=== PATIENT | female | born 1950 | race Caucasian/White ===

== ENCOUNTER 2019-08-30 16:37 | Emergency (ER) | payer BC, MEDICARE ==
[~2019-08-30] VITALS: Ht 160 cm; Wt 123.6 kg
[~2019-08-30 16:37] MED LIST: ALPR.25T PO; HYDR1TAB85 PO; INSU1CAR SQ; VNL75CCR PO; ZLP5T PO
--- NOTE | 2019-08-30 17:31 | Diagnostic Imaging Report ---
EXAMINATION: Left ankle 3 views. HISTORY: Fall. FINDINGS: No comparison available. The ankle mortise is intact. Talar dome is normal. No fracture is seen. There is moderate medial malleolar ankle swelling. Extensive vascular calcifications are seen in the leg. There is mild mid foot osteoarthritis. IMPRESSION: 1. Moderate medial malleolar soft tissue swelling without acute fracture seen. Dictated by: Dictated on workstation # [id number]
--- NOTE | 2019-08-30 17:32 | Diagnostic Imaging Report ---
EXAMINATION: Left tibia and fibula 2 views HISTORY: Fall. FINDINGS: No comparison available. Severe knee osteoarthritis. Study evaluated on the dedicated knee imaging. No fracture is seen in the tibia or fibula. Vascular calcifications are noted. IMPRESSION: 1. No fracture in the left tibia or fibula. Dictated by: Dictated on workstation # [id number]
--- NOTE | 2019-08-30 17:33 | Diagnostic Imaging Report ---
EXAMINATION: Left knee 3 views. HISTORY: Fall. FINDINGS: No comparison available. There is severe medial compartment predominant tricompartmental osteoarthritis. Small knee joint effusion is seen. Large osteophytes or loose bodies are seen in the popliteal fossa. No fracture is seen. IMPRESSION: 1. Severe medial compartment predominant tricompartmental osteoarthritis with a small knee joint effusion. 2. No fracture. Dictated by: Dictated on workstation # [id number]
--- NOTE | 2019-08-30 18:13 | ED Lower Extremity ---
General Chief Complaint: Lower Extremity Stated Complaint: LT LEG/KNEE INJ Nursing Triage Note: Patient presents to the ED with c/o left knee, rodriguez, and ankle. States she fell getting into the car yesterday. Her left leg remained in the car and bent backward causing the heel of her foot to touch her bottom. She states that she doesn't bend that way anymore. She report limited ability to bear weight last night and feel as though it is worse today. She went to [facility] walk-in clinic and was sent to the ED for further evaluation. Nursing Sepsis Screen: No Definite Risk Source: patient Exam Limitations: no limitations Allergies and Home Medications Allergies Coded Allergies: Codeine (Verified Allergy, 11/23/11) adhesive tape (Unverified Allergy, 12/16/11) morphine (Verified Allergy, 11/23/11) penicillin G (Verified Allergy, 11/23/11) Home Medications Alprazolam 0.25 Mg Tablet, 1 TAB PO PRN, (Reported) Hydrocodone Bit/Acetaminophen 1 Each Tablet, 1 EACH PO PRN, (Reported) Venlafaxine Hcl 75 Mg Cap, 75 MG PO TID, (Reported) Zolpidem Tartrate 5 Mg Tablet, 1 EACH PO HS, (Reported) Past Hmazbta-Jgeboo-Iwqhuo Hx Patient Social History Alcohol Use: Denies Use Recreational Drug Use: No Smoking Status: Never a Smoker 2nd Hand Smoke Exposure: No Recent Foreign Travel: No Contact w/Someone Who Travel: No Recent Infectious Disease Expo: No Recent Hopitalizations: No Physical Abuse: No Sexual Abuse: No Mistreated: No Fear: No Seasonal Allergies Seasonal Allergies: No Past Medical History Surgeries: Yes (R Masectomy, R Augmentation, ) Gallbladder, Hysterectomy, Orthopedic, Thyroidectomy Respiratory: No Cardiac: No (Lymphedema) Neurological: No 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 Disorders: No [employer]ER History: Hysterectomy Genitourinary: No Gastrointestinal: No Musculoskeletal: Yes (ARTHRITIS) Endocrine: Yes Diabetes, Insulin dep HEENT: No Cancer: Yes Breast Did You Recieve Any Treatments: Yes What Type of Treatment Did You: Surgical Intervention Psychosocial: No Integumentary: No Blood Disorders: No Physical Exam Vital Signs Vital Signs - First Documented 08/30/19 16:45 Temp 36.3 Pulse 104 Resp 18 B/P (MAP) 147/80 (102) Pulse Ox 98 O2 Delivery Room Air Capillary Refill : Less Than 3 Seconds Height, Weight, BMI Height: '" Weight: lbs. oz. kg; 48.00 BMI Method: Progress/Results/Core Measures Results/Orders My Orders Orders - CARLOS LARA MD Ankle 3 View Left (08/30/19 17:00) Knee 3 View Left (08/30/19 17:00) Tibia Fibula 2 View Left (08/30/19 17:01) Vital Signs/I&O 08/30/19 16:45 Temp 36.3 Pulse 104 Resp 18 B/P (MAP) 147/80 (102) Pulse Ox 98 O2 Delivery Room Air Blood Pressure Mean: 102 POS Departure Impression Primary Impression: Left knee injury Qualified Codes: S89.92XA - Unspecified injury of left lower leg, initial encounter Additional Impression: Left ankle injury Qualified Codes: S99.912A - Unspecified injury of left ankle, initial encounter Disposition: HOME, SELF-CARE Condition: Stable Departure-Patient Inst. Decision time for Depature: 18:11 Referrals: SELFBERNADINE MD (PCP/Family) Primary Care Physician Patient Instructions: Knee Sprain (DC) Add. Discharge Instructions: You may continue using naproxen 500 mg twice daily. You may add Tylenol (acetaminophen) up to 1000 mg every 6 hours as needed for additional pain relief. Icing in 20 minute intervals may be helpful in reducing pain and swelling for the first 48 hours. If not improving as expected over the next several days, please contact your doctor next week or return to the emergency room. Return to the emergency room if you have worsening symptoms. Gradually increase level of activity as pain allows. All discharge instructions reviewed with patient and/or family. Voiced un derstanding. CARLOS LARA MD Aug 30, 2019 18:13 POS
[2019-08-30 18:20] VITALS: BP 134/94
== END 2019-08-30 18:20 | disposition home or self-care (01) ==
LOC: EDUNIT# 16:37 → ER FS 16:38
DX: S89.92XA Unspecified injury of left lower leg, initial encounter (principal); S99.912A Unspecified injury of left ankle, initial encounter; E11.9 Type 2 diabetes mellitus without complications; Z85.3 Personal history of malignant neoplasm of breast; Z88.5 Allergy status to narcotic agent; Z88.0 Allergy status to penicillin; Z88.8 Allergy status to other drugs, medicaments and biological substances; Z88.6 Allergy status to analgesic agent; Z90.710 Acquired absence of both cervix and uterus; V48.4XXA Person boarding or alighting a car injured in noncollision transport accident, initial encounter
CPT/HCPCS: 73562; 73590; 73610

== ENCOUNTER → 2019-09-17 | Outpatient (CLI) | payer BC, MEDICARE ==
--- NOTE | 2019-09-17 09:54 | Diagnostic Imaging Report ---
MRI LT LOWER EXT JOINT W/O TECHNIQUE: Multiplanar, multisequence MR imaging of the left knee was performed without contrast. COMPARISON: Left knee radiographs from 08/30/2019 INDICATION: Left knee pain. FINDINGS: Medial compartment: Diffuse full-thickness articular cartilage loss throughout the medial compartment. There is associated underlying subchondral bone marrow edema on both sides of the joint. Degenerative macerated tearing is present throughout the entire medial meniscus with no residual normal meniscus seen in the posterior horn or body. Lateral compartment: Diffuse chondral thinning/where throughout the lateral compartment. Degenerative free edge tear in the body and posterior horn is present. Patellofemoral compartment: Multifocal partial thickness chondral loss throughout the patellofemoral compartment. Focal full-thickness chondral fissuring in the patellar apex. Tendons and ligaments: ACL and PCL appear to remain intact allowing for motion artifact. Medial and lateral collateral ligamentous complexes are also intact. Extensor mechanism is normal. Soft tissues: No knee joint effusion. No Hanna's cyst. Bones: No fracture or marrow replacing process. IMPRESSION: 1. Severe tricompartmental osteoarthritis is most advanced in the medial compartment. 2. There is associated degenerative macerated tearing of the entire medial meniscus. Dictated by: Dictated on workstation # [id number]
--- NOTE | 2019-09-17 09:59 | Diagnostic Imaging Report ---
PROCEDURE: MRI lumbar spine. TECHNIQUE: Multiplanar, multisequence MRI of the lumbar spine was performed without contrast. INDICATION: Recent fall. Now with left knee and lower back pain. COMPARISON: None. FINDINGS: For the purposes of this exam, last well-formed disc space is denoted the L5-S1 level. Static alignment of the lumbar spine is preserved. There is no significant pippa or retrolisthesis. There is no evidence of jumped facets. Vertebral body heights are maintained. There is no evidence of acute fracture. Evaluation of the marrow signal demonstrates mild Modic type I change involving the adjacent endplates at the L3-L4 level on the left. Multiple benign-appearing hemangiomas are also noted. Otherwise, marrow signal is unremarkable. There is multilevel intervertebral disc height loss with anterior and posterior disc bulges. Visualized portions of the distal cord are unremarkable. Conus terminates at approximately the L1 level. No abnormal intrathecal filling defects are seen. Pre and paravertebral soft tissue structures are unremarkable. Axial images demonstrate the following: T12-L1: There is no large disc bulge or focal protrusion. There is no significant spinal canal or neuroforaminal stenosis. L1-L2: There is mild broad-based posterior disc bulge. This results in minimal narrowing of the spinal canal. Neuroforamen are unremarkable. L2-L3: There is broad-based posterior disc bulge and bilateral ligamentum flavum laxity and facet arthropathy. As a result, there is mild narrowing of the spinal canal and bilateral neuroforamen. L3-L4: There is mild broad-based posterior disc bulge and bilateral ligamentum flavum laxity and facet arthropathy. As a result, there is mild narrowing of the spinal canal and bilateral neuroforamen. L4-L5: There is broad-based posterior disc bulge and prominent bilateral ligamentum flavum laxity and facet arthropathy. As a result, there is moderate stenosis of the spinal canal and bilateral neuroforamen. L5-S1: There is no large disc bulge or focal protrusion. There is prominent bilateral facet arthropathy, but no significant spinal canal or neuroforaminal stenosis. IMPRESSION: 1. Multilevel degenerative changes in the lumbar spine, greatest at the L4-L5 level as described above. 2. No acute fracture or dislocation. Dictated by: Dictated on workstation # [id number]
== END ==
LOC: RAD 07:44
PROVIDERS: ATTEND Family Medicine
DX: M17.12 Unilateral primary osteoarthritis, left knee (principal); S83.242A Other tear of medial meniscus, current injury, left knee, initial encounter; M47.816 Spondylosis without myelopathy or radiculopathy, lumbar region; M51.26 Other intervertebral disc displacement, lumbar region; M48.061 Spinal stenosis, lumbar region without neurogenic claudication
CPT/HCPCS: 72148; 73721

== ENCOUNTER 2019-12-24 14:26 | Observation (INO) | payer BC, MEDICARE ==
[~2019-12-24] VITALS: Ht 160 cm; Wt 114.5 kg
--- NOTE | 2019-12-24 14:34 | NUR ---
Pt's family stated she has been out of insulin for insulin pump and asked if we were going to check sugar. I asked the doctor and she stated we can do a finger stick. Tech was delegated to do finger stick.
--- NOTE | 2019-12-24 14:56 | ED Upper Extremity ---
General Chief Complaint: Trauma-Non Activation Stated Complaint: FALL; HEAD INJ Source: patient Exam Limitations: no limitations History of Present Illness Date Seen by Provider: Dec 24, 2019 Time Seen by Provider: 14:48 Initial Comments Patient presents with complaint of neck pain and left shoulder pain. Injury occurring 3 days ago when she got out of bed, slipped on her carpet and fell forward hitting the left side of her head on a nightstand. Did not recall losing consciousness, but her significant other said he found her laying on the floor, awake couple hours after the fall. She denies headache, confusion or dizziness. Does have pain, left forehead in the area that she hit the nightstand and was bruised. Denies radiation of pain from her neck, however is having trouble moving her left arm secondary to pain. Also, requests check of her BP b/c she states she ran out of her insulin today......Accu-check > 600. Allergies and Home Medications Allergies Coded Allergies: adhesive tape (Unverified Allergy, Unknown, 12/24/19) codeine (Verified Allergy, Unknown, 12/24/19) morphine (Verified Allergy, Unknown, 12/24/19) penicillin G (Verified Allergy, Unknown, 12/24/19) Home Medications Atorvastatin Calcium 20 Mg Tablet, 20 MG PO DAILY, (Reported) PT TAKING 20MG AND 40MG Atorvastatin Calcium 40 Mg Tablet, 40 MG PO DAILY, (Reported) TAKING 40MG AND 20 MG Gabapentin 300 Mg Capsule, 300 MG PO BID, (Reported) Gabapentin 300 Mg Capsule, 600 MG PO 1300, (Reported) Levothyroxine Sodium 112 Mcg Tablet, 112 MCG PO DAILY, (Reported) Naproxen 500 Mg Tablet, 500 MG PO BID PRN for PAIN-MILD (1-4), (Reported) Olanzapine 5 Mg Tablet, 5 MG PO HS, (Reported) Venlafaxine HCl 75 Mg Tab, 75 MG PO TID, (Reported) Patient Home Medication List Home Medication List Reviewed: Yes Review of Systems Constitutional: see HPI, malaise, weakness EENTM: No ear pain, No hoarseness, No mouth pain, No nose congestion, No nose pain Respiratory: cough; No short of breath Cardiovascular: No chest pain, No palpitations, No syncope Gastrointestinal: No abdominal pain, No loss of appetite, No nausea, No vomiting Genitourinary: decreased output; No dysuria, No frequency, No hematuria, No hesitancy Musculoskeletal: back pain (upper), joint pain (left shoulder), neck pain Skin: No change in color, No rash Past Mliokgx-Itrjwu-Ybsddx Hx Past Med/Social Hx: Reviewed Nursing Past Med/Soc Hx Patient Social History 2nd Hand Smoke Exposure: No Recent Foreign Travel: No Contact w/Someone Who Travel: No Recent Hopitalizations: No Seasonal Allergies Seasonal Allergies: No Past Medical History Surgeries: Yes (R Masectomy, R Augmentation, ) Gallbladder, Hysterectomy, Orthopedic, Thyroidectomy Respiratory: No Cardiac: No (Lymphedema) Neurological: No 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 oz. kg; 48.00 BMI Method: General Appearance: WD/WN, no apparent distress, obese HEENT: PERRL/EOMI, TMs normal, other (abrasion and ecchymosis left forehead and supraorbital ridge. Very Dry oral mucosa) Neck: supple, limited range of motion, tender lateral, tender midline (lower cervical spine) Cardiovascular: regular rate, rhythm, no edema, no JVD Respiratory: chest non-tender, lungs clear, normal breath sounds Gastrointestinal: non tender, soft Back: normal inspection, no CVA tenderness, vertebral tenderness (upper thoracic- generalized) Shoulder: normal inspection, no evidence of injury; No asymmetry; bone tenderne ss (shoulder); No deformity, No ecchymosis; limited ROM, pain, soft tissue tenderness Elbow/Forearm: normal inspection, non-tender, no evidence of injury, normal ROM Wrist: Yes normal inspection, Yes non-tender, Yes no evidence of injury, Yes normal ROM Hand: normal inspection, non-tender, no evidence of injury, normal ROM Neurologic/Tendon: normal sensation Neurologic/Psychiatric: no motor/sensory deficits, alert, normal mood/affect, oriented x 3 Skin: normal color, warm/dry Progress/Results/Core Measures Results/Orders Lab Results Laboratory Tests Test 12/26/19 11:20 Range/Units Glucometer 260 H 70-110 MG/DL My Orders Medications Given in ED Vital Signs/I&O Progress Progress Note : Progress Note Labs reveal a glucose of 800. Asked if she checks her sugars and she says, "yes, 3 times a day". When did you last check and what was it? On Tuesday and it was 350. Asked when she last had insulin, admits ran out Tuesday. Denies Hx renal problem. Family seems very upset that she is not caring for herself appropriately. Agreed to admission. Explained her Rad studies were without acute findings, but she should follow-up with her PCP regarding her shoulder pain as she could have a RC injury. She expressed understanding. Departure Communication (Admissions) Time/Spoke to Admitting Phy: 17:[address] Meghan Vargas, who accepts for admission. Will continue hydration and transfer to [facility]. Pt given 10u Reg Insulin SC Impression Primary Impression: Hyperglycemia Additional Impressions: Significant closed head trauma within past 3 months Cervical myofascial strain Qualified Codes: S16.1XXA - Strain of muscle, fascia and tendon at neck level, initial encounter Injury of shoulder, left Qualified Codes: S49.92XA - Unspecified injury of left shoulder and upper arm, initial encounter Acute renal failure (ARF) Qualified Codes: N17.9 - Acute kidney failure, unspecified Dehydration Disposition: 01 HOME, SELF-CARE Condition: Improved Admissions Decision to Admit Reason: Admit from ER (General) Decision to Admit/Date: Dec 24, 2019 Time/Decision to Admit Time: 16:30 Departure-Patient Inst. Referrals: SELFBERNADINE MD (PCP/Family) Primary Care Physician ROSITA RUIZ DO Dec 24, 2019 14:56
[2019-12-24] MEDS ORDERED: NS IV 1000 ML 1,000 ML IV STA (15:03)
--- NOTE | 2019-12-24 15:29 | Diagnostic Imaging Report ---
HISTORY: Fall on Tuesday. Back pain TECHNIQUE: 3 views of the thoracic spine. COMPARISON: None. FINDINGS: There are moderate degenerative changes in the thoracic spine at multiple levels with disc height loss and endplate osteophytes. Vertebral body heights are preserved. No acute fracture is seen. Alignment appears normal with no spondylolisthesis seen. IMPRESSION: 1. Moderate degenerative changes in the thoracic spine with no acute fracture identified. Dictated by: Dictated on workstation # [id number]
--- NOTE | 2019-12-24 15:30 | Diagnostic Imaging Report ---
INDICATION: Left shoulder injury from a fall. FINDINGS: Three views of the left shoulder show no fracture or dislocation. There is some narrowing of the acromiohumeral space suggesting chronic rotator cuff pathology. IMPRESSION: Suspected rotator cuff pathology. Shoulder is otherwise unremarkable. Dictated by: Dictated on workstation # [id number]
--- NOTE | 2019-12-24 15:36 | Diagnostic Imaging Report ---
EXAMINATION: CT head and CT cervical spine without contrast. TECHNIQUE: Multiple contiguous axial images were obtained through the brain and cervical spine without the use of intravenous contrast. Sagittal and coronal reformations through the cervical spine were then performed. All CT scans use one or more of the following dose optimizing techniques: automated exposure control, MA and/or KvP adjustment based on a patient size and exam type, or iterative reconstruction. HISTORY: Fall. COMPARISON: None available. FINDINGS: The haywood-white matter differentiation is normal. No mass effect or midline shift. The ventricles are normal in size and configuration. Basilar cisterns are patent. There are no intra- or extra-axial fluid collections. There is no intracranial hemorrhage. The orbits are normal. Paranasal sinuses are normal. Mastoid air cells are clear. No soft tissue abnormality is seen. No osseous lesions or fractures are seen. There is reversal of normal cervical lordosis. There is mild anterolisthesis of C3 on C4. There is mild degenerative disc disease throughout the cervical spine with uncovertebral disease most pronounced at C4-C6. No fracture is seen. Vertebral body heights are normal. The craniocervical junction is normal. No soft tissue abnormality is seen in the neck. Limited views of the superior thorax are normal. There are bilateral carotid bifurcation calcifications. IMPRESSION: 1. No acute intracranial abnormality. 2. No cervical spine fracture. Dictated by: Dictated on workstation # [id number]
[2019-12-24 15:51] LABS: HEMATOCRIT 43 % (35-52); HEMOGLOBIN 14.1 G/DL (11.5-16.0); MEAN CORPUSCULAR HEMOGLOBIN 29 PG (25-34); MEAN CORPUSCULAR HGB CONC 33 G/DL (32-36); MEAN CORPUSCULAR VOLUME 88 FL (80-99); RED CELL DISTRIBUTION WIDTH 13.8 % (10.0-14.5); WHITE BLOOD COUNT 8.1 10^3/uL (4.3-11.0)
[2019-12-24 15:52] LABS: BASOPHILS % (AUTO) 1 % (0-10); EOSINOPHILS # (AUTO) 0.1 10^3/uL (0.0-0.3); EOSINOPHILS % (AUTO) 1 % (0-10); LYMPHOCYTES # (AUTO) 0.8 X 10^3 (1.0-4.0); LYMPHOCYTES % (AUTO) 10 % (12-44); MEAN PLATELET VOLUME 11.3 FL (7.4-10.4); MONOCYTES # (AUTO) 0.5 X 10^3 (0.0-1.0); MONOCYTES % (AUTO) 6 % (0-12); NEUTROPHILS # (AUTO) 6.7 X 10^3 (1.8-7.8); NEUTROPHILS % (AUTO) 82 % (42-75); PLATELET COUNT 344 10^3/uL (130-400)
[2019-12-24 16:08] LABS: POTASSIUM 4.9 MMOL/L (3.6-5.0)
[2019-12-24 16:09] LABS: CREATININE SERUM 2.24 MG/DL (0.60-1.30)
[2019-12-24 16:10] LABS: ALBUMIN 3.7 GM/DL (3.2-4.5); BILIRUBIN,TOTAL 0.6 MG/DL (0.1-1.0); CALCIUM 9.3 MG/DL (8.5-10.1); TOTAL PROTEIN 6.9 GM/DL (6.4-8.2)
[2019-12-24] MEDS ORDERED: inSUlin (REGULAR) HUMAN 1 UNIT/0.01 ML (CHARGE PER UNIT) SC ONE (16:15)
[2019-12-24 16:35] LABS: BILIRUBIN,URINE NEGATIVE (NEGATIVE); CLARITY,URINE CLEAR; COLOR,URINE PALE YELLOW; GLUCOSE, URINE (UA) 3+ (NEGATIVE); KETONES,URINE TRACE (NEGATIVE); LEUKOCYTE ESTERASE ,URINE TRACE (NEGATIVE); NITRITE,URINE NEGATIVE (NEGATIVE); PH,URINE 5.5 (5-9); PROTEIN,URINE NEGATIVE (NEGATIVE)
[2019-12-24 16:36] LABS: BACTERIA,URINE TRACE /HPF; SQUAMOUS EPITHELIAL CELL,UR 0-2 /HPF
--- NOTE | 2019-12-24 17:03 | NUR ---
Daughter wanted to talk to staff without her mother hearinng. Daughter is worried about her mother getting put in a senior care and she is only 69 years old. Daughter thinks she needs a psych consult, because she is not eating or drinking anything, and is not taking her meds. She stated her is very upset with her and her brother will be too. Son of patient walked in at this time and stated patient is addicted to pain medications as well. Son stated, "Her butt will hurt, so she pops a few pills."
--- NOTE | 2019-12-24 17:05 | NUR ---
This RN informed physician about the daughters concerns. Will relay to [place] staff when patient is admitted.
--- NOTE | 2019-12-24 17:08 | NUR ---
Called house sup for Med Surg bed. Horacio will get bed assignment and put it on the tracker.
[2019-12-24] MEDS ORDERED: NS IV 1000 ML 1,000 ML ONE (18:01)
--- NOTE | 2019-12-24 18:09 | NUR ---
REPORT RECEIVED FROM ED
--- NOTE | 2019-12-24 18:14 | NUR ---
Per Dr. Up he wants a second liter running, so this RN put order in. He wants it wide open.
[2019-12-24] MEDS ORDERED: NS IV 1000 ML 1,000 ML IV ONE (18:15)
--- NOTE | 2019-12-24 18:15 | NUR ---
Report was given to RHIANNA ChisholmP with [facility] at this time. 2nd bag of fluid sent with EMS per physician's order. Care was transferred at this time.
--- NOTE | 2019-12-24 19:00 | NUR ---
RO TOLENTINO admitted to room 417-1, with an admitting diagnosis of Hyperglycemia; Acute Renal Failure; Dehydration on 12/24/19 from [place] ED via EMS, accompanied by EMS.RO TOLENTINO introduced to surroundings, call light, bed controls, phone, TV, temperature control, lights, meal times, smoking policy, visitor policy, side rail policy, bathrooms and showers. Patient Rights given to patient in the handbook. RO TOLENTINO verbalizes understanding that [facility] is not responsible for the loss or damage to any personal effects or valuables that are kept in the patients posession during their hospitalization.
[2019-12-24 19:08] VITALS: BP 153/66
[2019-12-24 19:14] VITALS: BP 153/66
[2019-12-24] MEDS ORDERED: inSUlin ASPART (NovoLOG) 1 UNIT/0.01 ML (CHARGE PER UNIT) SC SCH (20:30)
[2019-12-24] MEDS: inSUlin (REGULAR) HUMAN 1 UNIT/0.01 ML (CHARGE PER UNIT) SC NR ×3 (20:46→23:33)
[2019-12-24 20:53] LABS: ABG BASE EXCESS -3.1 MMOL/L (-2.5-2.5); ABG OXYGEN SATURATION 96 % (94-100); ABG PCO2 35 MMHG (35-45); ABG PO2 80 MMHG (79-93); ABG TCO2 22.3 MMOL/L (21.0-31.0); ALLENS TEST YES-POS; INSPIRED O2 ROOM AIR; PATIENT TEMP 36.3; VENTILATOR NO
[2019-12-24] MEDS: NS IV 1000 ML 1,000 ML IV SCH ×2 (21:06→21:10)
[2019-12-24] MEDS ORDERED: ENOXAPARIN 40 MG/0.4 ML (LOVENOX) SYR SC SCH (23:45)
[2019-12-24] MEDS ORDERED: ENOXAPARIN 40 MG/0.4 ML (LOVENOX) SYR ONE (23:49)
[2019-12-25] VITALS (7 sets, daily range): BP systolic 125–162; BP diastolic 57–77
[2019-12-25 00:38] LABS: CALCIUM 8.5 MG/DL (8.5-10.1); CREATININE SERUM 1.76 MG/DL (0.60-1.30); POTASSIUM 3.5 MMOL/L (3.6-5.0)
[2019-12-25] MEDS ORDERED: POTASSIUM CL 10MEQ/50ML IVPB 200 ML IV ONE (00:59)
[2019-12-25] MEDS ORDERED: POTASSIUM CL 10MEQ/50ML IVPB 50 ML IV ONE (01:00)
[2019-12-25] MEDS: inSUlin (REGULAR) HUMAN 1 UNIT/0.01 ML (CHARGE PER UNIT) SC NR (01:10)
[2019-12-25] MEDS: NS IV 1000 ML 1,000 ML IV SCH ×3 (03:55→12:42)
[2019-12-25 06:40] LABS: ALBUMIN 3.1 GM/DL (3.2-4.5); BILIRUBIN,TOTAL 0.5 MG/DL (0.1-1.0); CALCIUM 8.3 MG/DL (8.5-10.1); CREATININE SERUM 1.45 MG/DL (0.60-1.30); POTASSIUM 3.6 MMOL/L (3.6-5.0); TOTAL PROTEIN 5.4 GM/DL (6.4-8.2)
--- NOTE | 2019-12-25 07:00 | NUR ---
1900 - Pt just arrived on floor and this RN just got report from AM Nurse. Pt blood sugar was high per report. Bridge orders from ER stated "Sliding Scale per protocol." Notified PCT to get glucose level before calling Dr. Vargas. PCT unable to get glucose, glucometer unable to read, reading is too high. Notified laboratory so they can get the glucose level. 1999 - Lab called to report critical level, glucose is 732. Notified Dr. Vargas. She wanted to move patient to ICU for drip but there are no ICU beds available. Received orders for 10 units of Humulin R and to check glucose every hour and to call her. 2145 - Glucose level = 539. Dr. Vargas ordered 5 units of Humulin R. 2315 - Glucose level = 524. Dr. Vargas ordered 5 units of Humulin R. 0015 - Glucose level per lab is 474. Potassium = 3.5. 0040 - Glucose level = 408. Notified Dr. Vargas. Received orders for 3 units of Humulin R and 40Meq potassium IV. 0220 - Glucose level = 324. Notified Dr. Vargas, received orders to hold insulin 0345 - Glucose level = 267. Notified Dr. Vargas, received orders to hold insulin and decrease NS IV from 250cc/hr to 150cc/hr. Receive orders to call her glucose is higher than 300 or lower than 100; continue hourly glucose check; and to start Novolog SS "B". 0520 - Glucose level = 266. Hold per order 0620 - Glucose level = 263. Notified Dr. Vargas and received orders to follow sliding scale (pt will received 8 units of Novolog) and to add one time 15 units of Levemir. Followed orders
[2019-12-25] MEDS: inSUlin ASPART (NovoLOG) 1 UNIT/0.01 ML (CHARGE PER UNIT) SC SCH ×4 (07:19→20:51)
[2019-12-25] MEDS ORDERED: KCL 20 MEQ TAB (K-DUR) PO NR (08:15)
[2019-12-25] MEDS ORDERED: CATHETER FLUSH 10 ML SYR IV PRN (08:30)
[2019-12-25] MEDS ORDERED: VNL75T PO (09:14)
[2019-12-25] MEDS ORDERED: OLAN5TAB25 PO (09:14)
[2019-12-25] MEDS ORDERED: GABA-488 PO ×2 (09:14→09:22)
[2019-12-25] MEDS ORDERED: NAPR-915 PO (09:14)
[2019-12-25] MEDS ORDERED: ZOLP10TA PO (09:14)
[2019-12-25] MEDS ORDERED: LEVO112T55 PO (09:14)
[2019-12-25] MEDS ORDERED: KCL 10 MEQ TAB (MICRO K) PO NR (09:15)
[2019-12-25] MEDS ORDERED: INSU100V16 SC (09:36)
--- NOTE | 2019-12-25 09:37 | NUR ---
SPOKE WITH THE PT (SHE HAD A MED LIST), WENT THRU THE EXT MEDS HISTORY AND SPOKE WITH [facility] AND [facility] IN [place] TO COMPLETE THE MED REC. THE LIST THE PATIENT HAD WAS A PRINT OUT FROM [facility] IN [place] DATED FEBRUARY 2019- HOWEVER THIS MED LIST IS NOT CURRENT/UP TO DATE. THERE ARE SEVERAL MEDS ON THE LIST THE PT SAYS SHE NO LONGER TAKES AND SEVERAL THAT HER PHARMACIES HAVE NO RECORD OF. THE FOLLOWING ARE FILL DATES NOT ON THE EXT MED HISTORY: 10-10-2019 LOSARTAN /HCTZ 100/12.5 #90/90DS 12-24-2019 NOVOLOG VIALS #3/UNKNOWN USES WITH PUMP THE FOLLOWING MEDS LISTED ON HER MEDICATION SHEET BUT HAVE NOT BEEN FILLED SO I DID NOT INCLUDE THEM: XANAX 0.25MG OMEPRAZOLE 40MG LASIX 20MG ZYRTEC 10MG ASPIRIN 81MG Addendum: 12/25/19 at 1012 by BASHIR SALEH [facility] PT HAS BEEN PICKING UP ATORVASTATIN 20MG AND 40MG AT THE SAME TIME EACH MONTH FOR THE LAST SEVERAL MONTHS. WHEN I CALLED [facility] TO FIND OUT HOW/WHAT SHE SHOULD BE TAKING THEY ONLY HAVE 20 MG LISTED. I THEN SPOKE WITH THE PT AGAIN AND SHE IS UNSURE OF WHAT SHE IS TAKING VS WHAT IS A DUPLICATE THERAPY. SHE SAYS SHE MUST BE TAKING BOTH STRENGTHS AT THIS POINT. I LET HER KNOW ABOUT THIS POSSIBLE DISCREPANCY AND SHE UNDERSTOOD THEN WHEN SHE IS DISCHARGED SHE MAY NEED TO SPEAK WITH THE PHARMACY ABOUT CANCELING ONE OF THEM
[2019-12-25] MEDS: ENOXAPARIN 40 MG/0.4 ML (LOVENOX) SYR SC SCH ×2 (09:45→20:51)
[2019-12-25] MEDS ORDERED: ATOR20TA66 PO (09:54)
[2019-12-25] MEDS ORDERED: ATOR40TA70 PO (10:08)
--- NOTE | 2019-12-25 10:20 | History & Physical ---
HPI History of Present Illness: 69 yo female fell on Tuesday night when she got up during the night to go to the bathroom, she hit her head on the nightstand and did not know if she lost consciousness, but also ended up laying on the floor for some unknown time, she was shaky and had urinary incontinence. Her found her and her blood sugar was 500s which she states is higher than they have ever been. She ran out of insulin for her pump on Tuesday and reports that finances were the issue with it. She notes that she has not had a history of falls prior to this, but did fall a week ago when she was trying to hurry to the bathroom. She denies chest pain related to the falls. She did have some dizziness with the most recent f all. She denied other falls when I interviewed her, but reported to medical student a fall 6 weeks ago out of the car that resulted in a left medial meniscus tear and she has been using walker since then. She came to the ER yesterday because she was having pain in her shoulder and neck. Her imaging was relatively unremarkable, no acute fractures, but she was found to have blood sug ar in the 800s. She notes that her blood sugar usually runs in 200-300. Today she feels depressed and doesn't want to be here, wants to cry. Source: patient Date seen by provider: Dec 25, 2019 Time Seen by Provider: 09:45 Attending Physician Nubia Vargas MD PCP Self,Patricio CAMPOS Consult Date of Admission Dec 24, 2019 at 17:54 Home Medications Home Medications Reviewed patient Home Medication Reconciliation performed by pharmacy medication reconciliations ground control approach technician and/or nursing. Patients Allergies have been reviewed. Allergies Coded Allergies: adhesive tape (Unverified Allergy, Unknown, 12/24/19) codeine (Verified Allergy, Unknown, 12/24/19) morphine (Verified Allergy, Unknown, 12/24/19) penicillin G (Verified Allergy, Unknown, 12/24/19) KZT-Hqzdsd-Wahwmb Hx Patient Social History Alcohol Use: Denies Use Recreational Drug Use: No Smoking Status: Never a Smoker 2nd Hand Smoke Exposure: No Recent Foreign Travel: No Contact w/other who traveled: No Recent Hopitalizations: No Recent Infectious Disease Expo: No Immunizations Up To Date Date of Influenza Vaccine: Sep 28, 2019 Past Medical History PMHx: Left breast cancer treated with chemo in the Diabetes HTN HLD SurgHx: Left breast removal/reconstruction Right breast reduction Cholecystectomy Family Medical History Significant Family History: Cancer Review of Systems ([facility]) Constitutional: No fever EENTM: No nose congestion, No throat pain Respiratory: No cough, No short of breath Cardiovascular: No chest pain Gastrointestinal: No constipation, No diarrhea, No nausea, No vomiting Genitourinary: No dysuria Musculoskeletal: joint pain Skin: No rash Psychiatric/Neurological: Depressed Reviewed Test Results Reviewed Test Results Lab Laboratory Tests Test 12/24/19 14:52 12/24/19 15:35 12/24/19 16:25 12/24/19 16:33 Range/Units Glucometer > 600 *H > 600 *H 70-110 MG/DL White Blood Count 8.1 4.3-11.0 10^3/uL Red Blood Count 4.90 4.35-5.85 10^6/uL Hemoglobin 14.1 11.5-16.0 G/DL Hematocrit 43 35-52 % Mean Corpuscular Volume 88 80-99 FL Mean Corpuscular Hemoglobin 29 25-34 PG Mean Corpuscular Hemoglobin Concent 33 32-36 G/DL Red Cell Distribution Width 13.8 10.0-14.5 % Platelet Count 344 130-400 10^3/uL Mean Platelet Volume 11.3 H 7.4-10.4 FL Neutrophils (%) (Auto) 82 H 42-75 % Lymphocytes (%) (Auto) 10 L 12-44 % Monocytes (%) (Auto) 6 0-12 % Eosinophils (%) (Auto) 1 0-10 % Basophils (%) (Auto) 1 0-10 % Neutrophils # (Auto) 6.7 1.8-7.8 X 10^3 Lymphocytes # (Auto) 0.8 L 1.0-4.0 X 10^3 Monocytes # (Auto) 0.5 0.0-1.0 X 10^3 Eosinophils # (Auto) 0.1 0.0-0.3 10^3/uL Basophils # (Auto) 0.0 0.0-0.1 10^3/uL Sodium Level 129 L 135-145 MMOL/L Potassium Level 4.9 3.6-5.0 MMOL/L Chloride Level 88 L 98-107 MMOL/L Carbon Dioxide Level 20 L 21-32 MMOL/L Anion Gap 21 H 5-14 MMOL/L Blood Urea Nitrogen 51 H 7-18 MG/DL Creatinine 2.24 H 0.60-1.30 MG/DL Estimat Glomerular Filtration Rate 22 BUN/Creatinine Ratio 23 Glucose Level 822 *H 70-105 MG/DL Calcium Level 9.3 8.5-10.1 MG/DL Corrected Calcium 9.5 8.5-10.1 MG/DL Total Bilirubin 0.6 0.1-1.0 MG/DL Aspartate Amino Transf (AST/SGOT) 17 5-34 U/L Alanine Aminotransferase (ALT/SGPT) 15 0-55 U/L Alkaline Phosphatase 128 40-136 U/L Total Protein 6.9 6.4-8.2 GM/DL Albumin 3.7 3.2-4.5 GM/DL Beta-Hydroxybutyrate (Chem panel) 2.81 H 0.00-0.27 MMOL/L Urine Color PALE YELLOW Urine Clarity CLEAR Urine pH 5.5 5-9 Urine Specific [place] 1.010 L 1.016-1.022 Urine Protein NEGATIVE NEGATIVE Urine Glucose (UA) 3+ H NEGATIVE Urine Ketones TRACE H NEGATIVE Urine Nitrite NEGATIVE NEGATIVE Urine Bilirubin NEGATIVE NEGATIVE Urine Urobilinogen 0.2 < = 1.0 MG/DL Urine Leukocyte Esterase TRACE H NEGATIVE Urine RBC (Auto) TRACE H NEGATIVE Urine RBC 2-5 H /HPF Urine WBC 2-5 /HPF Urine Squamous Epithelial Cells 0-2 /HPF Urine Crystals NONE /LPF Urine Bacteria TRACE /HPF Urine Casts NONE /LPF Urine Mucus NONE /LPF Urine Culture Indicated NO Test 12/24/19 19:19 12/24/19 20:00 12/24/19 20:45 12/24/19 21:47 Range/Units Glucometer > 600 *H 539 *H 70-110 MG/DL Glucose Level 732 *H 70-105 MG/DL Blood Gas Puncture Site RT RADIAL Blood Gas Patient Temperature 36.3 Arterial Blood pH 7.40 7.37-7.43 Arterial Blood Partial Pressure CO2 35 35-45 MMHG Arterial Blood Partial Pressure O2 80 79-93 MMHG Arterial Blood HCO3 21 L 23-27 MMOL/L Arterial Blood Total CO2 22.3 21.0-31.0 MMOL/L Arterial Blood Oxygen Saturation 96 94-100 % Arterial Blood Base Excess -3.1 L -2.5-2.5 MMOL/L Martin Test YES-POS Blood Gas Ventilator Setting NO Blood Gas Inspired Oxygen ROOM AIR Test 12/24/19 23:19 12/25/19 00:10 12/25/19 00:44 12/25/19 02:21 Range/Units Glucometer 524 *H 408 *H 324 H 70-110 MG/DL Sodium Level 135 135-145 MMOL/L Potassium Level 3.5 L 3.6-5.0 MMOL/L Chloride Level 103 98-107 MMOL/L Carbon Dioxide Level 20 L 21-32 MMOL/L Anion Gap 12 5-14 MMOL/L Blood Urea Nitrogen 41 H 7-18 MG/DL Creatinine 1.76 H 0.60-1.30 MG/DL Estimat Glomerular Filtration Rate 29 BUN/Creatinine Ratio 23 Glucose Level 474 *H 70-105 MG/DL Calcium Level 8.5 8.5-10.1 MG/DL Test 12/25/19 03:46 12/25/19 05:24 12/25/19 06:00 12/25/19 06:21 Range/Units Glucometer 267 H 266 H 263 H 70-110 MG/DL Sodium Level 137 135-145 MMOL/L Potassium Level 3.6 3.6-5.0 MMOL/L Chloride Level 106 98-107 MMOL/L Carbon Dioxide Level 19 L 21-32 MMOL/L Anion Gap 12 5-14 MMOL/L Blood Urea Nitrogen 37 H 7-18 MG/DL Creatinine 1.45 H 0.60-1.30 MG/DL Estimat Glomerular Filtration Rate 36 BUN/Creatinine Ratio 26 Glucose Level 302 H 70-105 MG/DL Calcium Level 8.3 L 8.5-10.1 MG/DL Corrected Calcium 9.0 8.5-10.1 MG/DL Total Bilirubin 0.5 0.1-1.0 MG/DL Aspartate Amino Transf (AST/SGOT) 17 5-34 U/L Alanine Aminotransferase (ALT/SGPT) 16 0-55 U/L Alkaline Phosphatase 96 40-136 U/L Total Protein 5.4 L 6.4-8.2 GM/DL Albumin 3.1 L 3.2-4.5 GM/DL Radiology Thoracic spine xray 12/23: IMPRESSION: 1. Moderate degenerative changes in the thoracic spine with no acute fracture identified. Shoulder xray 12/23: IMPRESSION: Suspected rotator cuff pathology. Shoulder is otherwise unremarkable. Head and neck CT 12/23 : IMPRESSION: 1. No acute intracranial abnormality. 2. No cervical spine fracture. Physical Exam-([facility]) Physical Exam Vital Signs VS - Last 72 Hours, by Label 12/24/19 12/24/19 12/24/19 12/24/19 14:30 17:48 19:08 19:14 Temp 35.8 36.2 36.5 36.5 Pulse 93 92 80 80 Resp 18 18 20 20 B/P (MAP) 130/47 (74) 183/67 153/66 153/66 (95) Pulse Ox 97 95 97 97 O2 Delivery Room Air Room Air Room Air Room Air 12/24/19 12/25/19 12/25/19 12/25/19 19:20 00:00 04:00 08:00 Temp 36.6 36.9 36.0 Pulse 73 70 74 Resp 16 18 18 B/P (MAP) 125/71 (89) 142/74 (96) 126/60 (82) Pulse Ox 96 97 96 O2 Delivery Room Air Room Air Room Air Room Air Capillary Refill : Less Than 3 Seconds General Appearance: no apparent distress HEENT: PERRL/EOMI Respiratory: lungs clear, normal breath sounds Cardiovascular: regular rate, rhythm, no edema, no murmur Gastrointestinal: normal bowel sounds, non tender, soft Extremities: no pedal edema Neurologic/Psychiatric: alert, abnormal financial services officer II-XII (decreased hearing bilatera lly, otherwise intact), motor weakness (bilateral hip flexion 4/5), other (oriented to self and date, but not year) Skin: ecchymosis (left eye/face) Assessment/Plan Assessment/Plan Admission Status: Observation (1) Diabetes mellitus Assessment & Plan: Does not know home insulin rate for her pump. Received 33 units of regular insulin IV overnight to get glucose down to 200s. Start levemir 15 units and sliding scale with meals to determine baseline need. No acidosis on ABG. Qualifiers: (2) Hypertension Status: Chronic Qualifiers: Qualified Codes: I10 - Essential (primary) hypertension (3) Hyperlipidemia Status: Chronic Assessment & Plan: Resume home atorvastatin (4) Hypothyroidism Status: Chronic Assessment & Plan: Resume levothyroxine, check TSH (5) Frequent falls Status: Acute Assessment & Plan: Hold Ambien, work with PT (6) Head injury Status: Acute Assessment & Plan: CT head okay on 3/ Qualifiers: Qualified Codes: S09.90XA - Unspecified injury of head, initial encounter (7) Shoulder injury Status: Acute Assessment & Plan: Xray without fracture, but suspect rotator cuff pathology, will need further work-up outpatient. PT. Qualifiers: Qualified Codes: S49.92XA - Unspecified injury of left shoulder and upper arm, initial encounter (8) Acute renal insufficiency Status: Acute Assessment & Plan: Due to hypovolemia related to hyperglycemia. Unclear baseline, improving with insulin and IVF. (9) DVT prophylaxis Status: Acute Assessment & Plan: Enoxaparin Clinical Quality Measures DVT/VTE Risk/Contraindication: Risk Factor Score Per Nursin RFS Level Per Nursing on Admit: 4+=Very High NUBIA VARGAS MD Dec 25, 2019 10:20
[2019-12-25] MEDS ORDERED: NAPROXEN 250 MG (NAPROSYN) TABLET PO PRN (10:30)
[2019-12-25] MEDS: VENlafaxine 75 MG (EFFEXOR) TAB PO SCH ×2 (11:13→20:50)
[2019-12-25] MEDS: GABAPENTIN 600 MG (NEURONTIN) TAB PO SCH (11:51)
--- NOTE | 2019-12-25 14:47 | Physical Therapy Evaluation ---
PT Evaluation-General Medical Diagnosis Admission Date Dec 24, 2019 at 17:54 Medical Diagnosis: Fall, head injury Onset Date: Dec 24, 2019 Therapy Diagnosis Therapy Diagnosis: Debility Precautions Precautions/Isolations: Standard Precautions, Pressure Ulcer Weight Bear Status Right Lower Extremity: Right Weight Bearing/Tolerated Left Lower Extremity: Left Weight Bearing/Tolerated Referral Physician: Sam Reason for Referral: Evaluation/Treatment Medical History Pertinent Medical History: Arthritis, DM, HTN Additional Medical History Breast cancer Current History Patient presented to ER following a fall with neck pain and left shoulder pain. This fall was 3 days prior to presenting to ER when patient fell after getting out of bed and hit her head on bedside table. Social History Home: Single Level Current Living Status: Spouse Entry Into Home: Level Entry Prior Prior Level of Function SCALE: Activities may be completed with or without assistive devices. 5-Jfscngviif-ykpfdsl completes the activity by him/herself with no assistance from a helper. 5-Set-up or Clean-up Assistance-helper sets up or cleans up; patient completes activity. [place] assists only prior to or following the activity. 4-Supervision or Touching Assistance-helper provides verbal cues and/or touching/steadying and/or contact guard assistance as patient completes activity. Assistance may be provided throughout the activity or intermittently. 3-Partial/Moderate Assistance-helper does LESS THAN HALF the effort. [place] lifts, holds or supports trunk or limbs, but provides less than half the effort. 2-Substantial/Maximal Assistance-helper does MORE THAN HALF the effort. [place] lifts or holds trunk or limbs and provides more than half the effort. 0-Hytmnuzlz-kcjxnu does ALL the effort. Patient does none of the effort to complete the activity. Or, the assistance of 2 or more helpers is required for the patient to complete the activity. If activity was not attempted, code reason: 7-Patient Refused. 9-Not Applicable-not attempted and the patient did not perform the activity before the current illness, exacerbation or injury. 10-Not Attempted due to Environmental Limitations-(lack of equipment, weather restraints, etc.). 88-Not Attempted due to Medical Conditions or Safety Concerns. Bed Mobility: 3 Transfers (B,C,W/C): 6 Gait: 6 Indoor Mobility (Ambulation): Independent Prior Devices Use: Walker PT Evaluation-Current Subjective Patient agreeable to therapy at this time. Objective Patient Orientation: Person, Place, Time ROM/Strength ROM Lower Extremities WNL BLE Strength Lower Extremities 4 / 5 gross BLE Integumentary/Posture Integumentary See nursing notes. Neuromuscular (Tone, Coordination, Reflexes) grossly intact. Sensory Vision: Functional Hearing: Functional Sensation Right Lower Extremit: Intact Sensation Left Lower Extremity: Intact Transfers Roll Left to Right (QC): 3 Sit to Lying (QC): 3 Lying to Sitting/Side of Bed(Q: 3 Sit to Stand (QC): 4 Gait Does the Patient Walk?: Yes Mode of Locomotion: Walk Anticipated Mode of Locomotion: Walk Walk 10 feet (QC): 4 Walk 50 ft with 2 Turns(QC): 4 Distance: 100' Gait Assistive Device: FWW Comments/Gait Description CGA for safety. Patient walks with wide KIP. Wheelchair Training Does the Pt Use a Wheelchair?: No Balance Sitting Static: Good Sitting Dynamic: Good Standing Static: Fair Standing Dynamic: Fair Assessment/Needs Patient is fairly steady during ambulation but states she is fearful of falling. Patient needs help with her getting her legs in and out of bed. Rehab Potential: Fair PT Fdc Goals Fdc Goals PT Set Up And Lay Out Inspector Goals Time Frame: Jan 01, 2020 Roll Left & Right (QC): 3 Sit to Lying (QC): 3 Lying-Sitting on Side/Bed(QC): 3 Sit to Stand (QC): 6 Chair/Mue-zb-Ukupx Xfer(QC): 6 Does the Patient Walk: Yes Walk 10 feet (QC): 6 Walk 50ft with 2 Turns (QC): 6 PT Plan Problem List Problem List: Activity Tolerance, Functional Strength, Safety, Balance, Gait, Transfer, Bed Mobility, ROM Treatment/Plan Treatment Plan: Continue Plan of Care Treatment Plan: Bed Mobility, Education, Functional Activity Tasha, Functional Strength, Gait, Safety, Therapeutic Exercise, Transfers Treatment Duration: Jan 01, 2020 Frequency: 5 times per week Estimated Hrs Per Day: .25 hour per day Safety Risks/Education Patient Education: Gait Training, Transfer Techniques Teaching Recipient: Patient Teaching Methods: Demonstration, Discussion Response to Teaching: Reinforcement Needed Discharge Recommendations Therapy Discharge Recommendati: Home & Family Time/GCodes Time In: 1343 Time Out: 1354 Total Billed Treatment Time: 11 Total Billed Treatment 1 visit EVL 11 SAVANA GIVENS PT Dec 25, 2019 14:47
[2019-12-25] MEDS ORDERED: inSUlin ASPART (NovoLOG) 1 UNIT/0.01 ML (CHARGE PER UNIT) SC SCH (16:00)
[2019-12-25] MEDS ORDERED: inSUlin ASPART (NovoLOG) 1 UNIT/0.01 ML (CHARGE PER UNIT) SC NR (17:00)
[2019-12-25] MEDS: GABAPENTIN 300 MG (NEURONTIN) CAP PO SCH (20:50)
[2019-12-25] MEDS ORDERED: OLANZapine 5 MG (ZyPREXA) TAB PO SCH (21:00)
[2019-12-25] MEDS ORDERED: inSUlin (REGULAR) HUMAN 1 UNIT/0.01 ML (CHARGE PER UNIT) IV ONE (22:30)
--- NOTE | 2019-12-25 22:32 | NUR ---
DR FIELDS CALLED TO KNOW ABOUT PT BLOOD SUGAR. BLOOD SUGAR 420. DR FIELDS NOTIFIED. NEW ORDERS TO GIVE 10 UNITS OF REGULAR INSULIN IV, TO RECHECK BLOOD SUGAR IN 4 HRS AND CALL HER BACK IF BLOOD SUGAR IS >300
[2019-12-26] MEDS: NS IV 1000 ML 1,000 ML IV SCH ×3 (00:03→11:40)
[2019-12-26 03:40] VITALS: BP 145/61
[2019-12-26 04:57] LABS: HEMOGLOBIN 11.3 G/DL (11.5-16.0); MEAN PLATELET VOLUME 10.8 FL (7.4-10.4); RED CELL DISTRIBUTION WIDTH 14.1 % (10.0-14.5); WHITE BLOOD COUNT 6.4 10^3/uL (4.3-11.0)
[2019-12-26 05:20] LABS: CALCIUM 8.1 MG/DL (8.5-10.1); CREATININE SERUM 1.08 MG/DL (0.60-1.30); POTASSIUM 3.7 MMOL/L (3.6-5.0)
[2019-12-26] MEDS ORDERED: LEVOTHYROXINE 112 MCG (LEVOTHROID) TAB PO SCH (06:30)
[2019-12-26] MEDS: inSUlin ASPART (NovoLOG) 1 UNIT/0.01 ML (CHARGE PER UNIT) SC SCH ×4 (06:46→11:40)
[2019-12-26 08:00] VITALS: BP 168/70
--- NOTE | 2019-12-26 08:06 | Progress Note ---
IONA GODFREY MED STUDENT 12/26/19 0806: Subjective Subjective/Events-last exam Mrs. Lopez feels like she is doing better today. She was able to get some sleep overnight, and she just feels better in general. Her only complaint this morning was that her chronic pain in her feet is present; it had improved with gabapentin yesterday. When asked, she did say that she still has some L shoulder pain and difficulty moving that arm, but she feels like it is improving. Her s light headache from yesterday is gone, and she feels like her vision is clearer this morning than it had been over the weekend. Review of Systems General: Fatigue ("I just keep falling asleep") HEENT: No Head Aches; Visual Changes (Improvement of her blurry vision) Pulmonary: No Cough, No Pleuritic Chest Pain Cardiovascular: No: Chest Pain, Palpitations Gastrointestinal: No: Nausea, Vomiting, Diarrhea Genitourinary: No Dysuria Musculoskeletal: arm pain, foot pain Neurological: No: Change in speech Objective Exam Last Set of Vital Signs Vital Signs Date Time Temp Pulse Resp B/P (MAP) Pulse Ox O2 Delivery O2 Flow Rate FiO2 12/26/19 03:40 36.3 78 18 145/61 (89) 93 Room Air Capillary Refill : Less Than 3 Seconds I&O Intake and Output 12/26/19 00:00 Intake Total 4100 ml Output Total 600 ml Balance 3500 ml Intake Oral 2050 ml IV Total 2050 ml Output Urine Total 600 ml # Voids 7 # Bowel Movements 2 General: Alert, Cooperative, No Acute Distress HEENT: Other (Bruising and scab present above L eye) Lungs: Clear to Auscultation Heart: Regular Rate Abdomen: Normal Bowel Sounds, Soft, No Tenderness Extremities: No Edema Neuro: Normal Speech Psych/Mental Status: Mood NL Results/Procedures Lab Laboratory Tests 12/25/19 11:23: Glucometer 390H 12/25/19 15:35: Glucometer 412*H 12/25/19 19:57: Glucometer 456*H 12/25/19 22:06: Glucometer 420*H 12/26/19 02:56: Glucometer 188H 12/26/19 04:43: White Blood Count 6.4, Red Blood Count 3.97L, Hemoglobin 11.3L, Hematocrit 35, Mean Corpuscular Volume 87, Mean Corpuscular Hemoglobin 28, Mean Corpuscular Hemoglobin Concent 33, Red Cell Distribution Width 14.1, Platelet Count 291, Mean Platelet Volume 10.8H, Sodium Level 140, Potassium Level 3.7, Chloride Level 110H, Carbon Dioxide Level 23, Anion Gap 7, Blood Urea Nitrogen 27H, Creatinine 1.08, Estimat Glomerular Filtration Rate 51, BUN/Creatinine Ratio 25, Glucose Level 201H, Calcium Level 8.1L 12/26/19 05:22: Glucometer 216H Radiology Thoracic spine xray 12/23: IMPRESSION: 1. Moderate degenerative changes in the thoracic spine with no acute fracture identified. Shoulder xray 12/23: IMPRESSION: Suspected rotator cuff pathology. Shoulder is otherwise unremarkable. Head and neck CT 12/23 : IMPRESSION: 1. No acute intracranial abnormality. 2. No cervical spine fracture. Assessment/Plan Assessment/Plan Admission Dx #Hyperglycemia #Diabetes Mellitus - Blood sugar ranging 188-216 overnight - Will calculate amount on insulin used over 24h period to use as starting point for amount of insulin to start on discharge - Arranged for follow up appointment with Dr. Barnard on 12/26; made contact with diabetes educator to see pt - Checked to see that pt had picked up insulin/has insulin available upon discharge; was picked up 12/23 #Renal insufficiency - BUN improved today, 27 from 37 yesterday - Anticipate continued improvement with glycemic control and PO intake #Hx of Falls - Recommend continuing PT to improve strength and increase comfort with walker - Recommend discontinuing Ambien with history of falls #Shoulder Pain - Pt reports improvement today - Can follow up on outpatient basis if desired #Chronic Foot Pain - Continue NURSING EDUCATOR gabapentin #HTN #HLD - Continue NURSING EDUCATOR meds #Hypothyroidism - Continue NURSING EDUCATOR med (1) Diabetes mellitus Status: Chronic Assessment & Plan: Does not know home insulin rate for her pump. Received 33 units of regular insulin IV overnight to get glucose down to 200s. Start levemir 15 units and sliding scale with meals to determine baseline need. No acidosis on ABG. Qualifiers: (2) Hypertension Status: Chronic Qualifiers: Qualified Codes: I10 - Essential (primary) hypertension (3) Hyperlipidemia Status: Chronic Assessment & Plan: Resume home atorvastatin (4) Hypothyroidism Status: Chronic Assessment & Plan: Resume levothyroxine, check TSH (5) Frequent falls Status: Acute Assessment & Plan: Hold Ambien, work with PT (6) Head injury Status: Acute Assessment & Plan: CT head okay on 12/23 Qualifiers: Qualified Codes: S09.90XA - Unspecified injury of head, initial encounter (7) Shoulder injury Status: Acute Assessment & Plan: Xray without fracture, but suspect rotator cuff pathology, will need further work-up outpatient. PT. Qualifiers: Qualified Codes: S49.92XA - Unspecified injury of left shoulder and upper arm, initial encounter (8) Acute renal insufficiency Status: Acute Assessment & Plan: Due to hypovolemia related to hyperglycemia. Unclear baseline, improving with insulin and IVF. (9) DVT prophylaxis Status: Acute Assessment & Plan: Enoxaparin Clinical Quality Measures DVT/VTE Risk/Contraindication: Risk Factor Score Per Nursin RFS Level Per Nursing on Admit: 4+=Very High NUBIA FIELDS MD 12/26/19 2629: Supervisory-Addendum Brief Verification & Attestation Participated in pt care: history, MDM, physical Personally performed: exam, history, MDM Care discussed with: Medical Student Procedures: n/a See d/c summary for my documentation. IONA GODFREY MED STUDENT Dec 26, 2019 08:06 NUBIA FIELDS MD Dec 26, 2019 14:59
[2019-12-26] MEDS: ENOXAPARIN 40 MG/0.4 ML (LOVENOX) SYR SC SCH (08:44)
[2019-12-26] MEDS: GABAPENTIN 300 MG (NEURONTIN) CAP PO SCH (08:45)
[2019-12-26] MEDS: VENlafaxine 75 MG (EFFEXOR) TAB PO SCH ×2 (08:45→11:39)
--- NOTE | 2019-12-26 09:23 | Physical Therapy Daily Note ---
PT Daily Note-Current Subjective Patient in bed agreeable to therapy at this time. Patient states no pain at this time. Pain Numeric Pain Scale: 0-No Pain Appearance Patient in bed with call light and bedside table within reach. Mental Status Patient Orientation: Person, Place, Time, Situation Attachments: IV Transfers SCALE: Activities may be completed with or without assistive devices. 5-Eubckqgngy-pfxibzi completes the activity by him/herself with no assistance from a helper. 5-Set-up or Clean-up Assistance-helper sets up or cleans up; patient completes activity. [place] assists only prior to or following the activity. 4-Supervision or Touching Assistance-helper provides verbal cues and/or touching/steadying and/or contact guard assistance as patient completes activity. Assistance may be provided throughout the activity or intermittently. 3-Partial/Moderate Assistance-helper does LESS THAN HALF the effort. [place] lifts, holds or supports trunk or limbs, but provides less than half the effort. 2-Substantial/Maximal Assistance-helper does MORE THAN HALF the effort. [place] lifts or holds trunk or limbs and provides more than half the effort. 8-Tbkuaxspx-ztjcic does ALL the effort. Patient does none of the effort to complete the activity. Or, the assistance of 2 or more helpers is required for the patient to complete the activity. If activity was not attempted, code reason: 7-Patient Refused. 9-Not Applicable-not attempted and the patient did not perform the activity before the current illness, exacerbation or injury. 10-Not Attempted due to Environmental Limitations-(lack of equipment, weather restraints, etc.). 88-Not Attempted due to Medical Conditions or Safety Concerns. Roll Left & Right (QC): 6 Sit to Lying (QC): 3 Lying to Sitting/Side of Bed(Q: 3 Sit to Stand (QC): 3 Weight Bearing Right Lower Extremity: Right Weight Bearing/Tolerated Left Lower Extremity: Left Weight Bearing/Tolerated Gait Training Does the Patient Walk?: Yes Distance: 100' Walk 10 feet (QC): 4 Walk 50 ft with 2 Turns(QC): 4 Gait Assistive Device: FWW CGA for safety. Patient walks with wide base of support. Wheelchair Training Does the Pt Use a Wheelchair?: No Treatments Ambulation, transfers, bed mobility. Assessment Current Status: Fair Progress Patient needs assist with moving her legs to get into and out of bed. Patient is steady during ambulation, walking at a decreased speed with a wide KIP. Patient fatigues quickly. PT Usp Goals Senior Editor Goals PT Usp Goals Time Frame: Jan 01, 2020 Roll Left & Right (QC): 3 Sit to Lying (QC): 3 Lying-Sitting on Side/Bed(QC): 3 Sit to Stand (QC): 6 Chair/Dgq-ai-Tphyh Xfer(QC): 6 Does the Patient Walk: Yes Walk 10 feet (QC): 6 Walk 50ft with 2 Turns (QC): 6 PT Plan Problem List Problem List: Activity Tolerance, Functional Strength, Safety, Balance, Gait, Transfer, Bed Mobility, ROM Treatment/Plan Treatment Plan: Continue Plan of Care Treatment Plan: Bed Mobility, Education, Functional Activity Tasha, Functional Strength, Gait, Safety, Therapeutic Exercise, Transfers Treatment Duration: Jan 01, 2020 Frequency: 5 times per week Estimated Hrs Per Day: .25 hour per day Safety Risks/Education Patient Education: Gait Training, Transfer Techniques Teaching Recipient: Patient Teaching Methods: Demonstration, Discussion Response to Teaching: Reinforcement Needed Time/GCodes Time In: 905 Time Out: 920 Total Billed Treatment Time: 15 Total Billed Treatment 1 visit GT 15 RUBIN BARNETT CPTA Dec 26, 2019 09:23
--- NOTE | 2019-12-26 11:03 | Discharge Summary ---
Discharge Summary Hospital Course Problems/Diagnosis: (1) Diabetes mellitus Status: Chronic Assessment & Plan: Does not know home insulin rate for her pump. Received 33 units of regular insulin IV overnight to get glucose down to 200s. Start levemir 15 units and sliding scale with meals to determine baseline need. No acidosis on ABG. 12/25 required high doses of insulin throughout stay to get blood sugar down to 200s, she confirmed she had the insulin for her pump and would resume on d/c and has follow up tomorrow morning for pump and with primary. Qualifiers: (2) Hypertension Status: Chronic Qualifiers: Qualified Codes: I10 - Essential (primary) hypertension (3) Hyperlipidemia Status: Chronic Assessment & Plan: Resume home atorvastatin (4) Hypothyroidism Status: Chronic Assessment & Plan: Resume levothyroxine, TSH okay. (5) Frequent falls Status: Acute Assessment & Plan: Hang Mehta, worked with PT (6) Head injury Status: Acute Assessment & Plan: CT head okay on 12/23 Qualifiers: Qualified Codes: S09.90XA - Unspecified injury of head, initial encounter (7) Shoulder injury Status: Acute Assessment & Plan: Xray without fracture, but suspect rotator cuff pathology, will need further work-up outpatient. PT. Qualifiers: Qualified Codes: S49.92XA - Unspecified injury of left shoulder and upper arm, initial encounter (8) Acute renal insufficiency Status: Acute Assessment & Plan: Due to hypovolemia related to hyperglycemia. Unclear baseline, improving with insulin and IVF, creatinine in normal range at d/c. Hospital Course Date of Admission: Dec 24, 2019 at 17:54 Admission Diagnosis : Family Physician/Provider: Patricio Barnard MD Date of Discharge: 12/26/19 Discharge Diagnosis: See problem list Hospital Course: See problem list Labs and Pending Lab Test: Laboratory Tests 12/25/19 11:23: Glucometer 390H 12/25/19 15:35: Glucometer 412*H 12/25/19 19:57: Glucometer 456*H 12/25/19 22:06: Glucometer 420*H 12/26/19 02:56: Glucometer 188H 12/26/19 04:43: White Blood Count 6.4, Red Blood Count 3.97L, Hemoglobin 11.3L, Hematocrit 35, Mean Corpuscular Volume 87, Mean Corpuscular Hemoglobin 28, Mean Corpuscular Hemoglobin Concent 33, Red Cell Distribution Width 14.1, Platelet Count 291, Mean Platelet Volume 10.8H, Sodium Level 140, Potassium Level 3.7, Chloride Level 110H, Carbon Dioxide Level 23, Anion Gap 7, Blood Urea Nitrogen 27H, Creatinine 1.08, Estimat Glomerular Filtration Rate 51, BUN/Creatinine Ratio 25, Glucose Level 201H, Calcium Level 8.1L 12/26/19 05:22: Glucometer 216H Home Meds Active Reported Atorvastatin Calcium 40 Mg Tablet 40 Mg PO DAILY TAKING 40MG AND 20 MG Atorvastatin Calcium 20 Mg Tablet 20 Mg PO DAILY PT TAKING 20MG AND 40MG Novolog (Insulin Aspart) 100 Unit/1 Ml Susp Unit SC USES WITH INSULIN PUMP Gabapentin 300 Mg Capsule 600 Mg PO 1300 Levothyroxine Sodium 112 Mcg Tablet 112 Mcg PO DAILY Venlafaxine HCl 75 Mg Tab 75 Mg PO TID Olanzapine 5 Mg Tablet 5 Mg PO HS Gabapentin 300 Mg Capsule 300 Mg PO BID Naproxen 500 Mg Tablet 500 Mg PO BID PRN Ambien (Zolpidem Tartrate) 10 Mg Tablet 10 Mg PO HS PRN Assessment/Pt DC Instructions Follow up with Manjula Cox at 8:30 on 12/[address] Barnard on at 9:30 on 12/26. Discharge Diet: ADA Diet Activity as Tolerated: Yes Orders-Post D/C & Referrals Pneu Vac Indicated: Yes Discharge Physical Examination Allergies: Coded Allergies: adhesive tape (Unverified Allergy, Unknown, 12/24/19) codeine (Verified Allergy, Unknown, 12/24/19) morphine (Verified Allergy, Unknown, 12/24/19) penicillin G (Verified Allergy, Unknown, 12/24/19) General Appearance: No Apparent Distress HEENT: Other (ecchymosis to left face) Respiratory: Lungs Clear, Normal Breath Sounds Cardiovascular: Regular Rate, Rhythm, Systolic Murmur Skin: Normal Color, Warm/Dry Neurologic/Psychiatric: Alert, Normal Mood/Affect Copy Copies To 1: PATRICIO BARNARD MD Clinical Quality Measures DVT/VTE Risk/Contraindication: Risk Factor Score Per Nursin RFS Level Per Nursing on Admit: 4+=Very High NUBIA FIELDS MD Dec 26, 2019 11:03
[2019-12-26] MEDS: GABAPENTIN 600 MG (NEURONTIN) TAB PO SCH (11:39)
[2019-12-26 14:45] VITALS: BP 168/70
--- NOTE | 2019-12-26 14:45 | NUR ---
discharge instructions given, verbalized understanding of follow up appointment and instructed to start insulin pump when she gets home as instructed by Dr Vargas. IV removed, site without redness or swelling
--- OUTSIDE RECORDS SUMMARY | 2019-12-29 12:22 | XMS REPORT ---
Author Author Dannielle LUNDBERG [facility] Address [address] [place] [address] Care Team Providers Care Security Tester Name Role Phone JOAQUIN LUNDBERGWELL Unavailable PROBLEMS Type Condition ICD9-CM Code TEU65-KU Code Onset Dates Condition S tatus SNOMED Code Problem Primary osteoarthritis of left knee M17.12 18 J 2014 Active 887597919 Problem Esophageal reflux K21.9 Active 24 2802865 Problem Microalbuminuria R80.9 11 Dec, 2015 Active 336469025 Problem Depressive disorder, not elsewhere classified F32. 9 Active 89727488 Problem Morbid obesity with BMI of 50.0-59.9, adult E66 .01 Apr, Active 713283520 Problem Multinodular thyroid E04.2 14 Apr, 2016 Active 52000381 Problem Anxiety F41.9 14 Nov, 2014 Active 6122458 2 Problem Elevated pulse rate R00.0 Active 6634569 Problem Thyrotoxicosis, unspecified without thyrotoxic crisis or storm E05.90 Active 37972612 Problem Essential (primary) hypertension I10 Active 14344503 Problem Type 1 diabetes mellitus with ketoacidosis without coma E10.10 Active 642812284 Problem Malignant neoplasm of breast (female), unspecified site C50.919 Active 756512234 Problem Gastroparesis K31.84 Active 272367 006 Problem Chronic right hip pain M25.551 Jul, Acti ve 577067848 Problem Vitamin D deficiency, unspecified E55.9 Active 41540812 Problem Type 1 diabetes mellitus with ketoacidosis and without com a E10.10 Active 314597847 Problem Insulin long-term use Z79.4 Active 048432873 Problem Stage 3 chronic kidney disease N18.3 Active 712799379 ALLERGIES No Information ENCOUNTERS Encounter Location Date Diagnosis [address] [place] [address] Nov, [facility] [address] [id number] [place] [address] Nov, [facility] [address] [id number] [place] [address] Oct, [address] [place] [address] Oct, [facility] [address] [place] [address] Oct, [address] [place] [address] Oct, [facility] [id number] [place] [address] Sep, [facility] [address] [id number] [place] [address] Sep, [facility] [address] [place] [address] Sep, [address] [place] [address] Sep, Acute bilateral low back yisel n without sciatica M54.5 [facility] [address] [place] [address] Aug, [facility] [address] [place] [address] Aug, Radicular leg pain M54.10 an d Acute pain of left knee M25.562 [facility] [address] [id number] [place] [address] Aug, [address] [place] [address] Aug, [address] [place] [address] Aug, Essential (primary) hyperten elisha I10 ; Fall, initial encounter W19.XXXA ; Radicular leg pain M54.10 ; Acute bilateral low back pain without sciatica M54.5 ; Acute pain of left knee M25.562 ; Anemia, unspecified type D64.9 ; Anxiety F41.9 ; Type 1 diabetes mellitus with ketoacidosis without coma E10.10 ; Gastroparesis K31.84 and Stage 3 chronic kidney disease N18.3 [facility] [address] [id number] [place] [address] 08 Aug, 2019 [facility] [address] [place] [address] Aug, [facility] [address] [place] [address] Aug, [facility] [address] [facility] [address] [address] [address] [place] [address] Aug, [facility] [address] [place] [address] Aug, [facility] [address] [place] [address] Aug, [facility] [address] [place] [address] Aug, [facility] [id number] [place] [address] Aug, [facility] [id number] [place] [address] Jul, [facility] [address] [address] Jul, [address] [place] [address] Jul, [facility] [address] [address] Jul, [address] [place] [address] Jul, Essential (primary) hyperten elisha I10 ; Stage 3 chronic kidney disease N18.3 and Achilles tendinitis of left lower extremity M76.[id number] [id number] [place] [address] Jul, [facility] [address] [place] [address] Jul, Left ankle pain M25.572 [facility] [address] [id number] [place] [address] Jul, [facility] [address] [place] [address] Jun, [facility] [address] [place] [address] Jun, [facility] [id number] [place] [address] Jun, [facility] [address] [place] [address] Jun, [facility] [address] [id number] [place] [address] Jun, [facility] [address] [place] [address] Jun, [facility] [address] [id number] [place] [address] Jun, [facility] [address] [place] [address] May, Type 1 diabetes mellitus wit h ketoacidosis without coma E10.10 ; Anxiety F41.9 ; Morbid obesity E66.01 and Screening mammogram, encounter for Z12.31 [facility] [address] [place] [address] May, Type 1 diabetes mellitus wit h ketoacidosis without coma E10.10 [facility] [address] [id number] [place] [address] May, [facility] [address] [place] [address] May, [facility] [address] [id number] [place] [address] May, [facility] [address] [id number] [place] [address] Apr, [facility] [address] [place] [address] Apr, Insulin long-term use Z79.4 [facility] [id number] [place] [address] Apr, [facility] [id number] [place] [address] Apr, [facility] [address] [place] [address] Apr, Type 1 diabetes mellitus wit h ketoacidosis and without coma E10.10 [facility] [id number] [place] [address] Apr, [facility] [id number] [place] [address] Apr, [facility] [address] [place] [address] Apr, [facility] [address] [id number] [place] [address] Apr, Type 1 diabetes mellitus with ketoacidos is without coma E10.10 [facility] [address] [place] [address] Apr, [facility] [address] [place] [address] Apr, Type 1 diabetes mellitus wit h ketoacidosis and without coma E10.10 [facility] [id number] [place] [address] Apr, [facility] [id number] [place] [address] Apr, [facility] [address] [place] [address] Mar, [facility] [address] [id number] [place] [address] Mar, [facility] [address] [place] [address] Mar, [facility] [address] [place] [address] February, [facility] [address] [place] [address] February, [facility] [address] [place] [address] February, [facility] [id number] [place] [address] [id number] [place] [address] February, Type 2 diabetes mellitus without complic ations E11.9 [facility] [address] [facility] [id number] [place] [address] February, Type 1 diabetes mellitus with ketoacidos is without coma E10.10 [facility] [address] [place] [address] February, Type 2 diabetes mellitus wit hout complications E11.9 [facility] [address] [place] [address] February, Morbid obesity E66.01 ; Micr oalbuminuria R80.9 ; alf current use of insulin Z79.4 and Type 1 diabetes mellitus with ketoacidosis without coma E10.10 [facility] [address] [place] [address] February, Type 1 diabetes mellitus wit h ketoacidosis without coma E10.10 [facility] [address] [place] [address] February, Type 1 diabetes mellitus wit h ketoacidosis without coma E10.10 and Morbid obesity E66.01 [facility] [address] [place] [address] February, [facility] [address] [place] [address] February, [facility] [place] [address] [place] [address] February, Thyrotoxicosis, unspecified without thyrotoxic crisis or storm E05.90 ; Vitamin D deficiency, unspecified E55.9 ; Essential (primary) hypertension I10 and Type 1 diabetes mellitus with ketoacidosis without coma E10.10 [facility] [address] [place] [address] Jan, Thyrotoxicosis, unspecified without thyrotoxic crisis or storm E05.90 ; Vitamin D deficiency, unspecified E55.9 ; Essential (primary) hypertension I10 and Type 1 diabetes mellitus with ketoacidosis without coma E10.10 [facility] [address] [place] [address] Jan, [facility] [address] [place] [address] Dec, [facility] [address] [place] [address] Dec, [facility] [address] [place] [address] Dec, [facility] [address] [place] [address] Dec, [facility] [address] [place] [address] Dec, [facility] [address] [place] [address] Dec, [facility] [address] [place] [address] Nov, [facility] [address] [id number] [place] [address] Sep, [facility] [address] [id number] [place] [address] Sep, [facility] [address] [id number] [place] [address] Sep, [facility] [address] [facility] [id number] [place] [address] Nov, [facility] [address] [facility] [id number] [place] [address] Aug, IMMUNIZATIONS No Known Immunizations SOCIAL HISTORY Never Assessed REASON FOR VISIT med refill PLAN OF CARE VITAL SIGNS MEDICATIONS Medication Instructions Dosage Frequency Start Date End Date Duration S tatus NovoLog 100 UNIT/ML Subcutaneous after meals as directed Dec, 30 days Active RESULTS No Results PROCEDURES No Known procedures INSTRUCTIONS MEDICATIONS ADMINISTERED No Known Medications MEDICAL (GENERAL) HISTORY Type Description Date Medical History Hypokalemia Medical History Anxiety Medical History Depressive disorder, not elsewhere class ified Medical History Morbid obesity with BMI of 50.0-59.9, ad ult Medical History Esophageal reflux Medical History Hyperthyroidism Medical History Elevated pulse rate Medical History Microalbuminuria Medical History Primary osteoarthritis of left knee Medical History Malignant neoplasm of breast (female), u nspecified site Medical History Chronic right hip pain Medical History Multinodular thyroid Medical History Vitamin D deficiency, unspecified Medical History Thyrotoxicosis, unspecified without thyr otoxic crisis or storm Medical History Type 1 diabetes mellitus with ketoacidos is and without coma Surgical History breast biopsy Surgical History breast reconstruction Surgical History thyroidectomy, complete Surgical History cholecystectomy Surgical History partial hysterectomy Surgical History ankle surgery, fx, right Hospitalization History surgeries
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
--- OUTSIDE RECORDS SUMMARY | 2019-12-29 12:22 | XMS REPORT ---
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 [facility] (28399) Urea nitrogen 16 mg/dL (N) 7 - 20 mg/dL [facility] [Mass/Vol] [facility] (04003) Urea 16 mg/mg (N) 6 - 22 mg/mg [facility] nitrogen/Creatin [facility] [Mass ratio] [facility] (67758) WBC (Bld) 7.2 10*3/uL (N) 3.5 - 10.5 [facility] [#/Vol] 10*3/uL [facility] (86758) Vital Signs The data below is from unstructured sources Vital Reading Result Col lection Date/Time Interventions No Information Plan of Treatment Normalized Care Care Detail Care Activity Date Care Provider F acility Activity Patient Education Knee Sprain (DC) no information D-ÉG Thermoset [id number] [place] [address] [facility] ([id number]) [facility] BERNADINE SELF [phone] [facility] procedure MAIN [facility] (60118) Patient referral no information no information D-ÉG Thermoset [phone] [place] [address] [facility] (70335) Goals Patient Goal Desired Goal no information no information Social History Normalized Code Original Code Date Value Tobacco smoking status Tobacco smoking status no information Never smoked tobacco NHIS NHIS (finding) no information no information 08-30-2019 Denies Use no information no information 08-30-2019 No no information no information 08-30-2019 Never a Smoker Sex Assigned At Sex Assigned At no information F emale Functional Status The data below is from unstructured sourcesNo Functional Status information available Mental Status The data below is from unstructured sourcesNo Mental Status Information Available Encounters Encounter Normalized Encounter Encounter Diagnosis Care Provi samaria Organization Date Type 09-05-[facility] (primary) BERNADINE SELF (no [facility] hypertension phone) (no phone) 08-03-2019 [facility] Essential (primary) BERNADINE SELF (no [facility] hypertension phone) (no phone) 07-24-2019 [facility] Pain in left ankle and NANCY YON (no [facility] joints of left foot phone) (no phone) 07-17-2019 [facility] no information SEDRICK GAN ( no phone) [facility] (no phone) [facility] SED[facility]ICK GAN ( no phone) [facility]) 06-28-2019 [facility] no information SEDRICK GAN ( no phone) [facility]no phone) 06-20-2019 [facility] Type 1 diabetes BERNADINE SELF (no [facility] mellitus with phone) (no phone) ketoacidosis without coma 05-07-2019 [facility] Type 1 diabetes SEDRICK GAN (no phone) [facility] mellitus with (no phone) ketoacidosis without coma 02-23-2019 [facility] Type 1 diabetes BERNADINE SELF ([facility] mellitus with phone) (no phone) ketoacidosis without coma 10-02-2018 [facility] no information Doctor Migrati on (no [facility] phone) (no phone) 12-10-2017 [facility] no information Doctor Migrati on (no [facility] phone) (no phone) 09-17-2015 [facility] no information Doctor Migrati on (no [facility] phone) (no phone) 06-15-2019 Consultation for Type 1 diabetes BERNADINE SELF (no [facility] laboratory medicine mellitus with phone) (no phone) ketoacidosis without coma 03-05-2019 Consultation for Type 2 diabetes LOUIE LOVEBURN (n o [facility] laboratory medicine mellitus without phone) (no phon e) complications 02-21-2019 Consultation for Thyrotoxicosis, BERNADINE SELF ([facility] laboratory medicine unspecified without phone) (no p melissa) thyrotoxic crisis or storm 08-30-2019 Emergency department no information (no phone) [facility] - patient visit Hospital (no phone) 08-30-2019 08-30-2019 Emergency department no information no name (no michele ne) no organization name - patient visit (no phone) 08-30-2019 11-26-2019 Patient encounter no information SEDRICK GAN (no ph one) [facility] procedure (no phone) 09-17-2019 Patient encounter no information no name (no phone) no organization name procedure (no phone) 09-05-2019 Patient encounter no information no name (no phone) no organization name procedure (no phone) 08-30-2019 Patient encounter no information no name (no phone) no organization name procedure (no phone) 08-03-2019 Patient encounter no information no name (no phone) no organization name procedure (no phone) 06-20-2019 Patient encounter no information no name (no phone) no organization name procedure (no phone) 06-15-2019 Patient encounter no information no name (no phone) no organization name procedure (no phone) 06-15-2019 Patient encounter no information no name (no phone) no organization name procedure (no phone) 05-17-2019 Patient encounter no information no name (no phone) no organization name procedure (no phone) 05-17-2019 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) LOUIE SPICER RN (no [facility] procedure use of insulin phone) (no phone) 05-16-2019 Patient encounter Type 1 diabetes SEDRICK ELVIA (no p melissa) [facility] procedure mellitus with (no phone) ketoacidosis without coma 03-05-2019 Patient encounter no information no name (no phone) no organization name procedure (no phone) 02-28-2019 Patient encounter no information no name (no phone) no organization name procedure (no phone) 02-28-2019 Patient encounter Morbid (severe) LOUIE RANDOLPH ( no [facility] procedure obesity due to excess phone) (no phon e) calories 02-23-2019 Patient encounter no information no name (no phone) no organization name procedure (no phone) 02-21-2019 Patient encounter no information no name (no phone) no organization name procedure (no phone) 08-07-2014 Patient encounter no information no name (no phone) no organization name procedure (no phone) 01-08-2008 Patient encounter no information no name (no phone) no organization name procedure (no phone) 11-19-2019 Telephone encounter no information BERNADINE SELF (no [facility] phone) (no phone) 11-12-2019 Telephone encounter no information LOUIE RANDOLPH (no [facility] phone) (no phone) 11-05-2019 Telephone encounter no information BERNADINE SELF (no [facility] - phone) (no phone) 11-05-2019 - 11-05-2019 10-22-2019 Telephone encounter no information BERNADINE SELF (no [facility] phone) (no phone) 10-02-2019 Telephone encounter no information BERNADINE SELF (no [facility] phone) (no phone) 10-01-2019 Telephone encounter no information NANCY MARVIN ( no [facility] phone) (no phone) 09-24-2019 Telephone encounter Low back pain BERNADINE SELF (no [facility] phone) (no phone) 09-18-2019 Telephone encounter Radiculopathy, site BERNADINE ALLEN F (no [facility] - unspecified phone) (no phone) 09-18-2019 - 09-18-2019 09-12-2019 Telephone encounter no information BERNADINE SELF (no [facility] phone) (no phone) 09-10-2019 Telephone encounter no information BERNADINE SELF (no [facility] phone) (no phone) 08-31-2019 Telephone encounter no information BERNADINE SELF (no [facility] phone) (no phone) 08-30-2019 Telephone encounter no information BERNADINE SELF (no [facility] phone) (no phone) 08-29-2019 Telephone encounter no information LOUIE RANDOLPH (no [facility] phone) (no phone) 08-28-2019 Telephone encounter no information BERNADINE SELF (no [facility] phone) IN CARE (no phone) 08-27-2019 Telephone encounter no information BERNADINE SELF (no [facility] - phone) (no phone) 08-27-2019 - 08-27-2019 08-22-2019 Telephone encounter no information BERNADINE SELF (no [facility] phone) (no phone) 08-13-2019 Telephone encounter no information BERNADINE SELF (no [facility] phone) (no phone) 08-07-2019 Telephone encounter no information BERNADINE SELF (no [facility] phone) (no phone) 08-06-2019 Telephone encounter no information BERNADINE SELF (no [facility] phone) (no phone) 07-30-2019 Telephone encounter no information BERNADINE SELF (no [facility] phone) (no phone) 07-24-2019 Telephone encounter no information LOUIE AGUSTÍN (no [facility] phone) (no phone) 07-11-2019 Telephone encounter no information LOUIE AGUSTÍN (no [facility] phone) (no phone) 07-05-2019 Telephone encounter no information BERNADINE SELF (no [facility] phone) (no phone) 07-03-2019 Telephone encounter no information BERNADINE SELF (no [facility] phone) (no phone) 06-26-2019 Telephone encounter no information BERNADINE SELF (no [facility] phone) (no phone) 06-14-2019 Telephone encounter no information BERNADINE SELF (no [facility] phone) (no phone) 06-05-2019 Telephone encounter no information BERNADINE SELF (no [facility] phone) (no phone) 05-29-2019 Telephone encounter no information BERNADINE SELF (no [facility] phone) (no phone) 05-22-2019 Telephone encounter no information LOUIE AGUSTÍN (no [facility] phone) (no phone) 05-17-2019 Telephone encounter no information LOUIE AGUSTÍN (no [facility] phone) (no phone) 05-16-2019 Telephone encounter no information BERNADINE SELF (no [facility] phone) (no phone) 05-10-2019 Telephone encounter no information LOUIE AGUSTÍN (no [facility] phone) (no phone) 05-09-2019 Telephone encounter no information BERNADINE SELF (no [facility] phone) (no phone) 05-07-2019 Telephone encounter Type 1 diabetes BERNADINE SELF (n o [facility] - mellitus with phone) (no phone) 05-07-2019 ketoacidosis without - coma 05-07-2019 05-03-2019 Telephone encounter no information BERNADINE SELF (no [facility] phone) (no phone) 05-02-2019 Telephone encounter no information LOUIE AGUSTÍN (no [facility] (no phone) phone) 04-11-2019 Telephone encounter no information LOUIE AGUSTÍN (no [facility] phone) (no phone) 04-10-2019 Telephone encounter no information LUOIE AGUSTÍN (no [facility] (no phone) phone) 04-05-2019 Telephone encounter no information BERNADINE SELF (no [facility] phone) (no phone) 03-21-2019 Telephone encounter no information BERNADINE SELF (no [facility] phone) (no phone) 03-20-2019 Telephone encounter no information LOUIE RANDOLPH (no [facility] phone) (no phone) 03-05-2019 Telephone encounter Type 2 diabetes BERNADINE SELF (n o [facility] - mellitus without phone) LOUIE AGUSTÍN (no p melissa) 03-05-2019 complications (no phone) - 03-05-2019 02-23-2019 Telephone encounter Type 1 diabetes BERNADINE SELF (n o [facility] mellitus with phone) (no phone) ketoacidosis without coma 02-22-2019 Telephone encounter no information BERNADINE SELF (no [facility] - phone) (no phone) 02-22-2019 - 02-22-2019 02-19-2019 Telephone encounter Thyrotoxicosis, BERNADINE SELF (n o [facility] unspecified without phone) (no phone) thyrotoxic crisis or storm 01-23-2019 Telephone encounter no information BERNADINE SELF (no [facility] phone) (no phone) 01-18-2019 Telephone encounter no information BERNADINE SELF (no [facility] phone) (no phone) 01-10-2019 Telephone encounter no information BERNADINE SELF (no [facility] phone) (no phone) 01-02-2019 Telephone encounter no information BERNADINE SELF (no [facility] phone) (no phone) 01-01-2019 Telephone encounter no information BERNADINE SELF (no [facility] phone) (no phone) 12-25-2018 Telephone encounter no information BERNADINE SELF (no [facility] - phone) (no phone) 12-25-2018 - 12-25-2018 12-13-2018 Telephone encounter no information BERNADINE SELF (no [facility] phone) (no phone) 10-22-2018 Telephone encounter no information Doctor Migration (no [facility] phone) (no phone) 10-21-2018 Telephone encounter no information Doctor Migration (no [facility] phone) (no phone) Medical Equipment The data below is from unstructured sourcesNo Medical Equipment Information available Payers Normalized Payer Value [employer] no information ([id number]) Medicare no information ([id number]) Evaluation note Note Type Note Facility Evaluation No Assessments Information Available A scension note [facility] ([id number]) History general Narrative - Reported Note Type Note Facility History general Narrative - Reported Type Medical Hypokalemia History Medical Anxiety History Medical Depressive disorder, not el sewhere classified History Medical Morbid obesity with BMI of 50.0-59.9, adult History Medical Esophageal reflux History Medical Hyperthyroidism History Medical Elevated pulse rate History Medical Microalbuminuria History Medical Primary osteoarthritis of l eft knee History Medical Malignant neoplasm of breas t (female), unspecified site History Medical Chronic right hip pain History Medical Multinodular thyroid History Medical Vitamin D deficiency, unspe cified History Medical Thyrotoxicosis, unspecified without thyrotoxic crisis or storm History Medical Type 1 diabetes mellitus wi th ketoacidosis and without coma History Surgical breast biopsy History Surgical breast reconstruction History Surgical thyroidectomy, complete History Surgical cholecystectomy History Surgical partial hysterectomy History Surgical ankle surgery, fx, right History Hospitaliz surgeries ation History [facility] ([id number]) Advance Directives Advance Directive Response Recorded Date/Time Advance Directives No No [email or web address] 4:45pm Health Care Power of Assistant Baseball Coach No August 30, 2019 4:45pm Organ Donor No August 30, 2019 4:45pm Resuscitation Status Full Code August 30, 2019 4:45pm Chief Complaint and Reason for Visit Chief Complaint Lower Extremity Reason for Visit [id number] Additional Source Comments This clinical document has been generated using [employer] software that has been certified by the Office of the National Coordinator for Health Information Technology (ONC 15.99.04.3023.Diam.31.00.0.254108) and the National Committee for [employer] (NCQA, as an eMeasure certified technology). FOR RECORDS PERTAINING TO PATIENTS WHO ARE OR HAVE BEEN ENROLLED IN A CHEMICAL D EPENDENCY/SUBSTANCE ABUSE PROGRAM, SOME INFORMATION MAY BE OMITTED. This clinica l summary was aggregated from multiple sources. Caution should be exercised in using it in the provision of clinical care. This summary normalizes information from multiple sources, and as a consequence, information in this document may ma terially change the coding, format and clinical context of patient data. In lorraine tion, data may be omitted in some cases. CLINICAL DECISIONS SHOULD BE BASED ON T HE PRIMARY CLINICAL RECORDS. [employer] provides no warranty or guara ntee of the accuracy or completeness of information in this document.The followi ng information is based on time limited clinical information UNRECOGNIZED CONTENT PROVIDED BELOW FOR UNRECOGNIZED SECTION REASON FOR VISIT med refill
== END 2019-12-26 14:45 | disposition home or self-care (01) ==
LOC: EDUNIT# 14:26 → ER FS 14:27 → 4TH 17:54
PROVIDERS: ADMIT Family Medicine; ATTEND Family Medicine
DX: E11.65 Type 2 diabetes mellitus with hyperglycemia (principal); M54.2 Cervicalgia; M19.90 Unspecified osteoarthritis, unspecified site; N17.9 Acute kidney failure, unspecified; S16.1XXA Strain of muscle, fascia and tendon at neck level, initial encounter; S09.90XA Unspecified injury of head, initial encounter; S49.92XA Unspecified injury of left shoulder and upper arm, initial encounter; E86.0 Dehydration; E78.5 Hyperlipidemia, unspecified; R29.6 Repeated falls; Z88.5 Allergy status to narcotic agent; Z88.2 Allergy status to sulfonamides; Z91.048 Other nonmedicinal substance allergy status; Z79.899 Other long term (current) drug therapy
CPT/HCPCS: 36415; 36600; 70450; 72070; 72125; 73030; 80048; 80053; 81000; 82010; 82805; 82947; 82962; 84443; 85025; 85027; G0378

== ENCOUNTER → 2020-01-04 | Outpatient (CLI) | payer BC, MEDICARE ==
[~2020-01-04] MED LIST changes: +ATOR20TA66 PO; +ATOR40TA70 PO; +GABA-488 PO; +INSU100V16 SC; +LEVO112T55 PO; +NAPR-915 PO; +OLAN5TAB25 PO; +VNL75T PO; +ZOLP10TA PO
--- NOTE | 2020-01-04 13:25 | Diagnostic Imaging Report ---
EXAMINATION: Magnetic resonance imaging of the left shoulder without contrast. DATE: January 04, 2020. COMPARISON: Left shoulder radiographs December 24, 2019. HISTORY: 69-year-old female, fall. Left shoulder pain. TECHNIQUE: Magnetic Resonance Imaging sequences were performed of the shoulder without contrast. FINDINGS: ROTATOR CUFF, LIGAMENTS, TENDONS, AND MUSCLES: There are full thickness, full width tears of the supraspinatus and infraspinatus tendons with tendon retraction near the level of the glenoid. The subscapularis and teres minor tendons are intact. There is diffuse moderate fatty atrophy of the rotator cuff musculature. There is low-level edema in the supraspinatus and infraspinatus muscles. There is mild generalized fatty muscle atrophy as well. LONG HEAD OF BICEPS: The biceps labral attachment and long head of the biceps tendon are intact. The long head of the biceps tendon is normally positioned within the bicipital groove. GLENOHUMERAL JOINT: The humeral head is superiorly subluxed and nearly directly abuts the undersurface of the acromion. The humeral head is mildly posteriorly subluxed. The labrum is grossly intact. There is no identified paralabral cyst. The articular cartilage is grossly intact. There is a small glenohumeral joint effusion. ACROMIOCLAVICULAR JOINT: The acromioclavicular joint is normally aligned. The coracoclavicular and coracoacromial ligaments are intact. There are no degenerative changes of the acromioclavicular joint. BONE: There is no os acromiale. There is no acute fracture, bone contusion, or evidence of osteonecrosis. BURSAE AND SOFT TISSUES: There is fluid in the subacromial/subdeltoid bursa, consistent with the full-thickness rotator cuff tendon tears, bursitis, and/or recent injection. IMPRESSION: 1. Full thickness, full width tears of the supraspinatus and infraspinatus tendons with tendon retraction near the level of the glenoid. Moderate generalized fatty atrophy of the rotator cuff musculature. Low level edema in the supraspinatus and infraspinatus muscles may reflect low-grade muscle strains or early denervation related signal changes. 2. Intact acromioclavicular joint. 3. Humeral head is superiorly subluxed. No discretely identified labral tear or cartilage defect. Small glenohumeral joint effusion. 4. No acute fracture, bone contusion, or evidence of osteonecrosis. 5. Fluid in the subacromial/subdeltoid bursa, consistent with the full-thickness rotator cuff tendon tears, bursitis, and/or recent injection. Dictated by: Dictated on workstation # [id number]
== END ==
LOC: RAD 12:03
PROVIDERS: ATTEND Family Medicine
DX: S46.012A Strain of muscle(s) and tendon(s) of the rotator cuff of left shoulder, initial encounter (principal); S43.002A Unspecified subluxation of left shoulder joint, initial encounter; W19.XXXA Unspecified fall, initial encounter
CPT/HCPCS: 73221

== ENCOUNTER 2020-06-19 05:31 | Outpatient (CLI) | payer MEDICARE, OTHER ==
[~2020-06-19] VITALS: Ht 160 cm; Wt 118.2 kg
[2020-06-19] MEDS ORDERED: GABA300C PO ×2 (10:13)
[2020-06-19] MEDS ORDERED: LOSA1TAB26 PO (10:14)
[2020-06-19] MEDS ORDERED: DULA1.5P2 SQ (10:14)
== END 2020-06-19 10:18 | disposition home or self-care (01) ==
LOC: PREOP 05:31
PROVIDERS: ATTEND Specialist
DX: Z01.818 Encounter for other preprocedural examination (principal)

== ENCOUNTER 2020-06-20 08:34 | Day surgery (SDC) | payer MEDICARE, OTHER ==
[~2020-06-20] VITALS: Ht 160 cm; Wt 118.6 kg
[~2020-06-20 08:34] MED LIST changes: +DULA1.5P2 SQ; +GABA300C PO; +LOSA1TAB26 PO
[2020-06-20] MEDS ORDERED: POVIDONE (BETADINE) OPHTH SOLN 5% 30 ML OP ONE (08:45)
[2020-06-20] MEDS ORDERED: MOXIFLOXACIN OPHTH SOLN 5 MG/ML 0.3 ML SYRINGE OP ONE (08:45)
[2020-06-20] MEDS ORDERED: LIDOCAINE PF 1% 2 ML VIAL IR PRN (08:45)
[2020-06-20] MEDS ORDERED: TIMOLOL MALEATE 0.5% 5 ML (TIMOPTIC) BTL OU PRN (08:45)
[2020-06-20 08:55] VITALS: BP 138/65
[2020-06-20] MEDS ORDERED: inSUlin (REGULAR) HUMAN 1 UNIT/0.01 ML (CHARGE PER UNIT) IV ONE (09:30)
[2020-06-20] MEDS: TETRACAINE 0.5% OPHTH SOLN 4 ML BTL (SINGLE DOSE ONLY) OU PRN ×4 (09:48→10:06)
[2020-06-20 09:55] VITALS: BP 138/65
[2020-06-20] MEDS: PHENYLEPHRINE 10% OPHTH (NEO-SYN) 5 ML BTL OU SCH ×3 (09:56→10:06)
[2020-06-20] MEDS: CYCLOPENTOLATE 1% (CYCLOGYL) 2 ML DROPS OP SCH ×3 (09:56→10:06)
[2020-06-20] MEDS ORDERED: acetaZOLAMIDE ER 500 MG CAP (DIAMOX SEQUELS) PO ONE (10:00)
--- NOTE | 2020-06-20 10:15 | Ophthalmologist Pre-Op Note ---
Pre-Operative Progress Note H&P Reviewed The H&P was reviewed, patient examined and no changes noted. Date H&P Reviewed: Jun 20, 2020 Time H&P Reviewed: 10:15 Pre-Op Dx Cataract, Right Eye JACLYN SAMUEL MD Jun 20, 2020 10:15
[2020-06-20] MEDS ORDERED: MIDAZOLAM 2 MG/2 ML (VERSED) VIAL ONE (10:17)
--- NOTE | 2020-06-20 10:41 | Ophthalmology Operative Report ---
Cataract removal/placement IOL PREOPERATIVE DIAGNOSIS: Cataract Right Eye POSTOPERATIVE DIAGNOSIS: Cataract Right Eye PROCEDURE: Cataract removal and placement of posterior chamber implant, right eye SURGEON: Howie Samuel ANESTHESIA: Topical with sedation COMPLICATIONS: None ESTIMATED BLOOD LOSS: Minimal DESCRIPTION OF PROCEDURE: After proper informed consent was obtained, the patient, a 69 female, was taken to the Operating Room and the right eye was anesthetized with tetracaine. The right eye was then prepped and draped in the usual manner. A wire lid speculum was placed. A paracentesis was made at the left hand position. Preservative free lidocaine was injected into the anterior chamber followed by viscoelastic. A clear corneal incision was made in the temporal position. A capsulorrhexis was preformed and the central nuclear and cortical material were removed. The posterior capsule was polished and Jonathan 21.5 AU00T0 IOL was placed into the capsular bag. The residual viscoelastic was aspirated and balanced saline solution was injected into the anterior chamber. Moxifloxacin was injected into the anterior chamber. The wound was checked and found to be water tight. The patient tolerated the procedure well without complications. HOWIE SAMUEL MD Jun 20, 2020 10:41
[2020-06-20 10:56] VITALS: BP 160/81
--- NOTE | 2020-06-20 14:28 | Anesthesia-General Post-Op ---
MAC Patient Condition Mental Status/LOC: Same as Preop Cardiovascular: Satisfactory Nausea/Vomiting: Absent Respiratory: Satisfactory Pain: Controlled Complications: Absent Post Op Complications Complications None Follow Up Care/Instructions Patient Instructions None needed. Anesthesiology Discharge Order Discharge Order Patient was seen this morning after the procedure and she was doing well, no complaints, stable vital signs, no apparent adverse anesthesia problems. MERLYN MACDONALD DO Jun 20, 2020 14:27
== END 2020-06-20 10:56 | disposition home or self-care (01) ==
LOC: SDC 08:34
PROVIDERS: ATTEND Specialist
DX: H25.11 Age-related nuclear cataract, right eye (principal); E11.36 Type 2 diabetes mellitus with diabetic cataract; M19.90 Unspecified osteoarthritis, unspecified site; M06.9 Rheumatoid arthritis, unspecified; Z79.899 Other long term (current) drug therapy; Z91.048 Other nonmedicinal substance allergy status; Z88.0 Allergy status to penicillin; Z88.5 Allergy status to narcotic agent; Z85.3 Personal history of malignant neoplasm of breast; Z80.3 Family history of malignant neoplasm of breast
CPT/HCPCS: 66984; 82962; V2632

== ENCOUNTER 2020-06-25 05:32 | Outpatient (CLI) | payer MEDICARE, OTHER | END 2020-06-25 13:25 | LOC: PREOP 05:32 | PROVIDERS: ATTEND Specialist | DX: Z01.818 Encounter for other preprocedural examination (principal) ==

== ENCOUNTER 2020-06-27 10:45 | Day surgery (SDC) | payer MEDICARE, OTHER ==
[~2020-06-27] VITALS: Ht 152.4 cm; Wt 118.0 kg
[2020-06-27 10:45] VITALS: BP 140/89
[2020-06-27] MEDS ORDERED: POVIDONE (BETADINE) OPHTH SOLN 5% 30 ML OP ONE (11:00)
[2020-06-27] MEDS ORDERED: LIDOCAINE PF 1% 2 ML VIAL IR PRN (11:00)
[2020-06-27] MEDS ORDERED: TIMOLOL MALEATE 0.5% 5 ML (TIMOPTIC) BTL OU PRN (11:00)
[2020-06-27] MEDS ORDERED: MOXIFLOXACIN OPHTH SOLN 5 MG/ML 0.3 ML SYRINGE OP ONE (11:00)
[2020-06-27] MEDS: TETRACAINE 0.5% OPHTH SOLN 4 ML BTL (SINGLE DOSE ONLY) OU PRN ×4 (11:03→11:35)
[2020-06-27] MEDS: PHENYLEPHRINE 10% OPHTH (NEO-SYN) 5 ML BTL OU SCH ×3 (11:18→11:35)
[2020-06-27] MEDS: CYCLOPENTOLATE 1% (CYCLOGYL) 2 ML DROPS OP SCH ×3 (11:18→11:35)
--- NOTE | 2020-06-27 11:50 | Ophthalmologist Pre-Op Note ---
Pre-Operative Progress Note H&P Reviewed The H&P was reviewed, patient examined and no changes noted. Date H&P Reviewed: Jun 27, 2020 Time H&P Reviewed: 11:49 Pre-Op Dx Cataract, Left Eye JACLYN SAMUEL MD Jun 27, 2020 11:50
[2020-06-27] MEDS ORDERED: acetaZOLAMIDE ER 500 MG CAP (DIAMOX SEQUELS) PO ONE (12:00)
[2020-06-27] MEDS ORDERED: MIDAZOLAM 2 MG/2 ML (VERSED) VIAL ONE (12:10)
--- NOTE | 2020-06-27 12:15 | Ophthalmology Operative Report ---
Cataract removal/placement IOL PREOPERATIVE DIAGNOSIS: Cataract Left Eye POSTOPERATIVE DIAGNOSIS: Cataract Left Eye PROCEDURE: Cataract removal and placement of posterior chamber implant, left eye SURGEON: Howie Samuel ANESTHESIA: Topical with sedation COMPLICATIONS: None ESTIMATED BLOOD LOSS: Minimal DESCRIPTION OF PROCEDURE: After proper informed consent was obtained, the patient, a 69 female, was taken to the Operating Room and the left eye was anesthetized with tetracaine. The left eye was then prepped and draped in the usual manner. A wire lid speculum was placed. A paracentesis was made at the left hand position. Preservative free lidocaine was injected into the anterior chamber followed by viscoelastic. A clear corneal incision was made in the temporal position. A capsulorrhexis was preformed and the central nuclear and cortical material were removed. The posterior capsule was polished and an Jonathan 21.0 AU00T0 was placed into the capsular bag. The residual viscoelastic was aspirated and balanced saline solution was injected into the anterior chamber. Moxifloxacin was injected into the anterior chamber. The wound was checked and found to be water tight. The patient tolerated the procedure well without complications. HOWIE SAMUEL MD Jun 27, 2020 12:15
[2020-06-27 12:35] VITALS: BP 178/98
--- NOTE | 2020-06-27 13:36 | Anesthesia-General Post-Op ---
MAC Patient Condition Mental Status/LOC: Same as Preop Cardiovascular: Satisfactory Nausea/Vomiting: Absent Respiratory: Satisfactory Pain: Controlled Complications: Absent Post Op Complications Complications None Follow Up Care/Instructions Patient Instructions None needed. Anesthesiology Discharge Order Discharge Order Patient is doing well, no complaints, stable vital signs, no apparent adverse anesthesia problems. No complications reported per nursing. GEORGINA DAVIDSON CRNA Jun 27, 2020 13:36
== END 2020-06-27 12:35 | disposition home or self-care (01) ==
LOC: SDC 10:45
PROVIDERS: ATTEND Specialist
DX: E11.36 Type 2 diabetes mellitus with diabetic cataract (principal); H25.12 Age-related nuclear cataract, left eye; E78.5 Hyperlipidemia, unspecified; M06.9 Rheumatoid arthritis, unspecified; K21.9 Gastro-esophageal reflux disease without esophagitis; E66.01 Morbid (severe) obesity due to excess calories; Z79.84 Long term (current) use of oral hypoglycemic drugs; Z79.899 Other long term (current) drug therapy; Z79.890 Hormone replacement therapy; Z88.0 Allergy status to penicillin; Z88.5 Allergy status to narcotic agent; Z91.048 Other nonmedicinal substance allergy status; Z68.43 Body mass index [BMI] 50.0-59.9, adult; Z85.3 Personal history of malignant neoplasm of breast
CPT/HCPCS: 66984; 82962; V2632

== ENCOUNTER → 2021-04-01 | Outpatient (CLI) | payer MEDICARE ==
--- NOTE | 2021-04-01 11:27 | Diagnostic Imaging Report ---
EXAMINATION: AP and lateral chest at 10:38 a.m. INDICATION: Shortness of breath. The heart is enlarged and both the heart and the central pulmonary vascularity do seem more prominent than on the thoracic spine exam of 12/24/2019. This appearance suggests that there is an element of mild pulmonary congestion present. The lateral view also shows that there is a small amount of fluid in each lung base posteriorly. There is no consolidated pneumonia identified. The mediastinum is not widened. The osseous structures are intact. Surgical clips are again seen overlying the left axilla. IMPRESSION: There is cardiomegaly and mild pulmonary congestion and small bilateral pleural effusions. A follow-up exam should be considered for further evaluation. Dictated by: Dictated on workstation # [id number]
== END ==
LOC: RAD FS 10:14
PROVIDERS: ATTEND Family Medicine
DX: I51.7 Cardiomegaly (principal); J90 Pleural effusion, not elsewhere classified
CPT/HCPCS: 71046

== ENCOUNTER → 2021-04-15 | Outpatient (CLI) | payer MEDICARE | PROVIDERS: ATTEND Family Medicine | DX: I08.3 Combined rheumatic disorders of mitral, aortic and tricuspid valves (principal); I50.9 Heart failure, unspecified; E53.8 Deficiency of other specified B group vitamins | CPT/HCPCS: 93306 ==

== ENCOUNTER 2021-05-28 14:03 | Outpatient (RCR) | payer MEDICARE ==
[~2021-05-28 14:03] MED LIST changes: -OLAN5TAB25 PO; +OLN5T PO
== END 2021-07-21 | disposition home or self-care (01) ==
PROVIDERS: ATTEND Family Medicine
DX: I89.0 Lymphedema, not elsewhere classified (principal); E11.9 Type 2 diabetes mellitus without complications; R01.1 Cardiac murmur, unspecified; R32 Unspecified urinary incontinence

== ENCOUNTER 2021-09-14 10:44 | Inpatient (IN) | payer MEDICARE ==
[~2021-09-14] VITALS: Ht 160 cm; Wt 116.6 kg
[2021-09-14] MEDS ORDERED: hydrALAZINE (APESOLINE) 20 MG/ML VIAL IV STA (11:58)
[2021-09-14] MEDS ORDERED: ACETAMINOPHEN 325 MG TABLET PO ONE (12:00)
[2021-09-14] MEDS ORDERED: ONDANSETRON 4 MG/2 ML (SDV) Z0FRAN IV ONE (12:00)
[2021-09-14] MEDS ORDERED: NS IV 1000 ML 1,000 ML IV SCH (12:00)
--- NOTE | 2021-09-14 12:00 | ED General ---
General Chief Complaint: COVID19 Suspect/Confirmed Stated Complaint: COUGH; SOB Source of Information: Patient History of Present Illness Date Seen by Provider: Sep 14, 2021 Time Seen by Provider: 11:31 Initial Comments 70 yo female presenting with complaints of cough, shortness of breath, n/v/d since last night. Subjective fever and chills. She was having pain in her upper back with coughing this morning. She was feeling generalized weakness. She has not taken any of her diabetes medicines or blood pressure medicines this morning. She had family bring her to the emergency department since she was not feeling well. She has no abdominal pain and denies any pain with urination. She denies any ill contacts. Timing/Duration: 12 Hours Severity: Moderate Associated Systoms: No Chest Pain; Cough; No Diaphoresis; Fever/Chills (subjective); No Headaches, No Loss of Appetite; Malaise, Nausea/Vomiting; No Rash, No Seizure; Shortness of Air; No Syncope; Weakness Allergies and Home Medications Allergies Coded Allergies: adhesive tape (Unverified Allergy, Unknown, 12/24/19) codeine (Verified Allergy, Unknown, 12/24/19) morphine (Verified Allergy, Unknown, 12/24/19) penicillin G (Verified Allergy, Unknown, 12/24/19) Patient Home Medication List Home Medication List Reviewed: Yes Atorvastatin Calcium (Atorvastatin Calcium) 40 Mg Tablet, 40 MG PO DAILY, (Reported) Entered as Reported by: BASHIR SALEH on 12/25/19 1008 Dulaglutide (Trulicity) 1.5 Mg/0.5 Ml Pen.injctr, 1.5 MG SQ DAILY, (Reported) Entered as Reported by: MARELY BROWN on 06/19/20 1014 Gabapentin (Neurontin) 300 Mg Capsule, 300 MG PO BID, (Reported) Entered as Reported by: MARELY BROWN on 06/19/20 1013 Gabapentin (Neurontin) 300 Mg Capsule, 600 MG PO DAILY@1300, (Reported) Entered as Reported by: MARELY BROWN on 06/19/20 1013 Insulin Aspart (Novolog) 100 Unit/1 Ml Susp, 27 UNITS SC TIDAC, (Reported) Entered as Reported by: BASHIR SALEH on 12/25/19 0936 Levothyroxine Sodium (Levothyroxine Sodium) 112 Mcg Tablet, 112 MCG PO DAILY, (Reported) Entered as Reported by: BASHIR SALEH on 12/25/19913 Losartan/Hydrochlorothiazide (Losartan-Hctz 100-12.5 mg Tab) 1 Each Tablet, 1 EACH PO DAILY, (Reported) Entered as Reported by: MARELY BROWN on 06/19/20 1014 Naproxen (Naproxen) 500 Mg Tablet, 500 MG PO BID PRN for PAIN-MILD (1-4), (Reported) Entered as Reported by: BASHIR SALEH on 12/25/19913 Olanzapine (Olanzapine) 5 Mg Tablet, 5 MG PO HS, (Reported) Entered as Reported by: BASHIR SALEH on 12/25/19913 Venlafaxine HCl (Venlafaxine HCl) 75 Mg Tab, 75 MG PO TIDWM, (Reported) Entered as Reported by: BASHIR SALEH on 12/25/19913 Review of Systems Review of Systems Constitutional: chills, fever (subjective) EENTM: no symptoms reported Respiratory: cough, short of breath; No stridor, No wheezing Cardiovascular: No chest pain; edema (chronic); No syncope Gastrointestinal: No abdominal pain; diarrhea (last night and this morning), nausea, vomiting (one episode last night) Genitourinary: decreased output; No dysuria Musculoskeletal: back pain (upper back pain with cough) Skin: No change in color Psychiatric/Neurological: Anxiety, Weakness (general) Past Jbvdtcj-Kxktgi-Giujhz Hx Patient Social History Tobacco Use?: No Seasonal Allergies Seasonal Allergies: No Past Medical History Surgeries: Yes (R Masectomy, R Augmentation, ) Gallbladder, Hysterectomy, Orthopedic, Thyroidectomy Respiratory: No Cardiac: No (Lymphedema) Neurological: No 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 oz. kg; 44.10 BMI Method: General Appearance: Mild Distress, Obese HEENT: No Moist Mucous Membranes (slightly dry mucous membranes), No Photophobia Neck: Full Range of Motion, Normal Inspection, Non Tender, Supple Respiratory: Chest Non Tender, No Respiratory Distress, Accessory Muscle Use, Decreased Breath Sounds Cardiovascular: Normal Peripheral Pulses, Tachycardia Gastrointestinal: Normal Bowel Sounds, No Pulsatile Mass, Non Tender, Soft Rectal: Deferred Extremity: Normal Capillary Refill, Non Tender, No Calf Tenderness, Pedal Edema (chronic 1+ non pitting edema) Neurologic/Psychiatric: Alert, Oriented x3, pharmacy operations manager II-XII Norm as Tested Skin: Normal Color, Warm/Dry Focused Exam Sepsis Stage: Sepsis Possible Source: Pulmonary Lactate Level 09/14/21 11:52: Lactic Acid Level 3.30*H 09/14/21 13:51: Lactic Acid Level 1.93 Time of Focused Exam: 13:20 Respiratory: Chest Non Tender, Lungs Clear, No Accessory Muscle Use, No Respiratory Distress, Decreased Breath Sounds Cardiovascular: Regular Rate, Rhythm, Normal Peripheral Pulses Capillary Refill: Less Than 3 Seconds Peripheral Pulses: 2+ Radial Pulses (R), 2+ Radial Pulses (L) Skin: normal color, warm/dry Lactic Acid Level Laboratory Tests Test 09/14/21 11:52 09/14/21 13:51 Lactic Acid Level 3.30 MMOL/L (0.50-2.00) *H 1.93 MMOL/L (0.50-2.00) Within 3hrs of presentation: Admin fluids, Admin ABX, Blood cultures prior to ABX's, Focus exam, Lactate level Progress/Results/Core Measures Suspected Sepsis SIRS Temperature: Pulse: Respiratory Rate: Laboratory Tests 09/14/21 11:52: White Blood Count 6.8 Blood Pressure / Mean: 09/14/21 11:52: Lactic Acid Level 3.30*H 09/14/21 13:51: Lactic Acid Level 1.93 Laboratory Tests 09/14/21 11:52: Creatinine 1.49H, INR Comment 1.0, Platelet Count 295, Total Bilirubin 0.5 Results/Orders Lab Results Laboratory Tests Test 09/14/21 11:38 09/14/21 11:44 09/14/21 11:52 09/14/21 13:51 Range/Units Urine Color YELLOW Urine Clarity CLEAR Urine pH 5.5 5-9 Urine Specific [place] 1.025 H 1.016-1.022 Urine Protein 2+ H NEGATIVE Urine Glucose (UA) 3+ H NEGATIVE Urine Ketones TRACE H NEGATIVE Urine Nitrite NEGATIVE NEGATIVE Urine Bilirubin 1+ H NEGATIVE Urine Urobilinogen 0.2 < = 1.0 MG/DL Urine Leukocyte Esterase NEGATIVE NEGATIVE Urine RBC (Auto) 2+ H NEGATIVE Urine RBC 10-25 H /HPF Urine WBC 0-2 /HPF Urine Squamous Epithelial Cells 10-25 H /HPF Urine Crystals PRESENT H /LPF Urine Amorphous Sediment FEW MEI URATES H /LPF Urine Bacteria FEW H /HPF Urine Casts PRESENT /LPF Urine Hyaline Casts 10-25 H /LPF Urine Coarse Granular Casts 10-25 H /LPF Urine Mucus SMALL H /LPF Urine Culture Indicated NO Influenza Type A Antigen NEGATIVE NEGATIVE Influenza Type B Antigen NEGATIVE NEGATIVE SARS-CoV-2 RNA (RT-PCR) Not Detected Not Detecte White Blood Count 6.8 4.3-11.0 10^3/uL Red Blood Count 4.56 3.80-5.11 10^6/uL Hemoglobin 13.6 11.5-16.0 g/dL Hematocrit 42 35-52 % Mean Corpuscular Volume 93 80-99 fL Mean Corpuscular Hemoglobin 30 25-34 pg Mean Corpuscular Hemoglobin Concent 32 32-36 g/dL Red Cell Distribution Width 13.5 10.0-14.5 % Platelet Count 295 130-400 10^3/uL Mean Platelet Volume 10.9 9.0-12.2 fL Neutrophils (%) (Auto) 82 H 42-75 % Lymphocytes (%) (Auto) 7 L 12-44 % Monocytes (%) (Auto) 9 0-12 % Eosinophils (%) (Auto) 1 0-10 % Basophils (%) (Auto) 1 0-10 % Neutrophils # (Auto) 5.6 1.8-7.8 X 10^3 Lymphocytes # (Auto) 0.5 L 1.0-4.0 X 10^3 Monocytes # (Auto) 0.6 0.0-1.0 X 10^3 Eosinophils # (Auto) 0.1 0.0-0.3 10^3/uL Basophils # (Auto) 0.1 0.0-0.1 10^3/uL Neutrophils % (Manual) 78 % Lymphocytes % (Manual) 5 % Monocytes % (Manual) 7 % Eosinophils % (Manual) 0 % Basophils % (Manual) 1 % Band Neutrophils 8 % Atypical Lymphocytes 1 % Platelet Estimate NORMAL Blood Morphology Comment NORMAL Prothrombin Time 13.2 12.2-14.7 SEC INR Comment 1.0 0.8-1.4 Activated Partial Thromboplast Time 25 24-35 SEC Sodium Level 134 L 135-145 MMOL/L Potassium Level 4.6 3.6-5.0 MMOL/L Chloride Level 92 L 98-107 MMOL/L Carbon Dioxide Level 24 21-32 MMOL/L Anion Gap 18 H 5-14 MMOL/L Blood Urea Nitrogen 28 H 7-18 MG/DL Creatinine 1.49 H 0.60-1.30 MG/DL Estimat Glomerular Filtration Rate 35 BUN/Creatinine Ratio 19 Glucose Level 569 *H 70-105 MG/DL Lactic Acid Level 3.30 *H 1.93 0.50-2.00 MMOL/L Calcium Level 9.4 8.5-10.1 MG/DL Corrected Calcium 9.8 8.5-10.1 MG/DL Magnesium Level 1.8 1.6-2.4 MG/DL Total Bilirubin 0.5 0.1-1.0 MG/DL Aspartate Amino Transf (AST/SGOT) 21 5-34 U/L Alanine Aminotransferase (ALT/SGPT) 14 0-55 U/L Alkaline Phosphatase 161 H 40-136 U/L Troponin I < 0.30 <0.30 NG/ML C-Reactive Protein 13.31 H <0.50 MG/DL Total Protein 7.0 6.4-8.2 GM/DL Albumin 3.5 3.2-4.5 GM/DL Test 09/14/21 14:00 Range/Units Blood Gas Puncture Site RT RADIAL Blood Gas Patient Temperature 37.1 Arterial Blood pH 7.40 7.37-7.43 Arterial Blood Partial Pressure CO2 44 35-45 MMHG Arterial Blood Partial Pressure O2 57 L 79-93 MMHG Arterial Blood HCO3 27 23-27 MMOL/L Arterial Blood Total CO2 28.7 21.0-31.0 MMOL/L Arterial Blood Oxygen Saturation 89 L 94-100 % Arterial Blood Base Excess 2.1 -2.5-2.5 MMOL/L Martin Test YES-POS Blood Gas Ventilator Setting NO Blood Gas Inspired Oxygen ROOM AIR My Orders Orders - ENYART,SILVIA E MD Monitor-Rhythm Ecg Trace Only (09/14/21 11:55) Ed Iv/Invasive Line Start (09/14/21 11:55) Cbc With Automated Diff (09/14/21 11:55) Comprehensive Metabolic Panel (09/14/21 11:55) Crp Fs (09/14/21 11:55) Troponin I Fs (09/14/21 11:55) Protime With Inr (09/14/21 11:55) Partial Thromboplastin Time (09/14/21 11:55) Ekg Tracing (09/14/21 11:55) Ns Iv 1000 Ml (Sodium Chloride 0.9%) (09/14/21 12:00) Acetaminophen Tablet/Caplet (Tylenol T (09/14/21 12:00) Ondansetron Injection (Zofran Injectio (09/14/21 12:00) Blood Culture (09/14/21 11:55) Magnesium (09/14/21 11:55) Ua Culture If Indicated (09/14/21 11:55) Chest 1 View Ap/Pa Only (09/14/21 11:55) Lactic Acid Analyzer (09/14/21 11:55) Covid 19 Inhouse Test (09/14/21 11:55) Influenza A & B Antigens (09/14/21 11:55) Hydralazine Injection (Apresoline Inject (09/14/21 11:58) Manual Differential (09/14/21 11:52) O2 (09/14/21 12:48) Ns Iv 1000 Ml (Sodium Chloride 0.9%) (09/14/21 12:48) Levofloxacin 750 Mg/150 Ml Iv (Levaquin (09/14/21 12:48) Sputum Culture (09/14/21 12:48) Insulin (Regular) Human (Novolin R (Per (09/14/21 13:52) Arterial Blood Gas (09/14/21 14:51) Medications Given in ED Current Medications Medications Dose Ordered Sig/Francy Route Start Time Stop Time Status Last Admin Dose Admin Acetaminophen 650 mg ONCE ONCE PO 09/14/21 12:00 09/14/21 12:01 DC 09/14/21 12:12 650 MG Ondansetron HCl 4 mg ONCE ONCE IV 09/14/21 12:00 09/14/21 12:01 DC 09/14/21 12:13 4 MG Vital Signs/I&O 09/14/21 09/14/21 11:20 11:20 Temp 37.5 Pulse 104 Resp 17 B/P (MAP) 164/76 (105) O2 Delivery Room Air Room Air Capillary Refill : Progress Note #1: Progress Note Obtain labs as well as chest x-ray, blood cultures, lactic acid, urine, electro cardiogram. Influenza and Covid swabs obtained as well since patient has a PUI since she is having cough, shortness of breath and subjective fever and chills. Differential diagnosis includes pneumonia, Covid, gastroenteritis, urinary tract infection, sepsis Progress Note #2: Progress Note Labs show CBC does not show any acute significant abnormality. Her lactic acid is elevated 3.3 and her glucose is 563. Her BUN and creatinine are both elevated to go along with dehydration. She has elevated CRP to go along with infection and dehydration. Her chest x-ray shows infiltrates in the left lung. Her oxygen saturations are in the mid 90% range. Her blood pressure and heart rate are doing well. We will continue with IV fluids to help treat for the elevated lactic acid and add on Levaquin for treating the pneumonia since she has a penicillin allergy. We will check with the [facility] provider, Dr. Vargas, about admission with her signs of sepsis, pneumonia, dehydration, hyperglycemia with diabetes, PUI for covid. Progress Note #3: Time: 13:45 Progress Note Discussed with Dr. Vargas for the [facility] service and she accepted the patient for admission. She did request an ABG to evaluate her oxygenation and acid-base level. Anticipate giving insulin boluses. We will give a insulin bolus here. Covid results still pending at this time. Influenza swab was negative. Dr. Vargas will begin pended orders for the admission Progress Note #4: Time: 15:24 Progress Note Lactic acid came down to 1.93 with fluids and treatment. Covid result came back as not detected. ECG Initial ECG Impression Date: Sep 14, 2021 Initial ECG Impression Time: 11:26 Initial ECG Rate: 94 Initial ECG Rhythm: Normal Sinus Initial ECG Comparisson: Unchanged Comment Normal sinus rhythm with a heart rate of 94 bpm. OK interval [address] elevation. QT interval 377 ms with a QTc interval 472 ms. The tracing appears similar to prior ones in the system. Diagnostic Imaging Diagonstic Imaging: Xray Plain Films/CT/US/NM/MRI: chest Comments NAME: RO [facility]ENTINO [facility] REC#: [id number] PT STATUS: REG ER : 1950 PHYSICIAN: SILVIA KOEHLER MD ADMIT DATE: 09/14/21/ER FS Draft Date of Exam:09/14/21 CHEST 1 VIEW AP/PA ONLY INDICATION: short of breath, cough, fever COMPARISON: 04/01/2021 FINDINGS: Single frontal view of the chest demonstrates normal heart size and pulmonary vascularity. Evaluation of lung cardona demonstrate subtle patchy airspace opacities in the left mid and lower lung field. There is no large effusion or pneumothorax on either side. Osseous structures show no gross acute abnormalities. IMPRESSION:. Patchy airspace opacities within the left mid and lower lung field concerning for infiltrate. Followup is advised. Dictated on workstation # [id number] Dict: 09/14/21 1234 Trans: 09/14/21 1236 CV [id number] Interpreted by: PADMINI MORALEZ MD Electronically signed by: Reviewed: Reviewed by Me Departure Communication (Admissions) Time/Spoke to Admitting Phy: 13:[address] Vargas about admission to the [facility] service for patient of Dr. Lundberg. We will continue with Covid precautions until results are back. Continue to treat for pneumonia and hyperglycemia and sepsis. Impression Primary Impression: Pneumonia involving left lung Qualified Codes: J18.9 - Pneumonia, unspecified organism Additional Impressions: Sepsis Qualified Codes: A41.9 - Sepsis, unspecified organism Nausea vomiting and diarrhea Person under investigation for COVID-19 Dehydration Diabetes mellitus with hyperglycemia, with long-term current use of insulin Qualified Codes: E13.65 - Other specified diabetes mellitus with hyperglycemia; Z79.4 - correction (current) use of insulin Disposition: 30 STILL A PATIENT Condition: Stable Admissions Decision to Admit Reason: Admit from ER (General) Decision to Admit/Date: Sep 14, 2021 Time/Decision to Admit Time: 13:45 Departure-Patient Inst. Referrals: BERNADINE LUNDBERG MD (PCP/Family) Primary Care Physician SILVIA KOEHLER MD Sep 14, 2021 12:00
[2021-09-14 12:08] LABS: CLARITY,URINE CLEAR; COLOR,URINE YELLOW; GLUCOSE, URINE (UA) 3+ (NEGATIVE); KETONES,URINE TRACE (NEGATIVE); LEUKOCYTE ESTERASE ,URINE NEGATIVE (NEGATIVE); NITRITE,URINE NEGATIVE (NEGATIVE); PH,URINE 5.5 (5-9); PROTEIN,URINE 2+ (NEGATIVE)
[2021-09-14 12:32] LABS: PROTHROMBIN TIME PATIENT 13.2 SEC (12.2-14.7)
--- NOTE | 2021-09-14 12:36 | Diagnostic Imaging Report ---
INDICATION: short of breath, cough, fever COMPARISON: 04/01/2021 FINDINGS: Single frontal view of the chest demonstrates normal heart size and pulmonary vascularity. Evaluation of lung cardona demonstrate subtle patchy airspace opacities in the left mid and lower lung field. There is no large effusion or pneumothorax on either side. Osseous structures show no gross acute abnormalities. IMPRESSION:. Patchy airspace opacities within the left mid and lower lung field concerning for infiltrate. Followup is advised. Dictated by: Dictated on workstation # [id number]
[2021-09-14 12:42] LABS: BACTERIA,URINE FEW /HPF; BILIRUBIN,URINE 1+ (NEGATIVE); WBC,URINE 0-2 /HPF
[2021-09-14 12:43] LABS: AMORPHOUS SEDIMENT,UR FEW AMOR URATES /LPF
[2021-09-14 12:45] LABS: HEMATOCRIT 42 % (35-52); HEMOGLOBIN 13.6 g/dL (11.5-16.0); MEAN CORPUSCULAR HEMOGLOBIN 30 pg (25-34); MEAN CORPUSCULAR HGB CONC 32 g/dL (32-36); MEAN CORPUSCULAR VOLUME 93 fL (80-99); MEAN PLATELET VOLUME 10.9 fL (9.0-12.2); PLATELET COUNT 295 10^3/uL (130-400); WHITE BLOOD COUNT 6.8 10^3/uL (4.3-11.0)
[2021-09-14 12:46] LABS: BASOPHILS # (AUTO) 0.1 10^3/uL (0.0-0.1); BASOPHILS % (AUTO) 1 % (0-10); EOSINOPHILS # (AUTO) 0.1 10^3/uL (0.0-0.3); EOSINOPHILS % (AUTO) 1 % (0-10); LYMPHOCYTES # (AUTO) 0.5 X 10^3 (1.0-4.0); LYMPHOCYTES % (AUTO) 7 % (12-44); MONOCYTES # (AUTO) 0.6 X 10^3 (0.0-1.0); MONOCYTES % (AUTO) 9 % (0-12); NEUTROPHILS # (AUTO) 5.6 X 10^3 (1.8-7.8); NEUTROPHILS % (AUTO) 82 % (42-75)
[2021-09-14 12:47] LABS: BILIRUBIN,TOTAL 0.5 MG/DL (0.1-1.0); BUN/CREATININE RATIO 19; CALCIUM 9.4 MG/DL (8.5-10.1); CARBON DIOXIDE 24 MMOL/L (21-32); CHLORIDE 92 MMOL/L (98-107); CREATININE SERUM 1.49 MG/DL (0.60-1.30); GFR ESTIMATED 35; POTASSIUM 4.6 MMOL/L (3.6-5.0); SODIUM 134 MMOL/L (135-145)
[2021-09-14 12:48] LABS: ALANINE AMINOTRANSFERASE 14 U/L (0-55); ALBUMIN 3.5 GM/DL (3.2-4.5); ALKALINE PHOSPHATASE 161 U/L (40-136)
[2021-09-14] MEDS ORDERED: NS IV 1000 ML 1,000 ML IV STA (12:48)
[2021-09-14 12:49] LABS: GLUCOSE 569 MG/DL (70-105)
[2021-09-14 13:31] LABS: ATYPICAL LYMPHOCYTES 1 %; BAND NEUTROPHILS 8 %; BASOPHILS % (MANUAL) 1 %; EOSINOPHILS % (MANUAL) 0 %; LYMPHOCYTES % (MANUAL) 5 %; MONOCYTES % (MANUAL) 7 %; NEUTROPHILS % (MANUAL) 78 %
[2021-09-14 13:32] LABS: PLATELET ESTIMATE NORMAL; RBC MORPH NORMAL
[2021-09-14] MEDS ORDERED: inSUlin (REGULAR) HUMAN 1 UNIT/0.01 ML (CHARGE PER UNIT) SC STA (13:52)
[2021-09-14 15:00] LABS: ABG PCO2 44 MMHG (35-45); ABG PO2 57 MMHG (79-93)
[2021-09-14 15:01] LABS: ABG BASE EXCESS 2.1 MMOL/L (-2.5-2.5); ABG OXYGEN SATURATION 89 % (94-100); ABG TCO2 28.7 MMOL/L (21.0-31.0); ALLENS TEST YES-POS; INSPIRED O2 ROOM AIR; PATIENT TEMP 37.1; VENTILATOR NO
[2021-09-14] MEDS ORDERED: AZITHROMYCIN INJECTION 500 MG in NS (IVPB) 250 ML IV SCH (16:30)
[2021-09-14] MEDS ORDERED: FLU QUAD HIGH DOSE 240 MCG/0.7 ML 2021-22 (FLUZONE) IM ONE (16:45)
[2021-09-14 16:51] VITALS: BP 171/73
[2021-09-14] MEDS: cefTRIAXone 1 GM PRE-MIX 50 ML IV SCH (16:58)
[2021-09-14] MEDS ORDERED: D5 LR IV SOLUTION 1,000 ML IV SCH (17:00)
--- NOTE | 2021-09-14 17:28 | History & Physical ---
NIRMALA RODRIGUEZ MD 09/14/21 1728: HPI History of Present Illness: 70 year old female with history of of breast cancer s/p mastectomy, HLD, HTN, DM, hypothyroidism presenting for shortness of breath. Patient reports that yesterday, she developed shortness of breath, dry cough, wheezing. She had associated nausea, one episode of NBNB vomiting, one episode of diarrhea, and poor PO intake. She has had subjective fever and chills. No known sick contacts. She ultimately went to the ED for her dyspnea and was found to be tachycardic with labs showing Cr 1.49, lactate 3.3, CRP 13.3. CXR showed LLL pneumonia. She was transferred to [facility] for admission. Pertinent recent medical history includes echo with EF 50-55%, G1DD in 04/13. Patient denies history of tobacco, alcohol or recreational drug use. She uses a walker and lives at home with her . Source: patient Exam Limitations: no limitations Date seen by provider: Sep 14, 2021 Time Seen by Provider: 16:22 Attending Physician Nubia Fields MD PCP Self,Patricio CAMPOS Consult Date of Admission Sep 14, 2021 at 16:10 Home Medications Home Medications Reviewed patient Home Medication Reconciliation performed by pharmacy medication reconciliations customer data technician and/or nursing. Patients Allergies have been reviewed. Allergies Coded Allergies: adhesive tape (Unverified Allergy, Unknown, 12/24/19) codeine (Verified Allergy, Unknown, 12/24/19) morphine (Verified Allergy, Unknown, 12/24/19) penicillin G (Verified Allergy, Unknown, 12/24/19) [id number]-[id number]-[id number] Hx Patient Social History Marrital Status: Smoking Status: Never a Smoker 2nd Hand Smoke Exposure: No Recent Hopitalizations: No Alcohol Use?: No Have you traveled recently?: No Immunizations Up To Date Date of Influenza Vaccine: Sep 28, 2019 Past Medical History PMHx: Left breast cancer treated with chemo in the Diabetes HTN HLD SurgHx: Left breast removal/reconstruction Right breast reduction Cholecystectomy Family Medical History Significant Family History: Cancer Review of Systems ([facility]) Constitutional: chills EENTM: No ear pain, No nose congestion Respiratory: cough, dyspnea on exertion, short of breath Cardiovascular: No chest pain, No edema, No palpitations Gastrointestinal: nausea, vomiting Genitourinary: no symptoms reported Musculoskeletal: no symptoms reported Skin: no symptoms reported Psychiatric/Neurological: No Symptoms Reported Reviewed Test Results Reviewed Test Results Lab CBC: WBC 6.8 with 8% bands BMP: BUN 28 and Cr 1.49 Lact: 3.3 > 1.9 Covid negative CXR: L lung base consolidation Physical Exam-([facility]) Physical Exam Vital Signs VS - Last 72 Hours, by Label 09/14/21 09/14/21 09/14/21 09/14/21 11:20 11:20 15:18 16:51 Temp 37.5 36.8 Pulse 104 96 93 Resp 17 17 18 B/P (MAP) 164/76 (105) 146/60 171/73 (105) Pulse Ox 95 92 O2 Delivery Room Air Room Air Room Air Room Air Capillary Refill : Less Than 3 Seconds General Appearance: WD/WN, no apparent distress Eyes: Bilateral Eye Normal Inspection HEENT: PERRL/EOMI Neck: non-tender, supple Respiratory: crackles (L lung base), wheezing (Soft diffuse inspiratory and expiratory wheezing) Cardiovascular: normal peripheral pulses, regular rate, rhythm, no edema, other (3/6 NEFTALI present) Gastrointestinal: normal bowel sounds, non tender, soft Extremities: normal range of motion, non-tender, no pedal edema Neurologic/Psychiatric: alert, oriented x 3 Skin: normal color, warm/dry Assessment/Plan Assessment/Plan Admission Dx Community Acquired Pneumonia Admission Status: Observation Reason for Inpatient Admission: Community Acquired Pneumonia (1) Pneumonia involving left lung Status: Acute Assessment & Plan: One day of cough, shortness of breath found to have left lung base infiltrated and oxygen requirement here when ambulating, dropping to 85% on RA. Will treat for CAP. -Oxygen to maintain saturations 90% -Check sputum, blood culture -Rocephin, azithromycin with EOT 09/18 -PRN albuterol Qualifiers: Qualified Codes: J18.9 - Pneumonia, unspecified organism (2) Lactic acidosis Status: Resolved Assessment & Plan: Initially lactate 3.3, normalized with fluids and back ~3 on recheck. 2/2 dehydration, pneumonia. -Continue fluids at 100 mL/hr overnight with recheck of lactate in AM (3) Hyperglycemia due to diabetes mellitus Assessment & Plan: History of T2DM with regimen of trulicity 1.5 mg daily and aspart 27 U TID with meals, but no long acting insulin. -Start levemir 10U QHS -Aspart 10U TID with meals -Sliding scale 3 -Diabetic diet (4) SHEREE (acute kidney injury) Status: Chronic Assessment & Plan: One day of N/V/D and poor PO intake, tachyycardic with dry MM on exam consistent with dehydration and prerenal SHEREE. S/p 1 L fluids in ER. -Continue 100 mL/hr overnight -Hold losartan-HCTZ (5) Dehydration Status: Resolved Assessment & Plan: One day of N/V/D with poor PO, s/p 1 L. -Continue 100 mL/hr overnight (6) Hypertension Status: Chronic Assessment & Plan: Holding home antihypertensives given SHEREE. (7) Hypothyroidism Status: Chronic Assessment & Plan: Continue synthroid. (8) Hyperlipidemia Status: Chronic Assessment & Plan: Continue atorvastatin. NUBIA FIELDS MD 09/15/21 1532: Home Medications Allergies Coded Allergies: adhesive tape (Unverified Allergy, Unknown, 12/24/19) codeine (Verified Allergy, Unknown, 12/24/19) morphine (Verified Allergy, Unknown, 12/24/19) penicillin G (Verified Allergy, Unknown, 12/24/19) Supervisory-Addendum Brief Supervisory Addendum Pt seen by me today 09/15 am, oversaw PGY3 Scot Rodriguez MD, and agree with documentation and assessment and plan. NIRMALA RODRIGUEZ MD Sep 14, 2021 17:28 NUBIA FIELDS MD Sep 15, 2021 15:32
[2021-09-14] MEDS ORDERED: LACTATED RINGERS 1,000 ML IV ONE (17:37)
[2021-09-14] MEDS: LACTATED RINGERS 1,000 ML IV SCH (17:42)
[2021-09-14] MEDS ORDERED: ONDANSETRON 4 MG/2 ML (SDV) Z0FRAN IVP PRN (17:45)
[2021-09-14] MEDS ORDERED: cloNIDine 0.1 MG (CATAPRES) TAB PO PRN (17:45)
[2021-09-14] MEDS: inSUlin ASPART (NovoLOG) 1 UNIT/0.01 ML (CHARGE PER UNIT) SC SCH ×2 (17:47→22:16)
[2021-09-14] MEDS: LORazepam 0.5 MG (ATIVAN) TABLET PO PRN ×2 (18:26→22:11)
[2021-09-14 20:18] VITALS: BP 174/84
[2021-09-14] MEDS: GABAPENTIN 300 MG (NEURONTIN) CAP PO SCH (22:12)
[2021-09-14 23:50] VITALS: BP_SYST 153; BP_SYST 174; BP_DIAS 84; BP_DIAS 86
[2021-09-15 04:35] VITALS: BP 169/90
[2021-09-15] MEDS: LACTATED RINGERS 1,000 ML IV SCH (06:07)
[2021-09-15] MEDS: inSUlin ASPART (NovoLOG) 1 UNIT/0.01 ML (CHARGE PER UNIT) SC SCH ×7 (06:08→21:07)
[2021-09-15] MEDS: RT-ALBUTEROL SULF 2.5 MG/3 ML PRE-MIX VIAL INH PRN ×2 (06:12→20:51)
[2021-09-15] MEDS: VENlafaxine XR 75 MG (EFFEXOR XR) CAP PO SCH (06:30)
[2021-09-15] MEDS: LEVOTHYROXINE 112 MCG (LEVOTHROID) TAB PO SCH (06:30)
[2021-09-15 07:56] LABS: BASOPHILS # (AUTO) 0.1 10^3/uL (0.0-0.1); BASOPHILS % (AUTO) 1 % (0-10); EOSINOPHILS # (AUTO) 0.1 10^3/uL (0.0-0.3); EOSINOPHILS % (AUTO) 2 % (0-10); HEMATOCRIT 36 % (35-52); HEMOGLOBIN 11.2 g/dL (11.5-16.0); LYMPHOCYTES # (AUTO) 0.9 10^3/uL (1.0-4.0); LYMPHOCYTES % (AUTO) 15 % (12-44); MEAN CORPUSCULAR HEMOGLOBIN 30 pg (25-34); MEAN CORPUSCULAR HGB CONC 31 g/dL (32-36); MEAN CORPUSCULAR VOLUME 96 fL (80-99); MEAN PLATELET VOLUME 10.4 fL (9.0-12.2); MONOCYTES # (AUTO) 0.7 10^3/uL (0.0-1.0); MONOCYTES % (AUTO) 12 % (0-12); NEUTROPHILS # (AUTO) 4.6 10^3/uL (1.8-7.8); NEUTROPHILS % (AUTO) 71 % (42-75); PLATELET COUNT 252 10^3/uL (130-400); WHITE BLOOD COUNT 6.4 10^3/uL (4.3-11.0)
[2021-09-15 08:00] VITALS: BP 154/83
[2021-09-15 08:35] LABS: ALBUMIN 2.9 GM/DL (3.2-4.5); BILIRUBIN,TOTAL 0.4 MG/DL (0.1-1.0); CALCIUM 8.4 MG/DL (8.5-10.1); CREATININE SERUM 1.46 MG/DL (0.60-1.30); POTASSIUM 4.1 MMOL/L (3.6-5.0); TOTAL PROTEIN 5.5 GM/DL (6.4-8.2)
[2021-09-15] MEDS ORDERED: amLODIPine 5 MG (NORVASC) TAB PO SCH (09:00)
[2021-09-15] MEDS: GABAPENTIN 300 MG (NEURONTIN) CAP PO SCH ×2 (09:15→20:51)
[2021-09-15] MEDS ORDERED: RT-ALBUINH IH (10:43)
[2021-09-15 12:00] VITALS: BP 133/74
--- NOTE | 2021-09-15 14:58 | Progress Note ---
Subjective Subjective/Events-last exam Patient reports that breathing treatment and IS seemed to help dyspnea overnight and she feels better this AM. She remains on 2 L NC. She denies chest pain, abdominal pain, or any further vomiting or diarrhea. Focused Exam Lactate Level 09/15/21 00:13: Lactic Acid Level 2.92*H 09/15/21 02:40: Lactic Acid Level 2.80*H 09/15/21 07:45: Lactic Acid Level 0.89 Time of Focused Exam: 13:20 Objective Exam Last Set of Vital Signs Vital Signs Date Time Temp Pulse Resp B/P (MAP) Pulse Ox O2 Delivery O2 Flow Rate FiO2 09/15/21 09:00 96 Nasal Cannula 2.00 09/15/21 08:00 38.1 92 20 154/83 (106) Capillary Refill : Less Than 3 Seconds I&O Intake and Output 09/14/21 23:59 Intake Total 1100 ml Balance 1100 ml Intake Oral 100 ml IV Total 1000 ml # Voids 2 Daily Weight Change No General: Alert, Oriented X3, Cooperative HEENT: Atraumatic Neck: Supple, No JVD Lungs: Other (Crackles at left base) Heart: Regular Rate, Normal S1, Normal S2, Other (3/6 NEFTALI present) Abdomen: Soft, No Tenderness Extremities: No Clubbing Skin: No Rashes Results/Procedures Lab Laboratory Tests 09/14/21 17:10: Glucometer 434*H 09/14/21 17:11: Lactic Acid Level 3.44*H 09/14/21 20:50: Glucometer 270H 09/14/21 22:10: Lactic Acid Level 2.66*H 09/15/21 00:13: Lactic Acid Level 2.92*H 09/15/21 01:30: Glucometer 151H 09/15/21 02:40: Lactic Acid Level 2.80*H 09/15/21 05:58: Glucometer 161H 09/15/21 07:45: White Blood Count 6.4, Red Blood Count 3.73L, Hemoglobin 11.2L, Hematocrit 36, Mean Corpuscular Volume 96, Mean Corpuscular Hemoglobin 30, Mean Corpuscular Hemoglobin Concent 31L, Red Cell Distribution Width 13.4, Platelet Count 252, Mean Platelet Volume 10.4, Immature Granulocyte % (Auto) 0, Neutrophils (%) (Auto) 71, Lymphocytes (%) (Auto) 15, Monocytes (%) (Auto) 12, Eosinophils (%) (Auto) 2, Basophils (%) (Auto) 1, Neutrophils # (Auto) 4.6, Lymphocytes # (Auto) 0.9L, Monocytes # (Auto) 0.7, Eosinophils # (Auto) 0.1, Basophils # (Auto) 0.1, Immature Granulocyte # (Auto) 0.0, Sodium Level 137, Potassium Level 4.1, Chloride Level 101, Carbon Dioxide Level 21, Anion Gap 15H, Blood Urea Nitrogen 26H, Creatinine 1.46H, Estimat Glomerular Filtration Rate 36, BUN/Creatinine Ratio 18, Glucose Level 234H, Lactic Acid Level 0.89, Calcium Level 8.4L, Corrected Calcium 9.3, Total Bilirubin 0.4, Aspartate Amino Transf (AST/SGOT) 16, Alanine Aminotransferase (ALT/SGPT) 11, Alkaline Phosphatase 100, Total Pr otein 5.5L, Albumin 2.9L, Procalcitonin 0.23H 09/15/21 12:22: Glucometer 247H Assessment/Plan Assessment/Plan Admission Dx CAP Admission Status: Inpatient Order (span 2 midnights) Reason for Inpatient Admission: CAP (1) Pneumonia involving left lung Status: Acute Assessment & Plan: One day of cough, shortness of breath found to have left lung base infiltrated and oxygen requirement here when ambulating, dropping to 85% on RA. Improving symptoms but persistent O2 requirement today. -Wean oxygen as tolerated -Follow cultures -Rocephin, azithromycin with EOT 09/18 -PRN albuterol Qualifiers: Qualified Codes: J18.9 - Pneumonia, unspecified organism (2) Hyperglycemia due to diabetes mellitus Assessment & Plan: History of T2DM with regimen of trulicity 1.5 mg daily and aspart 27 U TID with meals, but no long acting insulin. Glucose elevated this AM, will increase regimen. -Increase levemir from 10U to 14U QHS (ideally would increase this and decrease meal-time requirement to balance regimen) -Increase aspart from 10 U to 14U TID with meals -Sliding scale 3 -Diabetic diet (3) SHEREE (acute kidney injury) Status: Chronic Assessment & Plan: One day of N/V/D and poor PO intake, tachyycardic with dry MM on exam consistent with dehydration and prerenal SHEREE. S/p 1 L fluids in ER and additional 1 L here with persistently elevated Cr. Outpatient labs reviewed and appears to be a chronic component. -Resume losartan at discharge (4) Hypertension Status: Chronic Assessment & Plan: Holding home losartan-HCTZ given SHEREE. -Amlodipine 5 mg daily added (5) Lactic acidosis Status: Resolved Assessment & Plan: Initially lactate 3.3, normalized with fluids. (6) Dehydration Status: Resolved Assessment & Plan: One day of N/V/D with poor PO, s/p 2 L fluid and improving PO intake. (7) Hypothyroidism Status: Chronic Assessment & Plan: Continue synthroid. (8) Hyperlipidemia Status: Chronic Assessment & Plan: Continue atorvastatin. NIRMALA GUTIERREZ MD Sep 15, 2021 14:58
[2021-09-15 16:00] VITALS: BP 171/95
[2021-09-15] MEDS ORDERED: AZITHROMYCIN 250 MG TAB (ZITHROMAX) PO SCH (17:00)
[2021-09-15] MEDS: cefTRIAXone 1 GM PRE-MIX 50 ML IV SCH (17:08)
[2021-09-15 20:00] VITALS: BP 193/103
[2021-09-15] MEDS: LORazepam 0.5 MG (ATIVAN) TABLET PO PRN (20:50)
[2021-09-15 23:42] VITALS: BP 153/78
[2021-09-16 03:46] VITALS: BP 143/80
[2021-09-16] MEDS: LEVOTHYROXINE 112 MCG (LEVOTHROID) TAB PO SCH (06:41)
[2021-09-16] MEDS: VENlafaxine XR 75 MG (EFFEXOR XR) CAP PO SCH (06:41)
[2021-09-16] MEDS: inSUlin ASPART (NovoLOG) 1 UNIT/0.01 ML (CHARGE PER UNIT) SC SCH ×5 (06:42→14:03)
[2021-09-16 07:01] LABS: BASOPHILS % (AUTO) 0 % (0-10); EOSINOPHILS # (AUTO) 0.1 10^3/uL (0.0-0.3); EOSINOPHILS % (AUTO) 1 % (0-10); HEMATOCRIT 34 % (35-52); HEMOGLOBIN 10.7 g/dL (11.5-16.0); LYMPHOCYTES # (AUTO) 1.1 10^3/uL (1.0-4.0); LYMPHOCYTES % (AUTO) 15 % (12-44); MEAN CORPUSCULAR HEMOGLOBIN 30 pg (25-34); MEAN CORPUSCULAR HGB CONC 31 g/dL (32-36); MEAN CORPUSCULAR VOLUME 95 fL (80-99); MEAN PLATELET VOLUME 10.6 fL (9.0-12.2); MONOCYTES # (AUTO) 0.7 10^3/uL (0.0-1.0); MONOCYTES % (AUTO) 9 % (0-12); NEUTROPHILS # (AUTO) 5.4 10^3/uL (1.8-7.8); NEUTROPHILS % (AUTO) 74 % (42-75); PLATELET COUNT 246 10^3/uL (130-400); WHITE BLOOD COUNT 7.3 10^3/uL (4.3-11.0)
[2021-09-16 07:11] LABS: POTASSIUM 4.4 MMOL/L (3.6-5.0)
[2021-09-16 07:12] LABS: CALCIUM 8.4 MG/DL (8.5-10.1)
[2021-09-16 07:13] LABS: TOTAL PROTEIN 5.6 GM/DL (6.4-8.2)
[2021-09-16 07:15] LABS: BILIRUBIN,TOTAL 0.4 MG/DL (0.1-1.0)
[2021-09-16 07:16] LABS: CREATININE SERUM 1.69 MG/DL (0.60-1.30)
[2021-09-16 07:22] VITALS: BP 160/79
[2021-09-16] MEDS ORDERED: LACTATED RINGERS 1,000 ML IV SCH (08:45)
[2021-09-16] MEDS ORDERED: LOSARTAN 25 MG (COZAAR) TAB PO SCH (09:00)
[2021-09-16] MEDS ORDERED: amLODIPine 5 MG (NORVASC) TAB PO SCH (09:00)
[2021-09-16] MEDS: GABAPENTIN 300 MG (NEURONTIN) CAP PO SCH (09:42)
[2021-09-16 11:26] VITALS: BP 167/91
[2021-09-16] MEDS ORDERED: AMLO-250 PO (12:04)
[2021-09-16] MEDS ORDERED: INSU100V5 SQ (12:04)
[2021-09-16] MEDS ORDERED: ATOR40TA PO (12:04)
[2021-09-16] MEDS ORDERED: INSU100V16 SC (12:04)
[2021-09-16] MEDS ORDERED: CEFD300C3 PO (12:04)
--- NOTE | 2021-09-16 12:05 | Discharge Summary ---
Discharge [facility] Discharge Medications New, Converted or Re-Newed RX: Transmitted to Pharmacy New Medications: Cefdinir (Cefdinir) 300 Mg Capsule 300 MG PO BID for 5 Days, #10 CAP 0 Refills Amlodipine Besylate (Amlodipine Besylate) 5 Mg Tablet 10 MG PO DAILY, #30 TAB 0 Refills Atorvastatin Calcium (Lipitor) 40 Mg Tablet 40 MG PO HS, #30 TAB 0 Refills Insulin Determir (Levemir) 1,000 Units/10 Ml Soln 20 UNIT SQ HS, #1 EA 0 Refills Changed Medications: Insulin Aspart (Novolog) 100 Unit/1 Ml Susp 14 UNITS SC TIDAC, #1 EACH 0 Refills (Changed from: 50 UNITS; Refills: ) Continued Medications: Albuterol Sulfate (Proair Hfa) 1 Puff Puff 2 PUFF IH Q4H PRN for SHORTNESS OF BREATH, EA Gabapentin (Neurontin) 300 Mg Capsule 300 MG PO TID, CAP Levothyroxine Sodium (Levothyroxine Sodium) 112 Mcg Tablet 112 MCG PO DAILY Venlafaxine HCl (Venlafaxine HCl) 75 Mg Tab 75 MG PO TIDWM, TAB Discontinued Medications: Naproxen (Naproxen) 500 Mg Tablet 500 MG PO BID PRN for PAIN-MILD (1-4) Patient Instructions Goal/Follow Up Appt: Follow up with primary physician within a week of discharge. Activity & Diet Discharge Diet: ADA Diet Activity as Tolerated: Yes NUBIA FIELDS MD Sep 16, 2021 12:05
--- NOTE | 2021-09-16 15:20 | Discharge Summary ---
NIRMALA GUTIERREZ MD 09/16/21 1514: Discharge Summary Hospital Course Problems/Diagnosis: (1) Pneumonia involving left lung Status: Acute Assessment & Plan: Admitted 09/14 after one day of cough, shortness of breath found to have elevated procalcitonin, left lung base infiltrate and oxygen requirement, consistent with CAP. She was treated with rocephin and azithromycin while admitted with PRN albuterol and had symptom improvement. Oxygen requirement improved, but she required 1 L oxygen at rest and 3 L with exertion at time of discharge. She was given 5 additional days of cefdinir at [place] for treatment of CAP to follow up with PCP. Qualifiers: Qualified Codes: J18.9 - Pneumonia, unspecified organism (2) Hyperglycemia due to diabetes mellitus Assessment & Plan: History of T2DM with unclear home regimen, though seemingly it was solely high doses of mealtime insuline (50U TID with meals?). While admitted, she was placed on basal bolus regimen of levemir 20 U nightly and 14 units TID with meals and suspect that she will need addition of oral agents and/or uptitration of insulin in the outpatient setting. (3) SHEREE (acute kidney injury) Status: Chronic Assessment & Plan: One day of N/V/D and poor PO intake, tachyycardic with dry MM on exam with elevated creatinine, thought to be SHEREE initially. On review of prior labs, it appears that patient has had rising creatinine recently concerning for CKD and Cr of 1.4 - 1.7 may be new baseline. (4) Hypertension Status: Chronic Assessment & Plan: Unclear if patient was on home regimen, as losartan-HCTZ was ordered, but she was not taking this. Managed with amlodipine 10 mg daily while inpatient, continued at discharge to follow up with PCP. (5) Lactic acidosis Status: Resolved Resolution Date/Time: 09/15/21 @ 14:56 Assessment & Plan: Initially lactate 3.3, normalized with fluids. (6) Dehydration Status: Resolved Resolution Date/Time: 09/15/21 @ 15:01 Assessment & Plan: One day of N/V/D with poor PO, s/p 2.5 L fluid resuscitation while admitted, tolerating PO intake at time of discharge. (7) Hypothyroidism Status: Chronic Assessment & Plan: Continue synthroid. (8) Hyperlipidemia Status: Chronic Assessment & Plan: Continue atorvastatin. Hospital Course Date of Admission: Sep 14, 2021 at 16:10 Admission Diagnosis : Family Physician/Provider: Patricio Barnard MD Date of Discharge: 09/16/21 Discharge Diagnosis: Community Acquired Pneumonia Hospital Course: See problem list Labs and Pending Lab Test: Laboratory Tests 09/15/21 16:54: Glucometer 256H 09/15/21 20:14: Glucometer 183H 09/16/21 05:07: Glucometer 197H 09/16/21 06:34: White Blood Count 7.3, Red Blood Count 3.60L, Hemoglobin 10.7L, Hematocrit 34L, Mean Corpuscular Volume 95, Mean Corpuscular Hemoglobin 30, Mean Corpuscular Hemoglobin Concent 31L, Red Cell Distribution Width 13.5, Platelet Count 246, Mean Platelet Volume 10.6, Immature Granulocyte % (Auto) 0, Neutrophils (%) (Auto) 74, Lymphocytes (%) (Auto) 15, Monocytes (%) (Auto) 9, Eosinophils (%) (Auto) 1, Basophils (%) (Auto) 0, Neutrophils # (Auto) 5.4, Lymphocytes # (Auto) 1.1, Monocytes # (Auto) 0.7, Eosinophils # (Auto) 0.1, Basophils # (Auto) 0.0, Immature Granulocyte # (Auto) 0.0, Sodium Level 136, Potassium Level 4.4, Chloride Level 100, Carbon Dioxide Level 26, Anion Gap 10, Blood Urea Nitrogen 28H, Creatinine 1.69H, Estimat Glomerular Filtration Rate 30, BUN/Creatinine Ratio 17, Glucose Level 248H, Calcium Level 8.4L, Corrected Calcium 9.2, Total Bilirubin 0.4, Aspartate Amino Transf (AST/SGOT) 18, Alanine Aminotransferase (ALT/SGPT) 8, Alkaline Phosphatase 119, Total Protein 5.6L, Albumin 3.0L 09/16/21 10:24: Glucometer 154H Microbiology 09/14/21 Blood Culture - Preliminary, Resulted No growth Home Meds Active Cefdinir 300 Mg Capsule 300 Mg PO BID 5 Days Levemir (Insulin Determir) 1,000 Units/10 Ml Soln 20 Unit SQ HS Amlodipine Besylate 5 Mg Tablet 10 Mg PO DAILY Lipitor (Atorvastatin Calcium) 40 Mg Tablet 40 Mg PO HS Novolog (Insulin Aspart) 100 Unit/1 Ml Susp 14 Units SC TIDAC Reported Proair Hfa (Albuterol Sulfate) 1 Puff Puff 2 Puff IH Q4H PRN Neurontin (Gabapentin) 300 Mg Capsule 300 Mg PO TID Levothyroxine Sodium 112 Mcg Tablet 112 Mcg PO DAILY Venlafaxine HCl 75 Mg Tab 75 Mg PO TIDWM Assessment/Pt DC Instructions Patient to follow up with PCP within 2 weeks for management of chronic medical conditions. Discharge Diet: ADA Diet Activity as Tolerated: Yes Discharge Physical Examination Allergies: Coded Allergies: adhesive tape (Unverified Allergy, Unknown, 12/24/19) codeine (Verified Allergy, Unknown, 12/24/19) morphine (Verified Allergy, Unknown, 12/24/19) penicillin G (Verified Allergy, Unknown, 12/24/19) General Appearance: No Apparent Distress, WD/WN Respiratory: No Accessory Muscle Use, No Respiratory Distress, Crackles (Left lung base) Cardiovascular: Regular Rate, Rhythm, No Edema, No Murmur Gastrointestinal: Normal Bowel Sounds, Non Tender, Soft Skin: Normal Color, Warm/Dry Neurologic/Psychiatric: Alert, Oriented x3 NUBIA FIELDS MD 09/16/211918: Discharge Summary Discharge Physical Examination Allergies: Coded Allergies: adhesive tape (Unverified Allergy, Unknown, 12/24/19) codeine (Verified Allergy, Unknown, 12/24/19) morphine (Verified Allergy, Unknown, 12/24/19) penicillin G (Verified Allergy, Unknown, 12/24/19) Supervisory-Addendum Brief Supervisory Addendum I personally have seen and evaluated the patient and performed my own physical exam. I agree with assessment and plan as documented by PGY3 Scot Gutierrez MD. Instructed patient would recommend repeating labs next week to follow renal function and consider further chronic kidney disease work up as indicated with her primary physician. NIRMALA GUTIERREZ MD Sep 16, 2021 15:14 NUBIA FIELDS MD Sep 16, 2021 19:19
--- NOTE | 2021-09-16 17:22 | Physician Query Clarification ---
Physician Query-General Query to Physician: The medical record reflects the following clinical scenario: The patient, in the setting of History/Risk factors, Pneumonia, DM Clinical Findings Admission VS/LABS: HR 104, RR 17, BP 164/76, SpO2 97% sat on room air T 37.5, WBC 6.8, Glucose 569, Lactic Acid 3.3, then 1.93, then 3.44, BC X 2 no growth Treatment ER: Normal saline 2 L, levofloxacin IV, insulin, Added Ceftriaxone and 1L D5 LR, and 2L LR, Question: Do you agree with the impression of Sepsis, present on admission per Dr. Anna Anglin? 1. Yes; will document Sepsis present on admission in the Progress Notes/Discharge Summary 2. No; will continue current documentation in the Progress Notes/Discharge Summary 3. Other; will document explanation of clinical findings 4. Clinically undetermined; no explanation for clinical findings Please clarify and document your clinical opinion in the Progress Notes and Discharge Summary including the definitive and/or presumptive diagnosis, (suspected or probable), related to the above clinical findings. Please include clinical findings supporting your diagnosis. In responding to this query, please exercise your independent professional judgment. The purpose of this communication is to more accurately reflect the complexity of your patients condition. The fact that a question is asked does not imply that any particular answer is desired or expected. Please remember a lack of response to the above will prompt a phone page by CDI/coding staff Thank you for timely response to this clarification. Salud Gan MSN, RN Clinical Elevator Service Mechanic [phone] [email or web address] PHYSICIAN RESPONSE: Based on the clinical findings in the record, please respond to the query above on this document as an addendum. Physician Response: Physician Response 1 If you have questions please contact: Oil Painter: Ext: Thank you for your time and cooperation. Clinical Elevator Service Mechanic/Oil Painter This is a permanent part of the medical record SALUD GAN Sep 16, 2021 17:22 NUBIA FIELDS MD Sep 16, 2021 19:25
== END 2021-09-16 15:20 | disposition home or self-care (01) | DRG 871 ==
LOC: EDUNIT# 10:44 → ER FS 10:46 → 4TH 16:10
PROVIDERS: ADMIT Family Medicine; ATTEND Family Medicine
DX: A41.9 Sepsis, unspecified organism (principal); J18.9 Pneumonia, unspecified organism; E87.2 Acidosis; N17.9 Acute kidney failure, unspecified; M19.90 Unspecified osteoarthritis, unspecified site; E86.0 Dehydration; Z20.822 Contact with and (suspected) exposure to COVID-19; E11.65 Type 2 diabetes mellitus with hyperglycemia; E78.5 Hyperlipidemia, unspecified; I10 Essential (primary) hypertension; E03.9 Hypothyroidism, unspecified; Z79.4 Long term (current) use of insulin; Z79.890 Hormone replacement therapy; Z85.3 Personal history of malignant neoplasm of breast; Z88.0 Allergy status to penicillin; Z88.5 Allergy status to narcotic agent; Z92.21 Personal history of antineoplastic chemotherapy; Z90.12 Acquired absence of left breast and nipple
CPT/HCPCS: 36415; 71045; 80053; 81000; 82805; 82947; 83036; 83605; 83735; 84145; 84484; 85007; 85025; 85027; 85610; 85730; 86141; 87040; 87636; 87804; 93005; 93041; 94640; 94664; 94760; 94761; 96361; 96372; 96374; 96375

== ENCOUNTER → 2021-09-25 | Outpatient (CLI) | payer MEDICARE ==
[~2021-09-25] MED LIST changes: +AMLO-250 PO; +ATOR40TA PO; +CEFD300C3 PO; +INSU100V5 SQ; +RT-ALBUINH IH
--- NOTE | 2021-09-25 13:06 | Diagnostic Imaging Report ---
Indication: Pneumonia. TIME OF EXAM: 11:59 AM Correlation is made with prior chest from 04/01/2021. The heart is enlarged. There is infiltrate in the left lung base obscuring the left hemidiaphragm. Right lung is clear. There appears to be some trace left pleural fluid. No pneumothorax is seen. IMPRESSION: Cardiomegaly with left basilar infiltrate and trace left pleural effusion. Dictated by: Dictated on workstation # [id number]
== END ==
LOC: RAD FS 11:48
PROVIDERS: ATTEND Family Medicine
DX: I51.7 Cardiomegaly (principal); J90 Pleural effusion, not elsewhere classified; J18.9 Pneumonia, unspecified organism
CPT/HCPCS: 71046

== ENCOUNTER → 2021-09-30 | Outpatient (CLI) | payer MEDICARE ==
--- NOTE | 2021-09-30 11:57 | Diagnostic Imaging Report ---
INDICATION: Pneumonia, followup. TIME OF EXAM: 11:42 AM Correlation is made with prior chest from 09/25/2021. The heart is enlarged but stable. There continues to be infiltrate in the left base and screening left hemidiaphragm. Central vascularity remains prominent. Right lung is fairly clear. There is a small amount of pleural fluid on the left. There is no pneumothorax. Multiple surgical clips left axilla are noted. IMPRESSION: Continued left basilar infiltrate and small left effusion, similar to examination 5 days earlier. Dictated by: Dictated on workstation # [id number]
== END ==
LOC: RAD FS 11:32
PROVIDERS: ATTEND Family Medicine
DX: J18.9 Pneumonia, unspecified organism (principal)
CPT/HCPCS: 71046

== ENCOUNTER → 2021-10-08 | Outpatient (CLI) | payer MEDICARE ==
--- NOTE | 2021-10-08 15:43 | Diagnostic Imaging Report ---
INDICATION: Followup pneumonia. TIME OF EXAM: 3:18 PM Correlation is made with prior chest from 09/30/2021. Heart is enlarged but stable. There has been some improvement in the infiltrate in the left lung base. There may be some mild infiltrate remaining. Right lung is clear. No significant effusion or pneumothorax is seen. There appear to be clips in the left axilla. IMPRESSION: Partial clearing of left basilar pneumonia when compared to examination from 09/30/2021. Dictated by: Dictated on workstation # [id number]
== END ==
LOC: RAD FS 14:56
PROVIDERS: ATTEND Family Medicine
DX: J18.9 Pneumonia, unspecified organism (principal)
CPT/HCPCS: 71046

== ENCOUNTER 2021-12-03 01:09 | Emergency (ER) | payer MEDICARE ==
[2021-12-03 01:18] VITALS: BP 138/71
[2021-12-03] MEDS ORDERED: DEXTROSE 50% 50 ML (IMS) SYR IV STA (01:24)
[2021-12-03] MEDS ORDERED: DEXTROSE 50% 50 ML (IMS) SYR ONE (01:24)
--- NOTE | 2021-12-03 01:37 | ED General ---
General Stated Complaint: UNRESPONSIVE Source of Information: EMS, Family, Old Records History of Present Illness Date Seen by Provider: Dec 03, 2021 Time Seen by Provider: 01:09 Initial Comments 71-year-old female presenting by EMS with complaints of altered mental status and low blood sugar. Family reported to EMS that she does not eat lunch however solid food she usually just drinks juices. She continues to get her regular doses of insulin because her sugars have been in the 300s. She has had several episodes of low blood sugar this week. Tonight she was having a low blood sugar and was not responding normally for family. EMS tried to give her glucagon and tried IV attempts but were not accessible. Her sugar did come up to 65 and she was little more alert so they gave some oral glucose gel. However since she was not fully alert they did not give her a full tube of the gel. She continued to be confused and was not following commands. Her glucose on arrival to the ED was 104. Associated Systoms: No Chest Pain, No Cough, No Diaphoresis, No Fever/Chills, No Headaches, No Loss of Appetite, No Malaise, No Nausea/Vomiting, No Seizure Allergies and Home Medications Allergies Coded Allergies: adhesive tape (Unverified Allergy, Unknown, 12/24/19) codeine (Verified Allergy, Unknown, 12/24/19) morphine (Verified Allergy, Unknown, 12/24/19) penicillin G (Verified Allergy, Unknown, 12/24/19) Patient Home Medication List Home Medication List Reviewed: Yes Albuterol Sulfate (Proair Hfa) 1 Puff Puff, 2 PUFF IH Q4H PRN for SHORTNESS OF BREATH, (Reported) Entered as Reported by: BASHIR SALEH on 09/15/21 1043 Amlodipine Besylate (Amlodipine Besylate) 5 Mg Tablet, 10 MG PO DAILY Prescribed by: NUBIA FEILDS on 09/16/21 1204 Atorvastatin Calcium (Lipitor) 40 Mg Tablet, 40 MG PO HS Prescribed by: NUBIA FIELDS on 09/16/21 1204 Cefdinir (Cefdinir) 300 Mg Capsule, 300 MG PO BID Prescribed by: NUBIA FIELDS on 09/16/21 1204 Gabapentin (Neurontin) 300 Mg Capsule, 300 MG PO TID, (Reported) Entered as Reported by: MARELY BROWN on 06/19/20 1013 Insulin Aspart (Novolog) 100 Unit/1 Ml Susp, 14 UNITS SC TIDAC Prescribed by: NUBIA FIELDS on 09/16/21 1204 Insulin Determir (Levemir) 1,000 Units/10 Ml Soln, 20 UNIT SQ HS Prescribed by: NUBIA FIELDS on 09/16/21 1204 Levothyroxine Sodium (Levothyroxine Sodium) 112 Mcg Tablet, 112 MCG PO DAILY, (Reported) Entered as Reported by: BASHIR SALHE on 12/25/19 09 Venlafaxine HCl (Venlafaxine HCl) 75 Mg Tab, 75 MG PO TIDWM, (Reported) Entered as Reported by: BASHIR SALEH on 12/25/19913 Review of Systems Review of Systems Constitutional: no symptoms reported unable to obtain ROS due to patient's clinical condition Past Dqenhlh-Nsfygm-Ezmdhk Hx Immunizations Up To Date First/Initial COVID19 Vaccinat: 06/2021 Second COVID19 Vaccination Alok: 06/2021 Third COVID19 Vaccination Date: 06/2021 Seasonal Allergies Seasonal Allergies: No Past Medical History Surgeries: Yes (R Masectomy, R Augmentation, ) Gallbladder, Hysterectomy, Orthopedic, Thyroidectomy Respiratory: No Cardiac: No (Lymphedema) Neurological: No 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 Disorders: No [employer] History: Hysterectomy Genitourinary: No Gastrointestinal: No Musculoskeletal: Yes (ARTHRITIS) Arthritis Endocrine: Yes Diabetes, Insulin dep HEENT: No Cancer: Yes Breast Did You Recieve Any Treatments: Yes What Type of Treatment Did You: Surgical Intervention Psychosocial: No Integumentary: No Blood Disorders: No Family Medical History Cancer Physical Exam Vital Signs Vital Signs - First Documented 12/03/21 01:18 Temp 36.2 Pulse 78 Resp 18 B/P (MAP) 138/71 (93) Pulse Ox 96 O2 Delivery Room Air Capillary Refill : Height, Weight, BMI Height: '" Weight: lbs. oz. kg; 45.54 BMI Method: General Appearance: Anxious, Chronically ill, Moderate Distress, Obese, Other (patient moaning and crying out repeatedly and not following commands or answering questions) HEENT: PERRL/EOMI, Moist Mucous Membranes Neck: Full Range of Motion, Supple Respiratory: Chest Non Tender, Decreased Breath Sounds, Rhonci; No Stridor Cardiovascular: Regular Rate, Rhythm, Normal Peripheral Pulses Gastrointestinal: Normal Bowel Sounds, No Pulsatile Mass, Non Tender, Soft Rectal: Deferred Extremity: Normal Capillary Refill, Normal Inspection, No Pedal Edema Neurologic/Psychiatric: Alert; No Oriented x3 (not answering questions or following commands) Skin: Warm/Dry, Pallor Progress/Results/Core Measures Suspected Sepsis SIRS Temperature: Pulse: Respiratory Rate: Laboratory Tests 12/03/21 01:24: White Blood Count 6.8 Blood Pressure / Mean: Laboratory Tests 12/03/21 01:24: Creatinine 1.39H, INR Comment 1.0, Platelet Count 329, Total Bilirubin 0.5 Results/Orders Lab Results Laboratory Tests Test 12/03/21 01:24 12/03/21 01:36 12/03/21 01:52 12/03/21 01:53 Range/Units White Blood Count 6.8 4.3-11.0 10^3/uL Red Blood Count 4.18 3.80-5.11 10^6/uL Hemoglobin 11.8 11.5-16.0 g/dL Hematocrit 38 35-52 % Mean Corpuscular Volume 91 80-99 fL Mean Corpuscular Hemoglobin 28 25-34 pg Mean Corpuscular Hemoglobin Concent 31 L 32-36 g/dL Red Cell Distribution Width 14.1 10.0-14.5 % Platelet Count 329 130-400 10^3/uL Mean Platelet Volume 9.4 9.0-12.2 fL Immature Granulocyte % (Auto) 0 % Neutrophils (%) (Auto) 77 H 42-75 % Lymphocytes (%) (Auto) 16 12-44 % Monocytes (%) (Auto) 5 0-12 % Eosinophils (%) (Auto) 1 0-10 % Basophils (%) (Auto) 1 0-10 % Neutrophils # (Auto) 5.2 1.8-7.8 10^3/uL Lymphocytes # (Auto) 1.1 1.0-4.0 10^3/uL Monocytes # (Auto) 0.4 0.0-1.0 10^3/uL Eosinophils # (Auto) 0.1 0.0-0.3 10^3/uL Basophils # (Auto) 0.0 0.0-0.1 10^3/uL Immature Granulocyte # (Auto) 0.0 0.0-0.1 10^3/uL Prothrombin Time 13.6 12.2-14.7 SEC INR Comment 1.0 0.8-1.4 Activated Partial Thromboplast Time 30 24-35 SEC Sodium Level 142 135-145 MMOL/L Potassium Level 3.9 3.6-5.0 MMOL/L Chloride Level 101 98-107 MMOL/L Carbon Dioxide Level 30 21-32 MMOL/L Anion Gap 11 5-14 MMOL/L Blood Urea Nitrogen 24 H 7-18 MG/DL Creatinine 1.39 H 0.60-1.30 MG/DL Estimat Glomerular Filtration Rate 41 BUN/Creatinine Ratio 17 Glucose Level 116 H 70-105 MG/DL Glucometer 104 133 H 132 H 70-110 MG/DL Calcium Level 8.9 8.5-10.1 MG/DL Corrected Calcium 9.4 8.5-10.1 MG/DL Total Bilirubin 0.5 0.1-1.0 MG/DL Aspartate Amino Transf (AST/SGOT) 31 5-34 U/L Alanine Aminotransferase (ALT/SGPT) 18 0-55 U/L Alkaline Phosphatase 230 H 40-136 U/L Troponin I < 0.30 <0.30 NG/ML C-Reactive Protein 3.61 H <0.50 MG/DL Pro-B-Type Natriuretic Peptide 6066.0 H <75.0 PG/ML Total Protein 7.0 6.4-8.2 GM/DL Albumin 3.4 3.2-4.5 GM/DL Urine Color YELLOW Urine Clarity CLOUDY Urine pH 6.0 5-9 Urine Specific [place] >=1.030 1.016-1.022 Urine Protein 3+ H NEGATIVE Urine Glucose (UA) NEGATIVE NEGATIVE Urine Ketones NEGATIVE NEGATIVE Urine Nitrite NEGATIVE NEGATIVE Urine Bilirubin NEGATIVE NEGATIVE Urine Urobilinogen 1.0 < = 1.0 MG/DL Urine Leukocyte Esterase NEGATIVE NEGATIVE Urine RBC (Auto) 2+ H NEGATIVE Urine RBC 2-5 H /HPF Urine WBC 0-2 /HPF Urine Squamous Epithelial Cells NONE /HPF Urine Crystals NONE /LPF Urine Bacteria TRACE /HPF Urine Casts PRESENT /LPF Urine Hyaline Casts 10-25 H /LPF Urine Mucus SMALL H /LPF Urine Culture Indicated NO Test 12/03/21 02:51 12/03/21 03:33 12/03/21 04:15 Range/Units Glucometer 120 H 120 H 139 H 70-110 MG/DL My Orders Orders - SILVIA KOEHLER MD Monitor-Rhythm Ecg Trace Only (12/03/21:) Ed Iv/Invasive Line Start (12/03/21) Cbc With Automated Diff (12/03/21) Comprehensive Metabolic Panel (12/03/21) Crp Fs (12/03/21:) Troponin I Fs (12/03/21) Protime With Inr (12/03/21) Partial Thromboplastin Time (12/03/21) Ekg Tracing (12/03/21) Ua Culture If Indicated (12/03/21) Perry Cath (12/03/21) Ct Head Wo (12/03/21) D50w (Emergency) Syringe (Dextrose 50% 5 (12/03/21:24) Chest 1 View Ap/Pa Only (12/03/21:28) Probnp Fs (12/03/21) Medications Given in ED Current Medications Medications Dose Ordered Sig/Francy Route Start Time Stop Time Status Last Admin Dose Admin Dextrose 50 ml STK-MED ONCE .ROUTE 12/03/21:24 12/03/21:27 DC 12/03/21:25 50 ML Vital Signs/I&O 12/03/21 01:18 Temp 36.2 Pulse 78 Resp 18 B/P (MAP) 138/71 (93) Pulse Ox 96 O2 Delivery Room Air Capillary Refill : Progress Note #1: Progress Note check labs and ECG with cardiac enzymes. With her low glucose will give an amp of D50 and see if that helps her mental status. check her urine with perry catheter and with her altered mental status will also check CT scan of her head to see if she has acute findings to account for her altered mental status. Progress Note #2: Progress Note Initial glucose was 104. Her labs appeared stable without acute significant abnormality. Her chest x-ray showed chronic findings but no acute infiltrate. She seemed stable with her glucose as it wa no dropping. CT scan came back as no acute process. Patient became more alert and interactive as she was going to CT scan. She had glucose 1 20-1 30 range. She remained in that range during the rest of her stay. She was able to take a little bit by mouth to try and help keep her sugar up. Her family stated she had a similar episode the week prior except that time it had dropped down to around 8 or 9 for her sugar. Then her glucose had responded to shot from the paramedics and she was able to avoid having to come to the emergency department. Today the glucagon shot did not work as well and she ended up needing to come to be seen. Discussed with patient and family that she would need to try and decrease her insulin and for starters going down by 5 units of her insulin dose until she checks with the regular doctor that manages her diabetes and they may make other adjustments.. Diagnostic Imaging Diagonstic Imaging: Xray Plain Films/CT/US/NM/MRI: chest Comments [facility], [place] NAME: RO [facility]OLENTINO [facility] REC#: [id number] PT STATUS: REG ER : 1950 PHYSICIAN: SILVIA KOEHLER MD ADMIT DATE: 12/03/21/ER FS Signed Date of Exam:12/03/21 CHEST 1 VIEW AP/PA ONLY Indication: Hyperglycemia, altered mental status Portable chest 2:15 AM There is cardiomegaly with pulmonary vascular congestion and interstitial edema. There are no effusions. IMPRESSION: Congestive heart failure Dictated by: Dictated on workstation # [id number] Dict: 12/03/21528 Trans: 12/03/21528 TCB [id number] Interpreted by: SARAH ISLAS MD Electronically signed by: SARAH ISLAS MD 12/03/21528 Reviewed: Reviewed by Me Diagonstic Imaging: CT Plain Films/CT/US/NM/MRI: head Comments [facility] [place], [place] NAME: RO TOLENTINO [facility] REC#: [id number] PT STATUS: REG ER : 1950 PHYSICIAN: SILVIA KOEHLER MD ADMIT DATE: 12/03/21/ER FS Signed Date of Exam:12/03/21 CT HEAD WO PROCEDURE: CT head without contrast. TECHNIQUE: Multiple contiguous axial images were obtained through the brain without the use of intravenous contrast. Auto Exposure Controls were utilized during the CT exam to meet ALARA standards for radiation dose reduction. INDICATION: Altered mental status The ventricles are normal in size, shape and position. There are no masses or hemorrhages. There are no extra-axial fluid collections. IMPRESSION: Negative CT head I agree with preliminary interpretation. Dictated by: Dictated on workstation # [id number] Dict: 12/03/21524 Trans: 12/03/21525 TCB [id number] Interpreted by: SARAH ISLAS MD Electronically signed by: SARAH ISLAS MD 12/03/21525 Departure Impression Primary Impression: Hypoglycemia due to type 1 diabetes mellitus Additional Impression: Altered mental status Qualified Codes: R40.1 - Stupor Disposition: 01 HOME, SELF-CARE Condition: Stable Departure-Patient Inst. Decision time for Depature: 04:29 Referrals: BERNADINE BARNARD MD (PCP/Family) Primary Care Physician Patient Instructions: Low Blood Sugar, Adult ED, Diabetes in Older Adults Add. Discharge Instructions: You should check with the clinic about decreasing your insulin doses since you have been having sugars dropping too low for you. In the meantime, it would be best to decrease each of your doses by 5 units until you can have more specific direction from Dr. Barnard and your primary providers about your Diabetes. SILVIA KOEHLER MD Dec 03, 2021 01:37
[2021-12-03 01:45] LABS: BASOPHILS % (AUTO) 1 % (0-10); EOSINOPHILS # (AUTO) 0.1 10^3/uL (0.0-0.3); EOSINOPHILS % (AUTO) 1 % (0-10); HEMATOCRIT 38 % (35-52); HEMOGLOBIN 11.8 g/dL (11.5-16.0); LYMPHOCYTES # (AUTO) 1.1 10^3/uL (1.0-4.0); LYMPHOCYTES % (AUTO) 16 % (12-44); MEAN CORPUSCULAR HEMOGLOBIN 28 pg (25-34); MEAN CORPUSCULAR HGB CONC 31 g/dL (32-36); MEAN CORPUSCULAR VOLUME 91 fL (80-99); MEAN PLATELET VOLUME 9.4 fL (9.0-12.2); MONOCYTES # (AUTO) 0.4 10^3/uL (0.0-1.0); MONOCYTES % (AUTO) 5 % (0-12); NEUTROPHILS # (AUTO) 5.2 10^3/uL (1.8-7.8); NEUTROPHILS % (AUTO) 77 % (42-75); PLATELET COUNT 329 10^3/uL (130-400); WHITE BLOOD COUNT 6.8 10^3/uL (4.3-11.0)
[2021-12-03 01:55] LABS: BILIRUBIN,URINE NEGATIVE (NEGATIVE); CLARITY,URINE CLOUDY; COLOR,URINE YELLOW; GLUCOSE, URINE (UA) NEGATIVE (NEGATIVE); KETONES,URINE NEGATIVE (NEGATIVE); LEUKOCYTE ESTERASE ,URINE NEGATIVE (NEGATIVE); NITRITE,URINE NEGATIVE (NEGATIVE); PROTEIN,URINE 3+ (NEGATIVE)
[2021-12-03 01:56] LABS: PROTHROMBIN TIME PATIENT 13.6 SEC (12.2-14.7)
[2021-12-03 02:02] LABS: BACTERIA,URINE TRACE /HPF; WBC,URINE 0-2 /HPF
[2021-12-03] MEDS ORDERED: D5W 1000 ML IV SOLUTION 1,000 ML IV STA (02:26)
[2021-12-03 02:29] LABS: SODIUM 142 MMOL/L (135-145)
[2021-12-03 02:30] LABS: ALANINE AMINOTRANSFERASE 18 U/L (0-55); ALBUMIN 3.4 GM/DL (3.2-4.5); ALKALINE PHOSPHATASE 230 U/L (40-136); BILIRUBIN,TOTAL 0.5 MG/DL (0.1-1.0); BUN/CREATININE RATIO 17; CALCIUM 8.9 MG/DL (8.5-10.1); CARBON DIOXIDE 30 MMOL/L (21-32); CHLORIDE 101 MMOL/L (98-107); CREATININE SERUM 1.39 MG/DL (0.60-1.30); GFR ESTIMATED 41; GLUCOSE 116 MG/DL (70-105); POTASSIUM 3.9 MMOL/L (3.6-5.0)
--- NOTE | 2021-12-03 05:27 | Diagnostic Imaging Report ---
PROCEDURE: CT head without contrast. TECHNIQUE: Multiple contiguous axial images were obtained through the brain without the use of intravenous contrast. Auto Exposure Controls were utilized during the CT exam to meet ALARA standards for radiation dose reduction. INDICATION: Altered mental status The ventricles are normal in size, shape and position. There are no masses or hemorrhages. There are no extra-axial fluid collections. IMPRESSION: Negative CT head I agree with preliminary interpretation. Dictated by: Dictated on workstation # [id number]
--- NOTE | 2021-12-03 05:31 | Diagnostic Imaging Report ---
Indication: Hyperglycemia, altered mental status Portable chest 2:15 AM There is cardiomegaly with pulmonary vascular congestion and interstitial edema. There are no effusions. IMPRESSION: Congestive heart failure Dictated by: Dictated on workstation # [id number]
[2021-12-04] MEDS ORDERED: CEPH500T PO (20:33)
== END 2021-12-03 06:00 | disposition home or self-care (01) ==
LOC: EDUNIT# 01:09 → ER FS 01:12
DX: E10.641 Type 1 diabetes mellitus with hypoglycemia with coma (principal); E89.0 Postprocedural hypothyroidism; E66.9 Obesity, unspecified; Z79.890 Hormone replacement therapy; Z79.899 Other long term (current) drug therapy
CPT/HCPCS: 36415; 51702; 70450; 71045; 80053; 81000; 82947; 83880; 84484; 85025; 85610; 85730; 86141; 93041

== ENCOUNTER 2021-12-04 18:30 | Emergency (ER) | payer MEDICARE, MEDICAID ==
[~2021-12-04] VITALS: Ht 160 cm; Wt 91.0 kg
--- NOTE | 2021-12-04 18:33 | ED General ---
General Stated Complaint: AMS History of Present Illness Date Seen by Provider: Dec 04, 2021 Time Seen by Provider: 18:33 Initial Comments 71-year-old female sent out because she "does not feel good" patient reports that she has not felt good for couple months. Patient was seen on 12/04/2021 due to hypoglycemia and concern for altered mental status. Patient today her symptoms are very vague. She reports that she has little bit of stomach discomfort has been there for a while. She denies any nausea, vomiting, fever, chills. Allergies and Home Medications Allergies Coded Allergies: adhesive tape (Unverified Allergy, Unknown, 12/24/19) codeine (Verified Allergy, Unknown, 12/24/19) morphine (Verified Allergy, Unknown, 12/24/19) penicillin G (Verified Allergy, Unknown, 12/24/19) Patient Home Medication List Home Medication List Reviewed: Yes Albuterol Sulfate (Proair Hfa) 1 Puff Puff, 2 PUFF IH Q4H PRN for SHORTNESS OF BREATH, (Reported) Entered as Reported by: BASHIR SALEH on 09/15/21 1043 Amlodipine Besylate (Amlodipine Besylate) 5 Mg Tablet, 10 MG PO DAILY Prescribed by: NUBIA FIELDS on 09/16/21 1204 Atorvastatin Calcium (Lipitor) 40 Mg Tablet, 40 MG PO HS Prescribed by: NUBIA FIELDS on 09/16/21 1204 Cefdinir (Cefdinir) 300 Mg Capsule, 300 MG PO BID Prescribed by: NUBIA FIELDS on 09/16/21 1204 Gabapentin (Neurontin) 300 Mg Capsule, 300 MG PO TID, (Reported) Entered as Reported by: MARELY BROWN on 06/19/20 1013 Insulin Aspart (Novolog) 100 Unit/1 Ml Susp, 14 UNITS SC TIDAC Prescribed by: NUBIA FIELDS on 09/16/21 1204 Insulin Determir (Levemir) 1,000 Units/10 Ml Soln, 20 UNIT SQ HS Prescribed by: NUBIA FIELDS on 09/16/21 1204 Levothyroxine Sodium (Levothyroxine Sodium) 112 Mcg Tablet, 112 MCG PO DAILY, (Reported) Entered as Reported by: BASHIR SALEH on 12/25/19 0914 Venlafaxine HCl (Venlafaxine HCl) 75 Mg Tab, 75 MG PO TIDWM, (Reported) Entered as Reported by: BASHIR SALEH on 12/25/19 0914 Review of Systems Review of Systems Constitutional: see HPI; No chills, No fever; malaise EENTM: no symptoms reported Respiratory: no symptoms reported Cardiovascular: no symptoms reported Gastrointestinal: abdominal pain; No nausea, No vomiting Genitourinary: no symptoms reported Musculoskeletal: no symptoms reported Skin: no symptoms reported Psychiatric/Neurological: No Symptoms Reported Hematologic/Lymphatic: See HPI, Other (Lymphedema, left arm from prior breast surgery) Past Rbyhfbf-Kwvdpe-Azouqh Hx Immunizations Up To Date First/Initial COVID19 Vaccinat: 06/2021 Second COVID19 Vaccination Alok: 06/2021 Third COVID19 Vaccination Date: 06/2021 Seasonal Allergies Seasonal Allergies: No Past Medical History Surgeries: Yes (R Masectomy, R Augmentation, ) Gallbladder, Hysterectomy, Orthopedic, Thyroidectomy Respiratory: No Cardiac: No (Lymphedema) Neurological: No 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 oz. kg; 45.54 BMI Method: General Appearance: No Apparent Distress, WD/WN, Chronically ill Neck: Normal Inspection, Non Tender Respiratory: Lungs Clear, Normal Breath Sounds Cardiovascular: Regular Rate, Rhythm Gastrointestinal: Soft; No Distended; Tenderness (Mild tenderness diffuse, nonspecific) Extremity: Normal Capillary Refill, Other (Chronic lymphedema left arm) Neurologic/Psychiatric: Alert, Oriented x3, Normal Mood/Affect Skin: Normal Color Progress/Results/Core Measures Suspected Sepsis SIRS Temperature: Pulse: Respiratory Rate: Laboratory Tests 12/04/21 19:00: White Blood Count 8.9 Blood Pressure / Mean: Laboratory Tests 12/04/21 19:00: Creatinine 1.52H, Platelet Count 297, Total Bilirubin 0.6 Results/Orders Lab Results Laboratory Tests Test 12/04/21 19:00 12/04/21 19:22 Range/Units White Blood Count 8.9 4.3-11.0 10^3/uL Red Blood Count 3.83 3.80-5.11 10^6/uL Hemoglobin 10.7 L 11.5-16.0 g/dL Hematocrit 34 L 35-52 % Mean Corpuscular Volume 89 80-99 fL Mean Corpuscular Hemoglobin 28 25-34 pg Mean Corpuscular Hemoglobin Concent 31 L 32-36 g/dL Red Cell Distribution Width 14.2 10.0-14.5 % Platelet Count 297 130-400 10^3/uL Mean Platelet Volume 9.4 9.0-12.2 fL Immature Granulocyte % (Auto) 0 % Neutrophils (%) (Auto) 71 42-75 % Lymphocytes (%) (Auto) 19 12-44 % Monocytes (%) (Auto) 7 0-12 % Eosinophils (%) (Auto) 3 0-10 % Basophils (%) (Auto) 1 0-10 % Neutrophils # (Auto) 6.3 1.8-7.8 X 10^3 Lymphocytes # (Auto) 1.7 1.0-4.0 X 10^3 Monocytes # (Auto) 0.6 0.0-1.0 X 10^3 Eosinophils # (Auto) 0.3 0.0-0.3 10^3/uL Basophils # (Auto) 0.1 0.0-0.1 10^3/uL Immature Granulocyte # (Auto) 0.0 0.0-0.1 10^3/uL Sodium Level 138 135-145 MMOL/L Potassium Level 4.0 3.6-5.0 MMOL/L Chloride Level 98 98-107 MMOL/L Carbon Dioxide Level 29 21-32 MMOL/L Anion Gap 11 5-14 MMOL/L Blood Urea Nitrogen 22 H 7-18 MG/DL Creatinine 1.52 H 0.60-1.30 MG/DL Estimat Glomerular Filtration Rate 37 BUN/Creatinine Ratio 14 Glucose Level 202 H 70-105 MG/DL Calcium Level 8.6 8.5-10.1 MG/DL Corrected Calcium 9.2 8.5-10.1 MG/DL Magnesium Level 2.0 1.6-2.4 MG/DL Total Bilirubin 0.6 0.1-1.0 MG/DL Aspartate Amino Transf (AST/SGOT) 29 5-34 U/L Alanine Aminotransferase (ALT/SGPT) 22 0-55 U/L Alkaline Phosphatase 248 H 40-136 U/L Troponin I < 0.30 <0.30 NG/ML C-Reactive Protein 2.69 H <0.50 MG/DL Total Protein 6.6 6.4-8.2 GM/DL Albumin 3.2 3.2-4.5 GM/DL Lipase 11 8-78 U/L Serum Alcohol < 10 <10 MG/DL Urine Color YELLOW Urine Clarity CLEAR Urine pH 6.0 5-9 Urine Specific [place] 1.025 H 1.016-1.022 Urine Protein 3+ H NEGATIVE Urine Glucose (UA) TRACE H NEGATIVE Urine Ketones NEGATIVE NEGATIVE Urine Nitrite NEGATIVE NEGATIVE Urine Bilirubin NEGATIVE NEGATIVE Urine Urobilinogen 0.2 < = 1.0 MG/DL Urine Leukocyte Esterase NEGATIVE NEGATIVE Urine RBC (Auto) 2+ H NEGATIVE Urine RBC 10-25 H /HPF Urine WBC NONE /HPF Urine Squamous Epithelial Cells 0-2 /HPF Urine Crystals NONE /LPF Urine Bacteria NEGATIVE /HPF Urine Casts PRESENT /LPF Urine Hyaline Casts 0-2 H /LPF Urine Granular Casts 0-2 H /LPF Urine Mucus LARGE H /LPF Urine Culture Indicated NO My Orders Orders - FAUST,SAE L DO Alcohol (12/04/21 18:33) Cbc With Automated Diff (12/04/21 18:33) Comprehensive Metabolic Panel (12/04/21 18:33) Lipase (12/04/21 18:33) Magnesium (12/04/21 18:33) Ua Culture If Indicated (12/04/21 18:33) Crp Fs (12/04/21 18:33) Troponin I Fs (12/04/21 18:33) Accucheck Stat ONCE (12/04/21 18:35) Ceftriaxone 1 Gram Iv (12/04/21 20:28) Vital Signs/I&O 12/04/21 18:30 Temp 35.7 Pulse 82 Resp 16 B/P (MAP) Pulse Ox 97 O2 Delivery Room Air Capillary Refill : Progress Note : Progress Note Patient's family arrived and reports concerns about some very minimal erythema of her right arm. They report that this is how she has had cellulitis in the past has started. I will give her a dose of Rocephin and started on Keflex. Patient family is very adamant that they cannot take care of her at home because she is too much for them. However this is not new has been going on for a week to at least a couple weeks if not longer. Discussed with them that I do not have any reason to admit her to the hospital at this time. Patient answers most questions appropriately with no concerns for any acute mental status changes. I also discussed with him that placement on a Tuesday night is almost impossible that they will need to follow-up with her primary care provider. They report that they have not been able to reach them in the last week. We did call both [facility] and [facility] facility. Both of them report due to staffing shortage there is no way that they can accept patient tonight or through the weekend. I discussed this with family that we did call and visit with both of them. They can reach out to both of them on Tuesday morning to review her information for possible admission next week to rehab/custodial facility. Patient's labs are consistent with her baseline labs. Patient's mentation is appropriate for home with no need for an acute hospitalization. Departure Impression Primary Impression: Cellulitis of left upper arm Additional Impression: Complaint of debility and malaise Disposition: 01 HOME, SELF-CARE Condition: Stable Departure-Patient Inst. Referrals: SELFBERNADINE MD (PCP/Family) Primary Care Physician Patient Instructions: Cellulitis (Skin Infection), Adult ED, Fatigue (DC) Add. Discharge Instructions: Please call primary care provider on Tuesday to discuss rehab facilities or long- term care facility You may call [facility] and [facility] for further discussion with them for possible admission Scripts Cephalexin (Cephalexin) 500 Mg Tablet 500 MG PO QID, #20 TAB 0 Refills Prov: SAE FAUST DO 12/04/21 SAE FAUST DO Dec 04, 2021 18:33
[2021-12-04 19:03] LABS: BASOPHILS # (AUTO) 0.1 10^3/uL (0.0-0.1); BASOPHILS % (AUTO) 1 % (0-10); EOSINOPHILS # (AUTO) 0.3 10^3/uL (0.0-0.3); EOSINOPHILS % (AUTO) 3 % (0-10); HEMATOCRIT 34 % (35-52); HEMOGLOBIN 10.7 g/dL (11.5-16.0); LYMPHOCYTES # (AUTO) 1.7 X 10^3 (1.0-4.0); LYMPHOCYTES % (AUTO) 19 % (12-44); MEAN CORPUSCULAR HEMOGLOBIN 28 pg (25-34); MEAN CORPUSCULAR HGB CONC 31 g/dL (32-36); MEAN CORPUSCULAR VOLUME 89 fL (80-99); MEAN PLATELET VOLUME 9.4 fL (9.0-12.2); MONOCYTES # (AUTO) 0.6 X 10^3 (0.0-1.0); MONOCYTES % (AUTO) 7 % (0-12); NEUTROPHILS # (AUTO) 6.3 X 10^3 (1.8-7.8); NEUTROPHILS % (AUTO) 71 % (42-75); PLATELET COUNT 297 10^3/uL (130-400); WHITE BLOOD COUNT 8.9 10^3/uL (4.3-11.0)
[2021-12-04 19:18] LABS: ALANINE AMINOTRANSFERASE 22 U/L (0-55); ALKALINE PHOSPHATASE 248 U/L (40-136); BILIRUBIN,TOTAL 0.6 MG/DL (0.1-1.0); BUN/CREATININE RATIO 14; CALCIUM 8.6 MG/DL (8.5-10.1); CARBON DIOXIDE 29 MMOL/L (21-32); CHLORIDE 98 MMOL/L (98-107); CREATININE SERUM 1.52 MG/DL (0.60-1.30); GFR ESTIMATED 37; GLUCOSE 202 MG/DL (70-105); SODIUM 138 MMOL/L (135-145); TOTAL PROTEIN 6.6 GM/DL (6.4-8.2)
[2021-12-04 19:19] LABS: ALBUMIN 3.2 GM/DL (3.2-4.5); LIPASE 11 U/L (8-78)
[2021-12-04 19:33] LABS: BACTERIA,URINE NEGATIVE /HPF; BILIRUBIN,URINE NEGATIVE (NEGATIVE); CLARITY,URINE CLEAR; COLOR,URINE YELLOW; GLUCOSE, URINE (UA) TRACE (NEGATIVE); GRANULAR CASTS,URINE 0-2 /LPF; HYALINE CASTS, URINE 0-2 /LPF; KETONES,URINE NEGATIVE (NEGATIVE); LEUKOCYTE ESTERASE ,URINE NEGATIVE (NEGATIVE); NITRITE,URINE NEGATIVE (NEGATIVE); PROTEIN,URINE 3+ (NEGATIVE); SQUAMOUS EPITHELIAL CELL,UR 0-2 /HPF
[2021-12-04] MEDS ORDERED: cefTRIAXone 1 GM PRE-MIX 50 ML IV STA (20:28)
[2021-12-04] MEDS ORDERED: CEPH500T PO (20:33)
[2021-12-04 20:59] VITALS: BP 142/86
== END 2021-12-04 20:59 | disposition home or self-care (01) ==
LOC: EDUNIT# 18:30 → ER FS 18:31
DX: L03.114 Cellulitis of left upper limb (principal); R53.81 Other malaise; E11.9 Type 2 diabetes mellitus without complications; Z79.4 Long term (current) use of insulin; Z88.0 Allergy status to penicillin
CPT/HCPCS: 36415; 51701; 80053; 81000; 83690; 83735; 84484; 85025; 86141; 99284; G0480; 80320

== ENCOUNTER 2022-01-15 02:03 | Emergency (ER) | payer MEDICARE, MEDICAID ==
[~2022-01-15] VITALS: Ht 160 cm; Wt 100.6 kg
[~2022-01-15 02:03] MED LIST changes: +CEPH500T PO
[2022-01-15 02:40] LABS: BASOPHILS % (AUTO) 1 % (0-10); EOSINOPHILS # (AUTO) 0.1 10^3/uL (0.0-0.3); EOSINOPHILS % (AUTO) 1 % (0-10); HEMATOCRIT 37 % (35-52); HEMOGLOBIN 11.3 g/dL (11.5-16.0); LYMPHOCYTES # (AUTO) 0.8 10^3/uL (1.0-4.0); LYMPHOCYTES % (AUTO) 11 % (12-44); MEAN CORPUSCULAR HEMOGLOBIN 27 pg (25-34); MEAN CORPUSCULAR HGB CONC 31 g/dL (32-36); MEAN CORPUSCULAR VOLUME 87 fL (80-99); MEAN PLATELET VOLUME 9.9 fL (9.0-12.2); MONOCYTES # (AUTO) 0.4 10^3/uL (0.0-1.0); MONOCYTES % (AUTO) 5 % (0-12); NEUTROPHILS # (AUTO) 6.4 10^3/uL (1.8-7.8); NEUTROPHILS % (AUTO) 82 % (42-75); PLATELET COUNT 319 10^3/uL (130-400); WHITE BLOOD COUNT 7.8 10^3/uL (4.3-11.0)
[2022-01-15] MEDS ORDERED: DEXTROSE 50% 50 ML (IMS) SYR ONE (02:42)
--- NOTE | 2022-01-15 02:42 | ED General ---
General Stated Complaint: HYPOGLYCEMIA Source of Information: Patient, EMS Exam Limitations: No Limitations History of Present Illness Date Seen by Provider: Jan 15, 2022 Time Seen by Provider: 02:08 Initial Comments 71-year-old female with past medical history of insulin dependent diabetes and chronic respiratory failure on 4L O2 coming in via EMS from home due to hypoglycemia and altered mental status. She has had numerous low blood sugars over the past month and a half. EMS last went to her house last week. Typically they are able to get her blood sugar elevated, she becomes back to normal, and they are able to leave. This time her blood sugar was 16 similar to last week. She continued to be confused after they gave her an amp of D50 with it raising to around 120. She got 20 units of long-acting insulin last night and 14 units of short acting with her meal reportedly. She says she did eat dinner, but did not eat lunch. She denies any chest pain, shortness of breath, abdominal pain, nausea, vomiting, diarrhea, fever, chills, weakness this focal, numbness, dysuria, diarrhea, headache, vision changes, or any other concerns. Allergies and Home Medications Allergies Coded Allergies: adhesive tape (Unverified Allergy, Unknown, 12/24/19) codeine (Verified Allergy, Unknown, 12/24/19) morphine (Verified Allergy, Unknown, 12/24/19) penicillin G (Verified Allergy, Unknown, 12/24/19) Patient Home Medication List Home Medication List Reviewed: Yes Albuterol Sulfate (Proair Hfa) 1 Puff Puff, 2 PUFF IH Q4H PRN for SHORTNESS OF BREATH, (Reported) Entered as Reported by: BASHIR SALEH on 09/15/21 1043 Amlodipine Besylate (Amlodipine Besylate) 5 Mg Tablet, 10 MG PO DAILY Prescribed by: NUBIA FIELDS on 09/16/21 1204 Atorvastatin Calcium (Lipitor) 40 Mg Tablet, 40 MG PO HS Prescribed by: NUBIA FIELDS on 09/16/21 1204 Cefdinir (Cefdinir) 300 Mg Capsule, 300 MG PO BID Prescribed by: NUBIA FIELDS on 09/16/21 1204 Cefdinir (Cefdinir) 300 Mg Capsule, 300 MG PO BID Prescribed by: ISABELLE SIGALA on 01/15/22 0333 Cephalexin (Cephalexin) 500 Mg Tablet, 500 MG PO QID Prescribed by: SAE FAUST on 12/04/212032 Gabapentin (Neurontin) 300 Mg Capsule, 300 MG PO TID, (Reported) Entered as Reported by: MARELY BROWN on 06/19/20 101 Insulin Aspart (Novolog) 100 Unit/1 Ml Susp, 14 UNITS SC TIDAC Prescribed by: NUBIA FIELDS on 09/16/21 120 Insulin Determir (Levemir) 1,000 Units/10 Ml Soln, 20 UNIT SQ HS Prescribed by: NUBIA FIELDS on 09/16/21 1204 Levothyroxine Sodium (Levothyroxine Sodium) 112 Mcg Tablet, 112 MCG PO DAILY, (Reported) Entered as Reported by: BASHIR SALEH on 12/25/19913 Venlafaxine HCl (Venlafaxine HCl) 75 Mg Tab, 75 MG PO TIDWM, (Reported) Entered as Reported by: BASHIR SALEH on 12/25/19913 Review of Systems Review of Systems Constitutional: No chills, No fever EENTM: No blurred vision Respiratory: No cough Cardiovascular: No chest pain Gastrointestinal: No abdominal pain Genitourinary: no symptoms reported Musculoskeletal: no symptoms reported Skin: no symptoms reported Psychiatric/Neurological: No Symptoms Reported Hematologic/Lymphatic: No Symptoms Reported Immunological/Allergic: no symptoms reported All Other Systems Reviewed Negative Unless Noted: Yes Past Eaihvvt-[id number]-Baqihr Hx Patient Social History Tobacco Use?: No Immunizations Up To Date First/Initial COVID19 Vaccinat: 06/2021 Second COVID19 Vaccination Alok: 06/2021 Third COVID19 Vaccination Date: 06/2021 Seasonal Allergies Seasonal Allergies: No Past Medical History Surgeries: Yes (R Masectomy, R Augmentation, ) Gallbladder, Hysterectomy, Orthopedic, Thyroidectomy Respiratory: No Cardiac: No (Lymphedema) Neurological: No 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 Disorders: No [employer] History: Hysterectomy Genitourinary: No Gastrointestinal: No Musculoskeletal: Yes (ARTHRITIS) Arthritis Endocrine: Yes Diabetes, Insulin dep HEENT: No Cancer: Yes Breast Did You Recieve Any Treatments: Yes What Type of Treatment Did You: Surgical Intervention Psychosocial: No Integumentary: No Blood Disorders: No Family Medical History Cancer Physical Exam Vital Signs Vital Signs - First Documented 01/15/22 01/15/22 02:10 03:33 Temp 37.0 Pulse 77 Resp 22 B/P (MAP) 162/86 Pulse Ox 93 O2 Delivery Nasal Cannula O2 Flow Rate 2.00 Capillary Refill : Height, Weight, BMI Height: '" Weight: lbs. oz. kg; 35.00 BMI Method: General Appearance: No Apparent Distress, WD/WN Eyes: Bilateral Eye Normal Inspection, Bilateral Eye PERRL, Bilateral Eye EOMI HEENT: PERRL/EOMI, Normal ENT Inspection, Pharynx Normal Neck: Full Range of Motion, Normal Inspection, Non Tender, Supple Respiratory: Chest Non Tender, Lungs Clear, Normal Breath Sounds, No Accessory Muscle Use, No Respiratory Distress Cardiovascular: Regular Rate, Rhythm, No Edema, Normal Peripheral Pulses Gastrointestinal: Normal Bowel Sounds, Non Tender, Soft; No Distended, No Guarding Back: Normal Inspection, No CVA Tenderness, No Vertebral Tenderness Extremity: Normal Capillary Refill, Normal Inspection, Normal Range of Motion, Non Tender, No Calf Tenderness, No Pedal Edema Neurologic/Psychiatric: Alert, Oriented x3, No Motor/Sensory Deficits, Normal Mood/Affect, certified prosthetist II-XII Norm as Tested, Other (normal finger to nose) Skin: Normal Color, Warm/Dry Lymphatic: No Adenopathy Progress/Results/Core Measures Suspected Sepsis SIRS Temperature: Pulse: Respiratory Rate: Laboratory Tests 01/15/22 02:35: White Blood Count 7.8 Blood Pressure / Mean: Laboratory Tests 01/15/22 02:35: Creatinine 1.56H, Platelet Count 319, Total Bilirubin 0.4 Results/Orders Lab Results Laboratory Tests Test 01/15/22 02:27 01/15/22 02:35 01/15/22 02:41 01/15/22 02:55 Range/Units Glucometer 64 L 59 *L 70-110 MG/DL White Blood Count 7.8 4.3-11.0 10^3/uL Red Blood Count 4.21 3.80-5.11 10^6/uL Hemoglobin 11.3 L 11.5-16.0 g/dL Hematocrit 37 35-52 % Mean Corpuscular Volume 87 80-99 fL Mean Corpuscular Hemoglobin 27 25-34 pg Mean Corpuscular Hemoglobin Concent 31 L 32-36 g/dL Red Cell Distribution Width 15.1 H 10.0-14.5 % Platelet Count 319 130-400 10^3/uL Mean Platelet Volume 9.9 9.0-12.2 fL Immature Granulocyte % (Auto) 0 % Neutrophils (%) (Auto) 82 H 42-75 % Lymphocytes (%) (Auto) 11 L 12-44 % Monocytes (%) (Auto) 5 0-12 % Eosinophils (%) (Auto) 1 0-10 % Basophils (%) (Auto) 1 0-10 % Neutrophils # (Auto) 6.4 1.8-7.8 10^3/uL Lymphocytes # (Auto) 0.8 L 1.0-4.0 10^3/uL Monocytes # (Auto) 0.4 0.0-1.0 10^3/uL Eosinophils # (Auto) 0.1 0.0-0.3 10^3/uL Basophils # (Auto) 0.0 0.0-0.1 10^3/uL Immature Granulocyte # (Auto) 0.0 0.0-0.1 10^3/uL Sodium Level 143 135-145 MMOL/L Potassium Level 4.7 3.6-5.0 MMOL/L Chloride Level 105 98-107 MMOL/L Carbon Dioxide Level 28 21-32 MMOL/L Anion Gap 10 5-14 MMOL/L Blood Urea Nitrogen 28 H 7-18 MG/DL Creatinine 1.56 H 0.60-1.30 MG/DL Estimat Glomerular Filtration Rate 36 BUN/Creatinine Ratio 18 Glucose Level 66 L 70-105 MG/DL Calcium Level 9.4 8.5-10.1 MG/DL Corrected Calcium 9.5 8.5-10.1 MG/DL Total Bilirubin 0.4 0.1-1.0 MG/DL Aspartate Amino Transf (AST/SGOT) 26 5-34 U/L Alanine Aminotransferase (ALT/SGPT) 18 0-55 U/L Alkaline Phosphatase 234 H 40-136 U/L Troponin I < 0.30 <0.30 NG/ML Pro-B-Type Natriuretic Peptide 7024.0 H <75.0 PG/ML Total Protein 7.4 6.4-8.2 GM/DL Albumin 3.9 3.2-4.5 GM/DL Serum Alcohol < 10 <10 MG/DL Urine Color YELLOW Urine Clarity CLEAR Urine pH 6.0 5-9 Urine Specific [place] >=1.030 1.016-1.022 Urine Protein 3+ H NEGATIVE Urine Glucose (UA) NEGATIVE NEGATIVE Urine Ketones NEGATIVE NEGATIVE Urine Nitrite NEGATIVE NEGATIVE Urine Bilirubin NEGATIVE NEGATIVE Urine Urobilinogen 0.2 < = 1.0 MG/DL Urine Leukocyte Esterase NEGATIVE NEGATIVE Urine RBC (Auto) 1+ H NEGATIVE Urine RBC 2-5 H /HPF Urine WBC 2-5 /HPF Urine Squamous Epithelial Cells 0-2 /HPF Urine Crystals NONE /LPF Urine Bacteria MODERATE H /HPF Urine Casts PRESENT /LPF Urine Hyaline Casts 5-10 H /LPF Urine Mucus NEGATIVE /LPF Urine Culture Indicated YES Urine Opiates Screen NEGATIVE NEGATIVE Urine Oxycodone Screen NEGATIVE NEGATIVE Urine Methadone Screen NEGATIVE NEGATIVE Urine Propoxyphene Screen NEGATIVE NEGATIVE Urine Barbiturates Screen NEGATIVE NEGATIVE Ur Tricyclic Antidepressants Screen NEGATIVE NEGATIVE Urine Phencyclidine Screen NEGATIVE NEGATIVE Urine Amphetamines Screen NEGATIVE NEGATIVE Urine Methamphetamines Screen NEGATIVE NEGATIVE Urine Benzodiazepines Screen NEGATIVE NEGATIVE Urine Cocaine Screen NEGATIVE NEGATIVE Urine Cannabinoids Screen NEGATIVE NEGATIVE Test 01/15/22 03:39 Range/Units Glucometer 132 H 70-110 MG/DL My Orders Orders - ISABELLE SIGALA MD Alcohol (01/15/22 02:23) Cbc With Automated Diff (01/15/22 02:23) Comprehensive Metabolic Panel (01/15/22 02:23) Drug Screen Stat (Urine) (01/15/22 02:23) Ua Culture If Indicated (01/15/22 02:23) Probnp Fs (01/15/22 02:23) Troponin I Fs (01/15/22 02:23) Chest 1 View Ap/Pa Only (01/15/22 02:23) Ekg Tracing (01/15/22 02:37) Catheter(Urinary) Insert & Ass 03,15 (01/15/22 02:37) D50w (Emergency) Syringe (Dextrose 50% 5 (01/15/22 02:45) D50w (Emergency) Syringe (Dextrose 50% 5 (01/15/22 02:42) Ed Iv/Invasive Line Start (01/15/22 02:59) Woody Cath (01/15/22 02:59) Urine Culture (01/15/22 02:55) Furosemide Injection (Lasix Injection) (01/15/22 03:30) Cefdinir Capsule (Omnicef Capsule) (01/15/22 03:30) Accucheck Stat ONCE (01/15/22 03:34) Medications Given in ED Current Medications Medications Dose Ordered Sig/Francy Route Start Time Stop Time Status Last Admin Dose Admin Cefdinir 300 mg ONCE ONCE PO 01/15/22 03:30 01/15/22 03:31 DC 01/15/22 03:32 300 MG Dextrose 50 ml ONCE ONCE IV 01/15/22 02:45 01/15/22 02:46 DC 01/15/22 02:48 50 ML Furosemide 20 mg ONCE ONCE IVP 01/15/22 03:30 01/15/22 03:31 DC 01/15/22 03:32 20 MG Vital Signs/I&O 01/15/22 01/15/22 02:10 03:33 Temp 37.0 Pulse 77 80 Resp 22 22 B/P (MAP) 162/86 Pulse Ox 93 93 O2 Delivery Nasal Cannula Nasal Cannula O2 Flow Rate 2.00 2.00 Capillary Refill : Progress Note : Progress Note 71-year-old female with above history coming in altered due to low blood sugar. ABCs were intact, vital stable on presentation, and she is alert and oriented but slow to answer questions. Neuro exam nonfocal. Initial glucose here that was repeated after EMS gave the D50 was 61. Had such a significant drop already, that we repeated it 10 minutes later and it was in the 50s. We then gave her an amp of D50 followed by some juice and crackers with peanut butter which she tolerated. An IV was placed and basic labs obtained including cardiac biomarkers, urinalysis, UDS, EKG, chest x-ray. She says she did not fall or hit her head. I discussed the case with her who says that she really did not eat much dinner compared to usual, and then got her normal dose of insulin. I discussed at length that it important she eats 3 solid meals a day with a good protein source. I discussed the need to dose adjust her insulin and lowered by at least 5 units for now given she is had numerous lows over the past month. Labs were significant for hemoglobin around her baseline, creatinine around her baseline, negative troponin, elevated proBNP which has been in the past. Chest x-ray on my interpretation with some congestive features likely volume overloaded with heart failure, but superimposed pneumonia impossible to differentiate. She is chronically hypoxic from an infection months ago per the . I will give her a dose of Lasix here as well as start her on a course of cefdinir. Repeat glucose stable and her mental status remained normal. She is tolerating p.o. here. I discussed all this with the patient and the , and I would like her to follow-up with her primary care doctor this week. She was then discharged home in stable condition with strict return precautions. Glucose at time of discharge was 132. ECG Initial ECG Impression Date: Jan 15, 2022 Initial ECG Impression Time: 02:38 Initial ECG Rate: 76 Initial ECG Rhythm: Normal Sinus Comment Narrow QRS, normal axis, no significant ST changes, there does appear to be some shiver artifact with her being cold from just being outside, QTC 522 Departure Impression Primary Impression: Hypoglycemia Additional Impressions: Volume overload Qualified Codes: E87.70 - Fluid overload, unspecified Pneumonia Qualified Codes: J18.9 - Pneumonia, unspecified organism Disposition: 01 HOME, SELF-CARE Condition: Stable Departure-Patient Inst. Decision time for Depature: 03:40 Referrals: BERNADINE LUNDBERG MD (PCP/Family) Primary Care Physician Patient Instructions: Low Blood Sugar, Adult (DC) Add. Discharge Instructions: You are seen in the emergency department for low blood sugar. All of your other labs are at their baseline and your vitals are otherwise normal. I want you to use 5 units less insulin with each meal and 5 units less with your nighttime insulin until you follow-up with your regular doctor to adjust her dosing. Be sure to eat a good dinner before bed with protein like peanut butter, cheese, deli meats, or many other options. I would set an alarm to have her blood sugar checked in middle the night until she stops having low blood sugars. Her chest xray looked like she had too much fluid on her lungs which is typically from heart failure. Talk with her doctor about potentially starting a water pill such as lasix. She looks like she could have pneumonia as well so I started her on an antibiotic for the next week. Scripts Cefdinir (Cefdinir) 300 Mg Capsule 300 MG PO BID for 7 Days, #14 CAP 0 Refills Prov: ISABELLE SIGALA MD 01/15/22 ISABELLE SIGALA MD Jan 15, 2022 02:41
[2022-01-15] MEDS ORDERED: DEXTROSE 50% 50 ML (IMS) SYR IV ONE (02:45)
[2022-01-15 02:59] LABS: BILIRUBIN,URINE NEGATIVE (NEGATIVE); CLARITY,URINE CLEAR; COLOR,URINE YELLOW; GLUCOSE, URINE (UA) NEGATIVE (NEGATIVE); KETONES,URINE NEGATIVE (NEGATIVE); LEUKOCYTE ESTERASE ,URINE NEGATIVE (NEGATIVE); NITRITE,URINE NEGATIVE (NEGATIVE); PROTEIN,URINE 3+ (NEGATIVE)
[2022-01-15 03:09] LABS: BACTERIA,URINE MODERATE /HPF; SQUAMOUS EPITHELIAL CELL,UR 0-2 /HPF
[2022-01-15 03:10] LABS: AMPHETAMINE SCREEN, URINE NEGATIVE (NEGATIVE); BARBITURATE SCREEN URINE NEGATIVE (NEGATIVE); BENZODIAZEPINES SCREEN URINE NEGATIVE (NEGATIVE); CANNABINOID SCREEN, URINE NEGATIVE (NEGATIVE); COCAINE SCREEN URINE NEGATIVE (NEGATIVE); METHADONE STAT NEGATIVE (NEGATIVE); METHAMPHETAMINE SCREEN URINE S NEGATIVE (NEGATIVE); OPIATE SCREEN URINE NEGATIVE (NEGATIVE); OXYCODONE STAT NEGATIVE (NEGATIVE); PROPOXYPHENE STAT NEGATIVE (NEGATIVE); TRICYCLIC ANTIDEPRESSANTS SCRE NEGATIVE (NEGATIVE)
[2022-01-15 03:13] LABS: ALANINE AMINOTRANSFERASE 18 U/L (0-55); ALKALINE PHOSPHATASE 234 U/L (40-136); BILIRUBIN,TOTAL 0.4 MG/DL (0.1-1.0); BUN/CREATININE RATIO 18; CALCIUM 9.4 MG/DL (8.5-10.1); CARBON DIOXIDE 28 MMOL/L (21-32); CHLORIDE 105 MMOL/L (98-107); CREATININE SERUM 1.56 MG/DL (0.60-1.30); GFR ESTIMATED 36; GLUCOSE 66 MG/DL (70-105); POTASSIUM 4.7 MMOL/L (3.6-5.0); SODIUM 143 MMOL/L (135-145); TOTAL PROTEIN 7.4 GM/DL (6.4-8.2)
[2022-01-15 03:14] LABS: ALBUMIN 3.9 GM/DL (3.2-4.5)
[2022-01-15] MEDS ORDERED: FUROSEMIDE 40 MG/4 ML INJ (LASIX) IVP ONE (03:30)
[2022-01-15] MEDS ORDERED: CEFDINIR 300 MG (OMNICEF) CAP PO ONE (03:30)
[2022-01-15 03:33] VITALS: BP 162/86
[2022-01-15] MEDS ORDERED: CEFD300C3 PO (03:33)
--- NOTE | 2022-01-15 06:26 | Diagnostic Imaging Report ---
INDICATION: Low blood sugar EXAMINATION: Chest 01/14/2022 COMPARISON: 12/03/21 FINDINGS: There is cardiomegaly and pulmonary vascular congestion. Atelectases versus infiltrate noted in the left lung base. No effusions. No pneumothorax. IMPRESSION: 1. Pulmonary vascular congestion 2. Left base atelectasis versus infiltrate. Dictated by: Dictated on workstation # [id number]
== END 2022-01-15 03:36 | disposition home or self-care (01) ==
LOC: EDUNIT# 02:03 → ER FS 02:12
DX: E11.649 Type 2 diabetes mellitus with hypoglycemia without coma (principal); J18.9 Pneumonia, unspecified organism; E87.70 Fluid overload, unspecified; J96.10 Chronic respiratory failure, unspecified whether with hypoxia or hypercapnia; Z99.81 Dependence on supplemental oxygen; Z79.4 Long term (current) use of insulin
CPT/HCPCS: 36415; 51702; 71045; 80053; 80306; 81000; 82947; 83880; 84484; 85025; 87088; 93005; 99284; G0480; 80320

== ENCOUNTER 2022-04-17 22:56 | Inpatient (IN) | payer MEDICARE, MEDICAID ==
[~2022-04-17] VITALS: Ht 160 cm; Wt 108.1 kg
[2022-04-17 23:30] LABS: BASOPHILS % (AUTO) 1 % (0-10); EOSINOPHILS # (AUTO) 0.2 10^3/uL (0.0-0.3); EOSINOPHILS % (AUTO) 2 % (0-10); HEMATOCRIT 34 % (35-52); HEMOGLOBIN 10.6 g/dL (11.5-16.0); LYMPHOCYTES # (AUTO) 1.5 X 10^3 (1.0-4.0); LYMPHOCYTES % (AUTO) 20 % (12-44); MEAN CORPUSCULAR HEMOGLOBIN 27 pg (25-34); MEAN CORPUSCULAR HGB CONC 31 g/dL (32-36); MEAN CORPUSCULAR VOLUME 86 fL (80-99); MEAN PLATELET VOLUME 10.8 fL (9.0-12.2); MONOCYTES # (AUTO) 0.3 X 10^3 (0.0-1.0); MONOCYTES % (AUTO) 4 % (0-12); NEUTROPHILS # (AUTO) 5.6 X 10^3 (1.8-7.8); NEUTROPHILS % (AUTO) 73 % (42-75); PLATELET COUNT 346 10^3/uL (130-400); WHITE BLOOD COUNT 7.6 10^3/uL (4.3-11.0)
[2022-04-17 23:35] LABS: CREATININE SERUM 1.49 MG/DL (0.60-1.30); POTASSIUM 3.6 MMOL/L (3.6-5.0)
[2022-04-17 23:36] LABS: ALBUMIN 3.3 GM/DL (3.2-4.5); BILIRUBIN,TOTAL 0.4 MG/DL (0.1-1.0); CALCIUM 8.7 MG/DL (8.5-10.1); TOTAL PROTEIN 6.6 GM/DL (6.4-8.2)
[2022-04-18] MEDS ORDERED: inSUlin (REGULAR) HUMAN 1 UNIT/0.01 ML (CHARGE PER UNIT) IV ONE
--- NOTE | 2022-04-18 00:23 | ED General ---
General Chief Complaint: Overdose Stated Complaint: ACCIDENTAL OD Nursing Triage Note: Pt accidentally took too much of her medication. Reports she took 900mg Gabapentin, 37.5mg of Effexor, 10mg of Ambien, 3units of long acting Insulin, and 9units of short acting Insulin. Pt denies SI or HI and stated "they lady who usually does my meds is on vacation and she had them setting out for me." Pt denies any pain or complaints. Source of Information: Patient, EMS, Family Exam Limitations: Other (Poor history) History of Present Illness Date Seen by Provider: Apr 17, 2022 Time Seen by Provider: 23:03 Initial Comments 71-year-old female patient with history of diabetes mellitus on insulin, hy perlipidemia, hypothyroidism and diabetic neuropathy brought in by EMS because of accidental overdose. Patient states she forgot to take her afternoon 3 pills medication and took them with her night medication and her found about this and called 911. EMS reported that patient had 900 mg of gabapentin and 37.5 mg of Effexor and 10 mg of Ambien and 3 units of long-acting insulin and 9 units of short-acting insulin. Patient had blood sugar of more than 550 reported by EMS and patient states her blood sugar is elevated for the last 2 weeks. Patient is on 2 L of home oxygen and has chronic lower leg edema. Patient denies dizziness, blurred vision, nausea and vomiting, abdominal pain, chest pain, new shortness of breath, focal neurodeficit. Allergies and Home Medications Allergies Coded Allergies: ceftriaxone (Verified Allergy, Intermediate, N/V/D, 04/18/22) adhesive tape (Unverified Allergy, Unknown, 12/24/19) codeine (Verified Allergy, Unknown, 12/24/19) morphine (Verified Allergy, Unknown, 12/24/19) penicillin G (Verified Allergy, Unknown, 12/24/19) Patient Home Medication List Home Medication List Reviewed: Yes Albuterol Sulfate (Proair Hfa) 1 Puff Puff, 2 PUFF IH Q4H PRN for SHORTNESS OF BREATH, (Reported) Entered as Reported by: BASHIR SALEH on 09/15/21 1043 Amlodipine Besylate (Amlodipine Besylate) 5 Mg Tablet, 10 MG PO DAILY Prescribed by: NUBIA FIELDS on 09/16/21 1204 Atorvastatin Calcium (Lipitor) 40 Mg Tablet, 40 MG PO HS Prescribed by: NUBIA FIELDS on 09/16/21 120 Cefdinir (Cefdinir) 300 Mg Capsule, 300 MG PO BID Prescribed by: NUBIA FIELDS on 09/16/21 120 Cefdinir (Cefdinir) 300 Mg Capsule, 300 MG PO BID Prescribed by: ISABELLE SIGALA on 01/15/22 033 Cephalexin (Cephalexin) 500 Mg Tablet, 500 MG PO QID Prescribed by: SAE FAUST on 12/04/212032 Gabapentin (Neurontin) 300 Mg Capsule, 300 MG PO TID, (Reported) Entered as Reported by: MARELY BROWN on 06/19/20 101 Insulin Aspart (Novolog) 100 Unit/1 Ml Susp, 14 UNITS SC TIDAC Prescribed by: NUBIA FIELDS on 09/16/21 120 Insulin Determir (Levemir) 1,000 Units/10 Ml Soln, 20 UNIT SQ HS Prescribed by: NUBIA FIELDS on 09/16/21 120 Levothyroxine Sodium (Levothyroxine Sodium) 112 Mcg Tablet, 112 MCG PO DAILY, (Reported) Entered as Reported by: BASHIR SALEH on 12/25/19913 Venlafaxine HCl (Venlafaxine HCl) 75 Mg Tab, 75 MG PO TIDWM, (Reported) Entered as Reported by: BASHIR SALEH on 12/25/19913 Review of Systems Review of Systems Constitutional: no symptoms reported EENTM: no symptoms reported Respiratory: no symptoms reported Cardiovascular: edema Gastrointestinal: no symptoms reported Genitourinary: no symptoms reported Musculoskeletal: no symptoms reported Skin: no symptoms reported Psychiatric/Neurological: No Symptoms Reported Hematologic/Lymphatic: No Symptoms Reported Immunological/Allergic: no symptoms reported All Other Systems Reviewed Negative Unless Noted: Yes Past Xqizwgd-Bevfyf-Bwzmja Hx Patient Social History Tobacco Use?: No Use of E-Cig and/or Vaping dev: No Substance use?: No Alcohol Use?: No Pt feels they are or have been: No Immunizations Up To Date First/Initial COVID19 Vaccinat: Moderna Second COVID19 Vaccination Alok: 06/2021 Third COVID19 Vaccination Date: 06/2021 Seasonal Allergies Seasonal Allergies: No Past Medical History Surgery/Hospitalization HX: IDDM Surgeries: Yes (R Masectomy, R Augmentation, ) Gallbladder, Hysterectomy, Orthopedic, Thyroidectomy Respiratory: No Cardiac: No (Lymphedema) Neurological: No 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 Disorders: No 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 oz. kg; 40.00 BMI Method: General Appearance: No Apparent Distress, Obese Eyes: Bilateral Eye Normal Inspection, Bilateral Eye PERRL HEENT: PERRL/EOMI, TMs Normal, Normal ENT Inspection Neck: Full Range of Motion, Normal Inspection, Non Tender Respiratory: Chest Non Tender, No Accessory Muscle Use, No Respiratory Distress, Rhonci Cardiovascular: Regular Rate, Rhythm Gastrointestinal: Normal Bowel Sounds, No Organomegaly Back: Normal Inspection Extremity: Pedal Edema (3+ bilateral lower extremity edema, left upper extremity lymphedema) Neurologic/Psychiatric: Alert, No Motor/Sensory Deficits Progress/Results/Core Measures Suspected Sepsis SIRS Temperature: Pulse: 79 Respiratory Rate: 20 Laboratory Tests 04/17/22 23:07: White Blood Count 7.6 Blood Pressure 185 /66 Mean: 105 Laboratory Tests 04/17/22 23:07: Creatinine 1.49H, Platelet Count 346, Total Bilirubin 0.4 Results/Orders Lab Results Laboratory Tests Test 04/17/22 23:07 04/18/22 00:05 04/18/22 00:41 04/18/22 01:33 Range/Units White Blood Count 7.6 4.3-11.0 10^3/uL Red Blood Count 3.96 3.80-5.11 10^6/uL Hemoglobin 10.6 L 11.5-16.0 g/dL Hematocrit 34 L 35-52 % Mean Corpuscular Volume 86 80-99 fL Mean Corpuscular Hemoglobin 27 25-34 pg Mean Corpuscular Hemoglobin Concent 31 L 32-36 g/dL Red Cell Distribution Width 14.9 H 10.0-14.5 % Platelet Count 346 130-400 10^3/uL Mean Platelet Volume 10.8 9.0-12.2 fL Immature Granulocyte % (Auto) 0 % Neutrophils (%) (Auto) 73 42-75 % Lymphocytes (%) (Auto) 20 12-44 % Monocytes (%) (Auto) 4 0-12 % Eosinophils (%) (Auto) 2 0-10 % Basophils (%) (Auto) 1 0-10 % Neutrophils # (Auto) 5.6 1.8-7.8 X 10^3 Lymphocytes # (Auto) 1.5 1.0-4.0 X 10^3 Monocytes # (Auto) 0.3 0.0-1.0 X 10^3 Eosinophils # (Auto) 0.2 0.0-0.3 10^3/uL Basophils # (Auto) 0.0 0.0-0.1 10^3/uL Immature Granulocyte # (Auto) 0.0 0.0-0.1 10^3/uL Sodium Level 137 135-145 MMOL/L Potassium Level 3.6 3.6-5.0 MMOL/L Chloride Level 92 L 98-107 MMOL/L Carbon Dioxide Level 32 21-32 MMOL/L Anion Gap 13 5-14 MMOL/L Blood Urea Nitrogen 24 H 7-18 MG/DL Creatinine 1.49 H 0.60-1.30 MG/DL Estimat Glomerular Filtration Rate 38 BUN/Creatinine Ratio 16 Glucose Level 505 *H 70-105 MG/DL Calcium Level 8.7 8.5-10.1 MG/DL Corrected Calcium 9.3 8.5-10.1 MG/DL Total Bilirubin 0.4 0.1-1.0 MG/DL Aspartate Amino Transf (AST/SGOT) 11 5-34 U/L Alanine Aminotransferase (ALT/SGPT) 7 0-55 U/L Alkaline Phosphatase 150 H 40-136 U/L Troponin I < 0.30 <0.30 NG/ML Pro-B-Type Natriuretic Peptide 23136.0 H <75.0 PG/ML Total Protein 6.6 6.4-8.2 GM/DL Albumin 3.3 3.2-4.5 GM/DL Urine Color YELLOW Urine Clarity CLOUDY Urine pH 7.0 5-9 Urine Specific [place] 1.020 1.016-1.022 Urine Protein 2+ H NEGATIVE Urine Glucose (UA) 3+ H NEGATIVE Urine Ketones NEGATIVE NEGATIVE Urine Nitrite POSITIVE H NEGATIVE Urine Bilirubin NEGATIVE NEGATIVE Urine Urobilinogen 0.2 < = 1.0 MG/DL Urine Leukocyte Esterase NEGATIVE NEGATIVE Urine RBC (Auto) 3+ H NEGATIVE Urine RBC 5-10 H /HPF Urine WBC TNTC H /HPF Urine Squamous Epithelial Cells NONE /HPF Urine Crystals NONE /LPF Urine Bacteria LARGE H /HPF Urine Casts NONE /LPF Urine Mucus NEGATIVE /LPF Urine Culture Indicated YES Glucometer 306 H 234 H 70-110 MG/DL Test 04/18/22 02:59 Range/Units Glucometer 187 H 70-110 MG/DL My Orders Orders - ALE SHAW MD Cbc With Automated Diff (04/17/22 23:23) Chest 1 View Ap/Pa Only (04/17/22 23:23) Ekg Tracing (04/17/22 23:23) Comprehensive Metabolic Panel (04/17/22 23:23) O2 (04/17/22 23:23) Monitor-Rhythm Ecg Trace Only (04/17/22 23:23) Ed Iv/Invasive Line Start (04/17/22 23:23) Troponin I Fs (04/17/22 23:23) Probnp Fs (04/17/22 23:23) Insulin (Regular) Human (Novolin R (Per (04/18/22 00:00) Ua Culture If Indicated (04/17/22 23:48) Urinalysis (04/18/22 00:05) Urine Culture (04/18/22 00:05) Ceftriaxone 1 Gm Pre-Mix (Rocephin 1 Gm (04/18/22 01:00) Ondansetron Injection (Zofran Injectio (04/18/22 01:30) Ondansetron Injection (Zofran Injectio (04/18/22 01:25) Medications Given in ED Current Medications Medications Dose Ordered Sig/Francy Route Start Time Stop Time Status Last Admin Dose Admin Ceftriaxone Sodium/Dextrose 50 ml @ 100 mls/hr ONCE ONCE IV 04/18/22 01:00 04/18/22 01:29 DC 04/18/22 01:09 100 MLS/HR Insulin Human Regular 10 unit ONCE ONCE IV 04/18/22 00:00 04/18/22 00:01 DC 04/18/22 00:00 10 UNIT Ondansetron HCl 4 mg ONCE ONCE IVP 04/18/22 01:30 04/18/22 01:31 DC 04/18/22 01:35 4 MG Ondansetron HCl 4 mg STK-MED ONCE .ROUTE 04/18/22 01:25 04/18/22 01:30 DC 04/18/22 01:30 4 MG Vital Signs/I&O 04/17/22 04/17/22 04/17/22 04/18/22 23:00 23:00 23:01 00:00 Temp 36.4 Pulse 79 73 Resp 20 17 B/P (MAP) 185/66 (105) 156/122 Pulse Ox 98 98 97 O2 Delivery Nasal Cannula Nasal Cannula Nasal Cannula Nasal Cannula O2 Flow Rate 2.00 2.00 2.00 2.00 04/18/22 04/18/22 04/18/22 04/18/22 00:30 01:00 01:40 02:15 Pulse 71 72 79 70 Resp 19 21 22 20 B/P (MAP) 145/101 162/66 120/66 115/47 Pulse Ox 96 98 95 95 O2 Delivery Nasal Cannula Nasal Cannula Nasal Cannula Nasal Cannula O2 Flow Rate 2.00 2.00 3.00 3.00 04/18/22 02:45 Pulse 71 Resp 22 B/P (MAP) 134/60 Pulse Ox 98 O2 Delivery Nasal Cannula O2 Flow Rate 3.00 Capillary Refill : Less Than 3 Seconds Blood Pressure Mean: 105 Progress Note : Progress Note Evaluation of patient in ER showed 71-year-old female patient brought in by EMS because of accidental overdose of medication. Patient had nighttime home medication with afternoon time medication at the same time and her was concerned. Patient had blood sugar of more than 550 and labs showed blood sugar of 145 and treated with 10 units of IV insulin and blood sugar gradually decreased to 306. Dr. Patel informed at 0017 and recommended to admit patient to medical bed if the blood sugar is less than 300. Starting sliding scale. P atient had UTI and treated with Rocephin but she developed nausea and dry heaving and one episode of bowel movement at the same time and he stated she had the same problem previously with Rocephin but forgot to tell us about that. Rocephin was added to the list of allergy medication. ECG Initial ECG Impression Date: Apr 17, 2022 Initial ECG Impression Time: 23:09 Comment EKG interpreted by me. EKG at 2309 showed normal sinus rhythm at rate of 77 with multiple artifact, IL interval of 184 and QT interval of 419, normal axis, nonspecific ST and T wave abnormalities, no acute ST and T wave elevation. Diagnostic Imaging Diagonstic Imaging: Xray (1 view chest x-ray) Plain Films/CT/US/NM/MRI: chest Comments 1 view chest x-ray interpreted by me and showed increase of vascular marking. Departure Communication (Admissions) Time/Spoke to Admitting Phy: 00:20 Dr. Patel accepted admission to ICU and recommended to start non-DKA insulin drip and put bridge order for her admission. 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 Additional Impressions: Accidental overdose Qualified Codes: T50.901A - Poisoning by unspecified drugs, medicaments and biological substances, accidental (unintentional), initial encounter CHF (congestive heart failure) Qualified Codes: I50.9 - Heart failure, unspecified Lower extremity edema Morbid obesity Anemia Qualified Codes: D64.9 - Anemia, unspecified Urinary tract infection Qualified Codes: N39.0 - Urinary tract infection, site not specified; R31.9 - Hematuria, unspecified Disposition: ADMITTED INPATIENT Condition: Improved Admissions Decision to Admit Reason: Admit from ER (Trauma) Decision to Admit/Date: Apr 18, 2022 Time/Decision to Admit Time: 00:23 Transfer Transfer Reason: Exceeds level of care Departure-Patient Inst. Referrals: BERNADINE LUNDBERG MD (PCP/Family) Primary Care Physician Patient Instructions: ALCOHOL AND SUBSTANCE ABUSE ALE SHAW MD Apr 18, 2022 00:23
[2022-04-18 00:45] LABS: BACTERIA,URINE LARGE /HPF; BILIRUBIN,URINE NEGATIVE (NEGATIVE); CLARITY,URINE CLOUDY; COLOR,URINE YELLOW; GLUCOSE, URINE (UA) 3+ (NEGATIVE); KETONES,URINE NEGATIVE (NEGATIVE); LEUKOCYTE ESTERASE ,URINE NEGATIVE (NEGATIVE); NITRITE,URINE POSITIVE (NEGATIVE); PROTEIN,URINE 2+ (NEGATIVE); WBC,URINE TNTC /HPF
[2022-04-18] MEDS ORDERED: cefTRIAXone 1 GM PRE-MIX 50 ML IV ONE (01:00)
[2022-04-18] MEDS ORDERED: ONDANSETRON 4 MG/2 ML (SDV) Z0FRAN ONE (01:25)
[2022-04-18] MEDS ORDERED: ONDANSETRON 4 MG/2 ML (SDV) Z0FRAN IVP ONE (01:30)
[2022-04-18] MEDS: inSUlin ASPART (NovoLOG) 1 UNIT/0.01 ML (CHARGE PER UNIT) SC SCH ×4 (05:52→21:01)
[2022-04-18] MEDS: CATHETER FLUSH 10 ML SYR IVP SCH ×3 (05:52→21:28)
[2022-04-18] MEDS ORDERED: CATHETER FLUSH 10 ML SYR IVP PRN (06:00)
--- NOTE | 2022-04-18 06:54 | Diagnostic Imaging Report ---
INDICATION: Accidental overdose. COMPARISON: 01/15/2022. FINDINGS: The heart size is within normal limits. There is borderline distention of the central vascularity but this has improved from the prior exam. There is haziness to the right costophrenic angle which may reflect a tiny right pleural effusion. There is some mild perihilar and basilar partial atelectasis but, overall, the lungs have cleared when compared to the prior exam. IMPRESSION: There are mild zones of atelectasis, equivocal small right pleural effusion, and borderline mild venous congestion. The findings are improved when compared to the study of 3 months ago. Dictated by: Dictated on workstation # [id number]
--- NOTE | 2022-04-18 07:22 | History & Physical-Hospitalist ---
History of Present Illness HPI/Chief Complaint Chief complaint: Nonpurposeful overdose History present illness: This is a 71-year-old female history of cardiac murmur and cardiology she does not know who it is who presented to the ER with accidental overdose of morning and nighttime meds with insulin. She was found to have blood sugar of 550 given IV insulin and sugars improved but cardiology evaluated her to have congestive heart failure and I appreciate his expertise. Source: patient Exam Limitations: no limitations Date Seen 04/18/22 Time Seen by a Provider: 11:00 Attending Physician Patricio Barnard MD PCP Admitting Physician: Letitia Patel DO Attending Physician: Letitia Patel DO Referring Physician Date of Admission Apr 18, 2022 at 04:35 Home Medications & Allergies Home Medications Reviewed patient Home Medication Reconciliation performed by pharmacy medication reconciliations auto electrical technician and/or nursing. Patients Allergies have been reviewed. Allergies Allergies Coded Allergies ceftriaxone (Verified Allergy, Intermediate, N/V/D, 04/18/22) adhesive tape (Unverified Allergy, Unknown, 12/24/19) codeine (Verified Allergy, Unknown, 12/24/19) morphine (Verified Allergy, Unknown, 12/24/19) penicillin G (Verified Allergy, Unknown, 12/24/19) Past Cijbjle-Vdxerl-Bankah Hx Patient Social History Marrital Status: single Employed/Student: retired Tobacco Use?: No Smoking Status: Never a Smoker Use of E-Cig and/or Vaping dev: No Substance use?: No Alcohol Use?: No Pt feels they are or have been: No Immunizations Up To Date Date of Influenza Vaccine: Sep 28, 2019 First/Initial COVID19 Vaccinat: Moderna Second COVID19 Vaccination Alok: Moderna Seasonal Allergies Seasonal Allergies: No Current Status Communicates: Verbally Primary Language: Urdu Preferred Spoken Language: Urdu Is interpretation needed?: No Implanted or Applied Medical D: None Past Medical History Surgeries: Gallbladder, Hysterectomy, Orthopedic, 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 Arthritis Diabetes, Insulin dep Breast Did You Recieve Any Treatments: Yes What Type of Treatment Did You: Surgical Intervention Blood Disorders: No PMHx: Left breast cancer treated with chemo in the Diabetes HTN HLD SurgHx: Left breast removal/reconstruction Right breast reduction Cholecystectomy Family Medical History Cancer Review of Systems Constitutional: see HPI, malaise, weakness EENTM: no symptoms reported Respiratory: dyspnea on exertion Cardiovascular: no symptoms reported Gastrointestinal: no symptoms reported Genitourinary: no symptoms reported Musculoskeletal: no symptoms reported Skin: no symptoms reported Psychiatric/Neurological: No Symptoms Reported Physical Exam Physical Exam Vital Signs Vital Signs - First Documented Capillary Refill : Less Than 3 Seconds Height, Weight, BMI Height: '" Weight: lbs. oz. kg; 40.23 BMI Method: General Appearance: No Apparent Distress, Chronically ill, Obese Eyes: Right Eye Normal Inspection, Right Eye PERRL HEENT: PERRL/EOMI, Normal ENT Inspection, Pharynx Normal, Moist Mucous Membrane s Neck: Full Range of Motion, Normal Inspection, Non Tender Respiratory: Chest Non Tender, Lungs Clear, Normal Breath Sounds, No Accessory Muscle Use, No Respiratory Distress Cardiovascular: Regular Rate, Rhythm, No Edema, No Gallop, No JVD, Normal Peripheral Pulses, Systolic Murmur Gastrointestinal: Normal Bowel Sounds, No Organomegaly, No Pulsatile Mass, Non Tender, Soft Back: Normal Inspection, No CVA Tenderness, No Vertebral Tenderness Extremity: Normal Capillary Refill, Normal Inspection, Normal Range of Motion, Non Tender, No Calf Tenderness, No Pedal Edema Neurologic/Psychiatric: Alert, Oriented x3, No Motor/Sensory Deficits, Normal Mood/Affect Skin: Normal Color, Warm/Dry Lymphatic: No Adenopathy Results Results/Procedures Labs Laboratory Tests 04/17/22 23:07 04/18/22 08:00 Patient resulted labs reviewed. Assessment/Plan Admission Diagnosis Assessment: OD CHF Edema DM OOC Plan: Monitor closely Hakeem Flores consult Admission Status: Inpatient Order (span 2 midnights) Reason for Inpatient Admission: OD with CHF Diagnosis/Problems Diagnosis/Problems (1) Diabetes mellitus with hyperglycemia, with long-term current use of insulin Status: Acute (2) Dehydration Status: Resolved Resolution Date/Time: 09/15/21 @ 15:01 LETITIA PATEL DO Apr 18, 2022 07:22
[2022-04-18] MEDS ORDERED: ACETAMINOPHEN 325 MG TABLET PO PRN (07:30)
[2022-04-18] MEDS ORDERED: ONDANSETRON 4 MG/2 ML (SDV) Z0FRAN IVP PRN (07:30)
[2022-04-18] MEDS ORDERED: diphenhydrAMINE 25 MG TAB (BENADRYL) PO PRN (07:30)
[2022-04-18] MEDS ORDERED: HYDROcodone/APAP 5 MG/325 MG (LORTAB) TAB PO PRN (07:30)
[2022-04-18] MEDS ORDERED: CALCIUM CARBONATE 500 MG (TUMS) TAB.CHEW PO PRN (07:30)
[2022-04-18] MEDS ORDERED: LOPERAMIDE 2 MG (IMODIUM) TABLET PO PRN (07:30)
[2022-04-18 07:31] VITALS: BP 154/66
[2022-04-18 08:13] LABS: BASOPHILS % (AUTO) 0 % (0-10); EOSINOPHILS # (AUTO) 0.2 10^3/uL (0.0-0.3); EOSINOPHILS % (AUTO) 2 % (0-10); HEMATOCRIT 32 % (35-52); LYMPHOCYTES # (AUTO) 1.1 10^3/uL (1.0-4.0); LYMPHOCYTES % (AUTO) 13 % (12-44); MEAN CORPUSCULAR HEMOGLOBIN 27 pg (25-34); MEAN CORPUSCULAR HGB CONC 31 g/dL (32-36); MEAN CORPUSCULAR VOLUME 89 fL (80-99); MEAN PLATELET VOLUME 10.8 fL (9.0-12.2); MONOCYTES # (AUTO) 0.5 10^3/uL (0.0-1.0); MONOCYTES % (AUTO) 6 % (0-12); NEUTROPHILS # (AUTO) 7.1 10^3/uL (1.8-7.8); NEUTROPHILS % (AUTO) 80 % (42-75); PLATELET COUNT 344 10^3/uL (130-400)
[2022-04-18 08:35] LABS: ALBUMIN 2.8 GM/DL (3.2-4.5); BILIRUBIN,TOTAL 0.5 MG/DL (0.1-1.0); CALCIUM 8.5 MG/DL (8.5-10.1); CREATININE SERUM 1.57 MG/DL (0.60-1.30); TOTAL PROTEIN 5.8 GM/DL (6.4-8.2)
[2022-04-18] MEDS: ENOXAPARIN 40 MG/0.4 ML (LOVENOX) SYR SC SCH (09:02)
[2022-04-18] MEDS: SENNA W/DOCUSATE (SENOKOT S) TABLET PO SCH ×2 (09:03→21:28)
[2022-04-18] MEDS: polyethylene glycoL POWDER 17 GM (MIRALAX) PACK PO SCH ×2 (09:03→19:18)
[2022-04-18] MEDS: DOCUSATE SODIUM 100 MG (COLACE) CAP PO SCH ×2 (09:03→21:28)
[2022-04-18] MEDS: CEFEPIME INJECTION 1,000 MG in NS (IVPB) 50 ML IV SCH ×2 (09:03→21:28)
[2022-04-18 11:10] VITALS: BP 173/70
[2022-04-18 16:39] VITALS: BP 150/67
[2022-04-18] MEDS: MELATONIN 3 MG TABLET PO PRN (21:28)
[2022-04-18] MEDS: ALPRAZolam 0.25 MG (XANAX) TAB PO PRN (21:28)
[2022-04-19] VITALS: BP 147/70
[2022-04-19] MEDS: CATHETER FLUSH 10 ML SYR IVP SCH ×3 (05:55→22:45)
[2022-04-19] MEDS: inSUlin ASPART (NovoLOG) 1 UNIT/0.01 ML (CHARGE PER UNIT) SC SCH ×4 (05:56→22:44)
--- NOTE | 2022-04-19 06:07 | Progress Note - Hospitalist ---
Subjective HPI/CC On Admission Date Seen by Provider: Apr 19, 2022 Time Seen by Provider: 09:30 Chief complaint: Nonpurposeful overdose History present illness: This is a 71-year-old female history of cardiac murmur and cardiology she does not know who it is who presented to the ER with accidental overdose of morning and nighttime meds with insulin. She was found to have blood sugar of 550 given IV insulin and sugars improved but cardiology evaluated her to have congestive heart failure and I appreciate his expertise. Subjective/Events-last exam Patient doing a little better Up in chair today Blood sugars high so will initiate long-acting insulin Reports she had not had a bowel movement but she had a large 1 last night but she did not even recall that I told social work program coordinator she needs half-way placement Review of Systems General: Fatigue, Malaise Neurological: Confusion Objective Exam Vital Signs Vital Signs Date Time Temp Pulse Resp B/P (MAP) Pulse Ox O2 Delivery O2 Flow Rate FiO2 04/19/22 15:15 36.7 78 18 174/76 (108) 98 Nasal Cannula 2.00 Capillary Refill : Less Than 3 Seconds General Appearance: No Apparent Distress, WD/WN, Chronically ill Respiratory: Lungs Clear Cardiovascular: Regular Rate, Rhythm, No Edema, Systolic Murmur Neurologic/Psychiatric: Alert, Oriented x3, Disoriented Results/Procedures Lab Laboratory Tests 04/19/22 06:46 Patient resulted labs reviewed. Assessment/Plan Assessment and Plan Assess & Plan/Chief Complaint Assessment: OD CHF Edema DM OOC Memory loss Anxiety Depression Debility Plan: Monitor closely Lasix Dr Flores consult Insulin Monitor closely Diagnosis/Problems Diagnosis/Problems (1) Diabetes mellitus with hyperglycemia, with long-term current use of insulin Status: Acute (2) Dehydration Status: Resolved Resolution Date/Time: 09/15/21 @ 15:01 JESÚS MCCLOUD DO Apr 19, 2022 06:07
[2022-04-19 07:21] LABS: BASOPHILS # (AUTO) 0.1 10^3/uL (0.0-0.1); BASOPHILS % (AUTO) 1 % (0-10); EOSINOPHILS # (AUTO) 0.4 10^3/uL (0.0-0.3); EOSINOPHILS % (AUTO) 6 % (0-10); HEMATOCRIT 32 % (35-52); HEMOGLOBIN 9.4 g/dL (11.5-16.0); LYMPHOCYTES # (AUTO) 1.2 10^3/uL (1.0-4.0); LYMPHOCYTES % (AUTO) 20 % (12-44); MEAN CORPUSCULAR HEMOGLOBIN 27 pg (25-34); MEAN CORPUSCULAR HGB CONC 30 g/dL (32-36); MEAN CORPUSCULAR VOLUME 92 fL (80-99); MEAN PLATELET VOLUME 10.9 fL (9.0-12.2); MONOCYTES # (AUTO) 0.4 10^3/uL (0.0-1.0); MONOCYTES % (AUTO) 7 % (0-12); NEUTROPHILS # (AUTO) 3.9 10^3/uL (1.8-7.8); NEUTROPHILS % (AUTO) 65 % (42-75); PLATELET COUNT 324 10^3/uL (130-400); WHITE BLOOD COUNT 6.1 10^3/uL (4.3-11.0)
[2022-04-19 07:46] LABS: ALBUMIN 2.6 GM/DL (3.2-4.5); BILIRUBIN,TOTAL 0.4 MG/DL (0.1-1.0); CALCIUM 8.6 MG/DL (8.5-10.1); CREATININE SERUM 1.65 MG/DL (0.60-1.30); POTASSIUM 3.8 MMOL/L (3.6-5.0); TOTAL PROTEIN 5.5 GM/DL (6.4-8.2)
[2022-04-19 08:14] VITALS: BP 180/74
--- NOTE | 2022-04-19 09:04 | Physical Therapy Evaluation ---
PT Evaluation-General Medical Diagnosis Admission Date Apr 18, 2022 at 04:35 Medical Diagnosis: overdose Onset Date: Apr 18, 2022 Therapy Diagnosis Therapy Diagnosis: debility/weakness Precautions Precautions/Isolations: Fall Prevention, Standard Precautions Referral Physician: Amanda Reason for Referral: Evaluation/Treatment Medical History Pertinent Medical History: Arthritis, DM, Heart Failure, HTN, Neuropathy Current History EMS secondary to accidental OD Reviewed History: Yes Social History Home: Single Level Current Living Status: Other Family Entry Into Home: Ramp Prior Prior Level of Function SCALE: Activities may be completed with or without assistive devices. 9-Ohxlcivjdi-fytjgjb completes the activity by him/herself with no assistance from a helper. 5-Set-up or Clean-up Assistance-helper sets up or cleans up; patient completes activity. [place] assists only prior to or following the activity. 4-Supervision or Touching Assistance-helper provides verbal cues and/or t ouching/steadying and/or contact guard assistance as patient completes activity. Assistance may be provided throughout the activity or intermittently. 3-Partial/Moderate Assistance-helper does LESS THAN HALF the effort. [place] lifts, holds or supports trunk or limbs, but provides less than half the effort. 2-Substantial/Maximal Assistance-helper does MORE THAN HALF the effort. [place] lifts or holds trunk or limbs and provides more than half the effort. 2-Sirlkbucg-vgqcbn does ALL the effort. Patient does none of the effort to complete the activity. Or, the assistance of 2 or more helpers is required for the patient to complete the activity. If activity was not attempted, code reason: 7-Patient Refused. 9-Not Applicable-not attempted and the patient did not perform the activity before the current illness, exacerbation or injury. 10-Not Attempted due to Environmental Limitations-(lack of equipment, weather restraints, etc.). 88-Not Attempted due to Medical Conditions or Safety Concerns. Bed Mobility: 4 Transfers (B,C,W/C): 4 Gait: 4 Indoor Mobility (Ambulation): Needed Some Help Stairs: Not Applicalbe Prior Devices Use: Walker patient reports she has assistance with all mobility at home PLOF PT Evaluation-Current Subjective Patient agrees to PT. Objective Patient Orientation: Normal For Age ROM/Strength ROM Lower Extremities bilateral LE WFL Strength Lower Extremities 3+/5 grossly bilateral LE Integumentary/Posture Bowel Incontinence: No Posture WFL Neuromuscular (Tone, Coordination, Reflexes) grossly intact Sensory Vision: Wears Glasses Hearing: Functional Transfers Lying to Sitting/Side of Bed(Q: 4 Sit to Stand (QC): 4 Chair/Nwp-bu-Vvwui Xfer(QC): 4 Gait Does the Patient Walk?: Yes Mode of Locomotion: Walk Anticipated Mode of Locomotion: Walk Walk 10 feet (QC): 4 Walk 50 ft with 2 Turns(QC): 4 Walk 150 ft (QC): 4 Distance: 150' Gait Assistive Device: FWW Comments/Gait Description slow, steady, functional gait sequence Balance Sitting Static: Normal Sitting Dynamic: Normal Standing Static: Good Standing Dynamic: Good Assessment/Needs 71 y.o. female, will be seen short term by skilled PT to address functional strength and mobility to improve current LOF. Rehab Potential: Fair PT Snf Goals Associate Veterinarian Goals PT Associate Veterinarian Goals Time Frame: May 01, 2022 Roll Left & Right (QC): 5 Sit to Lying (QC): 5 Lying-Sitting on Side/Bed(QC): 5 Sit to Stand (QC): 5 Chair/Ylb-wz-Sjuxy Xfer(QC): 5 Walk 10 feet (QC): 5 Walk 50ft with 2 Turns (QC): 5 Walk 150 ft (QC): 5 PT Plan Problem List Problem List: Activity Tolerance, Functional Strength, Safety, Balance, Gait, Transfer, Bed Mobility Treatment/Plan Treatment Plan: Continue Plan of Care Treatment Plan: Bed Mobility, Education, Functional Activity Tasha, Functional Strength, Gait, Safety, Therapeutic Exercise, Transfers Treatment Duration: May 01, 2022 Frequency: 6 times per week Estimated Hrs Per Day: .25 hour per day Patient and/or Family Agrees t: Yes Time/GCodes Time In: 811 Time Out: 825 Total Billed Treatment Time: 14 Total Billed Treatment 1 visit EVMod 14 min SAVANA GIVENS PT Apr 19, 2022 09:04
[2022-04-19] MEDS ORDERED: SENNA W/DOCUSATE (SENOKOT S) TABLET PO ONE (09:30)
[2022-04-19] MEDS ORDERED: LACTULOSE SYRUP 10GM/15ML (ENULOSE) 30ML UDC PO ONE (09:30)
[2022-04-19] MEDS ORDERED: LACTULOSE SYRUP 10GM/15ML (ENULOSE) 30ML UDC PO NR (09:35)
[2022-04-19] MEDS: polyethylene glycoL POWDER 17 GM (MIRALAX) PACK PO SCH (09:35)
[2022-04-19] MEDS: SENNA W/DOCUSATE (SENOKOT S) TABLET PO SCH ×2 (09:36→20:01)
[2022-04-19] MEDS: ENOXAPARIN 40 MG/0.4 ML (LOVENOX) SYR SC SCH (09:42)
[2022-04-19] MEDS: DOCUSATE SODIUM 100 MG (COLACE) CAP PO SCH ×2 (09:43→20:01)
[2022-04-19] MEDS ORDERED: SENNA W/DOCUSATE (SENOKOT S) TABLET PO NR (10:00)
--- NOTE | 2022-04-19 10:36 | Consultation-Cardiology ---
HPI-Cardiology Cardiology Consultation Date of Consultation 04/19/22 Date of Admission Time Seen by Provider: 09:30 Indication: HPI Patient is a 71 y/o female with history of aortic stenosis, HTN, HLP, DM. Presented to the ER with accidental overdose. Patient reports that the individual that usually helps her with her home meds was out of town this week. Patient states she forgot to take her afternoon meds, so took them with her evening meds, and patient's became worried and called EMS. She denies any chest pain, dyspnea, dizziness or lightheadedness. Reports chronic peripheral edema. States she used to follow with cardiology in [place] in the remote past, but was unsure why. Denies any history of CAD or CHF. Has used continuous O2 at home since having pneumonia in August 2021. Home Medications & Allergies Allergies: Coded Allergies: ceftriaxone (Verified Allergy, Intermediate, N/V/D, 04/18/22) adhesive tape (Unverified Allergy, Unknown, 12/24/19) codeine (Verified Allergy, Unknown, 12/24/19) morphine (Verified Allergy, Unknown, 12/24/19) penicillin G (Verified Allergy, Unknown, 12/24/19) Home Medication List Reviewed: Yes LCA-Gnrtyu-Vitbzj Hx Patient Social History Marital Status: Employed/Student: retired Smoking Status: Never a Smoker 2nd Hand Smoke Exposure: No Recent Hopitalizations: No Have you traveled recently?: No Alcohol Use?: No Immunizations Up To Date Date of Influenza Vaccine: Sep 28, 2019 Past Medical History , HTN, HLP, DM, COPD oxygen dependent. Family Medical History Significant Family History: Cancer Review of Systems-General Review of Systems Constitutional: see HPI, malaise, weakness EENTM: see HPI, no symptoms reported; No blurred vision, No double vision Respiratory: see HPI; No cough; dyspnea on exertion Cardiovascular: see HPI; No chest pain; edema; No Hx of Intervention, No palpitations, No syncope, No vascular heart diseas Gastrointestinal: no symptoms reported Genitourinary: no symptoms reported Musculoskeletal: no symptoms reported Skin: no symptoms reported Psychiatric/Neurological: No Symptoms Reported All Other Systems Reviewed Negative Unless Noted: Yes Reviewed Test Results Reviewed Test Results Lab Laboratory Tests 04/18/22 15:30: Glucometer 150H 04/18/22 20:43: Glucometer 162H 04/19/22 05:09: Glucometer 298H 04/19/22 06:46: White Blood Count 6.1, Red Blood Count 3.47L, Hemoglobin 9.4L, Hematocrit 32L, Mean Corpuscular Volume 92, Mean Corpuscular Hemoglobin 27, Mean Corpuscular Hemoglobin Concent 30L, Red Cell Distribution Width 14.8H, Platelet Count 324, Mean Platelet Volume 10.9, Immature Granulocyte % (Auto) 1, Neutrophils (%) (Auto) 65, Lymphocytes (%) (Auto) 20, Monocytes (%) (Auto) 7, Eosinophils (%) (Auto) 6, Basophils (%) (Auto) 1, Neutrophils # (Auto) 3.9, Lymphocytes # (Auto) 1.2, Monocytes # (Auto) 0.4, Eosinophils # (Auto) 0.4H, Basophils # (Auto) 0.1, Immature Granulocyte # (Auto) 0.0, Sodium Level 141, Potassium Level 3.8, Chloride Level 97L, Carbon Dioxide Level 32, Anion Gap 12, Blood Urea Nitrogen 23H, Creatinine 1.65H, Estimat Glomerular Filtration Rate 33, BUN/Creatinine Ratio 14, Glucose Level 318H, Calcium Level 8.6, Corrected Calcium 9.7, Total Bilirubin 0.4, Aspartate Amino Transf (AST/SGOT) 14, Alanine Aminotransferase (ALT/SGPT) 9, Alkaline Phosphatase 107, Total Protein 5.5L, Albumin 2.6L Microbiology 04/18/22 Urine Culture - Preliminary, Resulted Probable E.coli ECG Impression ECG Initial ECG Rhythm: Normal Sinus Physical Exam Physical Exam Vital Signs Vital Signs - First Documented Capillary Refill : Less Than 3 Seconds Height, Weight, BMI Height: '" Weight: lbs. oz. kg; 40.23 BMI Method: General Appearance: No Apparent Distress, Chronically ill, Obese Eyes: Right Eye Normal Inspection, Right Eye PERRL HEENT: PERRL/EOMI, Normal ENT Inspection, Pharynx Normal, Moist Mucous Membranes Neck: Full Range of Motion, Normal Inspection, Non Tender Respiratory: Chest Non Tender, Lungs Clear, Normal Breath Sounds, No Accessory Muscle Use, No Respiratory Distress Cardiovascular: Regular Rate, Rhythm, No Gallop, No JVD, Normal Peripheral Pulses, Systolic Murmur, Other (+1-2 edema BLE) Gastrointestinal: Normal Bowel Sounds, No Organomegaly, No Pulsatile Mass, Non Tender, Soft Back: Normal Inspection, No CVA Tenderness, No Vertebral Tenderness Extremity: Normal Capillary Refill, Normal Inspection, Normal Range of Motion, Non Tender, No Calf Tenderness, Pedal Edema Neurologic/Psychiatric: Alert, Oriented x3, No Motor/Sensory Deficits, Normal Mood/Affect Skin: Normal Color, Warm/Dry Lymphatic: No Adenopathy A/P-Cardiology Admission Diagnosis Accidental overdose HTN HLP Assessment/Plan Accidental overdose of insulin and gabapentin- Followed and managed by primary care physician continue to monitor. Aortic stenosis- 2D Echo done March 2021 showing EF 50-55%, mild LA dilatation 4.23cm, mitral valve sclerosis without stenosis, mild to moderate TR. Moderate Aortic stenosis with peak gradient 26mmHg, mean gradient 14mmHg, calculated valve area 1.06cm. I will reevaluate 2D Echo Elevated proBNP, mild dyspnea on exertion. I will evaluate 2D Echo, plan for st ress test in the a.m. Hypertension, poor control. Patient was on amlodipine 5 mg as an outpatient which will be restarted, adding losartan 50 mg daily Continue to monitor blood pressure and renal function. HLP, maintained on statin as outpatient DM, management per medical services. Hypothyroidism COPD, oxygen dependent. Patient reports has been on continuous oxygen since having pneumonia in August 2021. Obesity CKD, management per medical services Diabetic neuropathy Chronic peripheral edema, diurese as tolerated. Multiple risk factors for underlying CAD, planning for stress test. Thank you for allowing us to participate in the management of Ms. Lopez. This is Claudia Macias PA-C, as a scribe for Dr. Flores. Patient was seen and evaluated with Claudia, I interviewed and examined the patient. In summary patient was admitted for accidental overdose. She has aortic valve stenosis discovered on March 2021. No recent cardiac work-up. She denied any chest pain but admits having dyspnea on exertion. No palpitation Blood pressure is stable, restarting home medication I am planning to evaluate stress test and echocardiogram. CLAUDIA BEAN Apr 19, 2022 10:36 BILL FLORES MD Apr 19, 2022 12:14
--- NOTE | 2022-04-19 11:39 | Occupational Therapy Eval ---
OT Evaluation-General/PLF Medical Diagnosis Admission Date Apr 18, 2022 at 04:35 Medical Diagnosis: overdose Onset Date: Apr 18, 2022 Therapy Diagnosis Therapy Diagnosis: decreased ADL status Precautions Precautions/Isolations: Fall Prevention, Standard Precautions Referral Physician: Amanda Cervantes Reason: Evaluation/Treatment Medical History Pertinent Medical History: Arthritis, DM, Heart Failure, HTN, Neuropathy Additional Medical History Arthritis, DM, heart failure, HTN, neuropathy, and lymphedema Current History EMS secondary to accidental OD Social History Home: Single Level Current Living Status: Other Family ( and granddaughter) Entry Into Home: Ramp ADL-Prior Level of Function SCALE: Activities may be completed with or without assistive devices. 0-Hcteykimth-aiqwczb completes the activity by him/herself with no assistance from a helper. 5-Set-up or Clean-up Assistance-helper sets up or cleans up; patient completes activity. [place] assists only prior to or following the activity. 4-Supervision or Touching Assistance-helper provides verbal cues and/or touching/steadying and/or contact guard assistance as patient completes activity. Assistance may be provided throughout the activity or intermittently. 3-Partial/Moderate Assistance-helper does LESS THAN HALF the effort. [place] lifts, holds or supports trunk or limbs, but provides less than half the effort. 2-Substantial/Maximal Assistance-helper does MORE THAN HALF the effort. [place] lifts or holds trunk or limbs and provides more than half the effort. 7-Gkgmshcii-hilckx does ALL the effort. Patient does none of the effort to complete the activity. Or, the assistance of 2 or more helpers is required for the patient to complete the activity. If activity was not attempted, code reason: 7-Patient Refused. 9-Not Applicable-not attempted and the patient did not perform the activity before the current illness, exacerbation or injury. 10-Not Attempted due to Environmental Limitations-(lack of equipment, weather restraints, etc.). 88-Not Attempted due to Medical Conditions or Safety Concerns. ADL PLOF Comments Pt reports that she was not IND with ADLs at [facility]. She receives daily assistance from niece with toileting hygiene, showering, dressing, and some IADLs (including medicine management). Pt lives with and granddaughter, but niece comes over morning to night to take care of pt. Pt uses FWW to ambulate around house. Self Care: Needed Some Help Functional Cognition: Independent DME/Equipment: Bath Chair, Shower OT Current Status Subjective Pt seated in recliner upon OT arrival, agreeable to eval/tx. Pt does not believe she overdosed, politely stating that this has never happened before and her niece knows what she is doing. Pt required the purpose of OT to be repeated several times to understand. Although she appears to be at baseline, she requested services to increased IND in ADLs to lessen load on niece. Mental Status/Objective Patient Orientation: Person, Place Attachments: Oxygen Current Upper Extremity ROM WFL Upper Extremity Strength grossly 3+/5 BUEs. Edema: LUE lymphedema ADL-Treatment Eating (QC): 6 On/Off Footwear (QC): 3 (Mod A overall. Unable to completely take socks off bilateral feet. Pt remove sock to above toe level then hiked sock back up) Other Treatments Pt provided information about PLOF and living environment while seated in the recliner. Pt completed footwear while seated at the edge of the recliner, requiring encouragement to complete task. Pt appears to be at baseline, verbalizing that her niece typically helps her with toileting, dressing, bathin g, and some IADLs and her abilities have not decreased since her hospital admission. However, pt requested OT services to increase IND in ADLs and lessen load on niece and for UE strengthening. Post tx, pt left in recliner with call light in reach and all needs met. Education OT Patient Education: Energy conservation, Exercise program, Modified ADL techniques, Progress toward Goal/Update tx plan, Purpose of tx/functional activities, Rehab process Teaching Recipient: Patient Teaching Methods: Discussion Response to Teaching: Verbalize Understanding, Reinforcement Needed OT [place] Goals Usp Goals Time Frame: May 07, 2022 Toileting Hygiene (QC): 4 Upper Body Dressing (QC): 5 Lower Body Dressing (QC): 4 On/Off Footwear (QC): 4 Additional Goals: 1-Demonstrate ADL Tasks, 2-Verbalize Understanding, 3- ImproveStrength/Tasha 1=Demonstrate adherence to instructed precautions during ADL tasks. 2=Patient will verbalize/demonstrate understanding of assistive devices/modifications for ADL. 3=Patient will improve strength/tolerance for activity to enable patient to perform ADL's. OT Education/Plan Problem List/Assessment Assessment: Decreased Activ Tolerance, Decreased UE Strength, Impaired Funct Balance, Impaired I ADL's, Impaired Self-Care Skills Pt would benefit from skilled OT services in order to increase BUE strength and endurance, activity tolerance, functional mobility, and increased IND in dressing and toileting to lessen animal care taker assistance at home and maximize LOF. Discharge Recommendations Plan/Recommendations: Continue POC Treatment Plan/Plan of Care Patient would benefit from OT for education, treatment and training to promote independence in ADL's, mobility, safety and/or upper extremity function for ADL's. Plan of Care: ADL Retraining, Functional Mobility, UE Funct Exercise/Act Treatment Duration: May 07, 2022 Frequency: 3 times per week (3-5x per week) Estimated Hrs Per Day: .25 hour per day Rehab Potential: Fair Time/GCodes Start Time: 10:48 Stop Time: 10:59 Total Time Billed (hr/min): 11 Billed Treatment Time 1, EVL (11') ANA M SANDOVAL OT Apr 19, 2022 11:39
[2022-04-19] MEDS ORDERED: REGADENOSON 0.4 MG/5 ML SYR (LEXISCAN) IV ONE (11:45)
[2022-04-19] MEDS ORDERED: LOSARTAN 50 MG (COZAAR) TAB PO SCH (12:15)
[2022-04-19] MEDS ORDERED: CARV6.252 PO (13:44)
[2022-04-19] MEDS ORDERED: LEVO125C4 PO (13:44)
[2022-04-19] MEDS ORDERED: ZOLP5TAB7 PO (13:44)
[2022-04-19] MEDS ORDERED: GABA300C PO ×2 (13:45→13:46)
[2022-04-19] MEDS ORDERED: FURO20TA4 PO (13:45)
[2022-04-19] MEDS ORDERED: VNL37.5T PO (13:46)
[2022-04-19] MEDS ORDERED: LOSA100T57 PO (13:47)
[2022-04-19] MEDS ORDERED: ACET-2267 PO (13:47)
[2022-04-19] MEDS ORDERED: INSU100C3 SQ (13:48)
[2022-04-19] MEDS ORDERED: INSU100I29 SQ (13:49)
[2022-04-19] MEDS ORDERED: MELA5TAB14 PO (13:49)
[2022-04-19] MEDS: amLODIPine 5 MG (NORVASC) TAB PO SCH (14:56)
[2022-04-19] MEDS: CEFEPIME INJECTION 1,000 MG in NS (IVPB) 50 ML IV SCH ×2 (14:56→22:44)
[2022-04-19 15:15] VITALS: BP 174/76
[2022-04-19] MEDS: MELATONIN 3 MG TABLET PO PRN (20:01)
[2022-04-19] MEDS ORDERED: RT-ALBUTEROL SULF 2.5 MG/3 ML PRE-MIX VIAL IH PRN (20:30)
[2022-04-19] MEDS ORDERED: NON-FORMULARY MEDICATION 1 EA EA (Melatonin 5 MG) PO PRN (20:30)
[2022-04-19] MEDS: LACTULOSE SYRUP 10GM/15ML (ENULOSE) 30ML UDC PO SCH (21:49)
[2022-04-19] MEDS: VENlafaxine 37.5 MG (EFFEXOR) TAB PO SCH (22:43)
[2022-04-19] MEDS: ZOLPIDEM 5 MG (AMBIEN) TAB PO SCH (22:43)
[2022-04-19] MEDS: GABAPENTIN 300 MG (NEURONTIN) CAP PO SCH (22:44)
[2022-04-19 23:45] VITALS: BP 167/65
[2022-04-19] MEDS: ALPRAZolam 0.25 MG (XANAX) TAB PO PRN (23:57)
[2022-04-20] VITALS (17 sets, daily range): BP systolic 149–189; BP diastolic 47–98
--- NOTE | 2022-04-20 05:52 | Progress Note - Hospitalist ---
Subjective HPI/CC On Admission Date Seen by Provider: Apr 20, 2022 Time Seen by Provider: 09:00 Chief complaint: Nonpurposeful overdose History present illness: This is a 71-year-old female history of cardiac murmur and cardiology she does not know who it is who presented to the ER with accidental overdose of morning and nighttime meds with insulin. She was found to have blood sugar of 550 given IV insulin and sugars improved but cardiology evaluated her to have congestive heart failure and I appreciate his expertise. Subjective/Events-last exam Patient undergoing stress test right now Blood sugars are much better with increased insulin PT and OT ordered Patient with acute on chronic debility Social work consult Objective Exam Vital Signs Vital Signs Date Time Temp Pulse Resp B/P (MAP) Pulse Ox O2 Delivery O2 Flow Rate FiO2 04/20/22 19:09 71 04/20/22 19:00 18 169/84 (112) 96 Nasal Cannula 2.00 04/20/22 11:12 36.2 Capillary Refill : Less Than 3 Seconds General Appearance: No Apparent Distress, WD/WN, Chronically ill Results/Procedures Lab Patient resulted labs reviewed. Assessment/Plan Assessment and Plan Assess & Plan/Chief Complaint Assessment: OD CHF Edema DM OOC Memory loss Anxiety Depression Debility Plan: Monitor closely Lasix Dr Flores consult Insulin Monitor closely EST today Diagnosis/Problems Diagnosis/Problems (1) Diabetes mellitus with hyperglycemia, with long-term current use of insulin Status: Acute (2) Dehydration Status: Resolved Resolution Date/Time: 09/15/21 @ 15:01 JESÚS MCCLOUD DO Apr 20, 2022 05:52
[2022-04-20] MEDS: inSUlin ASPART (NovoLOG) 1 UNIT/0.01 ML (CHARGE PER UNIT) SC SCH ×7 (06:20→21:08)
[2022-04-20] MEDS: LEVOTHYROXINE 125 MCG (LEVOTHROID) TABLET PO SCH (06:25)
[2022-04-20] MEDS: CATHETER FLUSH 10 ML SYR IVP SCH ×3 (06:25→22:07)
[2022-04-20] MEDS: CEFEPIME INJECTION 1,000 MG in NS (IVPB) 50 ML IV SCH ×3 (06:25→22:06)
[2022-04-20] MEDS ORDERED: REGADENOSON 0.4 MG/5 ML SYR (LEXISCAN) IV ONE (07:58)
[2022-04-20] MEDS: DOCUSATE SODIUM 100 MG (COLACE) CAP PO SCH ×2 (09:00→21:08)
[2022-04-20] MEDS ORDERED: FUROSEMIDE 20 MG (LASIX) TAB PO SCH (09:00)
[2022-04-20] MEDS: LACTULOSE SYRUP 10GM/15ML (ENULOSE) 30ML UDC PO SCH ×2 (09:00→20:50)
--- NOTE | 2022-04-20 09:33 | Physical Therapy Progress Note ---
Therapy Progress Note Patient is currently having testing on this date and is on hold per RN. Will follow and resume therapy when patient is able to actively participate. SAVANA GIVENS PT Apr 20, 2022 09:33
--- NOTE | 2022-04-20 09:51 | Cardiology Stress Test Report ---
Stress Test Report Date of Procedure/Referring: Date of Procedure: Apr 20, 2022 PCP Patricio Barnard MD Admitting Physician Admitting Physician: Letitia Patel DO Attending Physician: Letitia Patel DO Indications: Baseline Heart Rate: 63 Baseline Blood Pressure: Blood Pressure Systolic: 158 Blood Pressure Diastolic: 62 Baseline Vitals Vital Signs Date Time Temp Pulse Resp B/P (MAP) Pulse Ox O2 Delivery O2 Flow Rate FiO2 04/17/22 23:00 36.4 79 20 185/66 (105) 98 Nasal Cannula 2.00 Baseline EKG: Baseline EKG: NSR Summary After explaining the procedure to the patient, she signed a consent and then brought to the stress nuclear laboratory. Patient received 0.4 mg Lexiscan for stress test, ECG, heart rate and blood pressure were monitored continuously. Resting and stress dose of radio tracer were injected, imaging was acquired and reviewed in short axis, horizontal long axis and vertical long axis views. TID: 1.03 SSS: 18 SDS: 13 EF: 35 1. Patient tolerated Lexiscan well 2. Reversible ischemia involving the anterior wall and anterolateral wall and anterior septum 3. Prominent left ventricle with diffuse left ventricular hypokinesia, ejection fraction 35% BILL HAMPTON MD Apr 20, 2022 09:51
--- NOTE | 2022-04-20 09:54 | Cardiology Progress Note ---
Subjective Date Seen by Provider: Apr 20, 2022 Time Seen by Provider: 09:51 Subjective/Events-last exam Patient was seen in the stress lab. She was feeling well. No chest pain was reported Review of Systems General: No Chills, No Night Sweats; Fatigue, Malaise; No Appetite, No Other HEENT: No Head Aches, No Visual Changes, No Eye Pain, No Ear Pain, No Dysphasia, No Sinus Congestion, No Post Nasal Drip, No Sore Throat, No Other Pulmonary: Dyspnea; No Cough, No Pleuritic Chest Pain, No Other Cardiovascular: No: Chest Pain, Palpitations, Orthopnea, Paroxysmal Noc. Dyspnea, Edema, Lt Headedness, Other Objective-Cardiology Exam Last Set of Vital Signs Vital Signs 04/19/22 04/20/22 04/20/22 23:45 08:09 08:34 Temp 37.0 Pulse 68 Resp 20 B/P (MAP) 158/62 (94) Pulse Ox 99 O2 Delivery Nasal Cannula O2 Flow Rate 2.00 I&O Intake and Output0 04/20/22 00:00 Intake Total 1750 ml Balance 1750 ml Intake Oral 1700 ml IV Total 50 ml # Voids 5 General: Alert, Oriented X3, Cooperative HEENT: Atraumatic, PERRLA Neck: Supple, No JVD, No Thyromegaly Lungs: Clear to Auscultation, Normal Air Movement Heart: Regular Rate, Normal S1, Normal S2, Other (Systolic murmur) Abdomen: Normal Bowel Sounds, Soft, No Tenderness, No Hepatosplenomegaly, No Masses Extremities: No Clubbing, No Cyanosis, No Edema, Normal Pulses, No Tenderness/Swelling Skin: No Rashes, No Breakdown, No Significant Lesion Neuro: Normal Gait, Normal Speech, Strength at 5/5 X4 Ext, Normal Tone, Sensation Intact Psych/Mental Status: Mental Status NL, Mood NL Results Lab Laboratory Tests Test 04/19/22 10:37 04/19/22 15:50 04/19/22 21:11 04/20/22 05:04 Range/Units Glucometer 382 H 224 H 187 H 150 H 70-110 MG/DL A/P-Cardiology Admission Diagnosis Accidental overdose HTN HLP Assessment/Plan Accidental overdose of insulin and gabapentin- Followed and managed by primary care physician continue to monitor. Aortic stenosis-moderate, asymptomatic 2D echo was done on April 19, 2022 showing moderate stenosis, ejection fraction 45 to 50%, severe pulmonary hypertension with PA pressure 65 to 70 mmHg Coronary artery disease, angina equivalent with mild dyspnea on exertion Abnormal stress test with reversible ischemia involving the anterior wall, anterolateral wall and anterior septum, ejection fraction 35% on the gated images. I advised to proceed with cardiac catheterization possible PTCA Hypertension, poor control. Patient was on amlodipine 5 mg as an outpatient which will be restarted, adding losartan 50 mg daily Continue to monitor blood pressure and renal function. HLP, maintained on statin as outpatient DM, management per medical services. Hypothyroidism COPD, oxygen dependent. Patient reports has been on continuous oxygen since having pneumonia in August 2021. Obesity CKD, management per medical services Diabetic neuropathy Chronic peripheral edema, diurese as tolerated. Multiple risk factors for underlying CAD, planning for stress test. BILL HAMPTON MD Apr 20, 2022 09:54
[2022-04-20] MEDS: SENNA W/DOCUSATE (SENOKOT S) TABLET PO SCH ×2 (11:04→21:08)
--- NOTE | 2022-04-20 11:25 | Occupational Ther Daily Note ---
OT Current Status-Daily Note Subjective Nrsg okayed HUTCHINSON to work with pt. Pt alert, lying in bed. Pt requested to stay in bed for OT session due to just getting back from stress test. Mental Status/Objective Patient Orientation: Person, Place, Time, Situation Attachments: IV ADL-Treatment Therapy Code Descriptions/Definitions Functional [place] Measure: 0=Not Assessed/NA 4=Minimal Assistance 1=Total Assistance 5=Supervision or Setup 2=Maximal Assistance 6=Modified [place] 3=Moderate Assistance 7=Complete IndependenceSCALE: Activities may be completed with or without assistive devices. 8-Pdusaofofl-vharkxb completes the activity by him/herself with no assistance from a helper. 5-Set-up or Clean-up Assistance-helper sets up or cleans up; patient completes activity. [place] assists only prior to or following the activity. 4-Supervision or Touching Assistance-helper provides verbal cues and/or touching/steadying and/or contact guard assistance as patient completes activity. Assistance may be provided throughout the activity or intermittently. 3-Partial/Moderate Assistance-helper does LESS THAN HALF the effort. [place] lifts, holds or supports trunk or limbs, but provides less than half the effort. 2-Substantial/Maximal Assistance-helper does MORE THAN HALF the effort. [place] lifts or holds trunk or limbs and provides more than half the effort. 2-Httmvygec-bxyezi does ALL the effort. Patient does none of the effort to com plete the activity. Or, the assistance of 2 or more helpers is required for the patient to complete the activity. If activity was not attempted, code reason: 7-Patient Refused. 9-Not Applicable-not attempted and the patient did not perform the activity before the current illness, exacerbation or injury. 10-Not Attempted due to Environmental Limitations-(lack of equipment, weather restraints, etc.). 88-Not Attempted due to Medical Conditions or Safety Concerns. Other Treatment Pt able to demonstrated lymphatic massage to L UE independently. Pt then completed B UE strengthening against gravity and to increase ROM of L UE. Pt completed 5 exercises 1 set 15 reps each-finger flex/ext, wrist flex/ext, forearm sup/pron, elbow flex/ext, clasping hands to complete shldr flex to 90 degrees with shldr protraction. Pt stated that she was fatigued and declined any further exercises. With FOB elevated, pt able to scoot self up in bed. After session, pt lying in bed with call light/phone in reach. All needs met in room. Education OT Patient Education: Exercise program Teaching Recipient: Patient Teaching Methods: Demonstration, Discussion Response to Teaching: Verbalize Understanding, Return Demonstration, Reinforcement Needed OT Corporate Tutor Goals Halfway Goals Time Frame: May 07, 2022 Toileting Hygiene (QC): 4 Upper Body Dressing (QC): 5 Lower Body Dressing (QC): 4 On/Off Footwear (QC): 4 Additional Goals: 1-Demonstrate ADL Tasks, 2-Verbalize Understanding, 3- ImproveStrength/Tasha 1=Demonstrate adherence to instructed precautions during ADL tasks. 2=Patient will verbalize/demonstrate understanding of assistive device s/modifications for ADL. 3=Patient will improve strength/tolerance for activity to enable patient to perform ADL's. OT Education/Plan Problem List/Assessment Assessment: Decreased Activ Tolerance, Decreased UE Strength, Edema, Impaired Bed Mobility Pt would benefit from skilled OT services in order to increase BUE strength and endurance, activity tolerance, functional mobility, and increased IND in dressing and toileting to lessen childbirth and infant care teacher assistance at home and maximize LOF. Discharge Recommendations Plan/Recommendations: Continue POC Treatment Plan/Plan of Care Patient would benefit from OT for education, treatment and training to promote independence in ADL's, mobility, safety and/or upper extremity function for ADL's. Plan of Care: ADL Retraining, Functional Mobility, UE Funct Exercise/Act Treatment Duration: May 07, 2022 Frequency: 3 times per week (3-5x per week) Estimated Hrs Per Day: .25 hour per day Rehab Potential: Fair Time/GCodes Start Time: 10:30 Stop Time: 10:47 Total Time Billed (hr/min): 17 Billed Treatment Time 1 visit-EX 1 (17 min) JARROD MATHIS Apr 20, 2022 11:25
[2022-04-20] MEDS: amLODIPine 5 MG (NORVASC) TAB PO SCH (11:29)
[2022-04-20] MEDS: LOSARTAN 100 MG (COZAAR) TABLET PO SCH (11:29)
[2022-04-20] MEDS ORDERED: LIDOCAINE 1% INJ 20 ML VIAL ONE (12:00)
[2022-04-20] MEDS ORDERED: HEParin (CATH LAB) 2,000 ML IV ONE (12:00)
[2022-04-20] MEDS ORDERED: NS IV 1000 ML 1,000 ML ONE (12:12)
[2022-04-20] MEDS: VENlafaxine 37.5 MG (EFFEXOR) TAB PO SCH ×3 (12:20→21:00)
[2022-04-20] MEDS: GABAPENTIN 300 MG (NEURONTIN) CAP PO SCH ×3 (12:24→20:50)
[2022-04-20] MEDS: ENOXAPARIN 40 MG/0.4 ML (LOVENOX) SYR SC SCH (12:25)
[2022-04-20] MEDS: NS IV 1000 ML 1,000 ML IV SCH ×3 (12:27→23:39)
[2022-04-20] MEDS ORDERED: fentaNYL INJ 100 MCG/2 ML AMP ONE (15:09)
[2022-04-20] MEDS ORDERED: MIDAZOLAM 5 MG/5 ML (VERSED) VIAL ONE (15:09)
--- NOTE | 2022-04-20 15:30 | Cardiac Procedure Note-CS/ASA ---
Pre-Procedure Note Pre-Op Procedure Note H&P Reviewed The H&P was reviewed, patient examined and no changes noted. Date H&P Reviewed: Apr 20, 2022 Time H&P Reviewed: 15:30 Conscious Sedation Pre-Proced Time 15:30 ASA Score 3, 4 For ASA 3 and 4: Consider anesthesia and medical clearance. Also, for patients with a history of failed moderate sedation consider anesthesia. Airway Lungs Heart ASA score ASA 1: a normal healthy patient ASA 2: a patient with a mild systemic disease (mid diabetes, controlled hypertension, obesity ASA 3: a patient with a severe systemic disease that limits activity (angina, COPD, prior Myocardial infarction) ASA 4: a patient with an incapacitating disease that is a constant threat to life (CHF, renal failure) ASA 5: a moribund patient not expected to survive 24 hrs. (ruptured aneurysm) ASA 6: a declared brain- patient whose organs are being harvested. For emergent operations, add the letter E after the classification Mallampati Classification Grade 2 Sedation Plan Analgesia, Amnesia, Plan communicated to team members, Discussed options with patient/fam, Discussed risks with patient/fam The patient is an appropriate candidate to undergo the planned procedure, sedation, and anesthesia. The patient immediately re-assessed prior to indication. TRACEY DOSS MD FACP FAC CCDS Apr 20, 2022 15:30
[2022-04-20] MEDS ORDERED: EPTIFIBATIDE BOLUS 20 ML IV ONE (16:04)
[2022-04-20] MEDS ORDERED: HEParin 1000 UNIT/ML (10ML VIAL) FOR BOLUS ONE (16:04)
[2022-04-20] MEDS ORDERED: NITRO DRIP 25000 MCG/D5W 250 ML IV ONE (16:04)
[2022-04-20] MEDS ORDERED: diphenhydrAMINE 50 MG/ML INJ (BENADRYL) ONE (16:12)
[2022-04-20] MEDS ORDERED: CLOPIDOGREL 300 MG (PLAVIX) TABLET PO ONE (16:43)
[2022-04-20] MEDS ORDERED: ASPIRIN 81 MG CHEW (CHILDREN'S ASA) ONE (16:43)
[2022-04-20] MEDS ORDERED: PATIENT MAY USE OWN MEDS, ALL PO SCH (17:30)
[2022-04-20] MEDS: ZOLPIDEM 5 MG (AMBIEN) TAB PO SCH (20:50)
--- NOTE | 2022-04-20 23:30 | CARDIAC CATHETERIZATION ---
DATE OF SERVICE: 04/20/2022 CARDIAC CATHETERIZATION AND CORONARY INTERVENTION REPORT INDICATION FOR PROCEDURE: The patient is a 71-year-old lady, who has shortness of breath and has moderate aortic stenosis and pulmonary hypertension on echocardiography. She underwent a myocardial perfusion imaging study today by Dr. Flores. She was found to have significant anterior wall ischemia. Cardiac catheterization was carried out after having obtained an informed consent. DESCRIPTION OF PROCEDURE: She was brought to the cardiac catheterization laboratory in a fasting state. Right groin was prepared and draped in the usual sterile fashion. Lidocaine 1% was used for local anesthesia. Modified Seldinger technique was used to advance a 5-Barbadian sheath into the right femoral artery and a 7-Barbadian sheath in the right femoral vein. A 7-Barbadian [place]-Angelique catheter was used to carry out right heart catheterization. Oxygen saturations were obtained. There was no significant step-up in oxygen concentration between the various right heart chambers. Thus, there was no evidence of any significant intracardiac shunt. Considerable pulmonary hypertension was seen. The [place]-Angelique catheter was then removed. We used a 5-Barbadian pigtail catheter to carry out left heart catheterization. We were able to cross the aortic valve without significant difficulty. Left ventricular angiography was performed. We then carried out coronary angiography. We used a 5-Barbadian JL4 catheter for left coronary and a 5-Barbadian JR4 catheter for right coronary artery. We used a 5-Barbadian pigtail catheter for left heart catheterization and left ventricular angiography. Subsequently, percutaneous intervention was carried out in the left anterior descending artery as described below. PERCUTANEOUS INTERVENTION OF THE LEFT ANTERIOR DESCENDING: We exchanged the sheath over a wire for a 6-Barbadian sheath. We gave 6000 units of intravenous heparin. A double bolus of Integrilin was also given during the interventional procedure. We engaged the left coronary artery using a 6-Barbadian JL4 guide catheter. We used to advance a BMW wire across a 70% stenosis in the mid left anterior descending. We advanced a Skypoint 3.0 x 18 mm stent to the lesion. Stent was deployed at 16 atmospheres. Subsequently, the proximal two-thirds of the standard segment were postdilated with a 3.5 x 15 mm noncompliant balloon. This was first inflated to 14 atmospheres and then to 18 atmospheres. Full stent expansion was achieved. Flow throughout the vessel was normal. She tolerated the procedure well. Angiography of the right femoral artery was carried out through the sheath and Mynx was used to achieve hemostasis. HEMODYNAMICS: Pulmonary artery pressure was 78/31 with a mean of 49 mmHg. Mean pulmonary wedge pressure was 23 mmHg. Mean right atrial pressure was 18 mmHg. The aortic pressure was 176/65 with a mean of 102 mmHg. There appeared to be approximately 14 mm pressure gradient on pullback across the aortic valve. Left ventricular end-diastolic pressure was 28 mmHg. LEFT VENTRICULAR ANGIOGRAPHY: Left ventricular angiography was carried out in the right anterior oblique projection. Global left ventricular systolic function appears mildly impaired. Left ventricular ejection fraction is approximately 45% to 50%. CORONARY ANGIOGRAPHY: Left main coronary artery is free of significant disease. Left anterior descending artery had 70% mid vessel stenosis, which was successfully stented with Promus 3.5 x 18 mm stent (as detailed above under the procedure note). The left circumflex artery does not exhibit significant disease. Right coronary artery is dominant, does not exhibit significant disease. CONCLUSIONS: 1. Coronary artery disease primarily consisting of 70% mid vessel stenosis of the left anterior descending (in whose territory significant ischemia was demonstrated on myocardial perfusion imaging earlier today). This lesion was stented with Promus 3.0 x 18 mm stent with no significant residual stenosis. The rest of the coronary vessels do not exhibit significant obstructive disease. 2. Mild impairment of global left ventricular systolic function with ejection fraction 45% to 50%. 3. Significant elevation of left ventricular end-diastolic pressure and pulmonary wedge pressure, indicating congestive heart failure, probably both systolic and diastolic. 4. Pulmonary hypertension, probably at least partly secondary to left heart failure. DISCUSSION AND RECOMMENDATIONS: Dual antiplatelet therapy has been added to the regimen. Beta sam therapy and LISETH inhibitor therapy will be provided as needed. Diuretic therapy will be provided as needed and as tolerated. Job ID: [id number] DocumentID: [id number] Dictated Date: 04/20/2022 16:39:15 Oceanography Professor Date: 04/20/2022 23:30:08 Dictated By: TRACEY DOSS MD, MA, FACP, FACC, MTDD
[2022-04-21 04:38] VITALS: BP 158/69
[2022-04-21] MEDS: NS IV 1000 ML 1,000 ML IV SCH (04:43)
[2022-04-21] MEDS: LEVOTHYROXINE 125 MCG (LEVOTHROID) TABLET PO SCH (05:43)
[2022-04-21] MEDS: CEFEPIME INJECTION 1,000 MG in NS (IVPB) 50 ML IV SCH (05:44)
[2022-04-21] MEDS: inSUlin ASPART (NovoLOG) 1 UNIT/0.01 ML (CHARGE PER UNIT) SC SCH ×4 (05:44→12:43)
[2022-04-21] MEDS: CATHETER FLUSH 10 ML SYR IVP SCH (05:44)
--- NOTE | 2022-04-21 05:52 | Progress Note - Hospitalist ---
Subjective HPI/CC On Admission Date Seen by Provider: Apr 21, 2022 Time Seen by Provider: 09:00 Chief complaint: Nonpurposeful overdose History present illness: This is a 71-year-old female history of cardiac murmur and cardiology she does not know who it is who presented to the ER with accidental overdose of morning and nighttime meds with insulin. She was found to have blood sugar of 550 given IV insulin and sugars improved but cardiology evaluated her to have congestive heart failure and I appreciate his expertise. Objective Exam Vital Signs Vital Signs Date Time Temp Pulse Resp B/P (MAP) Pulse Ox O2 Delivery O2 Flow Rate FiO2 04/21/22 07:45 Nasal Cannula 2.00 04/21/22 07:43 36.5 76 20 184/84 (117) 95 Capillary Refill : Less Than 3 Seconds Results/Procedures Lab Laboratory Tests 04/21/22 06:30 Patient resulted labs reviewed. Assessment/Plan Assessment and Plan Assess & Plan/Chief Complaint Assessment: OD CHF Edema DM OOC Memory loss Anxiety Depression Debility Plan: Monitor closely Lasix Dr Flores consult Insulin Monitor closely EST today Diagnosis/Problems Diagnosis/Problems (1) Diabetes mellitus with hyperglycemia, with long-term current use of insulin Status: Acute (2) Dehydration Status: Resolved Resolution Date/Time: 09/15/21 @ 15:01 JESÚS MCCLOUD DO Apr 21, 2022 05:52
[2022-04-21 06:40] LABS: BASOPHILS % (AUTO) 1 % (0-10); EOSINOPHILS # (AUTO) 0.3 10^3/uL (0.0-0.3); EOSINOPHILS % (AUTO) 5 % (0-10); HEMATOCRIT 35 % (35-52); HEMOGLOBIN 10.2 g/dL (11.5-16.0); LYMPHOCYTES # (AUTO) 1.1 10^3/uL (1.0-4.0); LYMPHOCYTES % (AUTO) 15 % (12-44); MEAN CORPUSCULAR HEMOGLOBIN 28 pg (25-34); MEAN CORPUSCULAR HGB CONC 30 g/dL (32-36); MEAN CORPUSCULAR VOLUME 95 fL (80-99); MEAN PLATELET VOLUME 10.7 fL (9.0-12.2); MONOCYTES # (AUTO) 0.6 10^3/uL (0.0-1.0); MONOCYTES % (AUTO) 8 % (0-12); NEUTROPHILS # (AUTO) 5.2 10^3/uL (1.8-7.8); NEUTROPHILS % (AUTO) 71 % (42-75); PLATELET COUNT 308 10^3/uL (130-400); WHITE BLOOD COUNT 7.2 10^3/uL (4.3-11.0)
[2022-04-21 06:51] LABS: ALBUMIN 2.8 GM/DL (3.2-4.5)
[2022-04-21 06:52] LABS: CALCIUM 8.4 MG/DL (8.5-10.1)
[2022-04-21 06:53] LABS: TOTAL PROTEIN 5.9 GM/DL (6.4-8.2)
[2022-04-21 06:55] LABS: BILIRUBIN,TOTAL 0.5 MG/DL (0.1-1.0)
[2022-04-21 06:57] LABS: CREATININE SERUM 1.29 MG/DL (0.60-1.30)
[2022-04-21 06:59] LABS: BILIRUBIN,DIRECT 0.2 MG/DL (0.0-0.3); BILIRUBIN,INDIRECT 0.3 MG/DL
[2022-04-21] MEDS ORDERED: KCL 20 MEQ TAB (K-DUR) PO SCH (07:00)
[2022-04-21 07:43] VITALS: BP 184/84
[2022-04-21] MEDS: VENlafaxine 37.5 MG (EFFEXOR) TAB PO SCH ×2 (08:13→12:42)
[2022-04-21] MEDS: LOSARTAN 100 MG (COZAAR) TABLET PO SCH (08:13)
[2022-04-21] MEDS: LACTULOSE SYRUP 10GM/15ML (ENULOSE) 30ML UDC PO SCH (08:13)
[2022-04-21] MEDS: amLODIPine 5 MG (NORVASC) TAB PO SCH (08:13)
[2022-04-21] MEDS: GABAPENTIN 300 MG (NEURONTIN) CAP PO SCH ×2 (08:13→12:43)
[2022-04-21] MEDS: SENNA W/DOCUSATE (SENOKOT S) TABLET PO SCH (08:13)
[2022-04-21] MEDS: DOCUSATE SODIUM 100 MG (COLACE) CAP PO SCH (08:13)
[2022-04-21] MEDS: ENOXAPARIN 40 MG/0.4 ML (LOVENOX) SYR SC SCH (08:14)
[2022-04-21] MEDS ORDERED: CLOPIDOGREL 75 MG (PLAVIX) TABLET PO SCH (09:00)
[2022-04-21] MEDS ORDERED: FUROSEMIDE 40 MG/4 ML INJ (LASIX) IVP SCH (09:00)
[2022-04-21] MEDS ORDERED: ASPIRIN 81 MG CHEW (CHILDREN'S ASA) PO SCH (09:00)
--- NOTE | 2022-04-21 09:19 | Cardiology Progress Note ---
Subjective Date Seen by Provider: Apr 21, 2022 Time Seen by Provider: 08:30 Subjective/Events-last exam Patient is laying in bed, complaining of some dyspnea. Review of Systems General: No Chills, No Night Sweats, No Fatigue, No Malaise, No Appetite, No Other HEENT: No Head Aches, No Visual Changes, No Eye Pain, No Ear Pain, No Dysphasia, No Sinus Congestion, No Post Nasal Drip, No Sore Throat, No Other Pulmonary: Dyspnea; No Cough, No Pleuritic Chest Pain, No Other Cardiovascular: No: Chest Pain, Palpitations, Orthopnea, Paroxysmal Noc. Dyspnea, Edema, Lt Headedness, Other Objective-Cardiology Exam Last Set of Vital Signs Vital Signs 04/21/22 04/21/22 07:43 07:45 Temp 36.5 Pulse 76 Resp 20 B/P (MAP) 184/84 (117) Pulse Ox 95 O2 Delivery Nasal Cannula O2 Flow Rate 2.00 I&O Intake and Output 04/21/22 00:00 Intake Total 2125 ml Balance 2125 ml Intake Oral 75 ml IV Total 2050 ml # Voids 5 # Bowel Movements 1 General: Alert, Oriented X3, Cooperative HEENT: Atraumatic, PERRLA Neck: Supple, No JVD, No Thyromegaly Lungs: Clear to Auscultation, Normal Air Movement Heart: Regular Rate, Normal S1, Normal S2, Other (Systolic murmur) Abdomen: Normal Bowel Sounds, Soft, No Tenderness, No Hepatosplenomegaly, No Masses Extremities: No Clubbing, No Cyanosis, Normal Pulses, No Tenderness/Swelling, Other (+1 edema BLE) Skin: No Rashes, No Breakdown, No Significant Lesion Neuro: Normal Gait, Normal Speech, Strength at 5/5 X4 Ext, Normal Tone, Sensation Intact Psych/Mental Status: Mental Status NL, Mood NL Results Lab Laboratory Tests 04/21/22 06:30 A/P-Cardiology Admission Diagnosis Accidental overdose HTN HLP Assessment/Plan Accidental overdose of insulin and gabapentin- Followed and managed by primary care physician continue to monitor. Aortic stenosis-moderate, asymptomatic 2D echo was done on April 19, 2022 showing moderate stenosis, ejection fraction 45 to 50%, severe pulmonary hypertension with PA pressure 65 to 70 mmHg Coronary artery disease, angina equivalent with mild dyspnea on exertion Underwent LHC on 04/20/22 after having abnormal stress test showing Coronary artery disease primarily consisting of 70% mid vessel stenosis of the left anterior descending (in whose territory significant ischemia was demonstrated on myocardial perfusion imaging earlier today). This lesion was stented with Promus 3.0 x 18 mm stent with no significant residual stenosis. The rest of the coronary vessels do not exhibit significant obstructive disease. Mild impairment of global left ventricular systolic function with ejection f raction 45% to 50%. Maintained on ASA and Plavix Hypertension, mildly elevated. Started on losartan and Coreg in addition to her amlodipine. I will continue to monitor. HLP, evaluate lipid profile and start Lipitor 10 mg daily DM, management per medical services. Hypothyroidism COPD, oxygen dependent. Patient reports has been on continuous oxygen since having pneumonia in August 2021. Obesity CKD, management per medical services Diabetic neuropathy Chronic peripheral edema, diurese as tolerated. Supervisory-Addendum Brief Supervisory Addendum Participated in pt care: history, MDM, physical Personally performed: exam, history, MDM Care discussed with: MONIK Results interpretation: Verified all documentation Notes: Patient was seen and evaluated with Claudia, examination performed, management plan was discussed, agree with the current scribed note, I made few changes to the note using Italic font Patient was seen at bedside, had some dyspnea Given Lasix and reported improvement Denied any chest pain Underwent stenting to the LAD with a ayanna point stent. Adding statin empirically. Okay for discharge and arrange for follow-up as an outpatient CLAUDIA BEAN Apr 21, 2022 09:19 BILL HAMPTON MD Apr 21, 2022 10:09
[2022-04-21 10:29] LABS: TRIGLYCERIDES 132 MG/DL (<150); VLDL CHOLESTEROL 26 MG/DL (5-40)
[2022-04-21 10:34] LABS: CHOLESTEROL 185 MG/DL (< 200); HDL CHOLESTEROL 44 MG/DL (40-60)
[2022-04-21] MEDS ORDERED: CLOP75TA28 PO (10:54)
[2022-04-21] MEDS ORDERED: POTA-169 PO (10:54)
[2022-04-21] MEDS ORDERED: ASPI81TA64 PO (10:54)
[2022-04-21] MEDS ORDERED: AMLO-250 PO (10:54)
[2022-04-21] MEDS ORDERED: ATOR10TA66 PO (10:54)
--- NOTE | 2022-04-21 10:55 | D/C HH Face to Face Order ---
D/C HH Face to Face Orders Reconcile Patient Problems Problems Reviewed?: Yes Instructions for Patient Intergrity Patient Instructions/FollowUp: PCP 1 week Physician to follow Patient: [facility] Discharge Diet for Home: ADA Diet Patient Problems: Debility CAD s/p stents Patient Data-Allergies,Ht & Wt Patient Allergies: Coded Allergies: ceftriaxone (Verified Allergy, Intermediate, N/V/D, 04/18/22) adhesive tape (Unverified Allergy, Unknown, 12/24/19) codeine (Verified Allergy, Unknown, 12/24/19) morphine (Verified Allergy, Unknown, 12/24/19) penicillin G (Verified Allergy, Unknown, 12/24/19) Home Health Need/Face to Face Date of Face to Face: Apr 21, 2022 Clinical Findings: Generalized weakness and fatigue, Instability, Muscle weakness I have seen Pt [id number]: Yes Discharged To: Home Diagnosis/Conditions: CAD Patient is Homebound due to: CognItive deficits, Ramiro fall risk due to instabilty, Muscle weakness Homebound Status Due to the above stated illness, injury or surgical procedure (medical condition or diagnosis) and associated clinical findings, the patient is homebound because of his/her inability to leave home except with aid of a supportive device and/or person AND leaving the home requires a considerable and taxing effort or is medically contraindicated. Pt req the following assistanc: [facility] Nursing Orders Home Health Services Order: Nursing Services, Diesel Dinkey Operator-Evaluate & Treat, Physical Therapy-Evaluate & Treat Home Health Infusion Therapy Line Start Date: Apr 17, 2022 Certify Stmt I certify that this patient is under my care and that I, a nurse practitioner or a physician; a child and youth program assistant working with me, had a face to face encounter that - meets the physician face to face encounter requirements with this patient as dated. JESÚS MCCLOUD DO Apr 21, 2022 10:55
--- NOTE | 2022-04-21 10:56 | Discharge Summary ---
Discharge Summary Hospital Course Was the Problem List Reviewed?: Yes Problems/Dx: (1) Diabetes mellitus with hyperglycemia, with long-term current use of insulin Status: Acute (2) Dehydration Status: Resolved Hospital Course Date of Admission: Apr 18, 2022 at 04:35 Admission Diagnosis : Family Physician/Provider: Patricio Barnard MD Date of Discharge: 04/21/22 Discharge Diagnosis: hypoerglycemia, UTI, debility, murmur, CAD s/p stent placement Hospital Course: Pt had an uneventful 4 day hospital course when she was admitted for hyperglycemia and weakness. Pt was placed on protocol of supportive care. She was found to have accidentally overdosed on some medication. She was very drowsy but that passed. Cardiology was consulted for a murmur and cardiac dysfunction. She was found to have an abnormal stress test. She underwent cardiac catheterization with stent placement. Overall she was able to navigate with PT and OT. She was deemed stable for discharge on home health. She will have close follow up with PCP and cardiology. Labs and Pending Lab Test: Laboratory Tests 04/20/22 17:39: Glucometer 119H 04/20/22 20:42: Glucometer 168H 04/21/22 04:57: Glucometer 165H 04/21/22 06:30: White Blood Count 7.2, Red Blood Count 3.66L, Hemoglobin 10.2L, Hematocrit 35, Mean Corpuscular Volume 95, Mean Corpuscular Hemoglobin 28, Mean Corpuscular Hemoglobin Concent 30L, Red Cell Distribution Width 14.8H, Platelet Count 308, Mean Platelet Volume 10.7, Immature Granulocyte % (Auto) 0, Neutrophils (%) (Auto) 71, Lymphocytes (%) (Auto) 15, Monocytes (%) (Auto) 8, Eosinophils (%) (Auto) 5, Basophils (%) (Auto) 1, Neutrophils # (Auto) 5.2, Lymphocytes # (Auto) 1.1, Monocytes # (Auto) 0.6, Eosinophils # (Auto) 0.3, Basophils # (Auto) 0.0, Immature Granulocyte # (Auto) 0.0, Percent Immature Platelet Fraction 2.0, Sodium Level 139, Potassium Level 4.0, Chloride Level 98, Carbon Dioxide Level 29, Anion Gap 12, Blood Urea Nitrogen 19H, Creatinine 1.29, Estimat Glomerular Filtration Rate 45, BUN/Creatinine Ratio 15, Glucose Level 178H, Calcium Level 8.4L, Magnesium Level 2.0, Total Bilirubin 0.5, Direct Bilirubin 0.2, Indirect Bilirubin 0.3, Aspartate Amino Transf (AST/SGOT) 18, Alanine Aminotransferase (ALT/SGPT) 9, Alkaline Phosphatase 126, Total Protein 5.9L, Albumin 2.8L, Triglycerides Level 132, Cholesterol Level 185, LDL Cholesterol Direct 110, VLDL Cholesterol 26, HDL Cholesterol 44 04/21/22 07:51: Glucometer 150H Microbiology 04/18/22 Urine Culture - Final, Complete Escherichia coli Home Meds Active Klor-Con M20 (Potassium Chloride) 20 Meq Tab.er.prt 20 Meq PO DAILY@0700 Children's Aspirin (Aspirin) 81 Mg Tab.chew 81 Mg PO DAILY Amlodipine Besylate 5 Mg Tablet 5 Mg PO DAILY Atorvastatin Calcium 10 Mg Tablet 10 Mg PO HS Clopidogrel (Clopidogrel Bisulfate) 75 Mg Tablet 75 Mg PO DAILY Reported Melatonin 5 Mg Tablet 5 Mg PO HS PRN Levemir Flextouch (Insulin Detemir) 100 Unit/Ml (3 Ml) Insuln.pen 20 Unit SQ HS Novolog (Insulin Aspart) 100 Unit/Ml Cartridge 14 Units SQ TIDWM Tylenol Extra Strength (Acetaminophen) 500 Mg Tablet 500 Mg PO Q8H PRN Losartan Potassium 100 Mg Tablet 100 Mg PO DAILY Venlafaxine HCl 37.5 Mg Tab 37.5 Mg PO TID Neurontin (Gabapentin) 300 Mg Capsule 600 Mg PO 1200 TAKES 2 (300MG) CAPS Neurontin (Gabapentin) 300 Mg Capsule 300 Mg PO BID Furosemide 20 Mg Tablet 20 Mg PO DAILY Levothyroxine (Levothyroxine Sodium) 125 Mcg Capsule 125 Mcg PO DAILY Carvedilol 6.25 Mg Tablet 6.25 Mg PO BID Zolpidem Tartrate 5 Mg Tablet 5 Mg PO HS Proair Hfa (Albuterol Sulfate) 1 Puff Puff 2 Puff IH Q4H PRN Assessment/Pt Instructions pcp 1week Discharge Planning: <30 minutes discharge planning Discharge Instructions Discharge Diet: No Restrictions Discharge Physical Examination Vital Signs Vital Signs Date Time Temp Pulse Resp B/P (MAP) Pulse Ox O2 Delivery O2 Flow Rate FiO2 04/21/22 07:45 Nasal Cannula 2.00 04/21/22 07:43 36.5 76 20 184/84 (832) 95 General Appearance: No Apparent Distress, WD/WN, Chronically ill, Obese Respiratory: Lungs Clear, Normal Breath Sounds Cardiovascular: Regular Rate, Rhythm Allergies: Coded Allergies: ceftriaxone (Verified Allergy, Intermediate, N/V/D, 04/18/22) adhesive tape (Unverified Allergy, Unknown, 12/24/19) codeine (Verified Allergy, Unknown, 12/24/19) morphine (Verified Allergy, Unknown, 12/24/19) penicillin G (Verified Allergy, Unknown, 12/24/19) Discharge Summary Date of Admission Apr 18, 2022 at 04:35 Date of Discharge Discharge Date: Apr 21, 2022 Admission Diagnosis Assessment: OD CHF Edema DM OOC Plan: Monitor closely Hakeem Flores consult Discharge Diagnosis Assessment: OD CHF Edema DM OOC Memory loss Anxiety Depression Debility Plan: Monitor closely Hakeem Flores consult Insulin Monitor closely EST today (1) Diabetes mellitus with hyperglycemia, with long-term current use of insulin Status: Acute (2) Dehydration Status: Resolved JESÚS MCCLOUD DO Apr 21, 2022 10:56
[2022-04-21] MEDS ORDERED: LEVO500T81 PO (10:57)
[2022-04-21 11:03] VITALS: BP 121/61
[2022-04-21 13:46] VITALS: BP 121/61
[2022-04-21] MEDS ORDERED: AtorvaSTATin TABLET 10 MG TABLET PO SCH (21:00)
--- NOTE | 2022-04-22 11:24 | Physician Query Clarification ---
PQ-CHF Specificity Admission Date: Apr 18, 2022 at 04:35 Discharge Date: Apr 21, 2022 at 14:47 Dr. Monsivais, The medical record reflects the following clinical scenario: History/Risk Factors: accidental OD, HTN w/CHF/CKD, CAD w/angina, DM Clinical Findings: BNP 60879.0, heart cath - Significant elevation of left ventricular end- diastolic pressure and pulmonary wedge pressure, indicating congestive heart failure, probably both systolic and diastolic. Treatment: IVP 80 mg Lasix Question: Can you further specify the acuity &/or type of CHF per the clinical indicators above? Please document a response in the Progress Notes or Discharge Summary. 1. Acuity: Acute, Chronic or Acute on Chronic 2. Type: Systolic, Diastolic or Systolic & Diastolic 3. Unspecified: CHF cannot be further specified regarding type or acuity 4. Other, with explanation of clinical findings 5. Clinically undetermined, no explanation for clinical findings PHYSICIAN RESPONSE Acuity: Chronic Type: Systolic & Diastolic In responding to this query, please exercise your independent professional judgment. The purpose of this communication is to more accurately reflect the complexity of your patients condition. The fact that a question is asked does not imply that any particular answer is desired or expected. Thank you for your timely response to this clarification. Requestors name: Alexander THIS PHYSICIAN QUERY FORM IS A PERMANENT PART OF THE MEDICAL RECORD ALEXANDER TOLLIVER Apr 22, 2022 11:24 TRACEY MONSIVAIS MD [facility] Apr 28, 2022 14:28
== END 2022-04-21 14:47 | disposition home health service (06) | DRG 982 ==
LOC: EDUNIT# 22:56 → ER FS 22:59 → 4TH 04-18 04:35 → CSD 04-20 17:03 → 4TH 04-20 21:23
PROVIDERS: ADMIT Internal Medicine; ATTEND Internal Medicine
PROC: 027034Z Dilation of Coronary Artery, One Artery with Drug-eluting Intraluminal Device, Percutaneous Approach (ICD-10-PCS; principal; 2022-04-20)
PROC: 4A023N6 Measurement of Cardiac Sampling and Pressure, Right Heart, Percutaneous Approach (ICD-10-PCS; 2022-04-20)
PROC: 4A023N7 Measurement of Cardiac Sampling and Pressure, Left Heart, Percutaneous Approach (ICD-10-PCS; 2022-04-20)
PROC: B2151ZZ Fluoroscopy of Left Heart using Low Osmolar Contrast (ICD-10-PCS; 2022-04-20)
PROC: B2111ZZ Fluoroscopy of Multiple Coronary Arteries using Low Osmolar Contrast (ICD-10-PCS; 2022-04-20)
DX: T42.6X1A Poisoning by other antiepileptic and sedative-hypnotic drugs, accidental (unintentional), initial encounter (principal); I13.0 Hypertensive heart and chronic kidney disease with heart failure and stage 1 through stage 4 chronic kidney disease, or unspecified chronic kidney disease; Z68.41 Body mass index [BMI] 40.0-44.9, adult; N39.0 Urinary tract infection, site not specified; I50.42 Chronic combined systolic (congestive) and diastolic (congestive) heart failure; T38.3X1A Poisoning by insulin and oral hypoglycemic [antidiabetic] drugs, accidental (unintentional), initial encounter; R40.0 Somnolence; E11.22 Type 2 diabetes mellitus with diabetic chronic kidney disease; E11.65 Type 2 diabetes mellitus with hyperglycemia; N18.9 Chronic kidney disease, unspecified; E11.40 Type 2 diabetes mellitus with diabetic neuropathy, unspecified; E66.01 Morbid (severe) obesity due to excess calories; I27.20 Pulmonary hypertension, unspecified; I25.119 Atherosclerotic heart disease of native coronary artery with unspecified angina pectoris; D64.9 Anemia, unspecified; I08.3 Combined rheumatic disorders of mitral, aortic and tricuspid valves; E86.0 Dehydration; E78.5 Hyperlipidemia, unspecified; E03.9 Hypothyroidism, unspecified; I97.2 Postmastectomy lymphedema syndrome; J44.9 Chronic obstructive pulmonary disease, unspecified; Z79.4 Long term (current) use of insulin; Z85.3 Personal history of malignant neoplasm of breast; Z90.11 Acquired absence of right breast and nipple; Z99.81 Dependence on supplemental oxygen; Z88.1 Allergy status to other antibiotic agents; Z88.5 Allergy status to narcotic agent; Z88.0 Allergy status to penicillin; Z91.048 Other nonmedicinal substance allergy status; Y92.009 Unspecified place in unspecified non-institutional (private) residence as the place of occurrence of the external cause
CPT/HCPCS: 36415; 71045; 78452; 80048; 80053; 80061; 80076; 81000; 82947; 83735; 83880; 84484; 85025; 87077; 87088; 87186; 93005; 93017; 93041; 93306; 93460; 96374; 96375

== ENCOUNTER 2022-04-21 22:14 | Emergency (ER) | payer MEDICARE, MEDICAID ==
[~2022-04-21] VITALS: Ht 160 cm; Wt 99.0 kg
[~2022-04-21 22:14] MED LIST changes: +ACET-2267 PO; +ASPI81TA64 PO; +ATOR10TA66 PO; +CARV6.252 PO; +CLOP75TA28 PO; +FURO20TA4 PO; +INSU100C3 SQ; +INSU100I29 SQ; +LEVO125C4 PO; +LEVO500T81 PO; +LOSA100T57 PO; +MELA5TAB14 PO; +POTA-169 PO; +VNL37.5T PO; +ZOLP5TAB7 PO
--- NOTE | 2022-04-21 22:42 | ED Integumentary General ---
General Chief Complaint: Skin/Wound Problems Stated Complaint: ABD LAC/BLEEDING Nursing Triage Note: PATIENT STATES HAS AN AREA ON ABDOMEN THAT WONT QUIT BLEEDING. PATIENT STATES STARTED BLOOD THINNER ON TUESDAY. Source: patient, EMS History of Present Illness Date Seen by Provider: Apr 21, 2022 Time Seen by Provider: 22:16 Initial Comments 71-year-old female presenting to the emergency department by EMS. She was just discharged from hospital today after having a heart cath and getting started on blood thinners. She has a small area on her left lower abdomen that she has not been able to get stop bleeding. She is not having fever, chills, abdominal pain, nausea, vomiting. Timing/Duration: this afternoon Severity: mild Location: torso (Left lower abdomen) Possible Cause: no cause identified Associated Symptoms: No blisters, No change in skin texture, No fever, No flushing, No headache, No hives, No jaundice, No malaise, No nasal congestion, No numbness, No pallor, No paresthesia, No petechiae, No rash, No sore throat Allergies and Home Medications Allergies Coded Allergies: ceftriaxone (Verified Allergy, Intermediate, N/V/D, 04/18/22) adhesive tape (Unverified Allergy, Unknown, 12/24/19) codeine (Verified Allergy, Unknown, 12/24/19) morphine (Verified Allergy, Unknown, 12/24/19) penicillin G (Verified Allergy, Unknown, 12/24/19) Patient Home Medication List Home Medication List Reviewed: Yes Acetaminophen (Tylenol Extra Strength) 500 Mg Tablet, 500 MG PO Q8H PRN for PAIN-MILD (1-4), (Reported) Entered as Reported by: BRAXTON STYLES on 04/19/22 1347 Albuterol Sulfate (Proair Hfa) 1 Puff Puff, 2 PUFF IH Q4H PRN for SHORTNESS OF BREATH, (Reported) Entered as Reported by: BASHIR SALEH on 09/15/21 1043 Amlodipine Besylate (Amlodipine Besylate) 5 Mg Tablet, 5 MG PO DAILY Prescribed by: JESÚS MCCLOUD on 04/21/22 1054 Aspirin (Children's Aspirin) 81 Mg Tab.chew, 81 MG PO DAILY Prescribed by: JESÚS MCCLOUD on 04/21/22 1054 Atorvastatin Calcium (Atorvastatin Calcium) 10 Mg Tablet, 10 MG PO HS Prescribed by: JESÚS MCCLOUD on 04/21/22 1054 Carvedilol (Carvedilol) 6.25 Mg Tablet, 6.25 MG PO BID, (Reported) Entered as Reported by: BRAXTON STYLES on 04/19/22 134 Clopidogrel Bisulfate (Clopidogrel) 75 Mg Tablet, 75 MG PO DAILY Prescribed by: JESÚS MCCLOUD on 04/21/22 1054 Furosemide (Furosemide) 20 Mg Tablet, 20 MG PO DAILY, (Reported) Entered as Reported by: BRAXTON STYLES on 04/19/22 134 Gabapentin (Neurontin) 300 Mg Capsule, 300 MG PO BID, (Reported) Entered as Reported by: BRAXTON STYLES on 04/19/22 134 Gabapentin (Neurontin) 300 Mg Capsule, 600 MG PO 1200, (Reported) Entered as Reported by: BRAXTON STYLES on 04/19/22 134 Insulin Aspart (Novolog) 100 Unit/Ml Cartridge, 14 UNITS SQ TIDWM, (Reported) Entered as Reported by: BRAXTON STYLES on 04/19/22 134 Insulin Detemir (Levemir Flextouch) 100 Unit/Ml (3 Ml) Insuln.pen, 20 UNIT SQ HS, (Reported) Entered as Reported by: BRAXTON STYLES on 04/19/22 134 Levofloxacin (Levofloxacin) 500 Mg Tablet, 500 MG PO DAILY Prescribed by: JESÚS MCCLOUD on 04/21/22 105 Levothyroxine Sodium (Levothyroxine) 125 Mcg Capsule, 125 MCG PO DAILY, (Reported) Entered as Reported by: BRAXTON STYLES on 04/19/22 134 Losartan Potassium (Losartan Potassium) 100 Mg Tablet, 100 MG PO DAILY, (Reported) Entered as Reported by: BRAXTON STYLES on 04/19/22 134 Melatonin (Melatonin) 5 Mg Tablet, 5 MG PO HS PRN for SLEEP, (Reported) Entered as Reported by: BRAXTON STYLES on 04/19/22 134 Potassium Chloride (Klor-Con M20) 20 Meq Tab.er.prt, 20 MEQ PO DAILY@0700 Prescribed by: JESÚS MCCLOUD on 04/21/22 105 Venlafaxine HCl (Venlafaxine HCl) 37.5 Mg Tab, 37.5 MG PO TID, (Reported) Entered as Reported by: BRAXTON STYLES on 04/19/22 1346 Zolpidem Tartrate (Zolpidem Tartrate) 5 Mg Tablet, 5 MG PO HS, (Reported) Entered as Reported by: BRAXTON STYLES on 04/19/22 1344 Review of Systems Review of Systems Constitutional: No chills, No fever EENTM: no symptoms reported Respiratory: no symptoms reported Cardiovascular: no symptoms reported Gastrointestinal: no symptoms reported Genitourinary: no symptoms reported Musculoskeletal: no symptoms reported Skin: see HPI Psychiatric/Neurological: No Symptoms Reported Past Hvslmnj-[id number]-Njtnqz Hx Immunizations Up To Date First/Initial COVID19 Vaccinat: Moderna Second COVID19 Vaccination Alok: Moderna Third COVID19 Vaccination Date: Seasonal Allergies Seasonal Allergies: No Past Medical History Surgery/Hospitalization HX: IDDM Surgeries: Yes (R Masectomy, R Augmentation, ) Gallbladder, Hysterectomy, Orthopedic, Thyroidectomy Respiratory: No Cardiac: No (Lymphedema) Neurological: No 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 Disorders: No HA[employer]ING [employer]TER History: Hysterectomy Genitourinary: No Gastrointestinal: No Musculoskeletal: Yes (ARTHRITIS) Arthritis Endocrine: Yes Diabetes, Insulin dep HEENT: No Cancer: Yes Breast Did You Recieve Any Treatments: Yes What Type of Treatment Did You: Surgical Intervention Psychosocial: No Integumentary: No Blood Disorders: No Family Medical History Cancer Physical Exam Vital Signs Vital Signs - First Documented 04/21/22 04/21/22 22:22 23:07 Temp 37.0 Pulse 72 Resp 20 B/P (MAP) 183/63 (103) Pulse Ox 100 O2 Delivery Room Air Capillary Refill : Less Than 3 Seconds General Appearance: no apparent distress, obese Cardiovascular: normal peripheral pulses Gastrointestinal: normal bowel sounds, non tender, soft, no pulsatile mass, other (Left lower abdominal wall has a 2 mm area of the skin that appears to be a hemangioma that continues to bleed despite holding pressure and cleaning the wound. There is no obvious excoriation or laceration. No fluctuance or signs of infection.) Neurologic/Psychiatric: alert Skin: warm/dry Procedures/Interventions Progress Small hemangioma on the left lower abdomen was bleeding and a silver nitrate cautery stick was used to cauterize the area. Bleeding controlled and no further bleeding while here in the ED. Counseled on follow-up and return precautions. Progress/Results/Core Measures Results/Orders Vital Signs/I&O 04/21/22 04/21/22 22:22 23:07 Temp 37.0 Pulse 72 Resp 20 20 B/P (MAP) 183/63 (103) 183/63 Pulse Ox 100 100 O2 Delivery Room Air Room Air Blood Pressure Mean: 103 Progress Progress Note : Progress Note Using a silver nitrate cautery stick the 2 mm area of bleeding was cauterized. After this she had no further bleeding and remained stable so she was discharged home and counseled on follow-up and return precautions. Departure Impression Primary Impression: Hemangioma of abdominal wall Disposition: HOME, SELF-CARE Condition: Stable Departure-Patient Inst. Decision time for Depature: 22:41 Referrals: SELF,BERNADINE CAMPOS (PCP/Family) Primary Care Physician Patient Instructions: Going Home on Blood Thinners , Hemangioma (DC) Add. Discharge Instructions: The area of bleeding has stopped with cauterizing it here in the ED. If your bleeding continues or returns then you could try holding pressure with an ice pack to get the bleeding to stop. If you continue to have bleeding and things are still not improving then check back with the clinic or return as you may need to have the area cauterized again. All discharge instructions reviewed with patient and/or family. Voiced understanding. SILVIA KOEHLER MD Apr 21, 2022 22:42
[2022-04-21 23:07] VITALS: BP 183/63
== END 2022-04-21 23:09 | disposition home or self-care (01) ==
LOC: EDUNIT# 22:14 → ER FS 22:15
DX: D18.09 Hemangioma of other sites (principal); E11.9 Type 2 diabetes mellitus without complications; Z79.4 Long term (current) use of insulin; Z90.710 Acquired absence of both cervix and uterus
CPT/HCPCS: 99283

== ENCOUNTER 2022-04-22 13:33 | Emergency (ER) | payer MEDICARE, MEDICAID ==
--- NOTE | 2022-04-22 13:43 | ED Chest Pain ---
General Stated Complaint: CHEST PAIN, SOB History of Present Illness Date Seen by Provider: Apr 22, 2022 Time Seen by Provider: 13:38 Initial Comments 71-year-old female presents with some complaints of possible rapid heart rate, mild chest pain and mild shortness of breath. Patient was discharged yesterday from [facility] following a stent placement on 04/20/2022. Patient reports that her home health care nurse states that her heart rate was in the 160s she was found chest pain and felt short of breath. Patient states she still feels a little bit short of breath at this time. Patient denies any fever, chills, nausea or vomiting. Allergies and Home Medications Allergies Coded Allergies: ceftriaxone (Verified Allergy, Intermediate, N/V/D, 04/18/22) adhesive tape (Unverified Allergy, Unknown, 12/24/19) codeine (Verified Allergy, Unknown, 12/24/19) morphine (Verified Allergy, Unknown, 12/24/19) penicillin G (Verified Allergy, Unknown, 12/24/19) Patient Home Medication List Home Medication List Reviewed: Yes Acetaminophen (Tylenol Extra Strength) 500 Mg Tablet, 500 MG PO Q8H PRN for PAIN-MILD (1-4), (Reported) Entered as Reported by: BRAXTON STYLES on 04/19/22 1347 Albuterol Sulfate (Proair Hfa) 1 Puff Puff, 2 PUFF IH Q4H PRN for SHORTNESS OF BREATH, (Reported) Entered as Reported by: BASHIR SALEH on 09/15/21 1043 Amlodipine Besylate (Amlodipine Besylate) 5 Mg Tablet, 5 MG PO DAILY Prescribed by: JESÚS MCCLOUD on 04/21/22 1054 Aspirin (Children's Aspirin) 81 Mg Tab.chew, 81 MG PO DAILY Prescribed by: JESÚS MCCLOUD on 04/21/22 1054 Atorvastatin Calcium (Atorvastatin Calcium) 10 Mg Tablet, 10 MG PO HS Prescribed by: EJSÚS MCCLOUD on 04/21/22 1054 Carvedilol (Carvedilol) 6.25 Mg Tablet, 6.25 MG PO BID, (Reported) Entered as Reported by: BRAXTON STYLES on 04/19/22 1344 Clopidogrel Bisulfate (Clopidogrel) 75 Mg Tablet, 75 MG PO DAILY Prescribed by: JESÚS MCCLOUD on 04/21/22 1054 Furosemide (Furosemide) 20 Mg Tablet, 20 MG PO DAILY, (Reported) Entered as Reported by: BRAXTON STYLES on 04/19/22 1345 Gabapentin (Neurontin) 300 Mg Capsule, 300 MG PO BID, (Reported) Entered as Reported by: BRAXTON STYLES on 04/19/22 1345 Gabapentin (Neurontin) 300 Mg Capsule, 600 MG PO 1200, (Reported) Entered as Reported by: BRAXTON STYLES on 04/19/22 1346 Insulin Aspart (Novolog) 100 Unit/Ml Cartridge, 14 UNITS SQ TIDWM, (Reported) Entered as Reported by: BRAXTON STYLES on 04/19/22 1348 Insulin Detemir (Levemir Flextouch) 100 Unit/Ml (3 Ml) Insuln.pen, 20 UNIT SQ HS, (Reported) Entered as Reported by: BRAXTON STYLES on 04/19/22 134 Levofloxacin (Levofloxacin) 500 Mg Tablet, 500 MG PO DAILY Prescribed by: JESÚS MCCLOUD on 04/21/22 1057 Levothyroxine Sodium (Levothyroxine) 125 Mcg Capsule, 125 MCG PO DAILY, (Reported) Entered as Reported by: BRAXTON STYLES on 04/19/22 134 Losartan Potassium (Losartan Potassium) 100 Mg Tablet, 100 MG PO DAILY, (Reported) Entered as Reported by: BRAXTON STYLES on 04/19/22 134 Melatonin (Melatonin) 5 Mg Tablet, 5 MG PO HS PRN for SLEEP, (Reported) Entered as Reported by: BRAXTON STYLES on 04/19/22 134 Potassium Chloride (Klor-Con M20) 20 Meq Tab.er.prt, 20 MEQ PO DAILY@0700 Prescribed by: JESÚS MCCLOUD on 04/21/22 1054 Venlafaxine HCl (Venlafaxine HCl) 37.5 Mg Tab, 37.5 MG PO TID, (Reported) Entered as Reported by: BRAXTON STYLES on 04/19/22 1346 Zolpidem Tartrate (Zolpidem Tartrate) 5 Mg Tablet, 5 MG PO HS, (Reported) Entered as Reported by: BRAXTON STYLES on 04/19/22 1344 Review of Systems Review of Systems Constitutional: No chills, No fever Respiratory: Denies Cough, Denies Shortness of Air Cardiovascular: Chest Pain, Palpitations Gastrointestinal: No Symptoms Reported Genitourinary: No Symptoms Reported Musculoskeletal: no symptoms reported Skin: no symptoms reported Psychiatric/Neurological: No Symptoms Reported Physical Exam Vital Signs Vital Signs - First Documented 04/22/22 13:40 Temp 36.5 Pulse 76 Resp 18 B/P (MAP) 138/107 (117) Pulse Ox 100 O2 Delivery Room Air Capillary Refill : Height, Weight, BMI Height: '" Weight: lbs. oz. 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0-12.2 fL Immature Granulocyte % (Auto) 1 % Neutrophils (%) (Auto) 73 42-75 % Lymphocytes (%) (Auto) 17 12-44 % Monocytes (%) (Auto) 6 0-12 % Eosinophils (%) (Auto) 3 0-10 % Basophils (%) (Auto) 1 0-10 % Neutrophils # (Auto) 5.7 1.8-7.8 10^3/uL Lymphocytes # (Auto) 1.3 1.0-4.0 10^3/uL Monocytes # (Auto) 0.4 0.0-1.0 10^3/uL Eosinophils # (Auto) 0.2 0.0-0.3 10^3/uL Basophils # (Auto) 0.1 0.0-0.1 10^3/uL Immature Granulocyte # (Auto) 0.1 0.0-0.1 10^3/uL Sodium Level 139 135-145 MMOL/L Potassium Level 3.8 3.6-5.0 MMOL/L Chloride Level 95 L 98-107 MMOL/L Carbon Dioxide Level 32 21-32 MMOL/L Anion Gap 12 5-14 MMOL/L Blood Urea Nitrogen 24 H 7-18 MG/DL Creatinine 1.51 H 0.60-1.30 MG/DL Estimat Glomerular Filtration Rate 37 BUN/Creatinine Ratio 16 Glucose Level 276 H 70-105 MG/DL Calcium Level 8.8 8.5-10.1 MG/DL Corrected Calcium 9.4 8.5-10.1 MG/DL Magnesium Level 1.9 1.6-2.4 MG/DL Total Bilirubin 0.4 0.1-1.0 MG/DL Aspartate Amino Transf (AST/SGOT) 14 5-34 U/L Alanine Aminotransferase (ALT/SGPT) 7 0-55 U/L Alkaline Phosphatase 141 H 40-136 U/L Troponin I < 0.30 < 0.30 <0.30 NG/ML Total Protein 6.2 L 6.4-8.2 GM/DL Albumin 3.2 3.2-4.5 GM/DL SARS-CoV-2 RNA (RT-PCR) Not Detected Not Detecte My Orders Orders - FAUST,SAE L DO Chest 1 View Ap/Pa Only (04/22/22 13:45) Cbc With Automated Diff (04/22/22 13:45) Comprehensive Metabolic Panel (04/22/22 13:45) Magnesium (04/22/22 13:45) Troponin I Fs (04/22/22 13:45) Covid 19 Inhouse Test (04/22/22 13:45) Troponin I Fs (04/22/22 16:00) Vital Signs/I&O 04/22/22 13:40 Temp 36.5 Pulse 76 Resp 18 B/P (MAP) 138/107 (117) Pulse Ox 100 O2 Delivery Room Air Progress Progress Note : Progress Note Patient did not have any tachycardia as described by home health care nurse. Patient with no symptoms throughout her ER stay. Patient's oxygen on 2 L remained in the upper 90s to 100% where she is normally on 3 L at home. Patient had negative EKG and 2 negative troponins. I did call and discussed with cardiology on-call at [address] and he did not feel likely any be nefit from admission and observation as it was unlikely cardiac in nature. Patient stable and discharged home Initial ECG Impression Date: Apr 22, 2022 Initial ECG Impression Time: 13:42 Initial ECG Rate: 80 Initial ECG Rhythm: Normal Sinus Initial ECG Impression: Nonspecific Changes Comment no acute changes Departure Impression Primary Impression: Chronic dyspnea Disposition: 01 HOME, SELF-CARE Condition: Stable Departure-Patient Inst. Patient Instructions: Shortness of Breath (Dyspnea) Add. Discharge Instructions: Follow-up with your primary care provider next week Return to the ER with any concern SAE FAUST DO Apr 22, 2022 13:42
[2022-04-22 13:57] LABS: BASOPHILS # (AUTO) 0.1 10^3/uL (0.0-0.1); BASOPHILS % (AUTO) 1 % (0-10); EOSINOPHILS # (AUTO) 0.2 10^3/uL (0.0-0.3); EOSINOPHILS % (AUTO) 3 % (0-10); HEMATOCRIT 30 % (35-52); HEMOGLOBIN 9.3 g/dL (11.5-16.0); LYMPHOCYTES # (AUTO) 1.3 10^3/uL (1.0-4.0); LYMPHOCYTES % (AUTO) 17 % (12-44); MEAN CORPUSCULAR HEMOGLOBIN 27 pg (25-34); MEAN CORPUSCULAR HGB CONC 31 g/dL (32-36); MEAN CORPUSCULAR VOLUME 87 fL (80-99); MEAN PLATELET VOLUME 9.6 fL (9.0-12.2); MONOCYTES # (AUTO) 0.4 10^3/uL (0.0-1.0); MONOCYTES % (AUTO) 6 % (0-12); NEUTROPHILS # (AUTO) 5.7 10^3/uL (1.8-7.8); NEUTROPHILS % (AUTO) 73 % (42-75); PLATELET COUNT 332 10^3/uL (130-400); WHITE BLOOD COUNT 7.8 10^3/uL (4.3-11.0)
--- NOTE | 2022-04-22 14:08 | Diagnostic Imaging Report ---
INDICATION: Chest pain, shortness of air COMPARISON: 04/17/2022 FINDINGS: The heart is mildly enlarged. There is some prominence of the central vascularity is patchy infiltrate or atelectasis medial left lung base unchanged from prior. Right lung clear. IMPRESSION: No real change in patchy left basilar opacity. Upper limits heart size and venous caliber with no appreciable pleural fluid, pneumothorax or substantial change. Dictated by: Dictated on workstation # [id number]
[2022-04-22 14:47] LABS: POTASSIUM 3.8 MMOL/L (3.6-5.0); SODIUM 139 MMOL/L (135-145)
[2022-04-22 14:48] LABS: ALANINE AMINOTRANSFERASE 7 U/L (0-55); ALBUMIN 3.2 GM/DL (3.2-4.5); ALKALINE PHOSPHATASE 141 U/L (40-136); BILIRUBIN,TOTAL 0.4 MG/DL (0.1-1.0); BUN/CREATININE RATIO 16; CALCIUM 8.8 MG/DL (8.5-10.1); CARBON DIOXIDE 32 MMOL/L (21-32); CHLORIDE 95 MMOL/L (98-107); CREATININE SERUM 1.51 MG/DL (0.60-1.30); GFR ESTIMATED 37; GLUCOSE 276 MG/DL (70-105); MAGNESIUM 1.9 MG/DL (1.6-2.4); TOTAL PROTEIN 6.2 GM/DL (6.4-8.2)
[2022-04-22 16:49] VITALS: BP 122/97
== END 2022-04-22 16:51 | disposition home or self-care (01) ==
LOC: EDUNIT# 13:33 → ER FS 13:38
DX: R06.09 Other forms of dyspnea (principal); Z20.822 Contact with and (suspected) exposure to COVID-19; Z99.81 Dependence on supplemental oxygen
CPT/HCPCS: 36415; 71045; 80053; 83735; 84484; 85025; 87636; 93005

== ENCOUNTER 2022-06-17 11:53 | Inpatient (IN) | payer MEDICARE, MEDICAID ==
[~2022-06-17] VITALS: Ht 160 cm; Wt 134.4 kg
[~2022-06-17 11:53] MED LIST changes: +LEVO-55 PO; -LEVO500T81 PO
--- NOTE | 2022-06-17 11:59 | ED General ---
General Stated Complaint: FALL; WEAKNESS History of Present Illness Date Seen by Provider: Jun 17, 2022 Time Seen by Provider: 11:58 Initial Comments 71-year-old female presents with some generalized weakness. Patient has had 2 falls this morning. She is on Plavix. She has some bruising on the right side of her face from her initial fall this morning. She then slid out of bed and fell again. Patient has known chronic COPD and dyspnea and is on normally 2 L and is had to increase her O2. She is also complaining of some dysuria with urination for the last couple days. No reports of fever, chills, nausea or vomiting. She does have chronic lymphedema in her left arm. Once family arrived, they also reported that since Tuesday about 5 6 days ago she started having some increased cellulitis and warmth to the left upper arm. She does have a history of prior left arm cellulitis. Allergies and Home Medications Allergies Coded Allergies: ceftriaxone (Verified Allergy, Intermediate, N/V/D, 04/18/22) adhesive tape (Unverified Allergy, Unknown, 12/24/19) codeine (Verified Allergy, Unknown, 12/24/19) morphine (Verified Allergy, Unknown, 12/24/19) penicillin G (Verified Allergy, Unknown, 12/24/19) Patient Home Medication List Home Medication List Reviewed: Yes Acetaminophen (Tylenol Extra Strength) 500 Mg Tablet, 500 MG PO Q8H PRN for PAIN-MILD (1-4), (Reported) Entered as Reported by: BRAXTON STYLES on 04/19/22 1347 Albuterol Sulfate (Proair Hfa) 1 Puff Puff, 2 PUFF IH Q4H PRN for SHORTNESS OF BREATH, (Reported) Entered as Reported by: BASHIR SALEH on 09/15/21 1043 Amlodipine Besylate (Amlodipine Besylate) 5 Mg Tablet, 5 MG PO DAILY Prescribed by: JESÚS MCCLOUD on 04/21/22 1054 Aspirin (Children's Aspirin) 81 Mg Tab.chew, 81 MG PO DAILY Prescribed by: JESÚS MCCLOUD on 04/21/22 1054 Atorvastatin Calcium (Atorvastatin Calcium) 10 Mg Tablet, 10 MG PO HS Prescribed by: JESÚS MCCLOUD on 04/21/22 1054 Carvedilol (Carvedilol) 6.25 Mg Tablet, 6.25 MG PO BID, (Reported) Entered as Reported by: BRAXTON STYLES on 04/19/22 1344 Clopidogrel Bisulfate (Clopidogrel) 75 Mg Tablet, 75 MG PO DAILY Prescribed by: JESÚS MCCLUOD on 04/21/22 1054 Furosemide (Furosemide) 20 Mg Tablet, 20 MG PO DAILY, (Reported) Entered as Reported by: BRAXTON STYLES on 04/19/22 1345 Gabapentin (Neurontin) 300 Mg Capsule, 300 MG PO BID, (Reported) Entered as Reported by: BRAXTON STYLES on 04/19/22 1345 Gabapentin (Neurontin) 300 Mg Capsule, 600 MG PO 1200, (Reported) Entered as Reported by: BRAXTON STYLES on 04/19/22 134 Insulin Aspart (Novolog) 100 Unit/Ml Cartridge, 14 UNITS SQ TIDWM, (Reported) Entered as Reported by: BRAXTON STYLES on 04/19/22 1348 Insulin Detemir (Levemir Flextouch) 100 Unit/Ml (3 Ml) Insuln.pen, 20 UNIT SQ HS, (Reported) Entered as Reported by: BRAXTON STYLES on 04/19/22 1349 Levofloxacin (Levofloxacin) 500 Mg Tablet, 500 MG PO DAILY Prescribed by: JESÚS MCCLOUD on 04/21/22 1057 Levothyroxine Sodium (Levothyroxine) 125 Mcg Capsule, 125 MCG PO DAILY, (Reported) Entered as Reported by: BRAXTON STYLES on 04/19/22 134 Losartan Potassium (Losartan Potassium) 100 Mg Tablet, 100 MG PO DAILY, (Reported) Entered as Reported by: BRAXTON STYLES on 04/19/22 1347 Melatonin (Melatonin) 5 Mg Tablet, 5 MG PO HS PRN for SLEEP, (Reported) Entered as Reported by: BRAXTON STYLES on 04/19/22 1349 Potassium Chloride (Klor-Con M20) 20 Meq Tab.er.prt, 20 MEQ PO DAILY@0700 Prescribed by: JESÚS MCCLOUD on 04/21/22 1054 Venlafaxine HCl (Venlafaxine HCl) 37.5 Mg Tab, 37.5 MG PO TID, (Reported) Entered as Reported by: BRAXTON STYLES on 04/19/22 1346 Zolpidem Tartrate (Zolpidem Tartrate) 5 Mg Tablet, 5 MG PO HS, (Reported) Entered as Reported by: BRAXTON STYLES on 04/19/22 0804 Review of Systems Review of Systems Constitutional: No chills, No fever; weakness Respiratory: see HPI, dyspnea on exertion, short of breath Cardiovascular: No chest pain, No palpitations Gastrointestinal: No abdominal pain, No nausea, No vomiting Musculoskeletal: back pain (Generalized low back) Skin: see HPI Psychiatric/Neurological: Weakness Past Durtvhz-Qqacjx-Fnilsj Hx Immunizations Up To Date First/Initial COVID19 Vaccinat: Moderna Second COVID19 Vaccination Alok: Moderna Third COVID19 Vaccination Date: a Seasonal Allergies Seasonal Allergies: No Past Medical History Surgery/Hospitalization HX: IDDM Surgeries: Yes (R Masectomy, R Augmentation, ) Gallbladder, Hysterectomy, Orthopedic, Thyroidectomy Respiratory: No Cardiac: No (Lymphedema) Neurological: No 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 Disorders: No 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 oz. kg; 38.00 BMI Method: General Appearance: Chronically ill, Obese, Other (Bruising to the right side of her face) Eyes: Bilateral Eye PERRL, Bilateral Eye EOMI HEENT: Moist Mucous Membranes, Other (Nasal cannula in place) Neck: Other (Small abrasion on his left neck) Respiratory: No Respiratory Distress, Decreased Breath Sounds, Wheezing Cardiovascular: Regular Rate, Rhythm, Other (Lymphedema left arm) Gastrointestinal: Non Tender, Soft Back: No Decreased Range of Motion, No Vertebral Tenderness Extremity: Normal Capillary Refill Neurologic/Psychiatric: Alert, Oriented x3, No Motor/Sensory Deficits, Normal Mood/Affect Skin: Other (Cellulitis left arm) Progress/Results/Core Measures Suspected Sepsis SIRS Temperature: Pulse: Respiratory Rate: Laboratory Tests 06/17/22 12:05: White Blood Count 15.7H Blood Pressure / Mean: Laboratory Tests 06/17/22 12:05: Creatinine 1.88H, Platelet Count 281, Total Bilirubin 0.7 Results/Orders Lab Results Laboratory Tests Test 06/17/22 12:05 06/17/22 14:00 Range/Units White Blood Count 15.7 H 4.3-11.0 10^3/uL Red Blood Count 3.11 L 3.80-5.11 10^6/uL Hemoglobin 8.6 L 11.5-16.0 g/dL Hematocrit 27 L 35-52 % Mean Corpuscular Volume 88 80-99 fL Mean Corpuscular Hemoglobin 28 25-34 pg Mean Corpuscular Hemoglobin Concent 31 L 32-36 g/dL Red Cell Distribution Width 14.6 H 10.0-14.5 % Platelet Count 281 130-400 10^3/uL Mean Platelet Volume 10.5 9.0-12.2 fL Immature Granulocyte % (Auto) 1 % Neutrophils (%) (Auto) 93 H 42-75 % Lymphocytes (%) (Auto) 2 L 12-44 % Monocytes (%) (Auto) 4 0-12 % Eosinophils (%) (Auto) 0 0-10 % Basophils (%) (Auto) 0 0-10 % Neutrophils # (Auto) 14.7 H 1.8-7.8 10^3/uL Lymphocytes # (Auto) 0.3 L 1.0-4.0 10^3/uL Monocytes # (Auto) 0.6 0.0-1.0 10^3/uL Eosinophils # (Auto) 0.0 0.0-0.3 10^3/uL Basophils # (Auto) 0.0 0.0-0.1 10^3/uL Immature Granulocyte # (Auto) 0.1 0.0-0.1 10^3/uL Neutrophils % (Manual) 81 % Lymphocytes % (Manual) 1 % Monocytes % (Manual) 2 % Eosinophils % (Manual) 0 % Basophils % (Manual) 0 % Band Neutrophils 16 % Sodium Level 140 135-145 MMOL/L Potassium Level 4.7 3.6-5.0 MMOL/L Chloride Level 105 98-107 MMOL/L Carbon Dioxide Level 23 21-32 MMOL/L Anion Gap 12 5-14 MMOL/L Blood Urea Nitrogen 46 H 7-18 MG/DL Creatinine 1.88 H 0.60-1.30 MG/DL Estimat Glomerular Filtration Rate 29 BUN/Creatinine Ratio 24 Glucose Level 186 H 70-105 MG/DL Calcium Level 8.7 8.5-10.1 MG/DL Corrected Calcium 9.4 8.5-10.1 MG/DL Total Bilirubin 0.7 0.1-1.0 MG/DL Aspartate Amino Transf (AST/SGOT) 24 5-34 U/L Alanine Aminotransferase (ALT/SGPT) 20 0-55 U/L Alkaline Phosphatase 372 H 40-136 U/L Total Protein 6.0 L 6.4-8.2 GM/DL Albumin 3.1 L 3.2-4.5 GM/DL Urine Color YELLOW Urine Clarity CLOUDY Urine pH 5.5 5-9 Urine Specific [place] 1.025 H 1.016-1.022 Urine Protein 3+ H NEGATIVE Urine Glucose (UA) NEGATIVE NEGATIVE Urine Ketones NEGATIVE NEGATIVE Urine Nitrite NEGATIVE NEGATIVE Urine Bilirubin NEGATIVE NEGATIVE Urine Urobilinogen 0.2 < = 1.0 MG/DL Urine Leukocyte Esterase NEGATIVE NEGATIVE Urine RBC (Auto) 2+ H NEGATIVE Urine RBC RARE /HPF Urine WBC 5-10 H /HPF Urine Squamous Epithelial Cells RARE /HPF Urine Crystals NONE /LPF Urine Bacteria LARGE H /HPF Urine Casts PRESENT /LPF Urine Hyaline Casts RARE /LPF Urine Mucus NEGATIVE /LPF Urine Culture Indicated YES My Orders Orders - FAUST,SAE L DO Cbc With Automated Diff (06/17/22 12:01) Comprehensive Metabolic Panel (06/17/22 12:01) Ua Culture If Indicated (06/17/22 12:01) Chest 1 View Ap/Pa Only (06/17/22 12:01) Lumbar Spine 2 Or 3 View (06/17/22 12:01) Pelvis (Ap) (06/17/22 12:01) Albuterol Pre-Mix Nebs (Rt) (Proventil (06/17/22 12:01) Svn Small Volume Nebulizer (06/17/22 12:01) Manual Differential (06/17/22 12:05) Ct Head/Face/Cervical Wo (06/17/22 12:01) Catheter(Urinary) Insert & Ass 03,15 (06/17/22 13:26) Lidocaine 2% (Urojet) (Xylocaine Urojet) (06/17/22 13:30) Blood Culture (06/17/22 13:29) Levofloxacin 500 Mg/100 Ml Iv (Levaquin (06/17/22 13:45) Vancomycin Injection (Vancomycin Injecti (06/17/22 13:45) Ed Admission (Communication) (06/17/22 13:34) Blood Culture (06/17/22 13:44) Urine Culture (06/17/22 14:00) Medications Given in ED Current Medications Medications Dose Ordered Sig/Francy Route Start Time Stop Time Status Last Admin Dose Admin Levofloxacin/ Dextrose 100 ml @ 100 mls/hr ONCE ONCE IV 06/17/22 13:45 06/17/22 14:44 DC 06/17/22 14:01 100 MLS/HR Vancomycin HCl 1000 mg/Sodium Chloride 250 ml @ 250 mls/hr ONCE ONCE IV 06/17/22 13:45 06/17/22 14:44 DC 06/17/22 14:46 250 MLS/HR Vital Signs/I&O 06/17/22 06/17/22 06/17/22 06/17/22 12:00 12:00 12:00 12:00 Temp 36.7 36.7 36.7 Pulse 82 82 82 Resp 20 20 20 B/P (MAP) 136/55 136/55 (82) 136/55 (82) Pulse Ox 90 90 90 O2 Delivery Nasal Cannula Nasal Cannula Nasal Cannula Nasal Cannula O2 Flow Rate 3.50 Capillary Refill : Progress Note : Progress Note Patient with left arm cellulitis. Patient also with likely urinary tract infection. Patient is concerned about her care she can at home and would like to have consideration for placement following her hospitalization. Patient will be hospitalized for IV antibiotics including Levaquin and Vanco due to her allergy to Rocephin. Discussed with Dr. Mccloud who was made aware of patient's request for help with her outpatient care. Patient stable and transferred to [facility] for inpatient management by EMS Departure Impression Primary Impression: Cellulitis of left upper arm Additional Impressions: Chronic dyspnea Urinary tract infection Qualified Codes: N30.01 - Acute cystitis with hematuria Disposition: 30 STILL A PATIENT Condition: Stable Admissions Decision to Admit Reason: Admit from ER (General) Decision to Admit/Date: Jun 17, 2022 Time/Decision to Admit Time: 13:30 Departure-Patient Inst. Referrals: SELF,BERNADINE CAMPOS (PCP/Family) Primary Care Physician SAE FAUST DO Jun 17, 2022 11:59
[2022-06-17] MEDS ORDERED: RT-ALBUTEROL SULF 2.5 MG/3 ML PRE-MIX VIAL INH STA (12:01)
[2022-06-17 12:12] LABS: BASOPHILS % (AUTO) 0 % (0-10); EOSINOPHILS % (AUTO) 0 % (0-10); HEMATOCRIT 27 % (35-52); HEMOGLOBIN 8.6 g/dL (11.5-16.0); LYMPHOCYTES # (AUTO) 0.3 10^3/uL (1.0-4.0); LYMPHOCYTES % (AUTO) 2 % (12-44); MEAN CORPUSCULAR HEMOGLOBIN 28 pg (25-34); MEAN CORPUSCULAR HGB CONC 31 g/dL (32-36); MEAN CORPUSCULAR VOLUME 88 fL (80-99); MEAN PLATELET VOLUME 10.5 fL (9.0-12.2); MONOCYTES # (AUTO) 0.6 10^3/uL (0.0-1.0); MONOCYTES % (AUTO) 4 % (0-12); NEUTROPHILS # (AUTO) 14.7 10^3/uL (1.8-7.8); NEUTROPHILS % (AUTO) 93 % (42-75); PLATELET COUNT 281 10^3/uL (130-400); WHITE BLOOD COUNT 15.7 10^3/uL (4.3-11.0)
[2022-06-17 12:30] LABS: BAND NEUTROPHILS 16 %; BASOPHILS % (MANUAL) 0 %; EOSINOPHILS % (MANUAL) 0 %; LYMPHOCYTES % (MANUAL) 1 %; MONOCYTES % (MANUAL) 2 %; NEUTROPHILS % (MANUAL) 81 %
[2022-06-17 12:33] LABS: ALBUMIN 3.1 GM/DL (3.2-4.5); BILIRUBIN,TOTAL 0.7 MG/DL (0.1-1.0); CALCIUM 8.7 MG/DL (8.5-10.1); CREATININE SERUM 1.88 MG/DL (0.60-1.30); POTASSIUM 4.7 MMOL/L (3.6-5.0)
--- NOTE | 2022-06-17 12:49 | Diagnostic Imaging Report ---
Indication: Pelvic injury from a fall AP view pelvis shows no fracture or dislocation. IMPRESSION: Negative pelvis. Dictated by: Dictated on workstation # [id number]
--- NOTE | 2022-06-17 12:50 | Diagnostic Imaging Report ---
INDICATION: Shortness of breath Portable chest 12:38 PM Heart is mildly enlarged. Pulmonary vascularity is normal. Lungs are clear. IMPRESSION: Cardiomegaly without evidence of pulmonary venous hypertension. Dictated by: Dictated on workstation # [id number]
--- NOTE | 2022-06-17 12:51 | Diagnostic Imaging Report ---
INDICATION: Fall with low back pain. Time of Exam: 12:39 PM 3 views lumbar spine were obtained. Curvature and alignment is normal. Vertebral body heights are maintained. No acute compression fracture seen. There is generalized degenerative disc disease with variable disc space narrowing and marginal spurring. There is multilevel facet arthropathy. Aorta is partially calcified. IMPRESSION: Lumbar spondylosis. No acute bony abnormality is detected. Dictated by: Dictated on workstation # [id number]
--- NOTE | 2022-06-17 13:03 | Diagnostic Imaging Report ---
PROCEDURE: CT head, face, and cervical spine without contrast. TECHNIQUE: Multiple contiguous axial images were obtained through the head, neck, and facial bones without the use of intravenous contrast. Sagittal and coronal reformations through the cervical spine and facial bones were also performed. Auto Exposure Controls were utilized during the CT exam to meet ALARA standards for radiation dose reduction. INDICATION: Fall with head, face, and neck injury. Patient has swelling and bruising to the right eye. COMPARISON: Comparison is made with prior head CT from 12/03/2021. FINDINGS: CT HEAD: The ventricles and sulci are within normal limits. No sulcal effacement or midline shift is identified. No acute intra-axial or extra-axial hemorrhage is detected. Cisterns are patent. Visualized paranasal sinuses are clear. There does appear to be some soft tissue swelling over the right orbit. IMPRESSION: No acute intracranial process is detected. CT CERVICAL SPINE: There is some straightening of the normal cervical lordotic curvature. There is minimal retrolisthesis of C5 on C6. There is significant multilevel degenerative disc disease with variable disc space narrowing and marginal spurring. No fractures are identified. Prevertebral tissues are normal. Odontoid appears to be intact. There do appear to be pleural effusions bilaterally, greater on the right. IMPRESSION: 1. Cervical spondylosis. No acute bony abnormality detected. 2. Bilateral pleural effusions, right greater. CT FACE: The mandible appears intact. The zygomatic arches are intact. The maxillary sinus arnold are intact. No nasal bone fracture is seen. No definite orbital wall fracture is seen. There does appear to be some mild soft tissue swelling in the right periorbital region. The globes appear to be intact. The visualized paranasal sinuses are clear. Mastoids are well aerated. IMPRESSION: Right periorbital soft tissue swelling. No definite facial bone fracture is detected. Dictated by: Dictated on workstation # [id number]
[2022-06-17] MEDS ORDERED: CLINDAMYCIN 600 MG/50 ML IVPB 50 ML IV ONE (13:30)
[2022-06-17] MEDS ORDERED: LIDOCAINE UROJET 2% GEL 10 ML PKG TOP ONE (13:30)
[2022-06-17] MEDS ORDERED: VANCOMYCIN INJECTION 1,000 MG in NS (IVPB) 250 ML IV ONE (13:45)
[2022-06-17 14:13] LABS: BILIRUBIN,URINE NEGATIVE (NEGATIVE); CLARITY,URINE CLOUDY; COLOR,URINE YELLOW; GLUCOSE, URINE (UA) NEGATIVE (NEGATIVE); KETONES,URINE NEGATIVE (NEGATIVE); LEUKOCYTE ESTERASE ,URINE NEGATIVE (NEGATIVE); NITRITE,URINE NEGATIVE (NEGATIVE); PH,URINE 5.5 (5-9); PROTEIN,URINE 3+ (NEGATIVE)
[2022-06-17 14:18] LABS: BACTERIA,URINE LARGE /HPF; HYALINE CASTS, URINE RARE /LPF; RBC,URINE RARE /HPF; SQUAMOUS EPITHELIAL CELL,UR RARE /HPF
[2022-06-17 16:04] VITALS: BP 123/62
[2022-06-17 16:15] VITALS: BP 134/61
[2022-06-17] MEDS ORDERED: NS IV 1000 ML 1,000 ML IV SCH (16:15)
[2022-06-17] MEDS ORDERED: ONDANSETRON 4 MG (ZOFRAN) ORAL DISSOLVE TAB PO PRN ×2 (16:15→18:15)
[2022-06-17] MEDS ORDERED: ONDANSETRON 4 MG/2 ML (SDV) Z0FRAN IV PRN ×2 (16:15→18:15)
[2022-06-17] MEDS ORDERED: ANTACID SUSP 30 ML UDC (MYLANTA) PO PRN ×2 (16:15→16:45)
[2022-06-17] MEDS ORDERED: MELATONIN 3 MG TABLET PO PRN ×2 (16:15→18:15)
[2022-06-17] MEDS ORDERED: ACETAMINOPHEN 325 MG TABLET PO PRN (16:15)
[2022-06-17] MEDS ORDERED: diphenhydrAMINE 25 MG TAB (BENADRYL) PO PRN ×2 (16:15→18:15)
[2022-06-17] MEDS ORDERED: diphenhydrAMINE 50 MG/ML INJ (BENADRYL) IVP PRN (16:15)
[2022-06-17] MEDS ORDERED: BISACODYL 10 MG SUPP (DULCOLAX) PR PRN ×2 (16:15→18:15)
[2022-06-17] MEDS ORDERED: polyethylene glycoL POWDER 17 GM (MIRALAX) PACK PO PRN ×2 (16:15→16:45)
[2022-06-17 16:30] VITALS: BP 105/76
[2022-06-17] MEDS ORDERED: VANCOMYCIN INJECTION 0.1 MG in NS (IVPB) 250 ML IV SCH (16:45)
--- NOTE | 2022-06-17 16:50 | Consultation-Cardiology ---
HPI-Cardiology Cardiology Consultation: Date of Consultation 06/17/22 Time Seen by a Provider: 16:50 Date of Admission 06-17-22 Attending Physician Patricio Barnard MD Admitting Physician Admitting Physician: Letitia Mccloud DO Attending Physician: Letitia Mccloud DO Consulting Physician Andrés Monsivais MD Primary Coremaker Pipe: Dr. Flores HPI: Chief Complaint: SOB Ms. Tolentino is a 71 yr old female admitted to [facility] from the [facility]. She reports she was sitting on the side of bed when she fell hitting her face on the nightstand. She reports her was able to get her up, but then she fell again. She reports the second time she fell he was not able to get her up and EMS was called. She denies any syncope or near syncope. She denies any c/o CP or palpitations. She has chronic FORTE and is oxygen dependant. She reports she has been compliant with her medications. No c/o n/v/d. No c/o fever or chills. She reports she has had dark, foul smelling urine. She has chronic LUE lymphedema. Review of Systems-Cardiology Review of Systems Constitutional: No chills, No fever, No malaise Eyes: No vision change Ears/Nose/Throat: No epistaxis, No recent hearing loss Respiratory: As described under HPI Cardiovascular: As described under HPI Gastrointestinal: As described under HPI Genitourinary: As described under HPI Musculoskeletal: no symptoms reported Skin: other (ecchymosis to the right side of her face and chin); No rash on exposed areas, No ulcerations on exposed areas Psychiatric/Neurological: No anxiety, No depression, No seizure, No focal weakness, No syncope Hematologic: No bleeding abnormalities KDK-Stftwk-Psmkan Hx Patient Social History 2nd Hand Smoke Exposure: No Have you traveled recently?: No Alcohol Use?: No Pt feels they are or have been: Yes Immunizations Up To Date Date of Influenza Vaccine: Sep 28, 2019 Past Medical History PMH As described under Assessment. Family Medical History Family Medical History: She does not report any family h/o CAD Allergies and Home Medications Allergies Coded Allergies: ceftriaxone (Verified Allergy, Intermediate, N/V/D, 04/18/22) adhesive tape (Unverified Allergy, Unknown, 12/24/19) codeine (Verified Allergy, Unknown, Nausea, 06/17/22) morphine (Verified Allergy, Unknown, Nausea, 06/17/22) penicillin G (Verified Allergy, Unknown, 12/24/19) Patient Home Medication List Acetaminophen (Tylenol Extra Strength) 500 Mg Tablet, 500 MG PO Q8H PRN for PAIN-MILD (1-4), (Reported) Entered as Reported by: BRAXTON STYLES on 04/19/22 1347 Last Action: Continued Albuterol Sulfate (Proair Hfa) 1 Puff Puff, 2 PUFF IH Q4H PRN for SHORTNESS OF BREATH, (Reported) Entered as Reported by: BASHIR SALEH on 09/15/21 1043 Last Action: Continued Aspirin (Aspirin) 81 Mg Tab.chew, 81 MG PO DAILY, (Reported) Entered as Reported by: BASIHR SALEH on 06/18/22 124 Last Action: Continued Atorvastatin Calcium (Atorvastatin Calcium) 10 Mg Tablet, 10 MG PO HS, (Reported) Entered as Reported by: BASHIR SALEH on 06/18/22 124 Last Action: Continued Carvedilol (Carvedilol) 6.25 Mg Tablet, 6.25 MG PO BID, (Reported) Entered as Reported by: BRAXTON STYLES on 04/19/22 1344 Last Action: Reviewed Clopidogrel Bisulfate (Plavix) 75 Mg Tablet, 75 MG PO DAILY, (Reported) Entered as Reported by: BASHIR SALEH on 06/18/22 124 Last Action: Continued Furosemide (Furosemide) 20 Mg Tablet, 20 MG PO DAILY, (Reported) Entered as Reported by: BRAXTON STYLES on 04/19/22 134 Last Action: Continued Gabapentin (Neurontin) 300 Mg Capsule, 300 MG PO DAILY, (Reported) Entered as Reported by: BRAXTON STYLES on 04/19/22 134 Last Action: Continued Gabapentin (Neurontin) 300 Mg Capsule, 600 MG PO HS, (Reported) Entered as Reported by: BRAXTON STYLES on 04/19/22 134 Last Action: Continued Insulin Aspart (Novolog) 100 Unit/Ml Cartridge, 14 UNITS SQ TIDAC, (Reported) Entered as Reported by: BRAXTON STYLES on 04/19/22 1348 Last Action: Converted Insulin Determir (Levemir) 100 Unit/Ml Soln, 20 UNITS SQ HS, (Reported) Entered as Reported by: BASHIR SALEH on 06/18/22 1242 Last Action: Continued Levothyroxine Sodium (Levothyroxine) 125 Mcg Capsule, 125 MCG PO DAILY, (Reported) Entered as Reported by: BRAXTON STYLES on 04/19/221343 Last Action: Converted Losartan Potassium (Losartan Potassium) 100 Mg Tablet, 100 MG PO DAILY, ( Reported) Entered as Reported by: BRAXTON STYLES on 04/19/221346 Last Action: Reviewed Venlafaxine HCl (Venlafaxine HCl) 37.5 Mg Tab, 37.5 MG PO TID, (Reported) Entered as Reported by: BRAXTON STYLES on 04/19/221345 Last Action: Continued Zolpidem Tartrate (Zolpidem Tartrate) 5 Mg Tablet, 2.5-5 MG PO HS PRN for SLEEP, (Reported) Entered as Reported by: BRAXTON STYLES on 04/19/221343 Last Action: Continued Discontinued Medications Amlodipine Besylate (Amlodipine Besylate) 5 Mg Tablet, 5 MG PO DAILY Discontinued Reason: No Longer Taking Prescribed by: LETITIA MCCLOUD on 04/21/221053 Last Action: Discontinued Aspirin (Children's Aspirin) 81 Mg Tab.chew, 81 MG PO DAILY Discontinued Reason: Duplicate Order Prescribed by: LETITIA MCCLOUD on 04/21/221053 Last Action: Discontinued Atorvastatin Calcium (Atorvastatin Calcium) 10 Mg Tablet, 10 MG PO HS Discontinued Reason: Duplicate Order Prescribed by: LETITIA MCCLOUD on 04/21/221053 Last Action: Discontinued Clopidogrel Bisulfate (Clopidogrel) 75 Mg Tablet, 75 MG PO DAILY Discontinued Reason: Duplicate Order Prescribed by: LETITIA MCCLOUD on 04/21/221053 Last Action: Discontinued Insulin Detemir (Levemir Flextouch) 100 Unit/Ml (3 Ml) Insuln.pen, 20 UNIT SQ HS, (Reported) Discontinued Reason: Prescription changed Entered as Reported by: BRAXTON STYLES on 04/19/221348 Levofloxacin (Levofloxacin) 500 Mg Tablet, 500 MG PO DAILY Discontinued Reason: No Longer Taking Prescribed by: LETITIA MCCLOUD on 04/21/221056 Last Action: Discontinued Melatonin (Melatonin) 5 Mg Tablet, 5 MG PO HS PRN for SLEEP, (Reported) Discontinued Reason: No Longer Taking Entered as Reported by: BRAXTON STYLES on 04/19/22 1349 Last Action: Discontinued Potassium Chloride (Klor-Con M20) 20 Meq Tab.er.prt, 20 MEQ PO DAILY@0700 Discontinued Reason: No Longer Taking Prescribed by: LETITIA MCCLOUD on 04/21/22 1054 Last Action: Discontinued Physical Exam-Cardiology Physical Exam Vital Signs/I&O 06/18/22 06/18/22 06/18/22 06/18/22 03:37 04:00 07:00 07:18 Pulse 73 65 Resp 14 B/P (MAP) 121/55 (77) Pulse Ox 96 97 98 O2 Delivery Nasal Cannula High Flow N/C O2 Flow Rate 2.00 5.00 06/18/22 06/18/22 06/18/22 06/18/22 08:06 09:00 10:42 12:00 Temp 37.0 Pulse 68 58 Resp 13 20 B/P (MAP) 118/54 (75) 113/78 (90) Pulse Ox 97 96 98 97 O2 Delivery Nasal Cannula High Flow N/C High Flow N/C Nasal Cannula O2 Flow Rate 3.00 3.00 3.00 3.00 06/18/22 06/18/22 12:55 14:25 Pulse 62 Pulse Ox 96 O2 Delivery High Flow N/C O2 Flow Rate 2.00 06/18/22 00:00 Intake Total 1130 ml Output Total 120 ml Balance 1010 ml Capillary Refill : Less Than 3 Seconds Constitutional: AAO x 3 HEENT: hearing is well preserved, oral hygience is good Neck: No carotid bruit; carotid pulses are 2 + bilaterally Respiratory: No accessory muscle use, No respiratory distress; chest expansion is symmetric, chest is bilaterally symmetric, other (dminished bilat) Cardiovascular: regular rate-rhythm; No JVD; S1 and S2, systolic murmur Gastrointestinal: No tender; soft, round, audible bowel sounds Extremities: other (Swelling of LUE - chronic), no lower extremity edema bilateral Neurologic/Psychiatric: grossly intact (moves all extremities) Skin: other (ecchymosis to right left side of her face and chin; ecchymosis to he right hand and lower arm) Data Review Labs Laboratory Tests 06/17/22 16:45: Blood Gas Puncture Site R RAD, Blood Gas Patient Temperature 37.2, Arterial Blood pH 7.39, Arterial Blood Partial Pressure CO2 38, Arterial Blood Partial Pressure O2 68L, Arterial Blood HCO3 23, Arterial Blood Total CO2 23.8, Arterial Blood Oxygen Saturation 95, Arterial Blood Base Excess -1.5, Martin Test YES-POS, Blood Gas Ventilator Setting NO, Blood Gas Inspired Oxygen 2L 06/17/22 20:30: Glucometer 255H 06/18/22 06:30: White Blood Count 23.6H, Red Blood Count 2.74L, Hemoglobin 7.6L, Hematocrit 25L, Mean Corpuscular Volume 90, Mean Corpuscular Hemoglobin 28, Mean Corpuscular Hemoglobin Concent 31L, Red Cell Distribution Width 14.8H, Platelet Count 230, Mean Platelet Volume 10.7, Immature Granulocyte % (Auto) 1, Neutrophils (%) (Auto) 90H, Lymphocytes (%) (Auto) 4L, Monocytes (%) (Auto) 5, Eosinophils (%) (Auto) 0, Basophils (%) (Auto) 0, Neutrophils # (Auto) 21.1H, Lymphocytes # (Auto) 1.0, Monocytes # (Auto) 1.1H, Eosinophils # (Auto) 0.0, Basophils # (Auto) 0.1, Immature Granulocyte # (Auto) 0.2H, Neutrophils % (Manual) 77, Lymphocytes % (Manual) 8, Monocytes % (Manual) 1, Basophils % (Manual) 1, Band Neutrophils 13, Blood Morphology Comment NORMAL 06/18/22 06:45: Sodium Level 140, Potassium Level 5.2H, Chloride Level 108H, Carbon Dioxide Level 21, Anion Gap 11, Blood Urea Nitrogen 54H, Creatinine 2.60#H, Estimat Glomerular Filtration Rate 19, BUN/Creatinine Ratio 21, Glucose Level 254H, Calcium Level 7.8L, Corrected Calcium 8.9, Total Bilirubin 0.6, Aspartate Amino Transf (AST/SGOT) 21, Alanine Aminotransferase (ALT/SGPT) 19, Alkaline Phosphatase 223H, Total Protein 5.2L, Albumin 2.6L 06/18/22 10:00: Lactic Acid Level 1.84 06/18/22 14:13: Glucometer 227H Radiology NAME: RO TOLENTINO [facility] REC#: [id number] PT STATUS: REG ER : 1950 PHYSICIAN: SAE FAUST DO ADMIT DATE: 06/17/22/ER FS Signed Date of Exam:06/17/22 CHEST 1 VIEW AP/PA ONLY INDICATION: Shortness of breath Portable chest 12:38 PM Heart is mildly enlarged. Pulmonary vascularity is normal. Lungs are clear. IMPRESSION: Cardiomegaly without evidence of pulmonary venous hypertension. Dictated by: Dictated on workstation # [id number] Dict: 06/17/22 1248 Trans: 06/17/22 1550 [facility] [id number] Interpreted by: SARAH ISLAS MD Electronically signed by: SARAH ISLAS MD 06/17/22 1550 NAME: RO TOLENTINO [facility] REC#: [id number] PT STATUS: REG ER : 1950 PHYSICIAN: SAE FAUST DO ADMIT DATE: 06/17/22/ER FS Signed Date of Exam:06/17/22 CT HEAD/FACE/CERVICAL WO PROCEDURE: CT head, face, and cervical spine without contrast. TECHNIQUE: Multiple contiguous axial images were obtained through the head, neck, and facial bones without the use of intravenous contrast. Sagittal and coronal reformations through the cervical spine and facial bones were also performed. Auto Exposure Controls were utilized during the CT exam to meet ALARA standards for radiation dose reduction. INDICATION: Fall with head, face, and neck injury. Patient has swelling and bruising to the right eye. COMPARISON: Comparison is made with prior head CT from 12/03/2021. FINDINGS: CT HEAD: The ventricles and sulci are within normal limits. No sulcal effacement or midline shift is identified. No acute intra-axial or extra-axial hemorrhage is detected. Cisterns are patent. Visualized paranasal sinuses are clear. There does appear to be some soft tissue swelling over the right orbit. IMPRESSION: No acute intracranial process is detected. CT CERVICAL SPINE: There is some straightening of the normal cervical lordotic curvature. There is minimal retrolisthesis of C5 on C6. There is significant multilevel degenerative disc disease with variable disc space narrowing and marginal spurring. No fractures are identified. Prevertebral tissues are normal. Odontoid appears to be intact. There do appear to be pleural effusions bilaterally, greater on the right. IMPRESSION: 1. Cervical spondylosis. No acute bony abnormality detected. 2. Bilateral pleural effusions, right greater. CT FACE: The mandible appears intact. The zygomatic arches are intact. The maxillary sinus arnold are intact. No nasal bone fracture is seen. No definite orbital wall fracture is seen. There does appear to be some mild soft tissue swelling in the right periorbital region. The globes appear to be intact. The visualized paranasal sinuses are clear. Mastoids are well aerated. IMPRESSION: Right periorbital soft tissue swelling. No definite facial bone fracture is detected. Dictated by: Dictated on workstation # [id number] Dict: 06/17/22 1249 Trans: 06/17/22 1538 [id number] Interpreted by: LILIAM MANNING MD Electronically signed by: LILIAM MANNING MD 06/17/22 1538 NAME: RO TOLENTINO [facility] REC#: [id number] PT STATUS: REG ER : 1950 PHYSICIAN: SAE FAUST DO ADMIT DATE: 06/17/22/ER FS Signed Date of Exam:06/17/22 LUMBAR SPINE 2 OR 3 VIEW INDICATION: Fall with low back pain. Time of Exam: 12:39 PM 3 views lumbar spine were obtained. Curvature and alignment is normal. Vertebral body heights are maintained. No acute compression fracture seen. There is generalized degenerative disc disease with variable disc space narrowing and marginal spurring. There is multilevel facet arthropathy. Aorta is partially calcified. IMPRESSION: Lumbar spondylosis. No acute bony abnormality is detected. Dictated by: Dictated on workstation # [id number] Dict: 06/17/22 1248 Trans: 06/17/22 1539 [facility] [id number] Interpreted by: LILIAM MANNING MD Electronically signed by: LILIAM MANNING MD 06/17/22 1539 NAME: RO TOLENTINO [facility] REC#: [id number] PT STATUS: REG ER : 1950 PHYSICIAN: SAE FAUST DO ADMIT DATE: 06/17/22/ER FS Signed Date of Exam:06/17/22 PELVIS (AP) Indication: Pelvic injury from a fall AP view pelvis shows no fracture or dislocation. IMPRESSION: Negative pelvis. Dictated by: Dictated on workstation # [id number] Dict: 06/17/22 1248 Trans: 06/17/22 1549 [facility] [id number] Interpreted by: SARAH ISLAS MD Electronically signed by: SARAH ISLAS MD 06/17/22 1549 A/P-Cardiology Assessment/Admission Diagnosis Cellulitis, LUE - management per medical services Aortic stenosis-moderate, asymptomatic - 2D echo was done on April 19, [address] Flores showing moderate stenosis, ejection fraction 45 to 50%, severe pulmonary hypertension with PA pressure 65 to 70 mmHg Coronary artery disease - Underwent LHC on 04/20/[address] Flores after having abnormal stress test showing Coronary artery disease primarily consisting of 70% mid vessel stenosis of the left anterior descending. This lesion was stented with Promus 3.0 x 18 mm stent with no significant residual stenosis. The rest of the coronary vessels do not exhibit significant obstructive disease. Mild impairment of global left ventricular systolic function with ejection fraction 45% to 50% Hypertension HLP - statin tx DM - management per medical services. Hypothyroidism COPD - oxygen dependent H/O breast cancer with left mastectomy and residual LUE lymphedema Obesity CKD Diabetic neuropathy Chronic peripheral edema Discussion and Recomendations Cellulitis and UTI management per medical services Continue home medications including Plavix and ASA d/t recent stenting Continue statin Monitor lab closely Further recs will be based on her hospital course We would like to thank medical services for this consult MAYCOL MUÑOZ Jun 17, 2022 16:50
[2022-06-17] MEDS: ENOXAPARIN 40 MG/0.4 ML (LOVENOX) SYR SC SCH (16:54)
[2022-06-17] MEDS: NS IV 1000 ML 1,000 ML IV SCH (16:54)
[2022-06-17] MEDS ORDERED: ENOXAPARIN 40 MG/0.4 ML (LOVENOX) SYR SC SCH (17:00)
[2022-06-17] MEDS ORDERED: VANCOMYCIN 1 GM/NS 250 ML IVPB IV NR ×2 (17:00)
[2022-06-17] MEDS ORDERED: VANCOMYCIN 750 MG/NS 250 ML IVPB IV NR ×2 (17:00)
[2022-06-17 17:01] LABS: ABG PCO2 38 MMHG (35-45); ABG PH 7.39 (7.37-7.43); ABG PO2 68 MMHG (79-93)
[2022-06-17 17:02] LABS: ABG BASE EXCESS -1.5 MMOL/L (-2.5-2.5); ABG OXYGEN SATURATION 95 % (94-100); ABG TCO2 23.8 MMOL/L (21.0-31.0); ALLENS TEST YES-POS
[2022-06-17 17:03] LABS: INSPIRED O2 2L; PATIENT TEMP 37.2; VENTILATOR NO
--- NOTE | 2022-06-17 17:58 | Consultation-Cardiology ---
HPI-Cardiology Cardiology Consultation: Date of Consultation 06/17/22 Time Seen by a Provider: 17:30 Date of Admission Attending Physician Patricio Barnard MD Admitting Physician Admitting Physician: Letitia Mccloud DO Attending Physician: Letitia Mccloud DO Consulting Physician TRACEY DOSS MD,MA, FACP, FACC, [facility] [place], CCDS HPI: Chief Complaint: SOB Ms. Lopez is a 71 yr old female admitted to [facility] from the [place]. She reports she was sitting on the side of bed when she fell hitting her face on the nightstand. She reports her was able to get her up, but then she fell again. She reports the second time she fell he was not able to get her up and EMS was called. She denies any syncope or near syncope. She denies any c/o CP or palpitations. She has chronic FORTE and is oxygen dependant. She reports she has been compliant with her medications. No c/o n/v/d. No c/o fever or chills. She reports she has had dark, foul smelling urine. She has chronic LUE lymphedema. Review of Systems-Cardiology Review of Systems Constitutional: No chills, No fever, No malaise Eyes: No vision change Ears/Nose/Throat: No epistaxis, No recent hearing loss Respiratory: As described under HPI Cardiovascular: As described under HPI Gastrointestinal: As described under HPI Genitourinary: As described under HPI Musculoskeletal: no symptoms reported Skin: other (ecchymosis to the right side of her face and chin); No rash on exposed areas, No ulcerations on exposed areas Psychiatric/Neurological: No anxiety, No depression, No seizure, No focal weakness, No syncope Hematologic: No bleeding abnormalities HIM-Nbsheh-Gidcot Hx Patient Social History 2nd Hand Smoke Exposure: No Have you traveled recently?: No Alcohol Use?: No Pt feels they are or have been: Yes Immunizations Up To Date Date of Influenza Vaccine: Sep 28, 2019 Past Medical History PMH As described under Assessment. Family Medical History Family Medical History: She does not report any family h/o CAD Allergies and Home Medications Allergies Coded Allergies: ceftriaxone (Verified Allergy, Intermediate, N/V/D, 04/18/22) adhesive tape (Unverified Allergy, Unknown, 12/24/19) codeine (Verified Allergy, Unknown, Nausea, 06/17/22) morphine (Verified Allergy, Unknown, Nausea, 06/17/22) penicillin G (Verified Allergy, Unknown, 12/24/19) Patient Home Medication List Home Medication List Reviewed: Yes Acetaminophen (Tylenol Extra Strength) 500 Mg Tablet, 500 MG PO Q8H PRN for PAIN-MILD (1-4), (Reported) Entered as Reported by: BRAXTON STYLES on 04/19/22 1347 Albuterol Sulfate (Proair Hfa) 1 Puff Puff, 2 PUFF IH Q4H PRN for SHORTNESS OF BREATH, (Reported) Entered as Reported by: BASHIR SALEH on 09/15/21 1043 Amlodipine Besylate (Amlodipine Besylate) 5 Mg Tablet, 5 MG PO DAILY Prescribed by: LETITIA MCCLOUD on 04/21/22 1054 Aspirin (Children's Aspirin) 81 Mg Tab.chew, 81 MG PO DAILY Prescribed by: LETITIA MCCLOUD on 04/21/22 105 Last Action: Continued Atorvastatin Calcium (Atorvastatin Calcium) 10 Mg Tablet, 10 MG PO HS Prescribed by: LETITIA MCCLOUD on 04/21/22 1054 Last Action: Continued Carvedilol (Carvedilol) 6.25 Mg Tablet, 6.25 MG PO BID, (Reported) Entered as Reported by: BRAXTON STYLES on 04/19/22 1344 Last Action: Continued Clopidogrel Bisulfate (Clopidogrel) 75 Mg Tablet, 75 MG PO DAILY Prescribed by: LETITIA MCCLOUD on 04/21/22 1054 Last Action: Continued Furosemide (Furosemide) 20 Mg Tablet, 20 MG PO DAILY, (Reported) Entered as Reported by: BRAXTON STYLES on 04/19/22 1345 Gabapentin (Neurontin) 300 Mg Capsule, 300 MG PO BID, (Reported) Entered as Reported by: BRAXTON STYLES on 04/19/22 1345 Gabapentin (Neurontin) 300 Mg Capsule, 600 MG PO 1200, (Reported) Entered as Reported by: BRAXTON STYLES on 04/19/22 1346 Insulin Aspart (Novolog) 100 Unit/Ml Cartridge, 14 UNITS SQ TIDWM, (Reported) Entered as Reported by: BRAXTON STYLES on 04/19/22 1348 Insulin Detemir (Levemir Flextouch) 100 Unit/Ml (3 Ml) Insuln.pen, 20 UNIT SQ HS, (Reported) Entered as Reported by: BRAXTON STYLES on 04/19/22 1349 Levofloxacin (Levofloxacin) 500 Mg Tablet, 500 MG PO DAILY Prescribed by: LETITIA MCCLOUD on 04/21/22 1057 Levothyroxine Sodium (Levothyroxine) 125 Mcg Capsule, 125 MCG PO DAILY, (Reported) Entered as Reported by: BRAXTON STYLES on 04/19/22 1344 Losartan Potassium (Losartan Potassium) 100 Mg Tablet, 100 MG PO DAILY, (Re ported) Entered as Reported by: BRAXTON STYLES on 04/19/22 1347 Last Action: Continued Melatonin (Melatonin) 5 Mg Tablet, 5 MG PO HS PRN for SLEEP, (Reported) Entered as Reported by: BRAXTON STYLES on 04/19/22 1349 Potassium Chloride (Klor-Con M20) 20 Meq Tab.er.prt, 20 MEQ PO DAILY@0700 Prescribed by: LETITIA MCCLOUD on 04/21/22 1054 Venlafaxine HCl (Venlafaxine HCl) 37.5 Mg Tab, 37.5 MG PO TID, (Reported) Entered as Reported by: BRAXTON STYLES on 04/19/22 1346 Zolpidem Tartrate (Zolpidem Tartrate) 5 Mg Tablet, 5 MG PO HS, (Reported) Entered as Reported by: BRAXTON STYLES on 04/19/22 134 Physical Exam-Cardiology Physical Exam Vital Signs/I&O 06/17/22 06/17/22 06/17/22 06/17/22 12:00 12:00 12:00 12:00 Temp 36.7 36.7 36.7 Pulse 82 82 82 Resp 20 20 20 B/P (MAP) 136/55 136/55 (82) 136/55 (82) Pulse Ox 90 90 90 O2 Delivery Nasal Cannula Nasal Cannula Nasal Cannula Nasal Cannula O2 Flow Rate 3.50 06/17/22 06/17/22 06/17/22 06/17/22 16:00 16:04 16:10 16:15 Temp 37.2 Pulse 71 Resp 18 B/P (MAP) 123/62 (82) 134/61 (85) Pulse Ox 97 100 O2 Delivery Nasal Cannula Nasal Cannula Nasal Cannula Nasal Cannula O2 Flow Rate 2.00 4.00 2.00 2.00 06/17/22 06/17/22 16:24 16:30 Pulse 71 72 Resp 22 B/P (MAP) 105/76 (86) Pulse Ox 97 O2 Delivery Nasal Cannula O2 Flow Rate 2.00 Capillary Refill : Less Than 3 Seconds Constitutional: AAO x 3 HEENT: PERRL, other (bruising over and around the R orbit), hearing is well preserved, oral hygience is good Neck: No carotid bruit; carotid pulses are 2 + bilaterally Respiratory: No accessory muscle use, No respiratory distress; chest expansion is symmetric, chest is bilaterally symmetric, other (dminished bilat) Cardiovascular: regular rate-rhythm; No JVD; S1 and S2, systolic murmur Gastrointestinal: No tender; soft, round, audible bowel sounds Extremities: other (Swelling of LUE - chronic), no lower extremity edema bilateral Neurologic/Psychiatric: other (moves all limbs equally) Skin: other (ecchymosis to right left side of her face and chin; ecchymosis to he right hand and lower arm) Data Review Labs Laboratory Tests 06/17/22 12:05: White Blood Count 15.7H, Red Blood Count 3.11L, Hemoglobin 8.6L, Hematocrit 27L, Mean Corpuscular Volume 88, Mean Corpuscular Hemoglobin 28, Mean Corpuscular Hemoglobin Concent 31L, Red Cell Distribution Width 14.6H, Platelet Count 281, Mean Platelet Volume 10.5, Immature Granulocyte % (Auto) 1, Neutrophils (%) (Au to) 93H, Lymphocytes (%) (Auto) 2L, Monocytes (%) (Auto) 4, Eosinophils (%) (Auto) 0, Basophils (%) (Auto) 0, Neutrophils # (Auto) 14.7H, Lymphocytes # (Auto) 0.3L, Monocytes # (Auto) 0.6, Eosinophils # (Auto) 0.0, Basophils # (Auto) 0.0, Immature Granulocyte # (Auto) 0.1, Neutrophils % (Manual) 81, Lymphocytes % (Manual) 1, Monocytes % (Manual) 2, Eosinophils % (Manual) 0, Basophils % (Manual) 0, Band Neutrophils 16, Sodium Level 140, Potassium Level 4.7, Chloride Level 105, Carbon Dioxide Level 23, Anion Gap 12, Blood Urea Nitrogen 46H, Creatinine 1.88H, Estimat Glomerular Filtration Rate 29, BUN/Creatinine Ratio 24, Glucose Level 186H, Calcium Level 8.7, Corrected Calcium 9.4, Total Bilirubin 0.7, Aspartate Amino Transf (AST/SGOT) 24, Alanine Aminotransferase (ALT/SGPT) 20, Alkaline Phosphatase 372H, Total Protein 6.0L, Albumin 3.1L 06/17/22 14:00: Urine Color YELLOW, Urine Clarity CLOUDY, Urine pH 5.5, Urine Specific [place] 1.025H, Urine Protein 3+H, Urine Glucose (UA) NEGATIVE, Urine Ketones NEGATIVE, Urine Nitrite NEGATIVE, Urine Bilirubin NEGATIVE, Urine Urobilinogen 0.2, Urine Leukocyte Esterase NEGATIVE, Urine RBC (Auto) 2+H, Urine RBC RARE, Urine WBC 5- 10H, Urine Squamous Epithelial Cells RARE, Urine Crystals NONE, Urine Bacteria LARGEH, Urine Casts PRESENT, Urine Hyaline Casts RARE, Urine Mucus NEGATIVE, Urine Culture Indicated YES 06/17/22 16:45: Blood Gas Puncture Site R RAD, Blood Gas Patient Temperature 37.2, Arterial Blood pH 7.39, Arterial Blood Partial Pressure CO2 38, Arterial Blood Partial Pressure O2 68L, Arterial Blood HCO3 23, Arterial Blood Total CO2 23.8, Arterial Blood Oxygen Saturation 95, Arterial Blood Base Excess -1.5, Martin Test YES-POS, Blood Gas Ventilator Setting NO, Blood Gas Inspired Oxygen 2L A/P-Cardiology Assessment/Admission Diagnosis Cellulitis, LUE - management per medical services Bruising over and around R orbit Aortic stenosis-moderate, asymptomatic - 2D echo was done on April 19, [address] Flores showing moderate stenosis, ejection fraction 45 to 50%, severe pulmonary hypertension with PA pressure 65 to 70 mmHg Coronary artery disease - Underwent LHC on 04/20/[address] Flores after having abnormal stress test showing Coronary artery disease primarily consisting of 70% mid vessel stenosis of the left anterior descending. This lesion was stented with Promus 3.0 x 18 mm stent with no significant residual stenosis. The rest of the coronary vessels do not exhibit significant obstructive disease. Mild impairment of global left ventricular systolic function with ejection frac tion 45% to 50% Hypertension HLP - statin tx DM - management per medical services. Hypothyroidism COPD - oxygen dependent H/O breast cancer with left mastectomy and residual LUE lymphedema Obesity CKD Diabetic neuropathy Chronic peripheral edema Discussion and Recomendations Cellulitis and UTI management per medical services Continue home medications including Plavix and ASA d/t recent stenting Continue statin Monitor lab closely Further recs will be based on her hospital course We would like to thank medical services for this consult TRACEY DOSS MD FACP FAC CCDS Jun 17, 2022 17:58
[2022-06-17] MEDS ORDERED: RT-ALBUTEROL/IPRATROPIUM 3 ML (DUONEB) VIAL INH SCH (18:00)
[2022-06-17] MEDS ORDERED: diphenhydrAMINE 50 MG/ML INJ (BENADRYL) IV PRN (18:15)
[2022-06-17] MEDS: RT-ALBUTEROL/IPRATROPIUM 3 ML (DUONEB) VIAL IH SCH ×2 (18:41→22:19)
[2022-06-17 19:52] VITALS: BP 148/66
[2022-06-17] MEDS: HYDROmorphone 2 MG/ML VIAL (DILAUDID) IV PRN ×2 (20:10→22:44)
[2022-06-17] MEDS ORDERED: inSUlin ASPART (NovoLOG) 1 UNIT/0.01 ML (CHARGE PER UNIT) SC SCH (21:00)
[2022-06-17] MEDS ORDERED: DOCUSATE SODIUM 100 MG (COLACE) CAP PO SCH (21:00)
[2022-06-17] MEDS ORDERED: AtorvaSTATin TABLET 10 MG TABLET PO SCH (21:00)
[2022-06-17] MEDS: DOCUSATE SODIUM 100 MG (COLACE) CAP PO SCH (22:15)
[2022-06-17] MEDS: inSUlin ASPART (NovoLOG) 1 UNIT/0.01 ML (CHARGE PER UNIT) SC SCH (22:44)
[2022-06-18] VITALS: BP 112/46
[2022-06-18] MEDS: ACETAMINOPHEN 325 MG TABLET PO PRN (01:33)
[2022-06-18] MEDS: RT-ALBUTEROL/IPRATROPIUM 3 ML (DUONEB) VIAL IH SCH ×6 (02:35→22:53)
[2022-06-18 04:00] VITALS: BP 121/55
[2022-06-18] MEDS: ENOXAPARIN 40 MG/0.4 ML (LOVENOX) SYR SC SCH (06:21)
[2022-06-18 06:56] LABS: BASOPHILS # (AUTO) 0.1 10^3/uL (0.0-0.1); BASOPHILS % (AUTO) 0 % (0-10); EOSINOPHILS % (AUTO) 0 % (0-10); HEMATOCRIT 25 % (35-52); HEMOGLOBIN 7.6 g/dL (11.5-16.0); LYMPHOCYTES % (AUTO) 4 % (12-44); MEAN CORPUSCULAR HEMOGLOBIN 28 pg (25-34); MEAN CORPUSCULAR HGB CONC 31 g/dL (32-36); MEAN CORPUSCULAR VOLUME 90 fL (80-99); MEAN PLATELET VOLUME 10.7 fL (9.0-12.2); MONOCYTES # (AUTO) 1.1 10^3/uL (0.0-1.0); MONOCYTES % (AUTO) 5 % (0-12); NEUTROPHILS # (AUTO) 21.1 10^3/uL (1.8-7.8); NEUTROPHILS % (AUTO) 90 % (42-75); PLATELET COUNT 230 10^3/uL (130-400); WHITE BLOOD COUNT 23.6 10^3/uL (4.3-11.0)
[2022-06-18 07:12] LABS: ALBUMIN 2.6 GM/DL (3.2-4.5)
[2022-06-18 07:13] LABS: POTASSIUM 5.2 MMOL/L (3.6-5.0)
[2022-06-18 07:14] LABS: CALCIUM 7.8 MG/DL (8.5-10.1)
[2022-06-18 07:15] LABS: TOTAL PROTEIN 5.2 GM/DL (6.4-8.2)
[2022-06-18 07:17] LABS: BILIRUBIN,TOTAL 0.6 MG/DL (0.1-1.0)
[2022-06-18 07:19] LABS: CREATININE SERUM 2.6 MG/DL (0.60-1.30)
[2022-06-18 08:03] LABS: BAND NEUTROPHILS 13 %; BASOPHILS % (MANUAL) 1 %; LYMPHOCYTES % (MANUAL) 8 %; MONOCYTES % (MANUAL) 1 %; NEUTROPHILS % (MANUAL) 77 %; RBC MORPH NORMAL
[2022-06-18 08:06] VITALS: BP 118/54
[2022-06-18] MEDS ORDERED: ASPIRIN 81 MG CHEW (CHILDREN'S ASA) PO SCH (09:00)
[2022-06-18] MEDS ORDERED: CLOPIDOGREL 75 MG (PLAVIX) TABLET PO SCH (09:00)
[2022-06-18] MEDS ORDERED: LOSARTAN 100 MG (COZAAR) TABLET PO SCH (09:00)
[2022-06-18] MEDS: inSUlin ASPART (NovoLOG) 1 UNIT/0.01 ML (CHARGE PER UNIT) SC SCH ×4 (09:23→21:00)
[2022-06-18] MEDS: DOCUSATE SODIUM 100 MG (COLACE) CAP PO SCH ×2 (09:24→20:32)
--- NOTE | 2022-06-18 09:55 | Progress Note - Cardiology ---
Cardiology SOAP Progress Note Subjective: Lying in bed Denies any c/o CP or SOB Reports gen discomfort and weakness Objective: I&O/Vital Signs 06/18/22 06/18/22 06/18/22 06/18/22 03:37 04:00 07:00 07:18 Pulse 73 65 Resp 14 B/P (MAP) 121/55 (77) Pulse Ox 96 97 98 O2 Delivery Nasal Cannula High Flow N/C O2 Flow Rate 2.00 5.00 06/18/22 06/18/22 06/18/22 06/18/22 08:06 09:00 10:42 12:00 Temp 37.0 Pulse 68 58 Resp 13 20 B/P (MAP) 118/54 (75) 113/78 (90) Pulse Ox 97 96 98 97 O2 Delivery Nasal Cannula High Flow N/C High Flow N/C Nasal Cannula O2 Flow Rate 3.00 3.00 3.00 3.00 06/18/22 06/18/22 12:55 14:25 Pulse 62 Pulse Ox 96 O2 Delivery High Flow N/C O2 Flow Rate 2.00 06/18/22 00:00 Intake Total 1130 ml Output Total 120 ml Balance 1010 ml Constitutional: AAO x 3 Respiratory: No accessory muscle use, No respiratory distress; chest expansion is symmetric, chest is bilaterally symmetric, other (dminished bilat) Cardiovascular: regular rate-rhythm; No JVD; S1 and S2, systolic murmur Gastrointestional: No tender; soft, round, audible bowel sounds Extremities: other (Swelling of LUE - chronic), no lower extremity edema bilateral Neurologic/Psychiatric: other (moves all limbs equally) Skin: other (ecchymosis to right left side of her face and chin; ecchymosis to he right hand and lower arm) Results/Procedures: Labs Laboratory Tests 06/17/22 16:45: Blood Gas Puncture Site R RAD, Blood Gas Patient Temperature 37.2, Arterial Blood pH 7.39, Arterial Blood Partial Pressure CO2 38, Arterial Blood Partial Pressure O2 68L, Arterial Blood HCO3 23, Arterial Blood Total CO2 23.8, Arterial Blood Oxygen Saturation 95, Arterial Blood Base Excess -1.5, Martin Test YES-POS, Blood Gas Ventilator Setting NO, Blood Gas Inspired Oxygen 2L 06/17/22 20:30: Glucometer 255H 06/18/22 06:30: White Blood Count 23.6H, Red Blood Count 2.74L, Hemoglobin 7.6L, Hematocrit 25L, Mean Corpuscular Volume 90, Mean Corpuscular Hemoglobin 28, Mean Corpuscular Hemoglobin Concent 31L, Red Cell Distribution Width 14.8H, Platelet Count 230, Mean Platelet Volume 10.7, Immature Granulocyte % (Auto) 1, Neutrophils (%) (Auto) 90H, Lymphocytes (%) (Auto) 4L, Monocytes (%) (Auto) 5, Eosinophils (%) (Auto) 0, Basophils (%) (Auto) 0, Neutrophils # (Auto) 21.1H, Lymphocytes # (Auto) 1.0, Monocytes # (Auto) 1.1H, Eosinophils # (Auto) 0.0, Basophils # (Auto) 0.1, Immature Granulocyte # (Auto) 0.2H, Neutrophils % (Manual) 77, Lymphocytes % (Manual) 8, Monocytes % (Manual) 1, Basophils % (Manual) 1, Band Neutrophils 13, Blood Morphology Comment NORMAL 06/18/22 06:45: Sodium Level 140, Potassium Level 5.2H, Chloride Level 108H, Carbon Dioxide Level 21, Anion Gap 11, Blood Urea Nitrogen 54H, Creatinine 2.60#H, Estimat Glomerular Filtration Rate 19, BUN/Creatinine Ratio 21, Glucose Level 254H, Calcium Level 7.8L, Corrected Calcium 8.9, Total Bilirubin 0.6, Aspartate Amino Transf (AST/SGOT) 21, Alanine Aminotransferase (ALT/SGPT) 19, Alkaline Phosphatase 223H, Total Protein 5.2L, Albumin 2.6L 06/18/22 10:00: Lactic Acid Level 1.84 06/18/22 14:13: Glucometer 227H A/P: Assessment: Cellulitis, LUE - management per medical services Bruising over and around R orbit Aortic stenosis-moderate, asymptomatic - 2D echo was done on April 19, [address] Flores showing moderate stenosis, ejection fraction 45 to 50%, severe pulmonary hypertension with PA pressure 65 to 70 mmHg Coronary artery disease - Underwent LHC on 04/20/[address] Flores after having abnormal stress test showing Coronary artery disease primarily consisting of 70% mid vessel stenosis of the left anterior descending. This lesion was stented with Promus 3.0 x 18 mm stent with no significant residual stenosis. The rest of the coronary vessels do not exhibit significant obstructive disease. Mild impairment of global left ventricular systolic function with ejection fraction 45% to 50% Hypertension HLP - statin tx DM - management per medical services. Hypothyroidism COPD - oxygen dependent H/O breast cancer with left mastectomy and residual LUE lymphedema Obesity CKD Diabetic neuropathy Chronic peripheral edema Plan: Cellulitis and UTI management per medical services - ? sepsis - management per medical services Worsening renal function - start IVF - continue to hold diuretics - stop ARB Continue home medications including Plavix and ASA d/t recent stenting Continue statin Monitor lab closely MAYCOL MUÑOZ Jun 18, 2022 09:55
--- NOTE | 2022-06-18 10:53 | Progress Note - Cardiology ---
Cardiology SOAP Progress Note Subjective: Gen weakness and malaise No focal weakness No cp or palp or syncope No n/v/d Objective: I&O/Vital Signs 06/18/22 06/18/22 06/18/22 06/18/22 00:00 01:00 01:33 02:03 Temp 37.8 37.1 Pulse 73 71 Resp 15 B/P (MAP) 112/46 (68) Pulse Ox 92 O2 Delivery Nasal Cannula O2 Flow Rate 2.00 06/18/22 06/18/22 06/18/22 06/18/22 02:34 03:37 04:00 07:00 Pulse 73 65 Resp 14 B/P (MAP) 121/55 (77) Pulse Ox 96 96 97 O2 Delivery High Flow N/C Nasal Cannula O2 Flow Rate 5.00 2.00 06/18/22 06/18/22 06/18/22 06/18/22 07:18 08:06 09:00 10:42 Temp 37.0 Pulse 68 Resp 13 B/P (MAP) 118/54 (75) Pulse Ox 98 97 96 98 O2 Delivery High Flow N/C Nasal Cannula High Flow N/C High Flow N/C O2 Flow Rate 5.00 3.00 3.00 3.00 06/18/22 00:00 Intake Total 1130 ml Output Total 120 ml Balance 1010 ml Constitutional: AAO x 3 Respiratory: No accessory muscle use, No respiratory distress; chest expansion is symmetric, chest is bilaterally symmetric, other (dminished bilat) Cardiovascular: regular rate-rhythm; No JVD; S1 and S2, systolic murmur Gastrointestional: No tender; soft, round, audible bowel sounds Extremities: other (Swelling of LUE - chronic), no lower extremity edema bilateral Neurologic/Psychiatric: other (moves all limbs equally) Skin: other (ecchymosis to right left side of her face and chin; ecchymosis to he right hand and lower arm) Results/Procedures: Labs Laboratory Tests 06/17/22 12:05: White Blood Count 15.7H, Red Blood Count 3.11L, Hemoglobin 8.6L, Hematocrit 27L, Mean Corpuscular Volume 88, Mean Corpuscular Hemoglobin 28, Mean Corpuscular Hemoglobin Concent 31L, Red Cell Distribution Width 14.6H, Platelet Count 281, Mean Platelet Volume 10.5, Immature Granulocyte % (Auto) 1, Neutrophils (%) (Auto) 93H, Lymphocytes (%) (Auto) 2L, Monocytes (%) (Auto) 4, Eosinophils (%) (Auto) 0, Basophils (%) (Auto) 0, Neutrophils # (Auto) 14.7H, Lymphocytes # (Auto) 0.3L, Monocytes # (Auto) 0.6, Eosinophils # (Auto) 0.0, Basophils # (Auto) 0.0, Immature Granulocyte # (Auto) 0.1, Neutrophils % (Manual) 81, Lymphocytes % (Manual) 1, Monocytes % (Manual) 2, Eosinophils % (Manual) 0, Basophils % (Manual) 0, Band Neutrophils 16, Sodium Level 140, Potassium Level 4.7, Chloride Level 105, Carbon Dioxide Level 23, Anion Gap 12, Blood Urea Nitrogen 46H, Creatinine 1.88H, Estimat Glomerular Filtration Rate 29, BUN/Creatinine Ratio 24, Glucose Level 186H, Calcium Level 8.7, Corrected Calcium 9.4, Total Bilirubin 0.7, Aspartate Amino Transf (AST/SGOT) 24, Alanine Aminotransferase (ALT/SGPT) 20, Alkaline Phosphatase 372H, Total Protein 6.0L, Albumin 3.1L 06/17/22 14:00: Urine Color YELLOW, Urine Clarity CLOUDY, Urine pH 5.5, Urine Specific [place] 1.025H, Urine Protein 3+H, Urine Glucose (UA) NEGATIVE, Urine Ketones NEGATIVE, Urine Nitrite NEGATIVE, Urine Bilirubin NEGATIVE, Urine Urobilinogen 0.2, Urine Leukocyte Esterase NEGATIVE, Urine RBC (Auto) 2+H, Urine RBC RARE, Urine WBC 5- 10H, Urine Squamous Epithelial Cells RARE, Urine Crystals NONE, Urine Bacteria LARGEH, Urine Casts PRESENT, Urine Hyaline Casts RARE, Urine Mucus NEGATIVE, Urine Culture Indicated YES 06/17/22 16:45: Blood Gas Puncture Site R RAD, Blood Gas Patient Temperature 37.2, Arterial Blood pH 7.39, Arterial Blood Partial Pressure CO2 38, Arterial Blood Partial Pressure O2 68L, Arterial Blood HCO3 23, Arterial Blood Total CO2 23.8, Arterial Blood Oxygen Saturation 95, Arterial Blood Base Excess -1.5, Martin Test YES-POS, Blood Gas Ventilator Setting NO, Blood Gas Inspired Oxygen 2L 06/17/22 20:30: Glucometer 255H 06/18/22 06:30: White Blood Count 23.6H, Red Blood Count 2.74L, Hemoglobin 7.6L, Hematocrit 25L, Mean Corpuscular Volume 90, Mean Corpuscular Hemoglobin 28, Mean Corpuscular Hemoglobin Concent 31L, Red Cell Distribution Width 14.8H, Platelet Count 230, Mean Platelet Volume 10.7, Immature Granulocyte % (Auto) 1, Neutrophils (%) (Auto) 90H, Lymphocytes (%) (Auto) 4L, Monocytes (%) (Auto) 5, Eosinophils (%) (Auto) 0, Basophils (%) (Auto) 0, Neutrophils # (Auto) 21.1H, Lymphocytes # (Auto) 1.0, Monocytes # (Auto) 1.1H, Eosinophils # (Auto) 0.0, Basophils # (Auto) 0.1, Immature Granulocyte # (Auto) 0.2H, Neutrophils % (Manual) 77, Lymphocytes % (Manual) 8, Monocytes % (Manual) 1, Basophils % (Manual) 1, Band Neutrophils 13, Blood Morphology Comment NORMAL 06/18/22 06:45: Sodium Level 140, Potassium Level 5.2H, Chloride Level 108H, Carbon Dioxide Leve l 21, Anion Gap 11, Blood Urea Nitrogen 54H, Creatinine 2.60#H, Estimat Glomerular Filtration Rate 19, BUN/Creatinine Ratio 21, Glucose Level 254H, Calcium Level 7.8L, Corrected Calcium 8.9, Total Bilirubin 0.6, Aspartate Amino Transf (AST/SGOT) 21, Alanine Aminotransferase (ALT/SGPT) 19, Alkaline Phosph atase 223H, Total Protein 5.2L, Albumin 2.6L 06/18/22 10:00: Lactic Acid Level 1.84 Laboratory Tests 06/17/22 12:05 06/18/22 06:30 06/18/22 06:45 A/P: Assessment: SHEREE Cellulitis, LUE - management per medical services Bruising over and around R orbit Aortic stenosis-moderate, asymptomatic - 2D echo was done on April 19, [address] Flores showing moderate stenosis, ejection fraction 45 to 50%, severe pulmonary hypertension with PA pressure 65 t o 70 mmHg Coronary artery disease - Underwent LHC on 04/20/[address] Flores after having abnormal stress test showing Coronary artery disease primarily consisting of 70% mid vessel stenosis of the left anterior descending. This lesion was stented with Promus 3.0 x 18 mm stent with no significant residual stenosis. The rest of the coronary vessels do not exhibit significant obstructive disease. Mild impairment of global left ventricular systolic function with ejection fraction 45% to 50% Hypertension HLP - statin tx DM - management per medical services. Hypothyroidism COPD - oxygen dependent H/O breast cancer with left mastectomy and residual LUE lymphedema Obesity CKD Diabetic neuropathy Chronic peripheral edema Plan: Worsening renal function - start IVF - continue to hold diuretics - stop ARB Continue home medications including Plavix and ASA d/t recent stenting Continue statin Cellulitis and UTI management per medical services - ? sepsis - management per Medical services Monitor lab closely TRACEY DOSS MD FACP FAC CCDS Jun 18, 2022 10:53
[2022-06-18] MEDS: NS IV 1000 ML 1,000 ML IV SCH ×2 (11:23→20:32)
[2022-06-18 12:00] VITALS: BP 113/78
[2022-06-18] MEDS ORDERED: CLOP75TA69 PO (12:42)
[2022-06-18] MEDS ORDERED: INSU100V5 SQ (12:42)
[2022-06-18] MEDS ORDERED: ASPI-999 PO (12:42)
[2022-06-18] MEDS ORDERED: ATOR10TA66 PO (12:42)
[2022-06-18] MEDS ORDERED: ACETAMINOPHEN 500 MG TAB (TYLENOL) PO PRN (13:00)
--- NOTE | 2022-06-18 13:06 | History & Physical-Hospitalist ---
PATRICAJAMEEROXIE 06/18/22 1306: History of Present Illness HPI/Chief Complaint Dannielle Lopez is a 71y/o F w/ a PMH of LUE lymphedema, diabetes, and CKD who presented to the ER yesterday due to generalized weakness and a fall. Pt reports that she had felt weak for about the last month. Then yesterday she had 2 falls. The second fall happened when she was trying to get out of bed and she then hit the right side of her face on a nightstand. She then was taken into the ER. While in the ED she disclosed that she had had increased swelling and erythema in her left arm for the last 5-6 days. Also complained of dysuria and that her urine had been darker in color w/ an abnormal smell. Had not had any episodes of hematuria. Pt was admitted to the cardiac step down unit. Today she says that she has felt SOB. On 3L of O2 when her baseline is 2L. Left arm hurts. Rates the pain as a 2/10. Also endorses some right face pain and left knee pain which she believes is from the fall. Source: patient Exam Limitations: no limitations Date Seen 06/18/22 Time Seen by a Provider: 10:11 Attending Physician Self,Patricio CAMPOS PCP Admitting Physician: Letitia Mccloud DO Attending Physician: Letitia Mccloud DO Referring Physician Date of Admission Jun 17, 2022 at 16:14 Home Medications & Allergies Home Medications Reviewed patient Home Medication Reconciliation performed by pharmacy medication reconciliations biomedical equipment technician and/or nursing. Patients Allergies have been reviewed. Allergies Allergies Coded Allergies ceftriaxone (Verified Allergy, Intermediate, N/V/D, 04/18/22) adhesive tape (Unverified Allergy, Unknown, 12/24/19) codeine (Verified Allergy, Unknown, Nausea, 06/17/22) morphine (Verified Allergy, Unknown, Nausea, 06/17/22) penicillin G (Verified Allergy, Unknown, 12/24/19) Past Rxbtvbx-Oyutzw-Rgexaj Hx Patient Social History Marrital Status: Employed/Student: retired Tobacco Use?: No Smoking Status: Never a Smoker Use of E-Cig and/or Vaping dev: No Substance use?: No Alcohol Use?: No Pt feels they are or have been: Yes Immunizations Up To Date Date of Influenza Vaccine: Sep 28, 2019 First/Initial COVID19 Vaccinat: Moderna Second COVID19 Vaccination Alok: Modernmarleny Seasonal Allergies Seasonal Allergies: No Current Status status: No status: No Advance Directives: No Communicates: Verbally Primary Language: Venezuelan Preferred Spoken Language: Venezuelan Is interpretation needed?: No Sensory deficits: Vision impairment Past Medical History Surgeries: Gallbladder, Hysterectomy, Orthopedic, Thyroidectomy 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 History: Hysterectomy Arthritis Diabetes, Insulin dep Breast Did You Recieve Any Treatments: Yes What Type of Treatment Did You: Surgical Intervention Blood Disorders: No PMHx: Left breast cancer treated with chemo in the Diabetes HTN HLD SurgHx: Left breast removal/reconstruction Right breast reduction Cholecystectomy Family Medical History Cancer Review of Systems Constitutional: No chills, No fever EENTM: No blurred vision, No double vision Respiratory: No cough; short of breath Cardiovascular: No chest pain; edema (left arm); No palpitations Gastrointestinal: No abdominal pain, No constipation, No diarrhea, No nausea, No vomiting Genitourinary: dysuria; No hematuria Musculoskeletal: No back pain; joint pain (right knee) Psychiatric/Neurological: Denies Headache, Denies Numbness, Denies Paresthesia Physical Exam Physical Exam Vital Signs Vital Signs - First Documented Capillary Refill : Less Than 3 Seconds Height, Weight, BMI Height: '" Weight: lbs. oz. kg; 46.64 BMI Method: General Appearance: No Apparent Distress, Obese HEENT: PERRL/EOMI; No Photophobia Neck: Non Tender, Supple Respiratory: Lungs Clear, Normal Breath Sounds, No Accessory Muscle Use, No Respiratory Distress Cardiovascular: Regular Rate, Rhythm, No Murmur, Normal Peripheral Pulses Gastrointestinal: Non Tender, Soft Extremity: Calf Tenderness (b/l), Swelling (left arm) Neurologic/Psychiatric: Oriented x3, Normal Mood/Affect Skin: Ecchymosis (right face), Erythema (left arm) Results Results/Procedures Labs Laboratory Tests 06/17/22 12:05 06/18/22 06:30 06/18/22 06:45 Patient resulted labs reviewed. Assessment/Plan Admission Diagnosis LUE lymphedema Cellulitis UTI Acute on chronic kidney disease hyperkalemia diabetes mellitus HTN HLD COPD Hypothyroidism Assessment and Plan LUE lymphedema Cellulitis -started on vancomycin and levofloxacin -vancomycin d/c due to SHEREE -starting linezolid -pain control UTI -UA showed WBCs and large bacteria -covered by abx for cellulitis Acute on chronic kidney disease -IV fluids -stopping vancomycin -stopping ARB and holding diuretics -continue to monitor RFTs Hyperkalemia -cardiology is holding ARB -continue to monitor Diabetes mellitus -SSI -diabetic diet HTN HLD CAD s/p cardiac stent -cardiology consulted -home meds minus ARB which is being held COPD -supplemental O2 and home meds Hypothyroidism -home levothyroxine Start PT/OT Moving to 4th floor DVT prophylaxis: lovenox and SCDs GI prophylaxis: protonix Code status: full code LETITIA MCCLOUD DO 06/19/22 0616: History of Present Illness HPI/Chief Complaint Patient seen and examined Reviewed above note IV antibiotics we will continue Source: patient Exam Limitations: no limitations Review of Systems Constitutional: see HPI Physical Exam Physical Exam General Appearance: No Apparent Distress, Chronically ill, Obese Respiratory: Lungs Clear, Normal Breath Sounds Cardiovascular: Regular Rate, Rhythm Assessment/Plan Admission Diagnosis Assessment: Left upper extremity cellulitis Left upper extremity lymphedema severe Chronic debility Plan: Moved to fourth floor Admission Status: Inpatient Order (span 2 midnights) Reason for Inpatient Admission: Severe lymphedema with cellulitis Supervisory-Addendum Brief Verification & Attestation Participated in pt care: history, MDM, physical Personally performed: exam, history, MDM, supervision of care Care discussed with: Medical Student Procedures: n/a Results interpretation: Verified all documentation Verification and Attestation of Medical Student E/M Service A medical student performed and documented this service in my presence. I reviewed and verified all information documented by the medical student and made modifications to such information, when appropriate. I personally performed the physical exam and medical decision making. Letitia Mccloud, Jun 19, 2022,06:16 ROXIE COATES Jun 18, 2022 13:06 LETITIA MCCLOUD DO Jun 19, 2022 06:16
--- NOTE | 2022-06-18 14:25 | Physical Therapy Evaluation ---
PT Evaluation-General Medical Diagnosis Admission Date Jun 17, 2022 at 16:14 Medical Diagnosis: General weakness, fall x 2 Onset Date: Jun 17, 2022 Therapy Diagnosis Therapy Diagnosis: Gait deficit, strength deficit Precautions Precautions/Isolations: Fall Prevention, Standard Precautions, Pressure Ulcer Weight Bear Status Right Lower Extremity: Right Full Weight Bearing Left Lower Extremity: Left Full Weight Bearing Referral Physician: Dr. Patel Reason for Referral: Evaluation/Treatment Medical History Pertinent Medical History: Arthritis, DM, Heart Failure, HTN, Neuropathy Social History Home: Single Level Current Living Status: Spouse Entry Into Home: Ramp Prior Prior Level of Function SCALE: Activities may be completed with or without assistive devices. 0-Foxftonusj-voahobm completes the activity by him/herself with no assistance from a helper. 5-Set-up or Clean-up Assistance-helper sets up or cleans up; patient completes activity. [place] assists only prior to or following the activity. 4-Supervision or Touching Assistance-helper provides verbal cues and/or touching/steadying and/or contact guard assistance as patient completes activity. Assistance may be provided throughout the activity or intermittently. 3-Partial/Moderate Assistance-helper does LESS THAN HALF the effort. [place] lifts, holds or supports trunk or limbs, but provides less than half the effort. 2-Substantial/Maximal Assistance-helper does MORE THAN HALF the effort. [place] lifts or holds trunk or limbs and provides more than half the effort. 2-Ijtbhlfig-hrpdny does ALL the effort. Patient does none of the effort to complete the activity. Or, the assistance of 2 or more helpers is required for the patient to complete the activity. If activity was not attempted, code reason: 7-Patient Refused. 9-Not Applicable-not attempted and the patient did not perform the activity before the current illness, exacerbation or injury. 10-Not Attempted due to Environmental Limitations-(lack of equipment, weather restraints, etc.). 88-Not Attempted due to Medical Conditions or Safety Concerns. Bed Mobility: 6 Transfers (B,C,W/C): 6 Gait: 6 Stairs: 88 Indoor Mobility (Ambulation): Independent Stairs: Not Applicalbe Prior Devices Use: Walker PT Evaluation-Current Subjective Patient lying supine in bed upon PT arrival, agreeable to treatment. Notes she is very scared of falling and fearful that she has become so weak. Patient rates pain at 8/10 in her left knee. Objective Patient Orientation: Person, Place, Situation ROM/Strength ROM Lower Extremities Left knee flexion to ~90 degrees actively due to pain. All other right and left LE range of motions WFLs. Strength Lower Extremities 3/5 Bilaterally all LE motions. Sensory Vision: Functional Hearing: Functional Sensation Right Lower Extremit: Intact Sensation Left Lower Extremity: Intact Transfers Roll Left to Right (QC): 2 Sit to Lying (QC): 2 Lying to Sitting/Side of Bed(Q: 2 Sit to Stand (QC): 3 Gait Does the Patient Walk?: No and Walking Goal IS indicated Mode of Locomotion: Both Anticipated Mode of Locomotion: Both Gait Assistive Device: FWW Comments/Gait Description Patient able to sidestep to the right 3 steps each LE Balance Sitting Static: Fair Sitting Dynamic: Fair Standing Static: Poor Standing Dynamic: Poor Assessment/Needs Patient tolerated treatment poorly. Pain in knee and fear of falling are two obstacles that will hinder rehabilitation. Patient performs all bed mobility with max A and transfers with Mod A. Patient performs sit to stand with mod A and is able to sidestep to the right 3 steps each LE. Patient becomes tearful and requests to sit down stating "I don't know whats wrong, Maddie never been this weak before." Patient in bed post treatment with all needs met, nursing notified, call light in hand. Rehab Potential: Fair PT Field Geologist Goals Residential Goals PT Residential Goals Time Frame: Jul 03, 2022 Roll Left & Right (QC): 5 Sit to Lying (QC): 5 Lying-Sitting on Side/Bed(QC): 5 Sit to Stand (QC): 5 Chair/Npv-jp-Yrrwa Xfer(QC): 4 Toilet Transfer (QC): 4 Car Transfer (QC): 4 Does the Patient Walk: Yes Walk 10 feet (QC): 3 Walk 50ft with 2 Turns (QC): 3 Walk 150 ft (QC): 3 PT Plan Problem List Problem List: Activity Tolerance, Functional Strength, Safety, Balance, Gait, Transfer, Bed Mobility, ROM Treatment/Plan Treatment Plan: Continue Plan of Care Treatment Plan: Bed Mobility, Education, Functional Activity Tasha, Functional Strength, Gait, Safety, Therapeutic Exercise, Transfers Treatment Duration: Jul 23, 2022 Frequency: 6 times per week Estimated Hrs Per Day: .25 hour per day Patient and/or Family Agrees t: Yes Safety Risks/Education Patient Education: Gait Training, Transfer Techniques Teaching Recipient: Patient Teaching Methods: Demonstration, Discussion Response to Teaching: Reinforcement Needed Time/GCodes Time In: 1338 Time Out: 1410 Total Billed Treatment Time: 32 Total Billed Treatment Visit, LOUIS MARTÍNEZ JOHN A PT Jun 18, 2022 14:25
[2022-06-18] MEDS: VENlafaxine 37.5 MG (EFFEXOR) TAB PO SCH ×2 (14:27→20:32)
--- NOTE | 2022-06-18 14:27 | Occupational Therapy Eval ---
OT Evaluation-General/PLF Medical Diagnosis Admission Date Jun 17, 2022 at 16:14 Medical Diagnosis: Cellulitis LUE Onset Date: Jun 17, 2022 Therapy Diagnosis Therapy Diagnosis: weakness, impaired balance Precautions Precautions/Isolations: Fall Prevention, Standard Precautions, Pressure Ulcer Referral Referral Reason: Evaluation/Treatment Medical History Pertinent Medical History: Arthritis, DM, Heart Failure, HTN, Neuropathy Additional Medical History LUE lymphedema, breast cancer Current History Pt presented to hospital with generalized weakness and a fall Per patient, she lives in a single story home with her spouse and 12 year old granddaughter. Her niece comes by to assist with dressing, bathing, cleaning, cooking, and laundry. Her spouse assists with clothing management pre/post toileting when her niece is not available. Pt uses a walker and 2L O2 at baseline. Reviewed History: Yes Social History Home: Single Level Current Living Status: Spouse Entry Into Home: Ramp ADL-Prior Level of Function SCALE: Activities may be completed with or without assistive devices. 1-Zrefkycvoa-oinysav completes the activity by him/herself with no assistance from a helper. 5-Set-up or Clean-up Assistance-helper sets up or cleans up; patient completes activity. [place] assists only prior to or following the activity. 4-Supervision or Touching Assistance-helper provides verbal cues and/or touching/steadying and/or contact guard assistance as patient completes activity. Assistance may be provided throughout the activity or intermittently. 3-Partial/Moderate Assistance-helper does LESS THAN HALF the effort. [place] lifts, holds or supports trunk or limbs, but provides less than half the effort. 2-Substantial/Maximal Assistance-helper does MORE THAN HALF the effort. [place] lifts or holds trunk or limbs and provides more than half the effort. 8-Vacxptsqr-voesyh does ALL the effort. Patient does none of the effort to complete the activity. Or, the assistance of 2 or more helpers is required for the patient to complete the activity. If activity was not attempted, code reason: 7-Patient Refused. 9-Not Applicable-not attempted and the patient did not perform the activity before the current illness, exacerbation or injury. 10-Not Attempted due to Environmental Limitations-(lack of equipment, weather restraints, etc.). 88-Not Attempted due to Medical Conditions or Safety Concerns. Self Care: Needed Some Help Functional Cognition: Unknown DME/Equipment: Bath Chair, Grab Bars, Tub/Shower Drive Self: No OT Current Status Subjective Pt just returning to bed with physical therapist at OT arrival. Reports she is very fatigued. Appearance Pt left supine in bed, all needs within reach at OT departure. Mental Status/Objective Patient Orientation: Person, Place, Situation Attachments: IV, Oxygen, Telemetry Current Hand Dominance: Right Upper Extremity ROM RUE WFL LUE with lymphedema. Shoulder flexion: <1/4 AROM, Limited elbow/hand range secondary to edema ADL-Treatment On/Off Footwear (QC): 1 (baseline) Toileting Hygiene (QC): 1 (per report) Pt returning to supine with physical therapy at OT arrival. PT reports she stood with mod a and took 2-3 steps to HOB before needing to rest secondary to fatigue. Pt declines getting back up to side of bed. She reports she receives assistance with all adls (except eating and grooming) at baseline, however is weaker than normal. Goals to address endurance, compensatory strategies, and strengthening to reduce burden of care on caregiver. Pt could benefit from lymphedema therapist referral. Education OT Patient Education: Correct positioning, Exercise program, Purpose of tx/functional activities, Safety issues Teaching Recipient: Patient Teaching Methods: Discussion Response to Teaching: Verbalize Understanding, Reinforcement Needed OT Call Center Supervisor Goals Call Center Supervisor Goals Time Frame: Jun 25, 2022 Eating (QC): 5 Oral Hygiene (QC): 5 Upper Body Dressing (QC): 4 Complete HEP independently Additional Goals: 1-Demonstrate ADL Tasks, 2-Verbalize Understanding, 3-Improv eStrength/Tasha 1=Demonstrate adherence to instructed precautions during ADL tasks. 2=Patient will verbalize/demonstrate understanding of assistive devices/modifications for ADL. 3=Patient will improve strength/tolerance for activity to enable patient to p erform ADL's. OT Education/Plan Problem List/Assessment Assessment: Decreased Activ Tolerance, Decreased Safety Aware, Decreased UE Strength, Dependent Transfers, Edema, Impaired Bed Mobility, Impaired Cognition, Impaired Funct Balance, Impaired Self-Care Skills, Restricted Funct UE ROM Discharge Recommendations Plan/Recommendations: Continue POC Treatment Plan/Plan of Care Treatment,Training & Education: Yes Patient would benefit from OT for education, treatment and training to promote independence in ADL's, mobility, safety and/or upper extremity function for ADL's. Plan of Care: ADL Retraining, Caregiver Training, Cognitive Retraining, Functional Mobility, Group Exercise/Act as Ind, UE Funct Exercise/Act Treatment Duration: Jun 25, 2022 Frequency: 3 times per week (3-5x/week) Estimated Hrs Per Day: .25 hour per day Agreement: Yes Rehab Potential: Poor Time/GCodes Start Time: 14:09 Stop Time: 14:19 Total Time Billed (hr/min): 10 Billed Treatment Time 1 visit Maranda Ramos OT Jun 18, 2022 14:27
[2022-06-18] MEDS: HYDROmorphone 2 MG/ML VIAL (DILAUDID) IV PRN (15:29)
[2022-06-18 15:50] VITALS: BP 107/53
[2022-06-18] MEDS ORDERED: VANCOMYCIN 1500 MG/NS 500 ML IVPB IV SCH ×2 (17:00)
[2022-06-18] MEDS: inSUlin ASPART (NovoLOG) 1 UNIT/0.01 ML (CHARGE PER UNIT) SQ SCH (17:22)
[2022-06-18 19:38] VITALS: BP 101/49
[2022-06-18] MEDS: AtorvaSTATin TABLET 10 MG TABLET PO SCH (20:33)
[2022-06-18] MEDS: GABAPENTIN 300 MG (NEURONTIN) CAP PO SCH (20:33)
[2022-06-19] VITALS: BP 131/59
[2022-06-19] MEDS: RT-ALBUTEROL/IPRATROPIUM 3 ML (DUONEB) VIAL IH SCH ×6 (02:58→22:58)
[2022-06-19 04:09] VITALS: BP 118/63
[2022-06-19 06:19] LABS: BASOPHILS # (AUTO) 0.1 10^3/uL (0.0-0.1); BASOPHILS % (AUTO) 0 % (0-10); EOSINOPHILS % (AUTO) 0 % (0-10); HEMATOCRIT 25 % (35-52); HEMOGLOBIN 7.5 g/dL (11.5-16.0); LYMPHOCYTES # (AUTO) 1.5 10^3/uL (1.0-4.0); LYMPHOCYTES % (AUTO) 7 % (12-44); MEAN CORPUSCULAR HEMOGLOBIN 28 pg (25-34); MEAN CORPUSCULAR HGB CONC 31 g/dL (32-36); MEAN CORPUSCULAR VOLUME 91 fL (80-99); MEAN PLATELET VOLUME 10.7 fL (9.0-12.2); MONOCYTES # (AUTO) 1.1 10^3/uL (0.0-1.0); MONOCYTES % (AUTO) 5 % (0-12); NEUTROPHILS # (AUTO) 18.3 10^3/uL (1.8-7.8); NEUTROPHILS % (AUTO) 86 % (42-75); PLATELET COUNT 225 10^3/uL (130-400); WHITE BLOOD COUNT 21.2 10^3/uL (4.3-11.0)
--- NOTE | 2022-06-19 06:31 | Progress Note - Hospitalist ---
Subjective HPI/CC On Admission Date Seen by Provider: Jun 19, 2022 Time Seen by Provider: 11:00 Patient seen and examined Reviewed above note IV antibiotics we will continue Subjective/Events-last exam Spoke to Dr Teague in-depth at 0820 via phone call and recommended to continue IVF at NS 100cc/hr and flush catheter line and be sure there is no obstruction. No indication for dialysis now. Patient doing pretty well Feels like she cannot really move around much She is very sore CPK ordered to rule out rhabdomyolysis as source of kidney failure Bowels have not moved yet so initiated laxatives Review of Systems General: Fatigue, Malaise Focused Exam Lactate Level 06/18/22 10:00: Lactic Acid Level 1.84 Objective Exam Vital Signs Vital Signs Date Time Temp Pulse Resp B/P (MAP) Pulse Ox O2 Delivery O2 Flow Rate FiO2 06/19/22 11:20 36.0 57 18 106/59 (75) 99 Nasal Cannula 3.00 Capillary Refill : Less Than 3 Seconds General Appearance: No Apparent Distress, WD/WN, Chronically ill, Obese Respiratory: Lungs Clear, Normal Breath Sounds Cardiovascular: Regular Rate, Rhythm Neurologic/Psychiatric: Alert, Oriented x3 Skin: Rash (Improved left arm rash) Results/Procedures Lab Laboratory Tests 06/18/22 15:12 06/19/22 06:07 Patient resulted labs reviewed. Assessment/Plan Assessment and Plan Assess & Plan/Chief Complaint LUE lymphedema Cellulitis -started on vancomycin and levofloxacin -vancomycin d/c due to SHEREE -starting linezolid -pain control UTI -UA showed WBCs and large bacteria-Klebsiella/Enterobacter preliminary on fluoroquinolone -covered by abx for cellulitis Acute on chronic kidney disease -IV fluids to continue per nephrology -Stopped vancomycin yesterday -stopping ARB and holding diuretics -continue to monitor RFTs Hyperkalemia -cardiology is holding ARB -continue to monitor Diabetes mellitus -SSI -diabetic diet HTN HLD CAD s/p cardiac stent -cardiology consulted -home meds minus ARB which is being held COPD -supplemental O2 and home meds Hypothyroidism -home levothyroxine Rhabdomyolysis PT and OT Needs longterm at discharge JESÚS MCCLOUD DO Jun 19, 2022 06:31
[2022-06-19 06:33] LABS: ALBUMIN 2.6 GM/DL (3.2-4.5); POTASSIUM 5.3 MMOL/L (3.6-5.0)
[2022-06-19 06:34] LABS: CALCIUM 7.8 MG/DL (8.5-10.1)
[2022-06-19] MEDS: inSUlin ASPART (NovoLOG) 1 UNIT/0.01 ML (CHARGE PER UNIT) SQ SCH ×3 (06:35→17:02)
[2022-06-19] MEDS: ENOXAPARIN INJECTION 30 MG/0.3 ML SYR SC SCH (06:35)
[2022-06-19] MEDS: NS IV 1000 ML 1,000 ML IV SCH ×2 (06:35→16:58)
[2022-06-19 06:36] LABS: TOTAL PROTEIN 5.4 GM/DL (6.4-8.2)
[2022-06-19 06:37] LABS: BILIRUBIN,TOTAL 0.5 MG/DL (0.1-1.0)
[2022-06-19 06:39] LABS: CREATININE SERUM 3.16 MG/DL (0.60-1.30)
[2022-06-19] MEDS: LEVOTHYROXINE 125 MCG (LEVOTHROID) TABLET PO SCH (06:39)
[2022-06-19] MEDS: inSUlin ASPART (NovoLOG) 1 UNIT/0.01 ML (CHARGE PER UNIT) SC SCH ×4 (06:40→21:00)
[2022-06-19 07:40] VITALS: BP 132/56
[2022-06-19] MEDS: CLOPIDOGREL 75 MG (PLAVIX) TABLET PO SCH (08:26)
[2022-06-19] MEDS: GABAPENTIN 300 MG (NEURONTIN) CAP PO SCH ×2 (08:26→19:58)
[2022-06-19] MEDS: DOCUSATE SODIUM 100 MG (COLACE) CAP PO SCH ×2 (08:27→19:58)
[2022-06-19] MEDS: ASPIRIN 81 MG CHEW (CHILDREN'S ASA) PO SCH (08:27)
[2022-06-19] MEDS: VENlafaxine 37.5 MG (EFFEXOR) TAB PO SCH ×3 (08:27→19:57)
[2022-06-19] MEDS ORDERED: FUROSEMIDE 20 MG (LASIX) TAB PO SCH (09:00)
[2022-06-19 11:20] VITALS: BP 106/59
--- NOTE | 2022-06-19 12:17 | Physical Therapy Progress Note ---
Therapy Progress Note Patient refused stating she is very sore and "I'm still pretty banged up". Will attempt treatment again on next available treatment day. ZAKIA TA PT Jun 19, 2022 12:17
--- NOTE | 2022-06-19 12:29 | Progress Note - Cardiology ---
Cardiology SOAP Progress Note Subjective: Gen weakness and malaise No cp or palp or syncope or shortness of breath at rest No n/v/d Objective: I&O/Vital Signs 06/19/22 06/19/22 06/19/22 06/19/22 01:00 02:58 04:09 07:00 Temp 36.0 Pulse 60 61 62 Resp 18 B/P (MAP) 118/63 (81) Pulse Ox 93 99 O2 Delivery High Flow N/C Nasal Cannula O2 Flow Rate 3.00 3.00 06/19/22 06/19/22 06/19/22 06/19/22 07:40 09:00 10:20 11:20 Temp 36.2 36.0 Pulse 64 57 Resp 18 18 B/P (MAP) 132/56 (81) 106/59 (75) Pulse Ox 98 96 96 99 O2 Delivery Nasal Cannula High Flow N/C High Flow N/C Nasal Cannula O2 Flow Rate 3.00 3.00 3.00 3.00 06/19/22 00:00 Intake Total 1000 ml Balance 1000 ml Constitutional: AAO x 3 Respiratory: No accessory muscle use, No respiratory distress; chest expansion is symmetric, chest is bilaterally symmetric, other (dminished bilat) Cardiovascular: regular rate-rhythm; No JVD; S1 and S2, systolic murmur Gastrointestional: No tender; soft, round, audible bowel sounds Extremities: other (Swelling of LUE - chronic), no lower extremity edema bilateral Neurologic/Psychiatric: other (moves all limbs equally) Skin: other (ecchymosis to right left side of her face and chin; ecchymosis to he right hand and lower arm) Results/Procedures: Labs Laboratory Tests 06/18/22 14:13: Glucometer 227H 06/18/22 15:12: Potassium Level 5.1H 06/18/22 15:58: Glucometer 206H 06/18/22 20:19: Glucometer 112H 06/19/22 06:07: White Blood Count 21.2H, Red Blood Count 2.70L, Hemoglobin 7.5L, Hematocrit 25L, Mean Corpuscular Volume 91, Mean Corpuscular Hemoglobin 28, Mean Corpuscular Hemoglobin Concent 31L, Red Cell Distribution Width 14.6H, Platelet Count 225, Mean Platelet Volume 10.7, Immature Granulocyte % (Auto) 1, Neutrophils (%) (Auto) 86H, Lymphocytes (%) (Auto) 7L, Monocytes (%) (Auto) 5, Eosinophils (%) (Auto) 0, Basophils (%) (Auto) 0, Neutrophils # (Auto) 18.3H, Lymphocytes # (Auto) 1.5, Monocytes # (Auto) 1.1H, Eosinophils # (Auto) 0.0, Basophils # (Auto) 0.1, Immature Granulocyte # (Auto) 0.2H, Sodium Level 138, Potassium Level 5.3H, Chloride Level 107, Carbon Dioxide Level 19L, Anion Gap 12, Blood Urea Nitrogen 61H, Creatinine 3.16#H, Estimat Glomerular Filtration Rate 15, BUN/Creatinine Ratio 19, Glucose Level 125H, Calcium Level 7.8L, Corrected Calcium 8.9, Total Bilirubin 0.5, Aspartate Amino Transf (AST/SGOT) 21, Alanine Aminotransferase (ALT/SGPT) 19, Alkaline Phosphatase 217H, Total Creatine Kinase 221H, Total Protein 5.4L, Albumin 2.6L 06/19/22 10:51: Glucometer 80 Microbiology 06/17/22 Urine Culture - Preliminary, Resulted Klebsiella/Enterobacter spec 06/17/22 Blood Culture - Preliminary, Resulted No growth Laboratory Tests 06/18/22 06:30 06/18/22 06:45 06/18/22 15:12 06/19/22 06:07 A/P: Assessment: Ac renal failure and electrolyte abnormalities - Dr Patel managing ? sepsis and cellulitis of LUE - Dr Patel managing Bruising over and around R orbit Aortic stenosis-moderate, asymptomatic - 2D echo was done on April 19, [address] Flores showing moderate stenosis, ejection fraction 45 to 50%, severe pulmonary hypertension with PA pressure 65 to 70 mmHg Coronary artery disease - Underwent LHC on 04/20/[address] Flores after having abnormal stress test showing coronary artery disease primarily consisting of 70% mid vessel stenosis of the left anterior descending. This lesion was stented with Promus 3.0 x 18 mm stent with no significant residual stenosis. The rest of the coronary vessels do not exhibit significant obstructive disease. Mild impairment of global left ventricular systolic function with ejection fraction 45% to 50% Hypertension HLP - statin tx DM - management per medical services. Hypothyroidism COPD - oxygen dependent H/O breast cancer with left mastectomy and residual LUE lymphedema Obesity CKD Diabetic neuropathy Chronic peripheral edema Plan: Continue home medications including Plavix and ASA d/t recent stenting ARB d/c'd due to renal failure and mild hyperkalemia We recommend that the hospitalist service closely monitor labs and take corrective action as needed TRACEY DOSS MD FACP [facility] Jun 19, 2022 12:29
[2022-06-19] MEDS: SENNA W/DOCUSATE (SENOKOT S) TABLET PO SCH ×2 (13:27→19:59)
[2022-06-19] MEDS: LACTULOSE SYRUP 10GM/15ML (ENULOSE) 30ML UDC PO SCH ×3 (13:27→19:59)
[2022-06-19] MEDS ORDERED: LEVOFLOXACIN 750 MG/D5W 150 ML PRE-MIX IV SCH (15:00)
[2022-06-19] MEDS ORDERED: TROUGH ORDER-PHARMACY XX NR (16:00)
[2022-06-19 16:27] VITALS: BP 122/58
[2022-06-19] MEDS: AtorvaSTATin TABLET 10 MG TABLET PO SCH (19:58)
[2022-06-19 20:30] VITALS: BP 98/47
[2022-06-20] VITALS (7 sets, daily range): BP systolic 94–154; BP diastolic 52–81
[2022-06-20] MEDS: ZOLPIDEM 5 MG (AMBIEN) TAB PO PRN ×2 (01:14→21:46)
[2022-06-20] MEDS: RT-ALBUTEROL/IPRATROPIUM 3 ML (DUONEB) VIAL IH SCH ×6 (02:02→21:48)
[2022-06-20 05:59] LABS: BASOPHILS % (AUTO) 0 % (0-10); EOSINOPHILS # (AUTO) 0.1 10^3/uL (0.0-0.3); EOSINOPHILS % (AUTO) 1 % (0-10); HEMATOCRIT 24 % (35-52); HEMOGLOBIN 7.1 g/dL (11.5-16.0); LYMPHOCYTES # (AUTO) 0.8 10^3/uL (1.0-4.0); LYMPHOCYTES % (AUTO) 6 % (12-44); MEAN CORPUSCULAR HEMOGLOBIN 28 pg (25-34); MEAN CORPUSCULAR HGB CONC 30 g/dL (32-36); MEAN CORPUSCULAR VOLUME 92 fL (80-99); MEAN PLATELET VOLUME 10.9 fL (9.0-12.2); MONOCYTES # (AUTO) 0.5 10^3/uL (0.0-1.0); MONOCYTES % (AUTO) 3 % (0-12); NEUTROPHILS # (AUTO) 12.5 10^3/uL (1.8-7.8); NEUTROPHILS % (AUTO) 90 % (42-75); PLATELET COUNT 223 10^3/uL (130-400); WHITE BLOOD COUNT 13.9 10^3/uL (4.3-11.0)
[2022-06-20 06:08] LABS: ALBUMIN 2.5 GM/DL (3.2-4.5); POTASSIUM 5.3 MMOL/L (3.6-5.0)
[2022-06-20 06:09] LABS: CALCIUM 7.5 MG/DL (8.5-10.1)
[2022-06-20 06:10] LABS: TOTAL PROTEIN 5.2 GM/DL (6.4-8.2)
[2022-06-20 06:12] LABS: BILIRUBIN,TOTAL 0.5 MG/DL (0.1-1.0)
[2022-06-20 06:14] LABS: CREATININE SERUM 3.57 MG/DL (0.60-1.30)
[2022-06-20] MEDS: inSUlin ASPART (NovoLOG) 1 UNIT/0.01 ML (CHARGE PER UNIT) SQ SCH ×3 (06:35→17:18)
[2022-06-20] MEDS: inSUlin ASPART (NovoLOG) 1 UNIT/0.01 ML (CHARGE PER UNIT) SC SCH ×4 (06:36→21:46)
[2022-06-20] MEDS: LEVOTHYROXINE 125 MCG (LEVOTHROID) TABLET PO SCH (06:36)
[2022-06-20] MEDS: ENOXAPARIN INJECTION 30 MG/0.3 ML SYR SC SCH (06:36)
[2022-06-20] MEDS: NS IV 1000 ML 1,000 ML IV SCH ×3 (06:41→17:04)
--- NOTE | 2022-06-20 07:30 | Progress Note - Hospitalist ---
Subjective HPI/CC On Admission Date Seen by Provider: Jun 20, 2022 Time Seen by Provider: 11:00 Patient seen and examined Reviewed above note IV antibiotics we will continue Subjective/Events-last exam Patient doing ok Confusion overnight UOP is slow but 700 yesterday 700cc Updated Nephrology and recommended to start sodium bicarb tablets and continue NS at 100cc/hr Getting OOB today Labs reviewed Updated patient on lab results and kidney failure diagnosis No BM yet so will give dose of Kayexelate along with other laxatives Review of Systems General: Fatigue, Malaise Focused Exam Lactate Level 06/18/22 10:00: Lactic Acid Level 1.84 Objective Exam Vital Signs Vital Signs Date Time Temp Pulse Resp B/P (MAP) Pulse Ox O2 Delivery O2 Flow Rate FiO2 06/20/22 14:34 100 High Flow N/C 2.00 06/20/22 12:15 114/54 (74) 06/20/22 11:20 36.1 67 16 Capillary Refill : Less Than 3 Seconds General Appearance: No Apparent Distress, WD/WN, Obese Respiratory: Lungs Clear, Normal Breath Sounds Cardiovascular: Regular Rate, Rhythm Neurologic/Psychiatric: Alert, Oriented x3, No Motor/Sensory Deficits, Normal Mood/Affect Results/Procedures Lab Laboratory Tests 06/20/22 05:28 Patient resulted labs reviewed. Assessment/Plan Assessment and Plan Assess & Plan/Chief Complaint LUE lymphedema Cellulitis -started on vancomycin and levofloxacin and now DC since cellulitis resolved -vancomycin d/c due to SHEREE after 1 dose given -pain control UTI -UA showed WBCs and large bacteria-Klebsiella/Enterobacter preliminary on fluoroquinolone -covered by abx for cellulitis -repeat UA recommended per Nephrology and 2+protein noted otherwise no acute abnl Acute on chronic kidney disease -IV fluids to continue per nephrology -Stopped vancomycin after 1 dose -stopping ARB and holding diuretics -continue to monitor RFTs Hyperkalemia -cardiology is holding ARB -continue to monitor -Kayexelate Diabetes mellitus -SSI -diabetic diet HTN HLD CAD s/p cardiac stent -cardiology consulted -home meds minus ARB which is being held COPD -supplemental O2 and home meds Hypothyroidism -home levothyroxine Rhabdomyolysis PT and OT Needs fdc at discharge Monitor creat May need transferred if kidney function continues to worsen JESÚS MCCLOUD DO Jun 20, 2022 07:30
[2022-06-20] MEDS: VENlafaxine 37.5 MG (EFFEXOR) TAB PO SCH ×3 (08:47→21:09)
[2022-06-20] MEDS: SODIUM BICARBONATE 650 MG TABLET PO SCH ×3 (08:47→21:09)
[2022-06-20] MEDS: LACTULOSE SYRUP 10GM/15ML (ENULOSE) 30ML UDC PO SCH ×3 (08:48→21:09)
[2022-06-20] MEDS: GABAPENTIN 300 MG (NEURONTIN) CAP PO SCH ×2 (08:48→21:09)
[2022-06-20] MEDS: ASPIRIN 81 MG CHEW (CHILDREN'S ASA) PO SCH (08:48)
[2022-06-20] MEDS: CLOPIDOGREL 75 MG (PLAVIX) TABLET PO SCH (08:48)
[2022-06-20] MEDS: DOCUSATE SODIUM 100 MG (COLACE) CAP PO SCH ×2 (08:48→21:09)
[2022-06-20] MEDS: SENNA W/DOCUSATE (SENOKOT S) TABLET PO SCH ×2 (08:48→21:09)
[2022-06-20 08:57] LABS: CLARITY,URINE CLOUDY; COLOR,URINE YELLOW; GLUCOSE, URINE (UA) NEGATIVE (NEGATIVE); KETONES,URINE NEGATIVE (NEGATIVE); LEUKOCYTE ESTERASE ,URINE TRACE (NEGATIVE); NITRITE,URINE NEGATIVE (NEGATIVE); PH,URINE 5.5 (5-9); PROTEIN,URINE 2+ (NEGATIVE)
[2022-06-20 09:12] LABS: AMORPHOUS SEDIMENT,UR MOD AMOR URATES /LPF; BACTERIA,URINE LARGE /HPF; RBC,URINE 0-2 /HPF; WBC,URINE 0-2 /HPF
[2022-06-20 10:54] LABS: BILIRUBIN,URINE 1+ (NEGATIVE)
[2022-06-20] MEDS ORDERED: BISACODYL 10 MG SUPP (DULCOLAX) PR NR (12:00)
[2022-06-20] MEDS ORDERED: SODIUM POLYSTYRENE POWDER 15 GM BOTTLE PO NR (12:00)
--- NOTE | 2022-06-20 13:29 | Progress Note - Cardiology ---
Cardiology SOAP Progress Note Subjective: Gen weakness and malaise No cp or palp or syncope No n/v Objective: I&O/Vital Signs 06/20/22 06/20/22 06/20/22 06/20/22 02:02 03:45 07:13 07:18 Temp 36.6 36.6 Pulse 64 70 Resp 16 18 B/P (MAP) 123/63 (83) 127/60 (82) Pulse Ox 99 96 98 98 O2 Delivery High Flow N/C Nasal Cannula High Flow N/C Nasal Cannula O2 Flow Rate 4.00 3.00 4.00 3.00 06/20/22 06/20/22 06/20/22 06/20/22 07:45 09:56 11:20 12:15 Temp 36.1 Pulse 67 Resp 16 B/P (MAP) 94/52 (66) 114/54 (74) Pulse Ox 96 100 97 O2 Delivery High Flow N/C High Flow N/C Nasal Cannula O2 Flow Rate 3.00 4.00 3.00 06/20/22 00:00 Intake Total 1150 ml Output Total 550 ml Balance 600 ml Constitutional: AAO x 3 Respiratory: No accessory muscle use, No respiratory distress; chest expansion is symmetric, chest is bilaterally symmetric, other (dminished bilat) Cardiovascular: regular rate-rhythm; No JVD; S1 and S2, systolic murmur Gastrointestional: No tender; soft, round, audible bowel sounds Extremities: other (Swelling of LUE - chronic), no lower extremity edema bilateral Neurologic/Psychiatric: other (moves all limbs equally) Skin: other (ecchymosis to right left side of her face and chin; ecchymosis to he right hand and lower arm) Results/Procedures: Labs Laboratory Tests 06/19/22 16:54: Glucometer 142H 06/19/22 21:07: Glucometer 179H 06/20/22 05:28: White Blood Count 13.9H, Red Blood Count 2.58L, Hemoglobin 7.1L, Hematocrit 24L, Mean Corpuscular Volume 92, Mean Corpuscular Hemoglobin 28, Mean Corpuscular Hemoglobin Concent 30L, Red Cell Distribution Width 14.6H, Platelet Count 223, Mean Platelet Volume 10.9, Immature Granulocyte % (Auto) 1, Neutrophils (%) (Auto) 90H, Lymphocytes (%) (Auto) 6L, Monocytes (%) (Auto) 3, Eosinophils (%) (Auto) 1, Basophils (%) (Auto) 0, Neutrophils # (Auto) 12.5H, Lymphocytes # (Auto) 0.8L, Monocytes # (Auto) 0.5, Eosinophils # (Auto) 0.1, Basophils # (Auto) 0.0, Immature Granulocyte # (Auto) 0.1, Sodium Level 136, Potassium Level 5.3H, Chloride Level 106, Carbon Dioxide Level 16L, Anion Gap 14, Blood Urea Nitrogen 63H, Creatinine 3.57#H, Estimat Glomerular Filtration Rate 13, BUN/Creatinine Ratio 18, Glucose Level 217H, Calcium Level 7.5L, Corrected Calcium 8.7, Total Bilirubin 0.5, Aspartate Amino Transf (AST/SGOT) 17, Alanine Aminotransferase (ALT/SGPT) 16, Alkaline Phosphatase 237H, Total Protein 5.2L, Albumin 2.5L 06/20/22 08:48: Urine Color YELLOW, Urine Clarity CLOUDY, Urine pH 5.5, Urine Specific [place] >=1.030, Urine Protein 2+H, Urine Glucose (UA) NEGATIVE, Urine Ketones NEGATIVE, Urine Nitrite NEGATIVE, Urine Bilirubin 1+H, Urine Urobilinogen 1.0, Urine Leukocyte Esterase TRACEH, Urine RBC (Auto) 1+H, Urine RBC 0-2, Urine WBC 0-2, U rine Crystals PRESENTH, Urine Amorphous Sediment MOD MEI URATESH, Urine Bacteria LARGEH, Urine Casts NONE, Urine Mucus NEGATIVE, Urine Culture Indicated YES 06/20/22 10:33: Glucometer 191H Microbiology 06/17/22 Urine Culture - Preliminary, Resulted Klebsiella/Enterobacter spec 06/17/22 Blood Culture - Preliminary, Resulted No growth Laboratory Tests 06/18/22 15:12 06/19/22 06:07 06/20/22 05:28 A/P: Assessment: Ac renal failure and hyperkalemia, worsening - Dr Patel managing ?sepsis and cellulitis of LUE - Dr Patel managing Bruising over and around R orbit Aortic stenosis-moderate, asymptomatic - 2D echo was done on April 19, [address] Flores showing moderate stenosis, ejec tion fraction 45 to 50%, severe pulmonary hypertension with PA pressure 65 to 70 mmHg Coronary artery disease - Underwent LHC on 04/20/[address] Flores after having abnormal stress test showing coronary artery disease primarily consisting of 70% mid vessel stenosis of the left anterior descending. This lesion was stented with Promus 3.0 x 18 mm stent with no significant residual stenosis. The rest of the coronary vessels do not exhibit significant obstructive disease. Mild impairment of global left ventricular systolic function with ejection fraction 45% to 50% Hypertension HLP - statin tx DM - management per medical services. Hypothyroidism COPD - oxygen dependent H/O breast cancer with left mastectomy and residual LUE lymphedema Obesity CKD Diabetic neuropathy Chronic peripheral edema Plan: Continue home medications including Plavix and ASA d/t recent stenting ARB d/c'd due to renal failure and mild hyperkalemia Treat hyperkalemia Discussed with Dr Patel this am TRACEY DOSS MD FACP FAC CCDS Jun 20, 2022 13:29
[2022-06-20] MEDS: AtorvaSTATin TABLET 10 MG TABLET PO SCH (21:09)
[2022-06-21] VITALS (7 sets, daily range): BP systolic 95–126; BP diastolic 57–72
[2022-06-21] MEDS: RT-ALBUTEROL/IPRATROPIUM 3 ML (DUONEB) VIAL IH SCH ×3 (02:36→20:57)
[2022-06-21] MEDS: NS IV 1000 ML 1,000 ML IV SCH ×2 (03:12→12:22)
[2022-06-21 05:39] LABS: BASOPHILS % (AUTO) 0 % (0-10); EOSINOPHILS # (AUTO) 0.2 10^3/uL (0.0-0.3); EOSINOPHILS % (AUTO) 2 % (0-10); HEMATOCRIT 24 % (35-52); HEMOGLOBIN 7.4 g/dL (11.5-16.0); LYMPHOCYTES % (AUTO) 11 % (12-44); MEAN CORPUSCULAR HEMOGLOBIN 28 pg (25-34); MEAN CORPUSCULAR HGB CONC 31 g/dL (32-36); MEAN CORPUSCULAR VOLUME 89 fL (80-99); MEAN PLATELET VOLUME 10.7 fL (9.0-12.2); MONOCYTES # (AUTO) 0.5 10^3/uL (0.0-1.0); MONOCYTES % (AUTO) 6 % (0-12); NEUTROPHILS # (AUTO) 7.4 10^3/uL (1.8-7.8); NEUTROPHILS % (AUTO) 81 % (42-75); PLATELET COUNT 251 10^3/uL (130-400); WHITE BLOOD COUNT 9.2 10^3/uL (4.3-11.0)
[2022-06-21 06:02] LABS: ALBUMIN 2.6 GM/DL (3.2-4.5); POTASSIUM 5.1 MMOL/L (3.6-5.0)
[2022-06-21 06:03] LABS: CALCIUM 7.3 MG/DL (8.5-10.1)
[2022-06-21 06:05] LABS: TOTAL PROTEIN 5.4 GM/DL (6.4-8.2)
[2022-06-21 06:06] LABS: BILIRUBIN,TOTAL 0.4 MG/DL (0.1-1.0)
[2022-06-21 06:08] LABS: CREATININE SERUM 4.06 MG/DL (0.60-1.30)
[2022-06-21] MEDS: ENOXAPARIN INJECTION 30 MG/0.3 ML SYR SC SCH (06:29)
[2022-06-21] MEDS: inSUlin ASPART (NovoLOG) 1 UNIT/0.01 ML (CHARGE PER UNIT) SC SCH ×4 (06:30→20:11)
[2022-06-21] MEDS: inSUlin ASPART (NovoLOG) 1 UNIT/0.01 ML (CHARGE PER UNIT) SQ SCH ×3 (06:31→16:58)
[2022-06-21] MEDS: LEVOTHYROXINE 125 MCG (LEVOTHROID) TABLET PO SCH (06:34)
[2022-06-21] MEDS: BISACODYL 10 MG SUPP (DULCOLAX) PR SCH (09:00)
[2022-06-21] MEDS: ASPIRIN 81 MG CHEW (CHILDREN'S ASA) PO SCH (09:08)
[2022-06-21] MEDS: VENlafaxine 37.5 MG (EFFEXOR) TAB PO SCH ×3 (09:08→20:11)
[2022-06-21] MEDS: SENNA W/DOCUSATE (SENOKOT S) TABLET PO SCH ×2 (09:08→20:11)
[2022-06-21] MEDS: GABAPENTIN 300 MG (NEURONTIN) CAP PO SCH (09:08)
[2022-06-21] MEDS: DOCUSATE SODIUM 100 MG (COLACE) CAP PO SCH ×2 (09:08→20:11)
[2022-06-21] MEDS: SODIUM BICARBONATE 650 MG TABLET PO SCH ×3 (09:09→20:11)
[2022-06-21] MEDS: CLOPIDOGREL 75 MG (PLAVIX) TABLET PO SCH (09:09)
[2022-06-21] MEDS: LACTULOSE SYRUP 10GM/15ML (ENULOSE) 30ML UDC PO SCH ×3 (09:09→20:11)
--- NOTE | 2022-06-21 09:44 | Physical Therapy Daily Note ---
PT Daily Note-Current Subjective Patient agrees to PT. Mental Status Patient Orientation: Person, Time, Situation Attachments: Oxygen, Woody Catheter, IV Transfers SCALE: Activities may be completed with or without assistive devices. 3-Ibwgzpugva-lpbpqzr completes the activity by him/herself with no assistance from a helper. 5-Set-up or Clean-up Assistance-helper sets up or cleans up; patient completes activity. [place] assists only prior to or following the activity. 4-Supervision or Touching Assistance-helper provides verbal cues and/or touching/steadying and/or contact guard assistance as patient completes activity. Assistance may be provided throughout the activity or intermittently. 3-Partial/Moderate Assistance-helper does LESS THAN HALF the effort. [place] lifts, holds or supports trunk or limbs, but provides less than half the effort. 2-Substantial/Maximal Assistance-helper does MORE THAN HALF the effort. [place] lifts or holds trunk or limbs and provides more than half the effort. 6-Upmbqgsau-xsiqny does ALL the effort. Patient does none of the effort to complete the activity. Or, the assistance of 2 or more helpers is required for the patient to complete the activity. If activity was not attempted, code reason: 7-Patient Refused. 9-Not Applicable-not attempted and the patient did not perform the activity before the current illness, exacerbation or injury. 10-Not Attempted due to Environmental Limitations-(lack of equipment, weather restraints, etc.). 88-Not Attempted due to Medical Conditions or Safety Concerns. Lying to Sitting/Side of Bed(Q: 4 Sit to Stand (QC): 3 Chair/Amu-lj-Nlncq Xfer(QC): 3 Weight Bearing Right Lower Extremity: Right Full Weight Bearing Left Lower Extremity: Left Full Weight Bearing Gait Training Distance: 5' Gait Assistive Device: FWW CGA for safety Exercises Seated Therapy Exercises: Ankle pumps, Long arc quads, Hip flexion Seated Reps: 12 Assessment Patient continues to be fearful of falling, however, improved with gross motor skills. Patient is up in recliner with needs met. Patient c/o constipation. RN notified. PT Manager Fiber Goals Manager Fiber Goals PT Manager Fiber Goals Time Frame: Jul 03, 2022 Roll Left & Right (QC): 5 Sit to Lying (QC): 5 Lying-Sitting on Side/Bed(QC): 5 Sit to Stand (QC): 5 Chair/Cqh-uq-Etkhv Xfer(QC): 4 Toilet Transfer (QC): 4 Car Transfer (QC): 4 Does the Patient Walk: Yes Walk 10 feet (QC): 3 Walk 50ft with 2 Turns (QC): 3 Walk 150 ft (QC): 3 PT Plan Treatment/Plan Treatment Plan: Continue Plan of Care Treatment Plan: Bed Mobility, Education, Functional Activity Tasha, Functional Strength, Gait, Safety, Therapeutic Exercise, Transfers Treatment Duration: Jul 23, 2022 Frequency: 6 times per week Estimated Hrs Per Day: .25 hour per day Patient and/or Family Agrees t: Yes Time/GCodes Time In: 826 Time Out: 838 Total Billed Treatment Time: 12 Total Billed Treatment 1 visit FA 12 min SAVANA GIVENS PT Jun 21, 2022 09:44
--- NOTE | 2022-06-21 11:58 | Progress Note ---
Subjective Subjective/Events-last exam Patient states that she is feeling better. Continues to have ok UOP. Had a small BM this AM but still feels constipated. Tolerating PO diet. Review of Systems Pulmonary: Dyspnea (with exertion) Cardiovascular: No: Chest Pain, Palpitations Gastrointestinal: Abdominal Pain, Constipation Genitourinary: No Dysuria, No Frequency Neurological: Weakness, Incoordination Objective Exam Last Set of Vital Signs Vital Signs Date Time Temp Pulse Resp B/P (MAP) Pulse Ox O2 Delivery O2 Flow Rate FiO2 06/21/22 08:00 High Flow N/C 2.00 06/21/22 07:56 36.1 63 17 95/59 (71) 96 06/21/22 06:50 28 Capillary Refill : Less Than 3 Seconds I&O Intake and Output 06/21/22 00:00 Intake Total 520 ml Output Total 275 ml Balance 245 ml Intake Oral 520 ml Output Urine Total 275 ml General: Alert, Oriented X3, Mild Distress (with minimal activity) Lungs: Clear to Auscultation, Normal Air Movement Heart: Regular Rate, No Murmurs Abdomen: Soft, No Tenderness Extremities: Other (2+ pitting edema equal bilaterally) Neuro: Normal Speech Results/Procedures Lab Laboratory Tests 06/20/22 16:49: Glucometer 264H 06/20/22 20:47: Glucometer 284H 06/21/22 05:30: White Blood Count 9.2, Red Blood Count 2.65L, Hemoglobin 7.4L, Hematocrit 24L, Mean Corpuscular Volume 89, Mean Corpuscular Hemoglobin 28, Mean Corpuscular Hemoglobin Concent 31L, Red Cell Distribution Width 14.4, Platelet Count 251, Mean Platelet Volume 10.7, Immature Granulocyte % (Auto) 1, Neutrophils (%) (Auto) 81H, Lymphocytes (%) (Auto) 11L, Monocytes (%) (Auto) 6, Eosinophils (%) (Auto) 2, Basophils (%) (Auto) 0, Neutrophils # (Auto) 7.4, Lymphocytes # (Auto) 1.0, Monocytes # (Auto) 0.5, Eosinophils # (Auto) 0.2, Basophils # (Auto) 0.0, Immature Granulocyte # (Auto) 0.1, Sodium Level 136, Potassium Level 5.1H, Chloride Level 105, Carbon Dioxide Level 18L, Anion Gap 13, Blood Urea Nitrogen 62H, Creatinine 4.06#H, Estimat Glomerular Filtration Rate 11, BUN/Creatinine Ratio 15, Glucose Level 227H, Calcium Level 7.3L, Corrected Calcium 8.4L, Total Bilirubin 0.4, Aspartate Amino Transf (AST/SGOT) 18, Alanine Aminotransferase (ALT/SGPT) 15, Alkaline Phosphatase 239H, Total Protein 5.4L, Albumin 2.6L 06/21/22 05:38: Glucometer 201H 06/21/22 11:27: Glucometer 201H Microbiology 06/20/22 Urine Culture - Final, Complete NO GROWTH 06/17/22 Blood Culture - Preliminary, Resulted No growth Radiology NAME: RO TOLENTINO [facility] REC#: [id number] PT STATUS: REG ER : 1950 PHYSICIAN: SAE FAUST DO ADMIT DATE: 06/17/22/ER FS Signed Date of Exam:06/17/22 CHEST 1 VIEW AP/PA ONLY INDICATION: Shortness of breath Portable chest 12:38 PM Heart is mildly enlarged. Pulmonary vascularity is normal. Lungs are clear. IMPRESSION: Cardiomegaly without evidence of pulmonary venous hypertension. Dictated by: Dictated on workstation # [id number] Dict: 06/17/22 1248 Trans: 06/17/22 1550 [facility] [id number] Interpreted by: SARAH ISLAS MD Electronically signed by: SARAH ISLAS MD 06/17/22 1550 NAME: RO TOLENTINO [facility] REC#: [id number] PT STATUS: REG ER : 1950 PHYSICIAN: SAE FAUST DO ADMIT DATE: 06/17/22/ER FS Signed Date of Exam:06/17/22 CT HEAD/FACE/CERVICAL WO PROCEDURE: CT head, face, and cervical spine without contrast. TECHNIQUE: Multiple contiguous axial images were obtained through the head, neck, and facial bones without the use of intravenous contrast. Sagittal and coronal reformations through the cervical spine and facial bones were also performed. Auto Exposure Controls were utilized during the CT exam to meet ALARA standards for radiation dose reduction. INDICATION: Fall with head, face, and neck injury. Patient has swelling and bruising to the right eye. COMPARISON: Comparison is made with prior head CT from 12/03/2021. FINDINGS: CT HEAD: The ventricles and sulci are within normal limits. No sulcal effacement or midline shift is identified. No acute intra-axial or extra-axial hemorrhage is detected. Cisterns are patent. Visualized paranasal sinuses are clear. There does appear to be some soft tissue swelling over the right orbit. IMPRESSION: No acute intracranial process is detected. CT CERVICAL SPINE: There is some straightening of the normal cervical lordotic curvature. There is minimal retrolisthesis of C5 on C6. There is significant multilevel degenerative disc disease with variable disc space narrowing and marginal spurring. No fractures are identified. Prevertebral tissues are normal. Odontoid appears to be intact. There do appear to be pleural effusions bilaterally, greater on the right. IMPRESSION: 1. Cervical spondylosis. No acute bony abnormality detected. 2. Bilateral pleural effusions, right greater. CT FACE: The mandible appears intact. The zygomatic arches are intact. The maxillary sinus arnold are intact. No nasal bone fracture is seen. No definite orbital wall fracture is seen. There does appear to be some mild soft tissue swelling in the right periorbital region. The globes appear to be intact. The visualized paranasal sinuses are clear. Mastoids are well aerated. IMPRESSION: Right periorbital soft tissue swelling. No definite facial bone fracture is detected. Dictated by: Dictated on workstation # [id number] Dict: 06/17/22 1249 Trans: 06/17/22 1538 AS6 [id number] Interpreted by: LILIAM MANNING MD Electronically signed by: LILIAM MANNING MD 06/17/22 1538 NAME: RO TOLENTINO [facility] REC#: [id number] PT STATUS: REG ER : 1950 PHYSICIAN: SAE FAUST DO ADMIT DATE: 06/17/22/ER FS Signed Date of Exam:06/17/22 LUMBAR SPINE 2 OR 3 VIEW INDICATION: Fall with low back pain. Time of Exam: 12:39 PM 3 views lumbar spine were obtained. Curvature and alignment is normal. Vertebral body heights are maintained. No acute compression fracture seen. There is generalized degenerative disc disease with variable disc space narrowing and marginal spurring. There is multilevel facet arthropathy. Aorta is partially calcified. IMPRESSION: Lumbar spondylosis. No acute bony abnormality is detected. Dictated by: Dictated on workstation # [id number] Dict: 06/17/22 1248 Trans: 06/17/22 1539 [facility]IC[facility] [id number] Interpreted by: LILIAM MANNING MD Electronically signed by: LILIAM MANNING MD 06/17/22 1539 NAME: RO TOLENTINO [facility] REC#: [id number] PT STATUS: REG ER : 1950 PHYSICIAN: SAE FAUST DO ADMIT DATE: 06/17/22/ER FS Signed Date of Exam:06/17/22 PELVIS (AP) Indication: Pelvic injury from a fall AP view pelvis shows no fracture or dislocation. IMPRESSION: Negative pelvis. Dictated by: Dictated on workstation # [id number] Dict: 06/17/22 1248 Trans: 06/17/22 1549 PATRICIA [id number] Interpreted by: SARAH ISLAS MD Electronically signed by: SARAH ISLAS MD 06/17/22 1549 Assessment/Plan Assessment/Plan (1) Cellulitis of left upper extremity Status: Acute Assessment & Plan: 06/21: Erythema almost resolved (2) UTI due to Klebsiella species Status: Acute Assessment & Plan: 06/21: Completed antibiotics for UTI (3) Acute on chronic renal failure Status: Acute Assessment & Plan: 06/21: Following with nephrology, may need transferred, will continue to monitor, holding ARBs Qualifiers: Qualified Codes: N17.9 - Acute kidney failure, unspecified; N18.9 - Chronic kidney disease, unspecified (4) Rhabdomyolysis Status: Acute Assessment & Plan: 06/21: likely contributing to ARF Qualifiers: Qualified Codes: T79.6XXA - Traumatic ischemia of muscle, initial encounter (5) Anemia Status: Chronic Assessment & Plan: 06/21: Large facial hematoma, no acute signs of bleeding Qualifiers: Qualified Codes: D64.9 - Anemia, unspecified (6) Constipation Status: Acute Assessment & Plan: 06/21: Miralax, laculose, senna Qualifiers: Qualified Codes: K59.00 - Constipation, unspecified (7) Diabetes mellitus with hyperglycemia, with long-term current use of insulin Status: Acute Qualifiers: Qualified Codes: E11.65 - Type 2 diabetes mellitus with hyperglycemia; Z79.4 - jail (current) use of insulin (8) Hypertension Status: Chronic Qualifiers: Qualified Codes: I10 - Essential (primary) hypertension (9) Hyperlipidemia Status: Chronic Qualifiers: Qualified Codes: E78.5 - Hyperlipidemia, unspecified (10) Head injury Status: Acute Qualifiers: Qualified Codes: S09.90XA - Unspecified injury of head, initial encounter (11) Hyperkalemia Status: Acute Assessment & Plan: 06/21: S/p Kexalate (12) Frequent falls Status: Acute (13) Physical debility Assessment & Plan: 06/21: Recommend d/c to SNF ODILON SOSA MD Jun 21, 2022 11:58
--- NOTE | 2022-06-21 13:02 | Cardiology Progress Note ---
Subjective Date Seen by Provider: Jun 21, 2022 Time Seen by Provider: 13:00 Subjective/Events-last exam Patient was seen at bedside, sitting comfortably, having swelling in her arm. Review of Systems General: No Chills, No Night Sweats; Fatigue, Malaise; No Appetite, No Other HEENT: No Head Aches, No Visual Changes, No Eye Pain, No Ear Pain, No Dysphasia, No Sinus Congestion, No Post Nasal Drip, No Sore Throat, No Other Pulmonary: Dyspnea; No Cough, No Pleuritic Chest Pain, No Other Cardiovascular: No: Chest Pain, Palpitations, Orthopnea, Paroxysmal Noc. Dyspnea, Edema, Lt Headedness, Other Objective-Cardiology Exam Last Set of Vital Signs Vital Signs 06/21/22 06/21/22 06:50 11:47 Temp 36.1 Pulse 55 Resp 18 B/P (MAP) 108/72 (84) Pulse Ox 93 O2 Delivery Nasal Cannula O2 Flow Rate 2.00 FiO2 28 I&O Intake and Output 06/20/22 23:59 Intake Total 520 ml Output Total 275 ml Balance 245 ml Intake Oral 520 ml Output Urine Total 275 ml General: Alert, Oriented X3, Mild Distress (with minimal activity) HEENT: Atraumatic Neck: Supple Lungs: Clear to Auscultation, Normal Air Movement Heart: Regular Rate, Normal S1, Normal S2, No Murmurs Abdomen: Soft, No Tenderness Extremities: No Clubbing, Other (2+ pitting edema equal bilaterally) Neuro: Normal Speech Results Lab Laboratory Tests 06/21/22 05:30 A/P-Cardiology Admission Diagnosis Coronary artery disease Hypertension Hyperlipidemia Cellulitis Assessment/Plan Ac renal failure and hyperkalemia, worsening - Dr Patel managing Sepsis and cellulitis of LUE - Dr Patel managing Bruising over and around R orbit Status post fall prior to admission. Continue to monitor Aortic stenosis-moderate, asymptomatic - 2D echo was done on April 19, [address] Flores showing moderate stenosis, ejection fraction 45 to 50%, severe pulmonary hypertension with PA pressure 65 to 70 mmHg Coronary artery disease - Underwent LHC on 04/20/[address] Flores after having abnormal stress test showing coronary artery disease primarily consisting of 70% mid vessel stenosis of the left anterior descending. This lesion was stented with Promus 3.0 x 18 mm stent with no significant residual stenosis. The rest of the coronary vessels do not exhibit significant obstructive disease. Mild impairment of global left ventricular systolic function with ejection fraction 45% to 50% Hypertension, monitor blood pressure, no changes HLP - statin tx DM - management per medical services. Hypothyroidism COPD - oxygen dependent H/O breast cancer with left mastectomy and residual LUE lymphedema Obesity Diabetic neuropathy Chronic peripheral edema BILL FLORES MD Jun 21, 2022 13:02
--- NOTE | 2022-06-21 13:55 | Occupational Ther Daily Note ---
OT Current Status-Daily Note Subjective Pt presents in recliner, eating lunch. She reports being done eating and would like to brush her teeth. Appearance Pt left sitting in chair, all needs within reach. Mental Status/Objective Patient Orientation: Person, Place, Time, Situation Attachments: Woody Catheter, IV, Telemetry ADL-Treatment Therapy Code Descriptions/Definitions Functional [place] Measure: 0=Not Assessed/NA 4=Minimal Assistance 1=Total Assistance 5=Supervision or Setup 2=Maximal Assistance 6=Modified [place] 3=Moderate Assistance 7=Complete IndependenceSCALE: Activities may be completed with or without assistive devices. 5-Okpjnxvlzt-tltssdf completes the activity by him/herself with no assistance from a helper. 5-Set-up or Clean-up Assistance-helper sets up or cleans up; patient completes activity. [place] assists only prior to or following the activity. 4-Supervision or Touching Assistance-helper provides verbal cues and/or touching/steadying and/or contact guard assistance as patient completes activity. Assistance may be provided throughout the activity or intermittently. 3-Partial/Moderate Assistance-helper does LESS THAN HALF the effort. [place] lifts, holds or supports trunk or limbs, but provides less than half the effort. 2-Substantial/Maximal Assistance-helper does MORE THAN HALF the effort. [place] lifts or holds trunk or limbs and provides more than half the effort. 8-Vlwtxcflr-ydatoj does ALL the effort. Patient does none of the effort to complete the activity. Or, the assistance of 2 or more helpers is required for the patient to complete the activity. If activity was not attempted, code reason: 7-Patient Refused. 9-Not Applicable-not attempted and the patient did not perform the activity before the current illness, exacerbation or injury. 10-Not Attempted due to Environmental Limitations-(lack of equipment, weather restraints, etc.). 88-Not Attempted due to Medical Conditions or Safety Concerns. Eating (QC): 5 Oral Hygiene (QC): 5 Post set-up pt was able to complete oral care and face washing. She remains seated throughout task. Education OT Patient Education: Progress toward Goal/Update tx plan, Purpose of tx/functional activities Teaching Recipient: Patient Teaching Methods: Discussion Response to Teaching: Verbalize Understanding, Return Demonstration OT Usp Goals Milking System Installer Goals Time Frame: Jun 25, 2022 Eating (QC): 5 (met) Oral Hygiene (QC): 5 (met) Upper Body Dressing (QC): 4 Complete HEP independently Additional Goals: 1-Demonstrate ADL Tasks, 2-Verbalize Understanding, 3- ImproveStrength/Tasha 1=Demonstrate adherence to instructed precautions during ADL tasks. 2=Patient will verbalize/demonstrate understanding of assistive devices/modifications for ADL. 3=Patient will improve strength/tolerance for activity to enable patient to perform ADL's. OT Education/Plan Problem List/Assessment Assessment: Decreased Activ Tolerance, Decreased UE Strength, Edema, Restricted Funct UE ROM Discharge Recommendations Plan/Recommendations: Continue POC Treatment Plan/Plan of Care Treatment,Training & Education: Yes Patient would benefit from OT for education, treatment and training to promote independence in ADL's, mobility, safety and/or upper extremity function for ADL's. Plan of Care: ADL Retraining, Caregiver Training, Cognitive Retraining, Functional Mobility, Group Exercise/Act as Ind, UE Funct Exercise/Act Treatment Duration: Jun 25, 2022 Frequency: 3 times per week (3-5x/week) Estimated Hrs Per Day: .25 hour per day Agreement: Yes Rehab Potential: Poor Time/GCodes Start Time: 13:24 Stop Time: 13:34 Total Time Billed (hr/min): 10 Billed Treatment Time 1 Visit ADL Maranda Howell OT Jun 21, 2022 13:55
[2022-06-21] MEDS: AtorvaSTATin TABLET 10 MG TABLET PO SCH (20:11)
[2022-06-21] MEDS: ACETAMINOPHEN 325 MG TABLET PO PRN (22:07)
[2022-06-22] VITALS (7 sets, daily range): BP systolic 103–139; BP diastolic 50–68
[2022-06-22] MEDS: NS IV 1000 ML 1,000 ML IV SCH (02:27)
[2022-06-22] MEDS: RT-ALBUTEROL SULF 2.5 MG/3 ML PRE-MIX VIAL IH PRN ×2 (05:48→16:35)
[2022-06-22 06:13] LABS: BASOPHILS # (AUTO) 0.1 10^3/uL (0.0-0.1); BASOPHILS % (AUTO) 1 % (0-10); EOSINOPHILS # (AUTO) 0.2 10^3/uL (0.0-0.3); EOSINOPHILS % (AUTO) 3 % (0-10); HEMATOCRIT 25 % (35-52); HEMOGLOBIN 7.6 g/dL (11.5-16.0); LYMPHOCYTES # (AUTO) 1.3 10^3/uL (1.0-4.0); LYMPHOCYTES % (AUTO) 17 % (12-44); MEAN CORPUSCULAR HEMOGLOBIN 27 pg (25-34); MEAN CORPUSCULAR HGB CONC 31 g/dL (32-36); MEAN CORPUSCULAR VOLUME 89 fL (80-99); MEAN PLATELET VOLUME 10.8 fL (9.0-12.2); MONOCYTES # (AUTO) 0.7 10^3/uL (0.0-1.0); MONOCYTES % (AUTO) 10 % (0-12); NEUTROPHILS % (AUTO) 68 % (42-75); PLATELET COUNT 266 10^3/uL (130-400); WHITE BLOOD COUNT 7.4 10^3/uL (4.3-11.0)
[2022-06-22 06:29] LABS: ALBUMIN 2.5 GM/DL (3.2-4.5)
[2022-06-22 06:30] LABS: POTASSIUM 4.7 MMOL/L (3.6-5.0)
[2022-06-22 06:31] LABS: CALCIUM 7.3 MG/DL (8.5-10.1)
[2022-06-22 06:32] LABS: TOTAL PROTEIN 5.3 GM/DL (6.4-8.2)
[2022-06-22 06:34] LABS: BILIRUBIN,TOTAL 0.5 MG/DL (0.1-1.0)
[2022-06-22 06:36] LABS: CREATININE SERUM 3.97 MG/DL (0.60-1.30)
[2022-06-22] MEDS: inSUlin ASPART (NovoLOG) 1 UNIT/0.01 ML (CHARGE PER UNIT) SQ SCH ×3 (06:50→16:50)
[2022-06-22] MEDS: inSUlin ASPART (NovoLOG) 1 UNIT/0.01 ML (CHARGE PER UNIT) SC SCH ×4 (06:50→20:29)
[2022-06-22] MEDS: LEVOTHYROXINE 125 MCG (LEVOTHROID) TABLET PO SCH (06:51)
[2022-06-22] MEDS: ENOXAPARIN INJECTION 30 MG/0.3 ML SYR SC SCH (06:51)
--- NOTE | 2022-06-22 07:30 | Cardiology Progress Note ---
Subjective Date Seen by Provider: Jun 22, 2022 Time Seen by Provider: 07:29 Subjective/Events-last exam Patient was seen at bedside, laying down comfortably, denied any chest pain. Review of Systems General: No Chills, No Night Sweats; Fatigue; No Malaise, No Appetite, No Other HEENT: No Head Aches, No Visual Changes, No Eye Pain, No Ear Pain, No Dysphasia, No Sinus Congestion, No Post Nasal Drip, No Sore Throat, No Other Pulmonary: No Dyspnea, No Cough, No Pleuritic Chest Pain, No Other Cardiovascular: No: Chest Pain, Palpitations, Orthopnea, Paroxysmal Noc. Dyspnea, Edema, Lt Headedness, Other Objective-Cardiology Exam Last Set of Vital Signs Vital Signs 06/21/22 06/22/22 06:50 07:23 Temp 36.0 Pulse 58 Resp 20 B/P (MAP) 118/63 (81) Pulse Ox 99 O2 Delivery High Flow N/C O2 Flow Rate 1.50 FiO2 28 I&O Intake and Output 06/22/22 00:00 Intake Total 2555 ml Output Total 550 ml Balance 2005 ml Intake Oral 1555 ml IV Total 1000 ml Output Urine Total 550 ml # Bowel Movements 4 General: Alert, Oriented X3, Mild Distress (with minimal activity) HEENT: Atraumatic Neck: Supple Lungs: Clear to Auscultation, Normal Air Movement Heart: Regular Rate, Normal S1, Normal S2, No Murmurs Abdomen: Soft, No Tenderness Extremities: No Clubbing, Other (Lymphedema of the left upper extremity) Skin: No Rashes, No Significant Lesion, Other (Lymphedema of the left upper extremity) Neuro: Normal Speech Results Lab Laboratory Tests 06/22/22 05:55 A/P-Cardiology Admission Diagnosis Coronary artery disease Hypertension Hyperlipidemia Cellulitis Assessment/Plan Ac renal failure and hyperkalemia Renal function are starting to improve slowly Continue to monitor, followed and managed by Dr. Perry Sepsis and cellulitis of LUE No further erythema or swelling, has chronic lymphedema of the left upper extremity Continue to monitor Bruising over and around R orbit Status post fall prior to admission. Continue to monitor Aortic stenosis-moderate, asymptomatic - 2D echo was done on April 19, [address] Flores showing moderate stenosis, ejection fraction 45 to 50%, severe pulmonary hypertension with PA pressure 65 to 70 mmHg Coronary artery disease - Underwent LHC on 04/20/[address] Flores after having abnormal stress test showing coronary artery disease primarily consisting of 70% mid vessel stenosis of the left anterior descending. This lesion was stented with Promus 3.0 x 18 mm stent with no significant residual stenosis. The rest of the coronary vessels do not exhibit significant obstructive disease. Mild impairment of global left ventricular systolic function with ejection fraction 45% to 50% Hypertension, monitor blood pressure, no changes HLP - statin tx DM - management per medical services. Hypothyroidism COPD - oxygen dependent H/O breast cancer with left mastectomy and residual LUE lymphedema Obesity Diabetic neuropathy Chronic peripheral edema BILL FLORES MD Jun 22, 2022 07:30
[2022-06-22] MEDS: CLOPIDOGREL 75 MG (PLAVIX) TABLET PO SCH (08:52)
[2022-06-22] MEDS: SODIUM BICARBONATE 650 MG TABLET PO SCH ×3 (08:52→20:26)
[2022-06-22] MEDS: ASPIRIN 81 MG CHEW (CHILDREN'S ASA) PO SCH (08:52)
[2022-06-22] MEDS: VENlafaxine 37.5 MG (EFFEXOR) TAB PO SCH ×3 (08:52→20:26)
[2022-06-22] MEDS: LACTULOSE SYRUP 10GM/15ML (ENULOSE) 30ML UDC PO SCH (08:53)
[2022-06-22] MEDS: SENNA W/DOCUSATE (SENOKOT S) TABLET PO SCH ×2 (08:53→20:30)
[2022-06-22] MEDS: DOCUSATE SODIUM 100 MG (COLACE) CAP PO SCH ×2 (08:53→20:30)
[2022-06-22] MEDS: BISACODYL 10 MG SUPP (DULCOLAX) PR SCH (08:53)
[2022-06-22] MEDS: RT-ALBUTEROL/IPRATROPIUM 3 ML (DUONEB) VIAL IH SCH ×2 (09:03→19:27)
--- NOTE | 2022-06-22 09:43 | Physical Therapy Daily Note ---
PT Daily Note-Current Subjective Patient agrees to PT. Mental Status Patient Orientation: Normal For Age Attachments: Oxygen, Woody Catheter, IV Transfers SCALE: Activities may be completed with or without assistive devices. 7-Nizhdxqghm-dozasvq completes the activity by him/herself with no assistance from a helper. 5-Set-up or Clean-up Assistance-helper sets up or cleans up; patient completes activity. [place] assists only prior to or following the activity. 4-Supervision or Touching Assistance-helper provides verbal cues and/or touching/steadying and/or contact guard assistance as patient completes activity. Assistance may be provided throughout the activity or intermittently. 3-Partial/Moderate Assistance-helper does LESS THAN HALF the effort. [place] lifts, holds or supports trunk or limbs, but provides less than half the effort. 2-Substantial/Maximal Assistance-helper does MORE THAN HALF the effort. [place] lifts or holds trunk or limbs and provides more than half the effort. 8-Vshnkzmnk-tfszbj does ALL the effort. Patient does none of the effort to complete the activity. Or, the assistance of 2 or more helpers is required for the patient to complete the activity. If activity was not attempted, code reason: 7-Patient Refused. 9-Not Applicable-not attempted and the patient did not perform the activity before the current illness, exacerbation or injury. 10-Not Attempted due to Environmental Limitations-(lack of equipment, weather restraints, etc.). 88-Not Attempted due to Medical Conditions or Safety Concerns. Lying to Sitting/Side of Bed(Q: 2 Sit to Stand (QC): 3 Chair/Fvz-en-Idpje Xfer(QC): 3 Weight Bearing Right Lower Extremity: Right Full Weight Bearing Left Lower Extremity: Left Full Weight Bearing Gait Training Distance: 10' x 2 Walk 10 feet (QC): 4 Gait Assistive Device: FWW slow, shuffle gait sequence Exercises Seated Therapy Exercises: Ankle pumps, Long arc quads Seated Reps: 15 Assessment Patient up in recliner with needs met. Improved mobility on this date. PT Therapist Physical Goals Senior Living Goals PT Therapist Physical Goals Time Frame: Jul 03, 2022 Roll Left & Right (QC): 5 Sit to Lying (QC): 5 Lying-Sitting on Side/Bed(QC): 5 Sit to Stand (QC): 5 Chair/Mkn-iw-Pelvg Xfer(QC): 4 Toilet Transfer (QC): 4 Car Transfer (QC): 4 Does the Patient Walk: Yes Walk 10 feet (QC): 3 Walk 50ft with 2 Turns (QC): 3 Walk 150 ft (QC): 3 PT Plan Treatment/Plan Treatment Plan: Continue Plan of Care Treatment Plan: Bed Mobility, Education, Functional Activity Tasha, Functional Strength, Gait, Safety, Therapeutic Exercise, Transfers Treatment Duration: Jul 23, 2022 Frequency: 6 times per week Estimated Hrs Per Day: .25 hour per day Patient and/or Family Agrees t: Yes Time/GCodes Time In: 825 Time Out: 835 Total Billed Treatment Time: 10 Total Billed Treatment 1 visit FA 10 min SAVANA GIVENS PT Jun 22, 2022 09:43
[2022-06-22] MEDS ORDERED: FUROSEMIDE 40 MG/4 ML INJ (LASIX) IVP NR (12:45)
--- NOTE | 2022-06-22 14:30 | Occupational Ther Daily Note ---
OT Current Status-Daily Note Subjective Pt in recliner, agreeable to OT tx. Mental Status/Objective Attachments: Oxygen ADL-Treatment Therapy Code Descriptions/Definitions Functional [place] Measure: 0=Not Assessed/NA 4=Minimal Assistance 1=Total Assistance 5=Supervision or Setup 2=Maximal Assistance 6=Modified [place] 3=Moderate Assistance 7=Complete IndependenceSCALE: Activities may be completed with or without assistive devices. 1-Wgakflxuaw-wowbedx completes the activity by him/herself with no assistance from a helper. 5-Set-up or Clean-up Assistance-helper sets up or cleans up; patient completes activity. [place] assists only prior to or following the activity. 4-Supervision or Touching Assistance-helper provides verbal cues and/or touching/steadying and/or contact guard assistance as patient completes activity. Assistance may be provided throughout the activity or intermittently. 3-Partial/Moderate Assistance-helper does LESS THAN HALF the effort. [place] lifts, holds or supports trunk or limbs, but provides less than half the effort. 2-Substantial/Maximal Assistance-helper does MORE THAN HALF the effort. [place] lifts or holds trunk or limbs and provides more than half the effort. 9-Ritexzbgu-ctrmrh does ALL the effort. Patient does none of the effort to complete the activity. Or, the assistance of 2 or more helpers is required for the patient to complete the activity. If activity was not attempted, code reason: 7-Patient Refused. 9-Not Applicable-not attempted and the patient did not perform the activity before the current illness, exacerbation or injury. 10-Not Attempted due to Environmental Limitations-(lack of equipment, weather restraints, etc.). 88-Not Attempted due to Medical Conditions or Safety Concerns. Oral Hygiene (QC): 5 Shower/Bathe Self (QC): 3 (assist b/l lower legs/feet.) Other Treatment Pt up in recliner, states she just got back to the chair from showering. She indicates she required assistance with washing below the knee, but otherwise she was able to wash everything. Pt completed oral care, hair brushing and face washing with set up assist. Post tx, pt in recliner, call light in reach and all needs met. Education OT Patient Education: Correct positioning, Modified ADL techniques, Progress toward Goal/Update tx plan, Purpose of tx/functional activities, Rehab process Teaching Recipient: Patient Teaching Methods: Discussion Response to Teaching: Verbalize Understanding OT Laboratory Secretary Goals Laboratory Secretary Goals Time Frame: Jun 25, 2022 Eating (QC): 5 (met) Oral Hygiene (QC): 5 (met) Upper Body Dressing (QC): 4 Complete HEP independently Additional Goals: 1-Demonstrate ADL Tasks, 2-Verbalize Understanding, 3- ImproveStrength/Tasha 1=Demonstrate adherence to instructed precautions during ADL tasks. 2=Patient will verbalize/demonstrate understanding of assistive devices/modifications for ADL. 3=Patient will improve strength/tolerance for activity to enable patient to perform ADL's. OT Education/Plan Problem List/Assessment Assessment: Decreased Activ Tolerance, Decreased UE Strength, Impaired Funct Balance, Impaired I ADL's, Impaired Self-Care Skills, Restricted Funct UE ROM Discharge Recommendations Plan/Recommendations: Continue POC Treatment Plan/Plan of Care Patient would benefit from OT for education, treatment and training to promote independence in ADL's, mobility, safety and/or upper extremity function for ADL's. Plan of Care: ADL Retraining, Caregiver Training, Cognitive Retraining, Functional Mobility, Group Exercise/Act as Ind, UE Funct Exercise/Act Treatment Duration: Jun 25, 2022 Frequency: 3 times per week (3-5x/week) Estimated Hrs Per Day: .25 hour per day Agreement: Yes Rehab Potential: Poor Time/GCodes Start Time: 13:45 Stop Time: 13:55 Total Time Billed (hr/min): 10 Billed Treatment Time 1, ADL ANA M SANDOVAL OT Jun 22, 2022 14:30
[2022-06-22] MEDS: AtorvaSTATin TABLET 10 MG TABLET PO SCH (20:26)
--- NOTE | 2022-06-22 20:43 | Progress Note ---
Subjective Subjective/Events-last exam Patient states that she is feeling better this AM. Tolerating PO diet. She can get to bed to chair but has been able to ambulate further then that with PT. BM this AM. Review of Systems Pulmonary: Dyspnea Cardiovascular: No: Chest Pain, Palpitations Musculoskeletal: other (LLE swelling) Neurological: Weakness, Incoordination; No: Confusion Objective Exam Last Set of Vital Signs Vital Signs Date Time Temp Pulse Resp B/P (MAP) Pulse Ox O2 Delivery O2 Flow Rate FiO2 06/22/22 19:52 36.7 63 20 139/68 (91) 100 High Flow N/C 2.00 06/21/22 06:50 28 Capillary Refill : Less Than 3 Seconds I&O Intake and Output 06/22/22 00:00 Intake Total 2555 ml Output Total 550 ml Balance 2005 ml Intake Oral 1555 ml IV Total 1000 ml Output Urine Total 550 ml # Bowel Movements 4 General: Alert, Oriented X3, Moderate Distress (with any activity) Lungs: Normal Air Movement, Other (crackles at the bases bilaterally) Heart: Regular Rate, No Murmurs Abdomen: Soft Extremities: Other (LUE lymphedema, 3+ pitting edema bilateral LE) Neuro: Normal Speech Results/Procedures Lab Laboratory Tests 06/22/22 05:52: Glucometer 183H 06/22/22 05:55: White Blood Count 7.4, Red Blood Count 2.79L, Hemoglobin 7.6L, Hematocrit 25L, Mean Corpuscular Volume 89, Mean Corpuscular Hemoglobin 27, Mean Corpuscular Hemoglobin Concent 31L, Red Cell Distribution Width 14.4, Platelet Count 266, Mean Platelet Volume 10.8, Immature Granulocyte % (Auto) 1, Neutrophils (%) (Auto) 68, Lymphocytes (%) (Auto) 17, Monocytes (%) (Auto) 10, Eosinophils (%) (Auto) 3, Basophils (%) (Auto) 1, Neutrophils # (Auto) 5.0, Lymphocytes # (Auto) 1.3, Monocytes # (Auto) 0.7, Eosinophils # (Auto) 0.2, Basophils # (Auto) 0.1, Immature Granulocyte # (Auto) 0.1, Sodium Level 137, Potassium Level 4.7, Chloride Level 106, Carbon Dioxide Level 19L, Anion Gap 12, Blood Urea Nitrogen 64H, Creatinine 3.97H, Estimat Glomerular Filtration Rate 12, BUN/Creatinine Ratio 16, Glucose Level 182H, Calcium Level 7.3L, Corrected Calcium 8.5, Total Bilirubin 0.5, Aspartate Amino Transf (AST/SGOT) 30, Alanine Aminotransferase (ALT/SGPT) 22, Alkaline Phosphatase 276H, Total Protein 5.3L, Albumin 2.5L 06/22/22 10:24: Glucometer 158H 06/22/22 11:52: 06/22/22 15:23: Glucometer 201H 06/22/22 20:08: Glucometer 227H Microbiology 06/20/22 Urine Culture - Final, Complete NO GROWTH 06/17/22 Blood Culture - Final, Complete No growth Radiology NAME: FREEMAN TOLENTINOKIE Audi [facility] REC#: [id number] PT STATUS: REG ER : 1950 PHYSICIAN: SAE FAUST DO ADMIT DATE: 06/17/22/ER FS Signed Date of Exam:06/17/22 CHEST 1 VIEW AP/PA ONLY INDICATION: Shortness of breath Portable chest 12:38 PM Heart is mildly enlarged. Pulmonary vascularity is normal. Lungs are clear. IMPRESSION: Cardiomegaly without evidence of pulmonary venous hypertension. Dictated by: Dictated on workstation # [id number] Dict: 06/17/22 1248 Trans: 06/17/22 1550 [facility] [id number] Interpreted by: SARAH ISLAS MD Electronically signed by: SARAH ISLAS MD 06/17/22 1550 NAME: RO TOLENTINO [facility] REC#: [id number] PT STATUS: REG ER : 1950 PHYSICIAN: SAE FAUST DO ADMIT DATE: 06/17/22/ER FS Signed Date of Exam:06/17/22 CT HEAD/FACE/CERVICAL WO PROCEDURE: CT head, face, and cervical spine without contrast. TECHNIQUE: Multiple contiguous axial images were obtained through the head, neck, and facial bones without the use of intravenous contrast. Sagittal and coronal reformations through the cervical spine and facial bones were also performed. Auto Exposure Controls were utilized during the CT exam to meet ALARA standards for radiation dose reduction. INDICATION: Fall with head, face, and neck injury. Patient has swelling and bruising to the right eye. COMPARISON: Comparison is made with prior head CT from 12/03/2021. FINDINGS: CT HEAD: The ventricles and sulci are within normal limits. No sulcal effacement or midline shift is identified. No acute intra-axial or extra-axial hemorrhage is detected. Cisterns are patent. Visualized paranasal sinuses are clear. There does appear to be some soft tissue swelling over the right orbit. IMPRESSION: No acute intracranial process is detected. CT CERVICAL SPINE: There is some straightening of the normal cervical lordotic curvature. There is minimal retrolisthesis of C5 on C6. There is significant multilevel degenerative disc disease with variable disc space narrowing and marginal spurring. No fractures are identified. Prevertebral tissues are normal. Odontoid appears to be intact. There do appear to be pleural effusions bilaterally, greater on the right. IMPRESSION: 1. Cervical spondylosis. No acute bony abnormality detected. 2. Bilateral pleural effusions, right greater. CT FACE: The mandible appears intact. The zygomatic arches are intact. The maxillary sinus arnold are intact. No nasal bone fracture is seen. No definite orbital wall fracture is seen. There does appear to be some mild soft tissue swelling in the right periorbital region. The globes appear to be intact. The visualized paranasal sinuses are clear. Mastoids are well aerated. IMPRESSION: Right periorbital soft tissue swelling. No definite facial bone fracture is detected. Dictated by: Dictated on workstation # [id number] Dict: 06/17/22 1249 Trans: 06/17/22 1538 [id number] [id number] Interpreted by: LILIAM MANNING MD Electronically signed by: LILIAM MANNING MD 06/17/22 1538 NAME: RO TOLENTINO [facility] REC#: [id number] PT STATUS: REG ER : 1950 PHYSICIAN: SAE FAUST DO ADMIT DATE: 06/17/22/ER FS Signed Date of Exam:06/17/22 LUMBAR SPINE 2 OR 3 VIEW INDICATION: Fall with low back pain. Time of Exam: 12:39 PM 3 views lumbar spine were obtained. Curvature and alignment is normal. Vertebral body heights are maintained. No acute compression fracture seen. There is generalized degenerative disc disease with variable disc space narrowing and marginal spurring. There is multilevel facet arthropathy. Aorta is partially calcified. IMPRESSION: Lumbar spondylosis. No acute bony abnormality is detected. Dictated by: Dictated on workstation # [id number] Dict: 06/17/22 1248 Trans: 06/17/22 1539 [facility] [id number] Interpreted by: LILIAM MANNING MD Electronically signed by: LILIAM MANNING MD 06/17/22 1539 NAME: RO TOLENTINO [facility] REC#: [id number] PT STATUS: REG ER : 1950 PHYSICIAN: SAE FAUST DO ADMIT DATE: 06/17/22/ER FS Signed Date of Exam:06/17/22 PELVIS (AP) Indication: Pelvic injury from a fall AP view pelvis shows no fracture or dislocation. IMPRESSION: Negative pelvis. Dictated by: Dictated on workstation # [id number] Dict: 06/17/22 1248 Trans: 06/17/22 1549 PATRICIA [id number] Interpreted by: SARAH ISLAS MD Electronically signed by: SARAH ISLAS MD 06/17/22 1549 Assessment/Plan Assessment/Plan (1) Cellulitis of left upper extremity Status: Acute Assessment & Plan: 06/21: Erythema almost resolved 06/22: LISETH wrap to LUE due to chronic lymphedema, encouraged patient to get new sleeve ordered from DME (2) Acute on chronic renal failure Status: Acute Assessment & Plan: 06/21: Following with nephrology, may need transferred, will continue to monitor, holding ARBs 06/22: Cr trending down this AM, stopped IVFs because patient is showing some signs of fluid overload, Lasix 20 mg x 1 dose given today, Continue to monitor UOP Qualifiers: Qualified Codes: N17.9 - Acute kidney failure, unspecified; N18.9 - Chronic kidney disease, unspecified (3) UTI due to Klebsiella species Status: Acute Assessment & Plan: 06/21: Completed antibiotics for UTI (4) Rhabdomyolysis Status: Acute Assessment & Plan: 06/21: likely contributing to ARF Qualifiers: Qualified Codes: T79.6XXA - Traumatic ischemia of muscle, initial encounter (5) Anemia Status: Chronic Assessment & Plan: 06/21: Large facial hematoma and right chest and back, no acute signs of bleeding 06/22: Iron panel pending Qualifiers: Qualified Codes: D64.9 - Anemia, unspecified (6) Constipation Status: Acute Assessment & Plan: 06/21: Miralax, laculose, senna Qualifiers: Qualified Codes: K59.00 - Constipation, unspecified (7) Diabetes mellitus with hyperglycemia, with long-term current use of insulin Status: Acute Qualifiers: Qualified Codes: E11.65 - Type 2 diabetes mellitus with hyperglycemia; 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 (8) Hypertension Status: Chronic Qualifiers: Qualified Codes: I10 - Essential (primary) hypertension (9) Hyperlipidemia Status: Chronic Qualifiers: Qualified Codes: E78.5 - Hyperlipidemia, unspecified (10) Head injury Status: Acute Qualifiers: Qualified Codes: S09.90XA - Unspecified injury of head, initial encounter (11) Hyperkalemia Status: Resolved Assessment & Plan: 06/21: S/p Kexalate (12) Frequent falls Status: Acute (13) Physical debility Assessment & Plan: 06/21: Recommend d/c to SNF 06/22: Spoke with patient and son this AM and patient is more on board to SNF placement, SW notified ODILON SOSA MD Jun 22, 2022 20:43
[2022-06-23 00:53] VITALS: BP 166/70
[2022-06-23 04:00] VITALS: BP 149/67
[2022-06-23] MEDS: inSUlin ASPART (NovoLOG) 1 UNIT/0.01 ML (CHARGE PER UNIT) SC SCH ×4 (05:48→20:58)
[2022-06-23] MEDS: ENOXAPARIN INJECTION 30 MG/0.3 ML SYR SC SCH (05:54)
[2022-06-23] MEDS: inSUlin ASPART (NovoLOG) 1 UNIT/0.01 ML (CHARGE PER UNIT) SQ SCH ×3 (05:54→16:53)
[2022-06-23] MEDS: LEVOTHYROXINE 125 MCG (LEVOTHROID) TABLET PO SCH (05:54)
[2022-06-23 06:03] LABS: BASOPHILS # (AUTO) 0.1 10^3/uL (0.0-0.1); BASOPHILS % (AUTO) 1 % (0-10); EOSINOPHILS # (AUTO) 0.3 10^3/uL (0.0-0.3); EOSINOPHILS % (AUTO) 3 % (0-10); HEMATOCRIT 27 % (35-52); HEMOGLOBIN 8.5 g/dL (11.5-16.0); LYMPHOCYTES # (AUTO) 1.3 10^3/uL (1.0-4.0); LYMPHOCYTES % (AUTO) 16 % (12-44); MEAN CORPUSCULAR HEMOGLOBIN 27 pg (25-34); MEAN CORPUSCULAR HGB CONC 31 g/dL (32-36); MEAN CORPUSCULAR VOLUME 88 fL (80-99); MEAN PLATELET VOLUME 10.6 fL (9.0-12.2); MONOCYTES # (AUTO) 0.8 10^3/uL (0.0-1.0); MONOCYTES % (AUTO) 10 % (0-12); NEUTROPHILS # (AUTO) 5.6 10^3/uL (1.8-7.8); NEUTROPHILS % (AUTO) 69 % (42-75); PLATELET COUNT 315 10^3/uL (130-400)
[2022-06-23 06:15] LABS: ALBUMIN 2.7 GM/DL (3.2-4.5); POTASSIUM 4.8 MMOL/L (3.6-5.0)
[2022-06-23 06:16] LABS: CALCIUM 7.8 MG/DL (8.5-10.1)
[2022-06-23 06:18] LABS: TOTAL PROTEIN 5.7 GM/DL (6.4-8.2)
[2022-06-23 06:19] LABS: BILIRUBIN,TOTAL 0.5 MG/DL (0.1-1.0)
[2022-06-23 06:21] LABS: CREATININE SERUM 3.63 MG/DL (0.60-1.30)
[2022-06-23] MEDS: RT-ALBUTEROL/IPRATROPIUM 3 ML (DUONEB) VIAL IH SCH ×2 (07:39→19:33)
[2022-06-23 08:19] VITALS: BP 148/76
[2022-06-23] MEDS: BISACODYL 10 MG SUPP (DULCOLAX) PR SCH (08:43)
[2022-06-23] MEDS: CLOPIDOGREL 75 MG (PLAVIX) TABLET PO SCH (08:43)
[2022-06-23] MEDS: DOCUSATE SODIUM 100 MG (COLACE) CAP PO SCH ×2 (08:43→20:57)
[2022-06-23] MEDS: SODIUM BICARBONATE 650 MG TABLET PO SCH ×3 (08:43→20:57)
[2022-06-23] MEDS: ASPIRIN 81 MG CHEW (CHILDREN'S ASA) PO SCH (08:43)
[2022-06-23] MEDS: VENlafaxine 37.5 MG (EFFEXOR) TAB PO SCH ×3 (08:43→20:57)
[2022-06-23] MEDS: SENNA W/DOCUSATE (SENOKOT S) TABLET PO SCH ×2 (08:43→20:57)
[2022-06-23] MEDS ORDERED: IRON SUCROSE 200 MG/10 ML (VENOFER) VIAL IV NR (09:00)
--- NOTE | 2022-06-23 09:22 | Cardiology Progress Note ---
Subjective Date Seen by Provider: Jun 23, 2022 Time Seen by Provider: 08:25 Subjective/Events-last exam Patient is sitting up in bed, eating breakfast. Denies any chest pain or dypsnea Objective-Cardiology Exam Last Set of Vital Signs Vital Signs 06/21/22 06/23/22 06:50 16:22 Temp 36.4 Pulse 64 Resp 23 B/P (MAP) 183/75 (111) Pulse Ox 100 O2 Delivery High Flow N/C O2 Flow Rate 2.00 FiO2 28 I&O Intake and Output 06/23/22 00:00 Intake Total 1910 ml Output Total 800 ml Balance 1110 ml Intake Oral 910 ml IV Total 1000 ml Output Urine Total 800 ml # Voids 1 General: Alert, Oriented X3, Moderate Distress (with any activity) HEENT: Atraumatic Neck: Supple Lungs: Normal Air Movement, Other (crackles at the bases bilaterally) Heart: Regular Rate, No Murmurs Abdomen: Soft Extremities: Other (LUE lymphedema, 3+ pitting edema bilateral LE) Skin: No Rashes, No Significant Lesion, Other (Lymphedema of the left upper extremity) Neuro: Normal Speech Results Lab Laboratory Tests 06/23/22 05:40 A/P-Cardiology Admission Diagnosis Coronary artery disease Hypertension Hyperlipidemia Cellulitis Assessment/Plan Ac renal failure and hyperkalemia Renal function are starting to improve slowly Continue to monitor, followed and managed by Dr. Perry Sepsis and cellulitis of LUE No further erythema or swelling, has chronic lymphedema of the left upper extremity Continue to monitor Bruising over and around R orbit Status post fall prior to admission. Continue to monitor Aortic stenosis-moderate, asymptomatic 2D echo was done on April 19, 2022 showing moderate stenosis, ejection fraction 45 to 50%, severe pulmonary hypertension with PA pressure 65 to 70 mmHg Coronary artery disease Underwent LHC on 04/20/22 after having abnormal stress test showing coronary artery disease primarily consisting of 70% mid vessel stenosis of the left anterior descending. This lesion was stented with Promus 3.0 x 18 mm stent with no significant residual stenosis. The rest of the coronary vessels do not exhibit significant obstructive disease. Mild impairment of global left ventricular systolic function with ejection fraction 45% to 50% Maintained on ASA and Plavix Hypertension, monitor blood pressure, no changes HLP statin tx DM management per medical services. Hypothyroidism COPD oxygen dependent H/O breast cancer with left mastectomy and residual LUE lymphedema Obesity Diabetic neuropathy Chronic peripheral edema Supervisory-Addendum Brief Supervisory Addendum Participated in pt care: history, MDM, physical Personally performed: exam, history, MDM Care discussed with: MONIK Results interpretation: Verified all documentation Notes: Patient was seen and evaluated with Tiffany, examination performed, management plan was discussed, agree with the current scribed note, I made few changes to the note using Italic font Patient was seen at bedside, laying down comfortably, no new complaint. Feeling better. Continue current medication Monitor blood pressure TIFFANY BEAN Jun 23, 2022 09:22 BILL HAMPTON MD Jun 23, 2022 16:50
--- NOTE | 2022-06-23 10:39 | Physical Therapy Daily Note ---
PT Daily Note-Current Subjective Patient in bed pre tx, agrees to PT, has no complaints of pain other than her normal bilateral knee arthritis pain. Appearance Patient in recliner post tx with nurse call, phone, tray, all needs met. Mental Status Patient Orientation: Person, Place, Situation Attachments: Oxygen, Woody Catheter Transfers SCALE: Activities may be completed with or without assistive devices. 2-Alundnhofq-svnqsiu completes the activity by him/herself with no assistance from a helper. 5-Set-up or Clean-up Assistance-helper sets up or cleans up; patient completes activity. [place] assists only prior to or following the activity. 4-Supervision or Touching Assistance-helper provides verbal cues and/or touching/steadying and/or contact guard assistance as patient completes activity. Assistance may be provided throughout the activity or intermittently. 3-Partial/Moderate Assistance-helper does LESS THAN HALF the effort. [place] lifts, holds or supports trunk or limbs, but provides less than half the effort. 2-Substantial/Maximal Assistance-helper does MORE THAN HALF the effort. [place] lifts or holds trunk or limbs and provides more than half the effort. 5-Mhdyewyxy-hlezkw does ALL the effort. Patient does none of the effort to complete the activity. Or, the assistance of 2 or more helpers is required for the patient to complete the activity. If activity was not attempted, code reason: 7-Patient Refused. 9-Not Applicable-not attempted and the patient did not perform the activity before the current illness, exacerbation or injury. 10-Not Attempted due to Environmental Limitations-(lack of equipment, weather restraints, etc.). 88-Not Attempted due to Medical Conditions or Safety Concerns. Roll Left & Right (QC): 3 Lying to Sitting/Side of Bed(Q: 3 Sit to Stand (QC): 4 Chair/Kjo-zy-Dwidg Xfer(QC): 4 min assist for supine to sit, CGA for sit to stand. Patient doesn't think she can ambulate much this morning, chair is placed closer to the bed. Weight Bearing Right Lower Extremity: Right Full Weight Bearing Left Lower Extremity: Left Full Weight Bearing Gait Training Distance: 5' Gait Persons Needed: 1 Gait Assistive Device: FWW Slumped posture, patient has a lot of difficulty turning to sit in chair but eventually turns completely and sits safely. Exercises Seated Therapy Exercises: Ankle pumps, Long arc quads Seated Reps: 20 Treatments bed mobility and transfers, ambulation, LE ROM Assessment Current Status: Poor Progress more difficulty with ambulation today PT Dump Attendant Goals Correction Goals PT Correction Goals Time Frame: Jul 03, 2022 Roll Left & Right (QC): 5 Sit to Lying (QC): 5 Lying-Sitting on Side/Bed(QC): 5 Sit to Stand (QC): 5 Chair/Hrl-el-Gkygo Xfer(QC): 4 Toilet Transfer (QC): 4 Car Transfer (QC): 4 Does the Patient Walk: Yes Walk 10 feet (QC): 3 Walk 50ft with 2 Turns (QC): 3 Walk 150 ft (QC): 3 PT Plan Problem List Problem List: Activity Tolerance, Functional Strength, Safety, Balance, Gait, Transfer, Bed Mobility, ROM Treatment/Plan Treatment Plan: Continue Plan of Care Treatment Plan: Bed Mobility, Education, Functional Activity Tasha, Functional Strength, Gait, Safety, Therapeutic Exercise, Transfers Treatment Duration: Jul 23, 2022 Frequency: 6 times per week Estimated Hrs Per Day: .25 hour per day Patient and/or Family Agrees t: Yes Safety Risks/Education Patient Education: Gait Training, Transfer Techniques, Correct Positioning, Safety Issues Teaching Recipient: Patient Teaching Methods: Demonstration, Discussion Response to Teaching: Reinforcement Needed Time/GCodes Time In: 1010 Time Out: 1021 Total Billed Treatment Time: 11 Total Billed Treatment 1 visit FA 11' JOHN ANGULO PT Jun 23, 2022 10:38
--- NOTE | 2022-06-23 10:59 | Occupational Ther Daily Note ---
OT Current Status-Daily Note Subjective Pt was in recliner watching tv upon arrival. Pt reported that she just had her L arm wrapped to help with the edema, she stated she thinks that it is helping. She stated she had clothes but did not want to change into them. She agreed to UE exercises. Appearance Pt was left seated in recliner upon departure. All needs were in reach. Mental Status/Objective Patient Orientation: Person, Place, Time, Situation Attachments: IV, Oxygen ADL-Treatment Therapy Code Descriptions/Definitions Functional [place] Measure: 0=Not Assessed/NA 4=Minimal Assistance 1=Total Assistance 5=Supervision or Setup 2=Maximal Assistance 6=Modified [place] 3=Moderate Assistance 7=Complete IndependenceSCALE: Activities may be completed with or without assistive devices. 9-Gujlsmwath-ihrnlgz completes the activity by him/herself with no assistance from a helper. 5-Set-up or Clean-up Assistance-helper sets up or cleans up; patient completes activity. [place] assists only prior to or following the activity. 4-Supervision or Touching Assistance-helper provides verbal cues and/or touching/steadying and/or contact guard assistance as patient completes activity. Assistance may be provided throughout the activity or intermittently. 3-Partial/Moderate Assistance-helper does LESS THAN HALF the effort. [place] lifts, holds or supports trunk or limbs, but provides less than half the effort. 2-Substantial/Maximal Assistance-helper does MORE THAN HALF the effort. [place] lifts or holds trunk or limbs and provides more than half the effort. 8-Funujtzno-itgfop does ALL the effort. Patient does none of the effort to complete the activity. Or, the assistance of 2 or more helpers is required for the patient to complete the activity. If activity was not attempted, code reason: 7-Patient Refused. 9-Not Applicable-not attempted and the patient did not perform the activity before the current illness, exacerbation or injury. 10-Not Attempted due to Environmental Limitations-(lack of equipment, weather restraints, etc.). 88-Not Attempted due to Medical Conditions or Safety Concerns. Upper Body Dressing (QC): 7 Other Treatment Pt completed 1 set of 10 reps of UE exercises. She completed shoulder flexion, elbow flexion/extension, wrist flexion/extension, and finger flexion/extension. She appeared to have full AROM in her R arm and was able to lift L arm less than half way. She completed what she could actively with her L arm but was unable to match, thus needed AAROM. Pt fatigues quickly, but was able to complete all reps in set. Education OT Patient Education: Exercise program, Home exercise program Teaching Recipient: Patient Teaching Methods: Demonstration, Discussion Response to Teaching: Verbalize Understanding, Return Demonstration, Reinforcement Needed OT Assistant Professor Of Chemistry Goals Nursing Home Goals Time Frame: Jun 25, 2022 Eating (QC): 5 (met) Oral Hygiene (QC): 5 (met) Upper Body Dressing (QC): 4 Complete HEP independently Additional Goals: 1-Demonstrate ADL Tasks, 2-Verbalize Understanding, 3- ImproveStrength/Tasha 1=Demonstrate adherence to instructed precautions during ADL tasks. 2=Patient will verbalize/demonstrate understanding of assistive dev ices/modifications for ADL. 3=Patient will improve strength/tolerance for activity to enable patient to perform ADL's. OT Education/Plan Problem List/Assessment Assessment: Decreased Activ Tolerance, Decreased UE Strength, Edema, Impaired I ADL's, Impaired Self-Care Skills, Restricted Funct UE ROM Discharge Recommendations Plan/Recommendations: Discharge/Goals Met Therapy Discharge Recommendati: Other, See Comments (Pt could benefit from lymphedema therapy referral ), Home & Family Comment Pt at baseline for adls Treatment Plan/Plan of Care Treatment,Training & Education: Yes Patient would benefit from OT for education, treatment and training to promote independence in ADL's, mobility, safety and/or upper extremity function for A DL's. Plan of Care: ADL Retraining, Caregiver Training, Cognitive Retraining, Functional Mobility, Group Exercise/Act as Ind, UE Funct Exercise/Act Treatment Duration: Jun 25, 2022 Frequency: 3 times per week (3-5x/week) Estimated Hrs Per Day: .25 hour per day Agreement: Yes Rehab Potential: Poor Time/GCodes Start Time: 10:40 Stop Time: 10:50 Total Time Billed (hr/min): 10 Billed Treatment Time 1 visit EX 1 Maranda Howell OT Jun 23, 2022 10:59
[2022-06-23 11:58] VITALS: BP 167/73
[2022-06-23] MEDS: NYSTATIN ORAL SUSP 5 ML UDC PO SCH ×2 (15:37→20:57)
[2022-06-23 16:22] VITALS: BP 183/75
[2022-06-23] MEDS ORDERED: FUROSEMIDE 40 MG/4 ML INJ (LASIX) IVP NR (17:00)
--- NOTE | 2022-06-23 20:32 | Progress Note ---
Subjective Subjective/Events-last exam Patient feeling good today. States that she is still having shortness of breath with any activity. Tolerating PO diet. Review of Systems General: Fatigue Pulmonary: Dyspnea, Cough Cardiovascular: Edema; No: Chest Pain, Palpitations Gastrointestinal: No: Nausea, Vomiting, Abdominal Pain, Diarrhea, Constipation Neurological: Weakness, Incoordination; No: Confusion Objective Exam Last Set of Vital Signs Vital Signs Date Time Temp Pulse Resp B/P (MAP) Pulse Ox O2 Delivery O2 Flow Rate FiO2 06/23/22 19:35 92 High Flow N/C 2.00 06/23/22 16:22 36.4 64 23 183/75 (111) 06/21/22 06:50 28 Capillary Refill : Less Than 3 Seconds I&O Intake and Output 06/23/22 00:00 Intake Total 1910 ml Output Total 800 ml Balance 1110 ml Intake Oral 910 ml IV Total 1000 ml Output Urine Total 800 ml # Voids 1 General: Alert, Oriented X3, Mild Distress (with minimal activity) Lungs: Other (Diminished breath sounds at the bases with some crackles, no wheezing) Heart: Regular Rate, No Murmurs Abdomen: Normal Bowel Sounds, Soft, No Tenderness, No Masses Extremities: Other (3+ pitting edema equal bilaterally) Neuro: Normal Speech, Cranial Nerves 3-12 NL Results/Procedures Lab Laboratory Tests 06/23/22 05:38: Glucometer 156H 06/23/22 05:40: White Blood Count 8.0, Red Blood Count 3.12L, Hemoglobin 8.5L, Hematocrit 27L, Mean Corpuscular Volume 88, Mean Corpuscular Hemoglobin 27, Mean Corpuscular Hemoglobin Concent 31L, Red Cell Distribution Width 14.5, Platelet Count 315, Mean Platelet Volume 10.6, Immature Granulocyte % (Auto) 2, Neutrophils (%) (Auto) 69, Lymphocytes (%) (Auto) 16, Monocytes (%) (Auto) 10, Eosinophils (%) (Auto) 3, Basophils (%) (Auto) 1, Neutrophils # (Auto) 5.6, Lymphocytes # (Auto) 1.3, Monocytes # (Auto) 0.8, Eosinophils # (Auto) 0.3, Basophils # (Auto) 0.1, Immature Granulocyte # (Auto) 0.1, Sodium Level 138, Potassium Level 4.8, Chloride Level 105, Carbon Dioxide Level 21, Anion Gap 12, Blood Urea Nitrogen 64H, Creatinine 3.63H, Estimat Glomerular Filtration Rate 13, BUN/Creatinine Ratio 18, Glucose Level 168H, Calcium Level 7.8L, Corrected Calcium 8.8, Total Bilirubin 0.5, Aspartate Amino Transf (AST/SGOT) 22, Alanine Aminotransferase (ALT/SGPT) 23, Alkaline Phosphatase 315H, Total Protein 5.7L, Albumin 2.7L 06/23/22 11:27: Glucometer 186H 06/23/22 15:18: Glucometer 207H Microbiology 06/20/22 Urine Culture - Final, Complete NO GROWTH 06/17/22 Blood Culture - Final, Complete No growth Radiology NAME: FREEMAN TOLENTINOKILeon Huntley [facility] REC#: [id number] PT STATUS: REG ER : 1950 PHYSICIAN: SAE FAUST DO ADMIT DATE: 06/17/22/ER FS Signed Date of Exam:06/17/22 CHEST 1 VIEW AP/PA ONLY INDICATION: Shortness of breath Portable chest 12:38 PM Heart is mildly enlarged. Pulmonary vascularity is normal. Lungs are clear. IMPRESSION: Cardiomegaly without evidence of pulmonary venous hypertension. Dictated by: Dictated on workstation # [id number] Dict: 06/17/22 1248 Trans: 06/17/22 1550 [facility] [id number] Interpreted by: SARAH ISLAS MD Electronically signed by: SARAH ISLAS MD 06/17/22 1550 NAME: [facility]OLENTINORO [facility] REC#: [id number] PT STATUS: REG ER : 1950 PHYSICIAN: SAE FAUST DO ADMIT DATE: 06/17/22/ER FS Signed Date of Exam:06/17/22 CT HEAD/FACE/CERVICAL WO PROCEDURE: CT head, face, and cervical spine without contrast. TECHNIQUE: Multiple contiguous axial images were obtained through the head, neck, and facial bones without the use of intravenous contrast. Sagittal and coronal reformations through the cervical spine and facial bones were also performed. Auto Exposure Controls were utilized during the CT exam to meet ALARA standards for radiation dose reduction. INDICATION: Fall with head, face, and neck injury. Patient has swelling and bruising to the right eye. COMPARISON: Comparison is made with prior head CT from 12/03/2021. FINDINGS: CT HEAD: The ventricles and sulci are within normal limits. No sulcal effacement or midline shift is identified. No acute intra-axial or extra-axial hemorrhage is detected. Cisterns are patent. Visualized paranasal sinuses are clear. There does appear to be some soft tissue swelling over the right orbit. IMPRESSION: No acute intracranial process is detected. CT CERVICAL SPINE: There is some straightening of the normal cervical lordotic curvature. There is minimal retrolisthesis of C5 on C6. There is significant multilevel degenerative disc disease with variable disc space narrowing and marginal spurring. No fractures are identified. Prevertebral tissues are normal. Odontoid appears to be intact. There do appear to be pleural effusions bilaterally, greater on the right. IMPRESSION: 1. Cervical spondylosis. No acute bony abnormality detected. 2. Bilateral pleural effusions, right greater. CT FACE: The mandible appears intact. The zygomatic arches are intact. The maxillary sinus arnold are intact. No nasal bone fracture is seen. No definite orbital wall fracture is seen. There does appear to be some mild soft tissue swelling in the right periorbital region. The globes appear to be intact. The visualized paranasal sinuses are clear. Mastoids are well aerated. IMPRESSION: Right periorbital soft tissue swelling. No definite facial bone fracture is detected. Dictated by: Dictated on workstation # [id number] Dict: 06/17/22 1249 Trans: 06/17/22 1538 [id number] Interpreted by: LILIAM MANNING MD Electronically signed by: LILIAM MANNING MD 06/17/22 1538 NAME: RO TOLENTINO Audi [facility] REC#: [id number] PT STATUS: REG ER : 1950 PHYSICIAN: SAE FAUST DO ADMIT DATE: 06/17/22/ER FS Signed Date of Exam:06/17/22 LUMBAR SPINE 2 OR 3 VIEW INDICATION: Fall with low back pain. Time of Exam: 12:39 PM 3 views lumbar spine were obtained. Curvature and alignment is normal. Vertebral body heights are maintained. No acute compression fracture seen. There is generalized degenerative disc disease with variable disc space narrowing and marginal spurring. There is multilevel facet arthropathy. Aorta is partially calcified. IMPRESSION: Lumbar spondylosis. No acute bony abnormality is detected. Dictated by: Dictated on workstation # [id number] Dict: 06/17/22 1248 Trans: 06/17/22 1539 [facility] [id number] Interpreted by: LILIAM MANNING MD Electronically signed by: LILIAM MANNING MD 06/17/22 1539 NAME: RO TOLENTINO [facility] REC#: [id number] PT STATUS: REG ER : 1950 PHYSICIAN: SAE FAUST DO ADMIT DATE: 06/17/22/ER FS Signed Date of Exam:06/17/22 PELVIS (AP) Indication: Pelvic injury from a fall AP view pelvis shows no fracture or dislocation. IMPRESSION: Negative pelvis. Dictated by: Dictated on workstation # [id number] Dict: 06/17/22 1248 Trans: 06/17/22 1549 [facility] [id number] Interpreted by: SARAH ISLAS MD Electronically signed by: SARAH ISLAS MD 06/17/22 1549 Assessment/Plan Assessment/Plan (1) Cellulitis of left upper extremity Status: Acute Assessment & Plan: 06/21: Erythema almost resolved 06/22: LISETH wrap to LUE due to chronic lymphedema, encouraged patient to get new sleeve ordered from DME 06/23: Looking much better LISETH wrap (2) Acute on chronic renal failure Status: Acute Assessment & Plan: 06/21: Following with nephrology, may need transferred, will continue to monitor, holding ARBs 06/22: Cr trending down this AM, stopped IVFs because patient is showing some signs of fluid overload, Lasix 20 mg x 1 dose given today, Continue to monitor UOP 06/23: Lasix 20 mg x1 given today, Good UOP after dose yesterday Qualifiers: Qualified Codes: N17.9 - Acute kidney failure, unspecified; N18.9 - Chronic kidney disease, unspecified (3) UTI due to Klebsiella species Status: Acute Assessment & Plan: 06/21: Completed antibiotics for UTI (4) Rhabdomyolysis Status: Acute Assessment & Plan: 06/21: likely contributing to ARF Qualifiers: Qualified Codes: T79.6XXA - Traumatic ischemia of muscle, initial encounter (5) Anemia Status: Chronic Assessment & Plan: 06/21: Large facial hematoma and right chest and back, no acute signs of bleeding 06/22: Iron panel pending 06/23: Fe def, dose of venofer given today, repeat on Tuesday Qualifiers: Qualified Codes: D64.9 - Anemia, unspecified (6) Constipation Status: Acute Assessment & Plan: 06/21: Miralax, laculose, senna Qualifiers: Qualified Codes: K59.00 - Constipation, unspecified (7) Diabetes mellitus with hyperglycemia, with long-term current use of insulin Status: Resolved Qualifiers: Qualified Codes: E11.65 - Type 2 diabetes mellitus with hyperglycemia; 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 (8) Hypertension Status: Chronic Qualifiers: Qualified Codes: I10 - Essential (primary) hypertension (9) Hyperlipidemia Status: Chronic Qualifiers: Qualified Codes: E78.5 - Hyperlipidemia, unspecified (10) Head injury Status: Acute Qualifiers: Qualified Codes: S09.90XA - Unspecified injury of head, initial encounter (11) Hyperkalemia Status: Resolved Assessment & Plan: 06/21: S/p Kexalate (12) Frequent falls Status: Acute (13) Physical debility Assessment & Plan: 06/21: Recommend d/c to SNF 06/22: Spoke with patient and son this AM and patient is more on board to SNF placement, SW notified 06/23: SNF placement planned for tuesday, will repeat labs next week in SNF ODILON SOSA MD Jun 23, 2022 20:32
[2022-06-23 20:49] VITALS: BP 174/85
[2022-06-24 00:09] VITALS: BP 163/77
[2022-06-24] MEDS: inSUlin ASPART (NovoLOG) 1 UNIT/0.01 ML (CHARGE PER UNIT) SC SCH ×4 (06:11→20:06)
[2022-06-24] MEDS: ENOXAPARIN INJECTION 30 MG/0.3 ML SYR SC SCH (06:59)
[2022-06-24] MEDS: inSUlin ASPART (NovoLOG) 1 UNIT/0.01 ML (CHARGE PER UNIT) SQ SCH ×3 (07:00→17:01)
[2022-06-24] MEDS: LEVOTHYROXINE 125 MCG (LEVOTHROID) TABLET PO SCH (07:00)
[2022-06-24 07:06] LABS: BASOPHILS # (AUTO) 0.1 10^3/uL (0.0-0.1); BASOPHILS % (AUTO) 1 % (0-10); EOSINOPHILS # (AUTO) 0.3 10^3/uL (0.0-0.3); EOSINOPHILS % (AUTO) 4 % (0-10); HEMATOCRIT 26 % (35-52); HEMOGLOBIN 8.1 g/dL (11.5-16.0); LYMPHOCYTES # (AUTO) 1.2 10^3/uL (1.0-4.0); LYMPHOCYTES % (AUTO) 16 % (12-44); MEAN CORPUSCULAR HEMOGLOBIN 28 pg (25-34); MEAN CORPUSCULAR HGB CONC 32 g/dL (32-36); MEAN CORPUSCULAR VOLUME 88 fL (80-99); MEAN PLATELET VOLUME 10.3 fL (9.0-12.2); MONOCYTES # (AUTO) 0.9 10^3/uL (0.0-1.0); MONOCYTES % (AUTO) 11 % (0-12); NEUTROPHILS # (AUTO) 5.2 10^3/uL (1.8-7.8); NEUTROPHILS % (AUTO) 66 % (42-75); PLATELET COUNT 338 10^3/uL (130-400); WHITE BLOOD COUNT 7.8 10^3/uL (4.3-11.0)
[2022-06-24 07:16] LABS: ALBUMIN 2.7 GM/DL (3.2-4.5)
[2022-06-24 07:17] LABS: CALCIUM 8.2 MG/DL (8.5-10.1)
[2022-06-24 07:18] LABS: TOTAL PROTEIN 5.7 GM/DL (6.4-8.2)
[2022-06-24 07:20] LABS: BILIRUBIN,TOTAL 0.4 MG/DL (0.1-1.0)
[2022-06-24 07:22] LABS: CREATININE SERUM 3.08 MG/DL (0.60-1.30)
[2022-06-24] MEDS: RT-ALBUTEROL/IPRATROPIUM 3 ML (DUONEB) VIAL IH SCH ×2 (07:48→21:13)
[2022-06-24 07:59] VITALS: BP 171/75
--- NOTE | 2022-06-24 08:06 | Cardiology Progress Note ---
Subjective Date Seen by Provider: Jun 24, 2022 Time Seen by Provider: 08:05 Subjective/Events-last exam Patient is laying down in bed, eating breakfast Feeling better. No new complaint Review of Systems General: No Chills, No Night Sweats, No Fatigue, No Malaise, No Appetite, No Other HEENT: No Head Aches, No Visual Changes, No Eye Pain, No Ear Pain, No Dysphasia, No Sinus Congestion, No Post Nasal Drip, No Sore Throat, No Other Pulmonary: No Dyspnea, No Cough, No Pleuritic Chest Pain, No Other Cardiovascular: No: Chest Pain, Palpitations, Orthopnea, Paroxysmal Noc. Dyspnea, Edema, Lt Headedness, Other Objective-Cardiology Exam Last Set of Vital Signs Vital Signs 06/21/22 06/24/22 06:50 07:59 Temp 36.0 Pulse 61 Resp 20 B/P (MAP) 171/75 (107) Pulse Ox 95 O2 Delivery High Flow N/C O2 Flow Rate 2.00 FiO2 28 I&O Intake and Output 06/24/22 00:00 Intake Total 2010 ml Output Total 1900 ml Balance 110 ml Intake Oral 2010 ml Output Urine Total 1900 ml General: Alert, Oriented X3, Mild Distress (with minimal activity) HEENT: Atraumatic Neck: Supple Lungs: Other (Diminished breath sounds at the bases with some crackles, no wheezing) Heart: Regular Rate, Normal S1, Normal S2, No Murmurs Abdomen: Normal Bowel Sounds, Soft, No Tenderness, No Masses Extremities: Other (3+ pitting edema equal bilaterally) Skin: No Rashes, No Significant Lesion, Other (Lymphedema of the left upper extremity) Neuro: Normal Speech, Cranial Nerves 3-12 NL Psych/Mental Status: Mental Status NL, Mood NL Results Lab Laboratory Tests 06/24/22 06:45 A/P-Cardiology Admission Diagnosis Coronary artery disease Hypertension Hyperlipidemia Cellulitis Assessment/Plan Ac renal failure and hyperkalemia Renal function are continuing to improve Continue to monitor, followed and managed by Dr. Perry Sepsis and cellulitis of [facility] No further erythema or swelling, has chronic lymphedema of the left upper extremity Continue to monitor Bruising over and around R orbit Status post fall prior to admission. Continue to monitor Aortic stenosis-moderate, asymptomatic 2D echo was done on April 19, 2022 showing moderate stenosis, ejection fraction 45 to 50%, severe pulmonary hypertension with PA pressure 65 to 70 mmHg Coronary artery disease Underwent LHC on 04/20/22 after having abnormal stress test showing coronary artery disease primarily consisting of 70% mid vessel stenosis of the left anterior descending. This lesion was stented with Promus 3.0 x 18 mm stent with no significant residual stenosis. The rest of the coronary vessels do not exhibit significant obstructive disease. Mild impairment of global left ventricular systolic function with ejection fraction 45% to 50% Maintained on ASA and Plavix Hypertension, monitor blood pressure, no changes HLP statin tx DM management per medical services. Hypothyroidism COPD oxygen dependent H/O breast cancer with left mastectomy and residual LUE lymphedema Obesity Diabetic neuropathy Chronic peripheral edema BILL HAMPTON MD Jun 24, 2022 08:06
[2022-06-24] MEDS: BISACODYL 10 MG SUPP (DULCOLAX) PR SCH (09:05)
[2022-06-24] MEDS: VENlafaxine 37.5 MG (EFFEXOR) TAB PO SCH ×3 (09:14→20:15)
[2022-06-24] MEDS: ASPIRIN 81 MG CHEW (CHILDREN'S ASA) PO SCH (09:14)
[2022-06-24] MEDS: NYSTATIN ORAL SUSP 5 ML UDC PO SCH ×4 (09:14→20:12)
[2022-06-24] MEDS: SENNA W/DOCUSATE (SENOKOT S) TABLET PO SCH ×2 (09:14→20:08)
[2022-06-24] MEDS: CLOPIDOGREL 75 MG (PLAVIX) TABLET PO SCH (09:14)
[2022-06-24] MEDS: SODIUM BICARBONATE 650 MG TABLET PO SCH ×3 (09:14→20:09)
[2022-06-24] MEDS: DOCUSATE SODIUM 100 MG (COLACE) CAP PO SCH ×2 (09:14→20:09)
[2022-06-24 09:15] VITALS: BP 136/50
--- NOTE | 2022-06-24 11:03 | Physical Therapy Daily Note ---
PT Daily Note-Current Subjective Patient states, "I need to get out of this bed." Agrees to PT. Mental Status Patient Orientation: Normal For Age Attachments: Oxygen, Woody Catheter Transfers SCALE: Activities may be completed with or without assistive devices. 5-Jmfjqlpvdf-vudrcrz completes the activity by him/herself with no assistance from a helper. 5-Set-up or Clean-up Assistance-helper sets up or cleans up; patient completes activity. [place] assists only prior to or following the activity. 4-Supervision or Touching Assistance-helper provides verbal cues and/or touching/steadying and/or contact guard assistance as patient completes activity. Assistance may be provided throughout the activity or intermittently. 3-Partial/Moderate Assistance-helper does LESS THAN HALF the effort. [place] lifts, holds or supports trunk or limbs, but provides less than half the effort. 2-Substantial/Maximal Assistance-helper does MORE THAN HALF the effort. [place] lifts or holds trunk or limbs and provides more than half the effort. 0-Anyflabna-exbmsb does ALL the effort. Patient does none of the effort to complete the activity. Or, the assistance of 2 or more helpers is required for the patient to complete the activity. If activity was not attempted, code reason: 7-Patient Refused. 9-Not Applicable-not attempted and the patient did not perform the activity before the current illness, exacerbation or injury. 10-Not Attempted due to Environmental Limitations-(lack of equipment, weather restraints, etc.). 88-Not Attempted due to Medical Conditions or Safety Concerns. Lying to Sitting/Side of Bed(Q: 4 Sit to Stand (QC): 4 Chair/Ppq-wf-Lkitp Xfer(QC): 4 Weight Bearing Right Lower Extremity: Right Full Weight Bearing Left Lower Extremity: Left Full Weight Bearing Gait Training Distance: 10' Walk 10 feet (QC): 4 Gait Assistive Device: FWW WBOS/shuffle gait sequence Exercises Seated Therapy Exercises: Ankle pumps, Long arc quads, Hip flexion Seated Reps: 15 Assessment Patient displays increase SOA with c/o on this date. RN notified. Patient is up in recliner with needs met. Increase activity as tolerated by patient. PT Printing Manager Goals Care Home Goals PT Care Home Goals Time Frame: Jul 03, 2022 Roll Left & Right (QC): 5 Sit to Lying (QC): 5 Lying-Sitting on Side/Bed(QC): 5 Sit to Stand (QC): 5 Chair/Wxk-ol-Qvhcj Xfer(QC): 4 Toilet Transfer (QC): 4 Car Transfer (QC): 4 Does the Patient Walk: Yes Walk 10 feet (QC): 3 Walk 50ft with 2 Turns (QC): 3 Walk 150 ft (QC): 3 PT Plan Treatment/Plan Treatment Plan: Continue Plan of Care Treatment Plan: Bed Mobility, Education, Functional Activity Tasha, Functional Strength, Gait, Safety, Therapeutic Exercise, Transfers Treatment Duration: Jul 23, 2022 Frequency: 6 times per week Estimated Hrs Per Day: .25 hour per day Patient and/or Family Agrees t: Yes Time/GCodes Time In: 1036 Time Out: 1049 Total Billed Treatment Time: 13 Total Billed Treatment 1 visit FA 13 min SAVANA GIVENS PT Jun 24, 2022 11:03
--- NOTE | 2022-06-24 11:46 | Physician Query Clarification ---
Physician Query-General Query to Physician: Clinical Validation Clarification Dr Jose De Jesus Sepsis has been documented in the medical record. After study, has Sepsis been ruled out? If it has been ruled out, please document Sepsis ruled out" in the progress notes and/or discharge summary. 1. Yes/Agree, Sepsis ruled out/is not clinically valid 2. No/disagree, Sepsis has not been ruled out/is clinically valid* *Please document the clinical evidence supportive of this diagnosis (even if now resolved) in the Progress Notes and Discharge Summary Other, with explanation of the clinical findings Clinically undetermined, no explanation for the clinical findings Additional information: In the setting of Cellulitis and UTI, Admission VS/Labs: HR 82, RR 20, BP 136/55, Sp02 90% 2L 02, T 36.7, WBC 15.7, Lactic acid 1.84, Treatment in ER: levofloxacin IV, vancomycin IV, normal saline 1 L In responding to this query, please exercise your independent professional judgment. The purpose of this communication is to more accurately reflect the complexity of your patients condition. The fact that a question is asked does not imply that any particular answer is desired or expected. Thank you for your timely response to this clarification. Salud Gan MSN, RN Clinical Rug Clipper PHYSICIAN RESPONSE: Based on the clinical findings in the record, please respond to the query above on this document as an addendum. Physician Response: Physician Response Patient did not have sepsis If you have questions please contact: Director Geothermal Operations: Ext: Thank you for your time and cooperation. Clinical Rug Clipper/Director Geothermal Operations This is a permanent part of the medical record SALUD GAN Jun 24, 2022 11:46 ODILON DE JESUS MD Jun 25, 2022 10:56
[2022-06-24 15:54] VITALS: BP 178/75
[2022-06-24 18:24] VITALS: BP 178/75
[2022-06-24] MEDS: ZOLPIDEM 5 MG (AMBIEN) TAB PO PRN (20:12)
--- NOTE | 2022-06-24 20:24 | Progress Note ---
Subjective Subjective/Events-last exam Patient states that she is feeling very good. She is tolerating PO diet and getting to chair from bed. Low exercise tolerance. Review of Systems Pulmonary: Dyspnea Cardiovascular: No: Chest Pain, Palpitations Gastrointestinal: No: Nausea, Vomiting, Abdominal Pain Neurological: Weakness, Incoordination Objective Exam Last Set of Vital Signs Vital Signs Date Time Temp Pulse Resp B/P (MAP) Pulse Ox O2 Delivery O2 Flow Rate FiO2 06/24/22 18:24 35.9 65 99 06/24/22 15:54 17 178/75 (109) High Flow N/C 2.00 06/21/22 06:50 28 Capillary Refill : Less Than 3 Seconds I&O Intake and Output 06/24/22 00:00 Intake Total 2009 ml Output Total 1900 ml Balance 110 ml Intake Oral 2009 ml Output Urine Total 1900 ml General: Alert, Oriented X3, Mild Distress (with minimal activity) HEENT: Other (yellow and purple brusing present on right face) Lungs: Other (diminished breath sounds at the bases, normal work of breathing at the bases) Heart: Regular Rate, No Murmurs Abdomen: Normal Bowel Sounds, Soft, No Tenderness, No Masses Extremities: Other (2+ pitting edema) Neuro: Normal Speech Results/Procedures Lab Laboratory Tests 06/23/22 20:48: Glucometer 202H 06/24/22 06:45: White Blood Count 7.8, Red Blood Count 2.92L, Hemoglobin 8.1L, Hematocrit 26L, Mean Corpuscular Volume 88, Mean Corpuscular Hemoglobin 28, Mean Corpuscular Hemoglobin Concent 32, Red Cell Distribution Width 14.6H, Platelet Count 338, Mean Platelet Volume 10.3, Immature Granulocyte % (Auto) 2, Neutrophils (%) (Auto) 66, Lymphocytes (%) (Auto) 16, Monocytes (%) (Auto) 11, Eosinophils (%) (Auto) 4, Basophils (%) (Auto) 1, Neutrophils # (Auto) 5.2, Lymphocytes # (Auto) 1.2, Monocytes # (Auto) 0.9, Eosinophils # (Auto) 0.3, Basophils # (Auto) 0.1, Immature Granulocyte # (Auto) 0.2H, Sodium Level 138, Potassium Level 5.0, Chloride Level 106, Carbon Dioxide Level 23, Anion Gap 9, Blood Urea Nitrogen 61H, Creatinine 3.08#H, Estimat Glomerular Filtration Rate 16, BUN/Creatinine Ratio 20, Glucose Level 119H, Calcium Level 8.2L, Corrected Calcium 9.2, Total Bilirubin 0.4, Aspartate Amino Transf (AST/SGOT) 23, Alanine Aminotransferase (ALT/SGPT) 21, Alkaline Phosphatase 305H, Total Protein 5.7L, Albumin 2.7L 06/24/22 11:15: Glucometer 135H 06/24/22 15:40: Glucometer 145H 06/24/22 20:02: Glucometer 160H Microbiology 06/20/22 Urine Culture - Final, Complete NO GROWTH 06/17/22 Blood Culture - Final, Complete No growth Radiology NAME: RO TOLENTINO [facility] REC#: [id number] PT STATUS: REG ER : 1950 PHYSICIAN: SAE FAUST DO ADMIT DATE: 06/17/22/ER FS Signed Date of Exam:06/17/22 CHEST 1 VIEW AP/PA ONLY INDICATION: Shortness of breath Portable chest 12:38 PM Heart is mildly enlarged. Pulmonary vascularity is normal. Lungs are clear. IMPRESSION: Cardiomegaly without evidence of pulmonary venous hypertension. Dictated by: Dictated on workstation # [id number] Dict: 06/17/22 1248 Trans: 06/17/22 1550 [facility] [id number] Interpreted by: SARAH ISLAS MD Electronically signed by: SARAH ISLAS MD 06/17/22 6120 NAME: RO TOLENTINO [facility] REC#: [id number] PT STATUS: REG ER : 1950 PHYSICIAN: SAE FAUST DO ADMIT DATE: 06/17/22/ER FS Signed Date of Exam:06/17/22 CT HEAD/FACE/CERVICAL WO PROCEDURE: CT head, face, and cervical spine without contrast. TECHNIQUE: Multiple contiguous axial images were obtained through the head, neck, and facial bones without the use of intravenous contrast. Sagittal and coronal reformations through the cervical spine and facial bones were also performed. Auto Exposure Controls were utilized during the CT exam to meet ALARA standards for radiation dose reduction. INDICATION: Fall with head, face, and neck injury. Patient has swelling and bruising to the right eye. COMPARISON: Comparison is made with prior head CT from 12/03/2021. FINDINGS: CT HEAD: The ventricles and sulci are within normal limits. No sulcal effacement or midline shift is identified. No acute intra-axial or extra-axial hemorrhage is detected. Cisterns are patent. Visualized paranasal sinuses are clear. There does appear to be some soft tissue swelling over the right orbit. IMPRESSION: No acute intracranial process is detected. CT CERVICAL SPINE: There is some straightening of the normal cervical lordotic curvature. There is minimal retrolisthesis of C5 on C6. There is significant multilevel degenerative disc disease with variable disc space narrowing and marginal spurring. No fractures are identified. Prevertebral tissues are normal. Odontoid appears to be intact. There do appear to be pleural effusions bilaterally, greater on the right. IMPRESSION: 1. Cervical spondylosis. No acute bony abnormality detected. 2. Bilateral pleural effusions, right greater. CT FACE: The mandible appears intact. The zygomatic arches are intact. The maxillary sinus arnold are intact. No nasal bone fracture is seen. No definite orbital wall fracture is seen. There does appear to be some mild soft tissue swelling in the right periorbital region. The globes appear to be intact. The visualized paranasal sinuses are clear. Mastoids are well aerated. IMPRESSION: Right periorbital soft tissue swelling. No definite facial bone fracture is detected. Dictated by: Dictated on workstation # [id number] Dict: 06/17/22 1249 Trans: 06/17/22 1538 [id number] Interpreted by: LILIAM MANNING MD Electronically signed by: LILIAM MANNING MD 06/17/22 1538 NAME: RO TOLENTINO [facility] REC#: [id number] PT STATUS: REG ER : 1950 PHYSICIAN: SAE FAUST DO ADMIT DATE: 06/17/22/ER FS Signed Date of Exam:06/17/22 LUMBAR SPINE 2 OR 3 VIEW INDICATION: Fall with low back pain. Time of Exam: 12:39 PM 3 views lumbar spine were obtained. Curvature and alignment is normal. Vertebral body heights are maintained. No acute compression fracture seen. There is generalized degenerative disc disease with variable disc space narrowing and marginal spurring. There is multilevel facet arthropathy. Aorta is partially calcified. IMPRESSION: Lumbar spondylosis. No acute bony abnormality is detected. Dictated by: Dictated on workstation # [id number] Dict: 06/17/22 1248 Trans: 06/17/22 1539 [facility] [id number] Interpreted by: LILIAM MANNING MD Electronically signed by: LILIAM MANNING MD 06/17/22 1539 NAME: RO TOLENTINO [facility] REC#: [id number] PT STATUS: REG ER : 1950 PHYSICIAN: SAE FAUST DO ADMIT DATE: 06/17/22/ER FS Signed Date of Exam:06/17/22 PELVIS (AP) Indication: Pelvic injury from a fall AP view pelvis shows no fracture or dislocation. IMPRESSION: Negative pelvis. Dictated by: Dictated on workstation # [id number] Dict: 06/17/22 1248 Trans: 06/17/22 1549 [facility] [id number] Interpreted by: SARAH ISLAS MD Electronically signed by: SARAH ISLAS MD 06/17/22 1549 Assessment/Plan Assessment/Plan (1) Cellulitis of left upper extremity Status: Acute Assessment & Plan: 06/21: Erythema almost resolved 06/22: LISETH wrap to LUE due to chronic lymphedema, encouraged patient to get new sleeve ordered from DME 06/23: Looking much better LISETH wrap 06/24: Resolved, keep arm wrapped (2) Acute on chronic renal failure Status: Acute Assessment & Plan: 06/21: Following with nephrology, may need transferred, will continue to monitor, holding ARBs 06/22: Cr trending down this AM, stopped IVFs because patient is showing some signs of fluid overload, Lasix 20 mg x 1 dose given today, Continue to monitor UOP 06/23: Lasix 20 mg x1 given today, Good UOP after dose yesterday 06/24: Continues to improve, will plan on d/c to SNF tomorrow and repeat BMP next week Qualifiers: Qualified Codes: N17.9 - Acute kidney failure, unspecified; N18.9 - Chronic kidney disease, unspecified (3) UTI due to Klebsiella species Status: Acute Assessment & Plan: 06/21: Completed antibiotics for UTI (4) Rhabdomyolysis Status: Acute Assessment & Plan: 06/21: likely contributing to ARF Qualifiers: Qualified Codes: T79.6XXA - Traumatic ischemia of muscle, initial encounter (5) Anemia Status: Chronic Assessment & Plan: 06/21: Large facial hematoma and right chest and back, no acute signs of bleeding 06/22: Iron panel pending 06/23: Fe def, dose of venofer given today, repeat on Sunday 06/24: Repeat Venofer tomorrow AM prior to d/c Qualifiers: Qualified Codes: D64.9 - Anemia, unspecified (6) Constipation Status: Acute Assessment & Plan: 06/21: Miralax, laculose, senna Qualifiers: Qualified Codes: K59.00 - Constipation, unspecified (7) Diabetes mellitus with hyperglycemia, with long-term current use of insulin Status: Resolved Qualifiers: Qualified Codes: E11.65 - Type 2 diabetes mellitus with hyperglycemia; 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 (8) Hypertension Status: Chronic Qualifiers: Qualified Codes: I10 - Essential (primary) hypertension (9) Hyperlipidemia Status: Chronic Qualifiers: Qualified Codes: E78.5 - Hyperlipidemia, unspecified (10) Head injury Status: Acute Qualifiers: Qualified Codes: S09.90XA - Unspecified injury of head, initial encounter (11) Hyperkalemia Status: Resolved Assessment & Plan: 06/21: S/p Kexalate (12) Frequent falls Status: Acute (13) Physical debility Assessment & Plan: 06/21: Recommend d/c to SNF 06/22: Spoke with patient and son this AM and patient is more on board to SNF placement, SW notified 06/23: SNF placement planned for tuesday, will repeat labs next week in SNF ODILON SOSA MD Jun 24, 2022 20:24
[2022-06-24] MEDS ORDERED: FUROSEMIDE 40 MG/4 ML INJ (LASIX) IVP ONE (20:30)
--- NOTE | 2022-06-24 22:23 | Diagnostic Imaging Report ---
EXAMINATION: Chest radiograph, portable AP view. DATE: 06/24/2022 9:41 PM INDICATION: 71-year-old female, shortness of breath. COMPARISON: June 17, 2022. FINDINGS: There are surgical clips in the left axilla. Heart size and mediastinal contours are unchanged. There is no identified pneumothorax. There is no large pleural effusion. There are streaky opacities in the left medial lung base which appear unchanged. IMPRESSION: Streaky opacities in the left medial lung base which may relate to atelectasis or infiltrate. Dictated by: Dictated on workstation # [id number]
[2022-06-25 00:22] VITALS: BP 147/68
[2022-06-25] MEDS: RT-ALBUTEROL SULF 2.5 MG/3 ML PRE-MIX VIAL IH PRN (04:22)
[2022-06-25] MEDS: LEVOTHYROXINE 125 MCG (LEVOTHROID) TABLET PO SCH (05:50)
[2022-06-25] MEDS: ENOXAPARIN INJECTION 30 MG/0.3 ML SYR SC SCH (05:50)
[2022-06-25] MEDS: inSUlin ASPART (NovoLOG) 1 UNIT/0.01 ML (CHARGE PER UNIT) SC SCH (06:02)
[2022-06-25] MEDS: inSUlin ASPART (NovoLOG) 1 UNIT/0.01 ML (CHARGE PER UNIT) SQ SCH (06:28)
[2022-06-25] MEDS ORDERED: IRON SUCROSE 200 MG/10 ML (VENOFER) VIAL IV ONE (07:00)
[2022-06-25 08:00] VITALS: BP 166/74
--- NOTE | 2022-06-25 08:42 | Cardiology Progress Note ---
Subjective Date Seen by Provider: Jun 25, 2022 Time Seen by Provider: 08:41 Subjective/Events-last exam Patient was seen at bedside, laying down comfortably, eating breakfast Feeling better Review of Systems General: No Chills, No Night Sweats; Fatigue; No Malaise, No Appetite, No Other HEENT: No Head Aches, No Visual Changes, No Eye Pain, No Ear Pain, No Dysphasia, No Sinus Congestion, No Post Nasal Drip, No Sore Throat, No Other Pulmonary: No Dyspnea, No Cough, No Pleuritic Chest Pain, No Other Cardiovascular: No: Chest Pain, Palpitations, Orthopnea, Paroxysmal Noc. Dyspnea, Edema, Lt Headedness, Other Objective-Cardiology Exam Last Set of Vital Signs Vital Signs 06/21/22 06/25/22 06:50 08:00 Temp 36.4 Pulse 63 Resp 16 B/P (MAP) 166/74 (104) Pulse Ox 99 O2 Delivery High Flow N/C O2 Flow Rate 2.00 FiO2 28 I&O Intake and Output 06/25/22 00:00 Intake Total 1500 ml Output Total 2000 ml Balance -500 ml Intake Oral 1500 ml Output Urine Total 2000 ml General: Alert, Oriented X3, Mild Distress (with minimal activity) HEENT: Other (yellow and purple brusing present on right face) Neck: Supple Lungs: Clear to Auscultation, Normal Air Movement Heart: Regular Rate, Normal S1, Normal S2, No Murmurs Abdomen: Normal Bowel Sounds, Soft, No Tenderness, No Masses Extremities: No Clubbing, Normal Pulses, Other (2+ pitting edema) Skin: No Rashes, No Significant Lesion, Other (Lymphedema of the left upper extremity) Neuro: Normal Speech, Sensation Intact Psych/Mental Status: Mental Status NL, Mood NL Results Lab Laboratory Tests Test 06/24/22 11:15 06/24/22 15:40 06/24/22 20:02 06/25/22 06:02 Range/Units Glucometer 135 H 145 H 160 H 168 H 70-110 MG/DL A/P-Cardiology Admission Diagnosis Coronary artery disease Hypertension Hyperlipidemia Cellulitis Assessment/Plan Ac renal failure and hyperkalemia Renal function are continuing to improve Continue to monitor, followed and managed by Dr. Patel Sepsis and cellulitis of LUE No further erythema or swelling, has chronic lymphedema of the left upper extre mity Continue to monitor Bruising over and around R orbit Status post fall prior to admission. Continue to monitor Aortic stenosis-moderate, asymptomatic 2D echo was done on April 19, 2022 showing moderate stenosis, ejection fraction 45 to 50%, severe pulmonary hypertension with PA pressure 65 to 70 mmHg Coronary artery disease Underwent LHC on 04/20/22 after having abnormal stress test showing coronary artery disease primarily consisting of 70% mid vessel stenosis of the left anterior descending. This lesion was stented with Promus 3.0 x 18 mm stent with no significant residual stenosis. The rest of the coronary vessels do not exhibit significant obstructive disease. Mild impairment of global left ventricular systolic function with ejection fraction 45% to 50% Maintained on ASA and Plavix Hypertension, monitor blood pressure, no changes HLP statin tx DM management per medical services. Hypothyroidism COPD oxygen dependent H/O breast cancer with left mastectomy and residual LUE lymphedema Obesity Diabetic neuropathy Chronic peripheral edema BILL HAMPTON MD Jun 25, 2022 08:42
[2022-06-25] MEDS: NYSTATIN ORAL SUSP 5 ML UDC PO SCH (08:59)
[2022-06-25] MEDS: SODIUM BICARBONATE 650 MG TABLET PO SCH (08:59)
[2022-06-25] MEDS: CLOPIDOGREL 75 MG (PLAVIX) TABLET PO SCH (09:00)
[2022-06-25] MEDS: ASPIRIN 81 MG CHEW (CHILDREN'S ASA) PO SCH (09:00)
[2022-06-25] MEDS: VENlafaxine 37.5 MG (EFFEXOR) TAB PO SCH (09:00)
[2022-06-25] MEDS: RT-ALBUTEROL/IPRATROPIUM 3 ML (DUONEB) VIAL IH SCH (09:08)
[2022-06-25] MEDS: BISACODYL 10 MG SUPP (DULCOLAX) PR SCH (09:34)
[2022-06-25] MEDS: DOCUSATE SODIUM 100 MG (COLACE) CAP PO SCH (09:34)
[2022-06-25] MEDS: SENNA W/DOCUSATE (SENOKOT S) TABLET PO SCH (09:34)
[2022-06-25 09:41] LABS: BASOPHILS % (AUTO) 1 % (0-10); EOSINOPHILS # (AUTO) 0.3 10^3/uL (0.0-0.3); EOSINOPHILS % (AUTO) 5 % (0-10); HEMATOCRIT 28 % (35-52); HEMOGLOBIN 8.7 g/dL (11.5-16.0); LYMPHOCYTES # (AUTO) 1.1 10^3/uL (1.0-4.0); LYMPHOCYTES % (AUTO) 15 % (12-44); MEAN CORPUSCULAR HEMOGLOBIN 28 pg (25-34); MEAN CORPUSCULAR HGB CONC 31 g/dL (32-36); MEAN CORPUSCULAR VOLUME 88 fL (80-99); MEAN PLATELET VOLUME 9.4 fL (9.0-12.2); MONOCYTES # (AUTO) 0.7 10^3/uL (0.0-1.0); MONOCYTES % (AUTO) 10 % (0-12); NEUTROPHILS # (AUTO) 4.8 10^3/uL (1.8-7.8); NEUTROPHILS % (AUTO) 66 % (42-75); PLATELET COUNT 337 10^3/uL (130-400); WHITE BLOOD COUNT 7.2 10^3/uL (4.3-11.0)
--- NOTE | 2022-06-25 10:04 | Discharge Summary ---
Discharge Summary Reconcile Patient Problems Problems Reviewed?: Yes Hospital Course Hospital Course Date of Admission: Jun 17, 2022 at 16:14 Admission Diagnosis : Family Physician/Provider: Patricio Barnard MD Date of Discharge: 06/24/22 Discharge Diagnosis: Left Upper Extremity Cellulitis Chronic LUE Lymphedema Acute on Chronic Renal Failure Acute on Chronic Respiratory Failure UTI Rhabdomyalysis Iron Deficiency Anemia IDDM HTN Obesity Labs and Pending Lab Test: Laboratory Tests 06/23/22 20:48: Glucometer 202H 06/24/22 06:45: White Blood Count 7.8, Red Blood Count 2.92L, Hemoglobin 8.1L, Hematocrit 26L, Mean Corpuscular Volume 88, Mean Corpuscular Hemoglobin 28, Mean Corpuscular Hemoglobin Concent 32, Red Cell Distribution Width 14.6H, Platelet Count 338, Mean Platelet Volume 10.3, Immature Granulocyte % (Auto) 2, Neutrophils (%) (Auto) 66, Lymphocytes (%) (Auto) 16, Monocytes (%) (Auto) 11, Eosinophils (%) (Auto) 4, Basophils (%) (Auto) 1, Neutrophils # (Auto) 5.2, Lymphocytes # (Auto) 1.2, Monocytes # (Auto) 0.9, Eosinophils # (Auto) 0.3, Basophils # (Auto) 0.1, Immature Granulocyte # (Auto) 0.2H, Sodium Level 138, Potassium Level 5.0, Chloride Level 106, Carbon Dioxide Level 23, Anion Gap 9, Blood Urea Nitrogen 61H, Creatinine 3.08#H, Estimat Glomerular Filtration Rate 16, BUN/Creatinine Ratio 20, Glucose Level 119H, Calcium Level 8.2L, Corrected Calcium 9.2, Total Bilirubin 0.4, Aspartate Amino Transf (AST/SGOT) 23, Alanine Aminotransferase (ALT/SGPT) 21, Alkaline Phosphatase 305H, Total Protein 5.7L, Albumin 2.7L 06/24/22 11:15: Glucometer 135H 06/24/22 15:40: Glucometer 145H 06/24/22 20:02: Glucometer 160H Microbiology 06/20/22 Urine Culture - Final, Complete NO GROWTH 06/17/22 Blood Culture - Final, Complete No growth Home Meds Active Reported Plavix (Clopidogrel Bisulfate) 75 Mg Tablet 75 Mg PO DAILY Atorvastatin Calcium 10 Mg Tablet 10 Mg PO HS Aspirin 81 Mg Tab.chew 81 Mg PO DAILY Levemir (Insulin Determir) 100 Unit/Ml Soln 20 Units SQ HS Novolog (Insulin Aspart) 100 Unit/Ml Cartridge 14 Units SQ TIDAC Tylenol Extra Strength (Acetaminophen) 500 Mg Tablet 500 Mg PO Q8H PRN Losartan Potassium 100 Mg Tablet 100 Mg PO DAILY Venlafaxine HCl 37.5 Mg Tab 37.5 Mg PO TID Neurontin (Gabapentin) 300 Mg Capsule 600 Mg PO HS TAKES 2 (300MG) CAPS Neurontin (Gabapentin) 300 Mg Capsule 300 Mg PO DAILY Furosemide 20 Mg Tablet 20 Mg PO DAILY Levothyroxine (Levothyroxine Sodium) 125 Mcg Capsule 125 Mcg PO DAILY Carvedilol 6.25 Mg Tablet 6.25 Mg PO BID LAST FILLED 04-27-2022 #60/30 DAY SUPPLY Zolpidem Tartrate 5 Mg Tablet 2.5-5 Mg PO HS PRN TAKES TO 1 (5MG) TAB Proair Hfa (Albuterol Sulfate) 1 Puff Puff 2 Puff IH Q4H PRN Skilled NF Admit to: Certification (SNF) I certify that SNF services are required to be given on an inpatient basis because of the above named patient's need for care home care on a continuing basis for the conditions(s) for which he/she was receiving inpatient hospital services prior to his/her transfer to the SNF. Group Home Facility Order: Nursing Services, Physical Therapy-Evaluate & Treat, Wound Care-Eval/Treat (LUE lymphedema wrapping) Oxygen Delivery Method: High Flow N/C Discharge Diet: ADA Diet, Cardiac Diet Daily Activity as Tolerated: Yes Resuscitation Status: Full Code New & Resume Previous Orders BMP next tuesday and Odilon De Jesus Jun 24, 2022 20:31 Discharge Physical Exam General: Alert, Oriented X3, Cooperative, No Acute Distress HEENT: Mucous Memb Moist/[place], Other (brusing to right face, yellow/purple) Lungs: Clear to Auscultation Heart: Regular Rate Abdomen: Soft, No Tenderness Extremities: Other (2+ pitting edema LE bilaterally) Neuro: Normal Speech Psych/Mental Status: Mental Status NL, Mood NL ODILON DE JESUS MD Jun 24, 2022 20:33
[2022-06-25 10:08] LABS: BILIRUBIN,TOTAL 0.5 MG/DL (0.1-1.0); CALCIUM 8.6 MG/DL (8.5-10.1); CREATININE SERUM 2.66 MG/DL (0.60-1.30); POTASSIUM 5.1 MMOL/L (3.6-5.0); TOTAL PROTEIN 6.2 GM/DL (6.4-8.2)
[2022-06-25] MEDS ORDERED: NYST1000 PO (10:08)
[2022-06-25] MEDS ORDERED: LOSA100T57 PO (10:08)
[2022-06-25] MEDS: HYDROmorphone 2 MG/ML VIAL (DILAUDID) IV PRN (10:23)
[2022-06-25] MEDS ORDERED: hydrALAZINE (APRESOLINE) 25 MG TAB PO NR (10:45)
== END 2022-06-25 11:03 | DRG 602 ==
LOC: ER FS 11:53 → CSD 16:14 → 4TH 06-18 15:37
PROVIDERS: ADMIT Internal Medicine; ATTEND Family Medicine
PROC: 5A0945A Assistance with Respiratory Ventilation, 24-96 Consecutive Hours, High Flow/Velocity Cannula (ICD-10-PCS; principal; 2022-06-21)
DX: L03.114 Cellulitis of left upper limb (principal); J96.20 Acute and chronic respiratory failure, unspecified whether with hypoxia or hypercapnia; N17.9 Acute kidney failure, unspecified; M62.82 Rhabdomyolysis; N39.0 Urinary tract infection, site not specified; Z68.43 Body mass index [BMI] 50.0-59.9, adult; I89.0 Lymphedema, not elsewhere classified; R53.81 Other malaise; N18.9 Chronic kidney disease, unspecified; E87.5 Hyperkalemia; E11.22 Type 2 diabetes mellitus with diabetic chronic kidney disease; I12.9 Hypertensive chronic kidney disease with stage 1 through stage 4 chronic kidney disease, or unspecified chronic kidney disease; E78.5 Hyperlipidemia, unspecified; I25.10 Atherosclerotic heart disease of native coronary artery without angina pectoris; Z95.5 Presence of coronary angioplasty implant and graft; J44.9 Chronic obstructive pulmonary disease, unspecified; E03.9 Hypothyroidism, unspecified; Z85.3 Personal history of malignant neoplasm of breast; Z92.21 Personal history of antineoplastic chemotherapy; Z90.12 Acquired absence of left breast and nipple; M19.90 Unspecified osteoarthritis, unspecified site; B96.1 Klebsiella pneumoniae [K. pneumoniae] as the cause of diseases classified elsewhere; D63.1 Anemia in chronic kidney disease; K59.00 Constipation, unspecified; E11.65 Type 2 diabetes mellitus with hyperglycemia; Z79.4 Long term (current) use of insulin; D50.9 Iron deficiency anemia, unspecified; E66.9 Obesity, unspecified; I35.0 Nonrheumatic aortic (valve) stenosis; E11.40 Type 2 diabetes mellitus with diabetic neuropathy, unspecified; R60.9 Edema, unspecified; S05.11XA Contusion of eyeball and orbital tissues, right eye, initial encounter; W18.30XA Fall on same level, unspecified, initial encounter
CPT/HCPCS: 36415; 51702; 70450; 70486; 71045; 72100; 72125; 72170; 80053; 81000; 82550; 82728; 82805; 82947; 83540; 83550; 83605; 84132; 85007; 85025; 85027; 87040; 87077; 87088; 87186; 94640; 94664; 94760

== ENCOUNTER 2022-07-09 11:49 | Emergency (ER) | payer MEDICARE, MEDICAID ==
[~2022-07-09 11:49] MED LIST changes: +ASPI-999 PO; +CLOP75TA69 PO; +NYST1000 PO
[2022-07-09] MEDS ORDERED: RT-ALBUTEROL SULF 2.5 MG/3 ML PRE-MIX VIAL INH STA (12:00)
--- NOTE | 2022-07-09 12:00 | ED Respiratory ---
General Chief Complaint: Respiratory Problems Stated Complaint: SOB History of Present Illness Date Seen by Provider: Jul 09, 2022 Time Seen by Provider: 11:59 Initial Comments 71-year-old female presents with feeling of shortness of breath. Patient has longstanding COPD and dyspnea. Patient is normally on 2 L O2. Patient reports that since this morning she has felt like she just cannot get a deep breath. Patient brought in by EMS who gave her a DuoNeb. Upon arrival her O2 saturations on her baseline 2 L is running mid 90s. Patient denies any chest pain. She denies any cough, fevers chills nausea vomiting Allergies and Home Medications Allergies Coded Allergies: ceftriaxone (Verified Allergy, Intermediate, N/V/D, 04/18/22) adhesive tape (Unverified Allergy, Unknown, 12/24/19) codeine (Verified Allergy, Unknown, Nausea, 06/17/22) morphine (Verified Allergy, Unknown, Nausea, 06/17/22) penicillin G (Verified Allergy, Unknown, 12/24/19) Patient Home Medication List Home Medication List Reviewed: Yes Acetaminophen (Tylenol Extra Strength) 500 Mg Tablet, 500 MG PO Q8H PRN for PAIN-MILD (1-4), (Reported) Entered as Reported by: BRAXTON STYLES on 04/19/22 1347 Albuterol Sulfate (Proair Hfa) 1 Puff Puff, 2 PUFF IH Q4H PRN for SHORTNESS OF BREATH, (Reported) Entered as Reported by: BASHIR SALEH on 09/15/21 1043 Aspirin (Aspirin) 81 Mg Tab.chew, 81 MG PO DAILY, (Reported) Entered as Reported by: BASHIR SALEH on 06/18/22 1242 Atorvastatin Calcium (Atorvastatin Calcium) 10 Mg Tablet, 10 MG PO HS, (Reported) Entered as Reported by: BASHIR SALEH on 06/18/22 1242 Carvedilol (Carvedilol) 6.25 Mg Tablet, 6.25 MG PO BID, (Reported) Entered as Reported by: BRAXTON STYLES on 04/19/22 1344 Clopidogrel Bisulfate (Plavix) 75 Mg Tablet, 75 MG PO DAILY, (Reported) Entered as Reported by: BASHIR SALEH on 06/18/22 1242 Furosemide (Lasix) 20 Mg Tablet, 20 MG PO DAILY Prescribed by: SAE FAUST on 07/09/22 1437 Gabapentin (Neurontin) 300 Mg Capsule, 300 MG PO DAILY, (Reported) Entered as Reported by: BRAXTON STYLES on 04/19/22 1345 Gabapentin (Neurontin) 300 Mg Capsule, 600 MG PO HS, (Reported) Entered as Reported by: BRAXTON STYLES on 04/19/22 1346 Insulin Aspart (Novolog) 100 Unit/Ml Cartridge, 14 UNITS SQ TIDAC, (Reported) Entered as Reported by: BRAXTON STYLES on 04/19/22 1348 Insulin Determir (Levemir) 100 Unit/Ml Soln, 20 UNITS SQ HS, (Reported) Entered as Reported by: BASHIR SALEH on 06/18/22 1242 Levofloxacin (Levofloxacin) 500 Mg Tablet, 500 MG PO DAILY Prescribed by: SAE FAUST on 07/09/22 1437 Levothyroxine Sodium (Levothyroxine) 125 Mcg Capsule, 125 MCG PO DAILY, (Reported) Entered as Reported by: BRAXTON STYLES on 04/19/22 1344 Losartan Potassium (Losartan Potassium) 100 Mg Tablet, 100 MG PO DAILY Prescribed by: ODILON SOSA on 06/25/22 1008 Nystatin (Nystatin) 100,000 Unit/Ml Oral.susp, 5 ML PO QID Prescribed by: ODILON SOSA on 06/25/22 1008 Venlafaxine HCl (Venlafaxine HCl) 37.5 Mg Tab, 37.5 MG PO TID, (Reported) Entered as Reported by: BRAXTON STYLES on 04/19/22 1346 Zolpidem Tartrate (Zolpidem Tartrate) 5 Mg Tablet, 2.5-5 MG PO HS PRN for SLEEP, (Reported) Entered as Reported by: BRAXTON STYLES on 04/19/22 1344 Review of Systems Review of Systems Constitutional: No chills, No fever EENTM: no symptoms reported Respiratory: short of breath Cardiovascular: No chest pain; palpitations Gastrointestinal: No abdominal pain, No nausea, No vomiting Genitourinary: no symptoms reported Musculoskeletal: no symptoms reported Skin: no symptoms reported Psychiatric/Neurological: Anxiety, Depressed Hematologic/Lymphatic: No Symptoms Reported Past Pqboehc-Zpdxtb-Wmlvyc Hx Immunizations Up To Date First/Initial COVID19 Vaccinat: Moderna Second COVID19 Vaccination Alok: Moderna Third COVID19 Vaccination Date: Seasonal Allergies Seasonal Allergies: No Past Medical History Surgery/Hospitalization HX: IDDM left mastectomy Surgeries: Yes (R Masectomy, R Augmentation, ) Gallbladder, Hysterectomy, Orthopedic, Thyroidectomy Respiratory: No Cardiac: No (Lymphedema) Neurological: No 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 oz. kg; 52.81 BMI Method: General Appearance: obese (morbid ), other (Chronically ill with chronic debility) Respiratory: no respiratory distress, no accessory muscle use, decreased breath sounds (Diffuse, partial body habitus) Cardiovascular: normal peripheral pulses, regular rate, rhythm Gastrointestinal: non tender, soft Neurologic/Psychiatric: alert, normal mood/affect, oriented x 3 Skin: normal color, warm/dry Progress/Results/Core Measures Suspected Sepsis SIRS Temperature: Pulse: Respiratory Rate: Laboratory Tests 07/09/22 12:04: White Blood Count 9.3 Blood Pressure / Mean: Laboratory Tests 07/09/22 12:04: Creatinine 1.76H, Platelet Count 276, Total Bilirubin 0.4 Results/Orders Lab Results Laboratory Tests Test 07/09/22 12:04 Range/Units White Blood Count 9.3 4.3-11.0 10^3/uL Red Blood Count 3.16 L 3.80-5.11 10^6/uL Hemoglobin 8.8 L 11.5-16.0 g/dL Hematocrit 28 L 35-52 % Mean Corpuscular Volume 90 80-99 fL Mean Corpuscular Hemoglobin 28 25-34 pg Mean Corpuscular Hemoglobin Concent 31 L 32-36 g/dL Red Cell Distribution Width 16.1 H 10.0-14.5 % Platelet Count 276 130-400 10^3/uL Mean Platelet Volume 10.4 9.0-12.2 fL Immature Granulocyte % (Auto) 0 % Neutrophils (%) (Auto) 84 H 42-75 % Lymphocytes (%) (Auto) 10 L 12-44 % Monocytes (%) (Auto) 4 0-12 % Eosinophils (%) (Auto) 1 0-10 % Basophils (%) (Auto) 0 0-10 % Neutrophils # (Auto) 7.8 1.8-7.8 10^3/uL Lymphocytes # (Auto) 0.9 L 1.0-4.0 10^3/uL Monocytes # (Auto) 0.4 0.0-1.0 10^3/uL Eosinophils # (Auto) 0.1 0.0-0.3 10^3/uL Basophils # (Auto) 0.0 0.0-0.1 10^3/uL Immature Granulocyte # (Auto) 0.0 0.0-0.1 10^3/uL Sodium Level 143 135-145 MMOL/L Potassium Level 5.2 H 3.6-5.0 MMOL/L Chloride Level 108 H 98-107 MMOL/L Carbon Dioxide Level 24 21-32 MMOL/L Anion Gap 11 5-14 MMOL/L Blood Urea Nitrogen 55 H 7-18 MG/DL Creatinine 1.76 H 0.60-1.30 MG/DL Estimat Glomerular Filtration Rate 31 BUN/Creatinine Ratio 31 Glucose Level 88 70-105 MG/DL Calcium Level 8.1 L 8.5-10.1 MG/DL Corrected Calcium 8.6 8.5-10.1 MG/DL Magnesium Level 2.0 1.6-2.4 MG/DL Total Bilirubin 0.4 0.1-1.0 MG/DL Aspartate Amino Transf (AST/SGOT) 42 H 5-34 U/L Alanine Aminotransferase (ALT/SGPT) 28 0-55 U/L Alkaline Phosphatase 532 H 40-136 U/L C-Reactive Protein 1.74 H <0.50 MG/DL Pro-B-Type Natriuretic Peptide 25986.0 H <125.0 PG/ML Total Protein 6.5 6.4-8.2 GM/DL Albumin 3.4 3.2-4.5 GM/DL SARS-CoV-2 RNA (RT-PCR) Not Detected Not Detecte My Orders Orders - SAE FAUST DO Cbc With Automated Diff (07/09/22 12:00) Comprehensive Metabolic Panel (07/09/22 12:00) Magnesium (07/09/22 12:00) Probnp Fs (07/09/22 12:00) Crp Fs (07/09/22 12:00) Chest 1 View Ap/Pa Only (07/09/22 12:00) Albuterol Pre-Mix Nebs (Rt) (Proventil (07/09/22 12:00) Dexamethasone Injection (Decadron Inje (07/09/22 12:00) Svn Small Volume Nebulizer (07/09/22 12:00) Covid 19 Inhouse Test (07/09/22 12:03) Olanzapine Orally Dissolve Tab (Zyprexa (07/09/22 12:45) Furosemide Injection (Lasix Injection) (07/09/22 13:15) Levofloxacin 500 Mg/100 Ml Iv (Levaquin (07/09/22 13:45) Medications Given in ED Current Medications Medications Dose Ordered Sig/Francy Route Start Time Stop Time Status Last Admin Dose Admin Dexamethasone Sodium Phosphate 10 mg ONCE ONCE IV 07/09/22 12:00 07/09/22 12:02 DC 07/09/22 12:09 10 MG Furosemide 80 mg ONCE ONCE IVP 07/09/22 13:15 07/09/22 13:16 DC 07/09/22 13:20 80 MG Levofloxacin/ Dextrose 100 ml @ 100 mls/hr ONCE ONCE IV 07/09/22 13:45 07/09/22 14:44 DC 07/09/22 13:44 100 MLS/HR Olanzapine 5 mg ONCE ONCE PO 07/09/22 12:45 07/09/22 12:46 DC 07/09/22 12:53 5 MG Vital Signs/I&O 07/09/22 07/09/22 07/09/22 11:53 11:53 14:40 Temp 36.3 36.3 Pulse 90 85 Resp 22 22 B/P (MAP) 111/65 (80) 175/87 Pulse Ox 98 97 O2 Delivery Nasal Cannula Nasal Cannula Nasal Cannula O2 Flow Rate 3.00 3.00 3.00 3.00 Capillary Refill : Progress Note : Progress Note Patient with mixed pasture of COPD, pneumonia and some mild pulmonary edema. However patient's O2 saturations remained in the mid to upper 90s on her home 2 L. Patient was much better following treatment in the ER. I will prescribe her Levaquin and Lasix. She should follow with her primary care provider Tuesday or Tuesday for recheck. Return to the ER as needed Diagnostic Imaging Diagonstic Imaging: Xray Plain Films/CT/US/NM/MRI: chest Comments Date of Exam:07/09/22 CHEST 1 VIEW AP/PA ONLY INDICATION: Shortness of breath COMPARISON: 06/24/2022 TECHNIQUE: Single radiograph of the chest dated 07/09/2022. FINDINGS: The cardiac silhouette is enlarged. Central pulmonary vascular congestion is present, increased since the prior examination. Increasing mild bilateral interstitial pulmonary opacities with associated more focal right basilar airspace opacities. No significant pleural effusion. No pneumothorax. Surgical clips overlying left axilla. No acute osseous abnormality. IMPRESSION: Increasing diffuse interstitial opacities with associated increasing central pulmonary vascular congestion suggests underlying congestive heart failure/volume overload with interstitial edema. Additional right basilar edema versus infiltrate. Reviewed: Reviewed by Me, Reviewed/Discussed Departure Impression Primary Impression: Chest congestion Additional Impressions: Pulmonary edema Qualified Codes: J81.0 - Acute pulmonary edema Infiltrate of lung present on chest x-ray Disposition: HOME, SELF-CARE Condition: Stable Departure-Patient Inst. Referrals: SELF,BERNADINE CAMPOS (PCP) Primary Care Physician Patient Instructions: Shortness of Breath (Dyspnea) (DC), Heart Failure ED Add. Discharge Instructions: Follow-up with your primary care provider Tuesday or Tuesday to recheck your symptoms Please start new antibiotic and Lasix tomorrow morning All discharge instructions reviewed with patient and/or family. Voiced understanding. Scripts Levofloxacin (Levofloxacin) 500 Mg Tablet 500 MG PO DAILY for 5 Days, #5 TAB Prov: ROSALIA FAUSTR L DO 07/09/22 Furosemide (Lasix) 20 Mg Tablet 20 MG PO DAILY, #5 TAB Prov: FAUST,SAE L DO 07/09/22 ROSALIA FAUSTR Freddy DO Jul 09, 2022 11:59
[2022-07-09 12:11] LABS: BASOPHILS % (AUTO) 0 % (0-10); EOSINOPHILS # (AUTO) 0.1 10^3/uL (0.0-0.3); EOSINOPHILS % (AUTO) 1 % (0-10); HEMATOCRIT 28 % (35-52); HEMOGLOBIN 8.8 g/dL (11.5-16.0); LYMPHOCYTES # (AUTO) 0.9 10^3/uL (1.0-4.0); LYMPHOCYTES % (AUTO) 10 % (12-44); MEAN CORPUSCULAR HEMOGLOBIN 28 pg (25-34); MEAN CORPUSCULAR HGB CONC 31 g/dL (32-36); MEAN CORPUSCULAR VOLUME 90 fL (80-99); MEAN PLATELET VOLUME 10.4 fL (9.0-12.2); MONOCYTES # (AUTO) 0.4 10^3/uL (0.0-1.0); MONOCYTES % (AUTO) 4 % (0-12); NEUTROPHILS # (AUTO) 7.8 10^3/uL (1.8-7.8); NEUTROPHILS % (AUTO) 84 % (42-75); PLATELET COUNT 276 10^3/uL (130-400); WHITE BLOOD COUNT 9.3 10^3/uL (4.3-11.0)
[2022-07-09 12:40] LABS: POTASSIUM 5.2 MMOL/L (3.6-5.0)
[2022-07-09 12:42] LABS: ALBUMIN 3.4 GM/DL (3.2-4.5); BILIRUBIN,TOTAL 0.4 MG/DL (0.1-1.0); CALCIUM 8.1 MG/DL (8.5-10.1); CREATININE SERUM 1.76 MG/DL (0.60-1.30); TOTAL PROTEIN 6.5 GM/DL (6.4-8.2)
[2022-07-09] MEDS ORDERED: OLANZapine 5 MG ODT (ZyPREXA ZYDIS) PO ONE (12:45)
--- NOTE | 2022-07-09 12:56 | Diagnostic Imaging Report ---
INDICATION: Shortness of breath COMPARISON: 06/24/2022 TECHNIQUE: Single radiograph of the chest dated 07/09/2022. FINDINGS: The cardiac silhouette is enlarged. Central pulmonary vascular congestion is present, increased since the prior examination. Increasing mild bilateral interstitial pulmonary opacities with associated more focal right basilar airspace opacities. No significant pleural effusion. No pneumothorax. Surgical clips overlying left axilla. No acute osseous abnormality. IMPRESSION: Increasing diffuse interstitial opacities with associated increasing central pulmonary vascular congestion suggests underlying congestive heart failure/volume overload with interstitial edema. Additional right basilar edema versus infiltrate. Dictated by: Dictated on workstation # [id number]
[2022-07-09] MEDS ORDERED: FUROSEMIDE 40 MG/4 ML INJ (LASIX) IVP ONE (13:15)
[2022-07-09] MEDS ORDERED: LEVO-55 PO (14:37)
[2022-07-09] MEDS ORDERED: FURO-125 PO (14:37)
[2022-07-09 14:40] VITALS: BP 175/87
== END 2022-07-09 15:23 | disposition home or self-care (01) ==
LOC: EDUNIT# 11:49 → ER FS 11:50
DX: J81.1 Chronic pulmonary edema (principal); R91.8 Other nonspecific abnormal finding of lung field; E66.01 Morbid (severe) obesity due to excess calories; E11.9 Type 2 diabetes mellitus without complications; Z68.43 Body mass index [BMI] 50.0-59.9, adult; Z79.4 Long term (current) use of insulin
CPT/HCPCS: 36415; 51702; 71045; 80053; 83735; 83880; 85025; 86141; 87636; 94640

== ENCOUNTER 2022-07-14 17:24 | Emergency (ER) | payer MEDICARE, MEDICAID ==
[~2022-07-14 17:24] MED LIST changes: +FURO-125 PO
[2022-07-14] MEDS ORDERED: FUROSEMIDE 40 MG/4 ML INJ (LASIX) IVP STA (17:34)
--- NOTE | 2022-07-14 17:42 | ED Dyspnea ---
General Stated Complaint: SOB Source of Information: Patient, EMS, [facility] Records, Old Records History of Present Illness Date Seen by Provider: Jul 14, 2022 Time Seen by Provider: 17:24 Initial Comments 71-year-old female presenting with complaints of increased shortness of breath and chest tightness. She does have COPD as well as CHF and is on chronic home O2 2 to 3 L. Her oxygen saturations are 97% on her home oxygen. She had been given a dose of Lasix as well as Xanax and nitroglycerin at the [facility]. However if she continued to feel short of breath so they sent her by EMS to the emergency department to be evaluated. She was admitted last month to [facility] for acute on chronic kidney failure, acute on chronic respiratory failure, cellulitis. Timing/Duration: 4-6 Hours Severity: Moderate Activities at Onset: Rest Prior Episodes/Possible Cause: Chronic Episodes, Frequent Episodes Modifying Factors: Worse With Activity, Worse With Lying Down; Improves With Oxygen Associated Symptoms: Anxiety, Chest Pain (Tightness), Edema Allergies and Home Medications Allergies Coded Allergies: ceftriaxone (Verified Allergy, Intermediate, N/V/D, 04/18/22) adhesive tape (Unverified Allergy, Unknown, 12/24/19) codeine (Verified Allergy, Unknown, Nausea, 06/17/22) morphine (Verified Allergy, Unknown, Nausea, 06/17/22) penicillin G (Verified Allergy, Unknown, 12/24/19) Patient Home Medication List Home Medication List Reviewed: Yes Acetaminophen (Tylenol Extra Strength) 500 Mg Tablet, 500 MG PO Q8H PRN for PAIN-MILD (1-4), (Reported) Entered as Reported by: BRAXTON STYLES on 04/19/22 1347 Albuterol Sulfate (Proair Hfa) 1 Puff Puff, 2 PUFF IH Q4H PRN for SHORTNESS OF BREATH, (Reported) Entered as Reported by: BASHIR SALEH on 09/15/21 1043 Aspirin (Aspirin) 81 Mg Tab.chew, 81 MG PO DAILY, (Reported) Entered as Reported by: BASHIR SALEH on 06/18/22 1242 Atorvastatin Calcium (Atorvastatin Calcium) 10 Mg Tablet, 10 MG PO HS, (Reported) Entered as Reported by: BASHIR SALEH on 06/18/22 1242 Carvedilol (Carvedilol) 6.25 Mg Tablet, 6.25 MG PO BID, (Reported) Entered as Reported by: BRAXTON STYLES on 04/19/22 1344 Clopidogrel Bisulfate (Plavix) 75 Mg Tablet, 75 MG PO DAILY, (Reported) Entered as Reported by: BASHIR SALEH on 06/18/22 1242 Furosemide (Lasix) 20 Mg Tablet, 20 MG PO DAILY Prescribed by: SAE FAUST on 07/09/22 1437 Furosemide (Furosemide) 20 Mg Tablet, 20 MG PO DAILY Prescribed by: SILVIA KOEHLER on 07/14/222013 Gabapentin (Neurontin) 300 Mg Capsule, 300 MG PO DAILY, (Reported) Entered as Reported by: BRAXTON STYLES on 04/19/22 1345 Gabapentin (Neurontin) 300 Mg Capsule, 600 MG PO HS, (Reported) Entered as Reported by: BRAXTON STYLES on 04/19/22 134 Insulin Aspart (Novolog) 100 Unit/Ml Cartridge, 14 UNITS SQ TIDAC, (Reported) Entered as Reported by: BRAXTON STYLES on 04/19/22 1348 Insulin Determir (Levemir) 100 Unit/Ml Soln, 20 UNITS SQ HS, (Reported) Entered as Reported by: BASHIR SALEH on 06/18/22 1242 Levofloxacin (Levofloxacin) 500 Mg Tablet, 500 MG PO DAILY Prescribed by: SAE FAUST on 07/09/22 1437 Levothyroxine Sodium (Levothyroxine) 125 Mcg Capsule, 125 MCG PO DAILY, (Reported) Entered as Reported by: BRAXTON STYLES on 04/19/22 1344 Losartan Potassium (Losartan Potassium) 100 Mg Tablet, 100 MG PO DAILY Prescribed by: ODILON SOSA on 06/25/22 1008 Nystatin (Nystatin) 100,000 Unit/Ml Oral.susp, 5 ML PO QID Prescribed by: ODILON SOSA on 06/25/22 1008 Venlafaxine HCl (Venlafaxine HCl) 37.5 Mg Tab, 37.5 MG PO TID, (Reported) Entered as Reported by: BRAXTON STYLES on 04/19/22 1346 Zolpidem Tartrate (Zolpidem Tartrate) 5 Mg Tablet, 2.5-5 MG PO HS PRN for SLEEP, (Reported) Entered as Reported by: BRAXTON STYLES on 04/19/22 7434 Review of Systems Review of Systems Constitutional: No chills, No fever EENTM: no symptoms reported Respiratory: short of breath; No stridor; wheezing Cardiovascular: chest pain (Tightness), edema Gastrointestinal: No abdominal pain, No nausea, No vomiting Genitourinary: other (Woody catheter in place) Musculoskeletal: no symptoms reported Skin: no symptoms reported Psychiatric/Neurological: Anxiety Past Pltihnp-Ktmnvy-Hmoeji Hx Immunizations Up To Date First/Initial COVID19 Vaccinat: Moderna Second COVID19 Vaccination Alok: Moderna Third COVID19 Vaccination Date: Seasonal Allergies Seasonal Allergies: No Past Medical History Surgery/Hospitalization HX: IDDM;left mastectomy; lymphadema; COPD; CAD; CKD; Hyperlipidemia; Obesity; HTN; Hypthyroidism; Aortic valve stenosis; Type 2 DM Surgeries: Yes (R Masectomy, R Augmentation, ) Gallbladder, Hysterectomy, Orthopedic, Thyroidectomy Respiratory: No Cardiac: No (Lymphedema) Neurological: No 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 Disorders: No 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 oz. kg; BMI Method: General Appearance: Anxious, Chronically ill, Mild Distress, Obese HEENT: PERRL/EOMI, Pharynx Normal Respiratory: Chest Non Tender, Decreased Breath Sounds; No Rhonci, No Stridor, No Wheezing Cardiovascular: Regular Rate, Rhythm, Normal Peripheral Pulses Extremity: Pedal Edema (2+ pitting edema to bilateral lower extremities. She also has chronic edema to the left upper extremity from history of breast cancer and mastectomy) Neurologic/Psychiatric: Alert, emt i/85 II-XII Norm as Tested Skin: Warm/Dry, Pallor Progress/Results/Core Measures Results/Orders Lab Results Laboratory Tests Test 9/21/22 18:15 Range/Units White Blood Count 12.9 H 4.3-11.0 10^3/uL Red Blood Count 3.12 L 3.80-5.11 10^6/uL Hemoglobin 8.5 L 11.5-16.0 g/dL Hematocrit 28 L 35-52 % Mean Corpuscular Volume 88 80-99 fL Mean Corpuscular Hemoglobin 27 25-34 pg Mean Corpuscular Hemoglobin Concent 31 L 32-36 g/dL Red Cell Distribution Width 15.7 H 10.0-14.5 % Platelet Count 307 130-400 10^3/uL Mean Platelet Volume 10.4 9.0-12.2 fL Immature Granulocyte % (Auto) 0 % Neutrophils (%) (Auto) 87 H 42-75 % Lymphocytes (%) (Auto) 5 L 12-44 % Monocytes (%) (Auto) 5 0-12 % Eosinophils (%) (Auto) 2 0-10 % Basophils (%) (Auto) 0 0-10 % Neutrophils # (Auto) 11.2 H 1.8-7.8 10^3/uL Lymphocytes # (Auto) 0.7 L 1.0-4.0 10^3/uL Monocytes # (Auto) 0.7 0.0-1.0 10^3/uL Eosinophils # (Auto) 0.3 0.0-0.3 10^3/uL Basophils # (Auto) 0.0 0.0-0.1 10^3/uL Immature Granulocyte # (Auto) 0.0 0.0-0.1 10^3/uL Neutrophils % (Manual) 74 % Lymphocytes % (Manual) 6 % Monocytes % (Manual) 8 % Eosinophils % (Manual) 1 % Basophils % (Manual) 1 % Band Neutrophils 10 % Platelet Estimate NORMAL Hypochromasia 2+ Microcytosis 1+ Macrocytosis 1+ Sodium Level 139 135-145 MMOL/L Potassium Level 5.4 H 3.6-5.0 MMOL/L Chloride Level 106 98-107 MMOL/L Carbon Dioxide Level 23 21-32 MMOL/L Anion Gap 10 5-14 MMOL/L Blood Urea Nitrogen 52 H 7-18 MG/DL Creatinine 1.66 H 0.60-1.30 MG/DL Estimat Glomerular Filtration Rate 33 BUN/Creatinine Ratio 31 Glucose Level 223 H 70-105 MG/DL Calcium Level 8.1 L 8.5-10.1 MG/DL Corrected Calcium 9.1 8.5-10.1 MG/DL Magnesium Level 1.8 1.6-2.4 MG/DL Total Bilirubin 0.3 0.1-1.0 MG/DL Aspartate Amino Transf (AST/SGOT) 33 5-34 U/L Alanine Aminotransferase (ALT/SGPT) 25 0-55 U/L Alkaline Phosphatase 385 H 40-136 U/L Troponin I < 0.30 <0.30 NG/ML Pro-B-Type Natriuretic Peptide 90993.0 H <125.0 PG/ML Total Protein 5.8 L 6.4-8.2 GM/DL Albumin 2.8 L 3.2-4.5 GM/DL Lipase 37 8-78 U/L My Orders Orders - SILVIA KOEHLER MD Cbc With Automated Diff (07/14/22 17:34) Magnesium (07/14/22 17:34) Chest 1 View Ap/Pa Only (07/14/22 17:34) Ekg Tracing (07/14/22 17:34) Comprehensive Metabolic Panel (07/14/22 17:34) O2 (07/14/22 17:34) Monitor-Rhythm Ecg Trace Only (07/14/22 17:34) Ed Iv/Invasive Line Start (07/14/22 17:34) Lipase (07/14/22 17:34) Troponin I Fs (07/14/22 17:34) Probnp Fs (07/14/22 17:34) Manual Differential (07/14/22 18:15) Furosemide Injection (Lasix Injection) (07/14/22 18:32) Vital Signs/I&O 07/14/22 07/14/22 07/14/22 18:15 18:15 18:23 Temp 36.4 Pulse 83 Resp 16 B/P (MAP) 180/89 (119) Pulse Ox 98 98 O2 Delivery Nasal Cannula Venturi Mask Venturi Mask O2 Flow Rate 2.00 6.00 6.00 Progress Progress Note #1: Progress Note Try to obtain basic labs and chest x-ray as well as EKG. Try to administer dose of IV Lasix to try and help with diuresis. Progress Note #2: Progress Note Labs showed mild elevation of her white blood cell count. This may be more of a stress reaction as there is no focal signs of infection. Her chemistry appear stable but she does have elevated proBNP to go along with heart failure. It is higher than when she was seen 5 days ago. Her chest x-ray shows mild amount of edema with cardiomegaly. She was feeling better after treatment with a dose of IM Lasix 80 mg x 1 here. Will prescribe continued Lasix and in order that they could titrate her oxygen up to 4 L/min if needed to treat shortness of breath and oxygen saturation under 91%. Encouraged to check back with the primary clinic and doctor about chronic management of her CHF and shortness of breath. Initial ECG Impression Date: Jul 14, 2022 Initial ECG Impression Time: 18:15 Initial ECG Rate: 81 Initial ECG Rhythm: Normal Sinus Initial ECG Comparisson: Unchanged Comment Sinus rhythm with occasional PVCs and a rate of 81 bpm. LA interval [address] elevation. QT interval 387 ms with a QTc interval 424 ms. Overall appears similar to prior tracings in the system. Diagnostic Imaging Diagonstic Imaging: Xray Plain Films/CT/US/NM/MRI: chest Comments [facility] [place], [place] NAME: [facility] REC#: [id number] PT STATUS: REG ER : 1950 PHYSICIAN: SILVIA KOEHLER MD ADMIT DATE: 07/14/22/ER FS Signed Date of Exam:07/14/22 CHEST 1 VIEW AP/PA ONLY EXAMINATION: Chest 1 view. HISTORY: Short of breath. COMPARISON: 07/09/2022. FINDINGS: Heart is enlarged. There is mild edema. No pleural effusion or pneumothorax. IMPRESSION: Enlarged heart with mild edema. Dictated by: Dictated on workstation # [id number] Dict: 07/14/221826 Trans: 07/14/221926 [id number] Interpreted by: ZAKIA ENCARNACION MD Electronically signed by: ZAKIA ENCARNACION MD 07/14/221926 Reviewed: Reviewed by Me Departure Impression Primary Impression: Chronic dyspnea Additional Impression: Acute on chronic congestive heart failure Qualified Codes: I50.9 - Heart failure, unspecified Disposition: 01 HOME, SELF-CARE Condition: Improved Departure-Patient Inst. Decision time for Depature: 20:10 Referrals: BERNADINE LUNDBERG MD (PCP/Family) Primary Care Physician Patient Instructions: Heart Failure ED, Shortness of Breath, Adult ED Add. Discharge Instructions: Take diuretic to help with fluid build up in your body from your heart not pumping as well as it should. May increase supplemental oxygen up to 4 Lpm if needed for shortness of breath. Titrate to maintain oxygen saturation greater than 91%. Follow up with primary care about fluid build up and shortness of breath to have detention treatment for your breathing. Scripts Furosemide (Furosemide) 20 Mg Tablet 20 MG PO DAILY for CHF for 30 Days, #30 TAB 0 Refills Prov: SILVIA KOEHLER MD 07/14/22 SILVIA KOEHLER MD Jul 14, 2022 17:42
[2022-07-14 18:20] LABS: BASOPHILS % (AUTO) 0 % (0-10); EOSINOPHILS # (AUTO) 0.3 10^3/uL (0.0-0.3); EOSINOPHILS % (AUTO) 2 % (0-10); HEMATOCRIT 28 % (35-52); HEMOGLOBIN 8.5 g/dL (11.5-16.0); LYMPHOCYTES # (AUTO) 0.7 10^3/uL (1.0-4.0); LYMPHOCYTES % (AUTO) 5 % (12-44); MEAN CORPUSCULAR HEMOGLOBIN 27 pg (25-34); MEAN CORPUSCULAR HGB CONC 31 g/dL (32-36); MEAN CORPUSCULAR VOLUME 88 fL (80-99); MEAN PLATELET VOLUME 10.4 fL (9.0-12.2); MONOCYTES # (AUTO) 0.7 10^3/uL (0.0-1.0); MONOCYTES % (AUTO) 5 % (0-12); NEUTROPHILS # (AUTO) 11.2 10^3/uL (1.8-7.8); NEUTROPHILS % (AUTO) 87 % (42-75); PLATELET COUNT 307 10^3/uL (130-400); WHITE BLOOD COUNT 12.9 10^3/uL (4.3-11.0)
--- NOTE | 2022-07-14 18:30 | Diagnostic Imaging Report ---
EXAMINATION: Chest 1 view. HISTORY: Short of breath. COMPARISON: 07/09/2022. FINDINGS: Heart is enlarged. There is mild edema. No pleural effusion or pneumothorax. IMPRESSION: Enlarged heart with mild edema. Dictated by: Dictated on workstation # [email or web address]
[2022-07-14] MEDS ORDERED: FUROSEMIDE 40 MG/4 ML INJ (LASIX) IM STA (18:32)
[2022-07-14 18:42] LABS: ALBUMIN 2.8 GM/DL (3.2-4.5); BILIRUBIN,TOTAL 0.3 MG/DL (0.1-1.0); CALCIUM 8.1 MG/DL (8.5-10.1); CREATININE SERUM 1.66 MG/DL (0.60-1.30); MAGNESIUM 1.8 MG/DL (1.6-2.4); POTASSIUM 5.4 MMOL/L (3.6-5.0); TOTAL PROTEIN 5.8 GM/DL (6.4-8.2)
[2022-07-14 18:52] LABS: BAND NEUTROPHILS 10 %; BASOPHILS % (MANUAL) 1 %; EOSINOPHILS % (MANUAL) 1 %; HYPOCHROMASIA 2+; LYMPHOCYTES % (MANUAL) 6 %; MICROCYTOSIS 1+; MONOCYTES % (MANUAL) 8 %; NEUTROPHILS % (MANUAL) 74 %; PLATELET ESTIMATE NORMAL
[2022-07-14] MEDS ORDERED: FURO20TA4 PO (20:14)
[2022-07-14 20:22] VITALS: BP 155/54
== END 2022-07-14 20:33 | disposition home or self-care (01) ==
LOC: EDUNIT# 17:24 → ER FS 17:25
DX: I50.9 Heart failure, unspecified (principal); I11.0 Hypertensive heart disease with heart failure; E66.9 Obesity, unspecified; E11.9 Type 2 diabetes mellitus without complications; J44.9 Chronic obstructive pulmonary disease, unspecified; D72.829 Elevated white blood cell count, unspecified; Z99.81 Dependence on supplemental oxygen; Z79.4 Long term (current) use of insulin
CPT/HCPCS: 36415; 71045; 80053; 83690; 83735; 83880; 84484; 85007; 85027; 93005; 93041; 96372

== ENCOUNTER → 2022-08-02 | Outpatient (CLI) | payer MEDICARE, MEDICAID ==
[2022-08-02 17:03] LABS: CLARITY,URINE TURBID; COLOR,URINE RED; GLUCOSE, URINE (UA) TRACE (NEGATIVE); KETONES,URINE NEGATIVE (NEGATIVE); LEUKOCYTE ESTERASE ,URINE TRACE (NEGATIVE); NITRITE,URINE POSITIVE (NEGATIVE); PH,URINE 6.5 (5-9); PROTEIN,URINE 3+ (NEGATIVE)
[2022-08-02 17:22] LABS: BACTERIA,URINE LARGE /HPF; BILIRUBIN,URINE 1+ (NEGATIVE); RBC,URINE >100 /HPF
== END ==
PROVIDERS: ATTEND Family Medicine
DX: J44.9 Chronic obstructive pulmonary disease, unspecified (principal); I50.23 Acute on chronic systolic (congestive) heart failure; R31.9 Hematuria, unspecified
CPT/HCPCS: 81000; 87088

== ENCOUNTER → 2022-08-11 | Outpatient (CLI) | payer MEDICARE, MEDICAID ==
[2022-08-11 11:46] LABS: BILIRUBIN,TOTAL 0.2 MG/DL (0.1-1.0); CALCIUM 8.4 MG/DL (8.5-10.1); CREATININE SERUM 2.26 MG/DL (0.60-1.30); POTASSIUM 5.5 MMOL/L (3.6-5.0); TOTAL PROTEIN 5.6 GM/DL (6.4-8.2)
[2022-08-11 11:47] LABS: ALBUMIN 3.3 GM/DL (3.2-4.5)
== END ==
PROVIDERS: ATTEND Family Medicine
DX: N18.9 Chronic kidney disease, unspecified (principal)
CPT/HCPCS: 80053

== ENCOUNTER 2022-09-10 16:00 | Inpatient (IN) | payer MEDICARE, MEDICAID ==
[~2022-09-10] VITALS: Ht 160 cm; Wt 134.7 kg
[~2022-09-10 16:00] MED LIST changes: +ALBU8.5H6 IH; -RT-ALBUINH IH
[2022-09-10 16:43] LABS: BASOPHILS # (AUTO) 0.1 10^3/uL (0.0-0.1); BASOPHILS % (AUTO) 1 % (0-10); EOSINOPHILS # (AUTO) 0.4 10^3/uL (0.0-0.3); EOSINOPHILS % (AUTO) 5 % (0-10); LYMPHOCYTES # (AUTO) 1.4 10^3/uL (1.0-4.0); LYMPHOCYTES % (AUTO) 16 % (12-44); MEAN CORPUSCULAR HEMOGLOBIN 26 pg (25-34); MEAN CORPUSCULAR HGB CONC 31 g/dL (32-36); MEAN CORPUSCULAR VOLUME 85 fL (80-99); MEAN PLATELET VOLUME 10.2 fL (9.0-12.2); MONOCYTES # (AUTO) 0.6 10^3/uL (0.0-1.0); MONOCYTES % (AUTO) 7 % (0-12); NEUTROPHILS % (AUTO) 70 % (42-75); PLATELET COUNT 398 10^3/uL (130-400); WHITE BLOOD COUNT 8.5 10^3/uL (4.3-11.0)
[2022-09-10 16:45] LABS: HEMATOCRIT 20 % (35-52); HEMOGLOBIN 6.2 g/dL (11.5-16.0)
--- NOTE | 2022-09-10 16:58 | ED General ---
General Chief Complaint: Cardiac/General Problems Stated Complaint: LOW HEMOGLOBIN Nursing Triage Note: Patient presents to the ED from [facility] with c/o low hemoglobin. Staff from facility report hgb level of 5.3. Patient does have a history of anemia. Patient states that she is feeling more fatigued then usual. Source of Information: Patient, EMS, Jail Records, Old Records Exam Limitations: No Limitations History of Present Illness Date Seen by Provider: Sep 10, 2022 Time Seen by Provider: 16:01 Initial Comments This is 71-year-old woman is brought to the emergency room by [facility] staff with complaints of hemoglobin of 5.3 as identified by lab drawn at the clinic. She complains of feeling more fatigued than usual. She has not noted any source of blood loss. She is on Plavix for coronary artery disease but is not anticoagulated. She has history of chronic anemia but denies needing transfusion in the past. She has history of chronic kidney disease, diabetes, congestive heart failure, COPD, and coronary artery disease. She normally uses supplemental oxygen at 2 L/min via nasal cannula. Today she is running her oxygen at 3 to 4 L/min. Allergies and Home Medications Allergies Coded Allergies: ceftriaxone (Verified Allergy, Intermediate, N/V/D, 04/18/22) adhesive tape (Unverified Allergy, Unknown, 12/24/19) codeine (Verified Allergy, Unknown, Nausea, 06/17/22) morphine (Verified Allergy, Unknown, Nausea, 06/17/22) penicillin G (Verified Allergy, Unknown, 12/24/19) Patient Home Medication List Home Medication List Reviewed: Yes Acetaminophen (Tylenol Extra Strength) 500 Mg Tablet, 500 MG PO Q8H PRN for PAIN-MILD (1-4), (Reported) Entered as Reported by: BRAXTON STYLES on 04/19/22 1347 Albuterol Sulfate (Ventolin Hfa) 1 Puff Puff, 2 PUFF IH Q4H PRN for SHORTNESS OF BREATH, (Reported) Entered as Reported by: BASHIR SALEH on 09/15/21 1043 Aspirin (Aspirin) 81 Mg Tab.chew, 81 MG PO DAILY, (Reported) Entered as Reported by: BASHIR SALEH on 06/18/22 1242 Atorvastatin Calcium (Atorvastatin Calcium) 10 Mg Tablet, 10 MG PO HS, (Reported) Entered as Reported by: BASHIR SALEH on 06/18/22 1242 Carvedilol (Carvedilol) 6.25 Mg Tablet, 6.25 MG PO BID, (Reported) Entered as Reported by: BRAXTON STYLES on 04/19/22 1344 Clopidogrel Bisulfate (Plavix) 75 Mg Tablet, 75 MG PO DAILY, (Reported) Entered as Reported by: BASHIR SALEH on 06/18/22 1242 Furosemide (Lasix) 20 Mg Tablet, 20 MG PO DAILY Prescribed by: SAE FAUST on 07/09/22 1437 Furosemide (Furosemide) 20 Mg Tablet, 20 MG PO DAILY Prescribed by: SILVIA KOEHLER on 07/14/222013 Gabapentin (Neurontin) 300 Mg Capsule, 300 MG PO DAILY, (Reported) Entered as Reported by: BRAXTON STYLES on 04/19/22 134 Gabapentin (Neurontin) 300 Mg Capsule, 600 MG PO HS, (Reported) Entered as Reported by: BRAXTON STYLES on 04/19/22 134 Insulin Aspart (Novolog) 100 Unit/Ml Cartridge, 14 UNITS SQ TIDAC, (Reported) Entered as Reported by: BRAXTON STYLES on 04/19/22 134 Insulin Determir (Levemir) 100 Unit/Ml Soln, 20 UNITS SQ HS, (Reported) Entered as Reported by: BASHIR SALEH on 06/18/22 124 Levofloxacin (Levofloxacin) 500 Mg Tablet, 500 MG PO DAILY Prescribed by: SAE FAUST on 07/09/22 1437 Levothyroxine Sodium (Levothyroxine) 125 Mcg Capsule, 125 MCG PO DAILY, (Reported) Entered as Reported by: BRAXTON STYLES on 04/19/22 1344 Losartan Potassium (Losartan Potassium) 100 Mg Tablet, 100 MG PO DAILY Prescribed by: ODILON SOSA on 06/25/22 1008 Nystatin (Nystatin) 100,000 Unit/Ml Oral.susp, 5 ML PO QID Prescribed by: ODILON SOSA on 06/25/22 1008 Venlafaxine HCl (Venlafaxine HCl) 37.5 Mg Tab, 37.5 MG PO TID, (Reported) Entered as Reported by: BRAXTON STYLES on 04/19/22 1346 Zolpidem Tartrate (Zolpidem Tartrate) 5 Mg Tablet, 2.5-5 MG PO HS PRN for SLEEP, (Reported) Entered as Reported by: BRAXTON STYLES on 04/19/22 0490 Review of Systems Review of Systems Constitutional: see HPI, weakness, other (Fatigue) EENTM: no symptoms reported Respiratory: see HPI Past Jmaxwvk-Ztebig-Cegeff Hx Patient Social History Tobacco Use?: No Use of E-Cig and/or Vaping dev: No Substance use?: No Alcohol Use?: No Pt feels they are or have been: No Immunizations Up To Date First/Initial COVID19 Vaccinat: Moderna Second COVID19 Vaccination Alok: Moderna Third COVID19 Vaccination Date: Seasonal Allergies Seasonal Allergies: No Past Medical History Surgery/Hospitalization HX: IDDM;left mastectomy; lymphadema; COPD; CAD; CKD; Hyperlipidemia; Obesity; HTN; Hypthyroidism; Aortic valve stenosis; Type 2 DM; Anemia Surgeries: Yes (R Masectomy, R Augmentation, ) Gallbladder, Hysterectomy, Orthopedic, Thyroidectomy Respiratory: Yes COPD (Uses O2 via NC at 2 lpm) Cardiac: Yes (Congestive heart failure) Chronic Edema/Swelling (Lymphedema of left upper extremity), Coronary Artery Disease, High Cholesterol, Hypertension, Valvular Heart Disease Neurological: No 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 Disorders: No 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 Genitourinary: Yes Renal Failure (Chronic kidney disease) Gastrointestinal: No Musculoskeletal: Yes (ARTHRITIS) Arthritis Endocrine: Yes Diabetes, Insulin dep, Hypothyroidsim HEENT: No Cancer: Yes Breast, Lymphoma Did You Recieve Any Treatments: Yes What Type of Treatment Did You: Surgical Intervention Psychosocial: No Integumentary: No Blood Disorders: No Family Medical History Cancer Physical Exam Vital Signs Vital Signs - First Documented 09/10/22 09/10/22 16:14 19:20 Temp 35.8 Pulse 60 Resp 18 B/P (MAP) 186/63 (104) Pulse Ox 100 O2 Delivery Nasal Cannula O2 Flow Rate 4.00 Capillary Refill : Less Than 3 Seconds Height, Weight, BMI Height: '" Weight: lbs. oz. kg; BMI Method: General Appearance: No Apparent Distress, WD/WN, Obese HEENT: PERRL/EOMI, Normal ENT Inspection Neck: Normal Inspection; No JVD Respiratory: Lungs Clear, No Accessory Muscle Use; No Crackles; Decreased Breath Sounds Cardiovascular: Regular Rate, Rhythm, No Murmur, Other (Mild to moderate lower extremity edema equal bilaterally. Lymphedema of the left upper extremity) Gastrointestinal: Non Tender, Soft Extremity: Normal Inspection, Non Tender, Other (Mild to moderate edema of the lower extremities bilaterally and significant lymphedema of the left upper extremity) Neurologic/Psychiatric: Alert, Oriented x3, No Motor/Sensory Deficits, Normal Mood/Affect Skin: Warm/Dry, Pallor Progress/Results/Core Measures Suspected Sepsis SIRS Temperature: Pulse: 60 Respiratory Rate: 18 Laboratory Tests 09/10/22 16:21: White Blood Count 8.5 Blood Pressure 186 /63 Mean: 104 Laboratory Tests 09/10/22 16:21: Creatinine 2.29H, Platelet Count 398 Results/Orders Lab Results Laboratory Tests Test 09/10/22 16:21 09/10/22 17:56 Range/Units White Blood Count 8.5 4.3-11.0 10^3/uL Red Blood Count 2.37 L 3.80-5.11 10^6/uL Hemoglobin 6.2 *L 11.5-16.0 g/dL Hematocrit 20 *L 35-52 % Mean Corpuscular Volume 85 80-99 fL Mean Corpuscular Hemoglobin 26 25-34 pg Mean Corpuscular Hemoglobin Concent 31 L 32-36 g/dL Red Cell Distribution Width 15.3 H 10.0-14.5 % Platelet Count 398 130-400 10^3/uL Mean Platelet Volume 10.2 9.0-12.2 fL Immature Granulocyte % (Auto) 0 % Neutrophils (%) (Auto) 70 42-75 % Lymphocytes (%) (Auto) 16 12-44 % Monocytes (%) (Auto) 7 0-12 % Eosinophils (%) (Auto) 5 0-10 % Basophils (%) (Auto) 1 0-10 % Neutrophils # (Auto) 6.0 1.8-7.8 10^3/uL Lymphocytes # (Auto) 1.4 1.0-4.0 10^3/uL Monocytes # (Auto) 0.6 0.0-1.0 10^3/uL Eosinophils # (Auto) 0.4 H 0.0-0.3 10^3/uL Basophils # (Auto) 0.1 0.0-0.1 10^3/uL Immature Granulocyte # (Auto) 0.0 0.0-0.1 10^3/uL Sodium Level 142 135-145 MMOL/L Potassium Level 5.0 3.6-5.0 MMOL/L Chloride Level 103 98-107 MMOL/L Carbon Dioxide Level 31 21-32 MMOL/L Anion Gap 8 5-14 MMOL/L Blood Urea Nitrogen 88 H 7-18 MG/DL Creatinine 2.29 H 0.60-1.30 MG/DL Estimat Glomerular Filtration Rate 23 BUN/Creatinine Ratio 38 Glucose Level 78 70-105 MG/DL Calcium Level 8.6 8.5-10.1 MG/DL Magnesium Level 2.3 1.6-2.4 MG/DL C-Reactive Protein 4.54 H <0.50 MG/DL Pro-B-Type Natriuretic Peptide 55650.0 H <125.0 PG/ML Influenza Type A (RT-PCR) Not Detected Not Detecte Influenza Type B (RT-PCR) Not Detected Not Detecte SARS-CoV-2 RNA (RT-PCR) Not Detected Not Detecte My Orders Orders - CARLOS LARA MD Basic Metabolic Panel (09/10/22 16:23) Cbc With Automated Diff (09/10/22 16:23) Magnesium (09/10/22 16:23) Ed Iv/Invasive Line Start (09/10/22 16:23) Ed Admission (Communication) (09/10/22 17:30) Probnp Fs (09/10/22 17:44) Crp Fs (09/10/22 17:44) Covid 19 Inhouse Test (09/10/22 17:44) Influenza A And B By Pcr (09/10/22 17:44) Albuterol Inhaler (Albuterol) (09/10/22 18:00) Code/Resuscitation (09/10/22 17:48) Chest 1 View Ap/Pa Only (09/10/22 17:48) Medications Given in ED Current Medications Medications Dose Ordered Sig/Francy Route Start Time Stop Time Status Last Admin Dose Admin Albuterol Sulfate 4 PUFFS RTQ4HR ONCE IH 09/10/22 18:00 09/10/22 18:01 DC 09/10/22 18:42 8.5 GM Vital Signs/I&O 09/10/22 09/10/22 16:14 19:20 Temp 35.8 Pulse 60 59 Resp 18 18 B/P (MAP) 186/63 (104) 160/70 Pulse Ox 100 99 O2 Delivery Nasal Cannula Nasal Cannula O2 Flow Rate 4.00 Capillary Refill : Less Than 3 Seconds Blood Pressure Mean: 104 Progress Note #1: Time: 17:05 Progress Note Hemoglobin is 6.2 on our blood draw. Patient has significant history of chronic kidney disease, coronary artery disease, and other comorbidities. She likely will need 2 units of PRBC transfused slowly to achieve hemoglobin goals for these chronic diseases. Dr. Patel will admit the patient in [place] for transfusion if renal function will allow. Progress Note #2: Time: 18:08 Progress Note Upon further discussion with the patient, she was noted to be coughing. I asked again about respiratory symptoms, and she reported new cough for the past 3-4 days. Additional work-up with chest x-ray, BNP, CRP, and viral swabs is being obtained. She is wheezing more as well and albuterol was ordered. Dr. Patel updated. Progress Note #3: Progress Note Chest x-ray and additional labs revealed no source for her cough. Diagnostic Imaging Diagonstic Imaging: Xray Plain Films/CT/US/NM/MRI: chest Comments NAME: [facility] REC#: [id number] PT STATUS: REG ER : 1950 PHYSICIAN: CARLOS LARA MD ADMIT DATE: 09/10/22/ER FS Signed Date of Exam:09/10/22 CHEST 1 VIEW AP/PA ONLY EXAMINATION: Chest 1 view. HISTORY: Respiratory distress. COMPARISON: 07/14/2022. FINDINGS: The lung volumes are normal. No focal consolidation is seen. No large pleural effusion or pneumothorax is seen. The cardiomediastinal silhouette is prominent. No acute osseous abnormality is seen. IMPRESSION: Cardiomegaly. No overt pulmonary edema. Dictated by: Dictated on workstation # [id number] Dict: 09/10/221906 Trans: 09/10/221908 [facility] [id number] Interpreted by: FERANNDO GONZALEZ DO Electronically signed by: FERNANDO GONZALEZ DO 09/10/221908 Departure Communication (Admissions) Time/Spoke to Admitting Phy: 17:00 Dr. Patel Impression Primary Impression: Severe anemia Additional Impressions: Fatigue Qualified Codes: R53.83 - Other fatigue Chronic kidney disease Qualified Codes: N18.9 - Chronic kidney disease, unspecified Cough Qualified Codes: R05.1 - Acute cough Disposition: 30 STILL A PATIENT Condition: Stable Admissions Decision to Admit Reason: Admit from ER (General) Decision to Admit/Date: Sep 10, 2022 Time/Decision to Admit Time: 17:00 Transfer Transfer Reason: Exceeds level of care Time Spoke to Accepting Phy: 17:00 Transfer Facility: [facility] Method of Transfer: EMS Departure-Patient Inst. Referrals: BERNADINE LUNDBERG MD (PCP/Family) Primary Care Physician Copy Copies To 1: BERNADINE LUNDBERG MD, JOSHUA T MD Sep 10, 2022 16:58
[2022-09-10 17:14] LABS: CALCIUM 8.6 MG/DL (8.5-10.1); CREATININE SERUM 2.29 MG/DL (0.60-1.30); MAGNESIUM 2.3 MG/DL (1.6-2.4)
[2022-09-10] MEDS ORDERED: RT-ALBUTEROL HFA 8.5 GM INHALER IH ONE (18:00)
--- NOTE | 2022-09-10 19:09 | Diagnostic Imaging Report ---
EXAMINATION: Chest 1 view. HISTORY: Respiratory distress. COMPARISON: 07/14/2022. FINDINGS: The lung volumes are normal. No focal consolidation is seen. No large pleural effusion or pneumothorax is seen. The cardiomediastinal silhouette is prominent. No acute osseous abnormality is seen. IMPRESSION: Cardiomegaly. No overt pulmonary edema. Dictated by: Dictated on workstation # [id number]
[2022-09-10] MEDS ORDERED: ONDANSETRON 4 MG (ZOFRAN) ORAL DISSOLVE TAB PO PRN (21:00)
[2022-09-10] MEDS ORDERED: NALOXONE 0.4 MG/ML 1 ML (NARCAN) VIAL IV PRN (21:00)
[2022-09-10] MEDS ORDERED: diphenhydrAMINE 50 MG/ML INJ (BENADRYL) IVP PRN (21:00)
[2022-09-10] MEDS ORDERED: HYDROmorphone 2 MG/ML VIAL (DILAUDID) IV PRN (21:00)
[2022-09-10] MEDS ORDERED: ANTACID SUSP 30 ML UDC (MYLANTA) PO PRN (21:00)
[2022-09-10] MEDS ORDERED: ONDANSETRON 4 MG/2 ML (SDV) Z0FRAN IV PRN (21:00)
[2022-09-10] MEDS ORDERED: polyethylene glycoL POWDER 17 GM (MIRALAX) PACK PO PRN (21:00)
[2022-09-10] MEDS ORDERED: NS IV 500 ML 500 ML IV SCH ×2 (21:00)
[2022-09-10] MEDS ORDERED: ACETAMINOPHEN 325 MG TABLET PO PRN (21:00)
[2022-09-10] MEDS ORDERED: diphenhydrAMINE 25 MG TAB (BENADRYL) PO PRN (21:00)
[2022-09-10] MEDS ORDERED: MELATONIN 3 MG TABLET PO PRN (21:00)
[2022-09-10] MEDS ORDERED: BISACODYL 10 MG SUPP (DULCOLAX) PR PRN (21:00)
[2022-09-10] MEDS ORDERED: FUROSEMIDE 40 MG/4 ML INJ (LASIX) IVP ONE (21:30)
[2022-09-10 22:28] VITALS: BP 149/63
[2022-09-10 22:42] VITALS: BP 141/60
[2022-09-10] MEDS: inSUlin ASPART (NovoLOG) 1 UNIT/0.01 ML (CHARGE PER UNIT) SC SCH (22:48)
[2022-09-10] MEDS: DOCUSATE SODIUM 100 MG (COLACE) CAP PO SCH (22:54)
[2022-09-11] VITALS (11 sets, daily range): BP systolic 123–186; BP diastolic 58–77
[2022-09-11] MEDS: RT-ALBUTEROL SULF 2.5 MG/3 ML PRE-MIX VIAL INH SCH ×4 (03:12→21:04)
[2022-09-11 06:00] LABS: BASOPHILS # (AUTO) 0.1 10^3/uL (0.0-0.1); BASOPHILS % (AUTO) 1 % (0-10); EOSINOPHILS # (AUTO) 0.4 10^3/uL (0.0-0.3); EOSINOPHILS % (AUTO) 6 % (0-10); HEMATOCRIT 23 % (35-52); HEMOGLOBIN 7.1 g/dL (11.5-16.0); LYMPHOCYTES # (AUTO) 1.3 10^3/uL (1.0-4.0); LYMPHOCYTES % (AUTO) 17 % (12-44); MEAN CORPUSCULAR HEMOGLOBIN 27 pg (25-34); MEAN CORPUSCULAR HGB CONC 32 g/dL (32-36); MEAN CORPUSCULAR VOLUME 85 fL (80-99); MEAN PLATELET VOLUME 10.1 fL (9.0-12.2); MONOCYTES # (AUTO) 0.6 10^3/uL (0.0-1.0); MONOCYTES % (AUTO) 8 % (0-12); NEUTROPHILS # (AUTO) 5.2 10^3/uL (1.8-7.8); NEUTROPHILS % (AUTO) 68 % (42-75); PLATELET COUNT 324 10^3/uL (130-400); WHITE BLOOD COUNT 7.6 10^3/uL (4.3-11.0)
[2022-09-11] MEDS: inSUlin ASPART (NovoLOG) 1 UNIT/0.01 ML (CHARGE PER UNIT) SC SCH ×4 (06:08→21:22)
[2022-09-11 06:12] LABS: ALBUMIN 2.9 GM/DL (3.2-4.5)
[2022-09-11 06:13] LABS: POTASSIUM 4.7 MMOL/L (3.6-5.0)
[2022-09-11 06:14] LABS: CALCIUM 8.3 MG/DL (8.5-10.1)
[2022-09-11 06:15] LABS: TOTAL PROTEIN 5.7 GM/DL (6.4-8.2)
[2022-09-11 06:17] LABS: BILIRUBIN,TOTAL 1.2 MG/DL (0.1-1.0)
[2022-09-11 06:19] LABS: CREATININE SERUM 2.35 MG/DL (0.60-1.30)
[2022-09-11] MEDS: DOCUSATE SODIUM 100 MG (COLACE) CAP PO SCH ×2 (09:41→21:20)
[2022-09-11] MEDS: CLOPIDOGREL 75 MG (PLAVIX) TABLET PO SCH (09:41)
[2022-09-11] MEDS: PANTOPRAZOLE 40 MG (PROTONIX) VIAL IV SCH ×2 (09:42→21:21)
[2022-09-11] MEDS: LACTATED RINGERS 1,000 ML IV SCH (09:49)
--- NOTE | 2022-09-11 11:55 | Consultation - Surgery ---
[facility] 09[facility]22 1155: History of Present Illness History of Present Illness Patient Consulted On(kita/time) 09/11/22 11:50 Date Seen by Provider: Sep 11, 2022 Time Seen by Provider: 11:[address] History [address] Aranda requested consult for anemia. Dannielle is a 71 y F with PMH of CAD, CKD, CHF who presented to the ED last night from [facility] who reported a hgb reading there of 5.3. Labs at ED revealed hgb of 6.2, she was given 2 units of PRBC and hgb evans to 7.4. Her Plavix is currently being held. Today she is not well oriented and is a poor historian. Denies ever having had colonoscopy or EGD and is unsure if she has blood in her BM. She has a chronic perry catheter. Denies abdominal pain, SOB, CP, nausea, vomiting, sweats, chills. Allergies and Home Medications Allergies Coded Allergies: ceftriaxone (Verified Allergy, Intermediate, N/V/D, 04/18/22) adhesive tape (Unverified Allergy, Unknown, 12/24/19) codeine (Verified Allergy, Unknown, Nausea, 06/17/22) morphine (Verified Allergy, Unknown, Nausea, 06/17/22) penicillin G (Verified Allergy, Unknown, 12/24/19) Patient Home Medication List Home Medication List Reviewed: Yes Acetaminophen (Tylenol Extra Strength) 500 Mg Tablet, 500 MG PO Q8H PRN for PAIN-MILD (1-4), (Reported) Entered as Reported by: BRAXTON STYLES on 04/19/22 1347 Last Action: Held Albuterol Sulfate (Ventolin Hfa) 1 Puff Puff, 2 PUFF IH Q4H PRN for SHORTNESS OF BREATH, (Reported) Entered as Reported by: BASHIR SALEH on 09/15/21 1043 Last Action: Held Aspirin (Aspirin) 81 Mg Tab.chew, 81 MG PO DAILY, (Reported) Entered as Reported by: BASHIR SALEH on 06/18/22 1242 Last Action: Held Atorvastatin Calcium (Atorvastatin Calcium) 10 Mg Tablet, 10 MG PO HS, (Reported) Entered as Reported by: BASHIR SALEH on 06/18/22 1242 Last Action: Continued Carvedilol (Carvedilol) 6.25 Mg Tablet, 6.25 MG PO BID, (Reported) Entered as Reported by: BRAXTON STYLES on 04/19/221343 Last Action: Continued Clopidogrel Bisulfate (Plavix) 75 Mg Tablet, 75 MG PO DAILY, (Reported) Entered as Reported by: BASHIR SALEH on 06/18/221241 Last Action: Continued Furosemide (Lasix) 20 Mg Tablet, 20 MG PO DAILY Prescribed by: SAE FAUST on 07/09/221436 Last Action: Held Furosemide (Furosemide) 20 Mg Tablet, 20 MG PO DAILY Prescribed by: SILVIA KOEHLER on 07/14/222013 Last Action: Held Gabapentin (Neurontin) 300 Mg Capsule, 300 MG PO DAILY, (Reported) Entered as Reported by: BRAXTON STYLES on 04/19/221344 Last Action: Continued Gabapentin (Neurontin) 300 Mg Capsule, 600 MG PO HS, (Reported) Entered as Reported by: BRAXTON STYLES on 04/19/221345 Last Action: Continued Insulin Aspart (Novolog) 100 Unit/Ml Cartridge, 14 UNITS SQ TIDAC, (Reported) Entered as Reported by: BRAXTON STYLES on 04/19/221347 Last Action: Held Insulin Determir (Levemir) 100 Unit/Ml Soln, 20 UNITS SQ HS, (Reported) Entered as Reported by: BASHIR SALEH on 06/18/221241 Last Action: Held Levofloxacin (Levofloxacin) 500 Mg Tablet, 500 MG PO DAILY Prescribed by: SAE FAUST on 07/09/221436 Last Action: Held Levothyroxine Sodium (Levothyroxine) 125 Mcg Capsule, 125 MCG PO DAILY, (Reported) Entered as Reported by: BRAXTON STYLES on 04/19/221343 Last Action: Converted Losartan Potassium (Losartan Potassium) 100 Mg Tablet, 100 MG PO DAILY Prescribed by: ODILON SOSA on 06/25/221007 Last Action: Held Nystatin (Nystatin) 100,000 Unit/Ml Oral.susp, 5 ML PO QID Prescribed by: ODILON SOSA on 06/25/221007 Last Action: Held Venlafaxine HCl (Venlafaxine HCl) 37.5 Mg Tab, 37.5 MG PO TID, (Reported) Entered as Reported by: BRAXTON STYLES on 6/27/22 1346 Last Action: Continued Zolpidem Tartrate (Zolpidem Tartrate) 5 Mg Tablet, 2.5-5 MG PO HS PRN for SLEEP, (Reported) Entered as Reported by: BRAXTON STYLES on 04/19/22 1340 Last Action: Held Past Aaugekl-Quyqrt-Nmqnzw Hx Patient Social History 2nd Hand Smoke Exposure: No Recent Hopitalizations: No Alcohol Use?: No Have you traveled recently?: No Immunizations Up To Date Date of Influenza Vaccine: Sep 28, 2019 Seasonal Allergies Seasonal Allergies: No Surgeries History of Surgeries: Yes (R Masectomy, R Augmentation, ) Surgeries: Gallbladder, Hysterectomy, Orthopedic, Thyroidectomy Respiratory History of Respiratory Disorde: Yes Respiratory Disorders: COPD (Uses O2 via NC at 2 lpm) Cardiovascular History of Cardiac Disorders: Yes (Congestive heart failure) Cardiac Disorders: Chronic Edema/Swelling (Lymphedema of left upper extremity), Coronary Artery Disease, High Cholesterol, Hypertension, Valvular Heart Disease Neurological History of Neurological Disord: No 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 System Hx 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 Disorders: No TECHNICAL FELLOW History: Hysterectomy Genitourinary History of Genitourinary Disor: Yes Genitourinary Disorders: Renal Failure (Chronic kidney disease) Gastrointestinal History of Gastrointestinal Di: No Musculoskeletal History of Musculoskeletal Dis: Yes (ARTHRITIS) Musculoskeletal Disorders: Arthritis Endocrine History of Endocrine Disorders: Yes Endocrine Disorders: Diabetes, Insulin dep, Hypothyroidsim HEENT History of HEENT Disorders: No Cancer History of Cancer: Yes Cancer: Breast, Lymphoma Psychosocial History of Psychiatric Problem: No Integumentary History of Skin or Integumenta: No Blood Transfusions History of Blood Disorders: No Family Medical History Significant Family History: Cancer Review of Systems-General Constitutional: No chills, No diaphoresis EENTM: No ear discharge, No hearing loss Respiratory: No cough, No dyspnea on exertion Cardiovascular: No chest pain; edema Gastrointestinal: No abdominal pain, No constipation Genitourinary: No decreased output, No discharge Musculoskeletal: No back pain, No gout Skin: No change in color, No change in hair/nails Psychiatric/Neurological: Denies Anxiety, Denies Depressed All Other Systems Reviewed Negative Unless Noted: Yes (Negative excepted noted.) Physical Exam-General Problems Physical Exam Vital Signs Vital Signs - First Documented 09/10/22 09/10/22 16:14 19:20 Temp 35.8 Pulse 60 Resp 18 B/P (MAP) 186/63 (104) Pulse Ox 100 O2 Delivery Nasal Cannula O2 Flow Rate 4.00 Capillary Refill : Less Than 3 Seconds General Appearance: no apparent distress, obese HEENT: PERRL/EOMI, pharynx normal Neck: non-tender, full range of motion Respiratory: chest non-tender, no respiratory distress, no accessory muscle use Cardiovascular: normal peripheral pulses, no JVD Peripheral Pulses: 2+ Radial Pulses (R), 2+ Radial Pulses (L) Gastrointestinal: non tender, soft Rectal: deferred Back: normal inspection, no CVA tenderness Extremities: non-tender, pedal edema, swelling, other (chronic skin changes b/l) Neurologic/Psychiatric: alert, normal mood/affect, disoriented x 3 Skin: normal color, warm/dry Lymphatic: no adenopathy Data Review Labs Laboratory Tests 09/10/22 16:21: White Blood Count 8.5, Red Blood Count 2.37L, Hemoglobin 6.2*L, Hematocrit 20*L, Mean Corpuscular Volume 85, Mean Corpuscular Hemoglobin 26, Mean Corpuscular Hemoglobin Concent 31L, Red Cell Distribution Width 15.3H, Platelet Count 398, Mean Platelet Volume 10.2, Immature Granulocyte % (Auto) 0, Neutrophils (%) (Auto) 70, Lymphocytes (%) (Auto) 16, Monocytes (%) (Auto) 7, Eosinophils (%) (Auto) 5, Basophils (%) (Auto) 1, Neutrophils # (Auto) 6.0, Lymphocytes # (Auto) 1.4, Monocytes # (Auto) 0.6, Eosinophils # (Auto) 0.4H, Basophils # (Auto) 0.1, Immature Granulocyte # (Auto) 0.0, Sodium Level 142, Potassium Level 5.0, Chloride Level 103, Carbon Dioxide Level 31, Anion Gap 8, Blood Urea Nitrogen 88H, Creatinine 2.29H, Estimat Glomerular Filtration Rate 23, BUN/Creatinine Ratio 38, Glucose Level 78, Calcium Level 8.6, Magnesium Level 2.3, C-Reactive Protein 4.54H, Pro-B-Type Natriuretic Peptide 44469.0H 09/10/22 17:56: Influenza Type A (RT-PCR) Not Detected, Influenza Type B (RT-PCR) Not Detected, SARS-CoV-2 RNA (RT-PCR) Not Detected 09/10/22 21:09: Glucometer 82 09/11/22 05:36: Glucometer 182H 09/11/22 05:52: White Blood Count 7.6, Red Blood Count 2.65L, Hemoglobin 7.1L, Hematocrit 23L, Mean Corpuscular Volume 85, Mean Corpuscular Hemoglobin 27, Mean Corpuscular Hemoglobin Concent 32, Red Cell Distribution Width 14.9H, Platelet Count 324, Mean Platelet Volume 10.1, Immature Granulocyte % (Auto) 1, Neutrophils (%) (Auto) 68, Lymphocytes (%) (Auto) 17, Monocytes (%) (Auto) 8, Eosinophils (%) (Auto) 6, Basophils (%) (Auto) 1, Neutrophils # (Auto) 5.2, Lymphocytes # (Auto) 1.3, Monocytes # (Auto) 0.6, Eosinophils # (Auto) 0.4H, Basophils # (Auto) 0.1, Immature Granulocyte # (Auto) 0.1, Sodium Level 142, Potassium Level 4.7, Chloride Level 100, Carbon Dioxide Level 28, Anion Gap 14, Blood Urea Nitrogen 90H, Creatinine 2.35H, Estimat Glomerular Filtration Rate 22, BUN/Creatinine Ratio 38, Glucose Level 207H, Calcium Level 8.3L, Corrected Calcium 9.2, Total B ilirubin 1.2H, Aspartate Amino Transf (AST/SGOT) 36H, Alanine Aminotransferase (ALT/SGPT) 38, Alkaline Phosphatase 304H, Total Protein 5.7L, Albumin 2.9L 09/11/22 09:05: Hemoglobin 7.4L 09/11/22 10:42: Glucometer 222H Radiology [facility], [place] NAME: DANNIELLE TOLENTINO [facility] REC#: [id number] PT STATUS: REG ER : 1950 PHYSICIAN: CARLOS LARA MD ADMIT DATE: 09/10/22/ER FS Signed Date of Exam:09/10/22 CHEST 1 VIEW AP/PA ONLY EXAMINATION: Chest 1 view. HISTORY: Respiratory distress. COMPARISON: 07/14/2022. FINDINGS: The lung volumes are normal. No focal consolidation is seen. No large pleural effusion or pneumothorax is seen. The cardiomediastinal silhouette is prominent. No acute osseous abnormality is seen. IMPRESSION: Cardiomegaly. No overt pulmonary edema. Dictated by: Dictated on workstation # [id number] Dict: 09/10/221906 Trans: 09/10/221908 [facility] [id number] Interpreted by: FERNANDO GONZALEZ DO Electronically signed by: FERNANDO GONZALEZ DO 09/10/221908 Assessment/Plan Assessment/Plan Assessment/Plan anemia possible GI bleed CAD, CKD track and trend hgb/hct, transfuse as necessary - has received 2 units PRBC thus far iron studies and fecal occult pending continue to hold plavix unable to perform colonoscopy at this time given anticoagulation, will consider outpatient colonoscopy if unable to obtain this stay Clinical Quality Measures DVT/VTE Risk/Contraindication: Contraindications-Pharm: Other *list below* Other: anemia MODESTA VENTURA DO 09/11/22 1612: History of Present Illness History of Present Illness History of Present Illness Consult requested by Dr. Aranda for anemia. Patient is a 71-year-old female who is a very poor historian. She lives at [facility] in [place]. But tells me she lives at home with her . Patient was found to have a hemoglobin of 5.3 and taken to the emergency department for further evaluation and work-up. She is received 2 units of packed red blood cells and her hemoglobin is up to 7.4. She is typically on Plavix which is on hold at this time. She has no abdominal pain. She has no nausea or vomiting. No reported blood in her stools. No family or caregivers present with her. Allergies and Home Medications Allergies Coded Allergies: ceftriaxone (Verified Allergy, Intermediate, N/V/D, 04/18/22) adhesive tape (Unverified Allergy, Unknown, 12/24/19) codeine (Verified Allergy, Unknown, Nausea, 06/17/22) morphine (Verified Allergy, Unknown, Nausea, 06/17/22) penicillin G (Verified Allergy, Unknown, 12/24/19) Patient Home Medication List Home Medication List Reviewed: Yes Acetaminophen (Tylenol Extra Strength) 500 Mg Tablet, 500 MG PO Q8H PRN for PAIN-MILD (1-4), (Reported) Entered as Reported by: BRAXTON STYLES on 04/19/22 1347 Last Action: Held Albuterol Sulfate (Ventolin Hfa) 1 Puff Puff, 2 PUFF IH Q4H PRN for SHORTNESS OF BREATH, (Reported) Entered as Reported by: BASHIR SALEH on 09/15/21 1043 Last Action: Held Aspirin (Aspirin) 81 Mg Tab.chew, 81 MG PO DAILY, (Reported) Entered as Reported by: BASHIR SALEH on 06/18/22 124 Last Action: Held Atorvastatin Calcium (Atorvastatin Calcium) 10 Mg Tablet, 10 MG PO HS, (Reported) Entered as Reported by: BASHIR SALEH on 06/18/22 124 Last Action: Continued Carvedilol (Carvedilol) 6.25 Mg Tablet, 6.25 MG PO BID, (Reported) Entered as Reported by: BRAXTON STYLES on 04/19/22 134 Last Action: Continued Clopidogrel Bisulfate (Plavix) 75 Mg Tablet, 75 MG PO DAILY, (Reported) Entered as Reported by: BASHIR SALEH on 06/18/22 124 Last Action: Continued Furosemide (Lasix) 20 Mg Tablet, 20 MG PO DAILY Prescribed by: SAE FAUST on 07/09/22 143 Last Action: Held Furosemide (Furosemide) 20 Mg Tablet, 20 MG PO DAILY Prescribed by: SILVIA KOEHLER on 07/14/222013 Last Action: Held Gabapentin (Neurontin) 300 Mg Capsule, 300 MG PO DAILY, (Reported) Entered as Reported by: BRAXTON STYLES on 04/19/22 134 Last Action: Continued Gabapentin (Neurontin) 300 Mg Capsule, 600 MG PO HS, (Reported) Entered as Reported by: BRAXTON STYLES on 04/19/22 134 Last Action: Continued Insulin Aspart (Novolog) 100 Unit/Ml Cartridge, 14 UNITS SQ TIDAC, (Reported) Entered as Reported by: BRAXTON STYLES on 04/19/22 134 Last Action: Held Insulin Determir (Levemir) 100 Unit/Ml Soln, 20 UNITS SQ HS, (Reported) Entered as Reported by: BASHIR SALEH on 06/18/22 124 Last Action: Held Levofloxacin (Levofloxacin) 500 Mg Tablet, 500 MG PO DAILY Prescribed by: SAE FAUST on 07/09/22 1437 Last Action: Held Levothyroxine Sodium (Levothyroxine) 125 Mcg Capsule, 125 MCG PO DAILY, (Reported) Entered as Reported by: BRAXTON STYLES on 04/19/221343 Last Action: Converted Losartan Potassium (Losartan Potassium) 100 Mg Tablet, 100 MG PO DAILY Prescribed by: ODILON SOSA on 06/25/221007 Last Action: Held Nystatin (Nystatin) 100,000 Unit/Ml Oral.susp, 5 ML PO QID Prescribed by: ODILON SOSA on 06/25/221007 Last Action: Held Venlafaxine HCl (Venlafaxine HCl) 37.5 Mg Tab, 37.5 MG PO TID, (Reported) Entered as Reported by: BRAXTON STYLES on 04/19/221345 Last Action: Continued Zolpidem Tartrate (Zolpidem Tartrate) 5 Mg Tablet, 2.5-5 MG PO HS PRN for SLEEP, (Reported) Entered as Reported by: BRAXTON STYLES on 04/19/221343 Last Action: Held Review of Systems-General Constitutional: No chills, No diaphoresis EENTM: No ear discharge, No hearing loss Respiratory: No cough, No dyspnea on exertion Cardiovascular: No chest pain; edema Gastrointestinal: No abdominal pain, No constipation Genitourinary: No decreased output, No discharge Musculoskeletal: No back pain, No gout Skin: No change in hair/nails Psychiatric/Neurological: Denies Anxiety, Denies Depressed All Other Systems Reviewed Negative Unless Noted: Yes (Negative excepted noted.) Physical Exam-General Problems Physical Exam General Appearance: no apparent distress, obese HEENT: PERRL/EOMI, normal ENT inspection Neck: non-tender, full range of motion Respiratory: chest non-tender, no respiratory distress, no accessory muscle use Cardiovascular: regular rate, rhythm, no JVD Gastrointestinal: non tender, soft Rectal: deferred Back: normal inspection, no CVA tenderness Extremities: pedal edema, swelling, other (chronic skin changes b/l) Neurologic/Psychiatric: alert, normal mood/affect, disoriented x 3 Skin: normal color, warm/dry Lymphatic: no adenopathy Assessment/Plan Assessment/Plan Assessment/Plan chronic anemia possible GI bleed CAD, CKD Antiplatelet track and trend hgb/hct, transfuse as necessary - has received 2 units PRBC thus far iron studies and fecal occult pending continue to hold plavix/asa conservative measures at this time. would consider egd/colonoscopy inpatient vs outpatient if benefits outweigh risks antiplatelets need held 5 days for this unless emergent. Supervisory-Addendum Brief Verification & Attestation Participated in pt care: history, MDM, physical Personally performed: exam, history, MDM, supervision of care Care discussed with: Medical Student Procedures: n/a Results interpretation: Verified all documentation Verification and Attestation of Medical Student E/M Service A medical student performed and documented this service in my presence. I reviewed and verified all information documented by the medical student and made modifications to such information, when appropriate. I personally performed the physical exam and medical decision making. Modesta Ventura, Sep 11, 2022,16:15 EMMA BHATTI Sep 11, 2022 11:55 MODESTA VENTURA DO Sep 11, 2022 16:12
[2022-09-11] MEDS: VENlafaxine 37.5 MG (EFFEXOR) TAB PO SCH ×2 (13:16→21:20)
--- NOTE | 2022-09-11 17:39 | History & Physical-Hospitalist ---
History of Present Illness HPI/Chief Complaint Dannielle Lopez is a 71 year old female with PMH HTN, T2DM, HLD, COPD, CAD, hypothyroidism, breast cancer, chornic left upper extremity lymphedema, super obesity, who presented from [facility] with anemia. She is a poor historian. She does not know if she has had any blood in her stools. She denies lightheadedness and dizziness. She denies chest pain and shortness of breath. She denies abdominal pain, nausea, vomiting, and diarrhea. She has no complaints. When asked about her arm swelling she says it is new, but then when prompted she says it has been present since she had surgery and lymph nodes removed. Source: patient, RN/MD Exam Limitations: no limitations Date Seen 09/11/22 Time Seen by a Provider: 11:00 Attending Physician Patricio Barnard MD PCP Admitting Physician: Letitia Patel DO Attending Physician: Marci Espitia MD Referring Physician Date of Admission Sep 10, 2022 at 20:30 Home Medications & Allergies Home Medications Reviewed patient Home Medication Reconciliation performed by pharmacy medication reconciliations certification technician and/or nursing. Patients Allergies have been reviewed. Allergies Allergies Coded Allergies ceftriaxone (Verified Allergy, Intermediate, N/V/D, 04/18/22) adhesive tape (Unverified Allergy, Unknown, 12/24/19) codeine (Verified Allergy, Unknown, Nausea, 06/17/22) morphine (Verified Allergy, Unknown, Nausea, 06/17/22) penicillin G (Verified Allergy, Unknown, 12/24/19) Past Yphzgyx-Tvtlsn-Cwdpyu Hx Patient Social History Tobacco Use?: No Use of E-Cig and/or Vaping dev: No Substance use?: No Alcohol Use?: No Pt feels they are or have been: No Immunizations Up To Date Date of Influenza Vaccine: Sep 28, 2019 First/Initial COVID19 Vaccinat: Moderna Second COVID19 Vaccination Alok: Moderna Tetanus Booster (TDap): Unknown Seasonal Allergies Seasonal Allergies: No Current Status status: No Advance Directives: Yes Communicates: Verbally Primary Language: Swiss Preferred Spoken Language: Swiss Is interpretation needed?: No Implanted or Applied Medical D: None Past Medical History Surgeries: Gallbladder, Hysterectomy, Orthopedic, Thyroidectomy COPD (Uses O2 via NC at 2 lpm) Chronic Edema/Swelling (Lymphedema of left upper extremity), Coronary Artery Disease, High Cholesterol, Hypertension, Valvular Heart Disease 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 Renal Failure (Chronic kidney disease) Arthritis Diabetes, Insulin dep, Hypothyroidsim Breast, Lymphoma Did You Recieve Any Treatments: Yes What Type of Treatment Did You: Surgical Intervention Blood Disorders: No PMHx: Left breast cancer treated with chemo in the Diabetes HTN HLD SurgHx: Left breast removal/reconstruction Right breast reduction Cholecystectomy Family Medical History Cancer Review of Systems Constitutional: no symptoms reported Respiratory: no symptoms reported Gastrointestinal: no symptoms reported Genitourinary: no symptoms reported Physical Exam Physical Exam Vital Signs Vital Signs - First Documented 09/10/22 09/10/22 16:14 19:20 Temp 35.8 Pulse 60 Resp 18 B/P (MAP) 186/63 (104) Pulse Ox 100 O2 Delivery Nasal Cannula O2 Flow Rate 4.00 Capillary Refill : Less Than 3 Seconds Height, Weight, BMI Height: '" Weight: lbs. oz. kg; 52.61 BMI Method: General Appearance: No Apparent Distress, Obese HEENT: PERRL/EOMI, Pharynx Normal Neck: Normal Inspection, Supple Respiratory: No Respiratory Distress, Decreased Breath Sounds Cardiovascular: No Edema, Systolic Murmur Gastrointestinal: Normal Bowel Sounds, Non Tender, Soft Extremity: No Inflammation; Swelling (left arm lymphedema, bilateral lower extremity pitting edema 3+ with tenderness) Neurologic/Psychiatric: Alert, Normal Mood/Affect, Disoriented Skin: Normal Color, Warm/Dry Results Results/Procedures Labs Laboratory Tests 09/10/22 16:21 09/11/22 05:52 09/11/22 09:05 Patient resulted labs reviewed. Imaging: Reviewed Imaging Report Assessment/Plan Admission Diagnosis Severe anemia Admission Status: Observation Assessment and Plan Severe anemia Hgb 6.2 on arrival s/p 2 units PRBC Hgb 7.1 this morning Add on iron studies and FOBT Consult surgery for possible endoscopic evaluation Hold Plavix SHEREE on CKD BUN possibly elevated due to GI bleed Cr slightly above baseline as well Gentle IV fluids HTN Hold Losartan Resume home meds as able T2DM Decreased dose Levemir Sliding scale insulin CAD Holding Plavix Hypothyroidism HLD COPD Super obesity Continue home meds as able DVT prophylaxis: held due to anemia, possible GI bleeding Diagnosis/Problems Diagnosis/Problems (1) Severe anemia Status: Acute (2) SHEREE (acute kidney injury) Status: Acute (3) HTN (hypertension) Status: Chronic (4) T2DM (type 2 diabetes mellitus) Status: Chronic Qualifiers: Diabetes mellitus termite inspector insulin use: with termite inspector use Diabetes mellitus complication status: with kidney complications Diabetes mellitus complication detail: with chronic kidney disease Chronic kidney disease stage: stage 3 (moderate) Chronic kidney disease stage 3 subtype: stage 3b (GFR 30- 44) Qualified Codes: E11.22 - Type 2 diabetes mellitus with diabetic chronic kidney disease; N18.32 - Chronic kidney disease, stage 3b; Z79.4 - manager terminal (c urrent) use of insulin (5) HLD (hyperlipidemia) Status: Chronic (6) COPD (chronic obstructive pulmonary disease) Status: Chronic (7) CAD (coronary artery disease) Status: Chronic (8) Super obesity Status: Chronic (9) Hypothyroidism Status: Chronic (10) Physical debility Status: Chronic Clinical Quality Measures DVT/VTE Risk/Contraindication: Contraindications-Pharm: Other *list below* Other: anemia MARCI ESPITIA MD Sep 11, 2022 17:39
[2022-09-11] MEDS: GABAPENTIN 300 MG (NEURONTIN) CAP PO SCH (21:21)
[2022-09-11] MEDS: AtorvaSTATin TABLET 10 MG TABLET PO SCH (21:21)
[2022-09-12] MEDS: RT-ALBUTEROL SULF 2.5 MG/3 ML PRE-MIX VIAL INH SCH ×4 (03:15→20:13)
[2022-09-12 03:51] VITALS: BP 156/70
[2022-09-12] MEDS: LACTATED RINGERS 1,000 ML IV SCH ×3 (05:18→19:19)
[2022-09-12] MEDS: inSUlin ASPART (NovoLOG) 1 UNIT/0.01 ML (CHARGE PER UNIT) SC SCH ×4 (06:05→20:20)
[2022-09-12 06:08] LABS: BASOPHILS # (AUTO) 0.1 10^3/uL (0.0-0.1); BASOPHILS % (AUTO) 1 % (0-10); EOSINOPHILS # (AUTO) 0.5 10^3/uL (0.0-0.3); EOSINOPHILS % (AUTO) 6 % (0-10); HEMATOCRIT 22 % (35-52); LYMPHOCYTES # (AUTO) 1.4 10^3/uL (1.0-4.0); LYMPHOCYTES % (AUTO) 17 % (12-44); MEAN CORPUSCULAR HEMOGLOBIN 27 pg (25-34); MEAN CORPUSCULAR HGB CONC 31 g/dL (32-36); MEAN CORPUSCULAR VOLUME 85 fL (80-99); MONOCYTES # (AUTO) 0.6 10^3/uL (0.0-1.0); MONOCYTES % (AUTO) 8 % (0-12); NEUTROPHILS # (AUTO) 5.5 10^3/uL (1.8-7.8); NEUTROPHILS % (AUTO) 68 % (42-75); PLATELET COUNT 311 10^3/uL (130-400); WHITE BLOOD COUNT 8.1 10^3/uL (4.3-11.0)
[2022-09-12 06:36] LABS: ALBUMIN 2.8 GM/DL (3.2-4.5); BILIRUBIN,TOTAL 0.6 MG/DL (0.1-1.0); CALCIUM 8.1 MG/DL (8.5-10.1); CREATININE SERUM 2.27 MG/DL (0.60-1.30); POTASSIUM 4.5 MMOL/L (3.6-5.0); TOTAL PROTEIN 5.6 GM/DL (6.4-8.2)
--- NOTE | 2022-09-12 07:22 | Progress Note - Surgery ---
DAVYEMMA 09/12/22 0722: Subjective Date Seen by a Provider: Sep 12, 2022 Time Seen by a Provider: 07:17 Subjective/Events-last exam Today pt is somewhat oriented but still a poor historian and is not accompanied by anyone. Able to state her name and where she is but not why she is in the hospital. She denies having BM but endorses passing flatus. Reports having pain in her lower extremities today but is unable to describe. No abdominal pain, CP, SOB, nausea, vomiting. Hgb down to 7.0 from 7.4 yesterday. Review of Systems General: No Chills, No Night Sweats HEENT: No Head Aches, No Visual Changes Pulmonary: No Dyspnea, No Cough Cardiovascular: No: Chest Pain, Palpitations Gastrointestinal: No: Nausea, Vomiting, Abdominal Pain Genitourinary: No Dysuria, No Frequency Musculoskeletal: leg pain Neurological: No: Weakness, Numbness Objective Exam Vital Signs Date Time Temp Pulse Resp B/P (MAP) Pulse Ox O2 Delivery O2 Flow Rate FiO2 09/12/22 05:18 36.4 09/12/22 03:51 36.4 62 16 156/70 (98) 94 Nasal Cannula 2.00 09/12/22 01:00 60 09/11/22 23:39 36.2 64 16 180/72 (108) 97 Nasal Cannula 2.00 09/11/22 21:05 98 Nasal Cannula 2.00 09/11/22 20:00 99 Nasal Cannula 2.00 09/11/22 19:17 36.5 62 22 174/74 (107) 100 Nasal Cannula 2.00 09/11/22 19:00 62 09/11/22 15:34 36.8 60 20 160/70 (100) 98 Nasal Cannula 2.00 09/11/22 15:18 99 Nasal Cannula 2.00 09/11/22 12:48 62 09/11/22 11:16 36.3 61 18 145/65 (91) 99 Nasal Cannula 2.00 09/11/22 09:32 94 Nasal Cannula 2.00 09/11/22 08:00 99 Nasal Cannula 2.00 09/11/22 07:51 36.4 59 16 186/77 (113) 99 Nasal Cannula 2.00 I & O 09/12/22 07:00 Intake Total 2242 ml Output Total 1950 ml Balance 292 ml Capillary Refill : Less Than 3 Seconds General Appearance: No Apparent Distress, Obese HEENT: PERRL/EOMI, Pharynx Normal Neck: Normal Inspection, Supple Respiratory: Chest Non Tender, No Respiratory Distress Cardiovascular: No Edema, No JVD Peripheral Pulses: 2+ Radial Pulses (R), 2+ Radial Pulses (L) Gastrointestinal: non tender, soft Extremity: Normal Capillary Refill, Swelling (b/l lower extremity edema with tenderness) Neurologic/Psychiatric: Alert, Normal Mood/Affect, Disoriented Skin: Normal Color, Warm/Dry Lymphatic: No Adenopathy Results Lab Laboratory Tests 09/11/22 09:05: Hemoglobin 7.4L, Iron Level 214H, Total Iron Binding Capacity 279, Unsaturated Iron Binding Capacity 65, Transferrin % Saturation 77H, Ferritin 40.5 09/11/22 10:42: Glucometer 222H 09/11/22 15:40: Glucometer 222H 09/11/22 20:19: Glucometer 200H 09/12/22 05:08: Glucometer 149H 09/12/22 05:42: White Blood Count 8.1, Red Blood Count 2.61L, Hemoglobin 7.0L, Hematocrit 22L, Mean Corpuscular Volume 85, Mean Corpuscular Hemoglobin 27, Mean Corpuscular Hemoglobin Concent 31L, Red Cell Distribution Width 15.1H, Platelet Count 311, Mean Platelet Volume 10.0, Immature Granulocyte % (Auto) 0, Neutrophils (%) (Auto) 68, Lymphocytes (%) (Auto) 17, Monocytes (%) (Auto) 8, Eosinophils (%) (Auto) 6, Basophils (%) (Auto) 1, Neutrophils # (Auto) 5.5, Lymphocytes # (Auto) 1.4, Monocytes # (Auto) 0.6, Eosinophils # (Auto) 0.5H, Basophils # (Auto) 0.1, Immature Granulocyte # (Auto) 0.0, Sodium Level 141, Potassium Level 4.5, Chloride Level 100, Carbon Dioxide Level 29, Anion Gap 12, Blood Urea Nitrogen 82H, Creatinine 2.27H, Estimat Glomerular Filtration Rate 23, BUN/Creatinine Ratio 36, Glucose Level 160H, Calcium Level 8.1L, Corrected Calcium 9.1, Total Bilirubin 0.6, Aspartate Amino Transf (AST/SGOT) 21, Alanine Aminotransferase (ALT/SGPT) 26, Alkaline Phosphatase 307H, Total Protein 5.6L, Albumin 2.8L Assessment/Plan Assessment/Plan Assessment/Plan chronic anemia possible GI bleed CAD, CKD Antiplatelet track and trend hgb/hct, transfuse as necessary - has received 2 units PRBC thus far iron studies with elevated Fe occult negative continue to hold plavix/asa conservative measures at this time. would consider egd/colonoscopy inpatient vs outpatient if benefits outweigh risks antiplatelets need held 5 days for this unless emergent. Clinical Quality Measures DVT/VTE Risk/Contraindication: Contraindications-Pharm: Other *list below* Other: anemia ANA CARPIOTT Nakita DO 09/12/22 1132: Subjective Subjective/Events-last exam Patient pleasant, laying in bed. No family or caregivers present. Not having any abodminal pain. No blood per rectum. Tolerating diet. Denies n/v fever sweats chills shortness of breath or chest pain. Hgb 7 Objective Exam General Appearance: No Apparent Distress, Obese HEENT: PERRL/EOMI, Normal ENT Inspection Neck: Full Range of Motion, Supple Respiratory: Chest Non Tender, No Accessory Muscle Use, No Respiratory Distress Cardiovascular: Regular Rate, Rhythm, No JVD Gastrointestinal: non tender, soft Extremity: Normal Capillary Refill, Non Tender, Swelling (b/l lower extremity edema with tenderness) Neurologic/Psychiatric: Alert, Normal Mood/Affect, Disoriented Skin: Normal Color, Warm/Dry Lymphatic: No Adenopathy Assessment/Plan Assessment/Plan Assessment/Plan chronic anemia possible GI bleed CAD, CKD Antiplatelet track and trend hgb/hct, transfuse as necessary - has received 2 units PRBC thus far no blood per rectum feel likely anemia of chronic disease consider consult to nephrology continue to hold plavix/asa conservative measures at this time. would consider egd/colonoscopy inpatient vs outpatient if benefits outweigh risks antiplatelets need held 5 days for this unless emergent. Supervisory-Addendum Brief Verification & Attestation Participated in pt care: history, MDM, physical Personally performed: exam, history, MDM, supervision of care Care discussed with: Medical Student Procedures: n/a Results interpretation: Verified all documentation Verification and Attestation of Medical Student E/M Service A medical student performed and documented this service in my presence. I reviewed and verified all information documented by the medical student and made modifications to such information, when appropriate. I personally performed the physical exam and medical decision making. Modesta Carpio, Sep 12, 2022,11:32 EMMA BHATTI Sep 12, 2022 07:22 MODESTA CARPIO DO Sep 12, 2022 11:32
[2022-09-12 07:25] VITALS: BP 156/67
[2022-09-12] MEDS ORDERED: CLOPIDOGREL 75 MG (PLAVIX) TABLET PO SCH (09:00)
[2022-09-12] MEDS: PANTOPRAZOLE 40 MG (PROTONIX) VIAL IV SCH ×2 (09:13→20:20)
[2022-09-12] MEDS: DOCUSATE SODIUM 100 MG (COLACE) CAP PO SCH ×2 (09:13→20:20)
[2022-09-12] MEDS: LEVOTHYROXINE 125 MCG (LEVOTHROID) TABLET PO SCH (09:13)
[2022-09-12] MEDS: VENlafaxine 37.5 MG (EFFEXOR) TAB PO SCH ×3 (09:14→20:20)
[2022-09-12] MEDS: GABAPENTIN 300 MG (NEURONTIN) CAP PO SCH ×2 (09:14→20:20)
--- NOTE | 2022-09-12 10:16 | Progress Note - Hospitalist ---
Subjective HPI/CC On Admission Date Seen by Provider: Sep 12, 2022 Time Seen by Provider: 09:40 Dannielle Lopez is a 71 year old female with PMH HTN, T2DM, HLD, COPD, CAD, hypothyroidism, breast cancer, chornic left upper extremity lymphedema, super obesity, who presented from [facility] with anemia. She is a poor historian. She does not know if she has had any blood in her stools. She denies lightheadedness and dizziness. She denies chest pain and shortness of breath. She denies abdominal pain, nausea, vomiting, and diarrhea. She has no complaints. When asked about her arm swelling she says it is new, but then when prompted she says it has been present since she had surgery and lymph nodes removed. Subjective/Events-last exam She has not had any bowel movements and thus no melena or hematochezia. She denies pain. She has a good appetite. She denies shortness of breath. She has no complaints. She is watching TV. Objective Exam Vital Signs Vital Signs Date Time Temp Pulse Resp B/P (MAP) Pulse Ox O2 Delivery O2 Flow Rate FiO2 09/12/22 08:40 Nasal Cannula 2.00 09/12/22 07:44 98 09/12/22 07:25 36.3 58 18 156/67 (96) Capillary Refill : Less Than 3 Seconds General Appearance: No Apparent Distress, Obese Respiratory: No Accessory Muscle Use, No Respiratory Distress, Wheezing (right >> left) Cardiovascular: Systolic Murmur Gastrointestinal: Normal Bowel Sounds, Non Tender, Soft Extremity: Pedal Edema, Swelling Neurologic/Psychiatric: Alert, Normal Mood/Affect Skin: Normal Color, Warm/Dry Results/Procedures Lab Laboratory Tests 09/12/22 05:42 Patient resulted labs reviewed. Imaging: Reviewed Imaging Report Assessment/Plan Assessment and Plan Assess & Plan/Chief Complaint Severe anemia Anemia of chronic disease Chronic kidney disease, stage IV Hgb 6.2 on arrival s/p 2 units PRBC Hgb 7 this morning, stable Transfuse for Hgb <7 Iron studies consistent with anemia of chronic disease No evidence of blood loss Case discussed with Dr. Carpio, no plan for endoscopic evaluation at this time Resume Plavix Add on erythropoetin level, B12, folate HTN Holding Losartan Resume home meds as able T2DM Decreased dose Levemir Sliding scale insulin CAD Resume Plavix Hypothyroidism HLD COPD Super obesity Continue home meds as able DVT prophylaxis: held due to anemia, possible GI bleeding Diagnosis/Problems Diagnosis/Problems (1) Severe anemia Status: Acute (2) SHEREE (acute kidney injury) Status: Acute (3) HTN (hypertension) Status: Chronic (4) T2DM (type 2 diabetes mellitus) Status: Chronic Qualifiers: Diabetes mellitus correction insulin use: with semiconductor bonder use Diabetes mellitus complication status: with kidney complications Diabetes mellitus complication detail: with chronic kidney disease Chronic kidney disease stage: stage 4 (severe) Qualified Codes: E11.22 - Type 2 diabetes mellitus with diabetic chronic kidney disease; N18.4 - Chronic kidney disease, stage 4 (severe); Z79.4 - [facility] (current) use of insulin (5) HLD (hyperlipidemia) Status: Chronic (6) COPD (chronic obstructive pulmonary disease) Status: Chronic (7) CAD (coronary artery disease) Status: Chronic (8) Super obesity Status: Chronic (9) Hypothyroidism Status: Chronic (10) Physical debility Status: Chronic Clinical Quality Measures DVT/VTE Risk/Contraindication: Contraindications-Pharm: Other *list below* Other: anemia MARCI ESPITIA MD Sep 12, 2022 10:16
[2022-09-12 11:06] VITALS: BP 167/70
[2022-09-12 16:00] VITALS: BP 169/68
[2022-09-12] MEDS: RT-ALBUTEROL SULF 2.5 MG/3 ML PRE-MIX VIAL INH PRN (17:24)
[2022-09-12 19:28] VITALS: BP 168/72
[2022-09-12] MEDS: AtorvaSTATin TABLET 10 MG TABLET PO SCH (20:20)
[2022-09-12 23:12] VITALS: BP 142/66
[2022-09-13] MEDS: RT-ALBUTEROL SULF 2.5 MG/3 ML PRE-MIX VIAL INH SCH ×4 (02:47→21:04)
[2022-09-13 04:25] VITALS: BP 142/82
[2022-09-13 05:43] LABS: HEMOGLOBIN 6.8 g/dL (11.5-16.0)
[2022-09-13 05:56] LABS: CREATININE SERUM 2.18 MG/DL (0.60-1.30); PHOSPHORUS 4.5 MG/DL (2.3-4.7); POTASSIUM 4.5 MMOL/L (3.6-5.0)
[2022-09-13] MEDS: inSUlin ASPART (NovoLOG) 1 UNIT/0.01 ML (CHARGE PER UNIT) SC SCH ×4 (06:00→20:47)
--- NOTE | 2022-09-13 06:34 | Progress Note - Surgery ---
[facility] Subjective Date Seen by a Provider: Sep 13, 2022 Time Seen by a Provider: 06:31 Subjective/Events-last exam She denies pain today. Had a BM yesterday that was occult positive. Is passing flatus. Denies SOB, CP, nausea, vomiting, sweats, chills. Review of Systems General: No Chills, No Night Sweats HEENT: No Head Aches, No Visual Changes Pulmonary: No Dyspnea, No Cough Cardiovascular: No: Chest Pain, Palpitations Gastrointestinal: No: Nausea, Vomiting Genitourinary: No Dysuria, No Frequency Musculoskeletal: No: neck pain, shoulder pain Neurological: No: Weakness, Numbness Objective Exam Vital Signs Date Time Temp Pulse Resp B/P (MAP) Pulse Ox O2 Delivery O2 Flow Rate FiO2 09/13/22 04:25 36.2 63 16 142/82 (102) 97 Nasal Cannula 2.00 09/13/22 02:47 97 Nasal Cannula 2.00 09/13/22 01:00 58 09/12/22 23:12 36.2 61 18 142/66 (91) 98 Nasal Cannula 2.00 09/12/22 20:45 Nasal Cannula 2.00 09/12/22 20:13 97 Nasal Cannula 2.00 09/12/22 19:31 36.3 09/12/22 19:28 36.3 59 20 168/72 (104) 99 Nasal Cannula 2.00 09/12/22 19:00 61 09/12/22 17:24 98 Nasal Cannula 2.00 09/12/22 16:00 36.3 60 20 169/68 (101) 100 Nasal Cannula 2.00 09/12/22 14:13 100 Nasal Cannula 2.00 09/12/22 12:59 59 09/12/22 11:06 36.2 60 18 167/70 (102) 93 Nasal Cannula 2.00 09/12/22 08:40 Nasal Cannula 2.00 09/12/22 07:44 98 Nasal Cannula 2.00 09/12/22 07:25 36.3 58 18 156/67 (96) 97 Nasal Cannula 2.00 09/12/22 07:00 58 I & O 09/13/22 07:00 Intake Total 1875 ml Output Total 1500 ml Balance 375 ml Capillary Refill : Less Than 3 Seconds General Appearance: No Apparent Distress, Obese HEENT: PERRL/EOMI, Normal ENT Inspection Neck: Full Range of Motion, Supple Respiratory: Chest Non Tender, No Accessory Muscle Use, No Respiratory Distress Cardiovascular: Regular Rate, Rhythm, No JVD Peripheral Pulses: 2+ Radial Pulses (R), 2+ Radial Pulses (L) Gastrointestinal: non tender, soft Extremity: Normal Capillary Refill, Non Tender, Swelling (b/l lower extremity edema with tenderness) Neurologic/Psychiatric: Alert, Normal Mood/Affect, Disoriented Skin: Normal Color, Warm/Dry Lymphatic: No Adenopathy Results Lab Laboratory Tests 09/12/22 10:24: Glucometer 229H 09/12/22 12:30: Vitamin B12 Level 419, Folate 6.7 09/12/22 15:18: Stool Occult Blood Immunoassay POSITIVEH 09/12/22 16:06: Glucometer 218H 09/12/22 20:01: Glucometer 208H 09/13/22 05:22: Glucometer 108 09/13/22 05:29: Hemoglobin 6.8*L, Hematocrit 22L, Sodium Level 140, Potassium Level 4.5, Chloride Level 101, Carbon Dioxide Level 26, Anion Gap 13, Blood Urea Nitrogen 72H, Creatinine 2.18H, Estimat Glomerular Filtration Rate 24, BUN/Creatinine Ratio 33, Glucose Level 102, Calcium Level 8.0L, Phosphorus Level 4.5 Assessment/Plan Assessment/Plan Assessment/Plan chronic anemia possible GI bleed CAD, CKD Antiplatelet track and trend hgb/hct, transfuse as necessary - has received 2 units PRBC thus far no blood per rectum stool occult positive 09/12 feel likely anemia of chronic disease consider consult to nephrology conservative measures at this time. would consider egd/colonoscopy inpatient vs outpatient if benefits outweigh risks antiplatelets need held 5 days for this unless emergent. Clinical Quality Measures DVT/VTE Risk/Contraindication: Contraindications-Pharm: Other *list below* Other: anemia MODESTA CARPIO DO 09/13/22 0931: Subjective Subjective/Events-last exam Patient pleasant and laying in bed. Patient having a little shortness of breath. Hgb down to 6.8. No gross blood. Occult positive stool. Was restarted on Plavix. Denies n/v fever sweats chills or chest pain. Objective Exam General Appearance: No Apparent Distress, Obese HEENT: PERRL/EOMI, Normal ENT Inspection Neck: Full Range of Motion, Supple Respiratory: Chest Non Tender, No Accessory Muscle Use, No Respiratory Distress Cardiovascular: Regular Rate, Rhythm, No JVD Gastrointestinal: non tender, soft Extremity: Normal Capillary Refill, Non Tender, Swelling (b/l lower extremity edema with tenderness) Neurologic/Psychiatric: Alert, Normal Mood/Affect, Disoriented Skin: Normal Color, Warm/Dry Lymphatic: No Adenopathy Assessment/Plan Assessment/Plan Assessment/Plan chronic anemia possible GI bleed CAD, CKD Antiplatelet use track and trend hgb/hct, transfuse as necessary - has received 2 units PRBC thus far no blood per rectum stool occult positive 09/12 feel likely anemia of chronic disease consider consult to nephrology conservative measures at this time. would consider egd/colonoscopy inpatient vs outpatient if benefits outweigh risks antiplatelets need held 5 days for this unless emergent. Supervisory-Addendum Brief Verification & Attestation Participated in pt care: history, MDM, physical Personally performed: exam, history, MDM, supervision of care Care discussed with: Medical Student Procedures: n/a Results interpretation: Verified all documentation Verification and Attestation of Medical Student E/M Service A medical student performed and documented this service in my presence. I reviewed and verified all information documented by the medical student and made modifications to such information, when appropriate. I personally performed the physical exam and medical decision making. Modesta Carpio, Sep 13, 2022,09:32 EMMA BHATTI Sep 13, 2022 06:34 MODESTA CARPIO DO Sep 13, 2022 09:31
[2022-09-13 08:00] VITALS: BP 125/64
[2022-09-13] MEDS ORDERED: BUME2TAB7 PO (08:27)
[2022-09-13] MEDS ORDERED: POTA-179 PO (08:27)
[2022-09-13] MEDS ORDERED: NYST1000 PO (08:27)
[2022-09-13] MEDS ORDERED: POLY17PO6 PO (08:28)
[2022-09-13] MEDS ORDERED: GLUC1KIT IJ (08:33)
[2022-09-13] MEDS ORDERED: ALPR0.254 PO (08:36)
[2022-09-13] MEDS ORDERED: DOXE6TAB5 PO (08:38)
[2022-09-13] MEDS: VENlafaxine 37.5 MG (EFFEXOR) TAB PO SCH ×3 (09:22→20:00)
[2022-09-13] MEDS: GABAPENTIN 300 MG (NEURONTIN) CAP PO SCH ×2 (09:22→20:01)
[2022-09-13] MEDS: DOCUSATE SODIUM 100 MG (COLACE) CAP PO SCH ×2 (09:22→19:44)
[2022-09-13] MEDS: PANTOPRAZOLE 40 MG (PROTONIX) VIAL IV SCH ×2 (09:22→20:00)
[2022-09-13] MEDS: LEVOTHYROXINE 125 MCG (LEVOTHROID) TABLET PO SCH (09:25)
[2022-09-13] MEDS: CLOPIDOGREL 75 MG (PLAVIX) TABLET PO SCH (10:16)
--- NOTE | 2022-09-13 11:32 | Progress Note ---
Subjective Subjective/Events-last exam Assumed care for Ms Tolentino this AM. No acute ON events. Tolerated PO diet. States that she is having some shortness of breath this AM. Denies any blood in stool or urine. Review of Systems General: Fatigue Pulmonary: Dyspnea; No Cough Cardiovascular: No: Chest Pain, Palpitations Gastrointestinal: No: Nausea, Vomiting, Abdominal Pain, Diarrhea, Constipation Neurological: Weakness, Incoordination Objective Exam Last Set of Vital Signs Vital Signs Date Time Temp Pulse Resp B/P (MAP) Pulse Ox O2 Delivery O2 Flow Rate FiO2 09/13/22 08:30 Nasal Cannula 2.00 09/13/22 08:00 36.4 56 18 125/64 (84) 98 Capillary Refill : Less Than 3 Seconds I&O Intake and Output 09/12/22 23:59 Intake Total 2035 ml Output Total 1650 ml Balance 385 ml Intake Oral 2035 ml Output Urine Total 1650 ml # Bowel Movements 1 General: Alert, Oriented X3, Mild Distress (with some conversational dyspnea) Lungs: Other (diffuse wheezing and increased work of breathing) Heart: Regular Rate Abdomen: Normal Bowel Sounds, Soft, No Tenderness, No Masses Extremities: Other (2+ pitting edema bilateral LE) Neuro: Normal Speech Results/Procedures Lab Laboratory Tests 09/12/22 12:30: Vitamin B12 Level 419, Folate 6.7 09/12/22 15:18: Stool Occult Blood Immunoassay POSITIVEH 09/12/22 16:06: Glucometer 218H 09/12/22 20:01: Glucometer 208H 09/13/22 05:22: Glucometer 108 09/13/22 05:29: Hemoglobin 6.8*L, Hematocrit 22L, Sodium Level 140, Potassium Level 4.5, Chloride Level 101, Carbon Dioxide Level 26, Anion Gap 13, Blood Urea Nitrogen 72H, Creatinine 2.18H, Estimat Glomerular Filtration Rate 24, BUN/Creatinine Ratio 33, Glucose Level 102, Calcium Level 8.0L, Phosphorus Level 4.5 09/13/22 10:13: Glucometer 143H Radiology [facility], [place] NAME: RO TOLENTINO MED REC#: [id number] PT STATUS: REG ER : 1950 PHYSICIAN: CARLOS LARA MD ADMIT DATE: 09/10/22/ER FS Signed Date of Exam:09/10/22 CHEST 1 VIEW AP/PA ONLY EXAMINATION: Chest 1 view. HISTORY: Respiratory distress. COMPARISON: 07/14/2022. FINDINGS: The lung volumes are normal. No focal consolidation is seen. No large pleural effusion or pneumothorax is seen. The cardiomediastinal silhouette is prominent. No acute osseous abnormality is seen. IMPRESSION: Cardiomegaly. No overt pulmonary edema. Dictated by: Dictated on workstation # [id number] Dict: 09/10/221906 Trans: 09/10/221908 [facility] [id number] Interpreted by: FERNANDO GONZALEZ DO Electronically signed by: FERNANDO GONZALEZ DO 09/10/221908 Assessment/Plan Assessment/Plan (1) Severe anemia Status: Acute Assessment & Plan: 09/13: No signs of acute bleeding, continue to monitor, Normal iron panel/Thiamine/Folate, most likely 2/2 to CKD (2) Anemia in chronic kidney disease (CKD) Status: Chronic Qualifiers: Qualified Codes: N18.4 - Chronic kidney disease, stage 4 (severe); D63.1 - Anemia in chronic kidney disease (3) Acute on chronic renal failure Status: Acute Assessment & Plan: 09/13: Baseline upon review of chart 1.2-1.8, Stopping IVFs today due to respiratory distress Qualifiers: Qualified Codes: N17.9 - Acute kidney failure, unspecified; N18.4 - Chronic kidney disease, stage 4 (severe) (4) COPD (chronic obstructive pulmonary disease) Status: Chronic Assessment & Plan: 09/13: Titrate oxygen as tolerated, MAT protocol Qualifiers: Qualified Codes: J44.9 - Chronic obstructive pulmonary disease, unspecified (5) HTN (hypertension) Status: Chronic Qualifiers: Qualified Codes: I10 - Essential (primary) hypertension (6) HLD (hyperlipidemia) Status: Chronic Qualifiers: Qualified Codes: E78.5 - Hyperlipidemia, unspecified (7) T2DM (type 2 diabetes mellitus) Status: Chronic Qualifiers: Qualified Codes: E11.22 - Type 2 diabetes mellitus with diabetic chronic kidney disease; N18.4 - Chronic kidney disease, stage 4 (severe); Z79.4 - nursing home (current) use of insulin (8) CAD (coronary artery disease) Status: Chronic Qualifiers: Qualified Codes: I25.10 - Atherosclerotic heart disease of [place] coronary artery without angina pectoris (9) Hypothyroidism Status: Chronic Qualifiers: Qualified Codes: E03.9 - Hypothyroidism, unspecified (10) Physical debility Status: Chronic Assessment & Plan: 09/13: PT ordered Clinical Quality Measures DVT/VTE Risk/Contraindication: Contraindications-Pharm: Other *list below* Other: anemia ODILON SOSA MD Sep 13, 2022 11:32
[2022-09-13 11:48] VITALS: BP 157/69
--- NOTE | 2022-09-13 13:35 | Physical Therapy Evaluation ---
PT Evaluation-General Medical Diagnosis Admission Date Sep 12, 2022 at 14:11 Medical Diagnosis: severe anemia Onset Date: Sep 12, 2022 Therapy Diagnosis Therapy Diagnosis: generalized weakness/debility Precautions Precautions/Isolations: Fall Prevention, Standard Precautions Referral Physician: Liza Reason for Referral: Evaluation/Treatment Medical History Pertinent Medical History: Arthritis, CAD, DM, Heart Failure, HTN, Neuropathy Additional Medical History morbid obesity Current History ER from [place] secondary to low Hgb Reviewed History: Yes Social History Home: [facility] Prior Prior Level of Function SCALE: Activities may be completed with or without assistive devices. 5-Mbdjoaighy-jjbqeka completes the activity by him/herself with no assistance from a helper. 5-Set-up or Clean-up Assistance-helper sets up or cleans up; patient completes activity. [place] assists only prior to or following the activity. 4-Supervision or Touching Assistance-helper provides verbal cues and/or touching/steadying and/or contact guard assistance as patient completes activity. Assistance may be provided throughout the activity or intermittently. 3-Partial/Moderate Assistance-helper does LESS THAN HALF the effort. [place] lifts, holds or supports trunk or limbs, but provides less than half the effort. 2-Substantial/Maximal Assistance-helper does MORE THAN HALF the effort. [place] lifts or holds trunk or limbs and provides more than half the effort. 8-Jsxuslryn-yymahj does ALL the effort. Patient does none of the effort to complete the activity. Or, the assistance of 2 or more helpers is required for the patient to complete the activity. If activity was not attempted, code reason: 7-Patient Refused. 9-Not Applicable-not attempted and the patient did not perform the activity before the current illness, exacerbation or injury. 10-Not Attempted due to Environmental Limitations-(lack of equipment, weather restraints, etc.). 88-Not Attempted due to Medical Conditions or Safety Concerns. Bed Mobility: 4 Transfers (B,C,W/C): 4 Gait: 4 Stairs: 9 Wheelchair Mobility: 4 Indoor Mobility (Ambulation): Needed Some Help Stairs: Not Applicalbe Prior Devices Use: Manual wheelchair, Walker PT Evaluation-Current Subjective Patient agrees to PT. Objective Patient Orientation: Person, Time, Situation Attachments: Oxygen ROM/Strength ROM Upper Extremities bilateral LE WFL Strength Lower Extremities 3/5 grossly bilateral LE all planes Integumentary/Posture Integumentary refer to nursing notes Posture trunk flexed posture Neuromuscular (Tone, Coordination, Reflexes) grossly intact Sensory Vision: Functional Hearing: Functional Sensation Right Lower Extremit: Impaired Sensation Left Lower Extremity: Impaired Transfers Roll Left to Right (QC): 2 Sit to Lying (QC): 2 Lying to Sitting/Side of Bed(Q: 2 Sit to Stand (QC): 2 Chair/Fot-wy-Irieb Xfer(QC): 7 Gait Mode of Locomotion: Both Anticipated Mode of Locomotion: Both Walk 10 feet (QC): 7 Walk 50 ft with 2 Turns(QC): 7 Walk 150 ft (QC): 88 Gait Assistive Device: FWW Comments/Gait Description attempted to encourage patient to ambulate to recliner. Patient declined Balance Sitting Static: Normal Sitting Dynamic: Normal Standing Static: Fair Standing Dynamic: Poor Assessment/Needs Patient will benefit from skilled PT to address functional strength and mobility to improve current LOF. Patient currently is very fearful to attempt to ambulate. Will attempt in a.m. Rehab Potential: Guarded PT One Piece Expansion Maker Hand Goals Correction Goals PT Correction Goals Time Frame: Sep 25, 2022 Roll Left & Right (QC): 4 Sit to Lying (QC): 4 Lying-Sitting on Side/Bed(QC): 4 Sit to Stand (QC): 4 Chair/Grl-to-Ipyds Xfer(QC): 4 Walk 10 feet (QC): 4 Walk 50ft with 2 Turns (QC): 4 PT Plan Problem List Problem List: Activity Tolerance, Functional Strength, Safety, Balance, Gait, Transfer, Bed Mobility Treatment/Plan Treatment Plan: Continue Plan of Care Treatment Plan: Bed Mobility, Education, Functional Activity Tasha, Functional Strength, Gait, Safety, Therapeutic Exercise, Transfers Treatment Duration: Sep 25, 2022 Frequency: 6 times per week Estimated Hrs Per Day: .25 hour per day Patient and/or Family Agrees t: Yes Time Time In: 1313 Time Out: 1325 DATE: Sep 13, 2022 Total Billed Treatment Time: 12 Total Billed Treatment 1 visit EVModC 12 min SAVANA GIVENS PT Sep 13, 2022 13:35
[2022-09-13 16:18] VITALS: BP 186/74
[2022-09-13] MEDS: RT-ALBUTEROL SULF 2.5 MG/3 ML PRE-MIX VIAL INH PRN (18:33)
[2022-09-13] MEDS: AtorvaSTATin TABLET 10 MG TABLET PO SCH (20:01)
[2022-09-13 20:23] VITALS: BP 160/65
[2022-09-13 23:40] VITALS: BP 177/72
[2022-09-14] VITALS (11 sets, daily range): BP systolic 130–170; BP diastolic 60–92
[2022-09-14] MEDS: RT-ALBUTEROL SULF 2.5 MG/3 ML PRE-MIX VIAL INH SCH ×4 (03:39→20:41)
[2022-09-14 05:25] LABS: BASOPHILS % (AUTO) 1 % (0-10); EOSINOPHILS # (AUTO) 0.5 10^3/uL (0.0-0.3); EOSINOPHILS % (AUTO) 7 % (0-10); HEMATOCRIT 22 % (35-52); LYMPHOCYTES # (AUTO) 1.1 10^3/uL (1.0-4.0); LYMPHOCYTES % (AUTO) 18 % (12-44); MEAN CORPUSCULAR HEMOGLOBIN 27 pg (25-34); MEAN CORPUSCULAR HGB CONC 30 g/dL (32-36); MEAN CORPUSCULAR VOLUME 89 fL (80-99); MEAN PLATELET VOLUME 9.8 fL (9.0-12.2); MONOCYTES # (AUTO) 0.5 10^3/uL (0.0-1.0); MONOCYTES % (AUTO) 9 % (0-12); NEUTROPHILS # (AUTO) 4.1 10^3/uL (1.8-7.8); NEUTROPHILS % (AUTO) 65 % (42-75); PLATELET COUNT 269 10^3/uL (130-400); WHITE BLOOD COUNT 6.2 10^3/uL (4.3-11.0)
[2022-09-14 05:37] LABS: HEMOGLOBIN 6.6 g/dL (11.5-16.0)
[2022-09-14 05:49] LABS: ALBUMIN 2.8 GM/DL (3.2-4.5); BILIRUBIN,TOTAL 0.4 MG/DL (0.1-1.0); CALCIUM 7.9 MG/DL (8.5-10.1); CREATININE SERUM 2.2 MG/DL (0.60-1.30); POTASSIUM 4.9 MMOL/L (3.6-5.0); TOTAL PROTEIN 5.5 GM/DL (6.4-8.2)
[2022-09-14] MEDS: inSUlin ASPART (NovoLOG) 1 UNIT/0.01 ML (CHARGE PER UNIT) SC SCH ×4 (06:16→20:25)
--- NOTE | 2022-09-14 06:23 | Progress Note - Surgery ---
[facility] 09/14/22 0623: Subjective Date Seen by a Provider: Sep 14, 2022 Time Seen by a Provider: 06:20 Subjective/Events-last exam Pt reports her SOB from yesterday improved and she is no longer having trouble catching her breath. She did not have BM overnight and perry is still draining urine. Denies nausea, vomiting, abdominal pain, sweats/chills, CP. Hgb down to 6.6 this morning from 6.8. Review of Systems General: No Chills, No Night Sweats HEENT: No Head Aches, No Visual Changes Pulmonary: No Dyspnea, No Cough Cardiovascular: No: Chest Pain, Palpitations Gastrointestinal: No: Nausea, Vomiting Genitourinary: No Dysuria, No Frequency Musculoskeletal: No: neck pain, shoulder pain Neurological: No: Weakness, Numbness Objective Exam Vital Signs Date Time Temp Pulse Resp B/P (MAP) Pulse Ox O2 Delivery O2 Flow Rate FiO2 09/14/22 04:04 36.6 57 18 140/63 (88) 99 Nasal Cannula 2.00 09/14/22 03:39 99 Nasal Cannula 2.00 09/14/22 01:00 55 09/13/22 23:40 36.5 60 16 177/72 (107) 100 Nasal Cannula 2.00 09/13/22 21:05 98 Nasal Cannula 2.00 09/13/22 20:23 36.6 62 16 160/65 (96) 95 Nasal Cannula 2.00 09/13/22 20:17 97 Nasal Cannula 2.00 09/13/22 19:00 64 09/13/22 18:33 97 Nasal Cannula 2.00 09/13/22 16:18 36.4 62 16 186/74 (111) 100 Nasal Cannula 2.00 09/13/22 14:31 99 Nasal Cannula 2.00 09/13/22 13:00 66 09/13/22 11:48 36.3 63 20 157/69 (98) 100 Nasal Cannula 2.00 09/13/22 08:30 Nasal Cannula 2.00 09/13/22 08:00 36.4 56 18 125/64 (84) 98 Nasal Cannula 2.00 09/13/22 07:22 97 Nasal Cannula 2.00 09/13/22 07:00 55 I & O 09/14/22 07:00 Intake Total 2077 ml Output Total 1475 ml Balance 602 ml Capillary Refill : Less Than 3 Seconds General Appearance: No Apparent Distress, Obese HEENT: PERRL/EOMI, Normal ENT Inspection Neck: Full Range of Motion, Supple Respiratory: Chest Non Tender, No Accessory Muscle Use, No Respiratory Distress Cardiovascular: Regular Rate, Rhythm, No JVD Peripheral Pulses: 2+ Radial Pulses (R), 2+ Radial Pulses (L) Gastrointestinal: non tender, soft Extremity: Normal Capillary Refill, Non Tender, Swelling (b/l lower extremity edema with minimal tenderness) Neurologic/Psychiatric: Alert, Normal Mood/Affect, Disoriented Skin: Normal Color, Warm/Dry Lymphatic: No Adenopathy Results Lab Laboratory Tests 09/13/22 10:13: Glucometer 143H 09/13/22 15:40: Glucometer 212H 09/13/22 20:44: Glucometer 165H 09/14/22 05:05: White Blood Count 6.2, Red Blood Count 2.49L, Hemoglobin 6.6*L, Hematocrit 22L, Mean Corpuscular Volume 89, Mean Corpuscular Hemoglobin 27, Mean Corpuscular Hemoglobin Concent 30L, Red Cell Distribution Width 15.3H, Platelet Count 269, Mean Platelet Volume 9.8, Immature Granulocyte % (Auto) 0, Neutrophils (%) (Auto) 65, Lymphocytes (%) (Auto) 18, Monocytes (%) (Auto) 9, Eosinophils (%) (Auto) 7, Basophils (%) (Auto) 1, Neutrophils # (Auto) 4.1, Lymphocytes # (Auto) 1.1, Monocytes # (Auto) 0.5, Eosinophils # (Auto) 0.5H, Basophils # (Auto) 0.0, Immature Granulocyte # (Auto) 0.0, Sodium Level 140, Potassium Level 4.9, Chloride Level 101, Carbon Dioxide Level 27, Anion Gap 12, Blood Urea Nitrogen 73H, Creatinine 2.20H, Estimat Glomerular Filtration Rate 24, BUN/Creatinine Ratio 33, Glucose Level 119H, Calcium Level 7.9L, Corrected Calcium 8.9, Total Bilirubin 0.4, Aspartate Amino Transf (AST/SGOT) 17, Alanine Aminotransferase (ALT/SGPT) 18, Alkaline Phosphatase 306H, Total Protein 5.5L, Albumin 2.8L Assessment/Plan Assessment/Plan Assessment/Plan chronic anemia possible GI bleed CAD, CKD Antiplatelet use- last Plavix dose 09/11 track and trend hgb/hct, transfuse as necessary - has received 2 units PRBC thus far no blood per rectum stool occult positive 09/12 feel likely anemia of chronic disease consider consult to nephrology conservative measures at this time. would consider egd/colonoscopy inpatient vs outpatient if benefits outweigh risks antiplatelets need held 5 days for this unless emergent. Clinical Quality Measures DVT/VTE Risk/Contraindication: Contraindications-Pharm: Other *list below* Other: anemia MODESTA CARPIO DO 09/14/22 1554: Subjective Subjective/Events-last exam Patient breathing better today she states. No abdominal pain. Hgb 6.6. Chronic perry. Denies n/v fever sweats chills shortness of breath or chest pain. Objective Exam General Appearance: No Apparent Distress, Obese HEENT: PERRL/EOMI, Normal ENT Inspection Neck: Full Range of Motion, Supple Respiratory: Chest Non Tender, No Accessory Muscle Use, No Respiratory Distress Cardiovascular: Regular Rate, Rhythm, No JVD Gastrointestinal: non tender, soft Extremity: Normal Capillary Refill, Non Tender, Swelling (b/l lower extremity edema with minimal tenderness) Neurologic/Psychiatric: Alert, Normal Mood/Affect, Disoriented Skin: Warm/Dry, Pallor Lymphatic: No Adenopathy Assessment/Plan Assessment/Plan Assessment/Plan chronic anemia possible GI bleed likely uppe CAD, CKD Antiplatelet use- last Plavix dose 09/11 track and trend hgb/hct, transfuse as necessary - has received 2 units PRBC thus far, will give one unit prbc as Hgb is 6.6 no blood per rectum stool occult positive 09/12 feel likely anemia of chronic disease but could be GI source conservative measures at this time. will obtain consent for egd tomorrow. colonoscopy inpatient vs outpatient if benefits outweigh risks antiplatelets nee d held 5 days for this unless emergent. Supervisory-Addendum Brief Verification & Attestation Participated in pt care: history, MDM, physical Personally performed: exam, history, MDM, supervision of care Care discussed with: Medical Student Procedures: n/a Results interpretation: Verified all documentation Verification and Attestation of Medical Student E/M Service A medical student performed and documented this service in my presence. I reviewed and verified all information documented by the medical student and made modifications to such information, when appropriate. I personally performed the physical exam and medical decision making. Modesta Carpio, Sep 14, 2022,15:54 EMMA BHATTI Sep 14, 2022 06:23 MODESTA CARPIO DO Sep 14, 2022 15:54
[2022-09-14] MEDS: GABAPENTIN 300 MG (NEURONTIN) CAP PO SCH ×2 (08:43→20:25)
[2022-09-14] MEDS: DOCUSATE SODIUM 100 MG (COLACE) CAP PO SCH ×2 (08:43→20:25)
[2022-09-14] MEDS: LEVOTHYROXINE 125 MCG (LEVOTHROID) TABLET PO SCH (08:43)
[2022-09-14] MEDS: VENlafaxine 37.5 MG (EFFEXOR) TAB PO SCH ×3 (08:43→20:25)
[2022-09-14] MEDS: CLOPIDOGREL 75 MG (PLAVIX) TABLET PO SCH (08:43)
[2022-09-14] MEDS: PANTOPRAZOLE 40 MG (PROTONIX) VIAL IV SCH ×2 (08:44→20:25)
--- NOTE | 2022-09-14 09:21 | Physical Therapy Daily Note ---
PT Daily Note-Current Subjective Patient agrees to PT. Pain Section J - Health Conditions 1. Rarely or not at all 2. Occasionally 3. Frequently 4. Almost constantly 8. Unable to answer Pain Effect on Sleep: 22 Pain Interference with Therapy: 2 Pain Interference w/Day-to-Day: 2 Mental Status Patient Orientation: Person, Time, Situation Attachments: Oxygen, Woody Catheter Transfers SCALE: Activities may be completed with or without assistive devices. 1-Qjjkklilym-uqlkbyo completes the activity by him/herself with no assistance from a helper. 5-Set-up or Clean-up Assistance-helper sets up or cleans up; patient completes activity. [place] assists only prior to or following the activity. 4-Supervision or Touching Assistance-helper provides verbal cues and/or touching/steadying and/or contact guard assistance as patient completes activity. Assistance may be provided throughout the activity or intermittently. 3-Partial/Moderate Assistance-helper does LESS THAN HALF the effort. [place] lifts, holds or supports trunk or limbs, but provides less than half the effort. 2-Substantial/Maximal Assistance-helper does MORE THAN HALF the effort. [place] lifts or holds trunk or limbs and provides more than half the effort. 8-Wsyycifis-hcfebe does ALL the effort. Patient does none of the effort to complete the activity. Or, the assistance of 2 or more helpers is required for the patient to complete the activity. If activity was not attempted, code reason: 7-Patient Refused. 9-Not Applicable-not attempted and the patient did not perform the activity before the current illness, exacerbation or injury. 10-Not Attempted due to Environmental Limitations-(lack of equipment, weather restraints, etc.). 88-Not Attempted due to Medical Conditions or Safety Concerns. Lying to Sitting/Side of Bed(Q: 3 Sit to Stand (QC): 3 Chair/Bch-hk-Juhxd Xfer(QC): 3 Gait Training Distance: 10' Walk 10 feet (QC): 3 Gait Assistive Device: FWW Exercises Seated Therapy Exercises: Ankle pumps, Long arc quads Seated Reps: 12 Assessment Noted increase SOA with O2 in place and SAO2 97% on 2L. Patient Hgb is 6.6. PT to increase activity as tolerated by patient. PT Animal Ecologist Goals Animal Ecologist Goals PT Animal Ecologist Goals Time Frame: Sep 25, 2022 Roll Left & Right (QC): 4 Sit to Lying (QC): 4 Lying-Sitting on Side/Bed(QC): 4 Sit to Stand (QC): 4 Chair/Rcs-lr-Khpcd Xfer(QC): 4 Walk 10 feet (QC): 4 Walk 50ft with 2 Turns (QC): 4 PT Plan Treatment/Plan Treatment Plan: Continue Plan of Care Treatment Plan: Bed Mobility, Education, Functional Activity Tasha, Functional Strength, Gait, Safety, Therapeutic Exercise, Transfers Treatment Duration: Sep 25, 2022 Frequency: 6 times per week Estimated Hrs Per Day: .25 hour per day Patient and/or Family Agrees t: Yes Time Time In: 855 Time Out: 905 DATE: Sep 14, 2022 Total Billed Treatment Time: 10 Total Billed Treatment 1 visit FA 10 min SAVANA GIVENS PT Sep 14, 2022 09:21
[2022-09-14] MEDS: amLODIPine 5 MG (NORVASC) TAB PO SCH (13:10)
[2022-09-14] MEDS ORDERED: NS IV 500 ML 500 ML IV SCH (16:00)
--- NOTE | 2022-09-14 17:14 | Progress Note ---
Subjective Subjective/Events-last exam Patient states that she is feeling better. States that she is having alittle bit of shortness of breath but she is up to chair and feeling well. Denies any blood in stool. Tolerating PO diet Review of Systems Pulmonary: Dyspnea, Cough Cardiovascular: No: Chest Pain, Palpitations, Edema Gastrointestinal: No: Nausea, Vomiting, Abdominal Pain, Diarrhea, Constipation Neurological: Weakness, Incoordination; No: Confusion Objective Exam Last Set of Vital Signs Vital Signs Date Time Temp Pulse Resp B/P (MAP) Pulse Ox O2 Delivery O2 Flow Rate FiO2 09/14/22 16:17 36.0 60 22 169/73 (105) 98 Nasal Cannula 2.00 Capillary Refill : Less Than 3 Seconds I&O Intake and Output 09/14/22 00:00 Intake Total 2327 ml Output Total 1200 ml Balance 1127 ml Intake Oral 1382 ml IV Total 945 ml Output Urine Total 1200 ml General: Alert, Oriented X3, Mild Distress (with any activity) Lungs: Other (diminished breath sounds, no crackles, basilar wheezing) Heart: Regular Rate, No Murmurs Abdomen: Normal Bowel Sounds, Soft, No Tenderness Extremities: No Edema, No Tenderness/Swelling Neuro: Strength at 5/5 X4 Ext, Cranial Nerves 3-12 NL Psych/Mental Status: Mental Status NL, Mood NL Results/Procedures Lab Laboratory Tests 09/13/22 20:44: Glucometer 165H 09/14/22 05:05: White Blood Count 6.2, Red Blood Count 2.49L, Hemoglobin 6.6*L, Hematocrit 22L, Mean Corpuscular Volume 89, Mean Corpuscular Hemoglobin 27, Mean Corpuscular Hemoglobin Concent 30L, Red Cell Distribution Width 15.3H, Platelet Count 269, Mean Platelet Volume 9.8, Immature Granulocyte % (Auto) 0, Neutrophils (%) (Auto) 65, Lymphocytes (%) (Auto) 18, Monocytes (%) (Auto) 9, Eosinophils (%) (Auto) 7, Basophils (%) (Auto) 1, Neutrophils # (Auto) 4.1, Lymphocytes # (Auto) 1.1, Monocytes # (Auto) 0.5, Eosinophils # (Auto) 0.5H, Basophils # (Auto) 0.0, Immature Granulocyte # (Auto) 0.0, Sodium Level 140, Potassium Level 4.9, Chloride Level 101, Carbon Dioxide Level 27, Anion Gap 12, Blood Urea Nitrogen 73H, Creatinine 2.20H, Estimat Glomerular Filtration Rate 24, BUN/Creatinine Ratio 33, Glucose Level 119H, Calcium Level 7.9L, Corrected Calcium 8.9, Total Bilirubin 0.4, Aspartate Amino Transf (AST/SGOT) 17, Alanine Aminotransferase (ALT/SGPT) 18, Alkaline Phosphatase 306H, Total Protein 5.5L, Albumin 2.8L 09/14/22 10:52: Glucometer 156H 09/14/22 13:27: Lab Scanned Report Transfusion Reaction Form 09/14/22 16:01: Glucometer 178H Radiology [facility] [place], [place] NAME: RO [facility] REC#: [id number] PT STATUS: REG ER : 1950 PHYSICIAN: CARLOS LARA MD ADMIT DATE: 09/10/22/ER FS Signed Date of Exam:09/10/22 CHEST 1 VIEW AP/PA ONLY EXAMINATION: Chest 1 view. HISTORY: Respiratory distress. COMPARISON: 07/14/2022. FINDINGS: The lung volumes are normal. No focal consolidation is seen. No large pleural effusion or pneumothorax is seen. The cardiomediastinal silhouette is prominent. No acute osseous abnormality is seen. IMPRESSION: Cardiomegaly. No overt pulmonary edema. Dictated by: Dictated on workstation # [id number] Dict: 09/10/221906 Trans: 09/10/221908 [facility] [id number] Interpreted by: FERNANDO GONZALEZ DO Electronically signed by: FERNANDO GONZALEZ DO 09/10/221908 Assessment/Plan Assessment/Plan (1) Severe anemia Status: Acute Assessment & Plan: 09/13: No signs of acute bleeding, continue to monitor, Normal iron panel/Thiamine/Folate, most likely 2/2 to CKD 09/14: 1 unit pRBCs, spoke with Shirin and he plans to do EGD on patient in the AM (2) Anemia in chronic kidney disease (CKD) Status: Chronic Qualifiers: Qualified Codes: N18.4 - Chronic kidney disease, stage 4 (severe); D63.1 - Anemia in chronic kidney disease (3) Acute on chronic renal failure Status: Acute Assessment & Plan: 09/13: Baseline upon review of chart 1.2-1.8, Stopping IVFs today due to respiratory distress 09/14: Considering lasix but Cr is trending up slowly, will repeat CMP in AM Qualifiers: Qualified Codes: N17.9 - Acute kidney failure, unspecified; N18.4 - Chronic kidney disease, stage 4 (severe) (4) COPD (chronic obstructive pulmonary disease) Status: Chronic Assessment & Plan: 09/13: Titrate oxygen as tolerated, MAT protocol Qualifiers: Qualified Codes: J44.9 - Chronic obstructive pulmonary disease, unspecified (5) HTN (hypertension) Status: Chronic Qualifiers: Qualified Codes: I10 - Essential (primary) hypertension (6) HLD (hyperlipidemia) Status: Chronic Qualifiers: Qualified Codes: E78.5 - Hyperlipidemia, unspecified (7) T2DM (type 2 diabetes mellitus) Status: Chronic Qualifiers: Qualified Codes: E11.22 - Type 2 diabetes mellitus with diabetic chronic kidney disease; N18.4 - Chronic kidney disease, stage 4 (severe); Z79.4 - half-way (current) use of insulin (8) CAD (coronary artery disease) Status: Chronic Qualifiers: Qualified Codes: I25.10 - Atherosclerotic heart disease of jackson coronary artery without angina pectoris (9) Hypothyroidism Status: Chronic Qualifiers: Qualified Codes: E03.9 - Hypothyroidism, unspecified (10) Physical debility Status: Chronic Assessment & Plan: 09/13: PT ordered Clinical Quality Measures DVT/VTE Risk/Contraindication: Contraindications-Pharm: Other *list below* Other: anemia ODILON SOSA MD Sep 14, 2022 17:14
[2022-09-14] MEDS: AtorvaSTATin TABLET 10 MG TABLET PO SCH (20:25)
[2022-09-15] MEDS: RT-ALBUTEROL SULF 2.5 MG/3 ML PRE-MIX VIAL INH SCH ×3 (02:44→15:14)
[2022-09-15 04:00] VITALS: BP 150/75
[2022-09-15] MEDS: inSUlin ASPART (NovoLOG) 1 UNIT/0.01 ML (CHARGE PER UNIT) SC SCH ×2 (05:29→12:01)
[2022-09-15 06:15] LABS: BASOPHILS # (AUTO) 0.1 10^3/uL (0.0-0.1); BASOPHILS % (AUTO) 1 % (0-10); EOSINOPHILS # (AUTO) 0.5 10^3/uL (0.0-0.3); EOSINOPHILS % (AUTO) 6 % (0-10); HEMATOCRIT 26 % (35-52); HEMOGLOBIN 8.1 g/dL (11.5-16.0); LYMPHOCYTES # (AUTO) 0.9 10^3/uL (1.0-4.0); LYMPHOCYTES % (AUTO) 12 % (12-44); MEAN CORPUSCULAR HEMOGLOBIN 27 pg (25-34); MEAN CORPUSCULAR HGB CONC 31 g/dL (32-36); MEAN CORPUSCULAR VOLUME 88 fL (80-99); MEAN PLATELET VOLUME 10.1 fL (9.0-12.2); MONOCYTES # (AUTO) 0.5 10^3/uL (0.0-1.0); MONOCYTES % (AUTO) 6 % (0-12); NEUTROPHILS # (AUTO) 5.5 10^3/uL (1.8-7.8); NEUTROPHILS % (AUTO) 75 % (42-75); PLATELET COUNT 287 10^3/uL (130-400); WHITE BLOOD COUNT 7.3 10^3/uL (4.3-11.0)
[2022-09-15 06:34] LABS: ALBUMIN 2.9 GM/DL (3.2-4.5)
[2022-09-15 06:35] LABS: POTASSIUM 4.8 MMOL/L (3.6-5.0)
[2022-09-15 06:36] LABS: CALCIUM 8.2 MG/DL (8.5-10.1)
[2022-09-15 06:37] LABS: TOTAL PROTEIN 5.8 GM/DL (6.4-8.2)
--- NOTE | 2022-09-15 06:38 | Progress Note - Surgery ---
[facility] 09/15/22 0638: Subjective Date Seen by a Provider: Sep 15, 2022 Time Seen by a Provider: 06:32 Subjective/Events-last exam Today pt reports some knee pain that is chronic for her, otherwise doing ok. She did not have a BM overnight but is passing gas. Received 1 unit prbc last night as hgb was 6.6, up to 8.1 this morning. Denies abdominal pain, SOB, CP, N/V, sweats, chills. Review of Systems General: No Chills, No Night Sweats HEENT: No Head Aches, No Visual Changes Pulmonary: No Dyspnea, No Cough Cardiovascular: No: Chest Pain, Palpitations Gastrointestinal: No: Nausea, Vomiting, Abdominal Pain Genitourinary: No Dysuria, No Frequency Musculoskeletal: other (b/l knee pain-chronic); No: neck pain, shoulder pain Neurological: No: Weakness, Numbness Objective Exam Vital Signs Date Time Temp Pulse Resp B/P (MAP) Pulse Ox O2 Delivery O2 Flow Rate FiO2 09/15/22 04:00 36.2 61 20 150/75 (100) 96 Nasal Cannula 2.00 2.00 09/15/22 02:44 100 Nasal Cannula 2.00 09/15/22 01:00 60 09/14/22 23:47 36.1 60 20 130/60 (83) 96 Nasal Cannula 2.00 09/14/22 20:41 98 Nasal Cannula 2.00 09/14/22 20:30 100 Nasal Cannula 2.00 09/14/22 19:54 150/70 (96) 09/14/22 19:48 36.7 60 20 150/70 100 Nasal Cannula 2.00 09/14/22 19:47 36.4 60 22 166/73 (104) 100 2.00 09/14/22 19:00 61 09/14/22 18:35 36.6 60 14 144/90 100 Nasal Cannula 2.00 09/14/22 17:50 36.5 60 16 148/92 100 Nasal Cannula 2.00 09/14/22 17:30 59 16 152/90 Nasal Cannula 09/14/22 16:17 36.0 60 22 169/73 (105) 98 Nasal Cannula 2.00 09/14/22 14:26 100 Nasal Cannula 2.00 09/14/22 13:47 63 09/14/22 12:00 36.4 61 15 166/71 (102) 100 Nasal Cannula 2.00 09/14/22 09:34 99 Nasal Cannula 2.00 09/14/22 08:30 Nasal Cannula 2.00 09/14/22 08:00 36.4 77 15 170/72 (104) 98 Nasal Cannula 2.00 09/14/22 07:46 61 I & O 09/15/22 07:00 Intake Total 1245 ml Output Total 1300 ml Balance -55 ml Capillary Refill : Less Than 3 Seconds General Appearance: No Apparent Distress, Obese HEENT: PERRL/EOMI, Normal ENT Inspection Neck: Full Range of Motion, Supple Respiratory: Chest Non Tender, No Accessory Muscle Use, No Respiratory Distress Cardiovascular: Regular Rate, Rhythm, No JVD, Normal Peripheral Pulses Peripheral Pulses: 2+ Radial Pulses (R), 2+ Radial Pulses (L) Gastrointestinal: non tender, soft Extremity: Normal Capillary Refill, Non Tender, Swelling (b/l lower extremity edema with minimal tenderness) Neurologic/Psychiatric: Alert, Normal Mood/Affect Skin: Warm/Dry, Pallor Lymphatic: No Adenopathy Results Lab Laboratory Tests 09/14/22 10:52: Glucometer 156H 09/14/22 13:27: Lab Scanned Report Transfusion Reaction Form 09/14/22 16:01: Glucometer 178H 09/14/22 20:24: Glucometer 151H 09/15/22 05:27: Glucometer 171H 09/15/22 06:12: White Blood Count 7.3, Red Blood Count 2.96L, Hemoglobin 8.1#L, Hematocrit 26L, Mean Corpuscular Volume 88, Mean Corpuscular Hemoglobin 27, Mean Corpuscular Hemoglobin Concent 31L, Red Cell Distribution Width 15.3H, Platelet Count 287, Mean Platelet Volume 10.1, Immature Granulocyte % (Auto) 0, Neutrophils (%) (Auto) 75, Lymphocytes (%) (Auto) 12, Monocytes (%) (Auto) 6, Eosinophils (%) (Auto) 6, Basophils (%) (Auto) 1, Neutrophils # (Auto) 5.5, Lymphocytes # (Auto) 0.9L, Monocytes # (Auto) 0.5, Eosinophils # (Auto) 0.5H, Basophils # (Auto) 0.1, Immature Granulocyte # (Auto) 0.0 Assessment/Plan Assessment/Plan Assessment/Plan chronic anemia possible GI bleed likely upper CAD, CKD Antiplatelet use- last Plavix dose 09/11 track and trend hgb/hct, transfuse as necessary - has received 3 units PRBC thus far no blood per rectum stool occult positive 09/12 NPO feel likely anemia of chronic disease but could be GI source conservative measures at this time. will obtain consent for egd tomorrow. colonoscopy inpatient vs outpatient if benefits outweigh risks antiplatelets need held 5 days for this unless emergent. Clinical Quality Measures DVT/VTE Risk/Contraindication: Contraindications-Pharm: Other *list below* Other: anemia MODESTA CARPIO DO 09/15/22 0836: Subjective Subjective/Events-last exam No new complaints. Received 1 unit prbc and Hgb up to 8.1. No abdominal pain. Shortness of breath on and off. Currently NPO. Denies n/v fever sweats chills or chest pain at this time. Objective Exam General Appearance: No Apparent Distress, Obese HEENT: PERRL/EOMI, Normal ENT Inspection Neck: Full Range of Motion, Supple Respiratory: Chest Non Tender, No Accessory Muscle Use, No Respiratory Distress Cardiovascular: Regular Rate, Rhythm, No JVD Gastrointestinal: non tender, soft Extremity: Normal Capillary Refill, Non Tender, Swelling (b/l lower extremity edema with minimal tenderness) Neurologic/Psychiatric: Alert, Normal Mood/Affect Skin: Warm/Dry, Pallor Lymphatic: No Adenopathy Assessment/Plan Assessment/Plan Assessment/Plan chronic anemia possible GI bleed likely upper CAD, CKD Antiplatelet use- last Plavix dose 09/11 track and trend hgb/hct, transfuse as necessary - has received 3 units PRBC thus far no blood per rectum stool occult positive 09/12 NPO feel likely anemia of chronic disease but could be GI source conservative measures at this time. will obtain consent for egd today. colonoscopy inpatient vs outpatient if benefits outweigh risks antiplatelets need held 5 days for this unless emergent. Supervisory-Addendum Brief Verification & Attestation Participated in pt care: history, MDM, physical Personally performed: exam, history, MDM, supervision of care Care discussed with: Medical Student Procedures: n/a Results interpretation: Verified all documentation Verification and Attestation of Medical Student E/M Service A medical student performed and documented this service in my presence. I reviewed and verified all information documented by the medical student and made modifications to such information, when appropriate. I personally performed the physical exam and medical decision making. Modesta Carpio, Sep 15, 2022,08:36 EMMA BHATTI Sep 15, 2022 06:38 MODESTA CARPIO DO Sep 15, 2022 08:36
[2022-09-15 06:39] LABS: BILIRUBIN,TOTAL 0.6 MG/DL (0.1-1.0)
[2022-09-15 06:41] LABS: CREATININE SERUM 1.99 MG/DL (0.60-1.30)
[2022-09-15 07:53] VITALS: BP 137/75
[2022-09-15] MEDS ORDERED: LACTATED RINGERS 1,000 ML IV STA (08:27)
[2022-09-15] MEDS: HURRICAINE EXT TUBE (BENZOCAINE) XX PRN ×2 (08:47→09:00)
[2022-09-15] MEDS: VENlafaxine 37.5 MG (EFFEXOR) TAB PO SCH ×2 (08:57→12:01)
[2022-09-15] MEDS: GABAPENTIN 300 MG (NEURONTIN) CAP PO SCH (08:57)
[2022-09-15] MEDS: PANTOPRAZOLE 40 MG (PROTONIX) VIAL IV SCH (08:57)
[2022-09-15] MEDS: DOCUSATE SODIUM 100 MG (COLACE) CAP PO SCH (08:57)
[2022-09-15] MEDS ORDERED: proPOfol 200 MG/20 ML (DIPRIVAN) VIAL IV ONE (09:07)
[2022-09-15 09:22] VITALS: BP 160/62
--- NOTE | 2022-09-15 09:38 | Anesthesia-General Post-Op ---
MAC Patient Condition Mental Status/LOC: Same as Preop Cardiovascular: Satisfactory Nausea/Vomiting: Absent Respiratory: Satisfactory Pain: Controlled Complications: Absent Post Op Complications Complications None Follow Up Care/Instructions Patient Instructions None needed. Anesthesiology Discharge Order Discharge Order Patient is doing well, no complaints, stable vital signs, no apparent adverse anesthesia problems. No complications reported per nursing. MERLYN MACDONALD DO Sep 15, 2022 09:38
[2022-09-15] MEDS: LEVOTHYROXINE 125 MCG (LEVOTHROID) TABLET PO SCH (10:25)
[2022-09-15] MEDS: CLOPIDOGREL 75 MG (PLAVIX) TABLET PO SCH (10:25)
[2022-09-15] MEDS: amLODIPine 5 MG (NORVASC) TAB PO SCH (10:25)
[2022-09-15 11:38] VITALS: BP 157/79
[2022-09-15] MEDS ORDERED: AMLO-250 PO (14:24)
--- NOTE | 2022-09-15 14:29 | Discharge Summary ---
Discharge Summary Reconcile Patient Problems Problems Reviewed?: Yes Hospital Course Hospital Course Date of Admission: Sep 12, 2022 at 14:11 Admission Diagnosis : Family Physician/Provider: Patricio Barnard MD Date of Discharge: 09/15/22 Discharge Diagnosis: Severe Anemia Anemia of CKD Acute on Chronic CKD COPD HTN HLD IDDM CAD Hospital Course: 71 yo F that presented with increased shortness of breath found to profoundly anemic. She was transfused several units of blood during admission. Acute workup found some mild gastritis but no formal cause of anemia. Patient is unlikely to be able to tolerate prep and procedure to get colonoscopy. Stopped ASA and continued plavix. Patient would likely benefit from Epogen due to CKD. Labs and Pending Lab Test: Laboratory Tests 09/14/22 16:01: Glucometer 178H 09/14/22 20:24: Glucometer 151H 09/15/22 05:27: Glucometer 171H 09/15/22 06:12: White Blood Count 7.3, Red Blood Count 2.96L, Hemoglobin 8.1#L, Hematocrit 26L, Mean Corpuscular Volume 88, Mean Corpuscular Hemoglobin 27, Mean Corpuscular Hemoglobin Concent 31L, Red Cell Distribution Width 15.3H, Platelet Count 287, Mean Platelet Volume 10.1, Immature Granulocyte % (Auto) 0, Neutrophils (%) (Auto) 75, Lymphocytes (%) (Auto) 12, Monocytes (%) (Auto) 6, Eosinophils (%) (Auto) 6, Basophils (%) (Auto) 1, Neutrophils # (Auto) 5.5, Lymphocytes # (Auto) 0.9L, Monocytes # (Auto) 0.5, Eosinophils # (Auto) 0.5H, Basophils # (Auto) 0.1, Immature Granulocyte # (Auto) 0.0, Sodium Level 140, Potassium Level 4.8, Chloride Level 103, Carbon Dioxide Level 26, Anion Gap 11, Blood Urea Nitrogen 66H, Creatinine 1.99H, Estimat Glomerular Filtration Rate 27, BUN/Creatinine Ratio 33, Glucose Level 186H, Calcium Level 8.2L, Corrected Calcium 9.1, Total Bilirubin 0.6, Aspartate Amino Transf (AST/SGOT) 19, Alanine Aminotransferase (ALT/SGPT) 22, Alkaline Phosphatase 387H, Total Protein 5.8L, Albumin 2.9L 09/15/22 11:24: Glucometer 245H Microbiology 09/14/22 MRSA Screen - Final, Complete Home Meds Active Reported Doxepin HCl 6 Mg Tablet 6 Mg PO HS PRN ALPRAZolam 0.25 Mg Tablet 0.25 Mg PO Q8H PRN Glucagon Emergency Kit (Glucagon,Human Recombinant) 1 Mg Soln 1 Mg IJ DAILY PRN Miralax (Polyethylene Glycol 3350) 17 Gram Powd.pack 17 Gm PO DAILY PRN Nystatin 100,000 Unit/Ml Oral.susp 5 Ml PO QID Bumetanide 2 Mg Tablet 2 Mg PO BID Potassium Chloride 20 Meq Tab.er.prt 20 Meq PO DAILY Plavix (Clopidogrel Bisulfate) 75 Mg Tablet 75 Mg PO DAILY Atorvastatin Calcium 10 Mg Tablet 10 Mg PO HS Aspirin 81 Mg Tab.chew 81 Mg PO DAILY Levemir (Insulin Determir) 100 Unit/Ml Soln 20 Units SQ HS Novolog (Insulin Aspart) 100 Unit/Ml Cartridge 14 Units SQ TIDAC Tylenol Extra Strength (Acetaminophen) 500 Mg Tablet 500 Mg PO Q8H PRN Venlafaxine HCl 37.5 Mg Tab 37.5 Mg PO TID Neurontin (Gabapentin) 300 Mg Capsule 600 Mg PO HS TAKES 2 (300MG) CAPS Neurontin (Gabapentin) 300 Mg Capsule 300 Mg PO DAILY Levothyroxine (Levothyroxine Sodium) 125 Mcg Capsule 125 Mcg PO DAILY Carvedilol 6.25 Mg Tablet 6.25 Mg PO BID Ventolin Hfa (Albuterol Sulfate) 1 Puff Puff 2 Puff IH Q4H PRN Skilled NF Admit to: Certification (SNF) I certify that SNF services are required to be given on an inpatient basis because of the above named patient's need for fpc care on a continu ing basis for the conditions(s) for which he/she was receiving inpatient hospital services prior to his/her transfer to the SNF. Prison Facility Order: Nursing Services, Physical Therapy-Evaluate & Treat, Wound Care-Eval/Treat Oxygen Delivery Method: Nasal Cannula Discharge Diet: ADA Diet Daily Activity as Tolerated: Yes Resuscitation Status: Do Not Resuscitate Odilon De Jesus Sep 15, 2022 14:22 Discharge Physical Exam General: Alert, Oriented X3, Mild Distress (with minimal activity) Lungs: Other (diminished breath sounds, normal work of breathing) Heart: Regular Rate, No Murmurs Abdomen: Normal Bowel Sounds, Soft, No Tenderness Extremities: No Edema, No Tenderness/Swelling Neuro: Normal Speech Psych/Mental Status: Mental Status NL, Mood NL ODILON DE JESUS MD Sep 15, 2022 14:22
--- NOTE | 2022-09-15 14:50 | Physical Therapy Daily Note ---
PT Daily Note-Current Subjective Pt laying L sidelying with wedge positioning. Per Nursing, pt is okay to change positions. Pain Section J - Health Conditions 1. Rarely or not at all 2. Occasionally 3. Frequently 4. Almost constantly 8. Unable to answer Pain Effect on Sleep: 22 Pain Interference with Therapy: 2 Pain Interference w/Day-to-Day: 2 Mental Status Patient Orientation: Person, Place, Situation Attachments: Oxygen Transfers SCALE: Activities may be completed with or without assistive devices. 6-Pfzdqddrhs-sljvzth completes the activity by him/herself with no assistance from a helper. 5-Set-up or Clean-up Assistance-helper sets up or cleans up; patient completes activity. [place] assists only prior to or following the activity. 4-Supervision or Touching Assistance-helper provides verbal cues and/or touching/steadying and/or contact guard assistance as patient completes activity. Assistance may be provided throughout the activity or intermittently. 3-Partial/Moderate Assistance-helper does LESS THAN HALF the effort. [place] lifts, holds or supports trunk or limbs, but provides less than half the effort. 2-Substantial/Maximal Assistance-helper does MORE THAN HALF the effort. [place] lifts or holds trunk or limbs and provides more than half the effort. 8-Nvecwwgpb-yvotsl does ALL the effort. Patient does none of the effort to complete the activity. Or, the assistance of 2 or more helpers is required for the patient to complete the activity. If activity was not attempted, code reason: 7-Patient Refused. 9-Not Applicable-not attempted and the patient did not perform the activity before the current illness, exacerbation or injury. 10-Not Attempted due to Environmental Limitations-(lack of equipment, weather restraints, etc.). 88-Not Attempted due to Medical Conditions or Safety Concerns. Exercises Supine Ex: Ankle pumps, Quad Set, Glut sets, Heel Slides, Hip abd/add Supine Reps: 15 Treatments Pt able to roll from L sidelying to Supine after wedge removed. Pt completes Supine EX and resting in bed at end of tx. All needs met, call light in hand. Assessment Current Status: Fair Progress Pt is very fatigued. PT Assistant Food Service Manager Goals Assistant Food Service Manager Goals PT Assistant Food Service Manager Goals Time Frame: Sep 25, 2022 Roll Left & Right (QC): 4 Sit to Lying (QC): 4 Lying-Sitting on Side/Bed(QC): 4 Sit to Stand (QC): 4 Chair/Hrr-ul-Yvmxr Xfer(QC): 4 Walk 10 feet (QC): 4 Walk 50ft with 2 Turns (QC): 4 PT Plan Problem List Problem List: Activity Tolerance, Functional Strength, Transfer Treatment/Plan Treatment Plan: Continue Plan of Care Treatment Plan: Bed Mobility, Education, Functional Activity Tasha, Functional Strength, Gait, Safety, Therapeutic Exercise, Transfers Treatment Duration: Sep 25, 2022 Frequency: 6 times per week Estimated Hrs Per Day: .25 hour per day Patient and/or Family Agrees t: Yes Time Time In: 1425 Time Out: 1441 DATE: Sep 15, 2022 Total Billed Treatment Time: 16 Total Billed Treatment 1, EX (16m) QUEENIE FONTENOT PTA Sep 15, 2022 14:50
[2022-09-15 16:59] VITALS: BP 157/79
--- NOTE | 2022-09-16 05:40 | OPERATIVE REPORT ---
DATE OF SERVICE: 09/15/2022 PREOPERATIVE DIAGNOSES: Anemia, suspected upper gastrointestinal bleed. POSTOPERATIVE DIAGNOSES: Gastritis, small hiatal hernia, esophageal varices. PROCEDURE: EGD with biopsies. SURGEON: Modesta Carpio DO ANESTHESIA: Per CISTERN ROOM OPERATOR ESTIMATED BLOOD LOSS: None. COMPLICATIONS: None. INDICATIONS: The patient is a 71-year-old female with anemia. She understands risks and benefits of procedure and wishes to proceed. Suspected possible GI bleed. Consent was signed in the chart. DESCRIPTION OF PROCEDURE: The patient was taken to the endoscopy suite, placed in left lateral recumbent position. Timeout was performed. Scope was inserted in mouth, down the esophagus, stomach and into duodenum without difficulty. No polyps, mass, ulceration within the duodenum. Scope was then slowly retracted back into the stomach where had some antral gastritis. Biopsy of the antrum was obtained. Scope was retroflexed, noting a small hiatal hernia. No other pathology. Scope was returned to its normal position, slowly withdrawn to distal esophagus. Biopsy of GE junction was obtained. Also noted in distal esophageal varices. No other pathology. Scope was then slowly retracted back until completely removed. The patient tolerated the procedure well, no complications, taken to recovery room in stable condition. RECOMMENDATIONS: The patient will follow up on pathology and we will start her back on diet. She will continue on Protonix. Job ID: [id number] DocumentID: [id number] Dictated Date: 09/15/2022 18:26:26 Mall Manager Date: 09/16/2022 05:38:00 Dictated By: MODESTA CARPIO DO
== END 2022-09-15 16:57 | DRG 292 ==
LOC: EDUNIT# 16:00 → ER FS 16:01 → 4TH 20:30 → OBSVTOIN 09-12 14:11
PROVIDERS: ADMIT Surgery; ATTEND Surgery
PROC: 0DB68ZX Excision of Stomach, Via Natural or Artificial Opening Endoscopic, Diagnostic (ICD-10-PCS; 2022-09-15)
PROC: 0DB48ZX Excision of Esophagogastric Junction, Via Natural or Artificial Opening Endoscopic, Diagnostic (ICD-10-PCS; principal; 2022-09-15 08:45)
DX: I13.0 Hypertensive heart and chronic kidney disease with heart failure and stage 1 through stage 4 chronic kidney disease, or unspecified chronic kidney disease (principal); I85.00 Esophageal varices without bleeding; N18.4 Chronic kidney disease, stage 4 (severe); Z68.43 Body mass index [BMI] 50.0-59.9, adult; N17.9 Acute kidney failure, unspecified; D63.1 Anemia in chronic kidney disease; I25.10 Atherosclerotic heart disease of native coronary artery without angina pectoris; E11.22 Type 2 diabetes mellitus with diabetic chronic kidney disease; I50.9 Heart failure, unspecified; J44.9 Chronic obstructive pulmonary disease, unspecified; E66.9 Obesity, unspecified; E03.9 Hypothyroidism, unspecified; E78.00 Pure hypercholesterolemia, unspecified; M19.90 Unspecified osteoarthritis, unspecified site; Z20.822 Contact with and (suspected) exposure to COVID-19; R53.81 Other malaise; K29.70 Gastritis, unspecified, without bleeding; K44.9 Diaphragmatic hernia without obstruction or gangrene; Z79.02 Long term (current) use of antithrombotics/antiplatelets; Z90.12 Acquired absence of left breast and nipple; Z85.3 Personal history of malignant neoplasm of breast; Z85.72 Personal history of non-Hodgkin lymphomas; Z99.81 Dependence on supplemental oxygen; Z79.82 Long term (current) use of aspirin; Z79.4 Long term (current) use of insulin; Z79.890 Hormone replacement therapy; Z79.899 Other long term (current) drug therapy
CPT/HCPCS: 36415; 36430; 71045; 80048; 80053; 82274; 82607; 82668; 82728; 82746; 82947; 83540; 83550; 83735; 83880; 84100; 85014; 85018; 85025; 86141; 86850; 86900; 86901; 86920; 87081; 87636; 94640; 94760; G0378

== ENCOUNTER 2022-11-13 12:46 | Emergency (ER) | payer MEDICARE, MEDICAID ==
[2022-11-13 12:46] VITALS: BP 184/59
[~2022-11-13 12:46] MED LIST changes: -CIPR500T5 PO
--- NOTE | 2022-11-13 13:12 | ED General ---
General Chief Complaint: Altered Mental Status Stated Complaint: ANEMIC Source of Information: Patient, EMS, [facility] Records, Old Records Exam Limitations: No Limitations History of Present Illness Date Seen by Provider: Nov 13, 2022 Time Seen by Provider: 12:48 Initial Comments 72-year-old female with past medical history of CHF, CKD, chronic anemia, type 2 diabetes, cellulitis, COPD on baseline 3 L oxygen coming in via EMS from the senior care due to altered mental status. She was less responsive this morning and when they checked her blood sugar it was in the 40s. They gave her glucagon increasing it to around 127. They sent labs and her hemoglobin was 7.5 with hematocrit of 24. Her creatinine was just over 2. They held her insulin and referred her here. She denies any chest pain, shortness of breath, abdominal pain, nausea, vomiting, diarrhea, focal weakness or numbness, headache, vision changes, or any other concerns. She states she felt weird earlier when her sugar was low, and that she feels normal right now. She has a Woody in place as well. Allergies and Home Medications Allergies Coded Allergies: ceftriaxone (Verified Allergy, Intermediate, N/V/D, 04/18/22) adhesive tape (Unverified Allergy, Unknown, 12/24/19) codeine (Verified Allergy, Unknown, Nausea, 06/17/22) morphine (Verified Allergy, Unknown, Nausea, 06/17/22) penicillin G (Verified Allergy, Unknown, 12/24/19) Patient Home Medication List Home Medication List Reviewed: Yes ALPRAZolam (ALPRAZolam) 0.25 Mg Tablet, 0.25 MG PO Q8H PRN for ANXIETY, (Reported) Entered as Reported by: BRAXTON STYLES on 09/13/22 0836 Acetaminophen (Tylenol Extra Strength) 500 Mg Tablet, 500 MG PO Q8H PRN for PAIN-MILD (1-4), (Reported) Entered as Reported by: BRAXTON STYLES on 04/19/22 1347 Albuterol Sulfate (Ventolin Hfa) 1 Puff Puff, 2 PUFF IH Q4H PRN for SHORTNESS OF BREATH, (Reported) Entered as Reported by: BASHIR SALEH on 09/15/21 1043 Amlodipine Besylate (Amlodipine Besylate) 5 Mg Tablet, 5 MG PO DAILY Prescribed by: ODILON SOSA on 09/15/22 1424 Atorvastatin Calcium (Atorvastatin Calcium) 10 Mg Tablet, 10 MG PO HS, (Reported) Entered as Reported by: BASHIR SALEH on 06/18/22 1242 Bumetanide (Bumetanide) 2 Mg Tablet, 2 MG PO BID, (Reported) Entered as Reported by: BRAXTON STYLES on 09/13/22 0827 Carvedilol (Carvedilol) 6.25 Mg Tablet, 6.25 MG PO BID, (Reported) Entered as Reported by: BRAXTON STYLES on 04/19/22 1344 Clopidogrel Bisulfate (Plavix) 75 Mg Tablet, 75 MG PO DAILY, (Reported) Entered as Reported by: BASHIR SALEH on 06/18/22 1242 Doxepin HCl (Doxepin HCl) 6 Mg Tablet, 6 MG PO HS PRN for INSOMNIA, (Reported) Entered as Reported by: BRAXTON STYLES on 09/13/22 0838 Gabapentin (Neurontin) 300 Mg Capsule, 300 MG PO DAILY, (Reported) Entered as Reported by: BRAXTON STYLES on 04/19/22 1345 Gabapentin (Neurontin) 300 Mg Capsule, 600 MG PO HS, (Reported) Entered as Reported by: BRAXTON STYLES on 04/19/22 1346 Glucagon,Human Recombinant (Glucagon Emergency Kit) 1 Mg Soln, 1 MG IJ DAILY PRN for HYPOGLYCEMIA, (Reported) Entered as Reported by: BRAXTON STYLES on 09/13/22 0833 Insulin Aspart (Novolog) 100 Unit/Ml Cartridge, 14 UNITS SQ TIDAC, (Reported) Entered as Reported by: BRAXTON STYLES on 04/19/22 1348 Insulin Determir (Levemir) 100 Unit/Ml Soln, 20 UNITS SQ HS, (Reported) Entered as Reported by: BASHIR SALEH on 06/18/22 124 Levothyroxine Sodium (Levothyroxine) 125 Mcg Capsule, 125 MCG PO DAILY, (Reported) Entered as Reported by: BRAXTON STYLES on 04/19/22 1344 Nystatin (Nystatin) 100,000 Unit/Ml Oral.susp, 5 ML PO QID, (Reported) Entered as Reported by: BRAXTON STYLES on 09/13/22 08 Polyethylene Glycol 3350 (Miralax) 17 Gram Powd.pack, 17 GM PO DAILY PRN for CONSTIPATION-1ST LINE, (Reported) Entered as Reported by: BRAXTON STYLES on 09/13/22 0828 Potassium Chloride (Potassium Chloride) 20 Meq Tab.er.prt, 20 MEQ PO DAILY, (Reported) Entered as Reported by: BRAXTON STYLES on 09/13/22 0827 Venlafaxine HCl (Venlafaxine HCl) 37.5 Mg Tab, 37.5 MG PO TID, (Reported) Entered as Reported by: BRAXTON STYLES on 04/19/22 1346 Review of Systems Review of Systems Constitutional: No fever EENTM: no symptoms reported Respiratory: no symptoms reported Cardiovascular: no symptoms reported Gastrointestinal: no symptoms reported Genitourinary: no symptoms reported Musculoskeletal: no symptoms reported Skin: no symptoms reported Psychiatric/Neurological: See HPI All Other Systems Reviewed Negative Unless Noted: Yes Past Lclpxio-Cjbhhb-Iazayj Hx Patient Social History Tobacco Use?: No Immunizations Up To Date First/Initial COVID19 Vaccinat: Moderna Second COVID19 Vaccination Alok: Third COVID19 Vaccination Date: Seasonal Allergies Seasonal Allergies: No Past Medical History Surgery/Hospitalization HX: IDDM;left mastectomy; lymphadema; COPD; CAD; CKD; Hyperlipidemia; Obesity; HTN; Hypthyroidism; Aortic valve stenosis; Type 2 DM; Anemia Surgeries: Yes (R Masectomy, R Augmentation, ) Gallbladder, Hysterectomy, Orthopedic, Thyroidectomy Respiratory: Yes COPD Cardiac: Yes (Congestive heart failure) Chronic Edema/Swelling, Coronary Artery Disease, High Cholesterol, Hypertension, Valvular Heart Disease Neurological: No 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 Disorders: 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 Genitourinary: Yes Renal Failure Gastrointestinal: No Musculoskeletal: Yes (ARTHRITIS) Arthritis Endocrine: Yes Diabetes, Insulin dep, Hypothyroidsim HEENT: No Cancer: Yes Breast, Lymphoma Did You Recieve Any Treatments: Yes What Type of Treatment Did You: Surgical Intervention Psychosocial: No Integumentary: No Blood Disorders: No Family Medical History Cancer Physical Exam Vital Signs Vital Signs - First Documented 11/13/22 12:46 Temp 36.0 Pulse 66 Resp 16 B/P (MAP) 184/59 (100) Pulse Ox 99 O2 Delivery Nasal Cannula O2 Flow Rate 2.00 Capillary Refill : Height, Weight, BMI Height: '" Weight: lbs. oz. kg; 52.61 BMI Method: General Appearance: No Apparent Distress, WD/WN, Other (Chronically ill- appearing but not toxic) Eyes: Bilateral Eye Normal Inspection HEENT: PERRL/EOMI, Normal ENT Inspection, Pharynx Normal Neck: Full Range of Motion, Normal Inspection, Non Tender, Supple Respiratory: Chest Non Tender, Lungs Clear, Normal Breath Sounds, No Accessory Muscle Use, No Respiratory Distress Cardiovascular: Regular Rate, Rhythm, Normal Peripheral Pulses Gastrointestinal: Normal Bowel Sounds, Non Tender, Soft; No Distended, No Guarding Back: Normal Inspection, No CVA Tenderness Extremity: Normal Capillary Refill, Normal Range of Motion, Non Tender, No Calf Tenderness, Pedal Edema Neurologic/Psychiatric: Alert, Oriented x3, No Motor/Sensory Deficits, Normal Mood/Affect, 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 Norm as Tested Skin: Normal Color, Warm/Dry Lymphatic: No Adenopathy Focused Exam Lactate Level 11/13/22 13:00: Lactic Acid Level 0.67 Lactic Acid Level Laboratory Tests Test 11/13/22 13:00 Lactic Acid Level 0.67 MMOL/L (0.50-2.00) Progress/Results/Core Measures Suspected Sepsis SIRS Temperature: Pulse: Respiratory Rate: Blood Pressure / Mean: 11/13/22 13:00: Lactic Acid Level 0.67 Laboratory Tests 11/13/22 13:00: Creatinine 2.22H Results/Orders Lab Results Laboratory Tests Test 11/13/22 12:56 11/13/22 13:00 Range/Units Glucometer 218 H 70-110 MG/DL Sodium Level 139 135-145 MMOL/L Potassium Level 4.9 3.6-5.0 MMOL/L Chloride Level 100 98-107 MMOL/L Carbon Dioxide Level 28 21-32 MMOL/L Anion Gap 11 5-14 MMOL/L Blood Urea Nitrogen 81 H 7-18 MG/DL Creatinine 2.22 H 0.60-1.30 MG/DL Estimat Glomerular Filtration Rate 23 BUN/Creatinine Ratio 36 Glucose Level 241 H 70-105 MG/DL Lactic Acid Level 0.67 0.50-2.00 MMOL/L Calcium Level 8.3 L 8.5-10.1 MG/DL My Orders Orders - ISABELLE SIGALA MD Basic Metabolic Panel (11/13/22 13:00) Lactic Acid Analyzer (11/13/22 13:00) Blood Culture (11/13/22 13:00) Urine Culture (11/13/22 13:00) Chest 1 View Ap/Pa Only (11/13/22 13:00) Ed Iv/Invasive Line Start (11/13/22 13:00) Ciprofloxacin Iv 400mg/200ml (Cipro Iv S (11/13/22 13:15) Medications Given in ED Current Medications Medications Dose Ordered Sig/Francy Route Start Time Stop Time Status Last Admin Dose Admin Ciprofloxacin/ Dextrose 200 ml @ 200 mls/hr ONCE ONCE IV 11/13/22 13:15 11/13/22 14:14 11/13/22 13:32 200 MLS/HR Vital Signs/I&O 11/13/22 12:46 Temp 36.0 Pulse 66 Resp 16 B/P (MAP) 184/59 (100) Pulse Ox 99 O2 Delivery Nasal Cannula O2 Flow Rate 2.00 Capillary Refill : Progress Note : Progress Note 72-year-old female with above history coming in due to altered mental status in the setting of being a known diabetic with a low blood sugar that has been since corrected. ABCs were intact and vitals were stable on presentation. She is alert and oriented here and her neuro exam is intact at her baseline. I reviewed the patient's recent hospitalization including her recent GI endoscopy report. She was hospitalized due to profound anemia and there was concern for potential GI bleed. On the upper GI scope, she had some very mild gastritis but otherwise was negative. Her aspirin was discontinued and she was to continue taking her Plavix. She states she has had brown stools with no concerns for bleeding anywhere. Her hemoglobin today was 7.5 drawn earlier, near her baseline, white blood cell count normal at 10.4, platelets normal at 248, creatinine 2.2 which is around her baseline, potassium slightly elevated above baseline at 6.3 which is unclear if it was hemolyzed, and urinalysis was concerning for infection with large bacteria, 50 white blood cells, and leukocyte esterase positive. An IV was in place by EMS, she was given ciprofloxacin IV given her allergy to ceftriaxone. She looks euvolemic at this time, was not given fluids. We will repeat the BMP today to recheck her potassium. We will send a urine culture to follow-up on. Her potassium is normal here, likely was hemolyzed earlier. Her glucose is appropriately elevated after interventions done earlier. She continues to be at her mental baseline. Will not do any interventions for her chronic anemia today. Chest x-ray ordered and interpreted by me showing pulmonary vascular congestion, slightly worse from previous, she is on her baseline oxygen, and they did hold her diuretics today. We will recommend that they continue these. I believe she is otherwise stable for discharge with outpatient follow-up. She was sent home with strict return precautions. Antibiotics sent for her UTI. Departure Impression Primary Impression: Cystitis Additional Impression: Hypoglycemia Disposition: HOME, SELF-CARE Condition: Stable Departure-Patient Inst. Decision time for Depature: 13:50 Referrals: BERNADINE LUNDBERG MD (PCP) Primary Care Physician Patient Instructions: Urinary Tract Infection, Adult ED, Low Blood Sugar, Adult ED Add. Discharge Instructions: You do have a slight urinary tract infection. We gave you an IV antibiotic, and you will be on an antibiotic for the next week. You have been chronically anemic and your blood levels are otherwise at your baseline where you have been in the past. Please restart all of your medications including your diuretic for your heart failure. Scripts Ciprofloxacin HCl (Ciprofloxacin HCl) 500 Mg Tablet 500 MG PO BID for 7 Days, #14 TAB Prov: ISABELLE SIGALA MD 11/13/22 ISABELLE SIGALA MD Nov 13, 2022 13:12
[2022-11-13] MEDS ORDERED: CIPROFLOXACIN IV 400MG/200ML 200 ML IV ONE (13:15)
--- NOTE | 2022-11-13 13:22 | Diagnostic Imaging Report ---
INDICATION: Altered mental status, confusion. COMPARISON: 09/10/2022. TECHNIQUE: Single radiograph of the chest dated 11/13/2022. FINDINGS: The cardiac silhouette is enlarged, similar to the prior examination. Minimal central pulmonary vascular congestion, increased since the prior examination. Multiple surgical clips are seen overlying the left axillary region. Increased linear bibasilar interstitial opacities. No additional focal pulmonary opacity. No significant pleural effusion. No pneumothorax. No acute osseous abnormality. IMPRESSION: Cardiomegaly with mild central pulmonary vascular congestion, increased since the prior examination. Mild bibasilar atelectasis and/or pneumonitis. Dictated by: Dictated on workstation # [id number]
[2022-11-13 13:25] LABS: CALCIUM 8.3 MG/DL (8.5-10.1); CREATININE SERUM 2.22 MG/DL (0.60-1.30); POTASSIUM 4.9 MMOL/L (3.6-5.0)
[2022-11-13] MEDS ORDERED: CIPR500T5 PO (13:37)
== END 2022-11-13 14:28 | disposition home or self-care (01) ==
LOC: EDUNIT# 12:46 → ER FS 12:47
DX: N30.90 Cystitis, unspecified without hematuria (principal); E11.649 Type 2 diabetes mellitus with hypoglycemia without coma; E87.6 Hypokalemia; K29.70 Gastritis, unspecified, without bleeding; D64.9 Anemia, unspecified; J44.9 Chronic obstructive pulmonary disease, unspecified; E66.9 Obesity, unspecified; Z68.43 Body mass index [BMI] 50.0-59.9, adult; Z88.0 Allergy status to penicillin; Z79.4 Long term (current) use of insulin
CPT/HCPCS: 36415; 71045; 80048; 82947; 83605; 87040; 87077; 87088

== ENCOUNTER → 2022-11-13 | Outpatient (CLI) | payer MEDICARE, MEDICAID ==
[~2022-11-13] MED LIST changes: +ALPR0.254 PO; +BUME2TAB7 PO; +CIPR500T5 PO; +CLOP-31 PO; -CLOP75TA69 PO; +DOXE6TAB5 PO; +GLUC1KIT IJ; +POLY17PO6 PO; +POTA-179 PO
[2022-11-13 09:26] LABS: HEMATOCRIT 24 % (35-52); HEMOGLOBIN 7.5 g/dL (11.5-16.0); MEAN CORPUSCULAR HEMOGLOBIN 27 pg (25-34); MEAN CORPUSCULAR HGB CONC 32 g/dL (32-36); MEAN CORPUSCULAR VOLUME 86 fL (80-99); MEAN PLATELET VOLUME 10.4 fL (9.0-12.2); PLATELET COUNT 248 10^3/uL (130-400); WHITE BLOOD COUNT 10.4 10^3/uL (4.3-11.0)
[2022-11-13 09:27] LABS: BILIRUBIN,URINE NEGATIVE (NEGATIVE); COLOR,URINE YELLOW; GLUCOSE, URINE (UA) NEGATIVE (NEGATIVE); KETONES,URINE NEGATIVE (NEGATIVE); LEUKOCYTE ESTERASE ,URINE 1+ (NEGATIVE); NITRITE,URINE NEGATIVE (NEGATIVE); PH,URINE 7.5 (5-9); PROTEIN,URINE 2+ (NEGATIVE)
[2022-11-13 09:28] LABS: BACTERIA,URINE LARGE /HPF; CLARITY,URINE CLOUDY; WBC,URINE 25-50 /HPF
[2022-11-13 09:43] LABS: BILIRUBIN,TOTAL 0.3 MG/DL (0.1-1.0); CALCIUM 8.2 MG/DL (8.5-10.1); CREATININE SERUM 2.22 MG/DL (0.60-1.30); POTASSIUM 6.3 MMOL/L (3.6-5.0)
[2022-11-13 09:44] LABS: ALBUMIN 3.1 GM/DL (3.2-4.5); TOTAL PROTEIN 6.3 GM/DL (6.4-8.2)
== END ==
PROVIDERS: ATTEND Family Medicine
DX: N39.0 Urinary tract infection, site not specified (principal)
CPT/HCPCS: 80053; 81000; 85027; 87088

== ENCOUNTER 2022-11-25 09:08 | Emergency (ER) | payer MEDICARE, MEDICAID ==
[~2022-11-25] VITALS: Ht 160 cm; Wt 110.0 kg
[~2022-11-25 09:08] MED LIST changes: +CIPR500T5 PO
--- NOTE | 2022-11-25 09:25 | ED General ---
General Chief Complaint: General Problems/Pain Stated Complaint: LOW GLUCOSE Nursing Triage Note: NAYELI WAS CALLED TO THE [facility] FOR PT D/T SLOWED RESPONSE. PTS BLOOD SUGAR WAS 50 AND THE [facility] GAVE HER JUICE, CANDY, AND A SPOON FULL OF ICING. PT ANSWERS ALL QUESTIONS APPROPRIATELY UPON ARRIVAL TO THE ER. SHE IS ACTING WDL PER STAFF KNOWING HER FROM PREVIOUS VISITS. Source of Information: Patient, EMS, Shelter Records Exam Limitations: No Limitations History of Present Illness Date Seen by Provider: Nov 25, 2022 Time Seen by Provider: 09:10 Initial Comments 72yoF with PMH of CHF, CKD, chronic anemia, type 2 diabetes, cellulitis, COPD on baseline 3 L oxygen coming in via [facility] due to altered mental status and low blood sugar. The patient is well-known to this emergency department for particularly low blood sugars. Her glucose was around 50. They gave her juice, candy, and some icing with improvement to greater than 100. She states she did not eat breakfast. She is unsure of how much insulin she received last night. She is otherwise denying any chest pain, shortness of breath, abdominal pain, nausea, vomiting, diarrhea, fever, chills, weakness, numbness, dysuria, or any other concerns. She states she feels back to her baseline. EMS reports her glucose was greater than 100 for them. Allergies and Home Medications Allergies Coded Allergies: ceftriaxone (Verified Allergy, Intermediate, N/V/D, 04/18/22) adhesive tape (Unverified Allergy, Unknown, 12/24/19) codeine (Verified Allergy, Unknown, Nausea, 06/17/22) morphine (Verified Allergy, Unknown, Nausea, 06/17/22) penicillin G (Verified Allergy, Unknown, 12/24/19) Patient Home Medication List Home Medication List Reviewed: Yes ALPRAZolam (ALPRAZolam) 0.25 Mg Tablet, 0.25 MG PO Q8H PRN for ANXIETY, (Reported) Entered as Reported by: BRAXTON STYLES on 09/13/22 0836 Acetaminophen (Tylenol Extra Strength) 500 Mg Tablet, 500 MG PO Q8H PRN for PAIN-MILD (1-4), (Reported) Entered as Reported by: BRAXTON STYLES on 04/19/22 1347 Albuterol Sulfate (Ventolin Hfa) 1 Puff Puff, 2 PUFF IH Q4H PRN for SHORTNESS OF BREATH, (Reported) Entered as Reported by: BASHIR SALEH on 09/15/21 1043 Amlodipine Besylate (Amlodipine Besylate) 5 Mg Tablet, 5 MG PO DAILY Prescribed by: ODILON SOSA on 09/15/22 1424 Atorvastatin Calcium (Atorvastatin Calcium) 10 Mg Tablet, 10 MG PO HS, (Reported) Entered as Reported by: BASHIR SALEH on 06/18/22 1242 Bumetanide (Bumetanide) 2 Mg Tablet, 2 MG PO BID, (Reported) Entered as Reported by: BRAXTON STYLES on 09/13/22 0827 Carvedilol (Carvedilol) 6.25 Mg Tablet, 6.25 MG PO BID, (Reported) Entered as Reported by: BRAXTON STYLES on 04/19/22 1344 Ciprofloxacin HCl (Ciprofloxacin HCl) 500 Mg Tablet, 500 MG PO BID Prescribed by: ISABELLE SIGALA on 11/13/22 1337 Clopidogrel Bisulfate (Plavix) 75 Mg Tablet, 75 MG PO DAILY, (Reported) Entered as Reported by: BASHIR SALEH on 06/18/22 1242 Doxepin HCl (Doxepin HCl) 6 Mg Tablet, 6 MG PO HS PRN for INSOMNIA, (Reported) Entered as Reported by: BRAXTON STYLES on 09/13/22 0838 Gabapentin (Neurontin) 300 Mg Capsule, 300 MG PO DAILY, (Reported) Entered as Reported by: BRAXTON STYLES on 04/19/22 1345 Gabapentin (Neurontin) 300 Mg Capsule, 600 MG PO HS, (Reported) Entered as Reported by: BRAXTON STYLES on 04/19/22 1346 Glucagon,Human Recombinant (Glucagon Emergency Kit) 1 Mg Soln, 1 MG IJ DAILY PRN for HYPOGLYCEMIA, (Reported) Entered as Reported by: BRAXTON STYLES on 09/13/22 0833 Insulin Aspart (Novolog) 100 Unit/Ml Cartridge, 14 UNITS SQ TIDAC, (Reported) Entered as Reported by: BRAXTON STYLES on 04/19/22 1348 Insulin Determir (Levemir) 100 Unit/Ml Soln, 20 UNITS SQ HS, (Reported) Entered as Reported by: BASHIR SALEH on 06/18/22 1242 Levothyroxine Sodium (Levothyroxine) 125 Mcg Capsule, 125 MCG PO DAILY, (Reported) Entered as Reported by: BRAXTON STYLES on 04/19/22 1344 Nystatin (Nystatin) 100,000 Unit/Ml Oral.susp, 5 ML PO QID, (Reported) Entered as Reported by: BRAXTON STYLES on 09/13/22 0827 Polyethylene Glycol 3350 (Miralax) 17 Gram Powd.pack, 17 GM PO DAILY PRN for CONSTIPATION-1ST LINE, (Reported) Entered as Reported by: BRAXTON STYLES on 09/13/22 0828 Potassium Chloride (Potassium Chloride) 20 Meq Tab.er.prt, 20 MEQ PO DAILY, (Reported) Entered as Reported by: BRAXTON STYLES on 09/13/22 0827 Sulfamethoxazole/Trimethoprim (Bactrim 400-80 mg Tablet) 400 Mg-80 Mg Tablet, 1 EACH PO BID Prescribed by: ISABELLE SIGALA on 11/25/22 1017 Venlafaxine HCl (Venlafaxine HCl) 37.5 Mg Tab, 37.5 MG PO TID, (Reported) Entered as Reported by: BRAXTON STYLES on 04/19/22 1346 Review of Systems Review of Systems Constitutional: No fever EENTM: no symptoms reported Respiratory: no symptoms reported Cardiovascular: no symptoms reported Gastrointestinal: no symptoms reported Genitourinary: no symptoms reported Skin: no symptoms reported Psychiatric/Neurological: See HPI All Other Systems Reviewed Negative Unless Noted: Yes Past Vzbdaov-Kbhgup-Xwcdht Hx Patient Social History Tobacco Use?: No Use of E-Cig and/or Vaping dev: No Substance use?: No Alcohol Use?: No Pt feels they are or have been: Unable to obtain Immunizations Up To Date First/Initial COVID19 Vaccinat: Moderna Second COVID19 Vaccination Alok: Moderna Third COVID19 Vaccination Date: Seasonal Allergies Seasonal Allergies: No Past Medical History Surgery/Hospitalization HX: IDDM;left mastectomy; lymphadema; COPD; CAD; CKD; Hyperlipidemia; Obesity; HTN; Hypthyroidism; Aortic valve stenosis; Type 2 DM; Anemia Surgeries: Yes (R Masectomy, R Augmentation, ) Gallbladder, Hysterectomy, Orthopedic, Thyroidectomy Respiratory: Yes COPD Cardiac: Yes (Congestive heart failure) Chronic Edema/Swelling, Coronary Artery Disease, High Cholesterol, Hypertension, Valvular Heart Disease Neurological: No 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 Disorders: No 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 Genitourinary: Yes Renal Failure Gastrointestinal: No Musculoskeletal: Yes (ARTHRITIS) Arthritis Endocrine: Yes Diabetes, Insulin dep, Hypothyroidsim HEENT: No Cancer: Yes Breast, Lymphoma Did You Recieve Any Treatments: Yes What Type of Treatment Did You: Surgical Intervention Psychosocial: No Integumentary: No Blood Disorders: No Family Medical History Cancer Physical Exam Vital Signs Vital Signs - First Documented 11/25/22 09:08 Temp 36.2 Pulse 61 Resp 18 B/P (MAP) 144/48 (80) Pulse Ox 99 O2 Delivery Room Air Capillary Refill : Less Than 3 Seconds Height, Weight, BMI Height: '" Weight: lbs. oz. kg; 42.00 BMI Method: General Appearance: No Apparent Distress, WD/WN Eyes: Bilateral Eye Normal Inspection HEENT: PERRL/EOMI, Normal ENT Inspection, Pharynx Normal Neck: Full Range of Motion, Normal Inspection, Non Tender, Supple Respiratory: Chest Non Tender, Lungs Clear, Normal Breath Sounds, No Accessory Muscle Use, No Respiratory Distress Cardiovascular: Regular Rate, Rhythm, Normal Peripheral Pulses Gastrointestinal: Normal Bowel Sounds, Non Tender, Soft Back: Normal Inspection Extremity: Normal Capillary Refill, Normal Inspection, Normal Range of Motion, Non Tender, No Calf Tenderness Neurologic/Psychiatric: Alert, Oriented x3, No Motor/Sensory Deficits, Normal Mood/Affect Skin: Normal Color, Warm/Dry Progress/Results/Core Measures Suspected Sepsis SIRS Temperature: Pulse: 61 Respiratory Rate: 18 Laboratory Tests 11/25/22 09:44: White Blood Count 7.1 Blood Pressure 144 /48 Mean: 80 Laboratory Tests 11/25/22 09:44: Creatinine 2.97H, Platelet Count 289, Total Bilirubin 0.2 Results/Orders Lab Results Laboratory Tests Test 11/25/22 09:44 11/25/22 09:46 Range/Units White Blood Count 7.1 4.3-11.0 10^3/uL Red Blood Count 2.77 L 3.80-5.11 10^6/uL Hemoglobin 7.4 L 11.5-16.0 g/dL Hematocrit 24 L 35-52 % Mean Corpuscular Volume 86 80-99 fL Mean Corpuscular Hemoglobin 27 25-34 pg Mean Corpuscular Hemoglobin Concent 31 L 32-36 g/dL Red Cell Distribution Width 16.5 H 10.0-14.5 % Platelet Count 289 130-400 10^3/uL Mean Platelet Volume 9.7 9.0-12.2 fL Immature Granulocyte % (Auto) 0 % Neutrophils (%) (Auto) 74 42-75 % Lymphocytes (%) (Auto) 12 12-44 % Monocytes (%) (Auto) 8 0-12 % Eosinophils (%) (Auto) 6 0-10 % Basophils (%) (Auto) 1 0-10 % Neutrophils # (Auto) 5.2 1.8-7.8 10^3/uL Lymphocytes # (Auto) 0.9 L 1.0-4.0 10^3/uL Monocytes # (Auto) 0.5 0.0-1.0 10^3/uL Eosinophils # (Auto) 0.4 H 0.0-0.3 10^3/uL Basophils # (Auto) 0.0 0.0-0.1 10^3/uL Immature Granulocyte # (Auto) 0.0 0.0-0.1 10^3/uL Urine Color YELLOW Urine Clarity CLOUDY Urine pH 7.0 5-9 Urine Specific [employer] 1.020 1.016-1.022 Urine Protein 2+ H NEGATIVE Urine Glucose (UA) NEGATIVE NEGATIVE Urine Ketones NEGATIVE NEGATIVE Urine Nitrite POSITIVE H NEGATIVE Urine Bilirubin NEGATIVE NEGATIVE Urine Urobilinogen 0.2 < = 1.0 MG/DL Urine Leukocyte Esterase 2+ H NEGATIVE Urine RBC (Auto) 1+ H NEGATIVE Urine RBC 2-5 H /HPF Urine WBC 25-50 H /HPF Urine Squamous Epithelial Cells 0-2 /HPF Urine Crystals NONE /LPF Urine Bacteria LARGE H /HPF Urine Casts PRESENT /LPF Urine Hyaline Casts 10-25 H /LPF Urine Mucus SMALL H /LPF Urine Culture Indicated YES Sodium Level 140 135-145 MMOL/L Potassium Level 4.6 3.6-5.0 MMOL/L Chloride Level 102 98-107 MMOL/L Carbon Dioxide Level 25 21-32 MMOL/L Anion Gap 13 5-14 MMOL/L Blood Urea Nitrogen 88 H 7-18 MG/DL Creatinine 2.97 H 0.60-1.30 MG/DL Estimat Glomerular Filtration Rate 16 BUN/Creatinine Ratio 30 Glucose Level 98 70-105 MG/DL Calcium Level 8.0 L 8.5-10.1 MG/DL Corrected Calcium 8.2 L 8.5-10.1 MG/DL Total Bilirubin 0.2 0.1-1.0 MG/DL Aspartate Amino Transf (AST/SGOT) 36 H 5-34 U/L Alanine Aminotransferase (ALT/SGPT) 39 0-55 U/L Alkaline Phosphatase 305 H 40-136 U/L Total Protein 6.6 6.4-8.2 GM/DL Albumin 3.7 3.2-4.5 GM/DL Glucometer 95 70-110 MG/DL My Orders Orders - ISABELLE SIGALA MD Accucheck Stat ONCE (11/25/22 09:31) Cbc With Automated Diff (11/25/22 09:39) Comprehensive Metabolic Panel (11/25/22 09:39) Ua Culture If Indicated (11/25/22 09:39) Urine Culture (11/25/22 09:44) Sulfamethoxazole/Trimet Ds Tab (Bactrim (11/25/22 10:15) Vital Signs/I&O 11/25/22 11/25/22 09:08 10:18 Temp 36.2 36.2 Pulse 61 61 Resp 18 18 B/P (MAP) 144/48 (80) 144/48 Pulse Ox 99 99 O2 Delivery Room Air Room Air Capillary Refill : Less Than 3 Seconds Blood Pressure Mean: 80 Progress Note : Progress Note 72-year-old female [facility] due to low blood sugar. ABCs were intact and vitals were stable on presentation. Her glucose was greater than 100 just prior to arrival and she is back to her mental baseline. The patient is a brittle diabetic that frequently has issues with low glucose. She did not eat breakfast this morning and that likely is part of it. She does have typically CKD with a creatinine around 2 which likely she does hold onto her insulin more so. Given that this is a recurrent issue, we will recommend lowering her long-acting insulin. Glucose on repeat assessment here within normal limits and she is tolerating p.o. The patient was here at the end of October and did have a UTI. She was sent home on ciprofloxacin with the bacteria being resistant to that. She was later sent in a prescription to [facility] which it was sensitive to based on chart review. No longer having UTI-like symptoms and is not confused when her glucose is appropriate. I contacted the [facility] personally and discussed the case with the nurse. All of her low blood sugars have been in the morning. Over the past month they have been dose adjusting her long-acting insulin. She was giving 38 units, then 35, and for the past 4 days she has been getting 30 units. I recommended dropping in another 10% to 27 units at night. They requested that we get a CBC, CMP, and urinalysis since their physician ordered it, but they would like it to be done sooner if able. These lab test were ordered and are similar to baseline. I believe she is otherwise stable for discharge with outpatient follow-up. She was sent home with strict return precautions Departure Impression Primary Impression: Hypoglycemia Additional Impression: Cystitis Disposition: HOME, SELF-CARE Condition: Improved Departure-Patient Inst. Decision time for Depature: 10:19 Referrals: BERNADNIE LUNDBERG MD (PCP) Primary Care Physician Patient Instructions: Low Blood Sugar, Adult ED Add. Discharge Instructions: Since you have had trends with your blood sugar continues to be low, we recommend you lower the amount of insulin you are getting daily. Your kidney function has been slightly worse over the past several months, and its likely you are holding onto the insulin longer than you typically were before. Please call your regular doctor to have them adjust this. We would recommend lowering it by 10% to 27 units at night. The urine still looks infected which may or may not be a true infection given the perry catheter is likely always growing this bacteria. You will be on antibiotics for the next 10 days. Scripts Sulfamethoxazole/Trimethoprim (Bactrim 400-80 mg Tablet) 400 Mg-80 Mg Tablet 1 EACH PO BID for 10 Days, #20 TAB Prov: ISABELLE SIGALA MD 11/25/22 ISABELLE SIGALA MD Nov 25, 2022 09:25
[2022-11-25 09:55] LABS: BASOPHILS % (AUTO) 1 % (0-10); EOSINOPHILS # (AUTO) 0.4 10^3/uL (0.0-0.3); EOSINOPHILS % (AUTO) 6 % (0-10); HEMATOCRIT 24 % (35-52); HEMOGLOBIN 7.4 g/dL (11.5-16.0); LYMPHOCYTES # (AUTO) 0.9 10^3/uL (1.0-4.0); LYMPHOCYTES % (AUTO) 12 % (12-44); MEAN CORPUSCULAR HEMOGLOBIN 27 pg (25-34); MEAN CORPUSCULAR HGB CONC 31 g/dL (32-36); MEAN CORPUSCULAR VOLUME 86 fL (80-99); MEAN PLATELET VOLUME 9.7 fL (9.0-12.2); MONOCYTES # (AUTO) 0.5 10^3/uL (0.0-1.0); MONOCYTES % (AUTO) 8 % (0-12); NEUTROPHILS # (AUTO) 5.2 10^3/uL (1.8-7.8); NEUTROPHILS % (AUTO) 74 % (42-75); PLATELET COUNT 289 10^3/uL (130-400); WHITE BLOOD COUNT 7.1 10^3/uL (4.3-11.0)
[2022-11-25 10:07] LABS: BILIRUBIN,URINE NEGATIVE (NEGATIVE); CLARITY,URINE CLOUDY; COLOR,URINE YELLOW; GLUCOSE, URINE (UA) NEGATIVE (NEGATIVE); KETONES,URINE NEGATIVE (NEGATIVE); LEUKOCYTE ESTERASE ,URINE 2+ (NEGATIVE); NITRITE,URINE POSITIVE (NEGATIVE); PROTEIN,URINE 2+ (NEGATIVE)
[2022-11-25 10:08] LABS: BACTERIA,URINE LARGE /HPF; SQUAMOUS EPITHELIAL CELL,UR 0-2 /HPF; WBC,URINE 25-50 /HPF
[2022-11-25 10:13] LABS: ALBUMIN 3.7 GM/DL (3.2-4.5); BILIRUBIN,TOTAL 0.2 MG/DL (0.1-1.0); CREATININE SERUM 2.97 MG/DL (0.60-1.30); POTASSIUM 4.6 MMOL/L (3.6-5.0); TOTAL PROTEIN 6.6 GM/DL (6.4-8.2)
[2022-11-25] MEDS ORDERED: TRIM/SULFAMETH 160/800 (SEPTRA DS) TAB PO ONE (10:15)
[2022-11-25] MEDS ORDERED: SULF1TAB34 PO (10:17)
[2022-11-25 10:18] VITALS: BP 144/48
== END 2022-11-25 11:01 | disposition home or self-care (01) ==
LOC: EDUNIT# 09:08 → ER FS 09:10
DX: E11.649 Type 2 diabetes mellitus with hypoglycemia without coma (principal); N30.90 Cystitis, unspecified without hematuria; I13.0 Hypertensive heart and chronic kidney disease with heart failure and stage 1 through stage 4 chronic kidney disease, or unspecified chronic kidney disease; I50.9 Heart failure, unspecified; N18.9 Chronic kidney disease, unspecified; E66.9 Obesity, unspecified; Z79.4 Long term (current) use of insulin; Z88.1 Allergy status to other antibiotic agents; Z88.0 Allergy status to penicillin; Z68.41 Body mass index [BMI] 40.0-44.9, adult
CPT/HCPCS: 36415; 80053; 81000; 82947; 85025; 87077; 87088; 87186

== ENCOUNTER 2022-12-09 13:35 | Emergency (ER) | payer MEDICARE, MEDICAID ==
[~2022-12-09 13:35] MED LIST changes: +SULF1TAB34 PO
--- NOTE | 2022-12-09 13:39 | ED Respiratory ---
General Stated Complaint: WHEEZING Source: patient, half-way records, old records, caregiver Exam Limitations: no limitations History of Present Illness Date Seen by Provider: Dec 09, 2022 Time Seen by Provider: 13:33 Initial Comments 72-year-old female presents from a local nursing facility for shortness of breath. Patient tells me she has been short of breath for 2 days. The caregiver at bedside states she is also gained 50 pounds in the last couple of months. They have reportedly been trying to adjust her dose of Bumex. Medication records via the nursing facility show that she is getting 2 mg twice daily currently. She has had normal urine output. She denies fevers chills or chest pain. No coughing. She does feel like she has maybe been wheezing. She does have a history of congestive heart failure. She sees Dr. Monsivais. Allergies and Home Medications Allergies Coded Allergies: ceftriaxone (Verified Allergy, Intermediate, N/V/D, 04/18/22) adhesive tape (Unverified Allergy, Unknown, 12/24/19) codeine (Verified Allergy, Unknown, Nausea, 06/17/22) morphine (Verified Allergy, Unknown, Nausea, 06/17/22) penicillin G (Verified Allergy, Unknown, 12/24/19) Patient Home Medication List Home Medication List Reviewed: Yes ALPRAZolam (ALPRAZolam) 0.25 Mg Tablet, 0.25 MG PO Q8H PRN for ANXIETY, (Reported) Entered as Reported by: BRAXTON STYLES on 09/13/22 0836 Acetaminophen (Tylenol Extra Strength) 500 Mg Tablet, 500 MG PO Q8H PRN for PAIN-MILD (1-4), (Reported) Entered as Reported by: BRAXTON STYLES on 04/19/22 1347 Albuterol Sulfate (Ventolin Hfa) 1 Puff Puff, 2 PUFF IH Q4H PRN for SHORTNESS OF BREATH, (Reported) Entered as Reported by: BASHIR SALEH on 09/15/21 1043 Amlodipine Besylate (Amlodipine Besylate) 5 Mg Tablet, 5 MG PO DAILY Prescribed by: ODILON SOSA on 09/15/22 1424 Atorvastatin Calcium (Atorvastatin Calcium) 10 Mg Tablet, 10 MG PO HS, (Reported) Entered as Reported by: BASHIR SALEH on 06/18/22 1242 Bumetanide (Bumetanide) 2 Mg Tablet, 2 MG PO BID, (Reported) Entered as Reported by: BRAXTON STYLES on 09/13/22 0827 Carvedilol (Carvedilol) 6.25 Mg Tablet, 6.25 MG PO BID, (Reported) Entered as Reported by: BRAXTON STYLES on 04/19/22 1344 Ciprofloxacin HCl (Ciprofloxacin HCl) 500 Mg Tablet, 500 MG PO BID Prescribed by: ISABELLE SIGALA on 11/13/22 1337 Clopidogrel Bisulfate (Plavix) 75 Mg Tablet, 75 MG PO DAILY, (Reported) Entered as Reported by: BASHIR SALEH on 06/18/22 1242 Doxepin HCl (Doxepin HCl) 6 Mg Tablet, 6 MG PO HS PRN for INSOMNIA, (Reported) Entered as Reported by: BRAXTON STYLES on 09/13/22 0838 Gabapentin (Neurontin) 300 Mg Capsule, 300 MG PO DAILY, (Reported) Entered as Reported by: BRAXTON STYLES on 04/19/22 1345 Gabapentin (Neurontin) 300 Mg Capsule, 600 MG PO HS, (Reported) Entered as Reported by: BRAXTON STYLES on 04/19/22 1346 Glucagon,Human Recombinant (Glucagon Emergency Kit) 1 Mg Soln, 1 MG IJ DAILY PRN for HYPOGLYCEMIA, (Reported) Entered as Reported by: BRAXTON STYLES on 09/13/22 0833 Insulin Aspart (Novolog) 100 Unit/Ml Cartridge, 14 UNITS SQ TIDAC, (Reported) Entered as Reported by: BRAXTON STYLES on 04/19/22 1348 Insulin Determir (Levemir) 100 Unit/Ml Soln, 20 UNITS SQ HS, (Reported) Entered as Reported by: BASHIR SALEH on 06/18/22 1242 Levothyroxine Sodium (Levothyroxine) 125 Mcg Capsule, 125 MCG PO DAILY, (Reported) Entered as Reported by: BRAXTON STYLES on 04/19/22 1344 Nirmatrelvir/Ritonavir (Paxlovid 300-100 mg Pack (Eua)) 300 Mg (150 Mg X 2)-100 Mg Tab.ds.pk, 1 EACH PO BID Prescribed by: MARY LOU GOEL MD on 12/09/22 1428 Nystatin (Nystatin) 100,000 Unit/Ml Oral.susp, 5 ML PO QID, (Reported) Entered as Reported by: BRAXTON STYLES on 09/13/22 08 Polyethylene Glycol 3350 (Miralax) 17 Gram Powd.pack, 17 GM PO DAILY PRN for CONSTIPATION-1ST LINE, (Reported) Entered as Reported by: BRAXTON STYLES on 09/13/22 0828 Potassium Chloride (Potassium Chloride) 20 Meq Tab.er.prt, 20 MEQ PO DAILY, (Reported) Entered as Reported by: BRAXTON STYLES on 09/13/22 0827 Sulfamethoxazole/Trimethoprim (Bactrim 400-80 mg Tablet) 400 Mg-80 Mg Tablet, 1 EACH PO BID Prescribed by: ISABELLE SIGALA on 11/25/22 1017 Venlafaxine HCl (Venlafaxine HCl) 37.5 Mg Tab, 37.5 MG PO TID, (Reported) Entered as Reported by: BRAXTON STYLES on 04/19/22 1346 Review of Systems Review of Systems Constitutional: no symptoms reported EENTM: no symptoms reported Respiratory: dyspnea on exertion, short of breath Cardiovascular: edema Gastrointestinal: no symptoms reported Genitourinary: no symptoms reported Musculoskeletal: no symptoms reported Skin: no symptoms reported Psychiatric/Neurological: No Symptoms Reported Hematologic/Lymphatic: No Symptoms Reported Immunological/Allergic: no symptoms reported Past Qnhcuxf-[id number]-[id number] Hx Patient Social History Tobacco Use?: No Use of E-Cig and/or Vaping dev: No Substance use?: No Alcohol Use?: No Immunizations Up To Date First/Initial COVID19 Vaccinat: Second COVID19 Vaccination Alok: Third COVID19 Vaccination Date: Seasonal Allergies Seasonal Allergies: No Past Medical History Surgery/Hospitalization HX: IDDM;left mastectomy; lymphadema; COPD; CAD; CKD; Hyperlipidemia; Obesity; HTN; Hypthyroidism; Aortic valve stenosis; Type 2 DM; Anemia Surgeries: Yes (R Masectomy, R Augmentation, ) Gallbladder, Hysterectomy, Orthopedic, Thyroidectomy Respiratory: Yes COPD Cardiac: Yes (Congestive heart failure) Chronic Edema/Swelling, Coronary Artery Disease, High Cholesterol, Hypertension, Valvular Heart Disease Neurological: No 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 Disorders: 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 oz. kg; 42.00 BMI Method: General Appearance: no apparent distress, other (Morbidly obese) Eyes: Bilateral Eye Normal Inspection, Bilateral Eye PERRL, Bilateral Eye EOMI HEENT: PERRL/EOMI, normal ENT inspection, TMs normal, pharynx normal Neck: non-tender Respiratory: chest non-tender, no respiratory distress, no accessory muscle use, other (Decreased breath sounds bilaterally with some rales) Cardiovascular: regular rate, rhythm, no murmur, other (3+ pitting edema bilateral lower extremities) Gastrointestinal: normal bowel sounds, non tender, soft, no organomegaly Neurologic/Psychiatric: alert, normal mood/affect, oriented x 3 Skin: warm/dry, other (3+ pitting edema bilateral lower extremities causing clear blisters, small around 1 cm.) Progress/Results/Core Measures Suspected Sepsis SIRS Temperature: Pulse: Respiratory Rate: Laboratory Tests 12/09/22 13:50: White Blood Count 5.8 Blood Pressure / Mean: Laboratory Tests 12/09/22 13:50: Creatinine 2.79H, Platelet Count 278, Total Bilirubin 0.2 Results/Orders Lab Results Laboratory Tests Test 12/09/22 13:50 Range/Units White Blood Count 5.8 4.3-11.0 10^3/uL Red Blood Count 2.73 L 3.80-5.11 10^6/uL Hemoglobin 7.3 L 11.5-16.0 g/dL Hematocrit 24 L 35-52 % Mean Corpuscular Volume 88 80-99 fL Mean Corpuscular Hemoglobin 27 25-34 pg Mean Corpuscular Hemoglobin Concent 31 L 32-36 g/dL Red Cell Distribution Width 17.3 H 10.0-14.5 % Platelet Count 278 130-400 10^3/uL Mean Platelet Volume 10.1 9.0-12.2 fL Immature Granulocyte % (Auto) 0 % Neutrophils (%) (Auto) 69 42-75 % Lymphocytes (%) (Auto) 17 12-44 % Monocytes (%) (Auto) 8 0-12 % Eosinophils (%) (Auto) 5 0-10 % Basophils (%) (Auto) 1 0-10 % Neutrophils # (Auto) 4.0 1.8-7.8 10^3/uL Lymphocytes # (Auto) 1.0 1.0-4.0 10^3/uL Monocytes # (Auto) 0.5 0.0-1.0 10^3/uL Eosinophils # (Auto) 0.3 0.0-0.3 10^3/uL Basophils # (Auto) 0.0 0.0-0.1 10^3/uL Immature Granulocyte # (Auto) 0.0 0.0-0.1 10^3/uL Sodium Level 144 135-145 MMOL/L Potassium Level 4.7 3.6-5.0 MMOL/L Chloride Level 106 98-107 MMOL/L Carbon Dioxide Level 26 21-32 MMOL/L Anion Gap 12 5-14 MMOL/L Blood Urea Nitrogen 87 H 7-18 MG/DL Creatinine 2.79 H 0.60-1.30 MG/DL Estimat Glomerular Filtration Rate 18 BUN/Creatinine Ratio 31 Glucose Level 156 H 70-105 MG/DL Calcium Level 8.1 L 8.5-10.1 MG/DL Corrected Calcium 8.5 8.5-10.1 MG/DL Total Bilirubin 0.2 0.1-1.0 MG/DL Aspartate Amino Transf (AST/SGOT) 34 5-34 U/L Alanine Aminotransferase (ALT/SGPT) 27 0-55 U/L Alkaline Phosphatase 321 H 40-136 U/L Troponin I < 0.30 <0.30 NG/ML Total Protein 6.6 6.4-8.2 GM/DL Albumin 3.5 3.2-4.5 GM/DL Influenza Type A (RT-PCR) Not Detected Not Detecte Influenza Type B (RT-PCR) Not Detected Not Detecte SARS-CoV-2 RNA (RT-PCR) Detected H Not Detecte My Orders Orders - MARY LOU GOEL DO Cbc With Automated Diff (12/09/22 13:46) Comprehensive Metabolic Panel (12/09/22 13:46) Troponin I Fs (12/09/22 13:46) Chest 1 View Ap/Pa Only (12/09/22 13:46) Covid 19 Inhouse Test (12/09/22 13:46) Influenza A And B By Pcr (12/09/22 13:46) Bumetanide Injection (Bumex Injection) (12/09/22 13:57) Bumetanide Injection (Bumex Injection) (12/09/22 14:00) Medications Given in ED Current Medications Medications Dose Ordered Sig/Francy Route Start Time Stop Time Status Last Admin Dose Admin Bumetanide 2 mg ONCE ONCE IV 12/09/22 14:00 12/09/22 14:02 DC 12/09/22 14:07 2 MG Vital Signs/I&O 12/09/22 12/09/22 13:45 13:45 Temp 36.3 Pulse 64 Resp 16 B/P (MAP) 156/54 (88) Pulse Ox 96 O2 Delivery Nasal Cannula Nasal Cannula O2 Flow Rate 3.00 3.00 Capillary Refill : Departure Communication (Admissions) The patient is hemodynamically stable. She did get winded when getting from the wheelchair to the bed but settled down quickly and her oxygen has been greater than 92 to 94% since she has been here. At present she is at 97% on 3 L of oxygen via nasal cannula which she wears chronically. She is afebrile. Chest x-ray shows no infectious process. No obvious pulmonary edema. She does have symptomatic peripheral edema so she is given IV Bumex. She has a catheter and has had good urine output since she has been here. Her creatinine is at its baseline, actually slightly better than when she was seen here on the second. Her hemoglobin is low but also at its baseline. Other labs are relatively unremarkable. Her COVID test is positive. We will start her on oral Paxlovid to decrease her risk for need for hospitalization. Given strict return precautions and discharged back to the nursing facility Impression Primary Impression: COVID-19 Additional Impressions: CKD (chronic kidney disease) Qualified Codes: N18.9 - Chronic kidney disease, unspecified Anemia in chronic kidney disease (CKD) Qualified Codes: N18.9 - Chronic kidney disease, unspecified; D63.1 - Anemia in chronic kidney disease Disposition: 01 HOME, SELF-CARE Condition: Stable Departure-Patient Inst. Referrals: SELF,BERNADINE CAMPOS (PCP) Primary Care Physician Patient Instructions: COVID-19 ED Add. Discharge Instructions: Please take the oral COVID medicine, Paxlovid, as prescribed until it is gone. Titrate her oxygen to keep her O2 levels greater than 90%. If you need to give her more than 5 L of oxygen via nasal cannula she likely needs admitted to the hospital and would recommend you return to the emergency department for this. Currently, there is no indication for admission to the hospital. Continue to work with her primary doctor for Bumex dosing. She has significant fluid on her legs however her lungs do not have significant fluid on chest x-ray. Follow-up with her primary physician for any nonemergent needs. Return to the emergency department for any severe concerns Scripts Nirmatrelvir/Ritonavir (Paxlovid 300-100 mg Pack (Eua)) 300 Mg (150 Mg X 2)-100 Mg Tab.ds.pk 1 EACH PO BID for 5 Days, #1 PKG Prov: MARY LOU GOEL DO 12/09/22 MARY LOU GOEL DO Dec 09, 2022 13:39
[2022-12-09 13:45] VITALS: BP 156/54
[2022-12-09] MEDS ORDERED: BUMETANIDE 1 MG/4 ML (BUMEX) VIAL IV ONE (14:00)
[2022-12-09 14:02] LABS: BASOPHILS % (AUTO) 1 % (0-10); EOSINOPHILS # (AUTO) 0.3 10^3/uL (0.0-0.3); EOSINOPHILS % (AUTO) 5 % (0-10); HEMATOCRIT 24 % (35-52); HEMOGLOBIN 7.3 g/dL (11.5-16.0); LYMPHOCYTES % (AUTO) 17 % (12-44); MEAN CORPUSCULAR HEMOGLOBIN 27 pg (25-34); MEAN CORPUSCULAR HGB CONC 31 g/dL (32-36); MEAN CORPUSCULAR VOLUME 88 fL (80-99); MEAN PLATELET VOLUME 10.1 fL (9.0-12.2); MONOCYTES # (AUTO) 0.5 10^3/uL (0.0-1.0); MONOCYTES % (AUTO) 8 % (0-12); NEUTROPHILS % (AUTO) 69 % (42-75); PLATELET COUNT 278 10^3/uL (130-400); WHITE BLOOD COUNT 5.8 10^3/uL (4.3-11.0)
[2022-12-09] MEDS: BUMETANIDE 2.5 MG/10 ML (BUMEX) VIAL ONE (14:07)
[2022-12-09] MEDS: BUMETANIDE 2.5 MG/10 ML (BUMEX) VIAL IV ONE (14:07)
--- NOTE | 2022-12-09 14:11 | Diagnostic Imaging Report ---
Indication: Shortness of breath. Frontal chest obtained at 1:55 p.m. and compared with 11/13/2022. There is prominent cardiomegaly. There is central vascular congestion. There is no focal infiltrate or edema or pleural fluid. Impression: Prominent cardiomegaly with no acute edema or consolidation. There is no pleural fluid. Dictated by: Dictated on workstation # [id number]
[2022-12-09 14:22] LABS: CARBON DIOXIDE 26 MMOL/L (21-32); CHLORIDE 106 MMOL/L (98-107); POTASSIUM 4.7 MMOL/L (3.6-5.0); SODIUM 144 MMOL/L (135-145)
[2022-12-09 14:23] LABS: ALANINE AMINOTRANSFERASE 27 U/L (0-55); ALBUMIN 3.5 GM/DL (3.2-4.5); ALKALINE PHOSPHATASE 321 U/L (40-136); BILIRUBIN,TOTAL 0.2 MG/DL (0.1-1.0); BUN/CREATININE RATIO 31; CALCIUM 8.1 MG/DL (8.5-10.1); CREATININE SERUM 2.79 MG/DL (0.60-1.30); GFR ESTIMATED 18; GLUCOSE 156 MG/DL (70-105); TOTAL PROTEIN 6.6 GM/DL (6.4-8.2)
[2022-12-09] MEDS ORDERED: NIRM1TAB PO (14:28)
== END 2022-12-09 14:40 | disposition home or self-care (01) ==
LOC: EDUNIT# 13:35 → ER FS 13:36
DX: U07.1 COVID-19 (principal); D63.1 Anemia in chronic kidney disease; I13.0 Hypertensive heart and chronic kidney disease with heart failure and stage 1 through stage 4 chronic kidney disease, or unspecified chronic kidney disease; E11.22 Type 2 diabetes mellitus with diabetic chronic kidney disease; I50.9 Heart failure, unspecified; N18.9 Chronic kidney disease, unspecified; E66.01 Morbid (severe) obesity due to excess calories; Z68.41 Body mass index [BMI] 40.0-44.9, adult; Z79.4 Long term (current) use of insulin; Z20.822 Contact with and (suspected) exposure to COVID-19
CPT/HCPCS: 36415; 71045; 80053; 84484; 85025; 87636

== ENCOUNTER 2022-12-11 12:09 | Inpatient (IN) | payer MEDICARE, MEDICAID ==
[~2022-12-11] VITALS: Ht 158 cm; Wt 160.7 kg
[~2022-12-11 12:09] MED LIST changes: +NIRM1TAB PO
--- NOTE | 2022-12-11 12:25 | ED General ---
General Stated Complaint: AMS History of Present Illness Date Seen by Provider: Dec 11, 2022 Time Seen by Provider: 12:10 Initial Comments 72-year-old female with PMH of obesity/left mastectomy with left arm lymphedema/aortic valve stenosis/CHF on bumetanide 2 mg twice nate y/CKD/hypothyroidism/type II DM/COPD on 3 L of oxygen at baseline/HTN/bilateral lower extremity cellulitis on doxycycline/COVID-positive on day 3 of Paxlovid, is brought in by EMS from the [place] [facility] for altered mental status. Patient was in the ER 2 days ago and was diagnosed with COVID and started on Paxlovid. Today at the [place] [facility] staff has stated that patient appears to have an increasing altered mental status and was seen slumped over in her wheelchair and sleeping which is unlike her. Patient is able to answer all questions in the ER and is not complaining of any pain. Patient states that she feels very tired and lethargic, and does not have an appetite. Patient has an indwelling Woody and the urine bag was changed yesterday. Denies diarrhea, chest pain, palpitations, abdominal pain, dizziness, headache. Allergies and Home Medications Allergies Coded Allergies: ceftriaxone (Verified Allergy, Intermediate, N/V/D, 04/18/22) adhesive tape (Unverified Allergy, Unknown, 12/24/19) codeine (Verified Allergy, Unknown, Nausea, 06/17/22) morphine (Verified Allergy, Unknown, Nausea, 06/17/22) penicillin G (Verified Allergy, Unknown, 12/24/19) Patient Home Medication List Home Medication List Reviewed: Yes ALPRAZolam (ALPRAZolam) 0.25 Mg Tablet, 0.25 MG PO Q8H PRN for ANXIETY, (Reported) Entered as Reported by: BRAXTON STYLES on 09/13/22 0836 Acetaminophen (Tylenol Extra Strength) 500 Mg Tablet, 500 MG PO Q8H PRN for PAIN-MILD (1-4), (Reported) Entered as Reported by: BRAXTON STYLES on 04/19/22 1347 Albuterol Sulfate (Ventolin Hfa) 1 Puff Puff, 2 PUFF IH Q4H PRN for SHORTNESS OF BREATH, (Reported) Entered as Reported by: BASHIR SALEH on 09/15/21 1043 Amlodipine Besylate (Amlodipine Besylate) 5 Mg Tablet, 5 MG PO DAILY Prescribed by: ODILON SOSA on 09/15/22 1424 Atorvastatin Calcium (Atorvastatin Calcium) 10 Mg Tablet, 10 MG PO HS, (Reported) Entered as Reported by: BASHIR SALEH on 06/18/22 1242 Bumetanide (Bumetanide) 2 Mg Tablet, 2 MG PO BID, (Reported) Entered as Reported by: BRAXTON STYLES on 09/13/22 0827 Carvedilol (Carvedilol) 6.25 Mg Tablet, 6.25 MG PO BID, (Reported) Entered as Reported by: BRAXTON STYLES on 04/19/22 1344 Ciprofloxacin HCl (Ciprofloxacin HCl) 500 Mg Tablet, 500 MG PO BID Prescribed by: ISABELLE SIGALA on 11/13/22 1337 Clopidogrel Bisulfate (Plavix) 75 Mg Tablet, 75 MG PO DAILY, (Reported) Entered as Reported by: BASHIR SALEH on 06/18/22 1242 Doxepin HCl (Doxepin HCl) 6 Mg Tablet, 6 MG PO HS PRN for INSOMNIA, (Reported) Entered as Reported by: BRAXTON STYLES on 09/13/22 0838 Gabapentin (Neurontin) 300 Mg Capsule, 300 MG PO DAILY, (Reported) Entered as Reported by: BRAXTON STYLES on 04/19/22 1345 Gabapentin (Neurontin) 300 Mg Capsule, 600 MG PO HS, (Reported) Entered as Reported by: BRAXTON STYLES on 04/19/22 1346 Glucagon,Human Recombinant (Glucagon Emergency Kit) 1 Mg Soln, 1 MG IJ DAILY PRN for HYPOGLYCEMIA, (Reported) Entered as Reported by: BRAXTON STYLES on 09/13/22 0833 Insulin Aspart (Novolog) 100 Unit/Ml Cartridge, 14 UNITS SQ TIDAC, (Reported) Entered as Reported by: BRAXTON STYLES on 04/19/22 1348 Insulin Determir (Levemir) 100 Unit/Ml Soln, 20 UNITS SQ HS, (Reported) Entered as Reported by: BASHIR SALEH on 06/18/22 1242 Levothyroxine Sodium (Levothyroxine) 125 Mcg Capsule, 125 MCG PO DAILY, (Report ed) Entered as Reported by: BRAXTON STYLES on 04/19/22 1344 Nirmatrelvir/Ritonavir (Paxlovid 300-100 mg Pack (Eua)) 300 Mg (150 Mg X 2)-100 Mg Tab.ds.pk, 1 EACH PO BID Prescribed by: MARY LOU GOEL MD on 12/09/22 1428 Nystatin (Nystatin) 100,000 Unit/Ml Oral.susp, 5 ML PO QID, (Reported) Entered as Reported by: BRAXTON STYLES on 09/13/22 0827 Polyethylene Glycol 3350 (Miralax) 17 Gram Powd.pack, 17 GM PO DAILY PRN for CONSTIPATION-1ST LINE, (Reported) Entered as Reported by: BRAXTON STYLES on 09/13/22 0828 Potassium Chloride (Potassium Chloride) 20 Meq Tab.er.prt, 20 MEQ PO DAILY, (Reported) Entered as Reported by: BRAXTON STYLES on 09/13/22 0827 Sulfamethoxazole/Trimethoprim (Bactrim 400-80 mg Tablet) 400 Mg-80 Mg Tablet, 1 EACH PO BID Prescribed by: ISABELLE SIGALA on 11/25/22 1017 Venlafaxine HCl (Venlafaxine HCl) 37.5 Mg Tab, 37.5 MG PO TID, (Reported) Entered as Reported by: BRAXTON STYLES on 04/19/22 1346 Review of Systems Review of Systems Constitutional: malaise EENTM: no symptoms reported Respiratory: no symptoms reported Cardiovascular: no symptoms reported Gastrointestinal: no symptoms reported Genitourinary: no symptoms reported Musculoskeletal: no symptoms reported Skin: no symptoms reported Psychiatric/Neurological: No Symptoms Reported, See HPI Hematologic/Lymphatic: No Symptoms Reported Immunological/Allergic: no symptoms reported Past Dhxabcx-Lwenul-Ndiurf Hx Immunizations Up To Date First/Initial COVID19 Vaccinat: Moderna Second COVID19 Vaccination Alok: Third COVID19 Vaccination Date: Seasonal Allergies Seasonal Allergies: No Past Medical History Surgery/Hospitalization HX: IDDM;left mastectomy; lymphadema; COPD; CAD; CKD; Hyperlipidemia; Obesity; HTN; Hypthyroidism; Aortic valve stenosis; Type 2 DM; Anemia Surgeries: Yes (R Masectomy, R Augmentation, ) Gallbladder, Hysterectomy, Orthopedic, Thyroidectomy Respiratory: Yes COPD Cardiac: Yes (Congestive heart failure) Chronic Edema/Swelling, Coronary Artery Disease, High Cholesterol, Hypertension, Valvular Heart Disease Neurological: No 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 Genitourinary: Yes Renal Failure Gastrointestinal: No Musculoskeletal: Yes (ARTHRITIS) Arthritis Endocrine: Yes Diabetes, Insulin dep, Hypothyroidsim HEENT: No Cancer: Yes Breast, Lymphoma Did You Recieve Any Treatments: Yes What Type of Treatment Did You: Surgical Intervention Psychosocial: No Integumentary: No Blood Disorders: No Family Medical History Cancer Physical Exam Vital Signs Vital Signs - First Documented 12/11/22 12:26 Temp 36.3 Pulse 66 Resp 22 B/P (MAP) 172/63 (99) Pulse Ox 97 O2 Delivery Nasal Cannula O2 Flow Rate 2.00 Capillary Refill : Height, Weight, BMI Height: '" Weight: lbs. oz. kg; 42.00 BMI Method: General Appearance: No Apparent Distress, WD/WN, Obese HEENT: PERRL/EOMI, Normal ENT Inspection Neck: Full Range of Motion Respiratory: Chest Non Tender, Lungs Clear, Normal Breath Sounds, No Accessory Muscle Use Cardiovascular: Regular Rate, Rhythm Gastrointestinal: Normal Bowel Sounds, Non Tender, Soft Back: Normal Inspection, No CVA Tenderness Extremity: Normal Range of Motion, Inflammation, Pedal Edema (Bilateral lower extremity edema with erythema and cellulitis that is improving from 2 days ago, as per staff), Swelling, Other (Left upper extremity has chronic lymphedema) Neurologic/Psychiatric: Alert, Oriented x3 (AO x2, does not know the date or day, but this could be due to being in the [place] [facility] and not keeping track of days her dates), No Motor/Sensory Deficits, Normal Mood/Affect, spot checker II-XII Norm as Tested, Other (Patient is unable to ambulate at baseline. She uses a whee lchair) Lymphatic: No Adenopathy Focused Exam Lactate Level 12/11/22 12:15: Lactic Acid Level 0.70 Lactic Acid Level Laboratory Tests Test 12/11/22 12:15 Lactic Acid Level 0.70 MMOL/L (0.50-2.00) Progress/Results/Core Measures Suspected Sepsis SIRS Temperature: Pulse: Respiratory Rate: Laboratory Tests 12/11/22 12:15: White Blood Count 4.3 Blood Pressure / Mean: 12/11/22 12:15: Lactic Acid Level 0.70 Laboratory Tests 12/11/22 12:15: Creatinine 2.47H, INR Comment 1.2, Platelet Count 243, Total Bilirubin 0.3 Results/Orders Lab Results Laboratory Tests Test 12/11/22 12:15 Range/Units White Blood Count 4.3 4.3-11.0 10^3/uL Red Blood Count 3.79 L 3.80-5.11 10^6/uL Hemoglobin 10.0 #L 11.5-16.0 g/dL Hematocrit 33 L 35-52 % Mean Corpuscular Volume 87 80-99 fL Mean Corpuscular Hemoglobin 26 25-34 pg Mean Corpuscular Hemoglobin Concent 30 L 32-36 g/dL Red Cell Distribution Width 17.1 H 10.0-14.5 % Platelet Count 243 130-400 10^3/uL Mean Platelet Volume 9.9 9.0-12.2 fL Immature Granulocyte % (Auto) 0 % Neutrophils (%) (Auto) 66 42-75 % Lymphocytes (%) (Auto) 19 12-44 % Monocytes (%) (Auto) 8 0-12 % Eosinophils (%) (Auto) 6 0-10 % Basophils (%) (Auto) 1 0-10 % Neutrophils # (Auto) 2.9 1.8-7.8 10^3/uL Lymphocytes # (Auto) 0.8 L 1.0-4.0 10^3/uL Monocytes # (Auto) 0.3 0.0-1.0 10^3/uL Eosinophils # (Auto) 0.3 0.0-0.3 10^3/uL Basophils # (Auto) 0.0 0.0-0.1 10^3/uL Immature Granulocyte # (Auto) 0.0 0.0-0.1 10^3/uL Prothrombin Time 15.4 H 12.2-14.7 SEC INR Comment 1.2 0.8-1.4 Activated Partial Thromboplast Time 28 24-35 SEC D-Dimer 1.48 H 0.00-0.49 UG/ML Urine Color YELLOW Urine Clarity CLOUDY Urine pH 7.5 5-9 Urine Specific [place] 1.015 L 1.016-1.022 Urine Protein 3+ H NEGATIVE Urine Glucose (UA) NEGATIVE NEGATIVE Urine Ketones NEGATIVE NEGATIVE Urine Nitrite NEGATIVE NEGATIVE Urine Bilirubin NEGATIVE NEGATIVE Urine Urobilinogen 0.2 < = 1.0 MG/DL Urine Leukocyte Esterase 2+ H NEGATIVE Urine RBC (Auto) 3+ H NEGATIVE Urine RBC 50-100 H /HPF Urine WBC 50-100 H /HPF Urine Squamous Epithelial Cells 2-5 /HPF Urine Crystals NONE /LPF Urine Bacteria LARGE H /HPF Urine Casts NONE /LPF Urine Mucus NEGATIVE /LPF Urine Culture Indicated YES Sodium Level 146 H 135-145 MMOL/L Potassium Level 4.6 3.6-5.0 MMOL/L Chloride Level 108 H 98-107 MMOL/L Carbon Dioxide Level 26 21-32 MMOL/L Anion Gap 12 5-14 MMOL/L Blood Urea Nitrogen 82 H 7-18 MG/DL Creatinine 2.47 H 0.60-1.30 MG/DL Estimat Glomerular Filtration Rate 20 BUN/Creatinine Ratio 33 Glucose Level 120 H 70-105 MG/DL Lactic Acid Level 0.70 0.50-2.00 MMOL/L Calcium Level 8.0 L 8.5-10.1 MG/DL Corrected Calcium 8.4 L 8.5-10.1 MG/DL Magnesium Level 2.3 1.6-2.4 MG/DL Total Bilirubin 0.3 0.1-1.0 MG/DL Aspartate Amino Transf (AST/SGOT) 27 5-34 U/L Alanine Aminotransferase (ALT/SGPT) 26 0-55 U/L Alkaline Phosphatase 335 H 40-136 U/L Troponin I < 0.30 <0.30 NG/ML Pro-B-Type Natriuretic Peptide 8186.0 H <125.0 PG/ML Total Protein 6.9 6.4-8.2 GM/DL Albumin 3.5 3.2-4.5 GM/DL My Orders Orders - PRAKASH HANKINS MD Chest 1 View Ap/Pa Only (12/11/22 12:20) Ct Head Wo (12/11/22 12:28) Cbc With Automated Diff (12/11/22 12:28) Comprehensive Metabolic Panel (12/11/22 12:28) Fibrin Degradation Products (12/11/22 12:28) Magnesium (12/11/22 12:28) Protime With Inr (12/11/22 12:) Partial Thromboplastin Time (12/11/22 12:28) Ua Culture If Indicated (12/11/22 12:28) Blood Culture (12/11/22 12:28) Probnp Fs (12/11/22 12:28) Troponin I Fs (12/11/22 12:28) Lactic Acid Analyzer (12/11/22 12:28) Urine Culture (12/11/22 12:15) Bumetanide Injection (Bumex Injection) (12/11/22 13:30) Bumetanide Injection (Bumex Injection) (12/11/22 13:34) Vancomycin Injection (Vancomycin Injecti (12/11/22 13:45) Gentamicin Pediatric (Gentamicin Pediatr (12/11/22 13:39) Ed Admission (Communication) (12/11/22 14:35) Medications Given in ED Current Medications Medications Dose Ordered Sig/Francy Route Start Time Stop Time Status Last Admin Dose Admin Bumetanide 2 mg ONCE ONCE IV 12/11/22 13:30 12/11/22 13:31 DC 12/11/22 14:05 2 MG Vancomycin HCl 1000 mg/Sodium Chloride 250 ml @ 250 mls/hr ONCE ONCE IV 12/11/22 13:45 12/11/22 14:44 DC 12/11/22 14:06 250 MLS/HR Vital Signs/I&O 12/11/22 12:26 Temp 36.3 Pulse 66 Resp 22 B/P (MAP) 172/63 (99) Pulse Ox 97 O2 Delivery Nasal Cannula O2 Flow Rate 2.00 Capillary Refill : Progress Note : Progress Note Patient is DNR 1. GENERALIZED WEAKNESS/ ALTERED MENTAL STATUS: - CXR: No acute findings - CT HEAD: No acute finding - Troponin undetected - CBC/ CMP: Normal WBC, alkaline phosphatase is 335 and patient will need an ultrasound of the right upper quadrant once she gets to [place] since ultrasound is not available at [place] today. - Lactic acid: Normal -Blood culture sent -Will admit to [facility] in [place]. Discussed with hospitalist and accepted for admission 2. ELEVATED D-DIMER: -D-dimer is elevated at 1.48 -Patient will need Doppler ultrasound of bilateral lower extremity and VQ scan, neither of which are available at [place] today -Patient is unable to get a CTA due to elevated creatinine 3. COVID POSITIVE: - PT is COVID-positive and is on day 3 of Paxlovid 4. UTI & BILATERAL LOWER EXTREMITY CELLULITIS: -Patient has bilateral lower extremity cellulitis and UTI on day 2 of doxycycline - I checked past records and saw that patient's urine culture and sensitivity from November 25, 2022, is positive for Proteus and Enterococcus faecalis, and after reviewing culture and sensitivity I have started vancomycin 1 g IV stat in the ER for Enterococcus. Plan was to start gentamicin IV as well for the Proteus, however we do not carry it in the ER and adult dosing at [place], and also discussed with hospitalist and will hold the plan for gentamicin due to patient's kidney function. Second antibiotic will be started by hospitalist once patient gets to [place] 5. CHF: - BNP: 8,186 -Bumetanide 2 mg IV stat in ER due to bilateral lower extremity edema and elevated BNP 6. CKD: - s. creatinine is 2.47, which is improved from the last visit when it was 2.79 Diagnostic Imaging Diagonstic Imaging: Xray, CT Plain Films/CT/US/NM/MRI: chest, head Comments [facility] [place], [place] NAME: RO TOLENTINO MED REC#: [id number] PT STATUS: REG ER : 1950 PHYSICIAN: PRAKASH HANKINS MD ADMIT DATE: 12/11/22/ER FS Draft Date of Exam:12/11/22 CHEST 1 VIEW AP/PA ONLY HISTORY: Altered mental status TECHNIQUE: Frontal view of the chest. COMPARISON: 12/09/2022 FINDINGS: Lung volumes are normal. There is stable cardiomegaly. There may be mild central vascular congestion. There is no pleural effusion or pneumothorax. IMPRESSION: 1. Stable cardiomegaly with mild central vascular congestion. Dictated on workstation # [id number] Dict: 12/11/22 1306 Trans: 12/11/22 [address] [facility] [id number] Interpreted by: MABLE TAVAREZ MD Electronically signed by: [facility]. [place], [place] NAME: RO TOLENTINO MED REC#: [id number] PT STATUS: REG ER : 1950 PHYSICIAN: PRAKASH HANKINS MD ADMIT DATE: 12/11/22/ER FS Draft Date of Exam:12/11/22 CT HEAD WO PROCEDURE: CT head without contrast. TECHNIQUE: Multiple contiguous axial images were obtained through the brain without the use of intravenous contrast. Auto Exposure Controls were utilized during the CT exam to meet ALARA standards for radiation dose reduction. INDICATION: Altered mental status. COMPARISON: 06/17/2022. DISCUSSION: Exam is degraded by motion. Mild diffuse brain volume loss is likely age related. No acute intracranial hemorrhage, mass, midline shift, or hydrocephalus. The orbits, sinuses, mastoid air cells, and calvarium are grossly normal. IMPRESSION: 1. Exam limited due to motion. No acute intracranial abnormality identified. Dictated on workstation # [id number] Dict: 12/11/22 1259 Trans: 12/11/22 13[address] [facility] [id number] Interpreted by: SEJAL BOSTON MD Electronically signed by: Departure Communication (Admissions) Time/Spoke to Admitting Phy: 14:[address] Burton and accepted for admission Impression Primary Impression: Altered mental status Qualified Codes: R41.82 - Altered mental status, unspecified Additional Impressions: Generalized weakness SARS-CoV-2 positive Bilateral lower leg cellulitis Elevated d-dimer Disposition: 30 STILL A PATIENT Condition: Stable Admissions Decision to Admit Reason: Admit from ER (General) Decision to Admit/Date: Dec 11, 2022 Time/Decision to Admit Time: 13:30 Transfer Method of Transfer: EMS Departure-Patient Inst. Referrals: BERNADINE LUNDBERG MD (PCP) Primary Care Physician PRAKASH HANKINS MD Dec 11, 2022 12:25
[2022-12-11 12:35] LABS: BASOPHILS % (AUTO) 1 % (0-10); EOSINOPHILS # (AUTO) 0.3 10^3/uL (0.0-0.3); EOSINOPHILS % (AUTO) 6 % (0-10); HEMATOCRIT 33 % (35-52); LYMPHOCYTES # (AUTO) 0.8 10^3/uL (1.0-4.0); LYMPHOCYTES % (AUTO) 19 % (12-44); MEAN CORPUSCULAR HEMOGLOBIN 26 pg (25-34); MEAN CORPUSCULAR HGB CONC 30 g/dL (32-36); MEAN CORPUSCULAR VOLUME 87 fL (80-99); MEAN PLATELET VOLUME 9.9 fL (9.0-12.2); MONOCYTES # (AUTO) 0.3 10^3/uL (0.0-1.0); MONOCYTES % (AUTO) 8 % (0-12); NEUTROPHILS # (AUTO) 2.9 10^3/uL (1.8-7.8); NEUTROPHILS % (AUTO) 66 % (42-75); PLATELET COUNT 243 10^3/uL (130-400); WHITE BLOOD COUNT 4.3 10^3/uL (4.3-11.0)
[2022-12-11 12:37] LABS: BILIRUBIN,URINE NEGATIVE (NEGATIVE); COLOR,URINE YELLOW; GLUCOSE, URINE (UA) NEGATIVE (NEGATIVE); KETONES,URINE NEGATIVE (NEGATIVE); LEUKOCYTE ESTERASE ,URINE 2+ (NEGATIVE); NITRITE,URINE NEGATIVE (NEGATIVE); PH,URINE 7.5 (5-9); PROTEIN,URINE 3+ (NEGATIVE)
[2022-12-11 12:40] LABS: BACTERIA,URINE LARGE /HPF; CLARITY,URINE CLOUDY; INR 1.2 (0.8-1.4); PROTHROMBIN TIME PATIENT 15.4 SEC (12.2-14.7); RBC,URINE 50-100 /HPF; WBC,URINE 50-100 /HPF
[2022-12-11 12:45] LABS: FIBRIN DEGRADATION PRODUCTS 1.48 UG/ML (0.00-0.49)
[2022-12-11 12:48] LABS: ALANINE AMINOTRANSFERASE 26 U/L (0-55); ALBUMIN 3.5 GM/DL (3.2-4.5); ALKALINE PHOSPHATASE 335 U/L (40-136); BILIRUBIN,TOTAL 0.3 MG/DL (0.1-1.0); BUN/CREATININE RATIO 33; CREATININE SERUM 2.47 MG/DL (0.60-1.30); GFR ESTIMATED 20; GLUCOSE 120 MG/DL (70-105); MAGNESIUM 2.3 MG/DL (1.6-2.4); TOTAL PROTEIN 6.9 GM/DL (6.4-8.2)
[2022-12-11 12:49] LABS: CARBON DIOXIDE 26 MMOL/L (21-32)
--- NOTE | 2022-12-11 13:01 | Diagnostic Imaging Report ---
PROCEDURE: CT head without contrast. TECHNIQUE: Multiple contiguous axial images were obtained through the brain without the use of intravenous contrast. Auto Exposure Controls were utilized during the CT exam to meet ALARA standards for radiation dose reduction. INDICATION: Altered mental status. COMPARISON: 06/17/2022. DISCUSSION: Exam is degraded by motion. Mild diffuse brain volume loss is likely age related. No acute intracranial hemorrhage, mass, midline shift, or hydrocephalus. The orbits, sinuses, mastoid air cells, and calvarium are grossly normal. IMPRESSION: 1. Exam limited due to motion. No acute intracranial abnormality identified. Dictated by: Dictated on workstation # [id number]
[2022-12-11 13:09] LABS: CHLORIDE 108 MMOL/L (98-107); POTASSIUM 4.6 MMOL/L (3.6-5.0); SODIUM 146 MMOL/L (135-145)
--- NOTE | 2022-12-11 13:13 | Diagnostic Imaging Report ---
HISTORY: Altered mental status TECHNIQUE: Frontal view of the chest. COMPARISON: 12/09/2022 FINDINGS: Lung volumes are normal. There is stable cardiomegaly. There may be mild central vascular congestion. There is no pleural effusion or pneumothorax. IMPRESSION: 1. Stable cardiomegaly with mild central vascular congestion. Dictated by: Dictated on workstation # [id number]
[2022-12-11] MEDS ORDERED: BUMETANIDE 1 MG/4 ML (BUMEX) VIAL IV ONE (13:30)
[2022-12-11] MEDS ORDERED: BUMETANIDE 2.5 MG/10 ML (BUMEX) VIAL ONE (13:34)
[2022-12-11] MEDS ORDERED: GENTAMICIN (PED.) 20 MG/2 ML VIAL ONE (13:39)
[2022-12-11] MEDS ORDERED: VANCOMYCIN INJECTION 1,000 MG in NS (IVPB) 250 ML IV ONE (13:45)
[2022-12-11 16:25] VITALS: BP 159/60
[2022-12-11 16:42] VITALS: BP 159/60
[2022-12-11] MEDS ORDERED: ACETAMINOPHEN 325 MG TABLET PO PRN (17:00)
[2022-12-11] MEDS ORDERED: RT-ALBUTEROL HFA 8.5 GM INHALER IH PRN (17:00)
[2022-12-11] MEDS ORDERED: DOXY100T2 PO (17:06)
[2022-12-11] MEDS ORDERED: NYST15PO4 TP (17:12)
[2022-12-11] MEDS ORDERED: CARV12.53 PO (17:12)
[2022-12-11] MEDS ORDERED: PANT40TA2 PO (17:12)
[2022-12-11] MEDS ORDERED: GUAI-912 PO (17:12)
--- NOTE | 2022-12-11 19:16 | Diagnostic Imaging Report ---
Clinical indication: Patient with swelling of both lower extremities with pain and ulcers. Comparison: None. Procedure: Ultrasound venous ultrasound of the bilateral lower extremities with multiple real-time grayscale images were obtained in various projections. Additional spectral analysis and color Doppler duplex images were also obtained. Imaging was obtained from the common femoral veins to the peroneal and posterior tibial veins, bilaterally. Findings: Limited evaluation due to patient body habitus and motion due to pain. The deep venous system is well visualized and is easily compressible. There is no evidence of deep venous thrombosis, valvular incompetence or significant collateral circulation. There is no fluid collection in the popliteal fossa region. There is soft tissue swelling involving both lower lower extremities. Impression: There is no ultrasound Doppler evidence of deep venous thrombosis in the bilateral lower extremities. Dictated by: Dictated on workstation # [id number]
[2022-12-11 19:26] VITALS: BP 186/83
[2022-12-11 20:40] VITALS: BP 150/68
[2022-12-11] MEDS: inSUlin ASPART (NovoLOG) 1 UNIT/0.01 ML (CHARGE PER UNIT) SC SCH (20:46)
[2022-12-11] MEDS ORDERED: TRIMETHO IV SCH (21:00)
[2022-12-11] MEDS ORDERED: NIRMATRELVIR/RITONAVIR (PAXLOVID) TABLET PO SCH (21:00)
[2022-12-11] MEDS ORDERED: D5W IV SCH (21:00)
[2022-12-11] MEDS ORDERED: SULFAMETHOXAZOLE IV SCH (21:00)
--- NOTE | 2022-12-11 21:08 | Diagnostic Imaging Report ---
CLINICAL INDICATION: Patient with history of cholecystectomy. EXAM: Right upper quadrant ultrasound. COMPARISON: None. FINDINGS: Limited exam due to patient body habitus and overlying bowel gas. Bowel gas obscures the pancreas and the pancreas is unable to be visualized or evaluated. The visualized portions of the abdominal aorta and IVC are unremarkable. There is diffuse hyperechogenicity seen throughout the liver. The liver measures 18.3 cm. The liver surface is smooth. There is no liver mass. The main portal vein demonstrates hepatopetal flow. The gallbladder is surgically absent. There is no intrahepatic or extrahepatic ductal dilation. The common bile duct measures 5 mm. The right measures 9.3 cm in craniocaudal dimension. There is no hydronephrosis or mass. There is no abdominal ascites. IMPRESSION: 1: There is no ultrasound evidence of acute abnormality on this exam. Gallbladder is surgically absent. There are no dilated ducts. 2: There is hepatomegaly and diffuse hyperechogenicity seen throughout the liver which may be related to diffuse fatty infiltration. 3: The pancreas is unable to be visualized on this exam due to overlying bowel gas. If there is concern for pancreatitis, serology test would better evaluate. Dictated by: Dictated on workstation # [id number]
[2022-12-11] MEDS: RT-ALBUTEROL HFA 8.5 GM INHALER IH SCH (21:12)
--- NOTE | 2022-12-11 21:40 | Diagnostic Imaging Report ---
Clinical indication: Patient with altered mental status. Comparison: Portable chest x-ray dated 12/11/2022. Procedure: Nuclear medicine Perfusion study was performed with 5.5 mCi Tc 99m MAA. AP perfusion image was only obtained due to patient body habitus and patient unable to move. Ventilation portion of this exam was not performed. Findings and impression: 1. When comparing the perfusion study to the chest x-ray, there are no focal segmental or subsegmental perfusion defects seen. 2. Limited exam suggests low probability for pulmonary embolism. Dictated by: Dictated on workstation # [id number]
[2022-12-11 23:59] VITALS: BP 134/69
[2022-12-12] VITALS (8 sets, daily range): BP systolic 122–178; BP diastolic 51–70
[2022-12-12] MEDS: RT-ALBUTEROL HFA 8.5 GM INHALER IH SCH ×4 (02:08→20:55)
[2022-12-12 06:24] LABS: BASOPHILS # (AUTO) 0.1 10^3/uL (0.0-0.1); BASOPHILS % (AUTO) 1 % (0-10); EOSINOPHILS # (AUTO) 0.3 10^3/uL (0.0-0.3); EOSINOPHILS % (AUTO) 7 % (0-10); HEMATOCRIT 23 % (35-52); LYMPHOCYTES # (AUTO) 0.8 10^3/uL (1.0-4.0); LYMPHOCYTES % (AUTO) 20 % (12-44); MEAN CORPUSCULAR HEMOGLOBIN 27 pg (25-34); MEAN CORPUSCULAR HGB CONC 30 g/dL (32-36); MEAN CORPUSCULAR VOLUME 89 fL (80-99); MEAN PLATELET VOLUME 9.8 fL (9.0-12.2); MONOCYTES # (AUTO) 0.4 10^3/uL (0.0-1.0); MONOCYTES % (AUTO) 10 % (0-12); NEUTROPHILS # (AUTO) 2.6 10^3/uL (1.8-7.8); NEUTROPHILS % (AUTO) 62 % (42-75); PLATELET COUNT 238 10^3/uL (130-400); WHITE BLOOD COUNT 4.2 10^3/uL (4.3-11.0)
[2022-12-12] MEDS: inSUlin ASPART (NovoLOG) 1 UNIT/0.01 ML (CHARGE PER UNIT) SC SCH ×4 (06:24→20:48)
[2022-12-12] MEDS: LEVOTHYROXINE 125 MCG (LEVOTHROID) TABLET PO SCH (06:29)
[2022-12-12 06:32] LABS: HEMOGLOBIN 6.8 g/dL (11.5-16.0)
[2022-12-12 06:39] LABS: CALCIUM 7.8 MG/DL (8.5-10.1); CREATININE SERUM 2.24 MG/DL (0.60-1.30)
[2022-12-12] MEDS ORDERED: VANCOMYCIN 1 GM/NS 250 ML IVPB IV SCH ×2 (09:00)
[2022-12-12] MEDS ORDERED: NIRMATRELVIR/RITONAVIR (PAXLOVID) TABLET PO SCH (09:15)
[2022-12-12] MEDS: BUMETANIDE 1 MG/4 ML (BUMEX) VIAL IV SCH (09:30)
[2022-12-12] MEDS ORDERED: TRIM/SULFAMETH 160/800 (SEPTRA DS) TAB PO ONE (09:45)
--- NOTE | 2022-12-12 11:55 | Progress Note - Hospitalist ---
Subjective HPI/CC On Admission Date Seen by Provider: Dec 12, 2022 Time Seen by Provider: 10:30 Subjective/Events-last exam Initial Comments 72-year-old female with PMH of obesity/left mastectomy with left arm ly mphedema/aortic valve stenosis/CHF on bumetanide 2 mg twice daily/CKD/hypothyroidism/type II DM/COPD on 3 L of oxygen at baseline/HTN/bilateral lower extremity cellulitis on doxycycline/COVID-positive on day 3 of Paxlovid, is brought in by EMS from the [facility] for altered mental status. Patient was in the ER 2 days ago and was diagnosed with COVID and started on Paxlovid. Today at the [facility] staff has stated that patient appears to have an increasing altered mental status and was seen slumped over in her wheelchair and sleeping which is unlike her. Patient is able to answer all questions in the ER and is not complaining of any pain. Patient states that she feels very tired and lethargic, and does not have an appetite. Patient has an indwelling Woody and the urine bag was changed yesterday. Denies diarrhea, chest pain, palpitations, abdominal pain, dizziness, headache Upon my arrival the patient was tearful reporting that she just wanted to go home. When questioned where that was she states that she lives with her parents. I asked her how old she was and she appropriately told me she was 72 although she also told me when I ask her parents age that they were 72 as well. She was sleeping upon my arrival and easily arousable but was tearful during the interview voicing no other complaints she denied dysuria or pain and denies shortness of breath at rest. Focused Exam Lactate Level 12/11/22 12:15: Lactic Acid Level 0.70 Objective Exam Vital Signs Vital Signs Date Time Temp Pulse Resp B/P (MAP) Pulse Ox O2 Delivery O2 Flow Rate FiO2 12/12/22 11:38 36.7 70 14 178/70 (106) 94 Nasal Cannula 2.00 Capillary Refill : Less Than 3 Seconds General Appearance: Moderate Distress, Obese Respiratory: Chest Non Tender, Lungs Clear, Normal Breath Sounds, No Accessory Muscle Use, No Respiratory Distress Cardiovascular: Regular Rate, Rhythm, No Gallop, Systolic Murmur (2/6 heard best left lower sternal border.) Gastrointestinal: Normal Bowel Sounds, No Organomegaly, No Pulsatile Mass, Non Tender, Soft Extremity: Other ( 1-2+ bilateral tibial and pedal edema no ulceration noted. No erythema.) Results/Procedures Lab Laboratory Tests 12/11/22 12:15 12/12/22 06:03 Patient resulted labs reviewed. Assessment/Plan Assessment and Plan Assess & Plan/Chief Complaint 1. Presumed urinary tract infection with sepsis in a morbidly obese individual with stage IV-V chronic renal disease extremely poor prognosis. Considering her list of allergies and the fact that she had a urinary tract culture of Enterococcus faecalis and Proteus options are very limited. She is going to require too much IV fluid to give IV Bactrim so we will just give this orally. Microbiology is just reporting a gram negative lidia if this holds up on final report should be able to discontinue vancomycin. 2. Type 2 diabetes current poor p.o. intake blood sugars have not been significantly elevated we will just initiate sliding scale a for now and hold other diabetic medication. 3. History of hypertension with stage IV-V chronic renal disease. 4. Severe anemia likely of chronic renal disease reports the patient has been admitted in the past it is not clear as to whether or not she has been receiving erythropoietin but will give 1 unit of packed cells today. Repeat BMP CBC in the morning. Critical Care Critically Ill Patient JORDYN HALE MD Dec 12, 2022 11:55
[2022-12-12] MEDS ORDERED: amLODIPine 5 MG (NORVASC) TAB PO ONE (12:00)
[2022-12-12] MEDS ORDERED: VENlafaxine XR 75 MG (EFFEXOR XR) CAP PO ONE (12:00)
[2022-12-12] MEDS ORDERED: NS IV 500 ML 500 ML IV SCH (12:45)
[2022-12-12] MEDS: ACETAMINOPHEN 325 MG TABLET PO PRN (13:13)
[2022-12-12] MEDS: TRIM/SULFAMETH 160/800 (SEPTRA DS) TAB PO SCH (16:54)
[2022-12-12] MEDS: VANCOMYCIN 750 MG/NS 250 ML IVPB IV SCH ×2 (19:41)
[2022-12-12] MEDS: MELATONIN 3 MG TABLET PO PRN (19:47)
[2022-12-13] VITALS (8 sets, daily range): BP systolic 135–154; BP diastolic 56–76
[2022-12-13] MEDS: RT-ALBUTEROL HFA 8.5 GM INHALER IH SCH ×4 (02:24→21:53)
[2022-12-13 05:35] LABS: BASOPHILS # (AUTO) 0.1 10^3/uL (0.0-0.1); BASOPHILS % (AUTO) 1 % (0-10); EOSINOPHILS # (AUTO) 0.3 10^3/uL (0.0-0.3); EOSINOPHILS % (AUTO) 5 % (0-10); HEMATOCRIT 27 % (35-52); HEMOGLOBIN 8.2 g/dL (11.5-16.0); LYMPHOCYTES # (AUTO) 1.1 10^3/uL (1.0-4.0); LYMPHOCYTES % (AUTO) 21 % (12-44); MEAN CORPUSCULAR HEMOGLOBIN 26 pg (25-34); MEAN CORPUSCULAR HGB CONC 30 g/dL (32-36); MEAN CORPUSCULAR VOLUME 88 fL (80-99); MEAN PLATELET VOLUME 9.7 fL (9.0-12.2); MONOCYTES # (AUTO) 0.5 10^3/uL (0.0-1.0); MONOCYTES % (AUTO) 10 % (0-12); NEUTROPHILS # (AUTO) 3.2 10^3/uL (1.8-7.8); NEUTROPHILS % (AUTO) 62 % (42-75); PLATELET COUNT 250 10^3/uL (130-400); WHITE BLOOD COUNT 5.1 10^3/uL (4.3-11.0)
[2022-12-13] MEDS: LEVOTHYROXINE 125 MCG (LEVOTHROID) TABLET PO SCH (05:36)
[2022-12-13] MEDS: inSUlin ASPART (NovoLOG) 1 UNIT/0.01 ML (CHARGE PER UNIT) SC SCH ×4 (05:41→22:00)
[2022-12-13] MEDS: ACETAMINOPHEN 325 MG TABLET PO PRN (05:42)
[2022-12-13 06:10] LABS: CREATININE SERUM 2.38 MG/DL (0.60-1.30); POTASSIUM 4.1 MMOL/L (3.6-5.0)
[2022-12-13 06:14] LABS: ANISOCYTOSIS SLIGHT; EOSINOPHILS % (MANUAL) 5 %; HYPOCHROMASIA SLIGHT; LYMPHOCYTES % (MANUAL) 26 %; MICROCYTOSIS SLIGHT; MONOCYTES % (MANUAL) 4 %; NEUTROPHILS % (MANUAL) 65 %; POLYCHROMASIA SLIGHT; ROULEAUX SLIGHT
[2022-12-13] MEDS ORDERED: VENlafaxine XR 75 MG (EFFEXOR XR) CAP PO SCH (07:00)
[2022-12-13] MEDS: BUMETANIDE 1 MG/4 ML (BUMEX) VIAL IV SCH (08:41)
[2022-12-13] MEDS: TRIM/SULFAMETH 160/800 (SEPTRA DS) TAB PO SCH (08:41)
[2022-12-13] MEDS: VANCOMYCIN 750 MG/NS 250 ML IVPB IV SCH ×4 (08:42→21:37)
[2022-12-13] MEDS: NIRMATRELVIR/RITONAVIR (PAXLOVID) TABLET PO SCH ×2 (08:45→22:05)
[2022-12-13] MEDS ORDERED: amLODIPine 5 MG (NORVASC) TAB PO SCH (09:00)
[2022-12-13] MEDS ORDERED: AMLO-250 PO (14:04)
[2022-12-13] MEDS ORDERED: ALPR0.254 PO (14:16)
--- NOTE | 2022-12-13 14:20 | Progress Note - Hospitalist ---
JENNIFFER IRVIN 12/13/22 1420: Subjective HPI/CC On Admission Date Seen by Provider: Dec 13, 2022 Time Seen by Provider: 08:45 Altered Mental Status, recent COVID infection Subjective/Events-last exam Dannielle Lopez is a 72 yo F with an extensive past medical history who was admitted to the Med-Surg floor after arriving to the ED on 12/11 for altered mental status with recent COVID infection. This morning she is sleeping in bed but easily aroused. She is wearing 2L o2 via nasal cannula and in no acute distress. She states that an 8/10 chest pain is what originally brought her in to the ED. She denies pain or concerns at this time. Reports she has not had a bowel movement or left her bed since admit. Perry catheter is in place. Review of Systems General: No Chills; Fatigue, Malaise HEENT: No Head Aches, No Dysphasia Pulmonary: No Dyspnea, No Cough Cardiovascular: No: Chest Pain, Palpitations Gastrointestinal: No: Nausea, Vomiting, Abdominal Pain Genitourinary: Other (perry in place) Musculoskeletal: arm pain (swelling in left arm with compression sleeve in place) Neurological: Weakness, Confusion Focused Exam Lactate Level 12/11/22 12:15: Lactic Acid Level 0.70 Objective Exam Vital Signs Vital Signs Date Time Temp Pulse Resp B/P (MAP) Pulse Ox O2 Delivery O2 Flow Rate FiO2 12/13/22 13:00 62 12/13/22 11:21 35.9 20 152/71 (98) 96 Nasal Cannula 2.00 Capillary Refill : Less Than 3 Seconds General Appearance: No Apparent Distress, Obese HEENT: PERRL/EOMI, Moist Mucous Membranes; No Scleral Icterus (L), No Scleral Icterus (R) Respiratory: Lungs Clear, Normal Breath Sounds, No Accessory Muscle Use, No Respiratory Distress, Other (2L o2 via nasal cannula) Cardiovascular: Regular Rate, Rhythm, No Murmur, Normal Peripheral Pulses Gastrointestinal: Normal Bowel Sounds, Non Tender, Soft Extremity: Pedal Edema, Swelling (Bilateral LE / left arm) Neurologic/Psychiatric: Alert Skin: Warm/Dry Results/Procedures Lab Laboratory Tests 12/13/22 05:24 Patient resulted labs reviewed. Assessment/Plan Assessment and Plan Assess & Plan/Chief Complaint Assess & Plan/Chief Complaint 1. Presumed urinary tract infection with sepsis in a morbidly obese individual with stage IV-V chronic renal disease extremely poor prognosis -Considering her list of allergies and the fact that she had a urinary tract culture of Enterococcus faecalis and Proteus options are very limited. -She is going to require too much IV fluid to give IV Bactrim so we will just give this orally. -Microbiology is just reporting a gram negative lidia if this holds up on final report should be able to discontinue vancomycin. 2. Diabetes, type II -Current poor p.o. intake blood sugars have not been significantly elevated we will just initiate sliding scale a for now and hold other diabetic medication. 3. History of hypertension with stage IV-V chronic renal disease. -Currently on Amlodipine 4. Severe anemia likely of chronic renal disease -12/12 pt given 1 unit of packed cells. Hgb 6.8. -Hgb is 8.2 5. Recently diagnosed COVID infection -Paxlovid continue with 5-day course. 6. Elevated Dimer -Lung scan perfusion shows low probability for pulmonary embolism -Venous Doppler resulted bilateral LE DVT LETITIA MCCLOUD DO 12/14/22 0528: Supervisory-Addendum Brief Verification & Attestation Participated in pt care: history, MDM, physical Personally performed: exam, history, MDM, supervision of care Care discussed with: Medical Student Procedures: n/a Results interpretation: Verified all documentation Verification and Attestation of Medical Student E/M Service A medical student performed and documented this service in my presence. I rev iewed and verified all information documented by the medical student and made modifications to such information, when appropriate. I personally performed the physical exam and medical decision making. Letitia Mccloud, Dec 14, 2022,05:28 JENNIFFER IRVIN Dec 13, 2022 14:20 LETITIA MCCLOUD DO Dec 14, 2022 05:28
[2022-12-13] MEDS ORDERED: DOXEPIN HCL 6 MG PO PRN (18:00)
[2022-12-13] MEDS ORDERED: ACETAMINOPHEN 500 MG TAB (TYLENOL) PO PRN (18:00)
[2022-12-13] MEDS ORDERED: RT-ALBUTEROL SULF 2.5 MG/3 ML PRE-MIX VIAL IH PRN (18:00)
[2022-12-13] MEDS ORDERED: polyethylene glycoL POWDER 17 GM (MIRALAX) PACK PO PRN (18:00)
[2022-12-13] MEDS: BUMETANIDE 1 MG (BUMEX) TAB PO SCH (18:50)
[2022-12-13] MEDS ORDERED: TROUGH ORDER-PHARMACY XX NR (19:30)
[2022-12-13] MEDS: GABAPENTIN 600 MG (NEURONTIN) TAB PO SCH (22:01)
[2022-12-13] MEDS: NYSTATIN ORAL SUSP 5 ML UDC PO SCH (22:02)
[2022-12-13] MEDS: guaiFENesin (MUCINEX) 600 MG TAB PO SCH (22:02)
[2022-12-13] MEDS: VENlafaxine 37.5 MG (EFFEXOR) TAB PO SCH (22:02)
[2022-12-13] MEDS: MELATONIN 3 MG TABLET PO PRN (23:47)
[2022-12-14] MEDS: ALPRAZolam 0.25 MG (XANAX) TAB PO PRN ×2 (01:19→21:10)
[2022-12-14] MEDS: RT-ALBUTEROL HFA 8.5 GM INHALER IH SCH ×4 (03:04→21:27)
[2022-12-14 03:46] VITALS: BP 146/73
[2022-12-14] MEDS: inSUlin ASPART (NovoLOG) 1 UNIT/0.01 ML (CHARGE PER UNIT) SC SCH ×4 (06:28→20:42)
[2022-12-14] MEDS: BUMETANIDE 1 MG (BUMEX) TAB PO SCH ×2 (06:29→17:12)
[2022-12-14] MEDS: LEVOTHYROXINE 125 MCG (LEVOTHROID) TABLET PO SCH (06:29)
[2022-12-14] MEDS: KCL 20 MEQ TAB (K-DUR) PO SCH (06:29)
[2022-12-14 06:53] LABS: BASOPHILS # (AUTO) 0.1 10^3/uL (0.0-0.1); BASOPHILS % (AUTO) 1 % (0-10); EOSINOPHILS # (AUTO) 0.3 10^3/uL (0.0-0.3); EOSINOPHILS % (AUTO) 6 % (0-10); HEMATOCRIT 25 % (35-52); HEMOGLOBIN 7.8 g/dL (11.5-16.0); LYMPHOCYTES # (AUTO) 0.9 10^3/uL (1.0-4.0); LYMPHOCYTES % (AUTO) 18 % (12-44); MEAN CORPUSCULAR HEMOGLOBIN 27 pg (25-34); MEAN CORPUSCULAR HGB CONC 31 g/dL (32-36); MEAN CORPUSCULAR VOLUME 87 fL (80-99); MEAN PLATELET VOLUME 9.9 fL (9.0-12.2); MONOCYTES # (AUTO) 0.5 10^3/uL (0.0-1.0); MONOCYTES % (AUTO) 11 % (0-12); NEUTROPHILS # (AUTO) 3.2 10^3/uL (1.8-7.8); NEUTROPHILS % (AUTO) 64 % (42-75); PLATELET COUNT 236 10^3/uL (130-400)
[2022-12-14 07:12] LABS: ALBUMIN 2.9 GM/DL (3.2-4.5); BILIRUBIN,TOTAL 0.4 MG/DL (0.1-1.0); CALCIUM 7.9 MG/DL (8.5-10.1); CREATININE SERUM 2.38 MG/DL (0.60-1.30); POTASSIUM 4.3 MMOL/L (3.6-5.0); TOTAL PROTEIN 5.8 GM/DL (6.4-8.2)
[2022-12-14] MEDS ORDERED: TROUGH ORDER-PHARMACY XX ONE (08:30)
[2022-12-14 08:45] VITALS: BP 123/69
[2022-12-14] MEDS: inSUlin ASPART (NovoLOG) 1 UNIT/0.01 ML (CHARGE PER UNIT) SQ SCH ×3 (08:55→16:16)
[2022-12-14] MEDS: TRIM/SULFAMETH 160/800 (SEPTRA DS) TAB PO SCH (09:52)
[2022-12-14] MEDS: guaiFENesin (MUCINEX) 600 MG TAB PO SCH ×2 (09:52→21:10)
[2022-12-14] MEDS: amLODIPine 5 MG (NORVASC) TAB PO SCH (09:52)
[2022-12-14] MEDS: PANTOPRAZOLE 40 MG (PROTONIX) TAB PO SCH (09:52)
[2022-12-14] MEDS: NYSTATIN ORAL SUSP 5 ML UDC PO SCH ×4 (09:52→21:09)
[2022-12-14] MEDS: GABAPENTIN 300 MG (NEURONTIN) CAP PO SCH (09:52)
[2022-12-14] MEDS: CLOPIDOGREL 75 MG (PLAVIX) TABLET PO SCH (09:52)
[2022-12-14] MEDS: NIRMATRELVIR/RITONAVIR (PAXLOVID) TABLET PO SCH ×2 (09:56→21:11)
--- NOTE | 2022-12-14 09:59 | Progress Note - Hospitalist ---
Subjective HPI/CC On Admission Date Seen by Provider: Dec 14, 2022 Time Seen by Provider: 10:00 Altered Mental Status, recent COVID infection Subjective/Events-last exam No major events Set for DC tomorrow Labs reviewed No pain reported PT will be ordered Review of Systems General: Fatigue, Malaise Focused Exam Lactate Level Objective Exam Vital Signs Vital Signs Date Time Temp Pulse Resp B/P (MAP) Pulse Ox O2 Delivery O2 Flow Rate FiO2 12/15/22 02:51 93 Nasal Cannula 2.00 12/15/22 01:00 53 12/15/22 00:00 36.0 18 126/71 (89) Capillary Refill : Less Than 3 Seconds General Appearance: No Apparent Distress, WD/WN, Chronically ill Respiratory: Lungs Clear, Normal Breath Sounds Cardiovascular: Regular Rate, Rhythm Neurologic/Psychiatric: Alert, Oriented x3 Results/Procedures Lab Laboratory Tests 12/14/22 06:45 Patient resulted labs reviewed. Assessment/Plan Assessment and Plan Assess & Plan/Chief Complaint 1. Urinary tract infection with sepsis in a morbidly obese individual with stage IV-V chronic renal disease extremely poor prognosis 2. Diabetes, type II -Current poor p.o. intake blood sugars have not been significantly elevated we will just initiate sliding scale a for now and hold other diabetic medication. 3. History of hypertension with stage IV-V chronic renal disease. -Currently on Amlodipine 4. Severe anemia likely of chronic renal disease -12/12 pt given 1 unit of packed cells. Hgb 6.8. -Hgb is 8.2 -Lovenox/OAC contraindicated due to anemia severity 5. Recently diagnosed COVID infection -Paxlovid continue with 5-day course. 6. Elevated Dimer -Lung scan perfusion shows low probability for pulmonary embolism -Venous Doppler resulted no DVT Critical Care Critically Ill Patient MCCLOUD,JESÚS CORDERO Dec 14, 2022 09:59
[2022-12-14] MEDS: VENlafaxine 37.5 MG (EFFEXOR) TAB PO SCH ×3 (10:23→21:10)
[2022-12-14 11:17] VITALS: BP 142/57
--- NOTE | 2022-12-14 11:52 | Occupational Therapy Eval ---
OT Evaluation-General/PLF Medical Diagnosis Admission Date Dec 11, 2022 at 16:08 Medical Diagnosis: AMS/COVID Onset Date: Dec 11, 2022 Therapy Diagnosis Therapy Diagnosis: weakness/debility Precautions Precautions/Isolations: Airborne Isolation, Droplet Isolation, Fall Prevention Weight Bear Status Weight Bearing Restriction: Weight Bearing/Tolerated Patient reports she does not stand, however also reports she lives by herself and later that she lives in [place] Referral Referral Reason: Evaluation/Treatment Medical History Pertinent Medical History: Arthritis, CAD, DM, Heart Failure, HTN, Neuropathy Current History [facility] at [facility] Reviewed History: Yes Social History Home: Long-Term Current Living Status: Alone ADL-Prior Level of Function SCALE: Activities may be completed with or without assistive devices. 7-Avpmglxdjw-uyclvxz completes the activity by him/herself with no assistance from a helper. 5-Set-up or Clean-up Assistance-helper sets up or cleans up; patient completes activity. [place] assists only prior to or following the activity. 4-Supervision or Touching Assistance-helper provides verbal cues and/or touching/steadying and/or contact guard assistance as patient completes activity. Assistance may be provided throughout the activity or intermittently. 3-Partial/Moderate Assistance-helper does LESS THAN HALF the effort. [place] lifts, holds or supports trunk or limbs, but provides less than half the effort. 2-Substantial/Maximal Assistance-helper does MORE THAN HALF the effort. [place] lifts or holds trunk or limbs and provides more than half the effort. 7-Gtbvyflej-fmxobp does ALL the effort. Patient does none of the effort to complete the activity. Or, the assistance of 2 or more helpers is required for the patient to complete the activity. If activity was not attempted, code reason: 7-Patient Refused. 9-Not Applicable-not attempted and the patient did not perform the activity before the current illness, exacerbation or injury. 10-Not Attempted due to Environmental Limitations-(lack of equipment, weather restraints, etc.). 88-Not Attempted due to Medical Conditions or Safety Concerns. Self Care: Unknown Functional Cognition: Unknown unable to obtain accurate PLOF, observable dependent transfers and requires 2 person, feeds self. Patient begins crying when answering interview questions, Patient reports she doesn't know why she is crying Drive Self: No OT Current Status Subjective Eating lunch reclined 0 degrees in bed Mental Status/Objective Patient Orientation: Person, Confused, Place Attachments: Woody Catheter, IV, Oxygen, Telemetry Current Upper Extremity ROM RUE ROM WFLS for ADLS, LUE edema/lymphedema sleeve, OT positioned pillow to reduce edema and pain Upper Extremity Strength RUE -3/5, LUE -2/5 ADL-Treatment Eating (QC): 6 Oral Hygiene (QC): 4 Shower/Bathe Self (QC): 88 Upper Body Dressing (QC): 2 Lower Body Dressing (QC): 1 On/Off Footwear (QC): 1 Toileting Hygiene (QC): 1 Education OT Patient Education: Correct positioning, Disease process, Energy conservation, Exercise program, Modified ADL techniques, Progress toward Goal/Update tx plan, Purpose of tx/functional activities, Reviewed precautions, Rehab process, Safety issues Teaching Recipient: Patient Teaching Methods: Demonstration, Discussion Response to Teaching: Verbalize Understanding, Unable to Comprehend, Reinforcement Needed OT Care Home Goals Care Home Goals Oral Hygiene (QC): 5 Toileting Hygiene (QC): 2 Shower/Bathe Self (QC): 2 Upper Body Dressing (QC): 4 Lower Body Dressing (QC): 2 On/Off Footwear (QC): 2 (w/ADs) 1=Demonstrate adherence to instructed precautions during ADL tasks. 2=Patient will verbalize/demonstrate understanding of assistive devices/modifications for ADL. 3=Patient will improve strength/tolerance for activity to enable patient to perform ADL's. OT Education/Plan Problem List/Assessment Assessment: Decreased Activ Tolerance, Decreased Safety Aware, Decreased UE Strength, Dependent Transfers, Edema, Impaired Bed Mobility, Impaired Cognition, Impaired Coordination, Impaired Funct Balance, Impaired Self-Care Skills Discharge Recommendations Plan/Recommendations: Continue POC Therapy Discharge Recommendati: Post Acute OT Treatment Plan/Plan of Care Treatment,Training & Education: Yes Patient would benefit from OT for education, treatment and training to promote independence in ADL's, mobility, safety and/or upper extremity function for ADL's. Plan of Care: ADL Retraining, Concurrent Therapy, Functional Mobility, Group Exercise/Act as Ind, UE Funct Exercise/Act Treatment Duration: Jan 01, 2023 Frequency: 3 times per week (3-5 times per week) Estimated Hrs Per Day: .25 hour per day Agreement: Yes Rehab Potential: Fair Time Start Time: 11:18 Stop Time: 12:00 DATE: Dec 14, 2022 Total Time Billed (hr/min): 42 Billed Treatment Time 1 visit [facility] 1, ADL 2 42 min MANUEL KULKARNI OT Dec 14, 2022 11:52
--- NOTE | 2022-12-14 14:12 | Physical Therapy Evaluation ---
PT Evaluation-General Medical Diagnosis Admission Date Dec 11, 2022 at 16:08 Medical Diagnosis: AMS/COVID Onset Date: Dec 11, 2022 Therapy Diagnosis Therapy Diagnosis: generalized weakness/debility Precautions Precautions/Isolations: Airborne Isolation, Droplet Isolation, Fall Prevention Referral Physician: Amanda Reason for Referral: Evaluation/Treatment Medical History Pertinent Medical History: Arthritis, CAD, DM, Heart Failure, HTN, Neuropathy Additional Medical History morbid obesity Current History EMS from [place] secondary to AMS Reviewed History: Yes Social History Home: [facility] Current Living Status: Alone Prior Prior Level of Function SCALE: Activities may be completed with or without assistive devices. 3-Jfqjotbkqk-qhhvios completes the activity by him/herself with no assistance from a helper. 5-Set-up or Clean-up Assistance-helper sets up or cleans up; patient completes activity. [place] assists only prior to or following the activity. 4-Supervision or Touching Assistance-helper provides verbal cues and/or touching/steadying and/or contact guard assistance as patient completes activity. Assistance may be provided throughout the activity or intermittently. 3-Partial/Moderate Assistance-helper does LESS THAN HALF the effort. [place] lifts, holds or supports trunk or limbs, but provides less than half the effort. 2-Substantial/Maximal Assistance-helper does MORE THAN HALF the effort. [place] lifts or holds trunk or limbs and provides more than half the effort. 5-Ugruccazf-uhhsmg does ALL the effort. Patient does none of the effort to complete the activity. Or, the assistance of 2 or more helpers is required for the patient to complete the activity. If activity was not attempted, code reason: 7-Patient Refused. 9-Not Applicable-not attempted and the patient did not perform the activity before the current illness, exacerbation or injury. 10-Not Attempted due to Environmental Limitations-(lack of equipment, weather restraints, etc.). 88-Not Attempted due to Medical Conditions or Safety Concerns. Bed Mobility: 1 Transfers (B,C,W/C): 1 Gait: 9 Stairs: 9 Wheelchair Mobility: 1 Indoor Mobility (Ambulation): Not [place] Stairs: Not [place] Prior Devices Use: Manual wheelchair, Mechanical lift PT Evaluation-Current Subjective Patient agrees to PT. Objective Patient Orientation: Confused Attachments: Oxygen, Woody Catheter ROM/Strength ROM Lower Extremities bilateral LE limited due to disuse Strength Lower Extremities NT Integumentary/Posture Bladder Incontinence: Woody Cath Neuromuscular (Tone, Coordination, Reflexes) severely diminished with all Sensory Vision: Functional Hearing: Functional Transfers Roll Left to Right (QC): 1 Sit to Lying (QC): 1 Lying to Sitting/Side of Bed(Q: 1 Sit to Stand (QC): 9 PT required to utilize the bed in Trendelenburg to reposition patient up in bed due to patient's inability to assist Gait Does the Patient Walk?: No and Walking Goal NOT indicated Balance Sitting Static: Poor Sitting Dynamic: Poor Assessment/Needs Patient unable to sit EOB without dependent assist and required bed position in Trendelenburg to reposition patient up in bed due to patient's inability to assist. Patient will require a Maria G Lift for OOB/up to chair for patient and staff safety. Due to this, patient does not require skilled PT intervention. Rehab Potential: Guarded PT Plan Treatment/Plan Treatment Plan: Discontinue PT Treatment Duration: Dec 14, 2022 Frequency: 1 time per week Estimated Hrs Per Day: .25 hour per day Time Time In: 1318 Time Out: 1330 DATE: Dec 14, 2022 Total Billed Treatment Time: 12 Total Billed Treatment 1 visit [facility] 12 min SAVANA GIVENS PT Dec 14, 2022 14:12
[2022-12-14 16:07] VITALS: BP 152/76
[2022-12-14 18:13] VITALS: BP 151/77
[2022-12-14 19:16] VITALS: BP 151/77
[2022-12-14] MEDS: MELATONIN 3 MG TABLET PO PRN (21:09)
[2022-12-14] MEDS: GABAPENTIN 600 MG (NEURONTIN) TAB PO SCH (21:10)
[2022-12-15] VITALS: BP 126/71
[2022-12-15 01:14] VITALS: BP 126/71
[2022-12-15] MEDS: RT-ALBUTEROL HFA 8.5 GM INHALER IH SCH ×2 (02:50→07:13)
[2022-12-15 04:00] VITALS: BP 122/73
[2022-12-15] MEDS: inSUlin ASPART (NovoLOG) 1 UNIT/0.01 ML (CHARGE PER UNIT) SC SCH ×2 (05:50→11:50)
[2022-12-15 05:53] LABS: BASOPHILS % (AUTO) 1 % (0-10); EOSINOPHILS # (AUTO) 0.3 10^3/uL (0.0-0.3); EOSINOPHILS % (AUTO) 6 % (0-10); HEMATOCRIT 25 % (35-52); HEMOGLOBIN 7.6 g/dL (11.5-16.0); LYMPHOCYTES % (AUTO) 23 % (12-44); MEAN CORPUSCULAR HEMOGLOBIN 27 pg (25-34); MEAN CORPUSCULAR HGB CONC 31 g/dL (32-36); MEAN CORPUSCULAR VOLUME 88 fL (80-99); MEAN PLATELET VOLUME 9.6 fL (9.0-12.2); MONOCYTES # (AUTO) 0.5 10^3/uL (0.0-1.0); MONOCYTES % (AUTO) 12 % (0-12); NEUTROPHILS # (AUTO) 2.4 10^3/uL (1.8-7.8); NEUTROPHILS % (AUTO) 57 % (42-75); PLATELET COUNT 208 10^3/uL (130-400); WHITE BLOOD COUNT 4.2 10^3/uL (4.3-11.0)
[2022-12-15] MEDS ORDERED: TROUGH ORDER-PHARMACY XX ONE (06:00)
[2022-12-15 06:10] LABS: ALBUMIN 2.9 GM/DL (3.2-4.5); BILIRUBIN,TOTAL 0.3 MG/DL (0.1-1.0); CALCIUM 7.8 MG/DL (8.5-10.1); CREATININE SERUM 2.55 MG/DL (0.60-1.30); POTASSIUM 4.4 MMOL/L (3.6-5.0); TOTAL PROTEIN 5.9 GM/DL (6.4-8.2)
[2022-12-15 06:16] LABS: VANCOMYCIN,TROUGH 19.2 UG/ML (10.0-20.0)
[2022-12-15] MEDS: BUMETANIDE 1 MG (BUMEX) TAB PO SCH (06:22)
[2022-12-15] MEDS: KCL 20 MEQ TAB (K-DUR) PO SCH (06:22)
[2022-12-15] MEDS: LEVOTHYROXINE 125 MCG (LEVOTHROID) TABLET PO SCH (06:22)
[2022-12-15 07:40] VITALS: BP 157/81
[2022-12-15] MEDS: GABAPENTIN 300 MG (NEURONTIN) CAP PO SCH (10:01)
[2022-12-15] MEDS: TRIM/SULFAMETH 160/800 (SEPTRA DS) TAB PO SCH (10:01)
[2022-12-15] MEDS: amLODIPine 5 MG (NORVASC) TAB PO SCH (10:01)
[2022-12-15] MEDS: NIRMATRELVIR/RITONAVIR (PAXLOVID) TABLET PO SCH (10:01)
[2022-12-15] MEDS: CLOPIDOGREL 75 MG (PLAVIX) TABLET PO SCH (10:01)
[2022-12-15] MEDS: PANTOPRAZOLE 40 MG (PROTONIX) TAB PO SCH (10:01)
[2022-12-15] MEDS: NYSTATIN ORAL SUSP 5 ML UDC PO SCH (10:01)
[2022-12-15] MEDS: guaiFENesin (MUCINEX) 600 MG TAB PO SCH (10:01)
[2022-12-15] MEDS: VENlafaxine 37.5 MG (EFFEXOR) TAB PO SCH (10:01)
[2022-12-15] MEDS: inSUlin ASPART (NovoLOG) 1 UNIT/0.01 ML (CHARGE PER UNIT) SQ SCH ×2 (10:03→11:51)
[2022-12-15 11:05] VITALS: BP 173/69
--- NOTE | 2022-12-15 11:12 | Discharge Inst-Skilled Nursing ---
Discharge Inst-Skilled NF Reconcile Patient Problems Problems Reviewed?: Yes Chief Complaint Altered Mental Status, recent COVID infection Patient Instructions Patient Problems: Debility following COVID Goal: [place] Consult/Follow Up/Orders Follow Up Appt.: [facility] rounds Skilled NF Admit to: Certification (SNF) I certify that SNF services are required to be given on an inpatient basis because of the above named patient's need for correction care on a continuing basis for the conditions(s) for which he/she was receiving inpatient hospital services prior to his/her transfer to the SNF. Intermediate Facility Order: Nursing Services, Physical Therapy-Evaluate & Treat, Wound Care-Eval/Treat Oxygen Delivery Method: Nasal Cannula Discharge Diet: No Restrictions Resuscitation Status: Do Not Resuscitate New & Resume Previous Orders Continued Medications: Acetaminophen (Tylenol Extra Strength) 500 Mg Tablet 500 MG PO Q8H PRN for PAIN-MILD (1-4), TAB Albuterol Sulfate (Ventolin Hfa) 1 Puff Puff 2 PUFF IH Q4H PRN for SHORTNESS OF BREATH, EA ALPRAZolam (ALPRAZolam) 0.25 Mg Tablet 0.25 MG PO Q8H PRN for ANXIETY, TAB Amlodipine Besylate (Amlodipine Besylate) 5 Mg Tablet 5 MG PO DAILY, TAB Atorvastatin Calcium (Atorvastatin Calcium) 10 Mg Tablet 10 MG PO HS, TAB Bumetanide (Bumetanide) 2 Mg Tablet 2 MG PO BID Carvedilol (Carvedilol) 12.5 Mg Tablet 12.5 MG PO BID, TAB Clopidogrel Bisulfate (Plavix) 75 Mg Tablet 75 MG PO DAILY, TAB Doxepin HCl (Doxepin HCl) 6 Mg Tablet 6 MG PO HS PRN for INSOMNIA, TAB Gabapentin (Neurontin) 300 Mg Capsule 300 MG PO DAILY, CAP Gabapentin (Neurontin) 300 Mg Capsule 600 MG PO HS, CAP TAKES 2 (300MG) CAPS Glucagon,Human Recombinant (Glucagon Emergency Kit) 1 Mg Soln 1 MG IJ DAILY PRN for HYPOGLYCEMIA, EA Guaifenesin (Mucus ER) 600 Mg Tab.er.12h 600 MG PO BID, TAB Insulin Aspart (Novolog) 100 Unit/Ml Cartridge 15 UNITS SQ TIDAC, EA Insulin Determir (Levemir) 100 Unit/Ml Soln 20 UNITS SQ HS, EA Levothyroxine Sodium (Levothyroxine) 125 Mcg Capsule 125 MCG PO DAILY, CAP Nystatin (Nystatin) 100,000 Unit/Ml Oral.susp 5 ML PO QID, ML Pantoprazole Sodium (Protonix) 40 Mg Tablet.dr 40 MG PO DAILY, TAB Polyethylene Glycol 3350 (Miralax) 17 Gram Powd.pack 17 GM PO DAILY PRN for CONSTIPATION-2ND LINE, EACH Potassium Chloride (Potassium Chloride) 20 Meq Tab.er.prt 20 MEQ PO DAILY Venlafaxine HCl (Venlafaxine HCl) 37.5 Mg Tab 37.5 MG PO TID, TAB Discontinued Medications: Doxycycline Hyclate (Doxycycline Hyclate) 100 Mg Tablet 100 MG PO BID, TAB Letitia Patel Dec 15, 2022 11:12 LETITIA PATEL DO Dec 15, 2022 11:12
[2022-12-15] MEDS ORDERED: SULF1TAB38 PO (11:31)
[2022-12-15] MEDS ORDERED: NIRM1TAB PO (11:31)
--- NOTE | 2022-12-15 11:31 | Discharge Summary ---
Discharge Summary Hospital Course Was the Problem List Reviewed?: Yes Problems/Dx: (1) Sepsis Status: Acute (2) Dehydration Status: Resolved (3) Person under investigation for COVID-19 Status: Acute (4) Pneumonia involving left lung Status: Acute Hospital Course Date of Admission: Dec 11, 2022 at 16:08 Admission Diagnosis : Family Physician/Provider: Date of Discharge: 12/15/22 Discharge Diagnosis: [ ] Hospital Course: Standard course after she was admitted for COVID with PNA and UTI. Overall her baseline is very poor but she tolerated treatment and CKD remained stable. O2 maintained as she uses at [place]. Patient remained in isolation for COVID. Remained stable but overall prognosis is extremely poor and really needs hospice. Labs and Pending Lab Test: Laboratory Tests 12/14/22 16:10: Glucometer 107 12/14/22 20:29: Glucometer 136H 12/15/22 05:33: Glucometer 146H, White Blood Count 4.2L, Red Blood Count 2.81L, Hemoglobin 7.6L, Hematocrit 25L, Mean Corpuscular Volume 88, Mean Corpuscular Hemoglobin 27, Mean Corpuscular Hemoglobin Concent 31L, Red Cell Distribution Width 16.7H, Platelet Count 208, Mean Platelet Volume 9.6, Immature Granulocyte % (Auto) 0, Neutrophils (%) (Auto) 57, Lymphocytes (%) (Auto) 23, Monocytes (%) (Auto) 12, Eosinophils (%) (Auto) 6, Basophils (%) (Auto) 1, Neutrophils # (Auto) 2.4, Lymphocytes # (Auto) 1.0, Monocytes # (Auto) 0.5, Eosinophils # (Auto) 0.3, Basophils # (Auto) 0.0, Immature Granulocyte # (Auto) 0.0, Sodium Level 142, Potassium Level 4.4, Chloride Level 107, Carbon Dioxide Level 24, Anion Gap 11, Blood Urea Nitrogen 74H, Creatinine 2.55H, Estimat Glomerular Filtration Rate 20, BUN/Creatinine Ratio 29, Glucose Level 148H, Calcium Level 7.8L, Corrected Calcium 8.7, Total Bilirubin 0.3, Aspartate Amino Transf (AST/SGOT) 18, Alanine Aminotransferase (ALT/SGPT) 20, Alkaline Phosphatase 275H, Total Protein 5.9L, Albumin 2.9L, Vancomycin Level Trough 19.2 12/15/22 10:57: Glucometer 186H Microbiology 12/11/22 Blood Culture - Preliminary, Resulted No growth 12/11/22 Urine Culture - Preliminary, Resulted Proteus mirabilis Proteus mirabilis#2 Mixed Bacterial [place] Home Meds Active Reported ALPRAZolam 0.25 Mg Tablet 0.25 Mg PO Q8H PRN Amlodipine Besylate 5 Mg Tablet 5 Mg PO DAILY Mucus ER (Guaifenesin) 600 Mg Tab.er.12h 600 Mg PO BID Protonix (Pantoprazole Sodium) 40 Mg Tablet.dr 40 Mg PO DAILY Carvedilol 12.5 Mg Tablet 12.5 Mg PO BID Doxepin HCl 6 Mg Tablet 6 Mg PO HS PRN Glucagon Emergency Kit (Glucagon,Human Recombinant) 1 Mg Soln 1 Mg IJ DAILY PRN Miralax (Polyethylene Glycol 3350) 17 Gram Powd.pack 17 Gm PO DAILY PRN Nystatin 100,000 Unit/Ml Oral.susp 5 Ml PO QID Bumetanide 2 Mg Tablet 2 Mg PO BID Potassium Chloride 20 Meq Tab.er.prt 20 Meq PO DAILY Plavix (Clopidogrel Bisulfate) 75 Mg Tablet 75 Mg PO DAILY Atorvastatin Calcium 10 Mg Tablet 10 Mg PO HS Levemir (Insulin Determir) 100 Unit/Ml Soln 20 Units SQ HS Novolog (Insulin Aspart) 100 Unit/Ml Cartridge 15 Units SQ TIDAC Tylenol Extra Strength (Acetaminophen) 500 Mg Tablet 500 Mg PO Q8H PRN Venlafaxine HCl 37.5 Mg Tab 37.5 Mg PO TID Neurontin (Gabapentin) 300 Mg Capsule 600 Mg PO HS TAKES 2 (300MG) CAPS Neurontin (Gabapentin) 300 Mg Capsule 300 Mg PO DAILY Levothyroxine (Levothyroxine Sodium) 125 Mcg Capsule 125 Mcg PO DAILY Ventolin Hfa (Albuterol Sulfate) 1 Puff Puff 2 Puff IH Q4H PRN Assessment/Pt Instructions PCP [facility] rounds Discharge Planning: <30 minutes discharge planning Discharge Instructions Discharge Diet: No Restrictions Discharge Physical Examination Vital Signs Vital Signs Date Time Temp Pulse Resp B/P (MAP) Pulse Ox O2 Delivery O2 Flow Rate FiO2 12/15/22 11:05 35.8 52 18 173/69 (103) 96 Nasal Cannula 2.00 General Appearance: No Apparent Distress, Chronically ill Respiratory: Lungs Clear, Normal Breath Sounds Cardiovascular: Regular Rate, Rhythm Allergies: Coded Allergies: ceftriaxone (Verified Allergy, Intermediate, N/V/D, 12/11/22) adhesive tape (Verified Allergy, Unknown, 12/11/22) codeine (Verified Allergy, Unknown, Nausea, 12/11/22) morphine (Verified Allergy, Unknown, Nausea, 12/11/22) penicillin G (Verified Allergy, Unknown, 12/11/22) Discharge Summary Date of Admission Dec 11, 2022 at 16:08 Date of Discharge Discharge Date: Dec 15, 2022 Discharge Diagnosis 1. Urinary tract infection with sepsis in a morbidly obese individual with stage IV-V chronic renal disease extremely poor prognosis 2. Diabetes, type II -Current poor p.o. intake blood sugars have not been significantly elevated we will just initiate sliding scale a for now and hold other diabetic medication. 3. History of hypertension with stage IV-V chronic renal disease. -Currently on Amlodipine 4. Severe anemia likely of chronic renal disease -12/12 pt given 1 unit of packed cells. Hgb 6.8. -Hgb is 8.2 -Lovenox/OAC contraindicated due to anemia severity 5. Recently diagnosed COVID infection -Paxlovid continue with 5-day course. 6. Elevated Dimer -Lung scan perfusion shows low probability for pulmonary embolism -Venous Doppler resulted no DVT Clinical Quality Measures DVT/VTE Risk/Contraindication: Contraindications-Pharm: Other *list below* Other: severe anemia JESÚS MCCLOUD DO Dec 15, 2022 11:31
--- NOTE | 2022-12-15 11:38 | Occupational Ther Daily Note ---
OT Current Status-Daily Note Subjective More alert, none tearful today Mental Status/Objective Patient Orientation: Person, Place Attachments: Perry Catheter, IV, Oxygen ADL-Treatment Therapy Code Descriptions/Definitions Functional Saline Measure: 0=Not Assessed/NA 4=Minimal Assistance 1=Total Assistance 5=Supervision or Setup 2=Maximal Assistance 6=Modified Saline 3=Moderate Assistance 7=Complete IndependenceSCALE: Activities may be completed with or without assistive devices. 8-[id number]-[id number] completes the activity by him/herself with no assistance from a helper. 5-Set-up or Clean-up Assistance-helper sets up or cleans up; patient completes activity. Chester assists only prior to or following the activity. 4-Supervision or Touching Assistance-helper provides verbal cues and/or touching/steadying and/or contact guard assistance as patient completes activity. Assistance may be provided throughout the activity or intermittently. 3-Partial/Moderate Assistance-helper does LESS THAN HALF the effort. Chester lifts, holds or supports trunk or limbs, but provides less than half the effort. 2-Substantial/Maximal Assistance-helper does MORE THAN HALF the effort. [place] lifts or holds trunk or limbs and provides more than half the effort. 3-Xsmzoxjpl-wthxep does ALL the effort. Patient does none of the effort to complete the activity. Or, the assistance of 2 or more helpers is required for the patient to complete the activity. If activity was not attempted, code reason: 7-Patient Refused. 9-Not Applicable-not attempted and the patient did not perform the activity before the current illness, exacerbation or injury. 10-Not Attempted due to Environmental Limitations-(lack of equipment, weather restraints, etc.). 88-Not Attempted due to Medical Conditions or Safety Concerns. Eating (QC): 6 Oral Hygiene (QC): 5 Bathing Location: L Arm, R Arm, Chest, Abdomen Shower/Bathe Self (QC): 2 (sponge clothe sitting EOB) Upper Body Dressing (QC): 2 Lower Body Dressing (QC): 88 (perry, requires mechical lift, weakness) On/Off Footwear: 9 Toileting Hygiene (QC): 88 Toilet Transfer (QC): 88 Other Treatment Education to staff for elevation of LUE, patient sitting on EOB 10 minutes Education OT Patient Education: Correct positioning, Modified ADL techniques, Progress toward Goal/Update tx plan, Purpose of tx/functional activities, Reviewed precautions, Rehab process Teaching Recipient: Patient Teaching Methods: Demonstration, Discussion Response to Teaching: Verbalize Understanding, Reinforcement Needed OT Shelter Goals Systems Operator Goals Oral Hygiene (QC): 5 Toileting Hygiene (QC): 2 Shower/Bathe Self (QC): 2 Upper Body Dressing (QC): 4 Lower Body Dressing (QC): 2 On/Off Footwear (QC): 2 (w/ADs) 1=Demonstrate adherence to instructed precautions during ADL tasks. 2=Patient will verbalize/demonstrate understanding of assistive devices/modifications for ADL. 3=Patient will improve strength/tolerance for activity to enable patient to perform ADL's. OT Education/Plan Problem List/Assessment Assessment: Decreased Activ Tolerance, Decreased Safety Aware, Decreased UE Strength, Dependent Transfers, Impaired Bed Mobility (patient able to assist in sit to supine w/ reverse trendelenburg) Discharge Recommendations Plan/Recommendations: Continue POC Therapy Discharge Recommendati: Post Acute OT Treatment Plan/Plan of Care Treatment,Training & Education: Yes Patient would benefit from OT for education, treatment and training to promote independence in ADL's, mobility, safety and/or upper extremity function for ADL's. Plan of Care: ADL Retraining, Concurrent Therapy, Functional Mobility, Group Exercise/Act as Ind, UE Funct Exercise/Act Treatment Duration: Jan 01, 2023 Frequency: 3 times per week (3-5 times per week) Estimated Hrs Per Day: .25 hour per day Agreement: Yes Rehab Potential: Guarded Patient repositioning in bed all needs met LUE elevated w/ pillows Time Start Time: 10:20 Stop Time: 10:48 DATE: Dec 15, 2022 Total Time Billed (hr/min): 28 Billed Treatment Time 1 visit ADL 1, EX 1 28 min MANUEL KULKARNI OT Dec 15, 2022 11:38
[2022-12-18] MEDS ORDERED: AtorvaSTATin TABLET 10 MG TABLET PO SCH (21:00)
== END 2022-12-15 14:50 | DRG 871 ==
LOC: EDUNIT# 12:09 → ER FS 12:10 → 4TH 16:08
PROVIDERS: ADMIT Internal Medicine; ATTEND Internal Medicine
PROC: 8E0ZXY6 Isolation (ICD-10-PCS; principal; 2022-12-11)
DX: A41.81 Sepsis due to Enterococcus (principal); J12.82 Pneumonia due to coronavirus disease 2019; U07.1 COVID-19; N39.0 Urinary tract infection, site not specified; Z68.44 Body mass index [BMI] 60.0-69.9, adult; I13.2 Hypertensive heart and chronic kidney disease with heart failure and with stage 5 chronic kidney disease, or end stage renal disease; N18.5 Chronic kidney disease, stage 5; J44.0 Chronic obstructive pulmonary disease with (acute) lower respiratory infection; L03.116 Cellulitis of left lower limb; L03.115 Cellulitis of right lower limb; Z66 Do not resuscitate; A41.59 Other Gram-negative sepsis; E86.0 Dehydration; E66.01 Morbid (severe) obesity due to excess calories; E11.22 Type 2 diabetes mellitus with diabetic chronic kidney disease; I50.9 Heart failure, unspecified; I35.0 Nonrheumatic aortic (valve) stenosis; E78.00 Pure hypercholesterolemia, unspecified; E03.9 Hypothyroidism, unspecified; D63.1 Anemia in chronic kidney disease; I97.2 Postmastectomy lymphedema syndrome; M19.91 Primary osteoarthritis, unspecified site; Z79.4 Long term (current) use of insulin; Z99.81 Dependence on supplemental oxygen; Z85.3 Personal history of malignant neoplasm of breast; Z85.72 Personal history of non-Hodgkin lymphomas; Z88.1 Allergy status to other antibiotic agents; Z88.5 Allergy status to narcotic agent; Z88.0 Allergy status to penicillin; Z73.0 Burn-out
CPT/HCPCS: 36415; 70450; 71045; 76705; 80048; 80053; 80202; 81000; 82947; 83605; 83735; 83880; 84484; 85007; 85025; 85027; 85379; 85610; 85730; 86850; 86900; 86901; 86920; 87040; 87077; 87088; 87186; 93970; 94640

== ENCOUNTER → 2023-07-13 | Outpatient (CLI) | payer MEDICARE, MEDICAID ==
[~2023-07-13] MED LIST changes: +CARV12.53 PO; +DOXY100T2 PO; +GUAI-912 PO; -INSU100I29 SQ; +INSU100I30 SQ; -LOSA100T57 PO; +LOSA100T58 PO; +NYST15PO4 TP; +PANT40TA2 PO; +SULF1TAB38 PO
[2023-07-13 09:44] LABS: ALBUMIN 3.2 GM/DL (3.2-4.5); BILIRUBIN,TOTAL 0.2 MG/DL (0.1-1.0); CALCIUM 7.5 MG/DL (8.5-10.1); CREATININE SERUM 3.42 MG/DL (0.60-1.30); POTASSIUM 4.2 MMOL/L (3.6-5.0); TOTAL PROTEIN 5.7 GM/DL (6.4-8.2)
== END ==
LOC: LAB FS 08:38
PROVIDERS: ATTEND Family Medicine
DX: J44.9 Chronic obstructive pulmonary disease, unspecified (principal)
CPT/HCPCS: 80053